=== PATIENT | male | born 1980 | race Caucasian/White ===

== ENCOUNTER 2017-11-11 21:53 | Emergency (ER) | payer MEDICAID, SELFPAY ==
[2017-11-11 21:53] VITALS: BP 126/83; PULSE 77; RESP 16; TEMP 36.7; O2SAT 97; BMI 31.4
--- NOTE | 2017-11-11 22:45 | ED.VISSUMM ---
- ER Visit Summary Date of Service: 11/11/17 Chief Complaint: [] Earache History of Present Illness: The patient is a 37 M [] Complaining of bilateral earache for the last 10 days. Reports he was seen in this emergency department and provided with a nasal decongestant after evaluation of his ears revealed fluid behind the bilateral tympanic membranes. Patient reports the physician did not feel the patient required antibiotics. However he reports worsening discomfort and slight decrease in hearing. Denies fevers. Denies any other complaints at this time. Physical Examination: [] Afebrile, vital signs stable. Bilateral TMs show fluid behind the membrane as well as early signs of erythema consistent with early bilateral otitis media. Remainder of physical exam is unremarkable. Test Results: [] None. Emergency Department Course and Treatment: [] Patient provided azithromycin 500 mg orally in the emergency department with a prescription for azithromycin 250 mg #4. I encouraged PCP follow-up. Treatment Plan: [] Discharge on outpatient antibiotics. Disposition: [] Discharge, stable. Impression: [] Bilateral otitis media This note was generated with [employer] dictation software. It may contain incorrect words, spelling, and punctuation that were not noted in review of the chart prior to signing ED Disposition - Plan for ED Patient: Chief Complaint: Ear Problem Referrals: Care Physician,No Primary [Primary Care Provider] -
--- NOTE | 2017-11-11 22:47 | ED.DEP ---
ED Disposition - Plan for ED Patient: Disposition: Home or Assisted Living Chief Complaint: Ear Problem Instructions: ED Otitis Media Serous Adult Prescriptions: Azithromycin 250 mg PO DAILY #4 tab Referrals: Care Physician,No Primary [Primary Care Provider] -
[2017-11-11] MEDS: Azithromycin 250 MG Tablet 500 MG PO (22:49)
[2017-11-11 23:02] VITALS: RESP 18
== END 2017-11-11 23:02 | disposition home or self-care (01) ==
PROVIDERS: Emergency Provider Emergency Medicine
DX: H66.93 Otitis media, unspecified, bilateral (principal); E66.9 Obesity, unspecified; M31.1 Thrombotic microangiopathy; Z72.0 Tobacco use
CPT/HCPCS: 99283

== ENCOUNTER 2017-11-18 21:56 | Emergency (ER) | payer MEDICAID, SELFPAY ==
[2017-11-18 21:57] VITALS: BP 106/68; PULSE 96; RESP 15; TEMP 36.6; BMI 31.4
--- NOTE | 2017-11-18 23:00 | ED.VISSUMM ---
- ER Visit Summary Date of Service: 11/18/17 Chief Complaint: [] Left ear pain History of Present Illness: The patient is a 37 M [] complaining of left ear pain. Patient reports he was seen a few weeks ago and treated with antibiotics which started to clear up the discomfort. He was placed on a 5 day Z-Damon. He reports that discomfort started to slowly recur and he has slight difficulty with hearing. 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 He reports he cannot take steroids. Denies fevers. Physical Examination: [] HEENT: Moist mucous membranes. Examination of the bilateral tympanic membranes reveals erythema on the left side consistent with otitis media. Right TM is unremarkable. Test Results: [] None. Emergency Department Course and Treatment: [] Patient provided with a prescription for azithromycin and a single oral dose of azithromycin in the emergency department. He was provided 10 days worth of antibiotics. Treatment Plan: [] Follow-up with PCP. Disposition: [] Discharge, stable. Impression: [] Left otitis media History of TTP This note was generated with [employer] dictation software. It may contain incorrect words, spelling, and punctuation that were not noted in review of the chart prior to signing ED Disposition - Plan for ED Patient: Chief Complaint: Ear Problem Referrals: Care Physician,No Primary [Primary Care Provider] -
--- NOTE | 2017-11-18 23:02 | ED.DEP ---
ED Disposition - Plan for ED Patient: Disposition: Home or Assisted Living Chief Complaint: Ear Problem Instructions: ED Otitis Media Acute Adult Prescriptions: Azithromycin 250 mg PO DAILY 10 Days #10 tab Referrals: Care Physician,No Primary [Primary Care Provider] -
[2017-11-18] MEDS: Azithromycin 250 MG Tablet 500 MG PO (23:10)
[2017-11-18 23:11] VITALS: RESP 18
== END 2017-11-18 23:11 | disposition home or self-care (01) ==
PROVIDERS: Emergency Provider Emergency Medicine
DX: H66.92 Otitis media, unspecified, left ear (principal); M31.1 Thrombotic microangiopathy
CPT/HCPCS: 99283

== ENCOUNTER 2018-02-14 12:06 | Emergency (ER) | payer MEDICAID, SELFPAY ==
[2018-02-14 12:06] VITALS: BP 129/88; PULSE 80; RESP 16; TEMP 36.8; O2SAT 97; BMI 35.9
--- NOTE | 2018-02-14 12:20 | RAD_ITS ---
STUDY: X-RAY - RIGHT WRIST REASON FOR EXAM: Male, 38 years old. Wrist pain TECHNIQUE: 3 view(s) of the wrist were obtained. COMPARISON: None. FINDINGS: Normal visualized distal radius and ulna. Normal radiocarpal articulation. Normal distal radioulnar articulation. Normal carpal bones. Normal carpal articulations. Normal carpometacarpal articulation of the thumb. Normal second through fifth carpometacarpal articulations. Normal visualized metacarpal bones. The soft tissue structures are unremarkable. RAD/Wrist min 3 Views IMPRESSION: Normal x-ray examination of the wrist. Electronically Signed: Ayden Garcia MD at 12:42 EDT Tel , Service support ,
--- NOTE | 2018-02-14 13:19 | ED.VISSUMM ---
- ER Visit Summary Date of Service: 02/14/18 Chief Complaint: Pain right wrist] History of Present Illness: The patient is a 38 M [presents the emergency department with pain in his right wrist ?2 weeks. Patient denies any direct trauma. 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 Patient is right-hand dominant. Patient states that in the morning typically has a hard time making a fist. Patient describes numbness to his entire hand. Physical Examination: [HEENT-PERRLA, EOMI. Cranial nerves II through XII grossly intact. TMs clear. Mucous membranes moist. No adenopathy. Cardiovascular-regular rate and rhythm without murmur or ectopy Lungs-clear to auscultation, chest wall stable without crepitus or subcu emphysema Abdomen-normoactive bowel sounds, soft, nontender, no rebound or rigidity, no peritoneal signs. Extremities-intact ?4, normal range of motion, normal pulses, atraumatic]. Right wrist-no swelling or ecchymosis noted. No deformity. Neurovascular intact distally. I cannot reproduce his pain with palpation. Negative Tinel's. No thenar eminence wasting noted. Test Results: [X-rays of the right wrist obtained by nursing staff from triage was normal] Emergency Department Course and Treatment: [Patient will be given a wrist splint] Treatment Plan: [Patient will be advised to follow-up with orthopedics on-call within next 5-7 days] Disposition: [Discharged home in stable condition] Impression: [Right wrist pain-etiology uncertain] This note was generated with [employer] dictation software. It may contain incorrect words, spelling, and punctuation that were not noted in review of the chart prior to signing ED Disposition - Plan for ED Patient: Chief Complaint: Upper Extremity Injury Referrals: Care Physician,No Primary [Primary Care Provider] -
--- NOTE | 2018-02-14 13:22 | ED.DCSUM_ITS ---
- ER Visit Summary Date of Service: 02/14/18 Chief Complaint: Pain right wrist] History of Present Illness: The patient is a 38 M [presents the emergency department with pain in his right wrist ?2 weeks. Patient denies any direct trauma. 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 Patient is right-hand dominant. Patient states that in the morning typically has a hard time making a fist. Patient describes numbness to his entire hand. Physical Examination: [HEENT-PERRLA, EOMI. Cranial nerves II through XII grossly intact. TMs clear. Mucous membranes moist. No adenopathy. Cardiovascular-regular rate and rhythm without murmur or ectopy Lungs-clear to auscultation, chest wall stable without crepitus or subcu emphysema Abdomen-normoactive bowel sounds, soft, nontender, no rebound or rigidity, no peritoneal signs. Extremities-intact ?4, normal range of motion, normal pulses, atraumatic]. Right wrist-no swelling or ecchymosis noted. No deformity. Neurovascular intact distally. I cannot reproduce his pain with palpation. Negative Tinel' s. No thenar eminence wasting noted. Test Results: [X-rays of the right wrist obtained by nursing staff from triage was normal] Emergency Department Course and Treatment: [Patient will be given a wrist splint ] Treatment Plan: [Patient will be advised to follow-up with orthopedics on-call within next 5-7 days] Disposition: [Discharged home in stable condition] Impression: [Right wrist pain-etiology uncertain] This note was generated with [employer] dictation software. It may contain incorrect words, spelling, and punctuation that were not noted in review of the chart prior to signing ED Disposition - Plan for ED Patient: Chief Complaint: Upper Extremity Injury Referrals: Care Physician,No Primary [Primary Care Provider] -
--- NOTE | 2018-02-14 13:22 | ED.DEP ---
ED Disposition - Plan for ED Patient: Chief Complaint: Upper Extremity Injury Instructions: ED Sprain Wrist Prescriptions: Hydrocodone/Acetaminophen [[place] 5-325 Tablet] 1 - 2 ea PO 4X/DAY PRN PRN 3 Days #12 tab PRN Reason: Pain Referrals: Care Physician,No Primary [Primary Care Provider] - Eric Parkinson MD [STAFF PHYSICIAN] - 5-7 Days
[2018-02-14 13:43] VITALS: PULSE 71; RESP 22; O2SAT 97
--- NOTE | 2018-02-14 13:44 | ED.RN ---
THIS NURSE REVIEWED D/C INSTRUCTIONS WITH PT. PT VERBALIZED UNDERSTANDING OF INSTRUCTIONS. PT DENIES FURTHER NEEDS OR QUESTIONS AT THIS TIME. PT AMBULATES FROM ROOM ON OWN WITHOUT ASSISTANCE FROM[facility]
== END 2018-02-14 13:44 | disposition home or self-care (01) ==
LOC: ED 13:28
PROVIDERS: Emergency Provider Emergency Medicine
DX: M25.531 Pain in right wrist (principal); Z72.0 Tobacco use
CPT/HCPCS: 73110; 99283

== ENCOUNTER 2018-06-06 20:09 | Emergency (ER) | payer MEDICAID, SELFPAY ==
[2018-06-06 20:10] VITALS: BP 130/78; PULSE 83; RESP 16; TEMP 36.5; O2SAT 97; BMI 36.3
--- NOTE | 2018-06-06 20:41 | ED.VISSUMM ---
- ER Visit Summary Date of Service: 06/06/18 Chief Complaint: Left ankle pain History of Present Illness: The patient is a 38 M who presents with left ankle pain that began tonight. Patient states he was stepping off of his porch when he felt pain in his ankle. Patient thinks he hyper dorsiflexed his ankle. Patient states the pain is over the posterior aspect of his left ankle. Patient states the pain is worse with weightbearing. Patient also admits to some numbness in his left heel with weightbearing. Patient denies any weakness. Patient denies any other paresthesias. Patient denies any calf pain. Physical Examination: Vital signs are stable. Patient is afebrile. Patient is in no acute distress. Musculoskeletal exam reveals tenderness over the posterior aspect of the left ankle. Achilles tendon is intact. Perry test is negative. Pedal pulses are equal bilaterally. Sensation was intact to light touch in all digits. Capillary refill is less than 2 seconds in all digits. Range of motion of the ankle was limited secondary to pain. There is no laxity appreciated. The remaining physical exam is within normal limits. Test Results: X-rays of the left ankle were obtained. There is no acute fracture. Emergency Department Course and Treatment: Patient was given an Aircast and crutches. Patient was instructed to ice and elevate the left ankle. Patient was given a prescription for Naprosyn. Patient was instructed to follow-up with his primary care physician in 7-10 days. Disposition: Discharge home Impression: Left ankle pain This note was generated with [employer] dictation software. It may contain incorrect words, spelling, and punctuation that were not noted in review of the chart prior to signing ED Disposition - Plan for ED Patient: Disposition: Home or Assisted Living Chief Complaint: Lower Extremity Injury Diagnosis: Left ankle sprain Instructions: ED Sprain Ankle W X Ray Prescriptions: Naproxen [Naprosyn] 500 mg PO BID PRN #20 tab Referrals: Care Physician,No Primary [NON-STAFF] -
== END 2018-06-06 22:11 | disposition home or self-care (01) ==
PROVIDERS: Emergency Provider Emergency Medicine
DX: M25.572 Pain in left ankle and joints of left foot (principal); S93.402A Sprain of unspecified ligament of left ankle, initial encounter; M31.1 Thrombotic microangiopathy; Z72.0 Tobacco use; X58.XXXA Exposure to other specified factors, initial encounter; Y93.01 Activity, walking, marching and hiking; Y92.008 Other place in unspecified non-institutional (private) residence as the place of occurrence of the external cause; Y99.8 Other external cause status
CPT/HCPCS: 73610; 99284

== ENCOUNTER 2018-08-08 12:54 | Emergency (ER) | payer MEDICAID, SELFPAY ==
[2018-08-08 12:55] VITALS: BP 141/89; PULSE 87; RESP 17; TEMP 36.6; O2SAT 97; BMI 35.2
--- NOTE | 2018-08-08 13:07 | RAD_ITS ---
STUDY: X-RAY - LEFT SHOULDER REASON FOR EXAM: Left shoulder pain, no specific injury. TECHNIQUE: 3 view(s) of the shoulder. COMPARISON: None. FINDINGS: Normal glenohumeral articulation. Normal acromioclavicular joint. Normal acromion. There is chronic healed fracture deformity of the clavicle. Normal humeral head and visualized proximal humerus. The soft tissue structures are unremarkable. Normal visualized pulmonary apex. RAD/Shoulder min 2 Views IMPRESSION: Chronic healed fracture deformity of the clavicle. Otherwise, unremarkable x-ray examination of the left shoulder. Electronically Signed: Abhinav Recinos MD at 13:55 EDT Tel , Service support ,
[2018-08-08] MEDS: Naproxen 500 MG Tablet PO (13:20)
--- NOTE | 2018-08-08 14:06 | ED.VISSUMM ---
- ER Visit Summary Date of Service: 08/08/18 Chief Complaint: Left shoulder pain History of Present Illness: The patient is a 38 M who has no primary care physician. He is right-hand dominant. Reports that 2 days ago he woke up with left shoulder pain. He denies any trauma. No fall, MVA, or change in activity. Reports that the stabbing pain is 10 at 10 worsening a 10 currently. Is worsened by movement. Son relieved by Tylenol. He denies any numbness distally. Physical Examination: Vitals: Stable. Afebrile. General: Well-nourished and well-developed. Head: Normocephalic atraumatic. Neck: Supple, no lymphadenopathy. No JVD. Nontender. Cardiovascular: Regular rate and rhythm. No murmurs. Respiratory: No respiratory distress. Clear to auscultation bilaterally. Abdominal: Soft, nontender, nondistended, normal bowel sounds. No guarding, rebound, or peritoneal signs. Back: Nontender. Extremities: Mild diffuse tenderness palpation over his entire left shoulder. There is moderate pain in the bicipital groove. He has full range of motion without any difficulty. No erythema or warmth to suggest a septic joint. He is neurovascular intact distally. Skin: Normal color, no rash. Neurologic: Alert and oriented ?3. Cranial nerves II through XII are intact. Normal strength and sensation. Psych: Normal affect. Test Results: X-ray shows a healed clavicle fracture and no acute disease. Emergency Department Course and Treatment: Patient was treated with naproxen. He is resting comfortably. Treatment Plan: Patient will be discharged instructions to follow-up the [facility] in 1 week if not improving. He will be placed on naproxen at home. Return to the emergency department for any worsening symptoms. Disposition: To home in improved and stable condition. Impression: 1. Left shoulder pain, acute. This note was generated with [employer] dictation software. It may contain incorrect words, spelling, and punctuation that were not noted in review of the chart prior to signing ED Disposition - Plan for ED Patient: Disposition: Home or Assisted Living Chief Complaint: Upper Extremity Injury Instructions: ED Shoulder Pain [facility] Prescriptions: Naproxen [Naprosyn] 500 mg PO BID #14 tablet Referrals: Krista Brumfield [NON-STAFF] - 1 Week if not improving
[2018-08-08 14:41] VITALS: PULSE 87; RESP 14; O2SAT 98
== END 2018-08-08 14:41 | disposition home or self-care (01) ==
LOC: ED 13:47
PROVIDERS: Emergency Provider Emergency Medicine
DX: M25.512 Pain in left shoulder (principal); M31.1 Thrombotic microangiopathy; Z72.0 Tobacco use; Z79.899 Other long term (current) drug therapy
CPT/HCPCS: 73030; 99282

== ENCOUNTER 2018-10-04 14:34 | Emergency (ER) | payer MEDICAID, SELFPAY ==
[2018-10-04 14:34] VITALS: BMI 31.4
[2018-10-04 14:36] VITALS: BP 126/74; PULSE 87; RESP 17; TEMP 36.1; O2SAT 97; BMI 37.7
--- NOTE | 2018-10-04 15:20 | ED.VISSUMM ---
- ER Visit Summary Date of Service: 10/04/18 Chief Complaint: Abrupt periumbilical pain that started at approximately noon associated with 2 loose watery stools. History of Present Illness: The patient is a 38 M who presents with acute periumbilical pain that started approximately at noon. He reports 2 loose watery brown stool since onset of pain. He denies vomiting. He denied him emesis, hematochezia or melena. He denies mucus or blood in his stool. He has had no ill contacts. He has not been on antibiotics in the past month. He has not consumed any undercooked food or anything that tasted unusual to him. He does complain of thirst, dry mouth and lightheadedness. He denies fever, chills or night sweats. He denies ocular, visual or auditory symptoms. He denies cardiac or respiratory symptoms. He denies decreased urine output or change in color his urine. He denies any inguinal or testicular pain. He denies skin lesions, joint pain or joint swelling Physical Examination: Vital signs noted and remarkable for blood pressure of 126/74 and temperature 96.9. Head is atraumatic normocephalic. Pupils are equal round reactive. Extraocular muscles are intact. TMs are pearly white with landmarks noted. Nares patent with no drainage. Posterior pharynx without erythema or exudate. Uvula is midline. Tongue and buccal mucosa are dry. There is no dysphonia or dysphasia. Trachea is midline. There is no stridor with auscultation of the neck. Heart is regular without murmur, gallop or rub. S1 and S2 are normal. Lungs are clear to auscultation with good movement of air bilaterally. Abdomen is soft nontender with no palpable pulsatile mass or abdominal bruit. There is no evidence of umbilical or inguinal hernia. There is no ventral hernia. There are no skin lesions. He has no inguinal lymphadenopathy. There is no CVA tenderness noted. Test Results: None Emergency Department Course and Treatment: IV was established she received 1 L of normal saline. He was treated with Imodium for his diarrhea. Since the last Bentyl as an allergy he was not given anything for his cramping pain. Plan is to reassess after IV fluids have infused. At 1605 patient reported he feels better would like to go home. He has not had any vomiting or diarrhea during his stay. He tolerated p.o. challenge. Treatment Plan: Appropriate home-going instructions for viral gastroenteritis Disposition: Discharged home in stable improved condition Impression: 1. Abdominal pain with diarrhea 2. Mild dehydration 3. Tobacco use This note was generated with [employer] dictation software. It may contain incorrect words, spelling, and punctuation that were not noted in review of the chart prior to signing ED Disposition - Plan for ED Patient: Disposition: Home or Assisted Living Chief Complaint: Abd Pain Instructions: ED Diarrhea Viral Referrals: Care Physician,No Primary [Primary Care Provider] - Additional Instructions: If you have recurrence or any concerns contact your primary care physician that you were assigned to by your insurance carrier [facility]. The name of your doctor is listed on your insurance card
[2018-10-04] MEDS: Loperamide 2 MG Capsule 4 MG PO (15:21)
[2018-10-04] MEDS: 0.9% Normal Saline 1,000 ML 1000 ML IV (15:21)
--- NOTE | 2018-10-04 15:23 | ED.DCSUM_ITS ---
- ER Visit Summary Date of Service: 10/04/18 Chief Complaint: Abrupt periumbilical pain that started at approximately noon associated with 2 loose watery stools. History of Present Illness: The patient is a 38 M who presents with acute periumbilical pain that started approximately at noon. He reports 2 loose watery brown stool since onset of pain. He denies vomiting. He denied him emesis, hematochezia or melena. He denies mucus or blood in his stool. He has had no ill contacts. He has not been on antibiotics in the past month. He has not consumed any undercooked food or anything that tasted unusual to him. He does complain of thirst, dry mouth and lightheadedness. He denies fever, chills or night sweats. He denies ocular, visual or auditory symptoms. He denies cardiac or respiratory symptoms. He denies decreased urine output or change in color his urine. He denies any inguinal or testicular pain. He denies skin lesions, joint pain or joint swelling Physical Examination: Vital signs noted and remarkable for blood pressure of 126/74 and temperature 96.9. Head is atraumatic normocephalic. Pupils are equal round reactive. Extraocular muscles are intact. TMs are pearly white with landmarks noted. Nares patent with no drainage. Posterior pharynx without erythema or exudate. Uvula is midline. Tongue and buccal mucosa are dry. There is no dysphonia or dysphasia. Trachea is midline. There is no stridor with auscultation of the neck. Heart is regular without murmur, gallop or rub. S1 and S2 are normal. Lungs are clear to auscultation with good movement of air bilaterally. Abdomen is soft nontender with no palpable pulsatile mass or abdom inal bruit. There is no evidence of umbilical or inguinal hernia. There is no ventral hernia. There are no skin lesions. He has no inguinal lymphadenopathy. There is no CVA tenderness noted. Test Results: None Emergency Department Course and Treatment: IV was established she received 1 L of normal saline. He was treated with Imodium for his diarrhea. Since the last Bentyl as an allergy he was not given anything for his cramping pain. Plan is to reassess after IV fluids have infused. At 1605 patient reported he feels better would like to go home. He has not had any vomiting or diarrhea during his stay. He tolerated p.o. challenge. Treatment Plan: Appropriate home-going instructions for viral gastroenteritis Disposition: Discharged home in stable improved condition Impression: 1. Abdominal pain with diarrhea 2. Mild dehydration 3. Tobacco use This note was generated with [employer] dictation software. It may contain incorrect words, spelling, and punctuation that were not noted in review of the chart prior to signing ED Disposition - Plan for ED Patient: Disposition: Home or Assisted Living Chief Complaint: Abd Pain Instructions: ED Diarrhea Viral Referrals: Care Physician,No Primary [Primary Care Provider] - Additional Instructions: If you have recurrence or any concerns contact your primary care physician that you were assigned to by your insurance carrier [facility]. The name of your doctor is listed on your insurance card
[2018-10-04 15:24] VITALS: BP 114/80; PULSE 70; RESP 16; TEMP 36.3; O2SAT 97
[2018-10-04 16:15] VITALS: BP 112/82; PULSE 80; RESP 14; RESP 17; TEMP 36.3; O2SAT 99
== END 2018-10-04 16:17 | disposition home or self-care (01) ==
PROVIDERS: Emergency Provider Emergency Medicine
DX: R10.33 Periumbilical pain (principal); R19.7 Diarrhea, unspecified; E86.0 Dehydration; Z72.0 Tobacco use
CPT/HCPCS: 99283; J7030; A4216

== ENCOUNTER 2018-12-13 00:02 | Emergency (ER) | payer MEDICAID, SELFPAY ==
[2018-12-13 00:03] VITALS: BP 175/98; PULSE 103; RESP 20; TEMP 36.6; O2SAT 100; BMI 37.8
--- NOTE | 2018-12-13 00:17 | RAD_ITS ---
STUDY: X-RAY - LEFT FOOT CLINICAL: Male, 38 years old. Right great toe pain status post crush injury. TECHNIQUE: 3 view(s) of the foot. COMPARISON: None. FINDINGS: Normal talus, calcaneus, and tarsal bones. Normal visualized subtalar, talonavicular, calcaneocuboid, tarsal and tarsometatarsal articulations. Normal metatarsi. Normal metatarsophalangeal joint of the great toe. Normal tibial and fibular sesamoid bones. Normal interphalangeal joint of the great toe. Normal phalanges of the great toe. Normal second through fifth metatarsophalangeal joints. Normal interphalangeal joints and phalanges of the lesser toes. The soft tissue structures are unremarkable. RAD/Foot min 3 Views IMPRESSION: Normal x-ray examination of the foot. Electronically Signed: Ba Obrien MD at 1:02 EST Tel , Service support ,
--- NOTE | 2018-12-13 01:08 | ED.VIS.GEN ---
History of Present Illness Chief Complaint: Lower Extremity Injury Informant: Patient Onset: Today, Hours - 1 Context: Sudden Onset - accidentally dropped foot of a couch on his left foot Timing: Continuous Quality: pain Location: left foot Current Severity: Moderate Maximum Severity: Severe Worsened by: palpation, movement, walking Relieved by: remaining still/rest Associated Symptoms: none. no numbness. no laceration/bleeding. - Past Medical History (1) TTP (thrombotic thrombocytopenic purpura) Status: Chronic Past Medical History - Allergies and Home Meds Allergies/Adverse Reactions: Allergies adhesive Allergy (Verified 10/04/18 14:35) Rash dicyclomine HCl [From Bentyl] Allergy (Verified 10/04/18 14:35) Hives fentanyl Allergy (Verified 10/04/18 14:35) Hives Latex, Natural Rubber Allergy (Verified 10/04/18 14:35) Rash methadone Allergy (Verified 10/04/18 14:35) Other hard to swallow morphine Allergy (Verified 10/04/18 14:35) Swelling prednisone Allergy (Verified 10/04/18 14:35) Rash tramadol HCl [From Ultram] Allergy (Verified 10/04/18 14:35) Hives aspirin Adverse Reaction (Verified 10/04/18 14:35) Other hx of TTP-drops platelets ketorolac tromethamine [From Toradol] Adverse Reaction (Verified 10/04/18 14:35) Upset Stomach Primary Care Physician: Care Physician,No Primary [Primary Care Provider] - Surgical History: - - Ports put in for therapy of TTP, removed Lives: Spouse/ Significant Other Smoking Status: Current every day smoker - Family History Maternal Family History: Reports: - - Lung cancer, Paternal Family History: Reports: - - , unknown cause Offspring Family History: Reports: - - Brother, mental illness, type unknown Review of Systems Musculoskeletal: Reports: Extremity Pain. Denies: Neck pain Skin: Reports: Abrasions - no lacerations Neurological: Denies: Weakness, Numbness Physical Exam Vital Signs/Narrative: Vital Signs Temp Pulse Resp BP Pulse Ox 12/13/18 00:03 97.9 F 103 H 20 H 175/98 H 100 Inital Vital Signs reviewed: Yes General: Well nourished, Well developed, No Acute Distress Head: Normocephalic, Atraumatic Extremities: No edema, Tenderness - very tender dorsum of left foot, over MT 1-3. less tender over navicular. nontender toes and ankle and lateral/peroneal aspect of foot. FROM at ankle w/o diff. Skin: Normal color, Trauma - mild contusion dorsum of left foot, over MT 1-2 area. skin intact. Neurological: Alert, Oriented x3, Cranial nerves II-XII grossly intact, Normal Strength, Normal Sensation Psychological: Normal affect, Normal Mood Diagnostic/Tx/Re-eval Clinical Impression(s) from Imaging Studies Foot X-Ray 12/13/18 00:17 IMPRESSION: Normal x-ray examination of the foot. Electronically Signed: Ba Obrien MD at 1:02 EST Tel , Service support , - Medical Decision Making X-ray shows no acute fractures or Lisfranc injury. Patient was given a postop shoe for comfort as well as a dose of ibuprofen and advised to use ibuprofen and ice at home as needed. He was advised to follow-up to have his blood pressure rechecked. ED Disposition - Plan for ED Patient: Disposition: Home or Assisted Living Diagnosis: Contusion of left foot, initial encounter Instructions: ED Contusion Foot Referrals: Krista Brumfield [NON-STAFF] - As Needed Additional Instructions: Apply ice to affected area and take tylenol and/or ibuprofen as needed for pain. Use Post-op shoe as needed, for as long as you feel you need to.
--- NOTE | 2018-12-13 01:12 | ED.DCSUM_ITS ---
History of Present Illness Chief Complaint: Lower Extremity Injury Informant: Patient Onset: Today, Hours - 1 Context: Sudden Onset - accidentally dropped foot of a couch on his left foot Timing: Continuous Quality: pain Location: left foot Current Severity: Moderate Maximum Severity: Severe Worsened by: palpation, movement, walking Relieved by: remaining still/rest Associated Symptoms: none. no numbness. no laceration/bleeding. - Past Medical History (1) TTP (thrombotic thrombocytopenic purpura) Status: Chronic Past Medical History - Allergies and Home Meds Allergies/Adverse Reactions: Allergies adhesive Allergy (Verified 10/04/18 14:35) Rash dicyclomine HCl [From Bentyl] Allergy (Verified 10/04/18 14:35) Hives fentanyl Allergy (Verified 10/04/18 14:35) Hives Latex, Natural Rubber Allergy (Verified 10/04/18 14:35) Rash methadone Allergy (Verified 10/04/18 14:35) Other hard to swallow morphine Allergy (Verified 10/04/18 14:35) Swelling prednisone Allergy (Verified 10/04/18 14:35) Rash tramadol HCl [From Ultram] Allergy (Verified 10/04/18 14:35) Hives aspirin Adverse Reaction (Verified 10/04/18 14:35) Other hx of TTP-drops platelets ketorolac tromethamine [From Toradol] Adverse Reaction (Verified 10/04/18 14:35) Upset Stomach Primary Care Physician: Care Physician,No Primary [Primary Care Provider] - Surgical History: - - Ports put in for therapy of TTP, removed Lives: Spouse/ Significant Other Smoking Status: Current every day smoker - Family History Maternal Family History: Reports: - - Lung cancer, Paternal Family History: Reports: - - , unknown cause Offspring Family History: Reports: - - Brother, mental illness, type unknown Review of Systems Musculoskeletal: Reports: Extremity Pain. Denies: Neck pain Skin: Reports: Abrasions - no lacerations Neurological: Denies: Weakness, Numbness Physical Exam Vital Signs/Narrative: Vital Signs Temp Pulse Resp BP Pulse Ox 12/13/18 00:03 97.9 F 103 H 20 H 175/98 H 100 Inital Vital Signs reviewed: Yes General: Well nourished, Well developed, No Acute Distress Head: Normocephalic, Atraumatic Extremities: No edema, Tenderness - very tender dorsum of left foot, over MT 1- 3. less tender over navicular. nontender toes and ankle and lateral/peroneal aspect of foot. FROM at ankle w/o diff. Skin: Normal color, Trauma - mild contusion dorsum of left foot, over MT 1-2 area. skin intact. Neurological: Alert, Oriented x3, Cranial nerves II-XII grossly intact, Normal Strength, Normal Sensation Psychological: Normal affect, Normal Mood Diagnostic/Tx/Re-eval Clinical Impression(s) from Imaging Studies Foot X-Ray 12/13/18 00:17 IMPRESSION: Normal x-ray examination of the foot. Electronically Signed: Ba Obrien MD at 1:02 EST Tel , Service support , - Medical Decision Making X-ray shows no acute fractures or Lisfranc injury. Patient was given a postop shoe for comfort as well as a dose of ibuprofen and advised to use ibuprofen and ice at home as needed. He was advised to follow-up to have his blood pressure rechecked. ED Disposition - Plan for ED Patient: Disposition: Home or Assisted Living Diagnosis: Contusion of left foot, initial encounter Instructions: ED Contusion Foot Referrals: Krista Brumfield [NON-STAFF] - As Needed Additional Instructions: Apply ice to affected area and take tylenol and/or ibuprofen as needed for pain. Use Post-op shoe as needed, for as long as you feel you need to.
[2018-12-13] MEDS: Ibuprofen 600 MG Tablet PO (01:13)
[2018-12-13 01:15] VITALS: RESP 18
== END 2018-12-13 01:16 | disposition home or self-care (01) ==
PROVIDERS: Emergency Provider Emergency Medicine
DX: S90.32XA Contusion of left foot, initial encounter (principal); M31.1 Thrombotic microangiopathy; F17.200 Nicotine dependence, unspecified, uncomplicated; W20.8XXA Other cause of strike by thrown, projected or falling object, initial encounter; Y93.89 Activity, other specified; Y92.009 Unspecified place in unspecified non-institutional (private) residence as the place of occurrence of the external cause; Y99.8 Other external cause status
CPT/HCPCS: 73630; 99283

== ENCOUNTER 2019-01-25 20:17 | Emergency (ER) | payer MEDICAID, SELFPAY ==
[2019-01-25 20:19] VITALS: BP 131/95; PULSE 96; RESP 16; TEMP 36.8; O2SAT 96; BMI 34.4
--- NOTE | 2019-01-25 21:20 | RAD_ITS ---
STUDY: X-RAY - RIGHT SHOULDER REASON FOR EXAM: Male, 38 years old. Shoulder pain. TECHNIQUE: 4 view(s) of the shoulder. COMPARISON: Left shoulder dated August 08, 2018 FINDINGS: Normal glenohumeral articulation. Normal acromioclavicular joint. Normal acromion. Normal humeral head and visualized proximal humerus. The soft tissue structures are unremarkable. Normal visualized pulmonary apex. RAD/Shoulder min 2 Views IMPRESSION: Within normal limits x-ray examination of the shoulder. Electronically Signed: Diane Lopez MD at 22:06 EDT Tel , Service support ,
[2019-01-25] MEDS: Orphenadrine 60 MG/2 ML Ampul IM (21:50)
--- NOTE | 2019-01-25 23:02 | ED.DEP ---
ED Disposition - Plan for ED Patient: Instructions: ED Sprain Shoulder Prescriptions: Cyclobenzaprine [Flexeril] 10 mg PO TID PRN #20 tablet PRN Reason: Muscle Spasm Referrals: Care Physician,No Primary [Primary Care Provider] -
--- NOTE | 2019-01-25 23:06 | ED.VISSUMM ---
- ER Visit Summary Date of Service: 01/25/19 Chief Complaint: Right shoulder pain History of Present Illness: The patient is a 38 M presenting with right shoulder pain. He states he woke up with the symptoms and felt that he may have slept on his shoulder wrong. 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 He states it worsened while at work. He had no direct trauma. Pain is worsened with movement. Denies other complaints. Physical Examination: Vitals are stable. Patient is afebrile. Alert no acute distress. HEENT exam is unremarkable. Neck is supple. Lungs are clear and equal bilaterally. Heart is regular rate and rhythm. Extremities right anterior shoulder tenderness with painful range of motion. Neurovascularly intact distally Skin is warm and dry. No focal neurologic deficit. Normal strength and sensation Remainder of exam is unremarkable. Emergency Department Course and Treatment: Patient was given Norflex IM. On reevaluation he is resting comfortably. He is given a prescription for Flexeril. Advised to follow-up with his primary care physician. Advised return to ED if worsening complaints. Disposition: Discharge home Impression: Right shoulder sprain This note was generated with [employer] dictation software. It may contain incorrect words, spelling, and punctuation that were not noted in review of the chart prior to signing ED Disposition - Plan for ED Patient: Instructions: ED Sprain Shoulder Prescriptions: Cyclobenzaprine [Flexeril] 10 mg PO TID PRN #20 tablet PRN Reason: Muscle Spasm Referrals: Care Physician,No Primary [Primary Care Provider] -
[2019-01-25 23:29] VITALS: BP 124/88; PULSE 93; RESP 18; O2SAT 96
--- NOTE | 2019-01-25 23:30 | ED.RN ---
WORK NOTE GIVEN BY DR. DACOSTA.
== END 2019-01-25 23:31 | disposition home or self-care (01) ==
PROVIDERS: Emergency Provider Emergency Medicine
DX: S43.401A Unspecified sprain of right shoulder joint, initial encounter (principal); Z72.0 Tobacco use; X58.XXXA Exposure to other specified factors, initial encounter; Y93.84 Activity, sleeping; Y92.003 Bedroom of unspecified non-institutional (private) residence as the place of occurrence of the external cause; Y99.8 Other external cause status
CPT/HCPCS: 73030; 96372; 99282

== ENCOUNTER 2019-03-13 17:57 | Emergency (ER) | payer MEDICAID, SELFPAY ==
[2019-03-13 17:57] VITALS: BP 120/77; PULSE 106; RESP 18; TEMP 36.8; O2SAT 97; BMI 34.4
--- NOTE | 2019-03-13 18:29 | ED.DCSUM_ITS ---
History of Present Illness Chief Complaint: Cold Sx Informant: Patient Onset: Weeks - 1.5 to 2 weeks ago Context: Sudden Onset Timing: Continuous Quality: URI symptoms Location: Respiratory Current Severity: Mild Maximum Severity: Moderate Worsened by: Smoking and coughing Relieved by: Nothing Associated Symptoms: no fever or chills. Positive nasal symptoms Narrative: Patient is a 39-year-old male who is a smoker 1 pack/day presents with 1.5 to 2 weeks of respiratory symptoms. He reports productive cough of yellow to green- colored sputum. He denies fever or chills. He denies ocular, visual or auditory symptoms. He does report mild nasal congestion initially. He denies history of PE or DVT. He has no risk factors. He denies cardiac or GI symptoms. He denies leg pain, swelling discoloration. Prior similar symptoms: No Recent Illness/Hospitalization: No - Past Medical History (1) Obesity (BMI 30.0-34.9) Status: Chronic (2) TTP (thrombotic thrombocytopenic purpura) Status: Chronic (3) Hemorrhoids Status: Suspected Past Medical History - Allergies and Home Meds Allergies/Adverse Reactions: Allergies adhesive Allergy (Verified 03/13/19 17:59) Rash dicyclomine HCl [From Bentyl] Allergy (Verified 03/13/19 17:59) Hives fentanyl Allergy (Verified 03/13/19 17:59) Hives Latex, Natural Rubber Allergy (Verified 03/13/19 17:59) Rash methadone Allergy (Verified 03/13/19 17:59) Other hard to swallow morphine Allergy (Verified 03/13/19 17:59) Swelling prednisone Allergy (Verified 03/13/19 17:59) Rash tramadol HCl [From Ultram] Allergy (Verified 03/13/19 17:59) Hives aspirin Adverse Reaction (Verified 03/13/19 17:59) Other hx of TTP-drops platelets ketorolac tromethamine [From Toradol] Adverse Reaction (Verified 03/13/19 17:59) Upset Stomach Primary Care Physician: Care Physician,No Primary [Primary Care Provider] - Prior records reviewed: Yes Surgical History: no surgical history, - - Ports put in for therapy of TTP, removed Lives: Alone Smoking Status: Current every day smoker Alcohol: Rare - Family History Maternal Family History: Reports: - - Lung cancer, Paternal Family History: Reports: - - , unknown cause Offspring Family History: Reports: - - Brother, mental illness, type unknown Review of Systems General: Denies: Chills, Fever, Malaise, Subjective, Sweats, Weight loss, - Eyes: Denies: Visual changes - bilaterally, Blurred Vision - bilaterally ENT: Denies: Bilateral ear pain, Rhinorrhea, Sore throat Cardiovascular: Denies: Chest pain, Palpitations Respiratory: Reports: Cough, Sputum. Denies: Dyspnea, Dyspnea on exertion, Orthopnea, Paroxysmal nocturnal dyspnea Gastrointestinal: Denies: Abdominal pain, Nausea, Vomiting, Diarrhea, Melena, Hematochezia Musculoskeletal: Denies: Myalgias, Arthralgias, Neck pain, Back pain, Swelling, Extremity Pain Skin: Denies: Rash, Wounds Neurological: Denies: Headache, Weakness, Numbness Hematologic: Denies: Easy bruising Allergy: Denies: Uticaria Physical Exam Vital Signs/Narrative: Vital Signs Temp Pulse Resp BP Pulse Ox 03/13/19 17:57 98.2 F 106 H 18 120/77 97 Inital Vital Signs reviewed: Yes General: Well nourished, Well developed, Obese, No Acute Distress Head: Normocephalic, Atraumatic Eyes: Perrl, EOMI. Negative for: Pale conjunctiva, Scleral icterus, - ENT: Moist mucous membranes, No rhinorrhea, TM's clear Neck: Supple, Nontender, No lymphadenopathy, No JVD Cardiovascular: Regular rhythm, No murmurs, Tachycardia Respiratory: No distress, CTA bilaterally, Chest nontender Abdomen: Soft, Nontender, Nondistended, Normal bowel sounds Extremities: Nontender, No edema Skin: Normal color, No rash Neurological: Alert, Oriented x3, Cranial nerves II-XII grossly intact, Normal Strength, Normal Sensation Psychological: Normal affect, Normal Mood Diagnostic/Tx/Re-eval Chest X-Ray - ED: 2 View, Read by ED Physician, Normal, Heart, Mediastinum, Bony Structures, - - The lateral view the retrocardiac space has interstitial markings suggestive of infiltrate. However respiratory volume is limited. - Medical Decision Making With symptoms for 2 weeks and productive cough will obtain chest x-ray to evaluate for pneumonia versus purulent bronchitis. Since patient has productive cough green-colored sputum for 1.5 to 2 weeks and is a smoker will place on doxycycline. X-ray may reveal a retrocardiac infiltrate. ED Disposition - Plan for ED Patient: Disposition: Home or Assisted Living Diagnosis: Community acquired pneumonia Instructions: ED Pneumonia Adult Prescriptions: Doxycycline 100 mg PO BID #14 cap Referrals: Care Physician,No Primary [Primary Care Provider] - Additional Instructions: If no improvement in 3 to 5 days follow-up with your [facility] care provider named on your insurance card. It is in your best interest to stop smoking. Your chest x-ray reveals abnormality and may represent an early pneumonia.
--- NOTE | 2019-03-13 18:35 | RAD_ITS ---
STUDY: X-RAY CHEST REASON FOR EXAM: Male, 39 years old. Cough TECHNIQUE: PA and lateral views of the chest COMPARISON: X-Ray Chest March 27 2018 FINDINGS: The lungs are clear. There are no pleural effusions. There is no pneumothorax. The heart is normal in size. The visualized osseous structures are within normal limits. RAD/Chest PA and Lateral IMPRESSION: No acute thoracic pathology. Electronically Signed: Chaim Almanza, at 18:49 EDT Tel , Service support ,
[2019-03-13] MEDS: Doxycycline 100 MG CAPSULE PO (19:02)
[2019-03-13 19:03] VITALS: BP 114/70; PULSE 75; RESP 19; O2SAT 96
== END 2019-03-13 19:05 | disposition home or self-care (01) ==
PROVIDERS: Emergency Provider Emergency Medicine
DX: J18.9 Pneumonia, unspecified organism (principal); F17.210 Nicotine dependence, cigarettes, uncomplicated; E66.9 Obesity, unspecified; M31.1 Thrombotic microangiopathy
CPT/HCPCS: 71046; 99283

== ENCOUNTER 2021-02-01 06:15 | Emergency (ER) | payer MEDICAID, SELFPAY ==
[2021-02-01 06:17] VITALS: BP 150/97; PULSE 107; RESP 18; TEMP 37.5; O2SAT 100; BMI 44.9
--- NOTE | 2021-02-01 06:46 | RAD_ITS ---
STUDY: X-RAY - RIGHT ANKLE REASON FOR EXAM: Right ankle injury 2 days ago, unable to bear weight, right foot pain. TECHNIQUE: 3 view(s) of the ankle. COMPARISON: Radiographs 04/28/2016. FINDINGS: Normal visualized distal tibia and fibula. Normal medial and lateral malleoli. Normal tibiotalar articulation and ankle mortise. There is a posterior calcaneal enthesophyte. The visualized subtalar, talonavicular, calcaneocuboid and tarsal articulations are normal. There is a chronic fracture of the fifth metatarsal base without osseous union as on the prior study. The soft tissue structures are unremarkable. RAD/Ankle min 3 Views IMPRESSION: Chronic fracture of the fifth metatarsal base without osseous union. Posterior calcaneal enthesophyte. No demonstrated recent fracture. Electronically Signed: Abhinav Recinos MD at 7:23 EDT Tel , Service support ,
--- NOTE | 2021-02-01 06:46 | RAD_ITS ---
STUDY: X-RAY - RIGHT FOOT CLINICAL: Right foot pain, right ankle injury 2 days ago, unable to bear weight. TECHNIQUE: 3 view(s) of the foot. COMPARISON: Radiographs 03/16/2011. FINDINGS: There is a posterior calcaneal enthesophyte. Otherwise, unremarkable talus, calcaneus, and tarsal bones. Normal visualized subtalar, talonavicular, calcaneocuboid, tarsal and tarsometatarsal articulations. There is chronic fracture of the fifth metatarsal base without osseous union as on the prior study. Normal metatarsophalangeal joint of the great toe. Normal tibial and fibular sesamoid bones. Normal interphalangeal joint of the great toe. Normal phalanges of the great toe. Normal second through fifth metatarsophalangeal joints. Normal interphalangeal joints and phalanges of the lesser toes. The soft tissue structures are unremarkable. RAD/Foot min 3 Views IMPRESSION: Chronic fracture of the fifth metatarsal base without osseous union. Posterior calcaneal enthesophyte. No demonstrated recent fracture. Electronically Signed: Abhinav Recinos MD at 7:21 EDT Tel , Service support ,
--- NOTE | 2021-02-01 06:46 | ED.DCSUM_ITS ---
- ER Visit Summary Date of Service: 02/01/21 Chief Complaint: Right ankle injury History of Present Illness: The patient is a 40 M who presents with a right ankle injury that occurred 2 days ago. Patient states he tripped and fell. Patient states he twisted his right ankle at that time. Patient states the pain is aching and throbbing. Patient states nothing makes it worse and nothing makes it better. Patient denies any paresthesias or weakness. Patient states he has been taking [id number] ibuprofen and Tylenol with minimal relief. Patient states that he has noticed some increased swelling today. Patient also states he has a court ordered counseling appointment today and is unsure if he will be able to make it if he has to use his crutches or cannot ambulate. Physical Examination: Vital signs are stable. Patient is afebrile. Patient is in no acute distress. Musculoskeletal exam reveals tenderness over the right ankle. There is some edema and ecchymosis noted. There is no obvious deformity. There is no bony crepitance or step-off. There is no tenderness over the proximal fibula. There is some mild tenderness over the fifth metatarsal. Pedal pulses are equal bilaterally. Sensation was intact to light touch in all digits. Capillary refill is less than 2 seconds in all digits. Test Results: X-rays of the right [ankle] were obtained. There are [3] views. On my interpretation, there is no acute fracture. There is no dislocation. There is no soft tissue swelling. Radiologist also interpreted the x-rays and agrees. X-rays of the right foot were obtained. There are [3] views. On my interpretation, there is no acute fracture. 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 There is no dislocation. There is no soft tissue swelling. Radiologist also interpreted the x-rays and agrees. Emergency Department Course and Treatment: Patient was given an Aircast. Patient was instructed to ice and elevate the right ankle and foot. Patient was instructed to take Tylenol as needed for pain. Patient was instructed to follow-up with his primary care physician in 5 to 7 days. Patient understood and was agreeable with the plan. All questions were answered. Disposition: Discharge home Impression: Acute sprain right ankle This note was generated with [employer] dictation software. It may contain incorrect words, spelling, and punctuation that were not noted in review of the chart prior to signing ED Disposition - Plan for ED Patient: Disposition: Home or Assisted Living Diagnosis: Right ankle sprain Instructions: ED Sprain Ankle W X Ray Referrals: [facility],Out of [NON-STAFF] - 5-7 Days
[2021-02-01] MEDS: HYDROcodone Bitartrate/Apap 5/325 Tablet PO (06:54)
--- NOTE | 2021-02-01 07:41 | ED.RN ---
walking boot ordered. pt aware none available. given aircast per dr pabon
== END 2021-02-01 07:55 | disposition home or self-care (01) ==
PROVIDERS: Emergency Provider Emergency Medicine
DX: S93.401A Sprain of unspecified ligament of right ankle, initial encounter (principal); W01.0XXA Fall on same level from slipping, tripping and stumbling without subsequent striking against object, initial encounter; Z87.891 Personal history of nicotine dependence
CPT/HCPCS: 73610; 73630; 99285

== ENCOUNTER 2021-05-18 18:13 | Emergency (ER) | payer MEDICAID, SELFPAY ==
[2021-05-18 18:14] VITALS: BP 140/86; PULSE 104; RESP 18; TEMP 36.4; O2SAT 97; BMI 37.6
--- NOTE | 2021-05-18 18:22 | RAD_ITS ---
HISTORY: pain EXAMINATION/TECHNIQUE: XR Forearm 2 Views: COMPARISON: None FINDINGS: BONES/JOINTS: No acute fracture or dislocation. Preservation of the joint spaces. No sclerotic or destructive changes observed. SOFT TISSUES: No soft tissue swelling or gas. No radiopaque foreign body. RAD/Forearm 2 Views IMPRESSION: Unremarkable study. at 1928 Reported and signed by: Georges Frey MD Electronically Signed: Georges Frey MD at 19:27 EDT Tel , Service support ,
--- NOTE | 2021-05-18 18:23 | EX.ED.UPPERE ---
HPI History of Present Illness Chief Complaint: Upper Extremity Injury Narrative Narrative: 41-year-old male presenting with right elbow and right forearm pain for the last 2 to 3 weeks. Patient states that he was lifting a heavy open cabinet when he noticed the pain. The pain is been progressive throughout the last couple of weeks. 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 He was seen by his physician in [place] who told him to just monitor this because he had no obvious traumatic injury. He felt no cracks or pops during the injury. The pain has been progressive. Patient been taking Tylenol ibuprofen for pain without relief. Patient denies numbness or tingling. He admits to pain with pronation and supination of the forearm as well as flexion extension of the elbow. [facility] Medical History (Updated 05/18/21 @ 18:37 by Jannie Landry) TTP (thrombotic thrombocytopenic purpura) Home Medications hydroxyzine pamoate 100 mg PO DAILY 02/01/21 [History Last Taken Unknown] lamotrigine 200 mg PO QHS 02/01/21 [History Last Taken Unknown] quetiapine 400 mg PO QHS 02/01/21 [History Last Taken Unknown] naproxen 500 mg PO BID PRN #20 tab 05/18/21 [Rx Last Taken Unknown] Allergy/AdvReac Type Severity Reaction Status Date / Time adhesive Allergy Rash Verified 05/18/21 18:16 dicyclomine HCl [From Bentyl] Allergy Hives Verified 05/18/21 18:16 fentanyl Allergy Hives Verified 05/18/21 18:16 Latex, Natural Rubber Allergy Rash Verified 05/18/21 18:16 methadone Allergy Other Verified 05/18/21 18:16 morphine Allergy Swelling Verified 05/18/21 18:16 prednisone Allergy Rash Verified 05/18/21 18:16 tramadol HCl [From Ultram] Allergy Hives Verified 05/18/21 18:16 aspirin AdvReac Other Verified 05/18/21 18:16 ketorolac tromethamine AdvReac Upset Verified 05/18/21 18:16 [From Toradol] Stomach Social History Smoking Status: Current every day smoker tobacco type: cigarettes ROS ROS ED Constitutional Constitutional ED: Denies chills, fever(s) or sweats Eyes Eyes: Denies blurry vision or change in vision ENT ENT ED: Denies ear pain, rhinorrhea or sore throat Cardiovascular Cardiovascular: Denies chest pain, palpitations or racing heartbeat Respiratory/Chest Respiratory/Chest: Denies cough, dyspnea or sputum Gastrointestinal Gastrointestinal: Denies abdominal pain, constipation, diarrhea or vomiting Genitourinary Genitourinary ED: Denies dysuria, hematuria or urinary frequency Musculoskeletal Musculoskeletal: Reports other Details: Right elbow and forearm pain ; Denies arthralgias Integumentary Denies abscess, Abrasions or rash Neurologic Neurologic: Denies headache(s), paresthesias or weakness Psychiatric Psychiatric: Denies anxiety, depression, suicidal ideation or suicidal thoughts Endocrine Endocrinology: Denies polydipsia or polyuria EXAM Physical Exam Const Vital Signs: 05/18/21 18:14 Temperature 97.6 F L Temperature Source Temporal Pulse Rate 104 H Respiratory Rate 18 Blood Pressure 140/86 H Blood Pressure Mean 104 Pulse Ox 97 Positive well nourished General Appearance ED: NAD HEENT normocephalic and atraumatic Eyes PERRL and EOMs intact bilaterally Extremity Extremity Narrative: Tenderness to palpation over the right elbow and right forearm. No crepitance. No deformity. Patient has full range of motion with pain elicited with motion. Right radial pulses 2+. Right hand neurovascular intact brisk cap refill to all 5 fingers. 5/5 motor strength in the right upper extremity, forearm, hand. No sensory deficits. Compartments are soft. Neuro oriented x3 Sensorium / Orientation: alert Psych mental status grossly normal Skin Lesions: no lesions Rashes: no rashes MDM MDM MDM Narrative Medical decision making narrative: Patient presenting with a couple of weeks of right elbow and forearm pain. Patient states this happened after lifting a heavy object. Patient's right elbow and right forearm x-rays on my interpretation shows no acute fracture or subluxation. His physical exam is only significant for some mild tenderness. His compartments are soft. He is neurovascular intact throughout the right upper extremity, forearm, hand. Patient given Naprosyn in the ED. He is counseled that if he continues has problems he should follow-up with orthopedics he was given a follow-up referral. Patient stable for discharge at this time. Impression: 1. Left elbow sprain Discharge Plan Triage Chief Complaint: Upper Extremity Injury ED Provider: Markell Mcconnell Dx/Rx/DC Orders Instructions: ED Sprain, Elbow Prescriptions: New naproxen 500 mg tablet 500 mg PO BID PRN (Reason: pain) Qty: 20 RF: 0 No Action hydroxyzine pamoate 100 MG capsule 100 mg PO DAILY RF: 0 lamotrigine 200 MG tablet 200 mg PO QHS RF: 0 quetiapine 400 MG tablet extended release 24 hr 400 mg PO QHS RF: 0 Referrals: JASS RUTHERFORD [Other] Jean Marie Kumar DO [STAFF PHYSICIAN] - As Needed Disposition Disposition: Home, Self Care
--- NOTE | 2021-05-18 18:35 | RAD_ITS ---
HISTORY: elbow pain COMPARISON: None FINDINGS: # of images incl. paperwork: 3 XR Elbow Min 3 Views: 3 views SOFT TISSUES: There is no displacement of the anterior or posterior fat pads. No radiopaque foreign body. BONES: No acute fracture or subluxation. JOINTS: Preservation of the joint spaces. RAD/Elbow min 3 Views IMPRESSION: No acute bony injury. at 1924 Reported and signed by: Georges Frey MD Electronically Signed: Georges Frey MD at 19:23 EDT Tel , Service support ,
[2021-05-18] MEDS: Naproxen 500 MG Tablet PO (18:49)
[2021-05-18 20:04] VITALS: RESP 18
== END 2021-05-18 20:04 | disposition home or self-care (01) ==
PROVIDERS: Emergency Provider Student in an Organized Health Care Education/Training Program
DX: S53.402A Unspecified sprain of left elbow, initial encounter (principal); F17.210 Nicotine dependence, cigarettes, uncomplicated; X58.XXXA Exposure to other specified factors, initial encounter
CPT/HCPCS: 73080; 73090; 99283

== ENCOUNTER 2021-06-16 17:19 | Inpatient (IN) | payer MEDICAID, SELFPAY ==
[2021-06-16] VITALS (9 sets, daily range): BP systolic 125–148; BP diastolic 66–103; PULSE 78–98; RESP 14–20; TEMP 36.3–36.9; O2SAT 96–98; BMI 41.3; BMI 42.5
--- NOTE | 2021-06-16 18:14 | EDS_ITS ---
HPI History of Present Illness Chief Complaint: Cough Detail of Chief Complaint: Blurred vision for 3 days. Increased urination. Onset/Context/Timing Onset: Days Context: Gradual Onset Timing: Continuous Current Severity: Mild Maximum Severity: Mild Narrative Narrative: 41-year-old male history of TTP for which he is treated [facility]. States the last 3 days has had blurred vision. Says both eyes. He denies any headache or trauma. Also states he has had increased urination. Denies any history of diabetes but his mom is diabetic. Denies any dysuria hematuria. Recently was seen and treated at a [facility] emergency department which she had a negative ultrasound for DVT tells me. He denies any nausea, vomiting, diarrhea. Prior similar symptoms: No Recent Illness/Hospitalization: No PFSH PFSH Medical History TTP (thrombotic thrombocytopenic purpura) Home Medications lamotrigine 200 mg PO QHS 02/01/21 [History Last Taken Unknown] quetiapine 400 mg PO QHS 02/01/21 [History Last Taken Unknown] Allergy/AdvReac Type Severity Reaction Status Date / Time adhesive Allergy Rash Verified 06/16/21 17:20 dicyclomine HCl [From Bentyl] Allergy Hives Verified 06/16/21 17:20 fentanyl Allergy Hives Verified 06/16/21 17:20 Latex, Natural Rubber Allergy Rash Verified 06/16/21 17:20 methadone Allergy Other Verified 06/16/21 17:20 morphine Allergy Swelling Verified 06/16/21 17:20 prednisone Allergy Rash Verified 06/16/21 17:20 tramadol HCl [From Ultram] Allergy Hives Verified 06/16/21 17:20 aspirin AdvReac Other Verified 06/16/21 17:20 ketorolac tromethamine AdvReac Upset Verified 06/16/21 17:20 [From Toradol] Stomach Social History Smoking Status: Current every day smoker tobacco type: cigarettes ROS ROS ED ROS Narrative Blurred vision. Increased urination. Review of Systems ROS Unobtainable: Denies due to encephalopathy Constitutional Constitutional ED: Denies chills or fever(s) Eyes Eyes: Reports blurry vision and change in vision ENT ENT ED: Reports sore throat; Denies ear pain Cardiovascular Cardiovascular: Denies chest pain or palpitations Respiratory/Chest Respiratory/Chest: Reports cough; Denies dyspnea Gastrointestinal Gastrointestinal: Denies abdominal pain, diarrhea, nausea or vomiting Genitourinary Genitourinary ED: Denies dysuria or hematuria Musculoskeletal Musculoskeletal: Denies myalgias Integumentary Denies rash Neurologic Neurologic: Denies headache(s) Psychiatric Psychiatric: Denies depression Endocrine Endocrinology: Denies polyuria Allergic/Immunologic Allergic/Immunologic ED: Denies urticaria EXAM Physical Exam Narrative Exam Narrative: Middle-age male no acute distress vital signs stable afebrile. Initial blood pressure 125/103. He does not look septic toxic no distress. He is lying in bed calmly. HEENT exam dry reactive light his motions are intact. No facial droop. Moist remembers. Neck nontender no lymphadenopathy. Lungs clear to auscultation bilaterally. Heart regular rate and rhythm no murmur rate about 95. Abdomen soft nontender normal bowel sounds no peritoneal signs. Patient moving all 4 extremities. Neurovascular intact. Normal strength. No edema. Neurologically is awake alert with no focal motor deficits. No slurred speech. No facial droop. Const Vital Signs: 06/16/21 17:21 06/16/21 18:03 06/16/21 19:41 Temperature 97.3 F L Temperature Source Temporal Pulse Rate 98 Respiratory Rate 17 14 Respiratory Effort Short of Breath Labored Respiratory Pattern Normal Blood Pressure 125/103 H Blood Pressure Mean 110 Pulse Ox 96 Oxygen Delivery Method Room Air Room Air Positive well nourished and well developed; Negative for cachectic, contractures or unkempt General Appearance ED: well developed and NAD; Negative for unkempt, cachectic or contractures Nutritional Appearance: Negative for cachectic HEENT Reports moist mucous membranes Negative for trauma or tenderness Eyes PERRL and EOMs intact bilaterally General Eye ED: Negative for pale conjunctiva or scleral icterus Neck no lymphadenopathy, supple and no JVD General: Negative for tenderness Chest Wall inspection of chest normal and palpation of chest normal Resp normal respiratory effort and clear to auscultation bilaterally Effort and Inspection: Negative for pain with movement Auscultation: Negative for rales, rhonchi or wheezes Cardio regular rate, regular rhythm, S1 normal heart sound, S2 normal heart sound and no murmurs GI normal to inspection, nondistended, normoactive bowel sounds, non-tender, non- distended and no masses Auscultation: normoactive bowel sounds Palpation: soft; Negative for tender, guarding or rebound tenderness present Back/Spine no CVA tenderness Extremity normal to inspection General Extremety ED: Negative for edema or tenderness General Extremity: Negative for edema Neuro oriented x3 and CN's II-XII intact bilaterally Sensorium / Orientation: alert; Negative for orientation impaired, lethargic or stuporous Motor Exam: strength 5/5 throughout Psych mental status grossly normal Appearance: Negative for unkempt Mood & Affect: Negative for depressed or tearful Skin no rashes or lesions noted and no wounds MDM MDM MDM Narrative Medical decision making narrative: 41-year-old male with blurry vision and increased urination. Exam unremarkable. Clinically think is his new onset diabetes. They got a BG T which is reading greater than 500. Screening labs will be obtained. He will be treated with IV fluids. Repeat exam at 815 unchanged. I went over test results the patient will be admitted to bring his blood sugar down. Also for diabetic counseling. And to rule out DKA. Patient be given a second liter normal saline. Will be started on insulin drip to bring down his blood sugar. He still could be early DKA without the anion gap. Lab Data Attestation: I reviewed the patient's lab results. Lab results narrative: CBC shows a white count 1.5. Hemoglobin 16. BGT is greater than 500. Chemistry shows sodium of 128 gap of 14 creatinine of 1.1. Glucose is 787. Small amount of ketones. Labs: Laboratory Results - last 24 hr 06/16/21 06/16/21 06/16/21 18:16 18:30 18:30 WBC 11.5 H RBC 5.33 Hgb 16.3 Hct 45.8 MCV 85.9 MCH 30.6 MCHC 35.6 RDW Std Deviation 38.2 RDW Coeff of Serafin 12.3 Plt Count 308 MPV 10.6 Immature Gran % (Auto) 0.400 Neut % (Auto) 71.4 H Lymph % (Auto) 17.2 L [place] % (Auto) 7.0 Eos % (Auto) 3.0 Baso % (Auto) 1.0 Absolute Neuts (auto) 8.2 H Absolute Lymphs (auto) 1.98 Nucleated RBC % 0 Sodium 120 L Potassium 4.4 Chloride 84 L Carbon Dioxide 22.0 Anion Gap 14 BUN 25 H Creatinine 1.14 Estim Creat Clear Calc 86.14 Est GFR (MDRD) Af Amer 91 Est GFR (MDRD) Non-Af 76 BUN/Creatinine Ratio 21.9 H Glucose 787 H* Calcium 9.1 Acetone Level POC Glucose > 500 H* 06/16/21 18:30 WBC RBC Hgb Hct MCV MCH MCHC RDW Std Deviation RDW Coeff of Serafin Plt Count MPV Immature Gran % (Auto) Neut % (Auto) Lymph % (Auto) [place] % (Auto) Eos % (Auto) Baso % (Auto) Absolute Neuts (auto) Absolute Lymphs (auto) Nucleated RBC % Sodium Potassium Chloride Carbon Dioxide Anion Gap BUN Creatinine Estim Creat Clear Calc Est GFR (MDRD) Af Amer Est GFR (MDRD) Non-Af BUN/Creatinine Ratio Glucose Calcium Acetone Level SMALL H POC Glucose Critical Care Time Critical Care Time: Yes Critical care time (excluding procedures): 30-74 minutes, Discussing w/Patient &/or Family/Mortgage Loan Officer, Discussing w/Consultants, Arranging Admission or Transfer, Performing Direct Patient Care at Bedside and - (32 min) Discharge Plan Dx/Rx/DC Orders Clinical Impression: Diabetes mellitus, new onset, Acute hyperglycemia Disposition Disposition: Acute Care Hospital [facility]
[2021-06-16 18:21] LABS: Bedside Glucose > 500 mg/dL (70-110)
[2021-06-16] MEDS: 0.9% Normal Saline 1,000 ML 1000 ML IV (18:30)
[2021-06-16 18:46] LABS: Absolute Lymphocyte Count 1.98 X10^3/uL (0.83-4.51); Absolute Neutrophil Count 8.2 X10^3/uL (2.0-7.7); Basophil# 0.11 X10^3/uL; Eosinophil# 0.35 X10^3/uL; Hematocrit 45.8 % (40-54); Hemoglobin 16.3 g/dL (13.0-16.5); Lymphocyte # 1.98 X10^3/ul (0.83-4.51); Lymphocyte % 17.2 % (19-41); Mean Corp Hgb Conc 35.6 g/dL (32-36); Mean Corpuscular Hgb 30.6 pg (27.0-32.0); Mean Corpuscular Volume 85.9 fL (80-94); Mean Platelet Vol. 10.6 fl (6.2-12.0); NRBC Flagged by Analyzer 0 % (0-5); Neutrophil # 8.19 X10^3/uL (2.7-7.7); Neutrophil % 71.4 % (47-70); Platelet Count 308 K/mm3 (150-450); RBC Distribution Width CV 12.3 % (11.6-14.6); RBC Distribution Width SD 38.2 fl (35.1-43.9); Red Blood Count 5.33 M/mm3 (4.6-6.2); White Blood Count 11.5 K/mm3 (4.4-11.0)
[2021-06-16 19:41] LABS: Anion Gap 14 (5-15); BUN 25 mg/dL (7-18); BUN/Creat Ratio 21.9 RATIO (10-20); Calcium,Total 9.1 mg/dL (8.5-10.1); Chloride 84 mmol/L (98-107); Creatinine, Serum 1.14 mg/dL (0.70-1.30); EST Glomerular Filtration Rate 76 mL/min (>60); Est Glom Filt Rate - Afr Amer 91 mL/min (>60); Estimated Creatinine Clearance 86.14 ml/min; Glucose 787 mg/dL (74-106); Potassium 4.4 mmol/L (3.5-5.1); Sodium Level 120 mmol/L (136-145)
[2021-06-16 20:31] LABS: Bedside Glucose > 500 mg/dL (70-110)
--- NOTE | 2021-06-16 20:41 | HP.PCM.HOS_ITS ---
HPI - General General Date of Admission: 06/16/21 HPI Narrative JAIRO ADKINS, is a 41 M with a significant history of bipolar disorder and TTP with who presents with blurry vision. He reported his blurry vision has been persistent. Associated with symptoms is increased urinary frequency; polyuria and polydipsia. [facility] Medical History TTP (thrombotic thrombocytopenic purpura) Home Medications lamotrigine 200 mg PO QHS 02/01/21 [History Last Taken Unknown] quetiapine 400 mg PO QHS 02/01/21 [History Last Taken Unknown] Allergy/AdvReac Type Severity Reaction Status Date / Time adhesive Allergy Rash Verified 06/16/21 17:20 dicyclomine HCl [From Bentyl] Allergy Hives Verified 06/16/21 17:20 fentanyl Allergy Hives Verified 06/16/21 17:20 Latex, Natural Rubber Allergy Rash Verified 06/16/21 17:20 methadone Allergy Other Verified 06/16/21 17:20 morphine Allergy Swelling Verified 06/16/21 17:20 prednisone Allergy Rash Verified 06/16/21 17:20 tramadol HCl [From Ultram] Allergy Hives Verified 06/16/21 17:20 aspirin AdvReac Other Verified 06/16/21 17:20 ketorolac tromethamine AdvReac Upset Verified 06/16/21 17:20 [From Toradol] Stomach Family History Other Diabetes Surgical History H/O eye surgery Social History Smoking Status: Current every day smoker tobacco type: cigarettes ROS ROS Narrative Constitutional: Denies anorexia and change in weight Eyes: Reports blurry vision. Denies change in eye color, discharge from eye(s), erythema, eye pain, or other HEENT: Denies abnormal hearing, dysphagia, ear pain, epistaxis, headache(s), hearing loss, nasal congestion, nasal discharge, post nasal drip, sinus pressur e, sore throat or other Cardiovascular: Denies chest pain. Denies dyspnea on exertion, orthopnea and paroxysmal nocturnal dyspnea Respiratory/Chest: Denies cough, excessive phlegm production, shortness of breath with exertion and wheezing Gastrointestinal: Denies abdominal pain, coffee ground emesis, constipation, diarrhea, dyspepsia, hematemesis, hematochezia, loose stools, melena, nausea, vomiting or other Genitourinary: Reports increasing urinary frequency. Denies burning urination, difficulty urinating, dysuria, hematuria, urinary hesitancy, urinary incontinence, urinary urgency or other Musculoskeletal: Denies arthralgias, back pain, joint pain, joint stiffness, joint swelling, myalgias, neck pain or other Neurologic: Denies abnormal gait, abnormal speech, confusion, disequilibrium, dizziness, focal weakness, headache(s), numbness, paresthesias, seizure-like activity, seizures, syncope, tingling, tremor(s) or other Psychiatric: Denies anxiety, depression, homicidal ideation, suicidal ideation or other Endocrinology: Reports polyuria and polydipsia. Denies change in body appearance, cold intolerance, excessive sweating, heat intolerance, or other Hematologic/Lymphatic: Denies anemia, easy bleeding, easy bruising, lymphadenopathy or other Integumentary: Denies rashes Allergic/Immunologic: Denies rhinitis, hives, eczema, asthma or other Vital Signs Vital Signs Vital Signs: 06/16/21 17:21 06/16/21 18:03 06/16/21 19:41 Temperature 97.3 F L Temperature Source Temporal Pulse Rate 98 Respiratory Rate 17 14 Respiratory Effort Short of Breath Labored Respiratory Pattern Normal Blood Pressure 125/103 H Blood Pressure Mean 110 Pulse Ox 96 Oxygen Delivery Method Room Air Room Air Weight Weight: 127.006 kg Body Mass Index (BMI) 41.3 Physical Exam Narrative Physical exam: General: Well-nourished, well-developed. Head: Normocephalic, atraumatic, no tenderness Eyes: PERRLA, EOMI ENT, no trauma, moist mucous membranes, no rhinorrhea Neck: Nontender, full range of motion, no spinal tenderness, deformities, step- off CVS: Regular rate and rhythm. S1-S2 present. No murmur, gallop or rub. Respiratory : Diminished lung sounds; chest wall nontender, no wheezing Abdomen: Soft, nontender, nondistended, normal bowel sounds, no masses : Deferred Back: Nontender, no CVA tenderness, no midline spinal tenderness, deformities, step-offs Extremities: Nontender full range of motion, no trauma Skin: Normal color, no trauma, abrasions Neuro: Alert, oriented, cranial nerves II through XII grossly intact. Psychiatry: Normal mood. Normal affect. Not depressed. Not anxious. Results Lab / Micro Data Result Diagrams: 06/16/21 18:30 06/16/21 18:30 Labs: Laboratory Results - last 24 hr 06/16/21 18:16: POC Glucose > 500 H* 06/16/21 18:30: WBC 11.5 H, RBC 5.33, Hgb 16.3, Hct 45.8, MCV 85.9, MCH 30.6, MCHC 35.6, RDW Std Deviation 38.2, RDW Coeff of Serafin 12.3, Plt Count 308, MPV 10 .6, Immature Gran % (Auto) 0.400, Neut % (Auto) 71.4 H, Lymph % (Auto) 17.2 L, [place] % (Auto) 7.0, Eos % (Auto) 3.0, Baso % (Auto) 1.0, Absolute Neuts (auto) 8.2 H, Absolute Lymphs (auto) 1.98, Nucleated RBC % 0 06/16/21 18:30: Sodium 120 L, Potassium 4.4, Chloride 84 L, Carbon Dioxide 22.0, Anion Gap 14, BUN 25 H, Creatinine 1.14, Estim Creat Clear Calc 86.14, Est GFR (MDRD) Af Amer 91, Est GFR (MDRD) Non-Af 76, BUN/Creatinine Ratio 21.9 H, Glucose 787 H*, Calcium 9.1 06/16/21 18:30: Acetone Level SMALL H 06/16/21 20:22: POC Glucose > 500 H* Micro: Microbiology 06/16/21 18:55 Nasal Secretion SARS-CoV-2 Antigen (Rapid) - Final Assessment & Plan Assessment/Plan (1) Diabetes mellitus, new onset: (2) Acute hyperglycemia: PLAN: New onset diabetes mellitus with acute hyperglycemia. Patient with polyuria and polydipsia. Suspect polyphagia as a patient had a sandwich at the emergency department and also had a chocolate drink. Initial fingerstick blood sugar was more than 500. Blood glucose on BMP 787. acetone level small Anion gap of 14. Bicarbonate of 22. Sodium 120, . Corrected sodium 131 Likely early DKA. Insulin drip started from emergency department; continue Normal saline bolus was given the emergency department. Normal saline IV hydration continued. IV potassium ordered. BMP every 4 hours to calculate anion gap. N.p.o. for now except meds with sips Admitted to ICU A1c and pH ordered. Dietitian consult. Leukocytosis Review of ED labs showed mild leukocytosis of 11.5 likely reactive from acute hyperglycemia. Trend CBC Bipolar disorder Lamictal, quetiapine and buspirone continued Tobacco abuse Counseled Reports allergy to adhesive and cannot take nicotine patch. DVT prophylaxis: With history of TTP no chemical prophylaxis ordered. SCD ordered. Charges/Coding Visit Charges Inpatient E&M: 28565 Init Hosp L3
[2021-06-16] MEDS: 0.9% Normal Saline 1,000 ML 999 ML IV (20:44)
[2021-06-16 21:16] LABS: Allen Test Positive; Base Excess -4 mmol/L (-2 to +2); Bicarbonate 21.5 mmol/L (22-26); Blood Gas Specimen Type ART; O2 Delivery Device Room Air; PO2 70 mmHG (75-100); SITE R Radial; SO2 94 % (95-99); Total Carbon Dioxide 23 mmol/L; pCO2 35.5 mmHg (35-45); pH 7.39 (7.35-7.45)
--- NOTE | 2021-06-16 21:17 | NURSING ---
Called and got quote from Don to [facility] and it is a $9-10 taxi ride for his to get home from work. He states they do not have that right now and she cannot get a ride. SW is talking to him now.
[2021-06-16 21:20] LABS: Osmolality, Serum 319 mOsm/KG (275-295)
--- NOTE | 2021-06-16 21:30 | CM.ED ---
SOCIAL WORK Reason for Consult: Resources Referral Source: Nursing Met with patient in room. Patient to be admitted and reports he is the only person with a license in the family. Patient states and son are at work and need to be picked up at 11p. Nurse called and obtained cost for taxi- $9-10. Patient states they do not have the money for that as it is the 1st of the month and all bills have been paid. Discussed options of co-workers or family/friends. Patient to discuss with . Plan: Admit Elida Tay, CENTRAL SUPPLY AIDE, OFFICE MACHINE INSPECTOR
[2021-06-16 21:41] LABS: Bedside Glucose > 500 mg/dL (70-110)
[2021-06-16 22:36] LABS: Bedside Glucose 381 mg/dL (70-110)
--- NOTE | 2021-06-16 22:53 | ED.RN ---
Report called to Danny Dow in ICU
[2021-06-16] MEDS: 0.9% Normal Saline 1,000 ML 500 ML IV (23:25)
[2021-06-17] VITALS (20 sets, daily range): BP systolic 135–168; BP diastolic 90–112; PULSE 66–95; RESP 13–23; TEMP 36.6–37.1; O2SAT 94–99
[2021-06-17 00:03] LABS: Anion Gap 7 (5-15); BUN 18 mg/dL (7-18); BUN/Creat Ratio 19.8 RATIO (10-20); Calcium,Total 8.9 mg/dL (8.5-10.1); Chloride 99 mmol/L (98-107); Creatinine, Serum 0.91 mg/dL (0.70-1.30); EST Glomerular Filtration Rate 98 mL/min (>60); Est Glom Filt Rate - Afr Amer 119 mL/min (>60); Estimated Creatinine Clearance 107.91 ml/min; Glucose 331 mg/dL (74-106); Potassium 3.7 mmol/L (3.5-5.1); Sodium Level 131 mmol/L (136-145)
[2021-06-17] MEDS: Potassium Chloride 10mEq/100mL 10 MEQ/100 ML IV.SOLN. 100 MEQ IV BOLUS ×4 (00:14→03:39)
[2021-06-17] MEDS: lamoTRIgine 100 MG Tablet 200 MG PO ×2 (00:15→22:57)
[2021-06-17 00:17] LABS: Hemoglobin A1c 9.7 % (3.8-5.6)
[2021-06-17] MEDS: 0.9% Normal Saline 1,000 ML 250 ML IV (01:29)
[2021-06-17 01:36] LABS: Bedside Glucose 315 mg/dL (70-110)
[2021-06-17 01:36] LABS: Bedside Glucose 318 mg/dL (70-110)
[2021-06-17 02:41] LABS: Bedside Glucose 277 mg/dL (70-110)
[2021-06-17 03:38] LABS: Anion Gap 7 (5-15); BUN 15 mg/dL (7-18); BUN/Creat Ratio 20.1 RATIO (10-20); Calcium,Total 8.1 mg/dL (8.5-10.1); Chloride 102 mmol/L (98-107); Creatinine, Serum 0.75 mg/dL (0.70-1.30); EST Glomerular Filtration Rate 123 mL/min (>60); Est Glom Filt Rate - Afr Amer 149 mL/min (>60); Estimated Creatinine Clearance 130.93 ml/min; Glucose 261 mg/dL (74-106); Potassium 3.7 mmol/L (3.5-5.1); Sodium Level 135 mmol/L (136-145)
[2021-06-17 04:41] LABS: Bedside Glucose 266 mg/dL (70-110)
[2021-06-17 04:59] LABS: Absolute Lymphocyte Count 2.15 X10^3/uL (0.83-4.51); Absolute Neutrophil Count 6.1 X10^3/uL (2.0-7.7); Basophil# 0.07 X10^3/uL; Basophil% 0.7 % (0-1); Eosinophil# 0.76 X10^3/uL; Eosinophils% 7.5 % (0-5); Hematocrit 41.2 % (40-54); Hemoglobin 14.6 g/dL (13.0-16.5); Lymphocyte # 2.15 X10^3/ul (0.83-4.51); Lymphocyte % 21.3 % (19-41); Mean Corp Hgb Conc 35.4 g/dL (32-36); Mean Corpuscular Hgb 30.1 pg (27.0-32.0); Mean Corpuscular Volume 84.9 fL (80-94); Mean Platelet Vol. 9.9 fl (6.2-12.0); Monocyte# 0.99 X10^3/uL; Monocyte% 9.8 % (0-10); NRBC Flagged by Analyzer 0 % (0-5); Neutrophil # 6.11 X10^3/uL (2.7-7.7); Neutrophil % 60.4 % (47-70); Platelet Count 264 K/mm3 (150-450); RBC Distribution Width CV 12.2 % (11.6-14.6); RBC Distribution Width SD 37.5 fl (35.1-43.9); Red Blood Count 4.85 M/mm3 (4.6-6.2); White Blood Count 10.1 K/mm3 (4.4-11.0)
[2021-06-17] MEDS: Dext 5%-0.45% NS 1,000 ML 150 ML IV (05:43)
[2021-06-17 08:10] LABS: Bedside Glucose 220 mg/dL (70-110)
[2021-06-17 08:10] LABS: Bedside Glucose 217 mg/dL (70-110)
[2021-06-17] MEDS: Insulin Lispro 100 UNIT/ML INSULN.PEN 6 UNIT SC ×3 (08:17→16:32)
[2021-06-17] MEDS: Insulin Lispro 100 UNIT/ML INSULN.PEN SC ×4 (08:18→22:54)
[2021-06-17] MEDS: busPIRone 5 MG Tablet PO (08:21)
[2021-06-17 08:30] LABS: Bedside Glucose 341 mg/dL (70-110)
--- NOTE | 2021-06-17 10:15 | CASEMGMT ---
Addendum entered by Rupal Spaulding 06/17/21 14:31: Pt has an appt scheduled w/Dr Whitfield 07/01/21 @ 0745. Addendum entered by Rupal Spaulding 06/17/21 11:33: Script for glucometer obtained from Dr Fang and given to pt at this time. Pt advised to talk to pharmacist where he gets the glucometer for teaching re: how to use machine. Original Note: RN CM [employer] HR DEVELOPER CM to room to meet with patient for initial transition planning/care coordination assessment. RN CM introduced self and role at [facility]. Pt voices understanding and consents to assessment at this time. Pt resting in bed in no distress at this time. Pt is A/O at this time and answers all questions appropriately. Care providers, pharmacy, and demographics verified/updated at this time. PCP: None. Pt states does not want a list of local PCP's, as he only wants to see his final assembly worker for all medical needs. Pt made aware, with new diagnoses of diabetes, that his final assembly worker will most likely want him to f/u w/a PCP, but pt again states he does not want RN CM to even leave a list for him. Specialists: Dr Abdirahman Whitfield @ [facility]--hematology Preferred [facility]acy: [facility] Insurance: [employer] Prescription Benefit: Yes Living Will/HPOA: Pt does not currently have LW/HCPOA and declines info at this time. Pt made aware that he can contact SW as an out-pt and make appt in the future if he decides he would like to talk with someone about this or would like to utilize [facility] social work for advanced directive completion. Given [employer] card with information and contact number. Pt expresses understanding. LNOK: Pt states he has no family. Lives w/significant other, Alycia Johnson. He states she does not have a phone. Living Arrangements: Lives w/Alycia in ground-level apartment w/no steps to enter. Independent. Transportation: Pt states drives self and states no transportation concerns at this time. Alycia does not drive. DME: Denies using any DME. Pt does not have a glucometer. Pt made aware he will need to get a glucometer and that a script will be provided. Pt made aware, if his pharmacy/drug store does not have a glucometer available that is covered under his insurance and/or if it may take a few days for them to order one in, that [facility] does carry a [employer] brand glucometer that is inexpensive, around $20 for glucometer and testing supplies. Pt voices understanding. HHC/SNF: No history of either. No needs identified. Pt wishes to return home and states has no concerns with going home at time of discharge. CM to follow for any discharge planning/needs. Pt voices no concerns/needs at this time. Advised pt to ask for CM if any questions/concerns/needs arise. Voices understanding. PLAN: Home w/discharge plans in place. Pt will need script for glucometer. Nursing to do diabetic and insulin administration teaching. Cindy YANG RN CM
--- NOTE | 2021-06-17 11:12 | PN.HOSP_ITS ---
Subjective Subjective Feels better than when he came in. No issues overnight. Continue with insulin Objective Data Objective Data Vital Signs: Vital Signs Temp Pulse Resp BP Pulse Ox 97.8 F 77 23 H 142/100 H 96 06/17/21 08:00 06/17/21 09:00 06/17/21 09:00 06/17/21 09:00 06/17/21 09:00 Oxygen Delivery Method Room Air Weight: 289 lb 10.998 oz Body Mass Index (BMI) 42.5 Intake & Output: Intake and Output for Last 24 Hours 06/16/21 06/17/21 06/18/21 03:59 03:59 03:59 Intake Total 3342.90 / 3342.90 2070.24 / 2070.24 Output Total 700 / 700 Balance 3342.90 / 3342.90 1370.24 / 1370.24 Lab / Micro Data Result Diagrams: 06/17/21 04:50 06/17/21 02:45 Labs: Laboratory Results - last 24 hr 06/16/21 18:16: POC Glucose > 500 H* 06/16/21 18:30: WBC 11.5 H, RBC 5.33, Hgb 16.3, Hct 45.8, MCV 85.9, MCH 30.6, MCHC 35.6, RDW Std Deviation 38.2, RDW Coeff of Serafin 12.3, Plt Count 308, MPV 10.6, Immature Gran % (Auto) 0.400, Neut % (Auto) 71.4 H, Lymph % (Auto) 17.2 L, [place] % (Auto) 7.0, Eos % (Auto) 3.0, Baso % (Auto) 1.0, Absolute Neuts (auto) 8.2 H, Absolute Lymphs (auto) 1.98, Nucleated RBC % 0 06/16/21 18:30: Sodium 120 L, Potassium 4.4, Chloride 84 L, Carbon Dioxide 22.0, Anion Gap 14, BUN 25 H, Creatinine 1.14, Estim Creat Clear Calc 86.14, Est GFR (MDRD) Af Amer 91, Est GFR (MDRD) Non-Af 76, BUN/Creatinine Ratio 21.9 H, Glucose 787 H*, Calcium 9.1 06/16/21 18:30: Acetone Level SMALL H 06/16/21 18:30: Serum Osmolality 319 H 06/16/21 18:30: Hemoglobin A1c 9.7 H 06/16/21 20:22: POC Glucose > 500 H* 06/16/21 21:35: POC Glucose > 500 H* 06/16/21 22:27: POC Glucose 381 H 06/16/21 23:25: Sodium 131 L, Potassium 3.7, Chloride 99, Carbon Dioxide 25.0, Anion Gap 7, BUN 18, Creatinine 0.91, Estim Creat Clear Calc 107.91, Est GFR (MDRD) Af Amer 119, Est GFR (MDRD) Non-Af 98, BUN/Creatinine Ratio 19.8, Glucose 331 H, Calcium 8.9 06/16/21 23:32: POC Glucose 315 H 06/17/21 00:36: POC Glucose 318 H 06/17/21 01:34: POC Glucose 277 H 06/17/21 02:39: POC Glucose 266 H 06/17/21 02:45: Sodium 135 L, Potassium 3.7, Chloride 102, Carbon Dioxide 26.0, Anion Gap 7, BUN 15, Creatinine 0.75, Estim Creat Clear Calc 130.93, Est GFR (MDRD) Af Amer 149, Est GFR (MDRD) Non-Af 123, BUN/Creatinine Ratio 20.1 H, Glucose 261 H, Calcium 8.1 L 06/17/21 04:46: POC Glucose 217 H 06/17/21 04:50: WBC 10.1, RBC 4.85, Hgb 14.6, Hct 41.2, MCV 84.9, MCH 30.1, MCHC 35.4, RDW Std Deviation 37.5, RDW Coeff of Serafin 12.2, Plt Count 264, MPV 9.9, Immature Gran % (Auto) 0.300, Neut % (Auto) 60.4, Lymph % (Auto) 21.3, [place] % (Auto) 9.8, Eos % (Auto) 7.5 H, Baso % (Auto) 0.7, Absolute Neuts (auto) 6.1, Absolute Lymphs (auto) 2.15, Nucleated RBC % 0 06/17/21 05:40: POC Glucose 220 H 06/17/21 08:10: POC Glucose 341 H Micro: Microbiology 06/16/21 18:55 Nasal Secretion SARS-CoV-2 Antigen (Rapid) - Final ABG Data ABG results: ABG 06/16/21 21:11 Specimen Type ART Sample Site R Radial pH 7.39 Bicarbonate Actual 21.5 L Total CO2 23 Base Excess -4 L O2 Saturation 94 L ABG pCO2 35.5 ABG pO2 70 L [place] Test Positive O2 Delivery Device Room Air Physical Exam Const alert, oriented x3 and no apparent distress General Appearance: cooperative HEENT normocephalic and moist oral mucous membranes Eyes PERRL, EOMs intact bilaterally and conjunctivae normal Neck supple and no JVD Resp normal respiratory effort, no retractions, no use of accessory muscles and clear to auscultation bilaterally Auscultation: Negative for crackles, rales, rhonchi or wheezes Cardio regular rate, regular rhythm, S1 normal heart sound, S2 normal heart sound and no murmurs GI soft to palpation, non-tender and non-distended; Negative for hepatosplenomegaly Extremity no clubbing, cyanosis or edema Skin no rashes or lesions noted Neuro no focal motor deficits and no sensory deficits noted Psych affect normal Appearance: appropriate Assessment & Plan Assessment/Plan (1) Diabetes mellitus, new onset: (2) Acute hyperglycemia: PLAN: 1. New onset type 2 diabetes with acute hyperglycemia -Is off the insulin drip, continue with long-acting insulin and mealtime insulin as well as sliding scale -We will make adjustments as necessary -We will add Metformin -Continue with IV fluids and slowly reintroduce his diet -Blood sugars today are down into the 200s -Offered dietary consult to instruct him on his dietary requirements given his diabetes -He states he has a follow-up appoint with his PCP on 07/01/2021 2. Bipolar disorder -Stable -Continue with Lamictal and Seroquel 3. Hypertension -I advised him that this needs to be addressed as an outpatient once he is stabl e with his diabetes. Concern is that starting him on insulin as well as Metformin and then his blood pressure will lead to noncompliance -Would recommend that in a few weeks be started on lisinopril DVT: SCDs Charges/Coding Visit Charges Inpatient E&M: 49405 Subs Hosp L2
[2021-06-17 11:15] LABS: Bedside Glucose 401 mg/dL (70-110)
--- NOTE | 2021-06-17 12:14 | CASEMGMT ---
SW met w/pt briefly, offered to assist pt in completing LW/POA. Pt does not feel up for it today. SW gave pt this SW's number to call should he want to complete them tomorrow or at a later date. Pt had indicated he would want his significant other to be his POA. SW explained that without the document, if we have no family to call, a guardian would be needed at that point. Pt states understanding. SW gave pt the blank forms w/this SW's number. SW remains available should pt want to complete the forms. FEDE Larson
[2021-06-17] MEDS: metFORMIN (XR) 500 MG Tablet PO (16:32)
[2021-06-17 16:41] LABS: Bedside Glucose 364 mg/dL (70-110)
[2021-06-17] MEDS: MELATONIN 3 MG TABLET PO (23:01)
[2021-06-17 23:05] LABS: Bedside Glucose 435 mg/dL (70-110)
--- NOTE | 2021-06-17 23:23 | PCS.PANDOC ---
PANDEMIC DOCUMENTATION INITIATED: Date: 05/31/2021 Time: 190
[2021-06-18] MEDS: guaiFENesin 10 ML UDC (200MG/10ML) PO ×3 (02:03→21:44)
[2021-06-18 02:07] VITALS: BP 146/98; PULSE 88; RESP 17; TEMP 36.8; O2SAT 98
[2021-06-18 05:46] LABS: Absolute Lymphocyte Count 1.95 X10^3/uL (0.83-4.51); Absolute Neutrophil Count 5.5 X10^3/uL (2.0-7.7); Basophil# 0.11 X10^3/uL; Basophil% 1.2 % (0-1); Eosinophil# 0.62 X10^3/uL; Hemoglobin 16.1 g/dL (13.0-16.5); Lymphocyte # 1.95 X10^3/ul (0.83-4.51); Lymphocyte % 21.9 % (19-41); Mean Corp Hgb Conc 35.8 g/dL (32-36); Mean Corpuscular Hgb 30.7 pg (27.0-32.0); Mean Corpuscular Volume 85.9 fL (80-94); Monocyte% 7.8 % (0-10); NRBC Flagged by Analyzer 0 % (0-5); Neutrophil # 5.49 X10^3/uL (2.7-7.7); Neutrophil % 61.5 % (47-70); Platelet Count 272 K/mm3 (150-450); RBC Distribution Width CV 12.6 % (11.6-14.6); RBC Distribution Width SD 39.5 fl (35.1-43.9); Red Blood Count 5.24 M/mm3 (4.6-6.2); White Blood Count 8.9 K/mm3 (4.4-11.0)
[2021-06-18 06:25] LABS: Anion Gap 11 (5-15); BUN 13 mg/dL (7-18); BUN/Creat Ratio 17.5 RATIO (10-20); Calcium,Total 8.6 mg/dL (8.5-10.1); Chloride 99 mmol/L (98-107); Creatinine, Serum 0.74 mg/dL (0.70-1.30); EST Glomerular Filtration Rate 124 mL/min (>60); Est Glom Filt Rate - Afr Amer 150 mL/min (>60); Glucose 333 mg/dL (74-106); Sodium Level 131 mmol/L (136-145)
[2021-06-18 07:31] LABS: Bedside Glucose 340 mg/dL (70-110)
[2021-06-18 08:20] VITALS: BP 130/85; PULSE 95; RESP 16; TEMP 36.9; O2SAT 99
[2021-06-18] MEDS: Insulin Lispro 100 UNIT/ML INSULN.PEN 6 UNIT SC ×2 (08:22→11:58)
[2021-06-18] MEDS: Insulin Lispro 100 UNIT/ML INSULN.PEN SC ×4 (08:23→21:43)
[2021-06-18] MEDS: busPIRone 5 MG Tablet PO (09:55)
[2021-06-18 11:45] LABS: Bedside Glucose 466 mg/dL (70-110)
--- NOTE | 2021-06-18 13:01 | PN.HOSP_ITS ---
Subjective Subjective Feels better today, no issues overnight. He seems to understand the issues with his blood sugar but his blood sugar still elevated today therefore we will hold off on discharge Objective Data Objective Data Vital Signs: Vital Signs Temp Pulse Resp BP Pulse Ox 98.4 F 95 16 130/85 H 99 06/18/21 08:20 06/18/21 08:20 06/18/21 08:20 06/18/21 08:20 06/18/21 08:20 Oxygen Delivery Method Room Air Weight: 284 lb 8 oz Body Mass Index (BMI) 42.5 Intake & Output: Intake and Output for Last 24 Hours 06/17/21 06/18/21 06/19/21 03:59 03:59 03:59 Intake Total 3342.90 / 3342.90 3861.90 / 3861.90 800 / 800 Output Total 3025 / 3025 Balance 3342.90 / 3342.90 836.90 / 836.90 800 / 800 Lab / Micro Data Result Diagrams: 06/18/21 05:33 06/18/21 05:33 Labs: Laboratory Results - last 24 hr 06/17/21 16:32: POC Glucose 364 H 06/17/21 22:53: POC Glucose 435 H 06/18/21 05:33: WBC 8.9, RBC 5.24, Hgb 16.1, Hct 45.0, MCV 85.9, MCH 30.7, MCHC 35.8, RDW Std Deviation 39.5, RDW Coeff of Serafin 12.6, Plt Count 272, MPV 10.0, Immature Gran % (Auto) 0.600, Neut % (Auto) 61.5, Lymph % (Auto) 21.9, [place] % (Auto) 7.8, Eos % (Auto) 7.0 H, Baso % (Auto) 1.2 H, Absolute Neuts (auto) 5.5, Absolute Lymphs (auto) 1.95, Nucleated RBC % 0 06/18/21 05:33: Sodium 131 L, Potassium 4.0, Chloride 99, Carbon Dioxide 21.0, Anion Gap 11, BUN 13, Creatinine 0.74, Estim Creat Clear Calc 132.70, Est GFR (MDRD) Af Amer 150, Est GFR (MDRD) Non-Af 124, BUN/Creatinine Ratio 17.5, Glucose 333 H, Calcium 8.6 06/18/21 07:25: POC Glucose 340 H 06/18/21 11:41: POC Glucose 466 H* Micro: Microbiology 06/16/21 18:55 Nasal Secretion SARS-CoV-2 Antigen (Rapid) - Final Physical Exam Const alert, oriented x3 and no apparent distress General Appearance: cooperative HEENT normocephalic and moist oral mucous membranes Eyes PERRL, EOMs intact bilaterally and conjunctivae normal Neck supple and no JVD Resp normal respiratory effort, no retractions, no use of accessory muscles and clear to auscultation bilaterally Auscultation: Negative for crackles, rales, rhonchi or wheezes Cardio regular rate, regular rhythm, S1 normal heart sound, S2 normal heart sound and no murmurs GI soft to palpation, non-tender and non-distended; Negative for hepatosplenomegaly Extremity no clubbing, cyanosis or edema Skin no rashes or lesions noted Neuro no focal motor deficits and no sensory deficits noted Psych affect normal Appearance: appropriate Assessment & Plan Assessment/Plan (1) Diabetes mellitus, new onset: (2) Acute hyperglycemia: PLAN: 1. New onset type 2 diabetes with acute hyperglycemia -Is off the insulin drip, continue with long-acting insulin and mealtime insulin as well as sliding scale -We will make adjustments as necessary -We will add Metformin -Continue with IV fluids and slowly reintroduce his diet -Offered dietary consult to instruct him on his dietary requirements given his diabetes -Has only been seeing cook pressure, I did discuss with him the need for PCP and he has agreed to see 1 here locally 2. Bipolar disorder -Stable -Continue with Lamictal and Seroquel 3. Hypertension -I advised him that this needs to be addressed as an outpatient once he is sta ble with his diabetes. Concern is that starting him on insulin as well as Metformin and then his blood pressure will lead to noncompliance -Would recommend that in a few weeks be started on lisinopril DVT: SCDs Charges/Coding Visit Charges Inpatient E&M: 38274 Subs Hosp L2
[2021-06-18] MEDS: Insulin Lispro 100 UNIT/ML INSULN.PEN 10 UNIT SC (17:04)
[2021-06-18] MEDS: metFORMIN (XR) 500 MG Tablet PO (17:05)
[2021-06-18 17:11] LABS: Bedside Glucose 353 mg/dL (70-110)
[2021-06-18 19:30] VITALS: BP 155/93; PULSE 86; RESP 16; TEMP 36.6; O2SAT 93
[2021-06-18] MEDS: MELATONIN 3 MG TABLET PO (21:44)
[2021-06-18] MEDS: lamoTRIgine 100 MG Tablet 200 MG PO (21:44)
[2021-06-18 21:52] LABS: Bedside Glucose 394 mg/dL (70-110)
[2021-06-19 03:11] VITALS: BP 129/82; PULSE 97; RESP 16; TEMP 36.8; O2SAT 93
[2021-06-19] MEDS: Insulin Lispro 100 UNIT/ML INSULN.PEN SC ×2 (07:52→11:55)
[2021-06-19] MEDS: Insulin Lispro 100 UNIT/ML INSULN.PEN 10 UNIT SC ×2 (07:52→11:56)
[2021-06-19 08:21] LABS: Bedside Glucose 357 mg/dL (70-110)
[2021-06-19 09:00] VITALS: BP 129/90; PULSE 78; RESP 16; TEMP 37.1; O2SAT 94
[2021-06-19] MEDS: busPIRone 5 MG Tablet PO (09:00)
[2021-06-19 12:01] LABS: Bedside Glucose 396 mg/dL (70-110)
== END 2021-06-19 13:30 | disposition left against medical advice (07) | DRG 420 ==
LOC: ED 20:19 → ICU 20:44 → MS3 06-17 19:11
PROVIDERS: Admitting Provider Hospitalist; Emergency Provider Emergency Medicine; Visit Provider Family Medicine
DX: E11.65 Type 2 diabetes mellitus with hyperglycemia (principal); Z83.3 Family history of diabetes mellitus; F17.210 Nicotine dependence, cigarettes, uncomplicated; F31.9 Bipolar disorder, unspecified; I10 Essential (primary) hypertension; Z86.2 Personal history of diseases of the blood and blood-forming organs and certain disorders involving the immune mechanism; Z79.899 Other long term (current) drug therapy
CPT/HCPCS: 36415; 36600; 80048; 82009; 82803; 82962; 83036; 83930; 85025; 87426; 97802; 99284; 99406; J7030; A4216; J7799

== ENCOUNTER 2021-09-21 15:12 | Emergency (ER) | payer MEDICAID, SELFPAY ==
[2021-09-21 15:12] VITALS: BP 143/104; PULSE 93; RESP 18; TEMP 35.7; O2SAT 97; BMI 39.6
--- NOTE | 2021-09-21 15:31 | RAD_ITS ---
History: trauma: Right tibia fibula 2 views: Findings: No fracture or subluxation. No joint or soft tissue abnormality. IMPRESSION: Intact right tibia and fibula. at 1602 Reported and signed by: Teto Kang MD Electronically Signed: Teto Kang MD at 16:00 EST Tel , Service support , RAD/Tibia & Fibula 2 Views
--- NOTE | 2021-09-21 15:31 | RAD_ITS ---
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 Bony structures of the ankle are otherwise unremarkable. No joint space narrowing. Soft tissues are normal. IMPRESSION: No acute abnormality. 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 at 1601 Reported and signed by: Teto Kang MD Electronically Signed: Teto Kang MD at 16:00 EST Tel , Service support , RAD/Ankle min 3 Views
--- NOTE | 2021-09-21 19:42 | EDS_ITS ---
HPI History of Present Illness HPI Narrative: Patient presents with right ankle pain that began today. Patient states he fell through his floor of his apartment. Patient states his pain is worse over the posterior aspect of his right heel. Patient describes his pain as sharp. Patient states his pain is worse with ambulation. Patient admits to some mild tingling. Patient denies any weakness. Patient denies any other injuries. Chief Complaint: Lower Extremity Injury Informant: patient Occured/Mechanism Mechanism/Context: Yes fall Onset/Context/Timing Onset: Today Context: Sudden Onset Timing: Continuous Quality of Pain: Sharp Location: Right ankle Worsened by: Ambulation Relieved by: Rest Associated Symptoms Associated Symptoms: Positive for Parasthesia; Negative for Weakness and Loss of Funtion PFSH [facility] Medical History Diabetes TTP (thrombotic thrombocytopenic purpura) Home Medications lamotrigine 200 mg PO QHS 02/01/21 [History Last Taken Unknown] quetiapine 400 mg PO QHS 02/01/21 [History Last Taken Unknown] insulin glargine [Lantus Solostar U-100 Insulin] 30 unit SUBCUT BID #15 ml 06/19/21 [Rx Last Taken Unknown] insulin lispro [Humalog KwikPen Insulin] 10 unit SUBCUT TIDCM #15 ml 06/19/21 [Rx Last Taken Unknown] metformin 500 mg PO BID #60 tab 06/19/21 [Rx Last Taken Unknown] Allergy/AdvReac Type Severity Reaction Status Date / Time adhesive Allergy Rash Verified 09/21/21 15:14 dicyclomine HCl [From Bentyl] Allergy Hives Verified 09/21/21 15:14 fentanyl Allergy Hives Verified 09/21/21 15:14 Latex, Natural Rubber Allergy Rash Verified 09/21/21 15:14 methadone Allergy Other Verified 09/21/21 15:14 morphine Allergy Swelling Verified 09/21/21 15:14 prednisone Allergy Rash Verified 09/21/21 15:14 tramadol HCl [From Ultram] Allergy Hives Verified 09/21/21 15:14 aspirin AdvReac Other Verified 09/21/21 15:14 ketorolac tromethamine AdvReac Upset Verified 09/21/21 15:14 [From Toradol] Stomach Family History Other Diabetes Surgical History H/O eye surgery Social History Smoking Status: Current every day smoker tobacco type: cigarettes ROS ROS ED Constitutional Constitutional ED: Denies chills or fever(s) Eyes Eyes: Denies blurry vision or change in vision ENT ENT ED: Denies rhinorrhea or sore throat Cardiovascular Cardiovascular: Denies chest pain or palpitations Respiratory/Chest Respiratory/Chest: Denies cough or dyspnea Gastrointestinal Gastrointestinal: Denies nausea or vomiting Genitourinary Genitourinary ED: Denies dysuria or hematuria Musculoskeletal Musculoskeletal: Denies back pain or neck pain Integumentary Denies abscess or rash Neurologic Neurologic: Denies headache(s) or weakness Allergic/Immunologic Allergic/Immunologic ED: Denies mouth swelling or urticaria EXAM Physical Exam Const Vital Signs: 09/21/21 15:12 Temperature 96.3 F L Temperature Source Temporal Pulse Rate 93 Respiratory Rate 18 Blood Pressure 143/104 H Blood Pressure Mean 117 Pulse Ox 97 Oxygen Delivery Method Room Air Positive well nourished and well developed General Appearance ED: well developed HEENT Reports moist mucous membranes Neck full ROM Extremity Extremity Narrative: There is tenderness over the posterior aspect of the right ankle. There is good range of motion. There is some mild edema over the posterior and lateral aspect of the right ankle. There is no bony crepitance or step-off. There is no obvious deformity. Perry test was negative. Strength is 5/5 bilaterally. Pedal pulses are equal bilaterally. Sensation was intact to light touch in all digits. There is no tenderness over the proximal fibula or fifth metatarsal. Neuro oriented x3, CN's II-XII intact bilaterally, moves all extremities and no sensory deficits noted Sensorium / Orientation: alert Motor Exam: strength 5/5 throughout Psych mental status grossly normal MDM MDM MDM Narrative Medical decision making narrative: X-rays of the right tibia and fibula were obtained. There are 3 views noted. On my interpretation, there is no acute fracture or dislocation. There is no soft tissue swelling. Radiologist also interpreted the x-rays and agrees. X-rays of the right ankle were obtained. There are 3 views. On my interpretation, there is no acute fracture. There is no dislocation. There is no soft tissue swelling. Radiologist also interpreted the x-rays and agrees. Patient was advised of his findings. Patient was instructed to ice and elevate the right ankle. Patient was given an Aircast. Patient was instructed to follow-up with his primary care physician in 5 to 7 days. Patient was instructed to take Tylenol or ibuprofen as needed for pain. Patient understands and is agreeable with the plan. All questions were answered. Radiography Diagnostic Testing: Clinical Impression(s) from Imaging Studies Ankle X-Ray 09/21/21 15:31 Tibia/Fibula X-Ray 09/21/21 15:31 Discharge Plan Triage Chief Complaint: Lower Extremity Injury ED Provider: Eliecer Cortez Dx/Rx/DC Orders Clinical Impression: Sprain of ankle, right Instructions: ED Ankle Sprain (Adult) Prescriptions: No Action lamotrigine 200 MG tablet 200 mg PO QHS RF: 0 quetiapine 400 MG tablet extended release 24 hr 400 mg PO QHS RF: 0 metformin 500 mg Tablet Extended Release 24 Hr 500 mg PO BID Qty: 60 RF: 0 insulin lispro [Humalog KwikPen Insulin] 100 unit/mL Insulin Pen 10 unit subcut TIDCM Qty: 15 RF: 0 Lantus Solostar U-100 Insulin 100 unit/mL (3 mL) Insulin Pen 30 unit subcut BID Qty: 15 RF: 0 Primary Care Provider: Care Physician,No Primary Referrals: Care Physician,No Primary [Primary Care Provider] - 3-5 Days Disposition Disposition: Home, Self Care
--- NOTE | 2021-09-21 19:50 | ED.RN ---
PT has been very rude to staff members, demanding discharge paperwork that has not been completed by MD. Several staff members have updated PT on POC and educated PT on process.
--- NOTE | 2021-09-21 19:59 | ED.RN ---
PT requesting a note that states he was injured because he fell through the floor so he can give it to his landlord. RN approached MD for note, unable to find MD as he was with other patients, and when this RN returned, PT was not in his room. PT refused to sign paperwork for billing of ankle splint. PT refused discharge vital signs.
== END 2021-09-21 20:01 | disposition home or self-care (01) ==
PROVIDERS: Emergency Provider Emergency Medicine
DX: S93.401A Sprain of unspecified ligament of right ankle, initial encounter (principal); F17.210 Nicotine dependence, cigarettes, uncomplicated; E11.9 Type 2 diabetes mellitus without complications; Z79.84 Long term (current) use of oral hypoglycemic drugs; Z79.4 Long term (current) use of insulin; Z79.899 Other long term (current) drug therapy; W17.89XA Other fall from one level to another, initial encounter
CPT/HCPCS: 73590; 73610; 99283

== ENCOUNTER → 2021-09-29 15:33 | Outpatient (CLI) | payer MEDICAID, SELFPAY ==
--- NOTE | 2021-09-29 16:00 | RAD_ITS ---
STUDY: X-RAY - RIGHT FOOT CLINICAL: Male, 41 years old. R FOOT PAIN TECHNIQUE: 3 view(s) of the foot. COMPARISON: None. FINDINGS: Normal talus, calcaneus, and tarsal bones. Normal visualized subtalar, talonavicular, calcaneocuboid, tarsal and tarsometatarsal articulations. Normal metatarsi. Normal metatarsophalangeal joint of the great toe. Normal tibial and fibular sesamoid bones. Normal interphalangeal joint of the great toe. Normal phalanges of the great toe. Normal second through fifth metatarsophalangeal joints. Normal interphalangeal joints and phalanges of the lesser toes. The soft tissue structures are unremarkable. RAD/Foot 2 Views IMPRESSION: Normal x-ray examination of the foot. Electronically Signed: Hunter Mitchell MD at 16:44 EST , Service support ,
== END ==
DX: M79.671 Pain in right foot (principal)
CPT/HCPCS: 73620

== ENCOUNTER 2021-09-30 15:25 | Emergency (ER) | payer MEDICAID, SELFPAY ==
[2021-09-30 15:26] VITALS: BP 123/73; PULSE 97; RESP 18; TEMP 36.4; O2SAT 95; BMI 42.8
--- NOTE | 2021-09-30 16:20 | CT_ITS ---
EXAM: CT SPINE - CERVICAL WITHOUT IV REASON FOR EXAM: Male, 41 years old. NECK PAIN neck pain Individualized dose optimization techniques were used for this CT. TECHNIQUE: Multiplanar images were obtained of the cervical spine. IV contrast was not utilized. COMPARISON: None. FINDINGS: The vertebral bodies do maintain their height. The odontoid process is intact. There is no anterolisthesis or fracture. No pre-vertebral soft tissue swelling is seen. The intravertebral disc height is lost at C5-6. There is endplate spondylosis of the vertebral body at C5-6. There is mild straightening of the normal cervical lordosis. This can suggest neck strain. CT/Spine Cervical without Contras IMPRESSION: Degenerative changes of the cervical spine at C5-6. There is mild straightening of the normal cervical lordosis. This can suggest neck strain. Electronically Signed: Jose Rafael Leyva MD at 16:44 EST , Service support ,
--- NOTE | 2021-09-30 16:20 | CT_ITS ---
STUDY: CT BRAIN WITHOUT CONTRAST REASON FOR EXAM: Male, 41 years old. Neck pain syncope TECHNIQUE: Transaxial CT imaging of the brain was performed without administration of intravenous contrast material. Individualized dose optimization techniques were used for this CT. COMPARISON: None FINDINGS: Normal calvarium. Normal soft tissues. Normal size ventricles and extra-axial spaces for the patient''s age. Normal white matter tracts of the cerebral hemispheres. Normal basal ganglia and thalami. Normal brainstem. Normal cerebellum. There is no intracranial hemorrhage. There are no findings of an acute ischemic infarction. Normal visualized paranasal sinuses. ASPECTS 10 CT/Brain/Head without Contrast IMPRESSION: There are no acute intracranial findings. Electronically Signed: Jose Rafael Leyva MD at 16:43 EST , Service support ,
--- NOTE | 2021-09-30 16:40 | EX.ED.GENINJ ---
HPI History of Present Illness Chief Complaint: Other, Pain/Inj Narrative Narrative: Patient presenting with left-sided neck pain. He states this started about a week ago when he fell through his floorboards at home. He states he only went up to his knees and states he felt like he blacked out for a couple of seconds after this. He is unsure if he hit his head but he showed me a picture of this area and he thinks he could have hit his head on the locker that was right next to the hole. He denies lower extremity injuries. He denies headache. He states his primary care doctor in [place] told her to come to the ER for evaluation. [facility] Medical History Diabetes TTP (thrombotic thrombocytopenic purpura) Home Medications lamotrigine 200 mg PO QHS 02/01/21 [History Last Taken Unknown] quetiapine 400 mg PO QHS 02/01/21 [History Last Taken Unknown] insulin lispro [Humalog KwikPen Insulin] 10 unit SUBCUT TIDCM #15 ml 06/19/21 [Rx Last Taken Unknown] buspirone 10 mg PO TID 09/30/21 [History Last Taken Unknown] cyclobenzaprine 10 mg PO TID PRN #20 tablet 09/30/21 [Rx Last Taken Unknown] insulin glargine [Lantus Solostar U-100 Insulin] 35 unit SUBCUT BID 09/30/21 [History Last Taken Unknown] Allergy/AdvReac Type Severity Reaction Status Date / Time adhesive Allergy Rash Verified 09/30/21 15:28 dicyclomine HCl [From Bentyl] Allergy Hives Verified 09/30/21 15:28 fentanyl Allergy Hives Verified 09/30/21 15:28 Latex, Natural Rubber Allergy Rash Verified 09/30/21 15:28 methadone Allergy Other Verified 09/30/21 15:28 morphine Allergy Swelling Verified 09/30/21 15:28 prednisone Allergy Rash Verified 09/30/21 15:28 tramadol HCl [From Ultram] Allergy Hives Verified 09/30/21 15:28 aspirin AdvReac Other Verified 09/30/21 15:28 ketorolac tromethamine AdvReac Upset Verified 09/30/21 15:28 [From Toradol] Stomach Family History Other Diabetes Surgical History H/O eye surgery Social History Smoking Status: Current every day smoker tobacco type: cigarettes ROS ROS ED Constitutional Constitutional ED: Denies chills or fever(s) Eyes Eyes: Denies blurry vision or change in vision ENT ENT ED: Denies rhinorrhea or sore throat Cardiovascular Cardiovascular: Denies chest pain or palpitations Respiratory/Chest Respiratory/Chest: Denies cough or dyspnea Gastrointestinal Gastrointestinal: Denies abdominal pain, nausea or vomiting Genitourinary Genitourinary ED: Denies dysuria or hematuria Musculoskeletal Musculoskeletal: Reports neck pain; Denies myalgias Integumentary Denies Abrasions or rash Neurologic Neurologic: Denies headache(s) Psychiatric Psychiatric: Denies anxiety or depression EXAM Physical Exam Const Vital Signs: 09/30/21 15:26 Temperature 97.6 F L Temperature Source Temporal Pulse Rate 97 Respiratory Rate 18 Blood Pressure 123/73 H Blood Pressure Mean 89 Pulse Ox 95 Oxygen Delivery Method Room Air Positive well nourished General Appearance ED: NAD HEENT atraumatic Eyes PERRL and EOMs intact bilaterally Neck full ROM Neck Narrative: Tenderness to palpation in left cervical spinal musculature paraspinally. There is no midline spinal deformity or step-off Resp normal respiratory effort and clear to auscultation bilaterally Cardio regular rhythm Rate: regular rate Extremity normal to inspection; Negative for full ROM General Extremety ED: Negative for tenderness Neuro oriented x3 and CN's II-XII intact bilaterally Sensorium / Orientation: alert Psych mental status grossly normal and thought process normal Skin no rashes or lesions noted MDM MDM MDM Narrative Medical decision making narrative: Patient presenting with neck pain and states he lost consciousness when he fell to his floor about a week ago. He does not have any bony tenderness on examination of the cervical spine. I did obtain a CT brain and a CT cervical spine and these are both negative for acute findings. Patient requested something for pain and was given oxycodone in the ER. Patient requested prescription for muscle relaxers for home and this is provided. Patient will follow up with his PCP in [facility]. Impression: 1. Closed head injury 2. Cervical strain Radiography Diagnostic Testing: Clinical Impression(s) from Imaging Studies Brain CT 09/30/21 16:20 IMPRESSION: There are no acute intracranial findings. Electronically Signed: Jose Rafael Leyva MD at 16:43 EST , Service support , Cervical Spine CT 09/30/21 16:20 IMPRESSION: Degenerative changes of the cervical spine at C5-6. There is mild straightening of the normal cervical lordosis. This can suggest neck strain. Electronically Signed: Jose Rafael Leyva MD at 16:44 EST , Service support , Discharge Plan Triage Chief Complaint: Other, Pain/Inj ED Provider: Markell Mcconnell Dx/Rx/DC Orders Instructions: ED Neck Sprain or Strain Prescriptions: New cyclobenzaprine 10 mg tablet 10 mg PO TID PRN (Reason: Muscle Spasm) Qty: 20 RF: 0 No Action lamotrigine 200 MG tablet 200 mg PO QHS RF: 0 quetiapine 400 MG tablet extended release 24 hr 400 mg PO QHS RF: 0 insulin lispro [Humalog KwikPen Insulin] 100 unit/mL Insulin Pen 10 unit subcut TIDCM Qty: 15 RF: 0 buspirone 10 mg tablet 10 mg PO TID RF: 0 Lantus Solostar U-100 Insulin 100 unit/mL (3 mL) insulin pen 35 unit subcut BID RF: 0 Primary Care Provider: Care Physician,No Primary Referrals: Care Physician,No Primary [Primary Care Provider] - Disposition Disposition: Home, Self Care Discharge Date/Time: 09/30/21 17:29
[2021-09-30] MEDS: oxyCODONE 5 MG Tablet PO (17:27)
== END 2021-09-30 17:29 | disposition home or self-care (01) ==
PROVIDERS: Emergency Provider Student in an Organized Health Care Education/Training Program
DX: S09.90XA Unspecified injury of head, initial encounter (principal); S16.1XXA Strain of muscle, fascia and tendon at neck level, initial encounter; F17.210 Nicotine dependence, cigarettes, uncomplicated; E11.9 Type 2 diabetes mellitus without complications; Z79.4 Long term (current) use of insulin; Z79.899 Other long term (current) drug therapy; W17.89XA Other fall from one level to another, initial encounter
CPT/HCPCS: 70450; 72125; 99283

== ENCOUNTER 2021-10-08 19:02 | Emergency (ER) | payer MEDICAID, SELFPAY ==
[2021-10-08 19:02] VITALS: BP 116/77; PULSE 94; RESP 18; TEMP 36.6; O2SAT 95; BMI 42.8
--- NOTE | 2021-10-08 19:27 | EDS_ITS ---
HPI History of Present Illness Chief Complaint: Other, Pain/Inj Informant: patient Onset/Context/Timing Onset: Weeks (2-3) Context: Gradual Onset (Day after injury) Timing: Continuous Quality: Aching Location: Left posterior base neck Current Severity: Moderate Maximum Severity: Moderate Worsened by: Turning head the left Relieved by: Remaining still Associated Symptoms Associated Symptoms: None Narrative Narrative: Patient states he had a fall several weeks ago, pain in his neck did not start that day, but started the next 1. He was seen here and had a CT scan showing no acute fracture or dislocation. He was prescribed muscle relaxers which he has been taking along with [id number] anti-inflammatories as well as Tylenol, states it was gradually improving but after sleeping last night and waking up this morning it hurt a lot worse with no new symptoms. No numbness or tingling or weakness in his extremities, no bowel or bladder dysfunction, no loss of consciousness, or any other injury. [facility] Medical History Diabetes TTP (thrombotic thrombocytopenic purpura) Home Medications lamotrigine 200 mg PO QHS 02/01/21 [History Last Taken Unknown] quetiapine 400 mg PO QHS 02/01/21 [History Last Taken Unknown] insulin lispro [Humalog KwikPen Insulin] 10 unit SUBCUT TIDCM #15 ml 06/19/21 [Rx Last Taken Unknown] buspirone 10 mg PO TID 09/30/21 [History Last Taken Unknown] cyclobenzaprine 10 mg PO TID PRN #20 tablet 09/30/21 [Rx Last Taken Unknown] insulin glargine [Lantus Solostar U-100 Insulin] 35 unit SUBCUT BID 09/30/21 [History Last Taken Unknown] Allergy/AdvReac Type Severity Reaction Status Date / Time adhesive Allergy Rash Verified 10/08/21 19:04 dicyclomine HCl [From Bentyl] Allergy Hives Verified 10/08/21 19:04 fentanyl Allergy Hives Verified 10/08/21 19:04 Latex, Natural Rubber Allergy Rash Verified 10/08/21 19:04 methadone Allergy Other Verified 10/08/21 19:04 morphine Allergy Swelling Verified 10/08/21 19:04 prednisone Allergy Rash Verified 10/08/21 19:04 tramadol HCl [From Ultram] Allergy Hives Verified 10/08/21 19:04 aspirin AdvReac Other Verified 10/08/21 19:04 ketorolac tromethamine AdvReac Upset Verified 10/08/21 19:04 [From Toradol] Stomach Family History Other Diabetes Surgical History H/O eye surgery Social History Smoking Status: Current every day smoker tobacco type: cigarettes ROS ROS ED Constitutional Constitutional ED: Denies chills or fever(s) Musculoskeletal Musculoskeletal: Reports extremity pain and neck pain; Denies back pain Integumentary Denies Abrasions, rash or wounds Neurologic Neurologic: Denies paresthesias or weakness EXAM Physical Exam Const Vital Signs: 10/08/21 19:02 Temperature 98 F Temperature Source Temporal Pulse Rate 94 Respiratory Rate 18 Blood Pressure 116/77 Blood Pressure Mean 90 Pulse Ox 95 Positive well nourished and well developed General Appearance ED: well developed and NAD Neck supple Neck Narrative: Tender left trapezius muscle and into the paraspinal musculature at the base of the posterior aspect of the neck. Able to range but more painful to do so ipsilaterally to the left. Back/Spine normal ROM and normal to inspection Neuro oriented x3, no focal motor deficits, no sensory deficits noted and gait normal Sensorium / Orientation: alert Psych mental status grossly normal and thought process normal Skin no wounds Rashes: no rashes MDM MDM MDM Narrative Medical decision making narrative: Patient has medication intolerances, he states he is on probation and cannot have any narcotics which obviously is fine. He was given injection of Toradol here, which he can tolerate along with Zofran, and a dose of Norflex. I reassured him, and advised him that neck strains can take weeks to heal due to continuous use of those muscles. I see no reason to perform repeat imaging at this time he is comfortable with that plan. Discharge Plan Triage Chief Complaint: Other, Pain/Inj ED Provider: Ashok Norton Dx/Rx/DC Orders Clinical Impression: Acute cervical myofascial strain Instructions: ED Neck Sprain or Strain Prescriptions: No Action lamotrigine 200 MG tablet 200 mg PO QHS RF: 0 quetiapine 400 MG tablet extended release 24 hr 400 mg PO QHS RF: 0 insulin lispro [Humalog KwikPen Insulin] 100 unit/mL Insulin Pen 10 unit subcut TIDCM Qty: 15 RF: 0 buspirone 10 mg tablet 10 mg PO TID RF: 0 Lantus Solostar U-100 Insulin 100 unit/mL (3 mL) insulin pen 35 unit subcut BID RF: 0 cyclobenzaprine 10 mg tablet 10 mg PO TID PRN (Reason: Muscle Spasm) Qty: 20 RF: 0 Primary Care Provider: Care Physician,No Primary Referrals: Krista Brumfield [NON-STAFF] - 1 Week if not improving Care Physician,No Primary [Primary Care Provider] - Disposition Disposition: Home, Self Care
[2021-10-08] MEDS: Ketorolac 60 MG/2 ML Vial IM (19:36)
[2021-10-08] MEDS: Ondansetron ODT 4 MG Tablet 8 MG PO (19:37)
[2021-10-08] MEDS: Orphenadrine 60 MG/2 ML Ampul IM (19:37)
[2021-10-08 20:15] VITALS: BP 138/76; PULSE 88; RESP 18; TEMP 36.9; O2SAT 96
== END 2021-10-08 20:16 | disposition home or self-care (01) ==
PROVIDERS: Emergency Provider Emergency Medicine
DX: S16.1XXA Strain of muscle, fascia and tendon at neck level, initial encounter (principal); F17.210 Nicotine dependence, cigarettes, uncomplicated; E11.9 Type 2 diabetes mellitus without complications; Z79.4 Long term (current) use of insulin; Z79.899 Other long term (current) drug therapy; X58.XXXA Exposure to other specified factors, initial encounter
CPT/HCPCS: 96372; 99282

== ENCOUNTER 2021-11-20 20:34 | Emergency (ER) | payer MEDICAID, SELFPAY ==
[2021-11-20 20:35] VITALS: BP 132/94; PULSE 99; RESP 18; TEMP 36.1; O2SAT 97; BMI 43.1
--- NOTE | 2021-11-20 20:49 | EDS_ITS ---
HPI History of Present Illness Chief Complaint: Back Informant: patient Onset/Context/Timing Onset: Weeks (1) Context: Gradual Onset Timing: Continuous Quality: Sharp Location: Lumbar Worsened by: improves with Nothing Relieved by: Nothing Associated Symptoms Associated Symptoms: Tingling and Radiation to Left Leg; Negative for Numbness, Radiation to Right Leg, Fever, Abdominal Pain, Dysuria, Unable to Ambulate, Unable to Transfer, Urinary Retention, Urinary Incontinence, Constipation and Fecal Incontinence Narrative Narrative: Patient presents with low back pain that has been constant for the past week. Patient states a month ago he fell through his floor and injured his ankle, knee, and back. Patient states his pain does radiate down his left leg. Patient admits to some tingling. Patient states he felt like his left leg was going to give out on him today while he was walking. Patient denies any numbness. Patient denies any paresthesias. Patient denies any incontinence of urine or stool. Patient denies any saddle anesthesia. [facility] Medical History Diabetes TTP (thrombotic thrombocytopenic purpura) Home Medications lamotrigine 200 mg PO QHS 02/01/21 [History Last Taken Unknown] quetiapine 400 mg PO QHS 02/01/21 [History Last Taken Unknown] insulin lispro [Humalog KwikPen Insulin] 10 unit SUBCUT TIDCM #15 ml 06/19/21 [Rx Last Taken Unknown] buspirone 10 mg PO TID 09/30/21 [History Last Taken Unknown] cyclobenzaprine 10 mg PO TID PRN #20 tablet 09/30/21 [Rx Last Taken Unknown] insulin glargine [Lantus Solostar U-100 Insulin] 35 unit SUBCUT BID 09/30/21 [Hi story Last Taken Unknown] hydrocodone-acetaminophen 1 tab PO Q6H PRN PRN 3 Days #10 tablet 11/20/21 [Rx Last Taken Unknown] Allergy/AdvReac Type Severity Reaction Status Date / Time adhesive Allergy Rash Verified 11/20/21 20:35 dicyclomine HCl [From Bentyl] Allergy Hives Verified 11/20/21 20:35 fentanyl Allergy Hives Verified 11/20/21 20:35 Latex, Natural Rubber Allergy Rash Verified 11/20/21 20:35 methadone Allergy Other Verified 11/20/21 20:35 morphine Allergy Swelling Verified 11/20/21 20:35 prednisone Allergy Rash Verified 11/20/21 20:35 tramadol HCl [From Ultram] Allergy Hives Verified 11/20/21 20:35 aspirin AdvReac Other Verified 11/20/21 20:35 ketorolac tromethamine AdvReac Upset Verified 11/20/21 20:35 [From Toradol] Stomach Family History Other Diabetes Surgical History H/O eye surgery Social History Smoking Status: Current every day smoker tobacco type: cigarettes ROS ROS ED Constitutional Constitutional ED: Denies chills or fever(s) Eyes Eyes: Denies blurry vision or change in vision ENT ENT ED: Denies rhinorrhea or sore throat Cardiovascular Cardiovascular: Denies chest pain or palpitations Respiratory/Chest Respiratory/Chest: Denies cough or dyspnea Gastrointestinal Gastrointestinal: Denies nausea or vomiting Genitourinary Genitourinary ED: Denies dysuria or hematuria Musculoskeletal Musculoskeletal: Reports back pain; Denies neck pain Integumentary Denies abscess or rash Neurologic Neurologic: Reports headache(s); Denies weakness Allergic/Immunologic Allergic/Immunologic ED: Denies mouth swelling or urticaria EXAM Physical Exam Const Vital Signs: 11/20/21 20:35 Temperature 97.0 F L Temperature Source Temporal Pulse Rate 99 Respiratory Rate 18 Blood Pressure 132/94 H Blood Pressure Mean 106 Pulse Ox 97 Oxygen Delivery Method Room Air Positive well nourished, well developed and obese General Appearance ED: well developed Nutritional Appearance: obese HEENT Reports moist mucous membranes Neck supple and no JVD Back/Spine Back/Spine Narrative: There is tenderness over the lumbar paraspinal muscles bilaterally. There is no bony crepitance or step-off. Range of motion was li mited in all motions of the lumbar spine secondary to pain. Strength is 5/5 bilaterally in the lower extremities. There are no sensory deficits noted. Deep tendon reflexes were 2/4 bilaterally in the lower extremities. Lumbar Spine / Lower Back: ROM limited and straight leg raise negative bilaterally Extremity normal to inspection General Extremety ED: Negative for edema or tenderness General Extremity: Negative for edema Neuro oriented x3 and no sensory deficits noted Sensorium / Orientation: alert Motor Exam: strength 5/5 throughout Deep Tendon Reflexes: Rt Patellar (L4): 2+, Lt Patellar (L4): 2+, Rt Ankle (S1): 2+ and Lt Ankle (S1): 2+ Deep Tendon Reflexes Back: Rt Patellar (L4): 2+, Lt Patellar (L4): 2+, Rt Ankle (S1): 2+ and Lt Ankle (S1): 2+ Psych mental status grossly normal MDM MDM MDM Narrative Medical decision making narrative: Patient was given a dose of [place] here. Patient was given a prescription for a short course of [place]. Patient requested an MRI be done tonight. Patient was advised she does not meet criteria for emergent MRI. Patient was instructed to follow-up with his primary care physician in 5 to 7 days. If he meets criteria for an MRI at that time, his primary care physician can order it. Patient understood and was agreeable with the plan. All questions were answered. Discharge Plan Triage Chief Complaint: Back ED Provider: Eliecer Cortez Dx/Rx/DC Orders Clinical Impression: Acute low back pain Instructions: ED Back Sprain/Strain, ED Sciatica Prescriptions: New hydrocodone-acetaminophen [hydrocodone-acetaminophen] 1 TABLET tablet 1 tab PO Q6H PRN PRN (Reason: Pain) 3 Days Qty: 10 RF: 0 No Action lamotrigine 200 MG tablet 200 mg PO QHS RF: 0 quetiapine 400 MG tablet extended release 24 hr 400 mg PO QHS RF: 0 insulin lispro [Humalog KwikPen Insulin] 100 unit/mL Insulin Pen 10 unit subcut TIDCM Qty: 15 RF: 0 buspirone 10 mg tablet 10 mg PO TID RF: 0 Lantus Solostar U-100 Insulin 100 unit/mL (3 mL) insulin pen 35 unit subcut BID RF: 0 cyclobenzaprine 10 mg tablet 10 mg PO TID PRN (Reason: Muscle Spasm) Qty: 20 RF: 0 Primary Care Provider: [facility] Doctor,Out of Referrals: [facility] Doctor,Out of [Primary Care Provider] - 3-5 Days Disposition Disposition: Home, Self Care
[2021-11-20] MEDS: HYDROcodone Bitartrate/Apap 5/325 Tablet PO (21:02)
== END 2021-11-20 21:12 | disposition home or self-care (01) ==
LOC: ED 21:12
PROVIDERS: Emergency Provider Emergency Medicine; Visit Provider Emergency Medicine
DX: M54.50 Low back pain, unspecified (principal); F17.210 Nicotine dependence, cigarettes, uncomplicated; E66.9 Obesity, unspecified
CPT/HCPCS: 99283

== ENCOUNTER 2021-11-23 20:53 | Emergency (ER) | payer MEDICAID, SELFPAY ==
[2021-11-23 20:54] VITALS: BP 141/95; PULSE 97; RESP 16; TEMP 36.3; O2SAT 98; BMI 43.1
--- NOTE | 2021-11-23 21:41 | RAD_ITS ---
EXAM: XR LUMBOSACRAL SPINE, 2 OR 3 VIEWS : 1980 CLINICAL INDICATION: pain/injury TECHNIQUE: Frontal and lateral views of the lumbar spine and sacrum. This report was created using [employer] report [employer] technology. COMPARISON: None. FINDINGS: VERTEBRAE: Unremarkable. Preserved vertebral body height. No fracture. No spondylolisthesis. Preservation of the normal lumbar lordosis. No significant facet arthropathy. DISC SPACES: No acute findings. Disc spaces are maintained. GASTROINTESTINAL TRACT: Unremarkable as visualized. Included bowel gas pattern is non-obstructive. RAD/Lumbar Spine 2 or 3 Views IMPRESSION: No evidence of lumbar spinal fracture or spondylolisthesis. at 2202 Reported and signed by: Theo Duque MD Electronically Signed: Theo Duque MD at 22:01 EST ,
--- NOTE | 2021-11-23 21:56 | EDS_ITS ---
HPI History of Present Illness Chief Complaint: Back Informant: patient Onset/Context/Timing Onset: Month(s) (2) Context: Sudden Onset Injury: fall Timing: Continuous Quality: Aching Location: Lumbar and Left Leg (Thigh, does not go below knee) Current Severity: Moderate Maximum Severity: Severe Worsened by: improves with Movement, Bending and - (Sitting) Relieved by: - (Reclined position) Associated Symptoms Associated Symptoms: Radiation to Left Leg; Negative for Numbness, Tingling, Abdominal Pain, Unable to Ambulate, Urinary Retention, Urinary Incontinence, Constipation and Fecal Incontinence Narrative Narrative: Patient was seen here 3 days ago for the same thing, he states since then he has been having a lot of muscle spasms along with the pain in his back. He states this started a couple months ago with a fall through a floor. He has had no x-rays since that occurred including several days ago. He states that he does not have any other new symptoms except for the muscle spasms. Denies any bowel or bladder dysfunction. He denies any numbness, the pain radiates into his left thigh but not below the knee. He states he tried the [place] he was prescribed but it really did not help so he still has 8 of them left, he was prescribed 10 of them, he states he is not looking for narcotics since they did not help he was looking for something else like a muscle relaxer. He had good luck with Flexeril in the past. [facility] Medical History Diabetes TTP (thrombotic thrombocytopenic purpura) Home Medications lamotrigine 200 mg PO QHS 02/01/21 [History Last Taken Unknown] quetiapine 400 mg PO QHS 02/01/21 [History Last Taken Unknown] insulin lispro [Humalog KwikPen Insulin] 10 unit SUBCUT TIDCM #15 ml 06/19/21 [Rx Last Taken Unknown] Lantus Solostar U-100 Insulin 35 unit SUBCUT BID 09/30/21 [History Last Taken Unknown] buspirone 10 mg PO TID 09/30/21 [History Last Taken Unknown] hydrocodone-acetaminophen 1 tab PO Q6H PRN PRN 3 Days #10 tablet 11/20/21 [Rx Last Taken Unknown] cyclobenzaprine 10 mg PO TID PRN #20 tablet 11/23/21 [Rx Last Taken Unknown] Allergy/AdvReac Type Severity Reaction Status Date / Time adhesive Allergy Rash Verified 11/20/21 20:35 dicyclomine HCl [From Bentyl] Allergy Hives Verified 11/20/21 20:35 fentanyl Allergy Hives Verified 11/20/21 20:35 Latex, Natural Rubber Allergy Rash Verified 11/20/21 20:35 methadone Allergy Other Verified 11/20/21 20:35 morphine Allergy Swelling Verified 11/20/21 20:35 prednisone Allergy Rash Verified 11/20/21 20:35 tramadol HCl [From Ultram] Allergy Hives Verified 11/20/21 20:35 aspirin AdvReac Other Verified 11/20/21 20:35 ketorolac tromethamine AdvReac Upset Verified 11/20/21 20:35 [From Toradol] Stomach Family History Other Diabetes Surgical History H/O eye surgery Social History Smoking Status: Current every day smoker tobacco type: cigarettes ROS ROS ED Constitutional Constitutional ED: Denies chills or fever(s) Gastrointestinal Gastrointestinal: Denies abdominal pain, constipation, fecal incontinence, nausea or vomiting Genitourinary Genitourinary ED: Reports other Details: no urinary retention ; Denies abdominal discomfort or urinary incontinence Musculoskeletal Musculoskeletal: Reports as per HPI, back pain and muscle spasms; Denies neck pain Integumentary Denies rash or wounds Neurologic Neurologic: Denies headache(s), paresthesias or weakness EXAM Physical Exam Const Vital Signs: 11/23/21 20:54 Temperature 97.4 F L Temperature Source Temporal Pulse Rate 97 Respiratory Rate 16 Blood Pressure 141/95 H Blood Pressure Mean 110 Pulse Ox 98 Oxygen Delivery Method Room Air Positive well nourished, well developed and obese General Appearance ED: well developed and NAD Nutritional Appearance: obese HEENT Negative for trauma or tenderness Eyes PERRL and EOMs intact bilaterally Neck full ROM and supple GI normal to inspection, nondistended, normoactive bowel sounds, soft to palpation and non-tender Back/Spine normal to inspection Lumbar Spine / Lower Back: normal to inspection, ROM limited, lumbar spinal tenderness L5 (And associated paraspinal areas) and straight leg raise negative bilaterally Extremity normal to inspection, full ROM and no pedal edema Neuro oriented x3 and no sensory deficits noted Sensorium / Orientation: alert Motor Exam: strength 5/5 throughout and clonus absent Deep Tendon Reflexes: Rt Patellar (L4): 2+, Lt Patellar (L4): 2+, Rt Ankle (S1): 2+ and Lt Ankle (S1): 2+ Deep Tendon Reflexes Back: Rt Patellar (L4): 2+, Lt Patellar (L4): 2+, Rt Ankle (S1): 2+ and Lt Ankle (S1): 2+ Plantar Reflex: Downgoing: bilateral Psych mental status grossly normal and thought process normal Skin no rashes or lesions noted and no wounds MDM MDM MDM Narrative Medical decision making narrative: The patient has lumbar x-rays from 2013. We obtained x-rays tonight. On my interpretation, 3 views show no acute fractures or major differences compared with the old ones. Radiology is in agreement. I think it is reasonable to prescribe a muscle relaxer but I am not giving him a dose here because he is driving to cloth pick[place] his . He is comfortable with the overall plan will follow up with his doctor, already has an appointment. Radiography Diagnostic Testing: Clinical Impression(s) from Imaging Studies Lumbar Spine X-Ray 11/23/21 21:41 IMPRESSION: No evidence of lumbar spinal fracture or spondylolisthesis. at 2202 Reported and signed by: Theo Duque MD Electronically Signed: Theo Duque MD at 22:01 EST , Discharge Plan Triage Chief Complaint: Back ED Provider: Ashok Norton Dx/Rx/DC Orders Clinical Impression: Acute low back pain, Back muscle spasm Instructions: Relieving Back Pain, ED Muscle Spasm Prescriptions: Continued lamotrigine 200 MG tablet 200 mg PO QHS RF: 0 quetiapine 400 MG tablet extended release 24 hr 400 mg PO QHS RF: 0 insulin lispro [Humalog KwikPen Insulin] 100 unit/mL Insulin Pen 10 unit subcut TIDCM Qty: 15 RF: 0 buspirone 10 mg tablet 10 mg PO TID RF: 0 Lantus Solostar U-100 Insulin 100 unit/mL (3 mL) insulin pen 35 unit subcut BID RF: 0 hydrocodone-acetaminophen 1 TABLET tablet 1 tab PO Q6H PRN PRN (Reason: Pain) 3 Days Qty: 10 RF: 0 cyclobenzaprine 10 mg tablet 10 mg PO TID PRN (Reason: Muscle Spasm) Qty: 20 RF: 0 Primary Care Provider: [facility] Doctor,Out of Referrals: [facility] Doctor,Out of [Primary Care Provider] - Keep [facility] appointment Disposition Disposition: Home, Self Care
== END 2021-11-23 22:21 | disposition home or self-care (01) ==
PROVIDERS: Emergency Provider Emergency Medicine; Visit Provider Emergency Medicine
DX: M54.50 Low back pain, unspecified (principal); M62.830 Muscle spasm of back; F17.210 Nicotine dependence, cigarettes, uncomplicated; E66.9 Obesity, unspecified
CPT/HCPCS: 72100; 99282

== ENCOUNTER 2021-12-14 19:35 | Emergency (ER) | payer MEDICAID, SELFPAY ==
[2021-12-14 19:35] VITALS: BP 142/107; PULSE 101; RESP 16; TEMP 36.1; O2SAT 98; BMI 42.0
--- NOTE | 2021-12-14 19:47 | EDS_ITS ---
HPI History of Present Illness Chief Complaint: Upper Extremity Injury Detail of Chief Complaint: Atraumatic right hand pain Informant: patient Onset/Context/Timing Onset: Days (Several days) Context: Sudden Onset Timing: Continuous and Waxes and wanes Quality of Pain: Dull Location: MCP joints of his index, long, ring and little finger and PIP joint of mult Current Severity: Mild Maximum Severity: Moderate Worsened by: Flexion of the fingers Relieved by: Extension and rest Associated Symptoms Associated Symptoms: Negative for Parasthesia, Weakness and Loss of Funtion Narrative Narrative: Patient is a 41-year-old male who is presently unemployed who has not been using his right or left hand repetitively. He presents with atraumatic right hand pain that involves multiple joints of his right fingers PIP and MCP. He denies history of autoimmune disorder. He denies joint swelling or redness. He has no prior history of injury to the hand. He denies paresthesia, anesthesia medics. He does admit to smoking. Denies drug use. Tetanus Immunization: 5-10 years Prior similar symptoms: No Recent Illness/Hospitalization: No [facility] Medical History Anxiety Depression Diabetes Migraines Smoker Substance abuse TTP (thrombotic thrombocytopenic purpura) Home Medications lamotrigine 200 mg PO QHS 02/01/21 [History Last Taken Unknown] quetiapine 400 mg PO QHS 02/01/21 [History Last Taken Unknown] insulin lispro [Humalog KwikPen Insulin] 10 unit SUBCUT TIDCM #15 ml 06/19/21 [Rx Last Taken Unknown] Lantus Solostar U-100 Insulin 35 unit SUBCUT BID 09/30/21 [History Last Taken Unknown] buspirone 10 mg PO TID 09/30/21 [History Last Taken Unknown] hydrocodone-acetaminophen 1 tab PO Q6H PRN PRN 3 Days #10 tablet 11/20/21 [Rx Last Taken Unknown] cyclobenzaprine 10 mg PO TID PRN #20 tablet 11/23/21 [Rx Last Taken Unknown] Allergy/AdvReac Type Severity Reaction Status Date / Time adhesive Allergy Rash Verified 12/14/21 19:37 dicyclomine HCl [From Bentyl] Allergy Hives Verified 12/14/21 19:37 fentanyl Allergy Hives Verified 12/14/21 19:37 Latex, Natural Rubber Allergy Rash Verified 12/14/21 19:37 methadone Allergy Other Verified 12/14/21 19:37 morphine Allergy Swelling Verified 12/14/21 19:37 prednisone Allergy Rash Verified 12/14/21 19:37 tramadol HCl [From Ultram] Allergy Hives Verified 12/14/21 19:37 aspirin AdvReac Other Verified 12/14/21 19:37 ketorolac tromethamine AdvReac Upset Verified 12/14/21 19:37 [From Toradol] Stomach Family History Other Diabetes Surgical History H/O eye surgery Social History (Updated 12/14/21 @ 19:[address] Antonio Montgomery MD) household members: spouse Smoking Status: Current every day smoker tobacco type: cigarettes substance use type: former substance user ROS ROS ED Constitutional Constitutional ED: Denies chills, fever(s), subjective, sweats or weight loss Gastrointestinal Gastrointestinal: Denies diarrhea, nausea or vomiting Musculoskeletal Musculoskeletal: Reports other Details: Joint pain in the MCP and proximal phalanx of his right fingers. Also complains of pain in the palm. ; Denies back pain, myalgias or neck pain Integumentary Denies Abrasions or rash Neurologic Neurologic: Denies paresthesias or weakness Hematologic/Lymphatic Hematologic/Lymphatic: Denies easy bleeding or easy bruising Allergic/Immunologic Allergic/Immunologic ED: Denies mouth swelling or urticaria EXAM Physical Exam Const Vital Signs: 12/14/21 19:35 Temperature 97 F L Temperature Source Temporal Pulse Rate 101 H Respiratory Rate 16 Blood Pressure 142/107 H Blood Pressure Mean 118 Pulse Ox 98 Oxygen Delivery Method Room Air Positive well nourished, well developed and obese General Appearance ED: well developed and NAD Nutritional Appearance: obese HEENT normocephalic and atraumatic Eyes PERRL and EOMs intact bilaterally Resp normal respiratory effort Cardio regular rate and regular rhythm Extremity normal to inspection and full ROM Extremity Narrative: Complains of pain MCP joint of the right index and long finger. There is no bogginess. There is no erythema or warmth. Also complains of tenderness PIP joint of the long and ring finger of his right hand. Capillary refill is normal. The extensor in the side, and extensor commonest and extensor minimized tendon are functionally intact. The flexor digitorum superficialis and flexor digitorum profundus are intact. There is no evidence to suggest Dupuytren contractures. Capillary refill is normal. Median, radial and ulnar function are intact. General Extremety ED: Negative for edema General Extremity: Negative for edema Neuro oriented x3 and CN's II-XII intact bilaterally Sensorium / Orientation: alert Psych mental status grossly normal Skin Lesions: no lesions Rashes: no rashes Trauma: no lacerations or abrasions MDM MDM MDM Narrative Medical decision making narrative: X-ray was obtained to see if there is any evidence of osteoarthritis or any other abnormality to explain his symptoms. With history of diabetes, peptic ulcer disease with melena and history of drug addiction recommended Tylenol for pain control. Radiography Diagnostic Testing: Three-view x-ray of the right hand reveals no abnormality of the osseous structures. There is no abnormality of the DIP, PIP or MCP joint of his fingers. The IP joint and MCP joint of his thumb appear normal. The carpal bones appear normal. Discharge Plan Triage Chief Complaint: Upper Extremity Injury ED Provider: Antonio Montgomery Dx/Rx/DC Orders Clinical Impression: Polyarthralgia Instructions: ED Arthralgia Prescriptions: No Action lamotrigine 200 MG tablet 200 mg PO QHS RF: 0 quetiapine 400 MG tablet extended release 24 hr 400 mg PO QHS RF: 0 insulin lispro [Humalog KwikPen Insulin] 100 unit/mL Insulin Pen 10 unit subcut TIDCM Qty: 15 RF: 0 buspirone 10 mg tablet 10 mg PO TID RF: 0 Lantus Solostar U-100 Insulin 100 unit/mL (3 mL) insulin pen 35 unit subcut BID RF: 0 hydrocodone-acetaminophen 1 TABLET tablet 1 tab PO Q6H PRN PRN (Reason: Pain) 3 Days Qty: 10 RF: 0 cyclobenzaprine 10 mg tablet 10 mg PO TID PRN (Reason: Muscle Spasm) Qty: 20 RF: 0 Primary Care Provider: Care Physician,No Primary Referrals: Care Physician,No Primary [Primary Care Provider] - Doctor,Your [STAFF PHYSICIAN] - 1-2 Weeks Activity Restrictions/Additional Instructions: The name of your physician is located on your insurance card issued to you by [facility]. If this persist you will need further testing to evaluate for possible autoimmune disorder. Disposition Disposition: Home, Self Care
--- NOTE | 2021-12-14 19:52 | RAD_ITS ---
STUDY: X-RAY - RIGHT HAND REASON FOR EXAM: Male, 41 years old. Injury/Pain TECHNIQUE: view(s) of the hand. COMPARISON: None. FINDINGS: Normal radiocarpal articulation. Normal distal radioulnar joint. Normal visualized carpal bones. Normal carpal articulations Normal carpometacarpal articulation of the thumb. Normal second through fifth carpometacarpal joints. Normal metacarpi. Normal metacarpophalangeal joint of the thumb. Normal interphalangeal joint of the thumb. Normal proximal and distal phalanges of the thumb. Normal metacarpophalangeal joints of the second through fifth fingers. Normal proximal and distal interphalangeal joints of the second through fifth fingers. Normal phalanges of the second through fifth fingers. The soft tissue structures are unremarkable. RAD/Hand Min 3 Views IMPRESSION: Normal x-ray examination of the hand. Electronically Signed: Diane Lopez MD at 20:10 EST ,
[2021-12-14 20:06] VITALS: RESP 16
== END 2021-12-14 20:07 | disposition home or self-care (01) ==
PROVIDERS: Emergency Provider Emergency Medicine; Visit Provider Emergency Medicine
DX: M25.50 Pain in unspecified joint (principal); F17.210 Nicotine dependence, cigarettes, uncomplicated; E66.9 Obesity, unspecified
CPT/HCPCS: 73130; 99282

== ENCOUNTER 2022-01-06 19:21 | Emergency (ER) | payer MEDICAID, SELFPAY ==
[2022-01-06 19:22] VITALS: BP 160/105; PULSE 109; RESP 16; TEMP 36.3; O2SAT 99; BMI 45.3
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
[2022-01-06 20:04] VITALS: BP 158/90; PULSE 97; RESP 18
== END 2022-01-06 20:04 | disposition home or self-care (01) ==
PROVIDERS: Emergency Provider Emergency Medicine; Visit Provider Emergency Medicine
DX: S16.1XXA Strain of muscle, fascia and tendon at neck level, initial encounter (principal); E11.9 Type 2 diabetes mellitus without complications; Z79.4 Long term (current) use of insulin; F17.210 Nicotine dependence, cigarettes, uncomplicated; E66.9 Obesity, unspecified; F41.9 Anxiety disorder, unspecified; F32.A Depression, unspecified; V49.40XA Driver injured in collision with unspecified motor vehicles in traffic accident, initial encounter; Z79.899 Other long term (current) drug therapy
CPT/HCPCS: 99282

== ENCOUNTER 2022-01-13 14:55 | Emergency (ER) | payer MEDICAID, SELFPAY ==
[2022-01-13 14:56] VITALS: BP 135/97; PULSE 88; RESP 16; TEMP 36.1; O2SAT 99; BMI 43.2
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
[2022-01-13] MEDS: Lidocaine 5% Patch 1 PATCH TOPICAL (16:34)
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
== END 2022-01-13 18:02 | disposition home or self-care (01) ==
PROVIDERS: Emergency Provider Emergency Medicine; Visit Provider Emergency Medicine
DX: M62.830 Muscle spasm of back (principal); E11.9 Type 2 diabetes mellitus without complications; Z79.4 Long term (current) use of insulin; F17.210 Nicotine dependence, cigarettes, uncomplicated; F41.9 Anxiety disorder, unspecified; F32.A Depression, unspecified; Z79.899 Other long term (current) drug therapy
CPT/HCPCS: 72040; 99282

== ENCOUNTER 2022-02-21 18:08 | Emergency (ER) | payer MEDICAID, SELFPAY ==
[2022-02-21 18:09] VITALS: BP 147/82; PULSE 86; RESP 15; TEMP 36.3; O2SAT 98; BMI 41.5
--- NOTE | 2022-02-21 20:20 | EX.ED.UPPERE ---
HPI History of Present Illness Chief Complaint: Upper Extremity Injury Informant: patient Onset/Context/Timing Onset: Days Context: Gradual Onset Timing: Waxes and wanes Current Severity: Mild Maximum Severity: Moderate Narrative Narrative: Patient presents secondary to right wrist and arm pain. He is concerned he may have carpal tunnel. He is right-hand dominant. He describes pain at the volar aspect of the right wrist with tingling in his hand. Symptoms seem to be worse at night. PFSH PFS Medical History Anxiety Depression Diabetes Migraines Smoker Substance abuse TTP (thrombotic thrombocytopenic purpura) Home Medications lamotrigine 200 mg PO QHS 02/01/21 [History Last Taken Unknown] quetiapine 400 mg PO QHS 02/01/21 [History Last Taken Unknown] insulin lispro [Humalog KwikPen Insulin] 10 unit SUBCUT TIDCM #15 ml 06/19/21 [Rx Last Taken Unknown] Lantus Solostar U-100 Insulin 30 unit SUBCUT BID 09/30/21 [History Last Taken Unknown] buspirone 10 mg PO TID 09/30/21 [History Last Taken Unknown] dulaglutide [Trulicity] 0.75 mg SUBCUT QWEEK 01/06/22 [History Last Taken Unknown] cyclobenzaprine 10 mg PO BID PRN #10 tab 01/13/22 [Rx Last Taken Unknown] Allergy/AdvReac Type Severity Reaction Status Date / Time adhesive Allergy Rash Verified 01/13/22 14:59 dicyclomine HCl [From Bentyl] Allergy Hives Verified 01/13/22 14:59 fentanyl Allergy Hives Verified 01/13/22 14:59 Latex, Natural Rubber Allergy Rash Verified 01/13/22 14:59 methadone Allergy Other Verified 01/13/22 14:59 morphine Allergy Swelling Verified 01/13/22 14:59 prednisone Allergy Rash Verified 01/13/22 14:59 tramadol HCl [From Ultram] Allergy Hives Verified 01/13/22 14:59 aspirin AdvReac Other Verified 01/13/22 14:59 ketorolac tromethamine AdvReac Upset Verified 01/13/22 14:59 [From Toradol] Stomach Family History Other Diabetes Surgical History H/O eye surgery Social History (Reviewed 02/22/22 @ :[address] Bharti Dick MD) household members: spouse Smoking Status: Current every day smoker tobacco type: cigarettes substance use type: former substance user ROS ROS ED Constitutional Constitutional ED: Denies chills or fever(s) Eyes Eyes: Denies change in vision ENT ENT ED: Denies sore throat Cardiovascular Cardiovascular: Denies chest pain Respiratory/Chest Respiratory/Chest: Denies cough or dyspnea Gastrointestinal Gastrointestinal: Denies abdominal pain, diarrhea, nausea or vomiting Genitourinary Genitourinary ED: Denies dysuria Musculoskeletal Musculoskeletal: Reports myalgias and neck pain; Denies back pain Integumentary Denies rash Neurologic Neurologic: Reports paresthesias; Denies headache(s) or weakness Allergic/Immunologic Allergic/Immunologic ED: Denies urticaria EXAM Physical Exam Const Vital Signs: 02/21/22 18:09 Temperature 97.4 F L Temperature Source Temporal Pulse Rate 86 Respiratory Rate 15 Blood Pressure 147/82 H Blood Pressure Mean 103 Pulse Ox 98 Oxygen Delivery Method Room Air Positive well nourished and well developed General Appearance ED: well developed HEENT normocephalic Eyes PERRL and EOMs intact bilaterally Neck supple Chest Wall inspection of chest normal and palpation of chest normal Resp normal respiratory effort and clear to auscultation bilaterally Cardio regular rate and regular rhythm GI non-tender Palpation: soft Extremity Extremity Narrative: No reproducible muscular tenderness in the right upper extremity. Strong distal pulses with good cap refill. Tinel's and Phalen sign are positive on the right. Neuro oriented x3 Sensorium / Orientation: alert Skin Lesions: no lesions Rashes: no rashes MDM MDM Treatment and Re-Evaluation Narrative: Patient has allergies to multiple pain medications. He will continue Tylenol at home. We will give him a Velcro cock-up splint and he is referred to orthopedics for follow-up. Discharge Plan Triage Chief Complaint: Upper Extremity Injury ED Provider: Bharti Dick Dx/Rx/DC Orders Clinical Impression: Carpal tunnel syndrome on right Instructions: ED Carpal Tunnel Syndrome Prescriptions: No Action lamotrigine 200 MG tablet 200 mg PO QHS RF: 0 quetiapine 400 MG tablet extended release 24 hr 400 mg PO QHS RF: 0 insulin lispro [Humalog KwikPen Insulin] 100 unit/mL Insulin Pen 10 unit subcut TIDCM Qty: 15 RF: 0 buspirone 10 mg tablet 10 mg PO TID RF: 0 Lantus Solostar U-100 Insulin 100 unit/mL (3 mL) insulin pen 30 unit subcut BID RF: 0 Trulicity 0.75 mg/0.5 mL pen injector 0.75 mg SUBCUT QWEEK RF: 0 cyclobenzaprine 10 mg tablet 10 mg PO BID PRN (Reason: muscle spasm) Qty: 10 RF: 0 Referrals: LONNIE MILLER [Other] Akbar Stevens DO [STAFF PHYSICIAN] - 1-2 Weeks Disposition Disposition: Home, Self Care Discharge Date/Time: 02/21/22 20:38
== END 2022-02-21 20:38 | disposition home or self-care (01) ==
LOC: ED 20:24
PROVIDERS: Emergency Provider Emergency Medicine; Visit Provider Emergency Medicine
DX: G56.01 Carpal tunnel syndrome, right upper limb (principal); F17.210 Nicotine dependence, cigarettes, uncomplicated
CPT/HCPCS: 99283

== ENCOUNTER 2022-10-09 04:28 | Emergency (ER) | payer MEDICAID, SELFPAY ==
[2022-10-09 04:31] VITALS: BP 141/95; PULSE 99; RESP 20; TEMP 37.1; O2SAT 98; BMI 43.1
[2022-10-09 04:40] VITALS: BP 140/68; PULSE 87; RESP 16; O2SAT 97
--- NOTE | 2022-10-09 04:40 | EX.ED.UPPERE ---
HPI History of Present Illness Chief Complaint: Upper Extremity Injury Informant: patient Narrative Narrative: MyPatient states he has been having carpal tunnel problems with his right wrist for couple months. He related to a new baby that he has and has been holding. But he is afraid he might drop her. He has pain in the right wrist going out to his thumb index and middle finger on the volar side. It bothers him a lot and has been waking him up 3 or 4 times a night for the past few nights. No trauma. He is not working now so he is not doing anything specifically to hurt the wrist. He has history of carpal tunnel in the left but got significant improvement with a brace. He never required surgery. [facility] Medical History Anxiety Bipolar disorder Depression Diabetes Migraines Smoker Substance abuse TTP (thrombotic thrombocytopenic purpura) Home Medications lamotrigine 200 mg tablet 200 mg PO QHS 02/01/21 [History Last Taken Unknown] quetiapine 400 mg tablet,extended release 24 hr 400 mg PO QHS 02/01/21 [History Last Taken Unknown] insulin lispro 100 unit/mL subcutaneous pen (Humalog KwikPen (U-100) Insulin) 10 unit (0.1 mL) subcut TIDCM #15 mL 06/19/21 [Rx Last Taken Unknown] buspirone 10 mg tablet 10 mg PO TID 09/30/21 [History Last Taken Unknown] insulin glargine 100 unit/mL (3 mL) subcutaneous pen (Lantus Solostar U-100 Insulin) 30 unit subcut BID 09/30/21 [History Last Taken Unknown] dulaglutide 0.75 mg/0.5 mL subcutaneous pen injector (Trulicity) 0.75 mg subcut QWEEK 01/06/22 [History Last Taken Unknown] cyclobenzaprine 10 mg tablet 10 mg PO BID PRN muscle spasm #10 tabs 01/13/22 [Rx Last Taken Unknown] Allergy/AdvReac Type Severity Reaction Status Date / Time adhesive Allergy Rash Verified 01/13/22 14:59 dicyclomine HCl [From Bentyl] Allergy Hives Verified 01/13/22 14:59 fentanyl Allergy Hives Verified 01/13/22 14:59 Latex, Natural Rubber Allergy Rash Verified 01/13/22 14:59 methadone Allergy Other Verified 01/13/22 14:59 morphine Allergy Swelling Verified 01/13/22 14:59 prednisone Allergy Rash Verified 01/13/22 14:59 tramadol HCl [From Ultram] Allergy Hives Verified 01/13/22 14:59 aspirin AdvReac Other Verified 01/13/22 14:59 ketorolac tromethamine AdvReac Upset Verified 01/13/22 14:59 [From Toradol] Stomach Family History Other Diabetes Surgical History H/O eye surgery Social History household members: spouse Smoking Status: Current every day smoker tobacco type: cigarettes substance use type: former substance user ROS ROS ED Constitutional Constitutional ED: Denies fever(s) Musculoskeletal Musculoskeletal: Reports other Details: See history of present illness. ; Denies neck pain Integumentary Denies rash Neurologic Neurologic: Reports paresthesias; Denies weakness Endocrine Endocrinology: Denies polydipsia or polyuria Hematologic/Lymphatic Hematologic/Lymphatic: Denies easy bleeding, easy bruising or lymphadenopathy Allergic/Immunologic Allergic/Immunologic ED: Denies urticaria EXAM Physical Exam Const Vital Signs: 10/09/22 04:31 Temperature 98.8 F Temperature Source Temporal Pulse Rate 99 Respiratory Rate 20 H Blood Pressure 141/95 H Blood Pressure Mean 110 Pulse Ox 98 Oxygen Delivery Method Room Air Positive well nourished and well developed General Appearance ED: well developed and NAD HEENT atraumatic Resp normal respiratory effort Back/Spine Back/Spine Narrative: No pain with range of motion. Extremity normal to inspection Extremity Narrative: No visual abnormality. However he has a positive both Phalen's and Tinel's test on his right wrist. He describes paresthesias and pains in typical pattern of the median nerve. There is no weakness on exam. He has excellent radial and ulnar pulses with normal Donavon's and reverse Donavon's. No sign of vascular abnormality. Neuro Neuro Narrative: See above. Psych mental status grossly normal Skin Lesions: no lesions Rashes: no rashes MDM MDM MDM Narrative Medical decision making narrative: Patient has history of, exam consistent with carpal tunnel. He got good benefit from splint. I will see if we have a cock up splint available here. If not we will make a custom splint. Tylenol and rest should be appropriate. He has allergies to most pain medicines but I think Tylenol splint and ice should be appropriate. Discharge Plan Triage Chief Complaint: Upper Extremity Injury ED Provider: Darrell Gusman Dx/Rx/DC Orders Clinical Impression: Acute carpal tunnel syndrome of right wrist Instructions: ED Carpal Tunnel Syndrome Prescriptions: No Action lamotrigine 200 MG tablet 200 mg PO QHS quetiapine 400 MG tablet extended release 24 hr 400 mg PO QHS insulin lispro [Humalog KwikPen Insulin] 100 unit/mL Insulin Pen 10 unit subcut TIDCM Qty: 15 0RF Rx Instructions: 10 units with small meal, 20 units with large meal buspirone 10 mg tablet 10 mg PO TID Label Comments: TAKE 1 TABLET BY MOUTH THREE TIMES DAILY NEEDED Lantus Solostar U-100 Insulin 100 unit/mL (3 mL) insulin pen 30 unit subcut BID Trulicity 0.75 mg/0.5 mL pen injector 0.75 mg SUBCUT QWEEK cyclobenzaprine 10 mg tablet 10 mg PO BID PRN (Reason: muscle spasm) Qty: 10 0RF Primary Care Provider: LONNIE MILLER Referrals: LONNIE MILLER [Other] - As soon as possible Disposition Disposition: Home, Self Care
== END 2022-10-09 04:51 | disposition home or self-care (01) ==
LOC: ED 04:49
PROVIDERS: Emergency Provider Emergency Medicine; Visit Provider Emergency Medicine
DX: G56.01 Carpal tunnel syndrome, right upper limb (principal); F17.210 Nicotine dependence, cigarettes, uncomplicated
CPT/HCPCS: 99282

== ENCOUNTER 2022-10-18 04:20 | Emergency (ER) | payer OTHER, MEDICAID, SELFPAY ==
[2022-10-18 04:21] VITALS: BP 144/93; PULSE 101; RESP 15; TEMP 36.4; O2SAT 95; BMI 42.3
--- NOTE | 2022-10-18 04:37 | EDS_ITS ---
HPI History of Present Illness Chief Complaint: Itching Detail of Chief Complaint: Abscess on neck. Informant: patient Onset/Context/Timing Onset: Yesterday Context: Gradual Onset Timing: Continuous Current Severity: Mild Maximum Severity: Mild Narrative Narrative: 42-year-old male who is diabetic. States his blood sugars been running well yesterday his blood sugar is around 130. States that he has noticed 2 bumps on his right posterior neck that are tender to palpation. He is concerned that they might need drained. No fever or chills. No other complaints. Prior similar symptoms: Yes Recent Illness/Hospitalization: No PFSH PFS Medical History Anxiety Bipolar disorder Depression Diabetes Migraines Smoker Substance abuse TTP (thrombotic thrombocytopenic purpura) Home Medications lamotrigine 200 mg tablet 200 mg PO QHS 02/01/21 [History Last Taken Unknown] quetiapine 400 mg tablet,extended release 24 hr 400 mg PO QHS 02/01/21 [History Last Taken Unknown] insulin lispro 100 unit/mL subcutaneous pen (Humalog KwikPen (U-100) Insulin) 10 unit (0.1 mL) subcut TIDCM #15 mL 06/19/21 [Rx Last Taken Unknown] buspirone 10 mg tablet 10 mg PO TID 09/30/21 [History Last Taken Unknown] insulin glargine 100 unit/mL (3 mL) subcutaneous pen (Lantus Solostar U-100 Insulin) 30 unit subcut BID 09/30/21 [History Last Taken Unknown] dulaglutide 0.75 mg/0.5 mL subcutaneous pen injector (Trulicity) 0.75 mg subcut QWEEK 01/06/22 [History Last Taken Unknown] cyclobenzaprine 10 mg tablet 10 mg PO BID PRN muscle spasm #10 tabs 01/13/22 [Rx Last Taken Unknown] cephalexin 500 mg capsule 500 mg PO Q6 #30 caps 10/18/22 [Rx Last Taken Unknown] Allergy/AdvReac Type Severity Reaction Status Date / Time adhesive Allergy Rash Verified 10/18/22 04:23 dicyclomine HCl [From Bentyl] Allergy Hives Verified 10/18/22 04:23 fentanyl Allergy Hives Verified 10/18/22 04:23 Latex, Natural Rubber Allergy Rash Verified 10/18/22 04:23 methadone Allergy Other Verified 10/18/22 04:23 morphine Allergy Swelling Verified 10/18/22 04:23 prednisone Allergy Rash Verified 10/18/22 04:23 tramadol HCl [From Ultram] Allergy Hives Verified 10/18/22 04:23 aspirin AdvReac Other Verified 10/18/22 04:23 ketorolac tromethamine AdvReac Upset Verified 10/18/22 04:23 [From Toradol] Stomach Family History Other Diabetes Surgical History H/O eye surgery Social History household members: spouse Smoking Status: Current every day smoker tobacco type: cigarettes substance use type: former substance user ROS ROS ED ROS Narrative Denies recent illness. Review of Systems ROS Unobtainable: Denies due to encephalopathy Constitutional Constitutional ED: Denies chills or fever(s) ENT ENT ED: Denies ear pain Cardiovascular Cardiovascular: Denies chest pain Respiratory/Chest Respiratory/Chest: Denies cough or dyspnea Gastrointestinal Gastrointestinal: Denies abdominal pain Genitourinary Genitourinary ED: Denies dysuria or hematuria Musculoskeletal Musculoskeletal: Denies arthralgias Integumentary Reports abscess; Denies Abrasions Neurologic Neurologic: Denies headache(s) Psychiatric Psychiatric: Denies anxiety Endocrine Endocrinology: Denies cold intolerance Hematologic/Lymphatic Hematologic/Lymphatic: Reports none Allergic/Immunologic Allergic/Immunologic ED: Denies mouth swelling or tongue swelling EXAM Physical Exam Narrative Exam Narrative: 42-year-old male no acute distress. Vital signs are stable afebrile. H EENT exam unremarkable. Neck posterior aspect right side and midline posteriorly there are 2 very small abscesses. They are not fluctuant. Most likely ingrown hairs. Nothing to drain at this time. No surrounding cellulitis. Mildly tender. No lymphadenopathy. Nothing to drain at this time. Lungs clear. Heart regular rhythm. Abdomen soft. Otherwise exam unremarkable. Const Vital Signs: 10/18/22 04:21 Temperature 97.5 F L Temperature Source Temporal Pulse Rate 101 H Respiratory Rate 15 Blood Pressure 144/93 H Blood Pressure Mean 110 Pulse Ox 95 Oxygen Delivery Method Room Air Positive well nourished, well developed and obese; Negative for cachectic, contractures or unkempt General Appearance ED: well developed and NAD; Negative for unkempt, cachectic, contractures, cyanotic, diaphoretic or pallor Nutritional Appearance: obese; Negative for cachectic HEENT Reports moist mucous membranes; Denies dry mucous membranes Negative for trauma or tenderness Mouth ED: No dry mucous membranes Mouth: No dry mucous membranes Eyes PERRL and EOMs intact bilaterally General Eye ED: Negative for pale conjunctiva or scleral icterus Neck no lymphadenopathy, supple and no JVD Neck Narrative: 2 small abscesses posterior neck. No lymphadenopathy. No cellulitis. No fluctuance. Not large enough to drain at this time. General: tenderness Chest Wall inspection of chest normal and palpation of chest normal Chest: Negative for other Resp normal respiratory effort and clear to auscultation bilaterally Effort and Inspection: Negative for retractions Auscultation: Negative for rales, rhonchi or wheezes Cardio regular rate, regular rhythm, S1 normal heart sound, S2 normal heart sound and no murmurs Rate: Negative for bradycardia or tachycardic Rhythm: Negative for abnormal rhythm GI normal to inspection, nondistended, normoactive bowel sounds, non-tender, non- distended and no masses Inspection: Negative for abdominal distention Auscultation: normoactive bowel sounds Palpation: soft; Negative for tender or guarding Back/Spine no CVA tenderness Extremity normal to inspection General Extremety ED: Negative for edema or tenderness General Extremity: Negative for edema Neuro oriented x3 Sensorium / Orientation: Negative for orientation impaired, lethargic or stuporous Motor Exam: strength 5/5 throughout Psych mental status grossly normal Appearance: Negative for unkempt Attitude: No agitated Mood & Affect: Negative for depressed, anxious or tearful Skin no rashes or lesions noted, no wounds and skin turgor normal Skin Narrative: 2 small abscesses posterior neck. General Skin Exam: elasticity normal; Negative for jaundice or pallor Lesions: No lesion noted Rashes: No rashes noted Trauma: Negative for abrasion Wounds: Negative for wounds noted MDM MDM MDM Narrative Medical decision making narrative: 42-year old diabetic male with small abscesses on his neck. Will be started on Keflex 500 4 times daily for 7 days. Warm compresses. Return if they get larger to be drained. At this time there would be no benefit in draining them. Discharge Plan Triage Chief Complaint: Itching ED Provider: Surjit Zee Dx/Rx/DC Orders Clinical Impression: Abscess, History of diabetes mellitus Instructions: ED Abscess Antibiotic Treatment Only Prescriptions: New cephalexin 500 mg capsule 500 mg PO Q6 Qty: 30 0RF No Action lamotrigine 200 MG tablet 200 mg PO QHS quetiapine 400 MG tablet extended release 24 hr 400 mg PO QHS insulin lispro [Humalog KwikPen Insulin] 100 unit/mL Insulin Pen 10 unit subcut TIDCM Qty: 15 0RF Rx Instructions: 10 units with small meal, 20 units with large meal buspirone 10 mg tablet 10 mg PO TID Label Comments: TAKE 1 TABLET BY MOUTH THREE TIMES DAILY NEEDED Lantus Solostar U-100 Insulin 100 unit/mL (3 mL) insulin pen 30 unit subcut BID Trulicity 0.75 mg/0.5 mL pen injector 0.75 mg SUBCUT QWEEK cyclobenzaprine 10 mg tablet 10 mg PO BID PRN (Reason: muscle spasm) Qty: 10 0RF Primary Care Provider: LONNIE MILLER Referrals: LONNIE MILLER [Other] (1 week if not improving.) Activity Restrictions/Additional Instructions: You have 2 small abscesses on the back your neck. They are too small to drain at this time. If they get significantly larger about the size of a quarter return and we can drain them. Warm compresses to the area. Motrin and Tylenol for pain. The antibiotic Keflex 1 pill 4 times a day till gone. Disposition Disposition: Home, Self Care
[2022-10-18] MEDS: Cephalexin 250 MG Capsule 500 MG PO (04:40)
== END 2022-10-18 04:45 | disposition home or self-care (01) ==
PROVIDERS: Emergency Provider Emergency Medicine; Visit Provider Emergency Medicine
DX: L02.11 Cutaneous abscess of neck (principal); E11.9 Type 2 diabetes mellitus without complications; F17.210 Nicotine dependence, cigarettes, uncomplicated; E66.9 Obesity, unspecified
CPT/HCPCS: 99283

== ENCOUNTER 2023-01-23 23:18 | Emergency (ER) | payer OTHER, MEDICAID, SELFPAY ==
[2023-01-23 23:23] VITALS: TEMP -17.7; TEMP 0; BMI 43.1
--- NOTE | 2023-01-23 23:28 | ED.RN ---
PT REFUSING TO GIVE MEDICAL INFORMATION OR SHARE WHY HE IS HERE. PT STATES I AM HERE AGAINST MY WILL. PD AT TRIAGE NURSES STATION.
--- NOTE | 2023-01-23 23:34 | ED.RN ---
PATIENT PINK SLIPPED BY PD
[2023-01-24 01:30] LABS: Absolute Neutrophil Count 5.6 X10^3/uL (2.0-7.7); Basophil# 0.08 X10^3/uL; Basophil% 0.9 % (0-1); Eosinophil# 0.36 X10^3/uL; Eosinophils% 4.1 % (0-5); Hematocrit 48.7 % (40-54); Hemoglobin 16.1 g/dL (13.0-16.5); Lymphocyte % 23.7 % (19-41); Mean Corp Hgb Conc 33.1 g/dL (32-36); Mean Corpuscular Hgb 29.5 pg (27.0-32.0); Mean Corpuscular Volume 89.2 fL (80-94); Mean Platelet Vol. 9.3 fl (6.2-12.0); Monocyte% 7.9 % (0-10); NRBC Flagged by Analyzer 0 % (0-5); Neutrophil # 5.57 X10^3/uL (2.7-7.7); Neutrophil % 62.9 % (47-70); Platelet Count 278 K/mm3 (150-450); RBC Distribution Width CV 13.5 % (11.6-14.6); RBC Distribution Width SD 43.9 fl (35.1-43.9); Red Blood Count 5.46 M/mm3 (4.6-6.2); White Blood Count 8.9 K/mm3 (4.4-11.0)
[2023-01-24 01:49] LABS: Alcohol, Blood (Medical)-Serum < 3.0 mg/dL
[2023-01-24 01:50] LABS: Anion Gap 5 (5-15); BUN 10 mg/dL (7-18); BUN/Creat Ratio 11.6 RATIO (10-20); Calcium,Total 8.8 mg/dL (8.5-10.1); Chloride 106 mmol/L (98-107); Creatinine, Serum 0.86 mg/dL (0.70-1.30); EST Glomerular Filtration Rate 103 mL/min (>60); Est Glom Filt Rate - Afr Amer 125 mL/min (>60); Estimated Creatinine Clearance 113.04 ml/min; Glucose 139 mg/dL (74-106); Potassium 3.3 mmol/L (3.5-5.1); Sodium Level 136 mmol/L (136-145)
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
[2023-01-24 04:27] LABS: Amphetamine Urine VISTA POSITIVE (<1000 ng/mL); Barbiturate Urine VISTA NEGATIVE (< 200 ng/mL); Benzodiazepine Urine VISTA NEGATIVE (< 200 ng/mL); Cocaine Urine VISTA NEGATIVE (< 300 ng/mL); Ecstacy Urine VISTA NEGATIVE (< 500 ng/mL); Methadone Urine VISTA NEGATIVE (< 300 ng/mL); PCP Urine VISTA NEGATIVE (< 25 ng/mL); THC Urine VISTA POSITIVE (< 50 ng/mL); Vista UDS pH Range 6
[2023-01-24 05:22] VITALS: RESP 16
== END 2023-01-24 07:43 | disposition home or self-care (01) ==
PROVIDERS: Emergency Provider Emergency Medicine; Visit Provider Emergency Medicine
DX: F41.9 Anxiety disorder, unspecified (principal); F17.210 Nicotine dependence, cigarettes, uncomplicated
CPT/HCPCS: 80048; 80307; 82077; 85025; 99284

== ENCOUNTER 2023-05-23 10:48 | Emergency (ER) | payer OTHER, MEDICAID, SELFPAY ==
[2023-05-23 10:49] VITALS: BP 136/105; PULSE 85; RESP 18; TEMP 35.9; O2SAT 97; BMI 41.5
--- NOTE | 2023-05-23 11:00 | CT_ITS ---
STUDY: CT ABDOMEN AND PELVIS WITHOUT CONTRAST REASON FOR EXAM: Male, 43 years old. Left flank pain RADIATION DOSAGE (If Supplied By Facility): CTDIvol = ( 22.62 ) mGy, DLP = ( 1202.10 ) mGycm TECHNIQUE: Transaxial images were obtained from the dome of the diaphragm to the symphysis pubis without oral contrast, and without intravenous contrast. Sagittal and coronal images were reconstructed. Individualized dose optimization techniques were used for this CT. COMPARISON: None. FINDINGS: The visualized lung bases are unremarkable. The visualized portions of the heart are within normal limits. Normal liver. Normal gallbladder and extrahepatic biliary system. Normal spleen. Normal pancreas. Normal bilateral adrenal glands. Normal right kidney. Normal left kidney. Normal visualized stomach. Normal small intestine. Normal colon. The appendix is visualized and appears normal. There is scattered atherosclerotic calcification of the abdominal aorta, without a demonstrated aneurysm. Normal inferior vena cava. There is borderline retroperitoneal lymphadenopathy with enlarged nodes no greater than 10mm in the short axis diameter. Normal urinary bladder. There is a small umbilical hernia containing fat. Normal osseous structures. CT/Abdomen/Pelvis without Cont IMPRESSION: Normal unenhanced CT of the abdomen and pelvis. Electronically Signed: Madi Harley MD at 12:12 EDT ,
--- NOTE | 2023-05-23 11:03 | EDS_ITS ---
HPI History of Present Illness Chief Complaint: Flank Pain Detail of Chief Complaint: Left-sided back pain Informant: patient Narrative Narrative: Patient presents with left-sided back pain that has had for 3 days. Patient denies any injury or lifting. He denies pain radiating down his leg. No abdominal pain. He had no nausea or vomiting. He denies urinary symptoms. No history of kidney stones. He rates his pain an 8 out of 10. Pain is positional at times with just cannot get comfortable. Patient has history of TTP. [facility] Medical History Anxiety Bipolar disorder Depression Diabetes Migraines Smoker Substance abuse TTP (thrombotic thrombocytopenic purpura) Home Medications lamotrigine 200 mg tablet 200 mg PO QHS 02/01/21 [History Last Taken Unknown] quetiapine 400 mg tablet,extended release 24 hr 400 mg PO QHS 02/01/21 [History Last Taken Unknown] insulin lispro 100 unit/mL subcutaneous pen (Humalog KwikPen (U-100) Insulin) 10 unit (0.1 mL) subcut TIDCM #15 mL 06/19/21 [Rx Last Taken Unknown] buspirone 10 mg tablet 10 mg PO TID 09/30/21 [History Last Taken Unknown] insulin glargine 100 unit/mL (3 mL) subcutaneous pen (Lantus Solostar U-100 Insulin) 30 unit subcut BID 09/30/21 [History Last Taken Unknown] dulaglutide 0.75 mg/0.5 mL subcutaneous pen injector (Trulicity) 0.75 mg subcut QWEEK 01/06/22 [History Last Taken Unknown] cyclobenzaprine 10 mg tablet 10 mg PO BID PRN muscle spasm #10 tabs 01/13/22 [Rx Last Taken Unknown] cephalexin 500 mg capsule 500 mg PO Q6 #30 caps 10/18/22 [Rx Last Taken Unknown] cyclobenzaprine 10 mg tablet 10 mg PO TID PRN Muscle Spasm #20 TABLETS 05/23/23 [Rx Last Taken Unknown] hydrocodone-acetaminophen 5-325mg 5mg-325mg 1 tab PO Q4H PRN PRN Pain 2 days #10 TABLETS 05/23/23 [Rx Last Taken Unknown] Allergy/AdvReac Type Severity Reaction Status Date / Time adhesive Allergy Rash Verified 05/23/23 10:49 dicyclomine HCl [From Bentyl] Allergy Hives Verified 05/23/23 10:49 fentanyl Allergy Hives Verified 05/23/23 10:49 Latex, Natural Rubber Allergy Rash Verified 05/23/23 10:49 methadone Allergy Other Verified 05/23/23 10:49 morphine Allergy Swelling Verified 05/23/23 10:49 prednisone Allergy Rash Verified 05/23/23 10:49 tramadol HCl [From Ultram] Allergy Hives Verified 05/23/23 10:49 aspirin AdvReac Other Verified 05/23/23 10:49 ketorolac tromethamine AdvReac Upset Verified 05/23/23 10:49 [From Toradol] Stomach Family History Other Diabetes Surgical History H/O eye surgery Social History household members: spouse Smoking Status: Current every day smoker tobacco type: cigarettes substance use type: former substance user ROS ROS ED Review of Systems ROS Unobtainable: other Constitutional Constitutional ED: Reports lethargy; Denies chills, fever(s), sweats or weight loss Eyes Eyes: Denies blurry vision, change in vision or diplopia ENT ENT ED: Denies rhinorrhea or sore throat Cardiovascular Cardiovascular: Denies chest pain, orthopnea or racing heartbeat Respiratory/Chest Respiratory/Chest: Denies cough, dyspnea, dyspnea on exertion, orthopnea or sputum Gastrointestinal Gastrointestinal: Denies abdominal pain, diarrhea, nausea or vomiting Genitourinary Genitourinary ED: Denies dysuria, hematuria or urinary frequency Musculoskeletal Musculoskeletal: Reports back pain; Denies arthralgias, myalgias or neck pain Integumentary Denies abscess, Abrasions or rash Neurologic Neurologic: Denies headache(s) or weakness Psychiatric Psychiatric: Denies anxiety, depression or suicidal thoughts Endocrine Endocrinology: Denies polydipsia, polyphagia or polyuria Hematologic/Lymphatic Hematologic/Lymphatic: Denies easy bleeding, easy bruising or lymphadenopathy Allergic/Immunologic Allergic/Immunologic ED: Denies mouth swelling, tongue swelling or urticaria EXAM Physical Exam Const Vital Signs: 05/23/23 10:49 05/23/23 12:49 Temperature 96.7 F L Temperature Source Temporal Pulse Rate 85 68 Respiratory Rate 18 14 Blood Pressure 136/105 H 134/91 H Blood Pressure Mean 115 Pulse Ox 97 98 Oxygen Delivery Method Room Air Positive well nourished and well developed General Appearance ED: well developed and NAD HEENT Reports TM's clear and moist mucous membranes normocephalic and atraumatic; Negative for trauma or tenderness Tympanic Membrane ED: Yes TM's clear Eyes PERRL and EOMs intact bilaterally General Eye ED: Negative for pale conjunctiva or scleral icterus Neck no lymphadenopathy, supple and no JVD General: Negative for tenderness Chest Wall inspection of chest normal and palpation of chest normal Chest: Negative for tenderness Resp normal respiratory effort and clear to auscultation bilaterally Effort and Inspection: Negative for respiratory distress or pain with movement Auscultation: Negative for rhonchi, wheezes or diminished lung sounds Cardio regular rate, regular rhythm, S1 normal heart sound, S2 normal heart sound and no murmurs Peripheral Pulses: pulses 2+ throughout GI normal to inspection, nondistended, normoactive bowel sounds, soft to palpation, non-tender, non-distended and no masses Back/Spine no thoracic nor lumbar tenderness Back/Spine Narrative: Patient with tenderness over the lumbar paraspinal musculature on the left. No significant bony tenderness over the thoracic or lumbar spine. Negative straight leg raises. Deep tendon reflexes plus 2 out of 4 bilaterally at the patella and Achilles. Patient has normal L5 extension bilaterally. Extremity normal to inspection General Extremety ED: Negative for edema General Extremity: Negative for edema Neuro oriented x3, CN's II-XII intact bilaterally, no sensory deficits noted and gait normal Sensorium / Orientation: awake, alert, oriented to person, oriented to place and oriented to time Motor Exam: strength 5/5 throughout and strength abnormal Psych mental status grossly normal Skin no rashes or lesions noted and no wounds MDM MDM MDM Narrative Medical decision making narrative: Patient with left-sided back/flank pain. Patient will be medicated with Dilaudid and Zofran. Will obtain a urinalysis as well as basic labs and a CT flank to rule out kidney stone. It is possible this pain is muscular. Patient had a CBC with differential that was normal. Chemistries unremarkable. CT flank showed nothing acute. Patient could not give a urine sample but clinically I do not feel his exam consistent with UTI. Will cancel urinalysis. Patient given a prescription for Flexeril and a few [place] for pain. He is advised to follow-up with his primary care physician within next 5 to 7 days. Patient to return if worsening pain, weakness in extremities, change in bowel or bladder function, or condition should worsen anyway. Lab Data Attestation: I reviewed the patient's lab results. Labs: Laboratory Results - last 24 hr 05/23/23 11:10 WBC 7.7 RBC 5.89 Hgb 17.4 H Hct 53.5 MCV 90.8 MCH 29.5 MCHC 32.5 RDW Std Deviation 47.0 H RDW Coeff of Serafin 14.1 Plt Count 282 MPV 9.2 Immature Gran % (Auto) 0.500 Neut % (Auto) 55.7 Lymph % (Auto) 28.4 [place] % (Auto) 7.5 Eos % (Auto) 6.9 H Baso % (Auto) 1.0 Absolute Neuts (auto) 4.3 Absolute Lymphs (auto) 2.19 Nucleated RBC % 0 Sodium 137 Potassium 3.9 Chloride 106 Carbon Dioxide 25.0 Anion Gap 6 BUN 8 Creatinine 0.93 Estim Creat Clear Calc 103.47 Est GFR (MDRD) Af Amer 115 Est GFR (MDRD) Non-Af 95 BUN/Creatinine Ratio 8.6 L Glucose 158 H Calcium 9.1 Radiography Diagnostic Testing: Clinical Impression(s) from Imaging Studies Abdomen/Pelvis CT 05/23/23 11:00 IMPRESSION: Normal unenhanced CT of the abdomen and pelvis. Electronically Signed: Madi Harley MD at 12:12 EDT , Discharge Plan Triage Chief Complaint: Flank Pain Other Complaint: Back ED Provider: Jo Dumont Dx/Rx/DC Orders Clinical Impression: Back pain Instructions: ED Back Spasm, No Trauma Prescriptions: New cyclobenzaprine [cyclobenzaprine] 10 mg tablet 10 mg PO TID PRN (Reason: Muscle Spasm) Qty: 20 0RF hydrocodone-acetaminophen [hydrocodone-acetaminophen] 5-325 mg tablet 1 tab PO Q4H PRN PRN (Reason: Pain) 2 Days Qty: 10 0RF No Action lamotrigine 200 MG tablet 200 mg PO QHS quetiapine 400 MG tablet extended release 24 hr 400 mg PO QHS insulin lispro [Humalog KwikPen Insulin] 100 unit/mL Insulin Pen 10 unit subcut TIDCM Qty: 15 0RF Rx Instructions: 10 units with small meal, 20 units with large meal buspirone 10 mg tablet 10 mg PO TID Patient Comments: TAKE 1 TABLET BY MOUTH THREE TIMES DAILY NEEDED Lantus Solostar U-100 Insulin 100 unit/mL (3 mL) insulin pen 30 unit subcut BID Trulicity 0.75 mg/0.5 mL pen injector 0.75 mg SUBCUT QWEEK cyclobenzaprine 10 mg tablet 10 mg PO BID PRN (Reason: muscle spasm) Qty: 10 0RF cephalexin 500 mg capsule 500 mg PO Q6 Qty: 30 0RF Primary Care Provider: Care Physician,No Primary Referrals: NOT,DEFINED [Non-Staff] - Disposition Disposition: Home, Self Care Discharge Date/Time: 05/23/23 12:53
[2023-05-23] MEDS: Ondansetron 4 MG/2 ML Vial IV (11:09)
[2023-05-23] MEDS: HYDROmorphone 1 MG/ML Syringe IV (11:09)
[2023-05-23 11:18] LABS: Absolute Lymphocyte Count 2.19 X10^3/uL (0.83-4.51); Absolute Neutrophil Count 4.3 X10^3/uL (2.0-7.7); Basophil# 0.08 X10^3/uL; Eosinophil# 0.53 X10^3/uL; Eosinophils% 6.9 % (0-5); Hematocrit 53.5 % (40-54); Hemoglobin 17.4 g/dL (13.0-16.5); Lymphocyte # 2.19 X10^3/ul (0.83-4.51); Lymphocyte % 28.4 % (19-41); Mean Corp Hgb Conc 32.5 g/dL (32-36); Mean Corpuscular Hgb 29.5 pg (27.0-32.0); Mean Corpuscular Volume 90.8 fL (80-94); Mean Platelet Vol. 9.2 fl (6.2-12.0); Monocyte# 0.58 X10^3/uL; Monocyte% 7.5 % (0-10); NRBC Flagged by Analyzer 0 % (0-5); Neutrophil # 4.29 X10^3/uL (2.7-7.7); Neutrophil % 55.7 % (47-70); Platelet Count 282 K/mm3 (150-450); RBC Distribution Width CV 14.1 % (11.6-14.6); Red Blood Count 5.89 M/mm3 (4.6-6.2); White Blood Count 7.7 K/mm3 (4.4-11.0)
[2023-05-23 11:31] LABS: Anion Gap 6 (5-15); BUN 8 mg/dL (7-18); BUN/Creat Ratio 8.6 RATIO (10-20); Calcium,Total 9.1 mg/dL (8.5-10.1); Chloride 106 mmol/L (98-107); Creatinine, Serum 0.93 mg/dL (0.70-1.30); EST Glomerular Filtration Rate 95 mL/min (>60); Est Glom Filt Rate - Afr Amer 115 mL/min (>60); Estimated Creatinine Clearance 103.47 ml/min; Glucose 158 mg/dL (74-106); Potassium 3.9 mmol/L (3.5-5.1); Sodium Level 137 mmol/L (136-145)
[2023-05-23 12:49] VITALS: BP 134/91; PULSE 68; RESP 14; O2SAT 98
== END 2023-05-23 12:53 | disposition home or self-care (01) ==
PROVIDERS: Emergency Provider Emergency Medicine; Visit Provider Emergency Medicine
DX: M54.9 Dorsalgia, unspecified (principal); F17.210 Nicotine dependence, cigarettes, uncomplicated
CPT/HCPCS: 74176; 80048; 85025; 96374; 96375; 99283; J7030; A4216; J2405

== ENCOUNTER 2023-10-29 13:09 | Emergency (ER) | payer OTHER, MEDICAID, SELFPAY ==
[2023-10-29 13:09] VITALS: BP 128/72; PULSE 92; RESP 18; TEMP 35.9; O2SAT 99; BMI 41.6
--- NOTE | 2023-10-29 13:25 | EDS_ITS ---
HPI <ALBIN Antoine - Last Filed: 10/29/23 13:47> History of Present Illness Chief Complaint: Upper Extremity Injury Narrative Narrative: 43-year-old male is having a flare up of his right carpal tunnel syndrome over the last couple days. Pain is focused at the wrist and radiates into the mid palm and slightly up the forearm. It is worse with movement. He states he has been playing and picking up his young daughter which might have aggravated it. He has no weakness or paresthesias. No trauma. He had this issue in the past and used a brace but states he lost it. He is right hand dominant. [facility] <ALBIN Antoine - Last Filed: 10/29/23 13:47> [facility] Medical History Anxiety Bipolar disorder Depression Diabetes Migraines Smoker Substance abuse TTP (thrombotic thrombocytopenic purpura) Home Medications lamotrigine 200 mg tablet 200 mg PO QHS 02/01/21 [History Last Taken Unknown] quetiapine 400 mg tablet,extended release 24 hr 400 mg PO QHS 02/01/21 [History Last Taken Unknown] insulin lispro 100 unit/mL subcutaneous pen (Humalog KwikPen (U-100) Insulin) 10 unit (0.1 mL) subcut TIDCM #15 mL 06/19/21 [Rx Last Taken Unknown] buspirone 10 mg tablet 10 mg PO TID 09/30/21 [History Last Taken Unknown] insulin glargine 100 unit/mL (3 mL) subcutaneous pen (Lantus Solostar U-100 Insulin) 30 unit subcut BID 09/30/21 [History Last Taken Unknown] dulaglutide 0.75 mg/0.5 mL subcutaneous pen injector (Trulicity) 0.75 mg subcut QWEEK 01/06/22 [History Last Taken Unknown] cyclobenzaprine 10 mg tablet 10 mg PO BID PRN muscle spasm #10 tabs 01/13/22 [Rx Last Taken Unknown] cephalexin 500 mg capsule 500 mg PO Q6 #30 caps 10/18/22 [Rx Last Taken Unknown] cyclobenzaprine 10 mg tablet 10 mg PO TID PRN Muscle Spasm #20 TABLETS 05/23/23 [Rx Last Taken Unknown] hydrocodone-acetaminophen 5-325mg 5mg-325mg 1 tab PO Q4H PRN PRN Pain 2 days #10 TABLETS 05/23/23 [Rx Last Taken Unknown] hydrocodone-acetaminophen 5-325mg 5mg-325mg 1 tab PO Q6H PRN PRN Pain 1 day #4 TABLETS 10/29/23 [Rx Last Taken Unknown] Allergy/AdvReac Type Severity Reaction Status Date / Time adhesive Allergy Rash Verified 10/29/23 13:09 dicyclomine HCl [From Bentyl] Allergy Hives Verified 10/29/23 13:09 fentanyl Allergy Hives Verified 10/29/23 13:09 Latex, Natural Rubber Allergy Rash Verified 10/29/23 13:09 methadone Allergy Other Verified 10/29/23 13:09 morphine Allergy Swelling Verified 10/29/23 13:09 prednisone Allergy Rash Verified 10/29/23 13:09 tramadol HCl [From Ultram] Allergy Hives Verified 10/29/23 13:09 aspirin AdvReac Other Verified 10/29/23 13:09 ketorolac tromethamine AdvReac Upset Verified 10/29/23 13:09 [From Toradol] Stomach Family History Other Diabetes Surgical History H/O eye surgery Social History household members: spouse Smoking Status: Current every day smoker tobacco type: cigarettes substance use type: former substance user ROS <ALBIN Antoine - Last Filed: 10/29/23 13:47> ROS ED ROS Narrative Neuro: Negative for motor/sensory dysfunction. Skin: Negative for rash, abscess, or wound. Musc: Positive for right wrist pain. No trauma. EXAM <ALBIN Antoine - Last Filed: 10/29/23 13:47> Physical Exam Narrative Exam Narrative: CONST: Patient sitting in no acute distress. EYES: Normal inspection. NECK: Normal inspection. SKIN: Color normal, no rash, warm, dry, intact. EXTREMITIES: Normal appearance of bilateral upper extremities. Tender palpation with tapping of over right volar wrist reproduces pain. No bony tenderness or deformity, full range of motion of all joints, normal motor and sensory function median radial ulnar distributions, 2+ radial pulse and brisk cap refill. Soft compartments. NEURO: Oriented x4. PSYCH: Normal affect. Const Vital Signs: 10/29/23 13:09 Temperature 96.7 F L Temperature Source Temporal Pulse Rate 92 Respiratory Rate 18 Blood Pressure 128/72 H Blood Pressure Mean 90 Pulse Ox 99 Oxygen Delivery Method Room Air [facility] <ALBIN Antoine - Last Filed: 10/29/23 13:47> [facility] Narrative Medical decision making narrative: Patient has history and clinical exam consistent with right carpal tunnel. Neurovascularly intact. He was given a wrist splint, advised to rest and ice, and take Tylenol. He was given 4 Calvin tablets for breakthrough pain. He has allergies to most other pain medicines and prednisone. He was given orthopedic follow-up and discharged in stable condition. <Dr. Ivon Garcia DO - Last Filed: 10/29/23 13:54> [facility] Narrative Medical decision making narrative: Patient has history and clinical exam consistent with right carpal tunnel. Neurovascularly intact. He was given a wrist splint, advised to rest and ice, and take Tylenol. He was given 4 Calvin tablets for breakthrough pain. He has allergies to most other pain medicines and prednisone. He was given orthopedic follow-up and discharged in stable condition. I have personally performed a face to face assessment of the patient and have reviewed the MITRA Note. I performed a substantive portion of the visit including all aspects of the following. My berrios findings include: History is patient is a 43-year-old male with history of TTP (follows with hematology oncology), diabetes mellitus and carpal tunnel syndrome presenting with worsening right wrist and forearm pain. He is currently in the process of moving and misplaced his splint. He can only take minimal doses of Tylenol and Motrin per his oncologist because of his TTP. He cannot take steroids. He is not sure to also do for pain but states it is quite painful. He does have some numbness of his third and fourth fingers. No acute trauma or injury. No fever or chills reported. Because of patient's limitations on pain control he is given a very short course of Calvin which he is tolerated in the past for pain control. Is given a splint. Counseled importance of elevation and ice as well. Is given orthopedic referral for surgical management. He verbalized agreement understand this plan. Discharged home in stable condition. Do not think he requires imaging at this time as clinically this is carpal tunnel syndrome. Other additions or changes: [None] Discharge Plan Triage Chief Complaint: Upper Extremity Injury ED Midlevel Provider: Batsheva Ca ED Provider: Ivon Garcia Dx/Rx/DC Orders Clinical Impression: Carpal tunnel syndrome, right Instructions: Carpal Tunnel Syndrome, Carpal Tunnel Prevention Tips Prescriptions: New hydrocodone-acetaminophen 5-325 mg tablet 1 tab PO Q6H PRN PRN (Reason: Pain) 1 Days Qty: 4 0RF No Action lamotrigine 200 MG tablet 200 mg PO QHS quetiapine 400 MG tablet extended release 24 hr 400 mg PO QHS insulin lispro [Humalog KwikPen Insulin] 100 unit/mL Insulin Pen 10 unit subcut TIDCM Qty: 15 0RF Rx Instructions: 10 units with small meal, 20 units with large meal buspirone 10 mg tablet 10 mg PO TID Patient Comments: TAKE 1 TABLET BY MOUTH THREE TIMES DAILY NEEDED Lantus Solostar U-100 Insulin 100 unit/mL (3 mL) insulin pen 30 unit subcut BID Trulicity 0.75 mg/0.5 mL pen injector 0.75 mg SUBCUT QWEEK cyclobenzaprine 10 mg tablet 10 mg PO BID PRN (Reason: muscle spasm) Qty: 10 0RF cephalexin 500 mg capsule 500 mg PO Q6 Qty: 30 0RF cyclobenzaprine [cyclobenzaprine] 10 mg tablet 10 mg PO TID PRN (Reason: Muscle Spasm) Qty: 20 0RF hydrocodone-acetaminophen [hydrocodone-acetaminophen] 5-325 mg tablet 1 tab PO Q4H PRN PRN (Reason: Pain) 2 Days Qty: 10 0RF Primary Care Provider: Care Physician,No Primary Referrals: Justino Quintana MD [Med Staff - Active Staff] - Care Physician,No Primary [Primary Care Provider] - Activity Restrictions/Additional Instructions: Ice, wear the brace, and take Tylenol 1000 mg every 6 hours as needed. Follow- up with orthopedics. Use the norco for breakthrough pain. Disposition Disposition: Home, Self Care Discharge Date/Time: 10/29/23 13:52
--- OUTSIDE RECORDS SUMMARY | 2023-10-29 13:36 | XMS RPT_ITS | CCD ---
Author Name Unknown Address [address] [place] [address] Organization [facility] Care Team Providers Care Mechatronics Technician Name Role Phone MIGUEL LOMELI Unavailable Unavailable REFERRING, PHY WO ID~[id number] Unavailable Unava ilable ZAKIA CORRAL Unavailable Unavailable REFERRING, PHY WO ID~[id number] Unavailable Unava ilable EVA KAY Unavailable Unavailable PHYSICIAN, NONE Unavailable Unavailable ZAKIA CORRAL Unavailable Unavailable PHYSICIAN, NONE Unavailable Unavailable PHYSICIAN, NONE Unavailable Unavailable JIMBO YATES Unavailable Unavailable ELEUTERIO HOUSTON Unavailable Unavailable PHYSICIAN, NONE Unavailable Unavailable PEPE CHAVEZ Unavailable Unavailable PHYSICIAN, NONE Unavailable Unavailable BARBIE MELENDEZ Unavailable Unavailable PHYSICIAN, NONE Unavailable Unavailable Bogantz NEUROSURGERY PHYSICIAN-FARM PLANNER, Lonnie Primary Care Provider Bogantz NEUROSURGERY PHYSICIAN-FARM PLANNER, Lonnie Primary Care Provider BOGANTZ, LONNIE Primary Care Unavailable BOGANTZ, LONNIE Referring Unavailable ABDIRAHMAN WHITFIELD Attending Unavailable SONIDO DYER Attending Unavailable BOGANTZ, LONNIE Primary Care Unavailable BOGANTZ, LONNIE Referring Unavailable KATRINASHIRA Referring Unavailable KATRINASHIRA Attending Unavailable BOGANTZ, LONNIE Primary Care Unavailable BOGANTZ, LONNIE Primary Care Unavailable BOGANTZ, LONNIE Referring Unavailable ABDIRAHMAN WHITFIELD Attending Unavailable SONIDO DYER Attending Unavailable BOGANTZ, LONNIE Referring Unavailable BOGANTZ, LONNIE Primary Care Unavailable SELF, SELF Referring Unavailable BOGANTZ, LONNIE Attending Unavailable BOGANTZ, LONNIE Primary Care Unavailable SONIDO DYER Attending Unavailable BOGANTZ, LONNIE Primary Care Unavailable BOGANTZ, LONNIE Referring Unavailable BOGANTZ, LONNIE Primary Care Unavailable BOGANTZ, LONNIE Referring Unavailable CATALANDABDIRAHMAN R Attending Unavailable CATALANDABDIRAHMAN R Attending Unavailable BOGANTZ, LONNIE Primary Care Unavailable BOGANTZ, LONNIE Referring Unavailable SELF, SELF Referring Unavailable BOGANTZ, LONNIE Primary Care Unavailable SELF, SELF Referring Unavailable SHIRA COTA Attending Unavailable BOGANTZ, LONNIE Primary Care Unavailable BOGANTZ, LONNIE Primary Care Unavailable QURESHI, YUCHI Attending Unavailable QURESHI, YUCHI Referring Unavailable BOGANTZ, LONNIE Primary Care Unavailable SONIDO DYER Attending Unavailable BOGANTZ, LONNIE Primary Care Unavailable BOGANTZ, LONNIE Referring Unavailable FARWIGSONIDO Attending Unavailable BOGANTZ, LONNIE Primary Care Unavailable BOGANTZ, LONNIE Referring Unavailable SELF, SELF Referring Unavailable BOGANTZ, LONNIE Attending Unavailable BOGANTZ, LONNIE Primary Care Unavailable QURESHI, YUCHI Attending Unavailable BOGANTZ, LONNIE Primary Care Unavailable QURESHI, YUCHI Referring Unavailable BOGANTZ, LONNIE Primary Care Unavailable QURESHI, YUCHI Attending Unavailable QURESHI, YUCHI Referring Unavailable SONIDO DYER Attending Unavailable BOGANTZ, LONNIE Primary Care Unavailable BOGANTZ, LONNIE Referring Unavailable FARWIGSONIDO Attending Unavailable BOGANTZ, LONNIE Referring Unavailable BOGANTZ, LONNIE Primary Care Unavailable FRAN JARRETT Attending Unavailable BOGANTZ, LONNIE Primary Care Unavailable BOGANTZ, LONNIE Referring Unavailable QURESHI, YUCHI Attending Unavailable BOGANTZ, LONNIE Primary Care Unavailable QURESHI, YUCHI Referring Unavailable Izabela Turner Primary Care Provider [phone] IZABELA TURNER Primary Care Unavailable OK RAI Attending Unavailable GENERIC PROVIDER, NO ASSIGNED PCP Primary Care Unavailable Allergies Allergy Classification Reported Allergen(s) Allergy Type Date of Onset Reaction(s) Facility (17 sources) Aluminum aspirin Drug Allergy 9 [facility] (17 sources) Dicyclomine Drug Allergy 0 Rash [facility] (20 sources) fentaNYL Drug Allergy 3 Nausea Only, Hives [facility] (13 sources) Latex Propensity to adverse reactions to drug 1 [facility] (19 sources) Methadone Drug Allergy 2 Nausea and Vomiting, Hives, Other [facility] Work Phone: (17 sources) Morphine Drug Allergy 0 Rash [facility] (17 sources) predniSONE Drug Allergy 0 Nausea and Vomiting [facility] (17 sources) Propoxyphene Drug Allergy 1 [facility] (19 sources) traMADol Drug Allergy 5 Dyspnea, Hives, Shortness of breath [facility] (17 sources) Aspirin Buffered Propensity to adverse reactions to drug 1 Swelling [facility] (13 sources) *Adhesive Tape Propensity to adverse reactions 9 Rash [facility] (2 sources) Adhesive Tape Drug Allergy 2 Rash [facility] (2 sources) Ketorolac Allergy to substance 2 [facility] (2 sources) Prednisone Allergy to substance 6 Nausea And Vomiting, Rash [facility] (2 sources) Fentanyl And Related Drug Intolerance 6 Hives, Nausea Only [facility] (1 source) ALLERGIES NOT ON FILE; Translations: [ALLERGIES NOT ON FILE] Propensity to adverse reactions (disorder) RUST 2 Repository Medications Current Medications Medication Drug Class(es) Dates Sig (Normalized) Sig (Original) acetaminophen 325 mg / HYDROcodone bitartrate 5 mg oral tablet (2 sources) Opioid Agonist Start: 09-16-2023 End: 09-19-2023 take 1 tablet by mouth every six hours as needed for pain HYDROcodone-acetam inophen ([place]) 5-325 MG tablet Indications: Gluteal abscess Take 1 tablet by mouth every 6 hours as needed for severe pain (7-10) for up to 3 days. 10 tablet 0 09/16/2023 09/19/2023 Active atorvastatin 10 mg oral tablet (12 sources) HMG-CoA Reductase Inhibitor Start: 09-29-2022 take 1 tablet by mouth once daily Atorvastatin 10 MG tablet Indications: Type 2 diabetes mellitus without complication, with long-term current use of insulin Take 1 tablet by mouth daily. 90 tablet 1 09/29/2022 Active Completed/Discontinued Medications Medication Drug Class(es) Dates Sig (Normalized) Sig (Original) acetaminophen 325 mg / oxyCODONE hydrochloride 5 mg oral tablet (2 sources) Opioid Agonist Start: 09-16-2023 End: 09-16-2023 oxyCODONE-acetaminop hen (Percocet) 5-325 MG per tablet 1 tablet cyclobenzaprine hydrochloride 5 mg oral tablet (9 sources) Muscle Relaxant Start: 05-13-2022 End: 07-21-2022 take 1 tablet by mouth three times daily as needed for muscle spasms cyclobenzaprine 5 MG tablet Take 1 tablet by mouth 3 times daily as needed for Muscle spasms for up to 15 days. 45 tablet 0 05/13/2022 07/21/2022 Discontinued (Therapy completed) Problems Active Problems Problem Classification Problem Date Documented Date Episodic/Chronic Acquired foot deformities (1 source) Hammer toe; Translations: [Other hammer toe(s) (acquired), right foot] Chronic Administrative/social admission (2 sources) Unspecified housing or economic circumstance; Translations: [Housing instability] Episodic Anxiety disorders (2 sources) Mixed anxiety and depressive disorder; Translations: [Anxiety disorder, unspecified] Chronic Diabetes mellitus with complications (17 sources) Hyperglycemia due to diabetes mellitus; Translations: [Type 2 diabetes mellitus with hyperglycemia] Onset: 06-20-2021 06-20-2021 Chronic Diabetes mellitus without complication (20 sources) Newly diagnosed diabetes; Translations: [Type 2 diabetes mellitus without complications] Onset: 06-22-2021 06-22-2021 Chronic Other aftercare (1 source) Patient encounter status; Translations: [Encounter for follow-up examination after completed treatment for conditions other than malignant neoplasm] Episodic Other aftercare (2 sources) rn long term care (current) use of insulin; Translations: [correction (current) use of insulin] Onset: 02-13-2023 Episodic Other bone disease and musculoskeletal deformities (2 sources) Exostosis; Translations: [Other specified disorders of bone, ankle and foot] Episodic Other circulatory disease (20 sources) Thrombotic thrombocytopenic purpura; Translations: [TTP (thrombotic thrombocytopenic purpura)] Onset: 09-14-2009 06-20-2021 Chronic Other connective tissue disease (3 sources) Muscle pain; Translations: [Myalgia, unspecified site] Episodic Other connective tissue disease (2 sources) Pain in both feet; Translations: [Pain in right foot] Episodic Other connective tissue disease (2 sources) Chronic pain of right foot; Translations: [Pain in right foot] Episodic Other connective tissue disease (2 sources) Heel pain; Translations: [Pain in left foot] Episodic Other nervous system disorders (19 sources) Chronic pain; Translations: [Other chronic pain] Onset: 11-07-2014 09-22-2021 Chronic Other nervous system disorders (5 sources) Carpal tunnel syndrome; Translations: [Carpal tunnel syndrome, unspecified upper limb] Onset: 09-29-2022 09-29-2022 Chronic Other nervous system disorders (1 source) Carpal tunnel syndrome of right wrist; Translations: [Carpal tunnel syndrome, right upper limb] Chronic Other nervous system disorders (2 sources) Carpal tunnel syndrome, right upper limb; Translations: [Carpal tunnel syndrome, right upper limb] Onset: 09-29-2022 Chronic Other nervous system disorders (2 sources) Other chronic pain; Translations: [Other chronic pain] Onset: 09-16-2022 Chronic Other nutritional; endocrine; and metabolic disorders (3 sources) Severe obesity; Translations: [Morbid (severe) obesity due to excess calories] Chronic Other nutritional; endocrine; and metabolic disorders (7 sources) Body mass index 40+ - severely obese; Translations: [Morbid (severe) obesity due to excess calories] Onset: 09-16-2022 09-16-2022 Chronic Skin and subcutaneous tissue infections (6 sources) Abscess of buttock; Translations: [Cutaneous abscess of buttock] Onset: 09-15-2023 09-16-2023 Episodic Spondylosis; intervertebral disc disorders; other back problems (17 sources) Degeneration of lumbar intervertebral disc; Translations: [Other intervertebral disc degeneration, lumbar region] Onset: 11-07-2014 09-22-2021 Chronic Spondylosis; intervertebral disc disorders; other back problems (7 sources) Chronic low back pain; Translations: [Lumbago with sciatica, left side] Episodic Sprains and strains (2 sources) Low back strain; Translations: [Strain of muscle, fascia and tendon of lower back, initial encounter] Episodic Unclassified (1 source) Housing instability, housed unspecified; Translations: [Housing instability, housed unspecified] Onset: 10-27-2022 Unclassified (1 source) Food insecurity; Translations: [Food insecurity] Onset: 10-27-2022 Unclassified (1 source) Other thrombotic microangiopathy; 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] Onset: 06-20-2021 Past or Other Problems Problem Classification Problem Date Documented Date Episodic/Chronic Fluid and electrolyte disorders (20 sources) Disorder of electrolytes; Translations: [Other disorders of electrolyte and fluid balance, not elsewhere classified] Onset: 06-20-2021 Resolved: 09-29-2022 06-20-2021 Episodic Immunizations and screening for infectious disease (3 sources) Requires diphtheria, tetanus and pertussis vaccination; Translations: [Encounter for immunization] Onset: 10-27-2022 Episodic Mood disorders (17 sources) Mood disorders Onset: 09-22-2021 Resolved: 10-27-2022 09-22-2021 Other aftercare (2 sources) Encounter for follow-up examination after completed treatment for conditions other than malignant neoplasm; Translations: [Encounter for follow-up examination after completed treatment for conditions other than malignant neoplasm] Onset: 07-21-2022 Episodic Other circulatory disease (17 sources) Thrombotic microangiopathy; 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 09-14-2009 Chronic Other connective tissue disease (12 sources) Insertional Achilles tendinopathy; Translations: [Achilles tendinitis, unspecified leg] Onset: 09-29-2022 Episodic Other connective tissue disease (8 sources) Retrocalcaneal bursitis of right foot; Translations: [Other enthesopathy of right foot and ankle] Onset: 09-29-2022 Episodic Other connective tissue disease (2 sources) Achilles tendinitis, unspecified leg; Translations: [Achilles tendinitis, unspecified leg] Onset: 09-29-2022 Episodic Other connective tissue disease (2 sources) Pain in right foot; Translations: [Pain in right foot] Onset: 09-16-2022 Episodic Other connective tissue disease (2 sources) Pain in left foot; Translations: [Pain in left foot] Onset: 09-16-2022 Episodic Other non-traumatic joint disorders (17 sources) Pain in unspecified knee; Translations: [Pain in joint, lower leg] Onset: 02-28-2014 02-28-2014 Episodic Unclassified (1 source) Housing instability, housed unspecified; Translations: [Housing instability, housed unspecified] Onset: 10-27-2022 Unclassified (1 source) Food insecurity; Translations: [Food insecurity] Onset: 10-27-2022 Unclassified (1 source) Other thrombotic microangiopathy; 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] Onset: 10-27-2022 Results Test Name Value Interpretation Reference Range Facil ity Vital Signs Date Time Vital Sign Value Performing Clinician Faci lity 09-16-2023 14:18-0500 Body height 175.3 cm Ok Rai DO Work Phone: [facility] [employer] 09-16-2023 14:18-0500 Body mass index (BMI) [Ratio] 42.83 kg/m2 Ok Rai DO Work Phone: [facility] [employer] 09-16-2023 14:18-0500 Body temperature 98.1 [degF] Ok Barbozala DO Work Phone: [facility] [employer] 09-16-2023 14:18-0500 Body weight 131.54 kg Ok Rai DO Work Phone: [employer] 09-16-2023 14:18-0500 Diastolic blood pressure 108 mm[Hg] Ok Barbozala DO Work Phone: [facility] [employer] 09-16-2023 14:18-0500 Heart rate 99 /min Ok Rai DO Work Phone: [facility] [employer] 09-16-2023 14:18-0500 Respiratory rate 17 /min Ok Barbozala DO Work Phone: [employer] 09-16-2023 14:18-0500 SaO2% (BldA) [Mass fraction] 97 % Ok Barbozala DO Work Phone: [employer] 09-16-2023 14:18-0500 Systolic blood pressure 163 mm[Hg] Ok Barbozala DO Work Phone: [facility] [employer] 02-13-2023 09:57-0400 Body mass index (BMI) [Ratio] 40.87 kg/m2 [facility] Work Phone: [facility] 02-13-2023 09:57-0400 Body weight 134.63 kg Sonido Dyer [facility] Work Phone: [facility] 02-13-2023 09:57-0400 Diastolic blood pressure 88 mm[Hg] [facility] Work Phone: [facility] 02-13-2023 09:57-0400 Heart rate 88 /min [facility]ido [facility] Work Phone: [facility] 02-13-2023 09:57-0400 Systolic blood pressure 134 mm[Hg] [facility] Work Phone: [facility] 10-27-2022 13:07-0500 Body height 181.5 cm 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 Phone: [facility] 10-27-2022 13:07-0500 Body mass index (BMI) [Ratio] 39.66 kg/m2 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 Phone: [facility] 10-27-2022 13:07-0500 Body temperature 98.4 [degF] 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 Phone: [facility] 10-27-2022 13:07-0500 Body weight 130.64 kg 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 Phone: [facility] 10-27-2022 13:07-0500 Diastolic blood pressure 74 mm[Hg] 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 Phone: [facility] 10-27-2022 13:07-0500 Heart rate 106 /min 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 Phone: [facility] 10-27-2022 13:07-0500 Respiratory rate 18 /min [facility]ICIAN-FARM PLANNER Work Phone: [facility] 10-27-2022 13:07-0500 SaO2% (BldA) [Mass fraction] 95 % [facility] PHYSICIAN-FARM PLANNER Work Phone: [facility] 10-27-2022 13:07-0500 Systolic blood pressure 122 mm[Hg] [facility] PHYSICIAN-FARM PLANNER Work Phone: [facility] 10-27-2022 09:01-0500 Body height 175.3 cm Abdirahman Whitfield MD Work Phone: [facility] 10-27-2022 09:01-0500 Body mass index (BMI) [Ratio] 42.65 kg/m2 Abdirahman Whitfield MD Work Phone: [facility] 10-27-2022 09:01-0500 Body temperature 98.49 [degF] Abdirahman Whitfield MD Work Phone: [facility] 10-27-2022 09:01-0500 Body weight 131 kg Abdirahman Whitfield MD Work Phone: [facility] 10-27-2022 09:01-0500 Diastolic blood pressure 79 mm[Hg] Abdirahman Whitfield MD Work Phone: [facility] 10-27-2022 09:01-0500 Heart rate 115 /min Abdirahman Whitfield MD Work Phone: [facility] 10-27-2022 09:01-0500 Respiratory rate 16 /min Abdirahman Whitfield MD Work Phone: [facility] 10-27-2022 09:01-0500 SaO2% (BldA) [Mass fraction] 96 % Abdirahman Whitfield MD Work Phone: [facility] 10-27-2022 09:01-0500 Systolic blood pressure 124 mm[Hg] Abdirahman Whitfield MD Work Phone: [facility] 07-21-2022 10:47-0400 Diastolic blood pressure 86 mm[Hg] Abdirahman Whitfield MD Work Phone: [facility] 07-21-2022 10:47-0400 Heart rate 89 /min Abdirahman Whitfield MD Work Phone: [facility] 07-21-2022 10:47-0400 Systolic blood pressure 126 mm[Hg] Abdirahman Whitfield MD Work Phone: [facility] 07-21-2022 09:48-0400 Body height 175.3 cm bAdirahman Whitfield MD Work Phone: [facility] 07-21-2022 09:48-0400 Body mass index (BMI) [Ratio] 43.56 kg/m2 Abdirahman Whitfield MD Work Phone: [facility] 07-21-2022 09:48-0400 Body temperature 97.81 [degF] Abdirahman Whitfield MD Work Phone: [facility] 07-21-2022 09:48-0400 Body weight 133.81 kg Abdirahman Whitfield MD Work Phone: [facility] 07-21-2022 09:48-0400 Respiratory rate 18 /min Abdirahman Whitfield MD Work Phone: [facility] 07-21-2022 09:48-0400 SaO2% (BldA) [Mass fraction] 96 % Abdirahman Whitfield MD Work Phone: [facility] 05-13-2022 08:59-0400 Body height 175.3 cm Fran Jarrett MD Work Phone: [facility] 05-13-2022 08:59-0400 Body mass index (BMI) [Ratio] 42.83 kg/m2 Fran Jarrett MD Work Phone: [facility] 05-13-2022 08:59-0400 Body temperature 96.91 [degF] Fran Jrarett MD Work Phone: [facility] 05-13-2022 08:59-0400 Body weight 131.54 kg Fran Jarrett MD Work Phone: [facility] 05-13-2022 08:59-0400 Heart rate 80 /min Fran Jarrett MD Work Phone: [facility] 05-13-2022 08:59-0400 SaO2% (BldA) [Mass fraction] 97 % Fran Jarrett MD Work Phone: [facility] 04-14-2022 08:36-0400 Body height 175.3 cm Abdirahman Whitfield MD Work Phone: [facility] 04-14-2022 08:36-0400 Body temperature 97.81 [degF] Abdirahman Whitfield MD Work Phone: [facility] 04-14-2022 08:36-0400 Diastolic blood pressure 83 mm[Hg] Abdirahman Whitfield MD Work Phone: [facility] 04-14-2022 08:36-0400 Heart rate 87 /min Abdirahman Whitfield MD Work Phone: [facility] 04-14-2022 08:36-0400 Respiratory rate 18 /min Abdirahman Whitfield MD Work Phone: [facility] 04-14-2022 08:36-0400 SaO2% (BldA) [Mass fraction] 96 % Abdirahman Whitfield MD Work Phone: [facility] 04-14-2022 08:36-0400 Systolic blood pressure 111 mm[Hg] Abdirahman Whitfield MD Work Phone: [facility] 03-30-2022 13:16-0400 Body height 175.3 cm Lonnie Giovannyz NEUROSURGERY PHYSICIAN-FARM PLANNER Work Phone: [facility] 03-30-2022 13:16-0400 Body mass index (BMI) [Ratio] 42.77 kg/m2 Lonnie Bogantz NEUROSURGERY PHYSICIAN-FARM PLANNER Work Phone: [phone] [address] 03-30-2022 13:16-0400 Body temperature 97.5 [degF] Lonnie Bogantz NEUROSURGERY PHYSICIAN-FARM PLANNER Work Phone: [facility] 03-30-2022 13:16-0400 Body weight 131.36 kg Lonnie Bogantz NEUROSURGERY PHYSICIAN-FARM PLANNER Work Phone: [phone])[phone] [address] 03-30-2022 13:16-0400 Diastolic blood pressure 80 mm[Hg] Lonnie Bogantz NEUROSURGERY PHYSICIAN-FARM PLANNER Work Phone: [phone] [address] 03-30-2022 13:16-0400 Heart rate 110 /min Lonnie Bogantz NEUROSURGERY PHYSICIAN-FARM PLANNER Work Phone: [facility] 03-30-2022 13:16-0400 Respiratory rate 18 /min Lonnie Bogantz NEUROSURGERY PHYSICIAN-FARM PLANNER Work Phone: [phone] [place] [address] 03-30-2022 13:16-0400 SaO2% (BldA) [Mass fraction] 98 % Lonnie Bogantz NEUROSURGERY PHYSICIAN-FARM PLANNER Work Phone: [phone] [place] [address] 03-30-2022 13:16-0400 Systolic blood pressure 120 mm[Hg] Lonnie Bogantz NEUROSURGERY PHYSICIAN-FARM PLANNER Work Phone: [facility] 01-31-2022 15:07-0400 Body height 175.3 cm Lonnie Bogantz NEUROSURGERY PHYSICIAN-FARM PLANNER Work Phone: [facility] 01-31-2022 15:07-0400 Body mass index (BMI) [Ratio] 44.75 kg/m2 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 Phone: [facility] 01-31-2022 15:07-0400 Body temperature 98.29 [degF] 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 Phone: [facility] 01-31-2022 15:07-0400 Body weight 137.44 kg 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 Phone: [facility] 01-31-2022 15:07-0400 Diastolic blood pressure 74 mm[Hg] 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 Phone: [facility] 01-31-2022 15:07-0400 Heart rate 72 /min 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 Phone: [facility] 01-31-2022 15:07-0400 SaO2% (BldA) [Mass fraction] 99 % 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 Phone: [facility] 01-31-2022 15:07-0400 Systolic blood pressure 106 mm[Hg] 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 Phone: [facility] 01-27-2022 08:11-0400 Body height 175.3 cm Fran Jarrett MD Work Phone: [facility] 01-27-2022 08:11-0400 Body mass index (BMI) [Ratio] 44.01 kg/m2 Fran Jarrett MD Work Phone: [facility] 01-27-2022 08:11-0400 Body temperature 97 [degF] Fran Jarrett MD Work Phone: [facility] 01-27-2022 08:11-0400 Body weight 135.17 kg Fran Jarrett MD Work Phone: [facility] Encounters Encounter Date Encounter Type Care Provider Facility Start: 09-16-2023 End: 09-16-2023 Emergency department patient visit IZABELA TURNER [facility] Start: 09-16-2023 End: 09-16-2023 Emergency department patient visit Ok Rai DO Work Phone: [facility] ED Procedures Date Procedure Procedure Detail Performing Clinician Start: 09-16-2023 Incision & drainage abscess simple/single Ok Rai DO Work Phone: Start: 02-13-2023 Hemoglobin glycosylated a1c 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 Phone: Start: 10-27-2022 CBC AND ELECTRONIC DIFF Abdirahman Whitfield MD Work Phone: Start: 10-27-2022 Complete blood count with white cell differential, automated Abdirahman Whitfield MD Work Phone: Start: 10-27-2022 Lactate dehydrogenase ldh Abdirahman Whitfield MD Work Phone: Start: 10-06-2022 Mri any jt lower ext rem w/o contrast matrl Markyeni Hutchinsb DPM Work Phone: Start: 07-21-2022 CBC AND ELECTRONIC DIFF Abdirahman Whitfield MD Work Phone: Start: 07-21-2022 Complete blood count with white cell differential, automated Abdirahman Whitfield MD Work Phone: Start: 07-21-2022 Hemoglobin glycosylated a1c 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 Phone: Start: 07-21-2022 Lipid panel Lonnie tinoco NEUROSURGERY PHYSICIAN-FARM PLANNER Work Phone: Start: 04-14-2022 CBC AND ELECTRONIC DIFF Abdirahman Whitfield MD Work Phone: Start: 04-14-2022 Complete blood count with white cell differential, automated Abdirahman Whitfield MD Work Phone: Start: 04-14-2022 Lactate dehydrogenase ldh Abdirahman Whitfield MD Work Phone: Start: 03-30-2022 Hemoglobin glycosylated a1c 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 Phone: Start: 02-08-2022 Radex foot complete minimum 3 views Serge Murdock DPM Work Phone: Start: 01-27-2022 Radex spine lumbosac ral minimum 4 views Fran Jarrett MD Work Phone: Plan of Treatment Date Care Activity Detail Author Start: 2041 RSV Immunization aged 60 or older (1 - 1-dose 60+ series) RSV Immunization aged 60 or older (1 - 1-dose 60+ series) [facility] Start: 10-27-2032 [facility] Start: 2031 Zoster Vaccines (1 of 2) Zoster Vaccines (1 of 2) [facility] Start: 10-27-2023 PREVENTATIVE HEALTH VISIT PREVENTATIVE HEALTH VISIT [facility] Start: 09-29-2023 Urine screening for protein URINE MICROALBUMIN TEST [facility] Start: 08-16-2023 Hemoglobin A1c measurement HBA1C TEST [facility] Start: 07-21-2023 Lipid panel LIPIDS [facility] enter Start: 07-21-2023 LIPIDS LIPIDS [facility] enter Start: 07-17-2023 End: 07-17-2023 Patient encounter procedure 07/17/2023 Office Visit Family Medicine Sonido Dyer, [facility] [address] [place] [address] [facility] [place] Start: 06-16-2023 COVID-19 Vaccine ( season) COVID-19 Vaccine ( season) [facility] Start: 06-16-2023 Influenza vaccination Influenza Vaccine (#1) [facility] Start: 04-13-2023 End: 04-13-2023 Patient encounter procedure 04/13/2023 Office Visit Hematology Abdirahman Whitfield MD [address] [place] [phone] Division of Hematology & Oncology Start: 03-02-2023 End: 03-02-2023 Patient encounter procedure 03/02/2023 Office Visit Sports Medicine Johana Blackwood [facility] [address] [facility] [address] [place] [phone] [facility] [place] Start: 02-15-2023 End: 02-15-2023 Patient encounter procedure 02/15/2023 Office Visit Orthopaedics Johana Blackwood MD [address] [place] [phone] [facility] [place] Start: 02-02-2023 End: 02-02-2023 Patient encounter procedure 02/02/2023 Office Visit Family Medicine Sonido Dyer, [facility] [address] [place] [address] [facility] [place] Start: 01-19-2023 Hemoglobin A1c measurement HBA1C TEST [facility] Start: 01-19-2023 End: 01-19-2023 Patient encounter procedure 01/19/2023 Office Visit Hematology Abdirahman Whitfield MD [address] [place] [address] [place] [phone] Division of Hematology & Oncology Start: 12-14-2022 End: 12-14-2022 Patient encounter procedure 12/14/2022 Office Visit Sports Medicine Efrain Berry MD [address] [place] [phone] [facility] Start: 11-03-2022 End: 11-03-2022 Telemedicine consultation with patient 11/03/2022 Telemedicine Family Medicine Sonido Dyer, [facility] [address] [place] [address] [facility] [place] Start: 10-27-2022 End: 10-26-2023 [id number] ACTIVITY AND IGG AB W/REFLEX TO INHIBITOR [facility] Immunizations Immunization Date Immunization Notes Care Provider Fa cility 10-27-2022 diphtheria, tetanus toxoids and acellular pertussis vaccine, unspecified formulation 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 Phone: [facility] 10-27-2022 tetanus toxoid, redu sunny diphtheria toxoid, and acellular pertussis vaccine, adsorbed; Translations: [TDAP VACCINE >10YO 0.5ML IM] Abdirahman Whitfield MD Work Phone: [facility] 09-28-2021 influenza virus vaccine, unspecified formulation Abdirahman Whitfield MD Work Phone: [facility] 04-29-2021 COVID-19 vaccine, AD 26, Karla 0.5 ML Fran Jarrett MD Work Phone: [facility] Payers Date Payer Category Payer Medicaid [employer] ODM [id number] 2022-Present [phone] [address] [place] [address] Medicaid HMO [id number] 2022 Unknown [id number] 2022 Unknown [id number] 2015 Medicaid [id number] 2015 Unknown [id number] 1.13.172.2.7.3. [id number] 1981 Unknown [id number] 2.16.840.1.563269.3.579.2.627 1981 Unknown [id number] 2.16840.1.930709.3.579.2.627 1981 Unknown [id number] 2.840.1.379709.3.579.2.627 1981 Unknown [id number] 2.840.1.783626.3.579.2.627 1981 Unknown [id number] 2.840.1.435300.3.579.2.627 1981 Unknown [id number] 2.840.1.001897.3.579.2. 1981 Unknown [id number] 2.840.1.645304.3.579.2 1981 Unknown [id number] 2840.1.407403.3.579.2 1981 Unknown [id number] 2.840.1.989379.3.579.2.594 1981 Unknown [id number] 840.1.880050.3.579.2.594 1981 Unknown [id number] 2.840.1.277044.3.579.2.594 1981 Unknown [id number] 840.1.164678.3.579.2.594 1981 Unknown [id number] 840.1.616941.3.579.2.594 1981 Unknown [id number] 840.1.392943.3.579.2.594 1981 Unknown [id number] .840.1.640084.3.579.2.594 1981 Unknown [id number] 840.1.509340.3.579.2.594 1981 Unknown [id number] 840.1.726654.3.579.2.594 1981 Unknown [id number] 2.840.1.574036.3.579.2.594 1981 Unknown [id number] 2.840.1.676840.3.579.2.594 1981 Unknown [id number] 2.840.1.179617.3.579.2.594 1981 Unknown [id number] 2.840.1.824957.3.579.2.594 1981 Unknown [id number] 2.840.1.800546.3.579.2.594 1981 Unknown [id number] 2.840.1.666512.3.579.2.594 1981 Unknown [id number] 2.840.1.321727.3.579.2.594 1981 Unknown [id number] 2.840.1.880148.3.579.2.594 1981 Unknown [id number] 2.840.1.432330.3.579.2.594 1981 Unknown [id number] 2.840.1.594069.3.579.2.594 1981 Unknown [id number] 12.01.830.1.430404.3.579.2.594 1981 Unknown [id number] 840.1.894935.3.579.2.594 1981 Unknown [id number] 840.1.890879.3.579.2.594 1981 Unknown [id number] 840.1.525359.3.579.2.1243 Social History Date Type Detail Facility Start: 02-12-1994 End: 10-27-2022 Tobacco smoking status WYIS Smokes tobacco daily [facility] Start: 02-12-1994 History of tobacco use Cigarette Smo ker [facility] Start: 09-22-2021 End: 09-16-2023 Cigarettes smoked current (pack per day) - Reported 1 [facility] Start: 09-22-2021 End: 10-27-2022 Tobacco use and exposure Former smokeless tobacco user [facility] Start: 01-27-2022 End: 09-16-2023 Alcohol intake Current non-drinker of alcohol (finding) [facility] Start: 09-22-2021 End: 09-16-2022 Tobacco Comment Keep's me calm in a stressful situation [facility] Start: 1980 Sex Assigned At Not on file O [facility] Start: 01-15-2022 End: 10-27-2022 Exposure to SARS-CoV-2 (event) Unable to assess [facility] Start: 09-26-2022 End: 10-06-2022 Exposure to SARS-CoV-2 (event) Not sure [facility] Start: 09-16-2023 Alcohol Use Disorder Identification Test - Consumption [AUDIT-C] [facility] How often to you hav e a drink containing alcohol? Never [facility] How many standard dr inks containing alcohol do you have on a typical day? Patient does not drink [facility] Equipment Procedure Code Equipment Code Equipment Origin al Text Equipment Identifier Dates Cath Dial Hemosp lit 19cm [id number] Start: 10-26-2012 Cath Dial Hemosp lit 19cm [id number] Start: 11-02-2012 Use new needle w ith each insulin injection. [id number] Start: 10-20-2021 Use new needle w ith each insulin injection. [id number] Start: 05-26-2022 Goals Date Patient Goal Desired Activity /State Clinical Notes 01-27-2022 to 09-16-2023 Nallely Roland RN - 09/16/2023 3:55 PM Connie Roland RN - 09/16/2023 3:55 PM Elian Rai DO - 09/16/2023 2:02 PM Connie Roland RN - 09/16/2023 2:02 PM [place] Instructions Note Date & Type Note Facility 09-16-2023 Emergency department Note Discharge instructions, follow up care, and pain management discussed with patient. All questions answered, there are no further questions at this time. Patient ambulated off the unit independently at discharge. Nallely Roland RN 09/16/23 1556 [facility] 09-16-2023 Emergency department Note Discharge instructions, follow up care, and pain management discussed with patient. All questions answered, there are no further questions at this time. Patient ambulated off the unit independently at discharge. Nallely Roland RN 09/16/23 1556 Associated Order(s): Incision and Drainage EMERGENCY DEPARTMENT ENCOUNTER Pt Name: Jairo Adkins Birthdate 1980 Date of evaluation: 09/16/2023 ED Provider: Ok Rai DO CHIEF COMPLAINT Chief Complaint Patient presents with Abscess Left butt cheek boil that started on Monday, and has gotten progressively worse per patient; he attempted to sarmad it himself on Monday and used warm compresses on Monday as well; denies fevers or chills HISTORY OF PRESENT ILLNESS (Location/Symptom, Timing/Onset, Context/Setting, Quality, Duration, Modifying Factors, Severity) Note limiting factors. I wore appropriate PPE for the entirety of this encounter. HPI Jairo Adkins is a 43 y.o. who presents to the emergency department with chief complaint of a boil to his left gluteal area. States he has been spending a lot of time in his car because he currently lives out of his car. Thinks he might of caused an abrasion to the area from sitting and friction. The boil started out just as a small bump 5 days ago but is now gotten progressively worse with a central black area, significant redness, swelling, and pressure sensation. Has been using warm compresses without improvement. No fevers or chills. Denies any testicular pain or rectal pain. No purulent drainage. Was seen at outside facility yesterday and was told it was not ready for I&D. Started on doxycycline which she has been taking. Nursing Notes were reviewed. Limitations to history: None Outside historians: None REVIEW OF SYSTEMS Review of Systems Pertinent positives and negatives as per HPI PAST MEDICAL HISTORY Past Medical History: Diagnosis Date T.T.P. syndrome (HCC) SURGICAL HISTORY Past Surgical History: Procedure Laterality Date OTHER SURGICAL HISTORY Fresh frozen plasma due to blood disorder CURRENT MEDICATIONS Discharge Medication List as of 09/16/2023 3:52 PM ALLERGIES Tramadol, Fentanyl and related, Ketorolac, Methadone, Prednisone, and Tape FAMILY HISTORY No family history on file. SOCIAL HISTORY Social History Socioeconomic History Marital status: Tobacco Use Smoking status: Every Day Packs/day: 1 Types: Cigarettes Substance and Sexual Activity Alcohol use: No Drug use: Yes Types: Marijuana Comment: Daily use SCREENINGS PHYSICAL EXAM ED Triage Vitals [09/16/23 1418] Temp Heart Rate Resp BP 36.7 C (98.1 F) 99 17 (!) 163/108 SpO2 Temp Source Heart Rate Source Patient Position 97 % Oral Monitor -- BP Location FiO2 (%) -- -- Physical Exam Vitals and nursing note reviewed. Constitutional: General: He is not in acute distress. HENT: Head: Normocephalic and atraumatic. Nose: Nose normal. Mouth/Throat: Mouth: Mucous membranes are moist. Eyes: Conjunctiva/sclera: Conjunctivae normal. Pulmonary: Effort: No respiratory distress. Genitourinary: Comments: The left mid gluteal area has a 3 cm circular area of erythema, induration, warmth, with central umbilication and scabbing. There is fluctuance as well. No spontaneous purulent drainage. The erythema does not extend into the anorectal area or the testicular area. No crepitus. No regional lymphadenopathy. Musculoskeletal: Cervical back: Neck supple. Neurological: Mental Status: He is alert and oriented to person, place, and time. Psychiatric: Mood and Affect: Mood normal. DIAGNOSTIC RESULTS RADIOLOGY (Per Emergency Physician): Interpretation per the Radiologist below, if available at the time of this note: No orders to display LABS: Labs Reviewed - No data to display All other labs were within normal range or not returned as of this dictation. EMERGENCY DEPARTMENT COURSE and DIFFERENTIAL DIAGNOSIS/MDM: Vitals: Vitals: 09/16/23 1418 BP: (!) 163/108 Pulse: 99 Resp: 17 Temp: 36.7 C (98.1 F) TempSrc: Oral SpO2: 97% Weight: 132 kg (290 lb) Height: 1.753 m (5' 9 ) Medications lidocaine-EPINEPHrine (Xylocaine W/EPI) 1 %-1:341738 injection 10 mL (has no administration in time range) oxyCODONE-acetaminophen (Percocet) 5-325 MG per tablet 1 tablet (1 tablet Oral Given 09/16/23 6692) Patient presents with gluteal abscess to the left side. Does not seem to involve the anogenital region. Clinically, do not suspect Greta's gangrene or other deep space infection or abscess that needs urgent imaging and surgical consultation. Incised and drained at bedside as detailed below. Patient tolerated well. He is already on doxycycline which he just darted yesterday. Instructed to continue his antibiotics. Reviewed wound care with the patient. Also reviewed signs and symptoms that would warrant immediate return to ED. PROCEDURES Incision and Drainage Performed by: Ok Rai DO Authorized by: Ok Rai DO Consent: Consent obtained: Verbal Consent given by: Patient Risks discussed: Bleeding, incomplete drainage, pain and infection Alternatives discussed: Delayed treatment and referral [place] protocol: Patient identity confirmed: Verbally with patient Location: Type: Abscess Location: Lower extremity Lower extremity location: Buttock Buttock location: L buttock Pre-procedure details: Skin preparation: Chlorhexidine Sedation: Sedation type: None Anesthesia: Anesthesia method: Local infiltration Local anesthetic: Lidocaine 1% WITH epi Procedure type: Complexity: Simple Procedure details: Ultrasound guidance: no Needle aspiration: no Incision types: Single straight Incision depth: Dermal Wound management: Probed and deloculated and irrigated with saline Drainage: Serosanguinous Drainage amount: Moderate Wound treatment: Wound left open Packing materials: 1/2 in gauze Amount 1/2 : 6in Post-procedure details: Procedure completion: Tolerated well, no immediate complications FINAL IMPRESSION 1. Gluteal abscess DISPOSITION Discharge 09/16/2023 03:48:50 PM PATIENT REFERRED TO: Izabela Turner [address] [place] [id number] Go in 3 days For wound re-check DISCHARGE MEDICATIONS: Discharge Medication List as of 09/16/2023 3:52 PM START taking these medications Details HYDROcodone-acetaminophen (Spurgeon) 5-325 MG tablet Take 1 tablet by mouth every 6 hours as needed for severe pain (7-10) for up to 3 days., Starting 09/16/2023, Until Mon09/19/2023 at 2359, Normal (Comment: Please note this report has been produced using speech recognition software and may contain errors related to that system including errors in grammar, punctuation, and spelling, as well as words and phrases that may be inappropriate. If there are any questions or concerns please feel free to contact the dictating provider for clarification.) Ok Rai DO (electronically signed) Emergency Medicine Provider Ok Rai DO 09/16/23 171 Patient ambulatory to room 15 presenting with c/o of left buttock abscess. He says he noticed it on Monday, and then on Monday attempted compresses and attempted to self-sarmad with a razor blade. He reports since then it has grown in size and it more painful. Vital signs are stable. He denies fevers or chills. Patient was provided with gown to change into. Call light in reach. documented in this encounter [facility] 09-16-2023 Hospital Discharg e instructions Ok Rai DO - 09/16/2023 3:49 PM EST Keep taking the antibiotics you are prescribed at the other ER. Doxycycline is appropriate coverage for this type of infection. Please keep the wound clean and dry. The following attachments cannot be sent through Care Everywhere.Abscess Drainage, Percutaneous Discharge Instructions ([place])documented in this encounter [facility] 09-16-2023 Emergency department Triage note Patient ambulatory to room 15 presenting with c/o of left buttock abscess. He says he noticed it on Monday, and then on Monday attempted compresses and attempted to self-sarmad with a razor blade. He reports since then it has grown in size and it more painful. Vital signs are stable. He denies fevers or chills. Patient was provided with gown to change into. Call light in reach. [facility] 09-16-2023 Physician Emergency department Note Associated Order(s): Incision and Drainage EMERGENCY DEPARTMENT ENCOUNTER Pt Name: Jairo Adkins Birthdate 1980 Date of evaluation: 09/16/2023 ED Provider: Ok Rai DO CHIEF COMPLAINT Chief Complaint Patient presents with Abscess Left butt cheek boil that started on Monday, and has gotten progressively worse per patient; he attempted to sarmad it himself on Monday and used warm compresses on Monday as well; denies fevers or chills HISTORY OF PRESENT ILLNESS (Location/Symptom, Timing/Onset, Context/Setting, Quality, Duration, Modifying Factors, Severity) Note limiting factors. I wore appropriate PPE for the entirety of this encounter. HPI Jairo Adkins is a 43 y.o. who presents to the emergency department with chief complaint of a boil to his left gluteal area. States he has been spending a lot of time in his car because he currently lives out of his car. Thinks he might of caused an abrasion to the area from sitting and friction. The boil started out just as a small bump 5 days ago but is now gotten progressively worse with a central black area, significant redness, swelling, and pressure sensation. Has been using warm compresses without improvement. No fevers or chills. Denies any testicular pain or rectal pain. No purulent drainage. Was seen at outside facility yesterday and was told it was not ready for I&D. Started on doxycycline which she has been taking. Nursing Notes were reviewed. Limitations to history: None Outside historians: None REVIEW OF SYSTEMS Review of Systems Pertinent positives and negatives as per HPI PAST MEDICAL HISTORY Past Medical History: Diagnosis Date T.T.P. syndrome (HCC) SURGICAL HISTORY Past Surgical History: Procedure Laterality Date OTHER SURGICAL HISTORY Fresh frozen plasma due to blood disorder CURRENT MEDICATIONS Discharge Medication List as of 09/16/2023 3:52 PM ALLERGIES Tramadol, Fentanyl and related, Ketorolac, Methadone, Prednisone, and Tape FAMILY HISTORY No family history on file. SOCIAL HISTORY Social History Socioeconomic History Marital status: Tobacco Use Smoking status: Every Day Packs/day: 1 Types: Cigarettes Substance and Sexual Activity Alcohol use: No Drug use: Yes Types: Marijuana Comment: Daily use SCREENINGS PHYSICAL EXAM ED Triage Vitals [09/16/23 1418] Temp Heart Rate Resp BP 36.7 C (98.1 F) 99 17 (!) 163/108 SpO2 Temp Source Heart Rate Source Patient Position 97 % Oral Monitor -- BP Location FiO2 (%) -- -- Physical Exam Vitals and nursing note reviewed. Constitutional: General: He is not in acute distress. HENT: Head: Normocephalic and atraumatic. Nose: Nose normal. Mouth/Throat: Mouth: Mucous membranes are moist. Eyes: Conjunctiva/sclera: Conjunctivae normal. Pulmonary: Effort: No respiratory distress. Genitourinary: Comments: The left mid gluteal area has a 3 cm circular area of erythema, induration, warmth, with central umbilication and scabbing. There is fluctuance as well. No spontaneous purulent drainage. The erythema does not extend into the anorectal area or the testicular area. No crepitus. No regional lymphadenopathy. Musculoskeletal: Cervical back: Neck supple. Neurological: Mental Status: He is alert and oriented to person, place, and time. Psychiatric: Mood and Affect: Mood normal. DIAGNOSTIC RESULTS RADIOLOGY (Per Emergency Physician): Interpretation per the Radiologist below, if available at the time of this note: No orders to display LABS: Labs Reviewed - No data to display All other labs were within normal range or not returned as of this dictation. EMERGENCY DEPARTMENT COURSE and DIFFERENTIAL DIAGNOSIS/MDM: Vitals: Vitals: 09/16/23 1418 BP: (!) 163/108 Pulse: 99 Resp: 17 Temp: 36.7 C (98.1 F) TempSrc: Oral SpO2: 97% Weight: 132 kg (290 lb) Height: 1.753 m (5' 9 ) Medications lidocaine-EPINEPHrine (Xylocaine W/EPI) 1 %-1:418858 injection 10 mL (has no administration in time range) oxyCODONE-acetaminophen (Percocet) 5-325 MG per tablet 1 tablet (1 tablet Oral Given 09/16/23 0824) Patient presents with gluteal abscess to the left side. Does not seem to involve the anogenital region. Clinically, do not suspect Greta's gangrene or other deep space infection or abscess that needs urgent imaging and surgical consultation. Incised and drained at bedside as detailed below. Patient tolerated well. He is already on doxycycline which he just darted yesterday. Instructed to continue his antibiotics. Reviewed wound care with the patient. Also reviewed signs and symptoms that would warrant immediate return to ED. PROCEDURES Incision and Drainage Performed by: Ok Rai DO Authorized by: Ok Rai DO Consent: Consent obtained: Verbal Consent given by: Patient Risks discussed: Bleeding, incomplete drainage, pain and infection Alternatives discussed: Delayed treatment and referral [place] protocol: Patient identity confirmed: Verbally with patient Location: Type: Abscess Location: Lower extremity Lower extremity location: Buttock Buttock location: L buttock Pre-procedure details: Skin preparation: Chlorhexidine Sedation: Sedation type: None Anesthesia: Anesthesia method: Local infiltration Local anesthetic: Lidocaine 1% WITH epi Procedure type: Complexity: Simple Procedure details: Ultrasound guidance: no Needle aspiration: no Incision types: Single straight Incision depth: Dermal Wound management: Probed and deloculated and irrigated with saline Drainage: Serosanguinous Drainage amount: Moderate Wound treatment: Wound left open Packing materials: 1/2 in gauze Amount 1/2 : 6in Post-procedure details: Procedure completion: Tolerated well, no immediate complications FINAL IMPRESSION 1. Gluteal abscess DISPOSITION Discharge 09/16/2023 03:48:50 PM PATIENT REFERRED TO: Izabela Turner [address] [place] [address] Go in 3 days For wound re-check DISCHARGE MEDICATIONS: Discharge Medication List as of 09/16/2023 3:52 PM START taking these medications Details HYDROcodone-acetaminophen ([place]) 5-325 MG tablet Take 1 tablet by mouth every 6 hours as needed for severe pain (7-10) for up to 3 days., Starting 09/16/2023, Until 09/19/2023 at 2359, Normal (Comment: Please note this report has been produced using speech recognition software and may contain errors related to that system including errors in grammar, punctuation, and spelling, as well as words and phrases that may be inappropriate. If there are any questions or concerns please feel free to contact the dictating provider for clarification.) Ok Rai DO (electronically signed) Emergency Medicine Provider Ok Rai DO 09/16/23 1712 [facility] 02-13-2023 History of Presen t illness Narrative Images from the original note were not included. Pharmacy Consult: Diabetes Subjective: Jairo Adkins Jr. is a 43 y.o. male who presents for management and education of Diabetes Mellitus type 2, diagnosed in 06/2021. Known diabetic complications include: none. Patient's main concern related to diabetes management: nothing specific noted by patient at the start of today's visit Current Diabetes Regimen: Oral medications: o None Injectable medications: o Trulicity 1.5 mg weekly (Mondays; started 12/31/21; inc: 01/28/22) Side Effects/Adherence: Any injection site issues? No Tolerating medications: Yes Medication adherence: denies missed doses. Barriers to adherence: none identified DM Medication Hx Medication/Class Reported Intolerance/ Contraindication Metformin ER GI concerns Lantus Stopped d/t good control on Trulicity monotherapy Home Blood Glucose Readings: Currently monitors blood sugars using Freestyle Roxi w/ Roxi [place] Date Fasting After breakfast Before lunch After lunch Before dinner After dinner Before bed Source: (Meter, log book, recall) 10/12/21 Ave: [address] Range: 175-513 Ave: 383 Range: 252-559 Ave: 272 Range: 83-452 Ave: 307 Range: 128-575 Log Date Average glucose Time active (%) GMI Time in range (%) High/Very high (%) Low/very low (%) Source: (Meter, log book, recall) 11/16/21 157 74 - 68 31 1 [place] 12/07/21 138 81 6.6 82 16 - 1 1 - 0 [facility] 12/28/21 140 70 6.7 80 16 - 2 2 - 0 [facility] 01/25/22 111 81 6.0 93 2 - 0 5 - 0 [facility] 02/08/22 98 74 5.7 89 1 - 0 8 - 2 [facility] 02/22/22 99 69 5.7 93 0 - 0 6 - 1 [facility] 03/08/22 93 73 5.5 82 0 - 0 15 - 3 [facility] 03/22/22 107 65 5.9 93 1 - 0 6 - 0 [facility] 04/26/22 109 63 5.9 96 2 - 0 2 - 0 [facility] 06/02/22 99 29 - 86 1 - 0 10 - 3 [facility] 06/30/22 98 47 - 93 1 - 0 3 - 3 [facility] 07/14/22 117 45 6.1 90 7 - 0 3 - 0 [facility] 08/08/22 119 43 - 94 5 - 0 1 - 0 [facility] 11/03/22 147 59 6.8 78 18 - 4 0 - 0 [facility] 02/13/23 136 58 - 84 14 - 1 1 - 0 [facility] Hypoglycemia: Yes Frequency and timing of hypoglycemia: once a week Symptoms include: headache Treatment: starburst Hyperglycemia: No Current nutrition habits: 02/13/23 Breakfast: oatmeal w/ brown sugar OR eggs Lunch: skipping Supper: cheese bread OR sandwich Snacks: PB crackers Drinks: milk, juice, water, soda 10/12/21 (initial assessment) Seen by dietitian/drawbench operator helper: No Breakfast: cereal (rice krispies or honey bunches of oats) Lunch: skips Dinner: burger on bun OR sweet and sour chicken with rice and veggies OR pot roast with veggie (carrots and potatoes and peppers) Snacks: crackers or cookies Beverages: sprite zero and milk Alcohol use: No Challenges to improving diet: none identified 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 He started smoking about 29 years ago. He has a 30.00 pack-year smoking history. He has quit using smokeless tobacco. Current tobacco use: Yes Interested in quitting: No Objective: Wt Readings from Last 3 Encounters: 02/13/23 134.6 kg (296 lb 12.8 oz) 10/27/22 130.6 kg (288 lb) 10/27/22 131 kg (288 lb 12.8 oz) Estimated body mass index is 40.87 kg/m as calculated from the following: Height as of 10/27/22: 1.815 m (5' 11.46 ). Weight as of this encounter: 134.6 kg (296 lb 12.8 oz). BP Readings from Last 3 Encounters: 02/13/23 134/88 10/27/22 122/74 10/27/22 124/79 Pulse Readings from Last 3 Encounters: 02/13/23 88 10/27/22 106 10/27/22 115 Diabetes Specific Labs Lab Results Component Value Date HGBA1C 6.5 (A) 02/13/2023 HGBA1C 6.1 (H) 07/21/2022 HGBA1C 6.3 (H) 03/30/2022 [id number] 0.00 06/22/2021 ANTPANCISLAB NEGATIVE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
== END 2023-10-29 13:52 | disposition home or self-care (01) ==
PROVIDERS: Emergency Provider Emergency Medicine; Visit Provider Emergency Medicine
DX: G56.01 Carpal tunnel syndrome, right upper limb (principal); F17.210 Nicotine dependence, cigarettes, uncomplicated
CPT/HCPCS: 99283

== ENCOUNTER 2023-11-10 04:09 | Emergency (ER) | payer MEDICAID, SELFPAY ==
[2023-11-10 04:12] VITALS: BP 156/90; PULSE 90; RESP 18; TEMP 36.8; O2SAT 98; BMI 42.5
[2023-11-10 04:14] VITALS: BP 156/90; PULSE 90; RESP 18; TEMP 36.8; O2SAT 98
--- NOTE | 2023-11-10 04:19 | EX.ED.UPPERE ---
HPI History of Present Illness Chief Complaint: Upper Extremity Injury Detail of Chief Complaint: R shoulder pain Informant: patient Narrative Narrative: Patient presents around 4 AM for 2.5 weeks of pain in his right shoulder. He states it is mostly anterior. He denies any known injury. He is right-hand dominant. When asked about repetitive motion he states he has been lifting his child up in helping to care for him a lot but denies anything else he can think of. He has a known history of carpal tunnel syndrome and states he has numbness and tingling in index and middle fingers of the right hand that precedes this shoulder pain. [facility] Medical History Anxiety Bipolar disorder Depression Diabetes Migraines Smoker Substance abuse TTP (thrombotic thrombocytopenic purpura) Home Medications lamotrigine 200 mg tablet 200 mg PO QHS 02/01/21 [History Last Taken Unknown] quetiapine 400 mg tablet,extended release 24 hr 400 mg PO QHS 02/01/21 [History Last Taken Unknown] insulin lispro 100 unit/mL subcutaneous pen (Humalog KwikPen (U-100) Insulin) 10 unit (0.1 mL) subcut TIDCM #15 mL 06/19/21 [Rx Last Taken Unknown] buspirone 10 mg tablet 10 mg PO TID 09/30/21 [History Last Taken Unknown] insulin glargine 100 unit/mL (3 mL) subcutaneous pen (Lantus Solostar U-100 Insulin) 30 unit subcut BID 09/30/21 [History Last Taken Unknown] dulaglutide 0.75 mg/0.5 mL subcutaneous pen injector (Trulicity) 0.75 mg subcut QWEEK 01/06/22 [History Last Taken Unknown] cyclobenzaprine 10 mg tablet 10 mg PO BID PRN muscle spasm #10 tabs 01/13/22 [Rx Last Taken Unknown] cephalexin 500 mg capsule 500 mg PO Q6 #30 caps 10/18/22 [Rx Last Taken Unknown] cyclobenzaprine 10 mg tablet 10 mg PO TID PRN Muscle Spasm #20 TABLETS 05/23/23 [Rx Last Taken Unknown] hydrocodone-acetaminophen 5-325mg 5mg-325mg 1 tab PO Q4H PRN PRN Pain 2 days #10 TABLETS 05/23/23 [Rx Last Taken Unknown] hydrocodone-acetaminophen 5-325mg 5mg-325mg 1 tab PO Q6H PRN PRN Pain 1 day #4 TABLETS 10/29/23 [Rx Last Taken Unknown] diclofenac sodium 1 % topical gel 2.25 inch topical .qd-tid PRN joint pain 10 days #100 grams 11/10/23 [Rx Last Taken Unknown] Allergy/AdvReac Type Severity Reaction Status Date / Time adhesive Allergy Rash Verified 11/10/23 04:11 dicyclomine HCl [From Bentyl] Allergy Hives Verified 11/10/23 04:11 fentanyl Allergy Hives Verified 11/10/23 04:11 Latex, Natural Rubber Allergy Rash Verified 11/10/23 04:11 methadone Allergy Other Verified 11/10/23 04:11 prednisone Allergy Rash Verified 11/10/23 04:11 tramadol HCl [From Ultram] Allergy Hives Verified 11/10/23 04:11 aspirin AdvReac Other Verified 11/10/23 04:11 ketorolac tromethamine AdvReac Upset Verified 11/10/23 04:11 [From Toradol] Stomach Family History Other Diabetes Surgical History H/O eye surgery Social History household members: spouse Smoking Status: Current every day smoker tobacco type: cigarettes substance use type: former substance user ROS ROS ED Constitutional Constitutional ED: Denies chills or fever(s) Musculoskeletal Musculoskeletal: Reports extremity pain; Denies neck pain Integumentary Denies Abrasions, rash or wounds Neurologic Neurologic: Reports paresthesias RUE; Denies weakness EXAM Physical Exam Const Vital Signs: 11/10/23 04:12 11/10/23 04:14 Temperature 98.3 F 98.3 F Temperature Source Temporal Temporal Pulse Rate 90 90 Respiratory Rate 18 18 Blood Pressure 156/90 H 156/90 H Blood Pressure Mean 112 112 Pulse Ox 98 98 Oxygen Delivery Method Room Air Room Air Positive well nourished and well developed General Appearance ED: well developed and NAD Neck full ROM and supple Back/Spine normal ROM and normal to inspection Extremity normal to inspection and full ROM Extremity Narrative: Full range of motion of the right shoulder. He has a positive Yergason and positive speeds tests. [facility] [employer] tests also elicit pain but in the subacromial fossa. Neuro oriented x3, no focal motor deficits and no sensory deficits noted Sensorium / Orientation: alert Psych mental status grossly normal and thought process normal Skin no wounds Rashes: no rashes MDM MDM MDM Narrative Medical decision making narrative: Three-view x-ray series of the right shoulder were obtained mainly in order to evaluate for calcific tendinitis. It is negative for this on my interpretation and also negative for any fracture or dislocation. Given his symptoms and exam findings, there are multiple potential shoulder pathologies in the differential diagnosis as I discussed with the patient. These include and are not exclusive to the following: Biceps tendinopathy/tendinitis, labral tear, bursitis, rotator cuff tendinopathy, impingement syndrome. Anti-inflammatories indicated however he has a history of TTP, so I think that the best option right now would be a topical NSAID and close outpatient follow-up (given extensive list of allergies to analgesics, diabetes, and history of TTP with much less risk of adverse effects). I will refer him to orthopedics, he follows with hematology for his TTP and so will probably need to be cleared before he gets any steroid injections, but I recommend following up with either PCP or orthopedics as for now physical therapy evaluation would probably be the most appropriate first line treatment. Discharge Plan Triage Chief Complaint: Upper Extremity Injury ED Provider: Ashok Norton Dx/Rx/DC Orders Clinical Impression: Acute pain of right shoulder Instructions: Biceps Tendonitis, ED Shoulder Impingement Syndrome Prescriptions: New diclofenac sodium 1 % gel 2.25 inch topical .qd-tid PRN (Reason: joint pain) 10 Days Qty: 100 0RF No Action lamotrigine 200 MG tablet 200 mg PO QHS quetiapine 400 MG tablet extended release 24 hr 400 mg PO QHS insulin lispro [Humalog KwikPen Insulin] 100 unit/mL Insulin Pen 10 unit subcut TIDCM Qty: 15 0RF Rx Instructions: 10 units with small meal, 20 units with large meal buspirone 10 mg tablet 10 mg PO TID Patient Comments: TAKE 1 TABLET BY MOUTH THREE TIMES DAILY NEEDED Lantus Solostar U-100 Insulin 100 unit/mL (3 mL) insulin pen 30 unit subcut BID Trulicity 0.75 mg/0.5 mL pen injector 0.75 mg SUBCUT QWEEK cyclobenzaprine 10 mg tablet 10 mg PO BID PRN (Reason: muscle spasm) Qty: 10 0RF cephalexin 500 mg capsule 500 mg PO Q6 Qty: 30 0RF cyclobenzaprine [cyclobenzaprine] 10 mg tablet 10 mg PO TID PRN (Reason: Muscle Spasm) Qty: 20 0RF hydrocodone-acetaminophen [hydrocodone-acetaminophen] 5-325 mg tablet 1 tab PO Q4H PRN PRN (Reason: Pain) 2 Days Qty: 10 0RF hydrocodone-acetaminophen 5-325 mg tablet 1 tab PO Q6H PRN PRN (Reason: Pain) 1 Days Qty: 4 0RF Primary Care Provider: Care Physician,No Primary Referrals: Justino Quintana MD [Med Staff - Active Staff] - (call for appt, or may start by following up with your primary care doctor for physical therapy referral as well) Care Physician,No Primary [Primary Care Provider] - Disposition Disposition: Home, Self Care
--- OUTSIDE RECORDS SUMMARY | 2023-11-10 04:35 | XMS RPT_ITS | CCD ---
Author Name Unknown Address [address] [place] [address] Organization [facility] Care Team Providers Care Sports Nutritionist Name Role Phone María Elena BOWEN, Lonnie Primary Care Provider BOGANTZ, LONNIE Primary Care Unavailable BOGANTZ, LONNIE Referring Unavailable ABDIRAHMAN WHITFIELD Attending Unavailable SONIDO DYER Attending Unavailable BOGANTZ, LONNIE Primary Care Unavailable BOGANTZ, LONNIE Referring Unavailable KATRINA SHIRA K Referring Unavailable KATRINASHIRA K Attending Unavailable BOGANTZ, LONNIE Primary Care Unavailable [...] Care Unavailable BOGANTZ, LONNIE Referring Unavailable CATALANDABDIRAHMAN Attending Unavailable AURORAANDABDIRAHMAN R Attending Unavailable BOGANTZ, LONNIE Primary Care Unavailable BOGANTZ, LONNIE Referring Unavailable SELF, SELF Referring Unavailable BOGANTZ, LONNIE Primary Care Unavailable SELF, SELF Referring Unavailable KATRINA SHIRA K Attending Unavailable BOGANTZ, LONNIE Primary Care Unavailable BOGANTZ, LONNIE Primary Care Unavailable YOSEPH QURESHI Attending Unavailable YOSEPH QURESHI Referring Unavailable BOGANTZ, LONNIE Primary Care Unavailable FARWIG, SONIDO Attending Unavailable BOGANTZ, LONNIE Primary Care Unavailable BOGANTZ, LONNIE Referring Unavailable FARWIG, SONIDO Attending Unavailable BOGANTZ, LONNIE Primary Care Unavailable BOGANTZ, LONNIE Referring Unavailable SELF, SELF Referring Unavailable BOGANTZ, LONNIE Attending Unavailable BOGANTZ, LONNIE Primary Care Unavailable QURESHI, YUCHI Attending Unavailable BOGANTZ, LONNIE Primary Care Unavailable QURESHI, YUCHI Referring Unavailable BOGANTZ, LONNIE Primary Care Unavailable QURESHI, YUCHI Attending Unavailable QURESHI, YUCHI Referring Unavailable FARWIG, SONIDO Attending Unavailable BOGANTZ, LONNIE Primary Care Unavailable BOGANTZ, LONNIE Referring Unavailable FARWIG, SONIDO Attending Unavailable BOGANTZ, LONNIE Referring Unavailable BOGANTZ, LONNIE Primary Care Unavailable FRAN JARRETT Attending Unavailable BOGANTZ, LONNIE Primary Care Unavailable BOGANTZ, LONNIE Referring Unavailable QURESHI, YUCHI Attending Unavailable BOGANTZ, LONNIE Primary Care Unavailable QURESHI, YUCHI Referring Unavailable Izabela Turner Primary Care Provider IZABELA TURNER Primary Care Unavailable OK RAI Attending Unavailable GENERIC PROVIDER, NO ASSIGNED PCP Primary Care Unavailable PHYSICIAN, NONE Primary Care Physician Unavailab CHINYERE Damico DO Attending Unavailable PHYSICIAN, NONE Primary Care Unavailable Allergies Allergy Classification Reported Allergen(s) Allergy Type Date of Onset Reaction(s) Facility (17 sources) Aluminum aspirin Drug Allergy 9 [facility] (17 sources) Dicyclomine Drug Allergy 0 [facility] (20 sources) fentaNYL; Translations: [fentanyl] Drug Allergy 3 Nausea Only, Hives [facility] (14 sources) Latex Propensity to adverse reactions to drug 1 rash [facility] (20 sources) Methadone; Translations: [methadone] Drug Allergy 2 Nausea and Vomiting, Hives, Other [facility] Work Phone: (18 sources) Morphine; Translations: [morphine] Drug Allergy 0 [facility] (18 sources) predniSONE; Translations: [prednisone] Drug Allergy 0 Nausea and Vomiting [facility] (17 sources) Propoxyphene Drug Allergy 1 [facility] (20 sources) traMADol; Translations: [tramadol] Drug Allergy 5 Dyspnea, Hives, Shortness of breath, Dyspnea (finding) [facility] (17 sources) Aspirin Buffered Propensity to adverse reactions to drug 1 Swelling [facility] (13 sources) *Adhesive Tape Propensity to adverse reactions 9 Rash [facility] (3 sources) Adhesive Tape Drug Allergy 2 Rash [facility] (2 sources) Ketorolac Allergy to substance 2 [facility] (2 sources) Prednisone Allergy to substance 6 Nausea And Vomiting, Rash [facility] (2 sources) Fentanyl And Related Drug Intolerance 6 Hives, Nausea Only [facility] (1 source) ALLERGIES NOT ON FILE; Translations: [ALLERGIES NOT ON FILE] Propensity to adverse reactions (disorder) [facility] 2 Repository (1 source) Aspirin; Translations: [aspirin] Drug Allergy thins blood [facility] (1 source) cyclobenzaprine; Translations: [cyclobenzaprine ] Drug Allergy [facility] (1 source) Dicyclomine; Translations: [dicyclomine] Drug Allergy rash [facility] (1 source) GRAPEFRUIT EXTRACT Drug Allergy [facility] (1 source) Ketorolac; Translations: [ketorolac] Drug Allergy Dyspnea (finding) [facility] (1 source) Naproxen; Translations: [naproxen] Drug Allergy [facility] Medications Current Medications Medication Drug Class(es) Dates Sig (Normalized) Sig (Original) acetaminophen 250 mg / aspirin 250 mg / caffeine 65 mg oral tablet (1 source) Platelet Aggregation Inhibitor, Nonsteroidal Anti-inflammatory Drug, Central Nervous System Stimulant, Methylxanthine Start: 07-10-2018 take 1 tablet by mouth every six hours as needed for headache Excedrin Extra Strength oral tab (250/250/65) Dose = 3 tab(s), Oral, q6h, PRN for headache Start Date: 07/10/18 Status: Ordered acetaminophen 325 mg / HYDROcodone bitartrate 5 mg oral tablet (2 sources) Opioid Agonist Start: 09-16-2023 End: 09-19-2023 take 1 tablet by mouth every six hours as needed for pain HYDROcodone-aceta minophen ([place]) 5-325 MG tablet Indications: Gluteal abscess Take [...] mellitus without complications] Onset: 06-22-2021 06-22-2021 Chronic Esophageal disorders (1 source) Gastroesophageal reflux disease 11-15-2014 Chronic Essential hypertension (1 source) Hypertensive disorder 11-15-2014 Chronic Other aftercare (1 source) Patient encounter status; Translations: [Encounter for follow-up examination after completed treatment for conditions other than malignant neoplasm] Episodic Other aftercare (2 sources) 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; Translations: [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] Onset: 02-13-2023 Episodic [...] 09-29-2022 09-29-2022 Chronic Other nervous system disorders (2 sources) Carpal tunnel syndrome of right wrist; Translations: [Carpal tunnel syndrome, right upper limb] Onset: 11-03-2023 Chronic Other nervous system disorders (2 sources) Carpal tunnel syndrome, right upper limb; Translations: [Carpal tunnel syndrome, right upper limb] Onset: 09-29-2022 Chronic Other nervous system disorders (2 sources) Other chronic pain; Translations: [Other chronic pain] Onset: 09-16-2022 Chronic Other nervous system disorders (1 source) Chronic back pain greater than three months duration 03-30-2015 Chronic Other non-traumatic joint disorders (1 source) Pain of right wrist; Translations: [Pain in right wrist] Onset: 11-03-2023 Episodic Other nutritional; endocrine; and metabolic disorders (3 [...] microangiopathy; 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] Onset: 06-20-2021 Unclassified (1 source) ttp/thrpmbocytopenia Onset: 02-19-2007 02-19-2007 Past or Other Problems Problem Classification Problem [...] Date Time Vital Sign Value Performing Clinician Summer winter 11-03-2023 09:44-0500 Body height 175.3 cm CHINYERE KASPER DO [facility] 11-03-2023 09:44-0500 Body temperature 97.52 [degF] CHINYERE KASPER DO [facility] 11-03-2023 09:44-0500 Body weight 127.3 kg NIDAL CHOUJAA DO [facility] 11-03-2023 09:44-0500 Diastolic Blood Pressure Non-Invasive 91 mm[Hg] NIDAL CHOUJAA DO [facility] 11-03-2023 09:44-0500 Heart rate 83 /min NIDAL CHOUJAA DO [facility] 11-03-2023 09:44-0500 Respiratory rate 18 /min NIDAL CHOUJAA DO [facility] 11-03-2023 09:44-0500 Systolic Blood Pressure Non-Invasive 143 mm[Hg] NIDAL CHOUJAA DO [facility] 09-16-2023 14:18-0500 Body height 175.3 cm Ok Mudrakola DO Work Phone: [facility] [employer] 09-16-2023 14:18-0500 Body mass index (BMI) [Ratio] 42.83 kg/m2 Ok Mudrakola DO Work Phone: [facility] [employer] 09-16-2023 14:18-0500 Body temperature 98.1 [degF] Ok Mudrakola DO Work Phone: [facility] [employer] 09-16-2023 14:18-0500 Body weight 131.54 kg Ok Mudrakola DO Work Phone: [facility] [employer] 09-16-2023 14:18-0500 Diastolic blood pressure 108 mm[Hg] Ok Mudrakola DO Work Phone: [facility] [employer] 09-16-2023 14:18-0500 Heart rate 99 /min Ok Mudrakola DO Work Phone: [facility] [employer] 09-16-2023 14:18-0500 Respiratory rate 17 /min Ok Mudrakola DO Work Phone: [facility] 09-16-2023 14:18-0500 SaO2% (BldA) [Mass fraction] 97 % Ok Rai DO Work Phone: [facility] 09-16-2023 14:18-0500 Systolic blood pressure 163 mm[Hg] Ok Rai DO Work Phone: [facility] 02-13-2023 09:57-0400 Body mass index (BMI) [Ratio] 40.87 kg/m2 [facility] Work Phone: [facility] 02-13-2023 09:57-0400 Body weight 134.63 kg [facility] Work Phone: [facility] 02-13-2023 09:57-0400 Diastolic blood pressure 88 mm[Hg] [facility] Work Phone: [facility] 02-13-2023 09:57-0400 Heart rate 88 /min Sonido [facility] Work Phone: [facility] 02-13-2023 09:57-0400 Systolic blood pressure 134 mm[Hg] [facility] Work Phone: [facility] 10-27-2022 13:07-0500 Body height 181.5 cm Lonnie Ring [employer] Work Phone: [facility] 10-27-2022 13:07-0500 Body mass index (BMI) [Ratio] 39.66 kg/m2 Lonnie Ring [employer] Work Phone: [facility] 10-27-2022 13:07-0500 Body temperature 98.4 [degF] Lonnie Ring [employer] Work Phone: [facility] 10-27-2022 13:07-0500 Body weight 130.64 kg Lonnie Ring [employer] Work Phone: [facility] 10-27-2022 13:07-0500 Diastolic blood pressure 74 mm[Hg] Lonnie Ring [employer] Work Phone: [facility] 10-27-2022 13:07-0500 Heart rate 106 /min Lonniefarshad Ring [employer] Work Phone: [facility] 10-27-2022 13:07-0500 Respiratory rate 18 /min Lonniefarshad Ring [employer] Work Phone: [facility] 10-27-2022 13:07-0500 SaO2% (BldA) [Mass fraction] 95 % Lonniefarshad Ring [employer] Work Phone: [facility] 10-27-2022 13:07-0500 Systolic blood pressure 122 mm[Hg] Lonnie Ring [employer] Work Phone: [facility] 10-27-2022 09:01-0500 Body height 175.3 cm Abdirahman Whitfield MD Work Phone: [facility] 10-27-2022 09:01-0500 Body mass index (BMI) [Ratio] 42.65 kg/m2 Abdirahman Whitfield MD Work Phone: [facility] 10-27-2022 09:01-0500 Body temperature 98.49 [degF] Abdirahman Whitfield MD Work Phone: [facility] 10-27-2022 09:01-0500 Body weight 131 kg Abdirahman Whitfield MD Work Phone: [facility] 10-27-2022 09:01-0500 Diastolic blood pressure 79 mm[Hg] Abdirahman Whitfield MD Work Phone: [facility] 10-27-2022 09:01-0500 Heart rate 115 /min Abdirahman Whitfield MD Work Phone: [facility] 10-27-2022 09:01-0500 Respiratory rate 16 /min Abdirahman Whitfield MD Work Phone: [facility] 10-27-2022 09:01-0500 SaO2% (BldA) [Mass fraction] 96 % Abdirahman Whitfield MD Work Phone: [facility] 10-27-2022 09:01-0500 Systolic blood pressure 124 mm[Hg] Abdirahamn Whitfield MD Work Phone: [facility] 07-21-2022 10:47-0400 Diastolic blood pressure 86 mm[Hg] Abdirahman Whitfield MD Work Phone: [facility] 07-21-2022 10:47-0400 Heart rate 89 /min Abdirahman Whitfield MD Work Phone: [facility] 07-21-2022 10:47-0400 Systolic blood pressure 126 mm[Hg] Abdirahman Whitfield MD Work Phone: [facility] 07-21-2022 09:48-0400 Body height 175.3 cm Abdirahman Whitfield MD Work Phone: [facility] 07-21-2022 09:48-0400 Body mass index (BMI) [Ratio] 43.56 kg/m2 Abdirahman Whitfield MD Work Phone: [facility] 07-21-2022 09:48-0400 Body temperature 97.81 [degF] Abdirahman Whitfield MD Work Phone: [facility] 07-21-2022 09:48-0400 Body weight 133.81 kg Abdirahman Whitfield MD Work Phone: [facility] 07-21-2022 09:48-0400 Respiratory rate 18 /min Abdirahman Whitfield MD Work Phone: [facility] 07-21-2022 09:48-0400 SaO2% (BldA) [Mass fraction] 96 % Abdirahman Whitfield MD Work Phone: [facility] 05-13-2022 08:59-0400 Body height 175.3 cm Fran Jarrett MD Work Phone: [facility] 05-13-2022 08:59-0400 Body mass index (BMI) [Ratio] 42.83 kg/m2 Fran Jarrett MD Work Phone: [facility] 05-13-2022 08:59-0400 Body temperature 96.91 [degF] Fran Jarrett MD Work Phone: [facility] 05-13-2022 08:59-0400 Body weight 131.54 kg Fran Jarrett MD Work Phone: [facility] 05-13-2022 08:59-0400 Heart rate 80 /min Fran Jarrett MD Work Phone: [facility] 05-13-2022 08:59-0400 SaO2% (BldA) [Mass fraction] 97 % Fran Jarrett MD Work Phone: [facility] 04-14-2022 08:36-0400 Body height 175.3 cm Abdirahman Whitfield MD Work Phone: [facility] 04-14-2022 08:36-0400 Body temperature 97.81 [degF] Abdirahman Whitfield MD Work Phone: [facility] 04-14-2022 08:36-0400 Diastolic blood pressure 83 mm[Hg] Abdirahman Whitfield MD Work Phone: [facility] 04-14-2022 08:36-0400 Heart rate 87 /min Abdirahman Whitfield MD Work Phone: [facility] 04-14-2022 08:36-0400 Respiratory rate 18 /min Abdirahman Whitfield MD Work Phone: [facility] 04-14-2022 08:36-0400 SaO2% (BldA) [Mass fraction] 96 % Abdirahman Whitfield MD Work Phone: [facility] 04-14-2022 08:36-0400 Systolic blood pressure 111 mm[Hg] Abdirahman Whitfield MD Work Phone: [facility] 03-30-2022 13:16-0400 Body height 175.3 cm Lonnie Giovannyz [employer] Work Phone: [facility] 03-30-2022 13:16-0400 Body mass index (BMI) [Ratio] 42.77 kg/m2 Lonnie Bogantz [employer] Work Phone: [phone](268)[phone] [place] [address] 03-30-2022 13:16-0400 Body temperature 97.5 [degF] Lonnie Bogantz [employer] Work Phone: 1(593)[phone] [address] 03-30-2022 13:16-0400 Body weight 131.36 kg Lonnie Lindaantz [employer] Work Phone: [facility] 03-30-2022 13:16-0400 Diastolic blood pressure 80 mm[Hg] Lonnie Lindaantz [employer] Work Phone: [facility] 03-30-2022 13:16-0400 Heart rate 110 /min Lonnie Bogantz [employer] Work Phone: [facility] 03-30-2022 13:16-0400 Respiratory rate 18 /min Lonnie Lindaantz [employer] Work Phone: [facility] 03-30-2022 13:16-0400 SaO2% (BldA) [Mass fraction] 98 % Lonnie Ring [employer] Work Phone: [phone](448)[phone] [address] 03-30-2022 13:16-0400 Systolic blood pressure 120 mm[Hg] Lonnie Ring [employer] Work Phone: 5(674)[phone] [address] 01-31-2022 15:07-0400 Body height 175.3 cm Lonnie Ring [employer] Work Phone: 1(517)[phone] [address] 01-31-2022 15:07-0400 Body mass index (BMI) [Ratio] 44.75 kg/m2 Lonnie Ring [employer] Work Phone: 1(813)[phone] [place] [address] 01-31-2022 15:07-0400 Body temperature 98.29 [degF] Lonnie Ring [employer] Work Phone: 7(931)[phone] [address] 01-31-2022 15:07-0400 Body weight 137.44 kg Lonnie Ring [employer] Work Phone: 0(306)[phone] [address] 01-31-2022 15:07-0400 Diastolic blood pressure 74 mm[Hg] Lonnie Ring [employer] Work Phone: 1(641)629-105398 [address] 01-31-2022 15:07-0400 Heart rate 72 /min Lonnie Ring [employer] Work Phone: 4(070)[phone] [address] 01-31-2022 15:07-0400 SaO2% (BldA) [Mass fraction] 99 % Lonnie Ring [employer] Work Phone: [phone](063)[phone] [address] 01-31-2022 15:07-0400 Systolic blood pressure 106 mm[Hg] Lonnie Ring [employer] Work Phone: [phone](446)[phone] [address] 01-27-2022 08:11-0400 Body height 175.3 cm Fran Jarrett MD Work Phone: [facility] 01-27-2022 08:0 Body mass index (BMI) [Ratio] 44.01 kg/m2 Fran Jarrett MD Work Phone: [facility] 01-27-2022 08:040 Body temperature 97 [degF] Fran Jarrett MD Work Phone: [facility] 01-27-2022 08:0400 Body weight 135.17 kg Fran Jarrett MD Work Phone: [facility] Encounters Encounter Date Encounter Type Care Provider Facility Start: 11-03-2023 End: 11-03-2023 Emergency department patient visit CHINYERE KASPER DO Facility:B Start: 11-03-2023 End: 11-03-2023 Emergency department patient visit CHINYERE KASPER DO [facility] Start: 09-16-2023 End: 09-16-2023 Emergency department patient visit [facility] Start: 09-16-2023 End: 09-16-2023 Emergency department patient visit Ok Rai DO Work Phone: [facility] ED Procedures Date Procedure Procedure Detail Performing Clinician Start: 09-16-2023 Incision & drainage abscess simple/single Ok Rai DO Work Phone: Start: 02-13-2023 Hemoglobin glycosylated a1c Lonniedamon Mckeonheike [employer] Work Phone: Start: 10-27-2022 CBC AND ELECTRONIC DIFF Abdirahman Whitfield MD Work Phone: Start: 10-27-2022 Complete blood count with white cell differential, automated Abdirahman Whitfield MD Work Phone: Start: 10-27-2022 Lactate dehydrogenase ldh Abdirahman Whitfield MD Work Phone: Start: 10-06-2022 Mri any jt lower ext rem w/o contrast matrl Mark Smith DPM Work Phone: Start: 07-21-2022 CBC AND ELECTRONIC DIFF Abdirahman Whitfield MD Work Phone: Start: 07-21-2022 Complete blood count with white cell differential, automated Abdirahman Whitfield MD Work Phone: Start: 07-21-2022 Hemoglobin glycosylated a1c Lonnie Mckeonheike [employer] Work Phone: Start: 07-21-2022 Lipid panel Lonnie Adriel tinoco [employer] Work Phone: Start: 04-14-2022 CBC AND ELECTRONIC DIFF Abdirahman Whitfield MD Work Phone: Start: 04-14-2022 Complete blood count with white cell differential, automated Abdirahman Whitfield MD Work Phone: Start: 04-14-2022 Lactate dehydrogenase ldh Abdirahman Whitfield MD Work Phone: Start: 03-30-2022 Hemoglobin glycosylated a1c Lonnie Mckeoncataescobar [employer] Work Phone: Start: 02-08-2022 Radex foot complete minimum 3 views Serge Murdock DPM Work Phone: Start: 01-27-2022 Radex spine lumbosac ral minimum 4 views Fran Jarrett MD Work Phone: Cardiac tamponade (disorder) NIDAL CHOUJAA DO Ophthalmic surgery (qualifier value) NIDAL CHOUJAA DO Plan of Treatment Date Care Activity Detail Author Start: 2041 RSV Immunization aged 60 or older (1 - 1-dose 60+ series) RSV Immunization aged 60 or older (1 - 1-dose 60+ series) [facility] [employer] Start: 10-27-2032 Tetanus vaccination TETANUS [facility] enter Start: 2031 Zoster Vaccines (1 of 2) Zoster Vaccines (1 of 2) [facility] Start: 10-27-2023 PREVENTATIVE HEALTH VISIT PREVENTATIVE HEALTH VISIT [facility] Start: 09-29-2023 Urine screening for protein URINE MICROALBUMIN TEST [facility] Start: 08-16-2023 Hemoglobin A1c measurement HBA1C TEST [facility] Start: 07-21-2023 Lipid panel LIPIDS [facility] enter Start: 07-21-2023 LIPIDS LIPIDS [facility] enter Start: 07-17-2023 End: 07-17-2023 Patient encounter procedure 07/17/2023 Office Visit Family Medicine Sonido Dyer, [facility] [address] [place] [address] [facility] [place] Start: 06-16-2023 COVID-19 Vaccine ( season) COVID-19 Vaccine ( season) [facility] Start: 06-16-2023 Influenza vaccination Influenza Vaccine (#1) [facility] Start: 04-13-2023 End: 04-13-2023 Patient encounter procedure 04/13/2023 Office Visit Hematology Abdirahman Whitfield MD [address] [facility] [address] [place] [address] Division of Hematology & Oncology Start: 03-02-2023 End: 03-02-2023 Patient encounter procedure 03/02/2023 Office Visit Sports Medicine Johana Blackwood MD [address] [facility] [address] [place] [id number] [facility] [place] Start: 02-15-2023 End: 02-15-2023 Patient encounter procedure 02/15/2023 Office Visit Orthopaedics Johana Blackwood MD [address] [place] [id number] Hand and [facility] [place] Start: 02-02-2023 End: 02-02-2023 Patient encounter procedure 02/02/2023 Office Visit [facility] Sonido Dyer, [facility] [address] [place] [address] [facility] [place] Start: 01-19-2023 Hemoglobin A1c measurement HBA1C TEST [facility] Start: 01-19-2023 End: 01-19-2023 Patient encounter procedure 01/19/2023 Office Visit Hematology Abdirahman Whitfield MD [address] [facility] [address] [place] [address] Division of Hematology & Oncology Start: 12-14-2022 End: 12-14-2022 Patient encounter procedure 12/14/2022 Office Visit Sports Medicine Efrain Berry MD [address] [place] [address] [facility] [place] Start: 11-03-2022 End: 11-03-2022 Telemedicine consultation with patient 11/03/2022 Telemedicine [facility] Sonido Dyer, [facility] [address] [place] [address] [facility] [place] Start: 10-27-2022 End: 10-26-2023 [id number] ACTIVITY AND IGG AB W/REFLEX TO INHIBITOR [facility] Immunizations Immunization Date Immunization Notes Care Provider Fa cility 10-27-2022 diphtheria, tetanus toxoids and acellular pertussis vaccine, unspecified formulation Lonnie BOEWN Work Phone: [facility] 10-27-2022 tetanus toxoid, redu sunny diphtheria toxoid, and acellular pertussis vaccine, adsorbed; Translations: [TDAP VACCINE >10YO 0.5ML IM] Abdirahman Whitfield MD Work Phone: [facility] 09-28-2021 influenza virus vaccine, unspecified formulation Abdirahman Whitfield MD Work Phone: [facility] 04-29-2021 COVID-19 vaccine, AD 26, Karla 0.5 ML Fran Jarrett MD Work Phone: [facility] 01-08-2016 tetanus toxoid, redu sunny diphtheria toxoid, and acellular pertussis vaccine, adsorbed NIDAL CHOUJAA DO [facility] Payers Date Payer Category Payer Medicaid [facility] MEDICAID ODM [id number] 2022-Present [phone] [address] [place] [address] Medicaid HMO [id number]. [id number] 2022 Unknown [id number] 2022 Unknown [id number] 2015 Unknown [id number]. 1.13.172.2.7.3. [id number] 2015 Unknown [id number] 1981 Unknown [id number] 2.840.1.473332.3.579.2.594 1981 Unknown [id number] 2.840.1.558690.3.579.2.594 1981 Unknown [id number] 2.840.1.278382.3.579.2.594 1981 Unknown [id number] 2.0.1.442028.3.579.2.594 1981 Unknown [id number] 2.840.1.155337.3.579.2.594 1981 Unknown [id number] 2.840.1.931243.3.579.2.594 1981 Unknown [id number] 2.840.1.054019.3.579.2.594 1981 Unknown [id number] 2.840.1.547508.3.579.2.594 1981 Unknown [id number] 2.840.1.966964.3.579.2.594 1981 Unknown [id number] 2.840.1.403992.3.579.2.594 1981 Unknown [id number] 2.840.1.161893.3.579.2.594 1981 Unknown [id number] 2.840.1.592384.3.579.2.594 1981 Unknown [id number] 2.840.1.940256.3.579.2.594 1981 Unknown [id number] 2840.1.593074.3.579.2.594 1981 Unknown [id number] 2.840.1.229719.3.579.2.594 1981 Unknown [id number] .840.1.495891.3.579.2.594 1981 Unknown [id number] 2.840.1.494649.3.579.2.594 1981 Unknown [id number] 840.1.297824.3.579.2.594 1981 Unknown [id number] 840.1.590231.3.579.2.594 1981 Unknown [id number] 840.1.702092.3.579.2.594 1981 Unknown [id number] 840.1.892188.3.579.2.594 1981 Unknown [id number] 2.840.1.627241.3.579.2.594 1981 Unknown [id number] 2.840.1.385430.3.579.2.1243 1981 Unknown [id number] 2.16.840.1.745152.3.579.2.627 Social History Date Type Detail Facility Start: 02-12-1994 End: 10-27-2022 Tobacco smoking status NHIS Smokes tobacco daily [facility] Start: 02-12-1994 History of tobacco use Cigarette Smo ker [facility] Start: 09-22-2021 End: 09-16-2023 Cigarettes smoked current (pack per day) - Reported 1 [facility] Start: 09-22-2021 End: 10-27-2022 Tobacco use and exposure Former smokeless tobacco user [facility] Start: 01-27-2022 End: 09-16-2023 Alcohol intake Current non-drinker of alcohol (finding) [facility] Start: 09-22-2021 End: 09-16-2022 Tobacco Comment Keep's me calm in a stressful situation [facility] Start: 1980 Sex Assigned At Not on file [facility] Start: 01-15-2022 End: 10-27-2022 Exposure to SARS-CoV-2 (event) Unable to assess [facility] Start: 09-26-2022 End: 10-06-2022 Exposure to SARS-CoV-2 (event) Not sure [facility] Start: 09-16-2023 Alcohol Use Disorder Identification Test - Consumption [AUDIT-C] [facility] How often to you hav e a drink containing alcohol? Never [facility] How many standard dr inks containing alcohol do you have on a typical day? Patient does not drink [facility] Procedure Code Equipment Code Equipment Origin al Text Equipment Identifier Dates Cath Dial Hemosp lit 19cm [id number] Start: 10-26-2012 Cath Dial Hemosp lit 19cm [id number] Start: 11-02-2012 Use new needle w ith each insulin injection. [id number] Start: 10-20-2021 Use new needle w ith each insulin injection. [id number] Start: 05-26-2022 Goals Date Patient Goal Desired Activity /State Functional Status Date Assessment Result Facility 11-03-2023 Functional Status ID band on, Call device within reach, Bed in low position, Wheels locked, Upper/Half-Length side-rails up [facility] Mental Status Date Assessment Result Facility 11-03-2023 Mental Status Oriented x 4 [facility] Clinical Notes 01-27-2022 to 11-03-2023 Nallely Roland RN - 09/16/2023 3:55 PM Connie Roland RN - 09/16/2023 3:55 PM Elian Rai DO - 09/16/2023 2:02 PM Connie Roland RN - 09/16/2023 2:02 PM Kenneyd Instructions Note Date & Type Note Facility 11-03-2023 Hospital Discharg e instructions Patient Education 11/03/2023 10:14:50 Carpal Tunnel Syndrome Carpal Tunnel Syndrome Carpal tunnel syndrome is a painful condition of the wrist and arm. It is caused by pressure on the median nerve. The median nerve is one of the nerves that give feeling and movement to the hand. It passes through a tunnel in the wrist called the carpal tunnel. This tunnel is made up of bones and ligaments. Narrowing of this tunnel or swelling of the tissues inside the tunnel puts pressure on the median nerve. This causes numbness, pins and needles, or electric shooting pains in your hand and forearm. Often the pain is worse at night and may wake you when you are asleep. Carpal tunnel syndrome may occur during and with use of control pills. It is more common in workers who must often bend their wrists. It is also common in people who work with power tools that cause strong vibrations. Home care Rest the painful wrist. Avoid repeated bending of the wrist back and forth. This puts pressure on the median nerve. Avoid using power tools with strong vibrations. If you were given a splint, wear it at night while you sleep. You may also wear it during the day for comfort. Move your fingers and wrists often to prevent stiffness. Elevate your arms on pillows when you lie down. Try using the unaffected hand more. Try not to hold your wrists in a bent, downward position. Sometimes changes in the work place may ease symptoms. If you type most of the day, it may help to change the position of your keyboard or add a wrist support. Your wrist should be in a neutral position and not bent back when typing. You may use ohpi-xgp-dbontvj pain medicine to treat pain and inflammation, unless another medicine was prescribed. Anti-inflammatory pain medicines, such as ibuprofen or naproxen may be more effective than acetaminophen, which treats pain, but not inflammation. If you have chronic liver or kidney disease or ever had a stomach ulcer or gastrointestinal bleeding, talk with your healthcare provider before using these medicines. Opioid pain medicine will only give temporary relief and does not treat the problem. If pain continues, you may need a shot of a steroid drug into your wrist. If the above methods fail, you may need surgery. This will open the carpal tunnel and release the pressure on the trapped nerve. Follow-up care Follow up with your healthcare provider, or as advised. If X-rays were taken, you will be notified of any new findings that may affect your care. When to seek medical advice Call your healthcare provider right away if any of these occur: Pain not improving with the above treatment Fingers or hand become cold, blue, numb, or tingly Your whole arm becomes swollen or weak [id number] [employer]. [address] [place] [address]. All rights reserved. This information is not intended as a substitute for professional medical care. Always follow your healthcare professional's instructions. Follow Up Care 11/03/2023 09:38:20 With:HENRY BAARJAS MD Address: [address] [place] [address] [place] [address] [phone] When:2-4 days With:Follow up with primary care provider Address:Unknown When:2-4 days With:Call Physician Referral Address:Unknown When:2-4 days [facility] 11-03-2023 Note Discharge Instructions Thank you for allowing [facility] to assist you with your healthcare needs. The following is important discharge information regarding your hospital visit. Diagnosis from Today's Visit Carpal tunnel syndrome, right Right wrist pain Wrist pain-swelling What to Do Next Instructions from Your Care Team Discharge Home Equipment - Ordered -- Splint, wrist & thumb Right, 99 month(s), 11/03/23 9:59:00 EST Discharge Return to Work, School, or Sports (Return to Work, School, or Sports) - Ordered -- 11/04/23, May return to: work, 11/03/23 10:15:00 EST Post Acute Orders No qualifying data available. You Need to Schedule the Following Appointments Follow Up with HENRY BARAJAS MD When Within 2-4 days Where: [address] [place] [address]- [phone] Follow Up with Follow up with primary care provider When Within 2-4 days Follow Up with Call Physician Referral When Within 2-4 days Allergies Bentyl (rash) Deltasone (prednisone) (swelling) Flexeril Grapefruit Latex (rash) NSAIDS Tape Toradol (SOB - Shortness of breath) Ultram (SOB - Shortness of breath) aspirin (thins blood) fentaNYL (nausea) methadone (diff swallowing) morphine (rash) Medications Please ask your primary doctor or pharmacist before taking any other medication not listed, including over the counter drugs, herbal medications, vitamins and or supplements as they may interact with your home medications. What How Much When Instructions Last Dose Unchanged APAP/ ASA/ caffeine (Excedrin Extra Strength oral tab (250/ 250/ 65)) 3 tab(s) by mouth Every 6 hours as needed for for headache Please take this list to your next doctor s visit. Bring all medications you take, including over the counter medications, herbals and other supplements with you to your doctor s visit. Patients and families are reminded to discard old lists and to update any records with all medication providers or retail pharmacies. Education Materials Carpal Tunnel Syndrome Carpal tunnel syndrome is a painful condition of the wrist and arm. It is caused by pressure on the median nerve. The median nerve is one of the nerves that give feeling and movement to the hand. It passes through a tunnel in the wrist called the carpal tunnel. This tunnel is made up of bones and ligaments. Narrowing of this tunnel or swelling of the tissues inside the tunnel puts pressure on the median nerve. This causes numbness, pins and needles, or electric shooting pains in your hand and forearm. Often the pain is worse at night and may wake you when you are asleep. Carpal tunnel syndrome may occur during and with use of control pills. It is more common in workers who must often bend their wrists. It is also common in people who work with power tools that cause strong vibrations. Home care Rest the painful wrist. Avoid repeated bending of the wrist back and forth. This puts pressure on the median nerve. Avoid using power tools with strong vibrations. If you were given a splint, wear it at night while you sleep. You may also wear it during the day for comfort. Move your fingers and wrists often to prevent stiffness. Elevate your arms on pillows when you lie down. Try using the unaffected hand more. Try not to hold your wrists in a bent, downward position. Sometimes changes in the work place may ease symptoms. If you type most of the day, it may help to change the position of your keyboard or add a wrist support. Your wrist should be in a neutral position and not bent back when typing. You may use pird-gti-vfpngpl pain medicine to treat pain and inflammation, unless another medicine was prescribed. Anti-inflammatory pain medicines, such as ibuprofen or naproxen may be more effective than acetaminophen, which treats pain, but not inflammation. If you have chronic liver or kidney disease or ever had a stomach ulcer or gastrointestinal bleeding, talk with your healthcare provider before using these medicines. Opioid pain medicine will only give temporary relief and does not treat the problem. If pain continues, you may need a shot of a steroid drug into your wrist. If the above methods fail, you may need surgery. This will open the carpal tunnel and release the pressure on the trapped nerve. Follow-up care Follow up with your healthcare provider, or as advised. If X-rays were taken, you will be notified of any new findings that may affect your care. When to seek medical advice Call your healthcare provider right away if any of these occur: Pain not improving with the above treatment Fingers or hand become cold, blue, numb, or tingly Your whole arm becomes swollen or weak [phone] [employer]. [address] [place] [address], [place] [address]. All rights reserved. This information is not intended as a substitute for professional medical care. Always follow your healthcare professional's instructions. Additional Information VACCINATE! IT SAVES LIVES! Members of the community who have not yet received the COVID-19 vaccine and would like to receive it can visit one of [facility] vaccine clinics. There are many vaccine clinic locations within the [facility]. For locations and available times, please visit [email or web address].[place]. gov/. It is important to note that some COVID mobile vaccine clinics are held outdoors and may be canceled in rainy or stormy conditions. To learn more about pediatric vaccinations (ages 5-11), we invite you to visit the [facility] webpage. https://www.[email or web address].org/p ages/0743-Dyqme-Igjgojclrkl-Freq xyfdio-Djran-Gmghawcnv.html To learn more about the COVID-19 vaccine, we invite you to visit the CDC website for a list of frequently asked questions. https://www.cdc.gov/coronavirus/ 2019-ncov/vaccines/faq.html [facility] Patient Portal Access Instructions: Stay connected with your healthcare team and access your personal medical information anytime with the [facility] Patient Portal. If you would like a full copy of your medical records please contact the [facility] Medical Records Department Monday through Monday between 8a.m. and 4:30p.m. Please follow the directions below to access the portal: 1.Access the email account you provided upon registration to the hospital.2.Look for an invitation email from [facility].3.Open the email and access the invitation link: Accept Invitation to [facility].Fill in the required ayon to create your account. Sign into www.[employer] with your username and password that you created in the above steps to stay up to date. You can then view a summary of results, a summary of your visits, and the ability to download your summaries to your computer or send the information securely to a physician. Remember that your healthcare information is confidential, so carefully consider who you will allow to register on the [facility] Patient Portal for access to your information. You can also access the [facility] Patient Portal on the [employer]. Simply click on Health Records under Health Data and then click on the [employer] logo. HOW TO SAFELY DISPOSE OF PRESCRIPTION MEDICATIONS Please use one of the following methods to safely dispose of your unused medications. 1.Use a drug disposal kit: the drug disposal pouch allows you to safely discard your old and unused drugs. Ask your nurse to give you one when you are discharged.2.Visit a local take-back location: Many local pharmacies and police departments have programs that collect old and unwanted prescription drugs. Call your local pharmacy or go to http://[employer].Blendspace/3N3Ck7h to find one close to you.3.Make use of household items: Use cat litter or old coffee grounds to dispose medications if other options are not available. Mix your drugs with these household products, seal them in an airtight container and throw it into the garbage. Call [facility]: [phone] to be sure your drugs can be disposed of in this way. Some medicines may require a different approach.4.Never flush your medications down the toilet. IF YOU HAVE BEEN PRESCRIBED AN OPIOIDS FOR PAIN If you have been prescribed an opioid (such as hydrocodone, oxycodone or morphine), it is critical to understand the possible side effects and risks of opioid pain medications. Even when taken as directed, opioids can have several side effects including: Tolerance, meaning you might need to take more of a medication for the same pain relief. Nausea, vomiting and/or constipation. Sleepiness, dizziness, dry mouth, confusion, depression or itching. Physical dependence, meaning you have withdrawal symptoms when a medication is stopped ? this can develop within a few days. KNOW YOUR RESPONSIBILITIES It is important to know exactly how much and how often to take the opioid pain medications you are prescribed. Never take opioids in higher amounts or more often than prescribed. Do not combine opioids with alcohol or other drugs that cause drowsiness, such as benzodiazepines, also known as benzos, including diazepam and alprazolam, muscle relaxants or sleep aids. Never sell or share prescription opioids. This is illegal. Store opioids in a secure place and out of reach of others (including children, family, friends and visitors). The last page(s) of this document has been signed and retained as a CHART COPY Signatures Patient Education Materials Carpal Tunnel Syndrome Medication Leaflets My discharge plan and instructions have been reviewed and explained to me and I,JAIRO ADKINS JR understand my current condition and have read and understand these discharge instructions. I have received a written copy of the plan/instructions. If I have questions, I am aware that I should contact my doctor. Patient/Customer Service Technician Signature: Date/Time: Relationship to Patient: Witness Name/Signature: Date/Time: [facility] 09-16-2023 Emergency department Note Discharge instructions, follow up care, and pain management discussed with patient. All questions answered, there are no further questions at this time. Patient ambulated off the unit independently at discharge. Nallely Roland RN 09/16/23 1556 [facility] 09-16-2023 Emergency department Note Discharge instructions, [...] 9 ) Medications lidocaine-EPINEPHrine (Xylocaine W/EPI) 1 %-1:245196 injection 10 mL (has no administration in time range) oxyCODONE-acetaminophen (Percocet) 5-325 MG per tablet 1 tablet (1 tablet Oral Given 09/16/23 1452) Patient presents with gluteal abscess to the [...] infection Alternatives discussed: Delayed treatment and referral [place] protocol: Patient identity confirmed: Verbally with patient [...] 03:48:50 PM PATIENT REFERRED TO: Izabela Turner [address] [place] [id number] Go in 3 days For wound re-check DISCHARGE MEDICATIONS: Discharge Medication List as of 09/16/2023 3:52 PM START taking these medications Details HYDROcodone-acetaminophen ([place]ton) 5-325 MG tablet Take 1 tablet by [...] Medicine Provider Ok Rai DO 09/16/23 1712 Patient ambulatory to room 15 presenting with [...] light in reach. documented in this encounter [facility] 09-16-2023 Hospital Discharg e instructions Ok Rai DO - 09/16/2023 3:49 PM EST Keep taking the antibiotics you are prescribed at the other ER. Doxycycline is appropriate coverage for this type of infection. Please keep the wound clean and dry. The following attachments cannot be sent through Care Everywhere.Abscess Drainage, Percutaneous Discharge Instructions (Persian)documented in this encounter [facility] 09-16-2023 Emergency department Triage note Patient [...] to change into. Call light in reach. [facility] 09-16-2023 Physician Emergency department Note Associated Order(s): [...] 9 ) Medications lidocaine-EPINEPHrine (Xylocaine W/EPI) 1 %-1:620906 injection 10 mL (has no administration in time range) oxyCODONE-acetaminophen (Percocet) 5-325 MG per tablet 1 tablet (1 tablet Oral Given 09/16/23 1452) Patient presents with gluteal abscess to the [...] infection Alternatives discussed: Delayed treatment and referral [place] protocol: Patient identity confirmed: Verbally with patient [...] 03:48:50 PM PATIENT REFERRED TO: Izabela Turner [address] [facility] [address] Go in 3 days For wound re-check DISCHARGE MEDICATIONS: Discharge Medication List as of 09/16/2023 3:52 PM START taking these medications Details HYDROcodone-acetaminophen (Dalton) 5-325 MG tablet Take 1 tablet by [...] Medicine Provider Ok Rai DO 09/16/23 1712 [facility] 02-13-2023 History of Presen t illness Narrative Images from the original note were not included. Pharmacy Consult: Diabetes Subjective: Jairo Lillie Adkinsefren Sanchez is a 43 y.o. male who presents [...] blood sugars using Freestyle [facility] w/ [facility] [place] Date Fasting After breakfast Before lunch After [...] 157 74 - 68 31 1 [facility] [place] 12/07/21 138 81 6.6 82 16 - [...] water, soda 10/12/21 (initial assessment) Seen by dietitian/manager technical sales: No Breakfast: cereal (rice krispies or honey [...] 6.1 (H) 07/21/2022 HGBA1C 6.3 (H) 03/30/2022 XFY93EV 0.00 06/22/2021 ANTPANCISLAB NEGATIVE 06/20/2021 IA2AB <5.4 [...] direct patient care, and documentation. Zack Dyer, DorianD, BCACP, TTS Specialty Practice Pharmacist [facility] Department of Family Medicine [facility] [...] for remote monitoring. documented in this encounter [facility] 02-13-2023 Instructions Sonido Dyer RPH - 02/13/2023 [...] blood pressure reevaluation documented in this encounter [facility] 10-27-2022 History of Presen t illness Narrative [...] Chief Complaint Patient presents with Physical Mr. Adkins is a 42 y.o. male who presents [...] a week. He is staying at the [place] [facility] [employer] and thus he is eating lunch there. He recently got kicked out of the detention so he is eating breakfast at [employer] and is doing fast food for dinner. He is working with a patient case coordinator to find housing. He is currently sleeping [...] that he has been living in a detention since August after he was evicted from his home. He reports being kicked out of the detention for not doing his chore duties and is not able to return for 30 days. He is currently living in his care. He is eating breakfast at a local [employer] and is eating lunch at the detention. For dinner he will typically eat fast food or a cold cut sandwich he buys at the store. He does have foods stamps. He does have a patient case coordinator through the detention. He is trying to find housing around the [facility]. Right CTS: The patient reports being diagnosed [...] patient is currently following with psychiatry at [facility]. His current regimen is Seroquel 200 mg, [...] 3. PSA: Not indicated. 4. Last colonoscopy: [facility]. No personal or family history of colorectal [...] insecurity. -Patient is planning on returning the detention his and daughter are staying at in the next couple of weeks. -He is currently working with a patient case coordinator through the detention to find housing, however will see if [...] is currently following with a psychiatrist in [place]. -He is no longer taking the Lamotrigine [...] reviewing studies, etc. documented in this encounter [facility] 10-27-2022 History of Presen t illness Narrative [...] situations as his family is in the detention and he has been asked to leave the detention for 30 days, but is still engaged with his family, able to see them, doing his best to get reinstated in the detention. He also has his social security appeal in process to help regain these benefits that he desperately needs. From TTP standpoint, he is doing well. His CBC is normal and we are awaiting his UFLHHL88 activity. His long-term complication is stable and [...] monitor him every 3 months and his RWUFVD86 activity for the need for recurrent rituximab [...] with him regarding the results of his XAJWAA56 activity when they are available. After visit summary was printed and given to patient. Discharge instructions and follow up appointments reviewed with patient. IHIS Fall prevention education handout included in AVS at time of discharge. All questions answered. Patient verbalized understanding. Patient and family encouraged to call with any additional questions documented in this encounter [facility] 10-27-2022 Instructions Lucy Green RN - 10/27/2022 8:45 AM EST Please feel free to contact the triage line at [phone] with any concerns. Hematology Primary Care Team Dr. Abdirahman Robles, FERMIN Li, KARYN Neves, Research Coordinator Please plan ahead and [...] applied to wood stairs to prevent sliding. [place] a bright colored line on the edge [...] Auto 2.24 0.83 - 3.57 K/uL Abs [place] Auto 0.77 0.24 - 0.93 K/uL Abs Eos Auto 0.52 (H) 0.00 - 0.48 K/uL Abs Baso Auto 0.08 0.00 - 0.09 K/uL documented in this encounter [facility] 09-16-2022 History of Presen t illness Narrative Chief Complaint: Chief Complaint Patient presents with Left Foot - Follow-up Pt presents to FU b/l foot px, pt states the L foot is really bothering him. Pt would like to discuss DM shoes. Right Foot - Follow-up HPI: Jairo Adkins is a 42 y.o. male who presents [...] daily., Disp: , Rfl: Continuous Blood Gluc Inspector Exhaust Emissions (FreeStyle Roxi 14 Day [place]) Device, Use to check blood sugar using the Freestyle Roxi sensors, Disp: 1 Each, Rfl: 0 Continuous Blood Gluc Sensor (FreeStyle Roxi 14 Day Sensor) Misc, Use to check blood sugars using the Freestyle Roxi [place]. Change sensor every 14 days., Disp: 2 Each, Rfl: 11 Dulaglutide (Trulicity) 1.5 MG/0.5ML Solution Pen-injector injection, Inject 0.5 mL under the skin once a week., Disp: 2 mL, Rfl: 11 Glucagon, rDNA, (Glucagon Emergency) 1 MG Kit, Use as needed for severe low blood sugar (Hypoglycemia), Disp: 3 kit, Rfl: 1 Insulin Pen Needle (PEN NEEDLES 31GX5/16 ) 31G X 8 MM [facility], Use new needle with each insulin injection., [...] and tingling Physical Exam General: Jairo Adkins JrLuis Armando is seated comfortably in the examination room. [...] sensation is intact when tested with 5.07 [place] Nina monofilament bilaterally. Musculoskeletal: 5/5 muscle strength [...] satisfaction. I did explain to Jairo Adkins JrLuis Armando the importance of tight blood sugar control [...] to this visit. documented in this encounter [facility] 09-16-2022 History of Presen t illness Narrative [...] daily., Disp: , Rfl: Continuous Blood Gluc Inspector Exhaust Emissions (FreeStyle Roxi 14 Day [place]) Device, Use to check blood sugar using the Freestyle Roxi sensors, Disp: 1 Each, Rfl: 0 Continuous Blood Gluc Sensor (FreeStyle Roxi 14 Day Sensor) [facility], Use to check blood sugars using the Freestyle Roxi [place]. Change sensor every 14 days., Disp: 2 [...] sensation is intact when tested with 5.07 [place] Nina monofilament bilaterally. Musculoskeletal: 5/5 muscle strength [...] to this visit. documented in this encounter [facility] 09-16-2022 Miscellaneous Notes Addended by: SHIRA COTA on: 09/22/2022 08:47 AM Modules accepted: Orders Addended by: SHIRA COTA on: 09/23/2022 07:55 AM Modules accepted: Orders documented in this encounter [facility] 09-16-2022 Note Addended by: SHIRA COTA on: 09/22/2022 08:47 AM Modules accepted: Orders [facility] 09-16-2022 Note Addended by: SHIRA COTA on: 09/23/2022 07:55 AM Modules accepted: Orders [facility] 07-21-2022 History of Presen t illness Narrative [...] after he presented to local ED in [place] with diffuse ecchymoses and low platelet count. [...] of Rituxan and PLEX. His TTP and [id number] activity had been stable, then in December 2020 his BFBKNT81 activity decreased to less than 30% and [...] PT and obtain TENS unit through the [facility]. He has also been working [...] mouth 3 times daily. Continuous Blood Gluc Inspector Exhaust Emissions (FreeStyle Roxi 14 Day [place]) Device Use to check blood sugar using the Freestyle Roxi sensors Continuous Blood Gluc Sensor (FreeStyle Roxi 14 Day Sensor) Misc Use to check blood sugars using the Freestyle Roxi [place]. Change sensor every 14 days. Dulaglutide (Trulicity) [...] and is negative except as noted in RESIGHINI. PHYSICAL EXAM BP 126/86 (BP Position: Sitting) [...] Auto 2.39 0.83 - 3.57 K/uL Abs [place] Auto 0.63 0.24 - 0.93 K/uL Abs [...] to the of his daughter. Plan -awaiting QDCPUX10 activity -RTC 3 months It was a pleasure meeting Jairo Adkins Jr. today. Plan was discussed and mutually agreed upon with patient. All questions answered. Encouraged the patient to reach out to clinic if anything arises in interim. This case was discussed with Dr. Abdirahman Whitfield MD. Chana Bob APRN-FAN RUNNER #[id number] I interviewed and examined Mr Adkins and [...] questions. Jose Whitfield documented in this encounter [facility] 07-21-2022 Instructions Lucy Green RN - 07/21/2022 8:30 AM EDT Please feel free to contact the triage line at [phone] with any concerns. Hematology Primary Care Team Dr. Abdirahman Robles, JARRETT Green, FERMIN Lovett, [facility] Candice Gallardo, Research Coordinator Please plan ahead and request all prescription refills at your office visit with your doctor. Allow one week for prescription refills to be processed over the telephone. Please allow 2 weeks for all paperwork to be filled [facility] information you will have access [...] applied to wood stairs to prevent sliding. [place] a bright colored line on the edge [...] Auto 2.39 0.83 - 3.57 K/uL Abs [place] Auto 0.63 0.24 - 0.93 K/uL Abs Eos Auto 0.53 (H) 0.00 - 0.48 K/uL Abs Baso Auto 0.10 (H) 0.00 - 0.09 K/uL documented in this encounter [facility] 05-13-2022 History of Presen t illness Narrative This is a follow-up visit: Subjective: HPI: Jairo Adkins Jr. is a 42 y.o. male presenting with [...] daily., Disp: , Rfl: Continuous Blood Gluc Inspector Exhaust Emissions ([place] Stem Cell Roxi 14 Day [place]) Device, Use to check blood sugar using the Freestyle Roxi sensors, Disp: 1 Each, Rfl: 0 Continuous Blood Gluc Sensor (FreeStyle Roxi 14 Day Sensor) [facility], Use to check blood sugars using the Freestyle Roxi [place]. Change sensor every 14 days., Disp: 2 [...] NEEDLES 31GX5/16 ) 31G X 8 MM [facility], Use new needle with each insulin injection., [...] voiced understanding. He will get tens from [employer]. Fran Jarrett MD Char Filter Tank Tender - Clinical Department of Anesthesiology and Pain Medicine documented in this encounter [facility] 05-12-2022 History of Presen t illness Narrative Chief Complaint: Chief Complaint Patient presents with Left Foot - Follow-up Pt presents for fu on trent heel spurs, feeling ok, about the same as before, no new concerns, heel pads are not helpful and seemed to stoip being helpful about 20 min after getting them, Right Foot - Follow-up HPI: Jairo Adkins is a 42 y.o. male who presents [...] Past Medical History: Diagnosis Date Bleeding disorder 2004 Blood transfusion Diabetes mellitus 06/2021 Hit by [...] daily., Disp: , Rfl: Continuous Blood Gluc Inspector Exhaust Emissions (FreeStyle Roxi 14 Day [place]) Device, Use to check blood sugar using the Freestyle Roxi sensors, Disp: 1 Each, Rfl: 0 Continuous Blood Gluc Sensor (FreeStyle Roxi 14 Day Sensor) [facility], Use to check blood sugars using the Freestyle Roxi [place]. Change sensor every 14 days., Disp: 2 [...] NEEDLES 31GX5/16 ) 31G X 8 MM [facility], Use new needle with each insulin injection., [...] sensation is intact when tested with 5.07 [place] Nina monofilament bilaterally. Musculoskeletal: 5/5 muscle strength [...] problems or concerns documented in this encounter [facility] 04-14-2022 History of Presen t illness Narrative [...] and we will continue to monitor. His PURUDW46 activity to help predict the risk of relapse to determine when he may require additional prophylactic rituximab with his primary care physician here at [facility] managing his diabetes and other medical issues [...] any additional questions documented in this encounter [facility] 04-14-2022 Instructions Lucy Green RN - 04/14/2022 8:20 AM EDT Please feel free to contact the triage line at [phone] with any concerns. Hematology Primary Care Team Dr. Abdirahman Ospina, Hematology Fellow FERMIN Avelar [facility] Candice Gallardo, Research Coordinator Please plan ahead [...] applied to wood stairs to prevent sliding. [place] a bright colored line on the edge [...] Auto 2.26 0.83 - 3.57 K/uL Abs [place] Auto 0.77 0.24 - 0.93 K/uL Abs Eos Auto 0.64 (H) 0.00 - 0.48 K/uL Abs Baso Auto 0.09 0.00 - 0.09 K/uL documented in this encounter [facility] 03-30-2022 History of Presen t illness Narrative [...] different statin. The 10-year ASCVD risk score ([place] ARY Jr., et al., 2013) is: 16.9% Values [...] He has not followed up with the [facility]. The patient also reports ongoing left ankle [...] -Advised patient to follow up with the [facility] to discuss ongoing pain. 3. Insertional Achilles [...] lav tubes drawn documented in this encounter [facility] 02-08-2022 History of Presen t illness Narrative [...] Foot - Pain, MRI Results HPI: Jairo Adkins Jr. is a 42 [...] Past Medical History: Diagnosis Date Bleeding disorder 2004 Blood transfusion Diabetes mellitus 06/2021 Hit by [...] daily., Disp: , Rfl: Continuous Blood Gluc Inspector Exhaust Emissions (FreeStyle Roxi 14 Day [place]) Device, Use to check blood sugar using the Freestyle Roxi sensors, Disp: 1 Each, Rfl: 0 Continuous Blood Gluc Sensor (FreeStyle Roxi 14 Day Sensor) [facility], Use to check blood sugars using the Freestyle Roxi [place]. Change sensor every 14 days., Disp: 2 [...] NEEDLES 31GX5/16 ) 31G X 8 MM [facility], Use new needle with each insulin injection., [...] sensation is intact when tested with 5.07 [place] Nina monofilament bilaterally. Musculoskeletal: 5/5 muscle strength [...] problems or concerns documented in this encounter [facility] 01-31-2022 History of Presen t illness Narrative Chief Complaint Patient presents with Back Pain Pt states back pain has stayed the same since last visit. Pt states the brand marketing specialist did prescribe him a tens unit but he cannot find a place that will fill the prescription. History of Present Illness: Mr. Adkins is a 41 y.o. male with a PMH significant for TTP, T2DM, essential HTN, obesity, chronic knee pain, and DDD who presents today for evaluation of low back pain. Low back pain: The patient has been following with the [facility] for low back pain. His last appointment [...] lumbar spine. At his last visit with [facility] patient was advised to continue PT and [...] sx above. documented in this encounter [facility] 01-27-2022 History of Presen t illness Narrative [facility] Referred by: ANDRÉS Carrion [address] [place] [address] PCP: ANDRÉS Carrion (General) Reason for consult: Low back pain with left-sided sciatica. History of Present Illness: Jairo Adkins Jr. is a 41 y.o. [...] busPIRone 10 MG tablet, Continuous Blood Gluc Inspector Exhaust Emissions (FreeStyle Roxi 14 Day [place]) Device, Continuous Blood Gluc Sensor (FreeStyle Roxi [...] documentation of this patient. Fran Jarrett MD Char Filter Tank Tender Anesthesiology / Pain Management [facility] documented in this encounter [facility] Evaluation + Plan note No data available for this section [facility] Diagnosis Chronic bilateral low back pain with left-sided sciatica Myalgia Mylagia and myositis, unspecified Strain of lumbar region, initial encounter Class 3 severe obesity due to excess calories with body mass index (BMI) of 40.0 to 44.9 in adult, unspecified whether serious comorbidity present [facility] Diagnosis Chronic bilateral low back pain with left-sided sciatica- Primary [facility] Diagnosis 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 Bilateral foot pain Pain in limb Postcalcaneal bursitis of right foot [facility] Diagnosis Type 2 diabetes mellitus without complication, with long-term current use of insulin- Primary 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 Postcalcaneal bursitis of right foot [facility] Diagnosis 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 [facility] Diagnosis Insertional Achilles tendinopathy- Primary Retrocalcaneal exostosis Exostosis of unspecified site Postcalcaneal bursitis of right foot Bilateral foot pain Pain in limb [facility] Diagnosis Myalgia- Primary Mylagia and myositis, unspecified Class 3 severe obesity due to excess calories with body mass index (BMI) of 40.0 to 44.9 in adult, unspecified whether serious comorbidity present Chronic bilateral low back pain without sciatica Cervicalgia Muscle spasm of back Other symptoms referable to back [facility] Diagnosis 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 Type 2 diabetes mellitus without complication, with long-term current use of insulin Encounter for follow-up [facility] Diagnosis Insertional Achilles tendinopathy- Primary Other chronic pain Chronic heel pain, right Chronic heel pain, left [facility] Diagnosis Insertional Achilles tendinopathy- Primary Other chronic pain Chronic heel pain, right Chronic heel pain, left Encounter for diabetic foot exam Hammertoe, bilateral [facility] Diagnosis Insertional Achilles tendinopathy [facility] Diagnosis 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 [facility] Diagnosis Well adult exam- Primary Routine [...] vaccination Need for prophylactic vaccination with combined wliozdntbf-mkcynfr-hobphkzrl (DTP) vaccine [facility] Diagnosis Type 2 diabetes mellitus without complication, with long-term current use of insulin- Primary [facility] Diagnosis Gluteal abscess- Primary Cellulitis and abscess of buttock documented in this encounter [facility] for referral (narrative)* Consultation (Routine) - New Request Specialty Diagnoses / Procedures Referred By Camila ward Referred To Contact Multispecialty Diagnoses Insertional Achilles tendinopathy Shira Cota, DPM [address] [facility] [address] [place] [address] Referral ID Status Reason Start Date Expiration Date V isits Requested Visits Authorized [id number] New Request 09/16/2022 10/11/2023 1 1 * MRI/CAT Scan (Routine) - New Request Specialty Diagnoses / Procedures Referred By Camila ward Referred To Contact Diagnoses Insertional Achilles tendinopathy Procedures MRI ANKLE LEFT WITHOUT CONTRAST PA MRI LOWER EXTREM JT, W/O CONTRAST Shira Cota DPM [address] [facility] [address] [place] [address] Referral ID Status Reason Start Date Expiration Date V isits Requested Visits Authorized [id number] New Request 09/16/2022 10/11/2023 1 1 [facility] Consultation (Routine) - New Request Specialty Diagnoses / Procedures Referred By Camila ward Referred To Contact Hand Diagnoses Carpal tunnel syndrome of right wrist Lonnie Ring APRN-CNP [address] [facility] [address] [place] [address] Referral ID Status Reason Start Date Expiration Date V isits Requested Visits Authorized [id number] New Request 10/27/2022 11/21/2023 1 1 * Adjunctive Therapy (Routine) - Closed Specialty Diagnoses / Procedures Referred By Camila t Referred To Contact Social Work Diagnoses Housing instability Food insecurity Lonnie Ring APRN-CNP [address] [facility] [address] [place] [address] Referral ID Status Reason Start Date Expiration Date Visits Re quested Visits Authorized [id number] Closed 10/27/202211/21/2023 1 1 [facility] Advance Directives No Advanced Directives Records FoundLatest [...] Referral Specialty Diagnoses / Procedures Referred By Camila ward Referred To Contact Diagnoses Insertional Achilles tendinopathy Procedures XR FOOT RIGHT 3 VIEWS Serge Murdock, DPM [address] [place] [address] Referral ID Status Reason Start Date Expiration Date V isits Requested Visits Authorized [id number] New Request 02/08/2022 03/05/2023 1 1 Specialty Diagnoses / Procedures Referred By Camila ward Referred To Contact Diagnoses Insertional Achilles tendinopathy Procedures MRI ANKLE LEFT WITHOUT CONTRAST PA MRI LOWER EXTREM JT, W/O CONTRAST Shira Cota, CHRISTIANM [address] [address] Referral ID Status Reason Start Date Expiration Date Visits Re quested Visits Authorized [id number] Closed 09/16/2022 10/11/2023 1 1 Summary Purpose Family History No Family History Records FoundNo Family History Records FoundNo Family History Records Found No data available for this section No Family History Records Found Additional Source Comments Reason for Visit (unrecogniz ed section and content) Specialty Diagnoses / Procedures Referred By Camila ward Referred To Contact Spine Diagnoses Chronic bilateral low back pain with left-sided sciatica Lonnie Ring, DATA LEAD-FAN RUNNER [address] [place] [address] Referral ID Status Reason Start Date Expiration Date V isits Requested Visits Authorized [id number] New Request 01/06/2022 01/31/2023 1 1 Reason Comments Back Pain Pt states back pain has stayed the same since last visit. Pt states the brand marketing specialist did prescribe him a tens unit [...] To Contact Podiatry Diagnoses Left Achilles tendinitis Stephanie Ringhany, DATA LEAD-FAN RUNNER [address] [facility] [address] [place] [address] Referral ID Status Reason Start Date Expiration Date V isits Requested Visits Authorized [id number] New Request 12/08/2021 01/02/2023 1 1 Specialty Diagnoses / Procedures Referred By Camila ward Referred To Contact Diagnoses Insertional Achilles tendinopathy Procedures XR FOOT RIGHT 3 VIEWS Serge Murdock L, DPM [address] [place] [address] Referral ID Status Reason Start Date Expiration Date V isits Requested Visits Authorized [id number] New Request 02/08/2022 03/05/2023 1 1 Reason [...] tendinopathy Procedures MRI ANKLE LEFT WITHOUT CONTRAST PA MRI LOWER EXTREM JT, W/O CONTRAST Shira Cota, DPM [address] [address] Referral ID Status Reason Start Date Expiration Date Visits Re quested Visits Authorized [id number] Closed 09/16/2022 10/11/2023 1 1 Reason Comments Physical Specialty Diagnoses / Procedures Referred By Camila ward Referred To Contact Diagnoses Research exam Procedures MRI CARDIAC STRESS WITH CONTRAST PA CARDIAC MRI W/W/O CONTRAST W STRESS Yoseph Qureshi MD [address] [place] [address] Referral ID Status Reason Start Date Expiration Date V isits Requested Visits Authorized [id number] Auth Not Needed 01/18/2023 02/12/2024 1 1 Reason Comments Diabetes Reason Comments Abscess Left butt cheek boil that started on Monday, and has gotten progressively worse per patient; he attempted to sarmad it himself on Monday and used warm compresses on Monday as well; denies fevers or chills Care Teams (unrecognized sec tion and content) Sports Nutritionist Relationship Specialty Start Date End Date Lonnie Ring [facility] [address] [place] [id number] PCP - General Certified Nurse Practitioner 09/22/21 Sports Nutritionist Relationship Specialty Start Date End Date Lonnie Ring [facility] [address] [place] [id number] PCP - General Certified Nurse Practitioner 09/22/21 Sports Nutritionist Relationship Specialty Start Date End Date Lonnie Ring [facility] [address] [place] [id number] PCP - General Certified Nurse Practitioner 09/22/21 Sports Nutritionist Relationship Specialty Start Date End Date Lonnie Ring [facility] [address] [place] [address] PCP - General Certified Nurse Practitioner 09/22/21 Sports Nutritionist Relationship Specialty Start Date End Date Lonnie Ring [facility] [address] [place] [address] PCP - General Certified Nurse Practitioner 09/22/21 Sports Nutritionist Relationship Specialty Start Date End Date Lonnie Ring [facility] [address] [place] [id number] PCP - General Certified Nurse Practitioner 09/22/21 Sports Nutritionist Relationship Specialty Start Date End Date Lonnie Ring DATA LEAD-FAN RUNNER [address] [place] [address] PCP - General Certified Nurse Practitioner 09/22/21 Sports Nutritionist Relationship Specialty Start Date End Date Stephanie Ringhany DATA LEAD-FAN RUNNER [address] [place] [address] PCP - General Certified Nurse Practitioner 09/22/21 Sports Nutritionist Relationship Specialty Start Date End Date Lonnie RingANA LUISANFAN RUNNER [address] [place] [address] PCP - General Certified Nurse Practitioner 09/22/21 Sports Nutritionist Relationship Specialty Start Date End Date Lonnie RingANA LUISANFAN RUNNER [address] [place] [address] PCP - General Certified Nurse Practitioner 09/22/21 Sports Nutritionist Relationship Specialty Start Date End Date Lonnie RingANA LUISANFAN RUNNER [address] [place] [address] PCP - General Certified Nurse Practitioner 09/22/21 Sports Nutritionist Relationship Specialty Start Date End Date María Elena LonnieANA LUISAN-FAN RUNNER [address] [place] [address] PCP - General Certified Nurse Practitioner 09/22/21 Sports Nutritionist Relationship Specialty Start Date End Date Lonnie RingANA LUISANFAN RUNNER [address] [place] [address] PCP - General Certified Nurse Practitioner 09/22/21 Sports Nutritionist Relationship Specialty Start Date End Date Lonnie Ring DATA LEADFAN RUNNER [address] [place] [address] PCP - General Certified Nurse Practitioner 09/22/21 Sports Nutritionist Relationship Specialty Start Date End Date Izabela Turner RUBI: [id number] [address] [place] [id number] PCP - General 09/16/23 (unrecognized sect ion and content) No Status Records FoundNo Status Records FoundNo Status Records FoundNo Status Records Found INFORMATION SOURCE (unrecogn ized section and content) DATE CREATED AUTHOR AUTHOR'S ORGANIZ ATION 09/18/2023 [facility] DATE CREATED AUTHOR AUTHOR'S ORGANIZ ATION 09/23/2023 [facility] DATE CREATED AUTHOR AUTHOR'S ORGANIZ ATION 11/09/2023 [facility] ([place]) Scheduled Active and Recently Administ ered Medications [...] BE BASED ON THE PRIMARY CLINICAL RECORDS. [employer] provides no warranty or guarantee of the accuracy or completeness of information in this document.
--- NOTE | 2023-11-10 04:40 | RAD_ITS ---
EXAM: XR RIGHT SHOULDER COMPLETE, 2 OR MORE VIEWS CLINICAL INDICATION: pain TECHNIQUE: Two or more views of the right shoulder. COMPARISON: No relevant prior studies available. FINDINGS: BONES/JOINTS: Unremarkable. No acute fracture. No subluxation. Normal alignment. Preservation of the joint space. No sclerotic or destructive changes observed. SOFT TISSUES: Unremarkable. No soft tissue swelling or gas. No radiopaque foreign body. RAD/Shoulder min 2 Views IMPRESSION: Negative right shoulder x-rays. Electronically Signed: Demetrius Guerra MD at 4:52 EST ,
== END 2023-11-10 05:39 | disposition home or self-care (01) ==
LOC: ED 04:31
PROVIDERS: Emergency Provider Emergency Medicine; Visit Provider Emergency Medicine
DX: M25.511 Pain in right shoulder (principal); E11.9 Type 2 diabetes mellitus without complications; F17.210 Nicotine dependence, cigarettes, uncomplicated
CPT/HCPCS: 73030; 99282

== ENCOUNTER 2023-11-30 03:35 | Emergency (ER) | payer MEDICAID, SELFPAY ==
[2023-11-30 03:35] VITALS: BP 140/90; PULSE 102; RESP 16; TEMP 36.8; O2SAT 98; BMI 42.6
--- OUTSIDE RECORDS SUMMARY | 2023-11-30 04:06 | XMS RPT_ITS | CCD ---
Author Name Unknown Address [id number] [place] [address] Organization [facility] Care Team Providers Care Learning Engineer Name Role Phone María Elena POLK-JARRETT, Lonnie Primary Care Provider BOGANTZ, LONNIE Primary Care Unavailable BOGANTZ, LONNIE Referring Unavailable AURORAANDABDIRAHMAN Attending Unavailable SONIDO DYER Attending Unavailable BOGANTZ, LONNIE Primary Care Unavailable BOGANTZ, LONNIE Referring Unavailable SHIRA COTA Referring Unavailable SHIRA COTA Attending Unavailable BOGANTZ, [...] Primary Care Unavailable BOGANTZ, LONNIE Referring Unavailable CATALAND, SPEANAID R Attending Unavailable CATALAND SPERO R Attending Unavailable BOGANTZ, LONNIE Primary Care Unavailable BOGANTZ, LONNIE Referring Unavailable SELF, SELF Referring Unavailable BOGANTZ, LONNIE Primary Care Unavailable SELF, SELF Referring Unavailable SHIRA COTA Attending Unavailable BOGANTZ, LONNIE Primary Care Unavailable BOGANTZ, LONNIE Primary Care Unavailable YOSEPH QURESHI Attending Unavailable QURESHI YUCHI Referring Unavailable BOGANTZ, LONNIE Primary Care Unavailable SONIDO DYER Attending Unavailable BOGANTZ, LONNIE Primary Care Unavailable BOGANTZ, LONNIE Referring Unavailable FARWIG SONIDO Attending Unavailable BOGANTZ, LONNIE Primary Care [...] Referring Unavailable BOGANTZ, LONNIE Primary Care Unavailable JARRETTFRAN MI Attending Unavailable BOGANTZ, LONNIE Primary Care Unavailable BOGANTZ, LONNIE Referring Unavailable QURESHI, YUCHI Attending Unavailable BOGANTZ, LONNIE Primary Care Unavailable QURESHI, YUCHI Referring Unavailable Izabela Turner Primary Care Provider IZABELA TURNER Primary Care Unavailable OK RAI Attending Unavailable GENERIC PROVIDER, NO ASSIGNED PCP Primary Care Unavailable PHYSICIAN, NONE Primary Care Physician Unavailab CHINYERE Damico DO Attending Unavailable PHYSICIAN, NONE Primary Care Unavailable Polo Castillo Unavailable Polo Castillo Primary Care Provider Allergies Allergy Classification Reported Allergen(s) Allergy Type Date of Onset Reaction(s) Facility (18 sources) Aluminum aspirin Drug Allergy 9 [facility] (18 sources) Dicyclomine Drug Allergy 0 [facility] (20 sources) fentaNYL; Translations: [fentanyl] Drug Allergy 3 Nausea Only, Hives [facility] (15 sources) Latex Propensity to adverse reactions to drug 1 [facility] (20 sources) Methadone; Translations: [methadone] Drug Allergy 2 Nausea and Vomiting, Hives, Other [facility] Work Phone: (20 sources) Morphine; Translations: [morphine] Drug Allergy 0 [facility] (19 sources) predniSONE; Translations: [prednisone] Drug Allergy 0 Nausea and Vomiting [facility] (18 sources) Propoxyphene Drug Allergy 1 [facility] (20 sources) traMADol; Translations: [tramadol] Drug Allergy 5 Dyspnea, Hives, Shortness of breath, Dyspnea (finding) [facility] (18 sources) Aspirin Buffered Propensity to adverse reactions to drug 1 Swelling [facility] (13 sources) *Adhesive Tape Propensity to adverse reactions 9 Rash [facility] (4 sources) Adhesive Tape Drug Allergy 2 Rash [facility] (2 sources) Ketorolac Allergy to substance 2 [facility] (3 sources) Prednisone Allergy to substance 0 Nausea And Vomiting, Rash [facility] (2 sources) Fentanyl And Related Drug Intolerance 6 Hives, Nausea Only [facility] (1 source) ALLERGIES NOT ON FILE; Translations: [ALLERGIES NOT ON FILE] Propensity to adverse reactions (disorder) [facility] 2 Repository (2 sources) Aspirin; Translations: [aspirin] Drug Allergy thins blood [facility] (2 sources) cyclobenzaprine; Translations: [cyclobenzaprine ] Drug Allergy [facility] (2 sources) Dicyclomine; Translations: [dicyclomine] Drug Allergy rash [facility] (2 sources) GRAPEFRUIT EXTRACT Drug Allergy [facility] (2 sources) Ketorolac; Translations: [ketorolac] Drug Allergy Dyspnea (finding) [facility] (2 sources) Naproxen; Translations: [naproxen] Drug Allergy [facility] (1 source) gadobutrol Drug Allergy 3 Itching, Nausea and Vomiting [facility] Medications Current Medications Medication Drug Class(es) Dates Sig (Normalized) Sig (Original) acetaminophen 250 mg / aspirin 250 mg / caffeine 65 mg oral tablet (2 sources) Platelet Aggregation Inhibitor, Nonsteroidal Anti-inflammatory Drug, Central [...] hours as needed for pain HYDROcodone-aceta minophen (Wolsey) 5-325 MG tablet Indications: Gluteal abscess Take 1 tablet by mouth every 6 hours as needed for severe pain (7-10) for up to 3 days. 10 tablet 0 09/16/2023 09/19/2023 Active atorvastatin 10 mg oral tablet (13 sources) HMG-CoA Reductase Inhibitor Start: 09-29-2022 take [...] disorder, unspecified] Chronic Diabetes mellitus with complications (18 sources) Hyperglycemia due to diabetes mellitus; Translations: [Type 2 diabetes mellitus with hyperglycemia] Onset: 06-20-2021 06-20-2021 Chronic Diabetes mellitus without complication (20 sources) Newly diagnosed diabetes; Translations: [Type 2 diabetes mellitus without complications] Onset: 06-22-2021 06-22-2021 Chronic Esophageal disorders (2 sources) Gastroesophageal reflux disease 11-15-2014 Chronic Essential hypertension (2 sources) Hypertensive disorder 11-15-2014 Chronic Other aftercare (1 source) Patient encounter status; Translations: [Encounter for follow-up examination after completed treatment for conditions other than malignant neoplasm] Episodic Other aftercare (2 sources) half-way (current) use of insulin; Translations: [half-way (current) use of insulin] Onset: 02-13-2023 Episodic [...] left foot] Episodic Other nervous system disorders (20 sources) Chronic pain; Translations: [Other chronic pain] Onset: 11-07-2014 09-22-2021 Chronic Other nervous system disorders (6 sources) Carpal tunnel syndrome; Translations: [Carpal tunnel syndrome, unspecified upper limb] Onset: 09-29-2022 09-29-2022 Chronic Other nervous system disorders (3 sources) Carpal tunnel syndrome of right wrist; Translations: [Carpal tunnel syndrome, right upper limb] Onset: 11-03-2023 Chronic Other nervous system disorders (2 sources) Carpal tunnel syndrome, right upper limb; Translations: [Carpal tunnel syndrome, right upper limb] Onset: 09-29-2022 Chronic Other nervous system disorders (2 sources) Other chronic pain; Translations: [Other chronic pain] Onset: 09-16-2022 Chronic Other nervous system disorders (2 sources) Chronic back pain greater than three months duration 03-30-2015 Chronic Other non-traumatic joint disorders (1 source) Pain of right wrist; Translations: [Pain in right wrist] Onset: 11-03-2023 Episodic Other nutritional; endocrine; and metabolic disorders (3 sources) Severe obesity; Translations: [Morbid (severe) obesity due to excess calories] Chronic Other nutritional; endocrine; and metabolic disorders (8 sources) Body mass index 40+ - severely obese; Translations: [Morbid (severe) obesity due to excess calories] Onset: 09-16-2022 09-16-2022 Chronic Skin and subcutaneous tissue infections (6 sources) Abscess of buttock; Translations: [Cutaneous abscess of buttock] Onset: 09-15-2023 09-16-2023 Episodic Spondylosis; intervertebral disc disorders; other back problems (18 sources) Degeneration of lumbar intervertebral disc; Translations: [...] 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] Onset: 06-20-2021 Unclassified (2 sources) ttp/thrpmbocytopenia Onset: 02-19-2007 02-19-2007 Past or Other [...] for immunization] Onset: 10-27-2022 Episodic Mood disorders (18 sources) Mood disorders Onset: 09-22-2021 Resolved: 06-29-2023 09-22-2021 Other aftercare (2 sources) Encounter for follow-up examination after completed treatment for conditions other than malignant neoplasm; Translations: [Encounter for follow-up examination after completed treatment for conditions other than malignant neoplasm] Onset: 07-21-2022 Episodic Other circulatory disease (18 sources) Thrombotic microangiopathy; 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 09-14-2009 Chronic Other connective tissue disease (13 sources) Insertional Achilles tendinopathy; Translations: [Achilles tendinitis, unspecified leg] Onset: 09-29-2022 Episodic Other connective tissue disease (9 sources) Retrocalcaneal bursitis of right foot; Translations: [...] Onset: 09-16-2022 Episodic Other non-traumatic joint disorders (18 sources) Pain in unspecified knee; Translations: [Pain [...] Vital Sign Value Performing Clinician Summer winter 11-27-2023 04:30-0500 Body temperature 97.7 [degF] TOD ARROYO MD [facility] 11-27-2023 04:30-0500 Diastolic Blood Pressure Non-Invasive 80 mm[Hg] TOD ARROYO MD [facility] 11-27-2023 04:30-0500 Heart rate 99 /min TOD ARROYO MD [facility] 11-27-2023 04:30-0500 Respiratory rate 16 /min TOD ARROYO MD [facility] 11-27-2023 04:30-0500 Systolic Blood Pressure Non-Invasive 135 mm[Hg] TOD ARROYO MD [facility] 11-03-2023 09:44-0500 Body height 175.3 cm NIDAL CHOUJAA DO [facility] 11-03-2023 09:44-0500 Body temperature 97.52 [degF] NIDAL CHOUJAA DO [facility] 11-03-2023 09:44-0500 Body weight 127.3 kg NIDAL CHOUJAA DO [facility] 11-03-2023 09:44-0500 Diastolic Blood Pressure Non-Invasive 91 mm[Hg] NIDAL CHOUJAA DO [facility] 11-03-2023 09:44-0500 Heart rate 83 /min NIDAL CHOUJAA DO [facility] 11-03-2023 09:44-0500 Respiratory rate 18 /min NIDAL CHOUJAA DO [facility] 11-03-2023 09:44-0500 Systolic Blood Pressure Non-Invasive 143 mm[Hg] NIDAL CHOUJAA DO [facility] 09-16-2023 14:18-0500 Body height 175.3 cm Ok Rai DO Work Phone: [facility] [employer] 09-16-2023 14:18-0500 Body mass index (BMI) [Ratio] 42.83 kg/m2 Ok Barbozala DO Work Phone: [facility] [employer] 09-16-2023 14:18-0500 Body temperature 98.1 [degF] Ok Barbozala DO Work Phone: [facility] [employer] 09-16-2023 14:18-0500 Body weight 131.54 kg Ok Rai DO Work Phone: [facility] [employer] 09-16-2023 14:18-0500 Diastolic blood pressure 108 mm[Hg] Ok Barbozala DO Work Phone: [facility] 09-16-2023 14:18-0500 Heart rate 99 /min Ok Barbozala DO Work Phone: [facility] 09-16-2023 14:18-0500 Respiratory rate 17 /min Ok Rai DO Work Phone: [facility] 09-16-2023 14:18-0500 SaO2% (BldA) [Mass fraction] 97 % Ok Barbozala DO Work Phone: [facility] [employer] 09-16-2023 14:18-0500 Systolic blood pressure 163 mm[Hg] Ok Barbozala DO Work Phone: [facility] 02-13-2023 09:57-0400 Body mass index (BMI) [Ratio] 40.87 kg/m2 Sonido [facility] Work Phone: [facility] 02-13-2023 09:57-0400 Body weight 134.63 kg Sonido [facility] Work Phone: [facility] 02-13-2023 09:57-0400 Diastolic blood pressure 88 mm[Hg] Sonido [facility]ccartyFormerly [facility] Work Phone: [facility] 02-13-2023 09:57-0400 Heart rate 88 /min Sonido Dyer [facility] Work Phone: [facility] 02-13-2023 09:57-0400 Systolic blood pressure 134 mm[Hg] Sonido MccartyFormerly [facility] Work Phone: [facility] 10-27-2022 13:07-0500 Body height 181.5 cm Lonniedamon Baltazarz [employer] Work Phone: [facility] 10-27-2022 13:07-0500 Body mass index (BMI) [Ratio] 39.66 kg/m2 Lonnie Lindaantz [employer] Work Phone: [facility] 10-27-2022 13:07-0500 Body temperature 98.4 [degF] Lonnie Lindaantz [employer] Work Phone: [facility] 10-27-2022 13:07-0500 Body weight 130.64 kg Lonnie Lindaantz [employer] Work Phone: [facility] 10-27-2022 13:07-0500 Diastolic blood pressure 74 mm[Hg] Lonnie Lindaantz [employer] Work Phone: [facility] 10-27-2022 13:07-0500 Heart rate 106 /min Lonnie Lindaantz [employer] Work Phone: [facility] 10-27-2022 13:07-0500 Respiratory rate 18 /min Lonnie Lindaantz [employer] Work Phone: [facility] 10-27-2022 13:07-0500 SaO2% (BldA) [Mass fraction] 95 % Lonnie Lindaantz [employer] Work Phone: [facility] 10-27-2022 13:07-0500 Systolic blood pressure 122 mm[Hg] Lonnie Ring [employer] Work Phone: [facility] 10-27-2022 09:01-0500 Body height 175.3 cm Abdirahman Whitfield MD Work Phone: [facility] 10-27-2022 09:01-0500 Body mass index (BMI) [Ratio] 42.65 kg/m2 Abdirahman Whitfield MD Work Phone: [facility] 10-27-2022 09:01-0500 Body temperature 98.49 [degF] Abdirahman Whitfield MD Work Phone: [facility] 10-27-2022 09:01-0500 Body weight 131 kg Abdirahman Whitfield MD Work Phone: [facility] 10-27-2022 09:01-0500 Diastolic blood pressure 79 mm[Hg] Abdirahman Whitfield MD Work Phone: [facility] 10-27-2022 09:01-0500 Heart rate 115 /min Abdirahman Whitfield MD Work Phone: [facility] 10-27-2022 09:01-0500 Respiratory rate 16 /min Abdirahman Whitfield MD Work Phone: [facility] 10-27-2022 09:01-0500 SaO2% (BldA) [Mass fraction] 96 % Abdirahman Whitfield MD Work Phone: [facility] 10-27-2022 09:01-0500 Systolic blood pressure 124 mm[Hg] Abdirahman Whitfield MD Work Phone: [facility] 07-21-2022 10:47-0400 Diastolic blood pressure 86 mm[Hg] Abdirahman Whitfield MD Work Phone: [facility] 07-21-2022 10:47-0400 Heart rate 89 /min Abdirahman Whitfield MD Work Phone: [facility] 07-21-2022 10:47-0400 Systolic blood pressure 126 mm[Hg] Abdirahman Whitfield MD Work Phone: [facility] 07-21-2022 09:48-0400 Body height 175.3 cm Abdirahman Whitfield MD Work Phone: [facility] 07-21-2022 09:48-0400 Body mass index (BMI) [Ratio] 43.56 kg/m2 Abdirahman Whitfield MD Work Phone: [facility] 07-21-2022 09:48-0400 Body temperature 97.81 [degF] Abdirahman Whitfield MD Work Phone: [facility] 07-21-2022 09:48-0400 Body weight 133.81 kg Abdirahman Whitfield MD Work Phone: [facility] 07-21-2022 09:48-0400 Respiratory rate 18 /min Abdirahman Whitfield MD Work Phone: [facility] 07-21-2022 09:48-0400 SaO2% (BldA) [Mass fraction] 96 % Abdirahman Whitfield MD Work Phone: [facility] 05-13-2022 08:59-0400 Body height 175.3 cm Fran Jarrett MD Work Phone: [facility] 05-13-2022 08:59-0400 Body mass index (BMI) [Ratio] 42.83 kg/m2 Fran Jarrett MD Work Phone: [facility] 05-13-2022 08:59-0400 Body temperature 96.91 [degF] Fran Jarrett MD Work Phone: [facility] 05-13-2022 08:59-0400 Body weight 131.54 kg Fran Jarrett MD Work Phone: [facility] 05-13-2022 08:59-0400 Heart rate 80 /min Fran Jarrett MD Work Phone: [facility] 05-13-2022 08:59-0400 SaO2% (BldA) [Mass fraction] 97 % Fran Jarrett MD Work Phone: [facility] 04-14-2022 08:36-0400 Body height 175.3 cm Abdirahman Whitfield MD Work Phone: [facility] 04-14-2022 08:36-0400 Body temperature 97.81 [degF] Abdirahman Whitfield MD Work Phone: [facility] 04-14-2022 08:36-0400 Diastolic blood pressure 83 mm[Hg] Abdirahman Whitfield MD Work Phone: [facility] 04-14-2022 08:36-0400 Heart rate 87 /min Abdirahman Whitfield MD Work Phone: [facility] 04-14-2022 08:36-0400 Respiratory rate 18 /min Abdirahman Whitfield MD Work Phone: [facility] 04-14-2022 08:36-0400 SaO2% (BldA) [Mass fraction] 96 % Abdirahman Whitfield MD Work Phone: [facility] 04-14-2022 08:36-0400 Systolic blood pressure 111 mm[Hg] Abdirahman Whitfield MD Work Phone: [facility] 03-30-2022 13:16-0400 Body height 175.3 cm Lonnie BOWEN Work Phone: [facility] 03-30-2022 13:16-0400 Body mass index (BMI) [Ratio] 42.77 kg/m2 Lonnie Ring [employer] Work Phone: 3(869)[phone] [place] [address] 03-30-2022 13:16-0400 Body temperature 97.5 [degF] Lonnie Ring [employer] Work Phone: 6(309)839-378527 [place] [address] 03-30-2022 13:16-0400 Body weight 131.36 kg Lonnie Ring [employer] Work Phone: 0(296)296-231627 [place] [address] 03-30-2022 13:16-0400 Diastolic blood pressure 80 mm[Hg] Lonnie Ring [employer] Work Phone: 7(400)516-256227 [place] [address] 03-30-2022 13:16-0400 Heart rate 110 /min Lonnie Ring [employer] Work Phone: 4(976)216-407927 [place] [address] 03-30-2022 13:16-0400 Respiratory rate 18 /min Lonnie Ring [employer] Work Phone: 9(887)565-788527 [place] [address] 03-30-2022 13:16-0400 SaO2% (BldA) [Mass fraction] 98 % Lonnie Ring [employer] Work Phone: 6(664)935-082727 [place] [address] 03-30-2022 13:16-0400 Systolic blood pressure 120 mm[Hg] Lonnie Ring [employer] Work Phone: 3(194)632-488527 [place] [address] 01-31-2022 15:07-0400 Body height 175.3 cm Lonnie Ring [employer] Work Phone: 6(033)[phone] [place] [address] 01-31-2022 15:07-0400 Body mass index (BMI) [Ratio] 44.75 kg/m2 Lonnie Ring [employer] Work Phone: 5(596)158-282427 [place] [address] 01-31-2022 15:07-0400 Body temperature 98.29 [degF] Lonnie Ring [employer] Work Phone: [facility] 01-31-2022 15:07-0400 Body weight 137.44 kg Lonnie Ring [employer] Work Phone: [facility] 01-31-2022 15:07-0400 Diastolic blood pressure 74 mm[Hg] Lonnie Ring [employer] Work Phone: [facility] 01-31-2022 15:07-0400 Heart rate 72 /min Lonnie Ring [employer] Work Phone: [facility] 01-31-2022 15:07-0400 SaO2% (BldA) [Mass fraction] 99 % Lonniefarshad Ring [employer] Work Phone: [facility] 01-31-2022 15:07-0400 Systolic blood pressure 106 mm[Hg] Lonnie Ring [employer] Work Phone: [facility] 01-27-2022 08:11-0400 Body height 175.3 cm Fran Jarrett MD Work Phone: [facility] 01-27-2022 08:11-0400 Body mass index (BMI) [Ratio] 44.01 kg/m2 Fran Jarrett MD Work Phone: [facility] 01-27-2022 08:11-0400 Body temperature 97 [degF] Fran Jarrett MD Work Phone: [facility] 01-27-2022 08:11-0400 Body weight 135.17 kg Fran Jarrett MD Work Phone: [facility] Encounters Encounter Date Encounter Type Care Provider Facility Start: 11-27-2023 End: 11-27-2023 Emergency department patient visit TOD ARROYO MD [facility] Start: 11-16-2023 End: 11-16-2023 Office outpatient visit 15 minutes Abdirahman Whitfield MD Work Phone: [facility] Procedures Date Procedure Procedure Detail Performing Clinician Start: 11-16-2023 [id number] ACTIVITY AN D IGG AB W/REFLEX TO INHIBITOR Abdirahman Whitfield MD Work Phone: Start: 11-16-2023 CBC AND ELECTRONIC DIFF Abdirahman Whitfield MD Work Phone: Start: 11-16-2023 Complete blood count with white cell differential, automated Abdirahman Whitfield MD Work Phone: Start: 11-16-2023 Lactate dehydrogenase ldh Abdirahman Whitfield MD Work Phone: Start: 09-16-2023 Incision & drainage abscess simple/single Ok Mudrakola DO Work Phone: Start: 02-13-2023 Hemoglobin glycosylated a1c Lonnie Ring [employer] Work Phone: Start: 10-27-2022 CBC AND ELECTRONIC DIFF Abdirahman Whitfield MD Work Phone: Start: 10-27-2022 Complete blood count with white cell differential, automated Abdirahman Whitfield MD Work Phone: Start: 10-27-2022 Lactate dehydrogenase ldh Abdirahman Whitfield MD Work Phone: Start: 10-06-2022 Mri any jt lower ext rem w/o contrast matrl Mark Korb DPM Work Phone: Start: 07-21-2022 CBC AND ELECTRONIC DIFF Abdirahman Whitfield MD Work Phone: Start: 07-21-2022 Complete blood count with white cell differential, automated Adbirahman Whitfield MD Work Phone: Start: 07-21-2022 Hemoglobin glycosylated a1c Lonnie Ring [employer] Work Phone: Start: 07-21-2022 Lipid panel Lonnie tinoco [employer] Work Phone: Start: 04-14-2022 CBC AND ELECTRONIC DIFF Abdirahman Whitfield MD Work Phone: Start: 04-14-2022 Complete blood count with white cell differential, automated Abdirahman Whitfield MD Work Phone: Start: 04-14-2022 Lactate dehydrogenase ldh Abdirahman Whitfield MD Work Phone: Start: 03-30-2022 Hemoglobin glycosylated a1c Lonnie Ring [employer] Work Phone: Start: 02-08-2022 Radex foot complete minimum 3 views Serge Murdock DPM Work Phone: Start: 01-27-2022 Radex spine lumbosac ral minimum 4 views Fran Jarrett MD Work Phone: Cardiac tamponade (disorder) NIDAL [employer] DO Ophthalmic surgery (qualifier value) NIDAL CHOUKnovelA DO Plan of Treatment Date Care Activity Detail Author Start: 2041 RSV Immunization aged 60 or older (1 - 1-dose 60+ series) RSV Immunization aged 60 or older (1 - 1-dose 60+ series) Pharmacopeia Start: 10-27-2032 Tetanus vaccination TETANUS U [facility] Start: 2031 Zoster Vaccines (1 of 2) Zoster Vaccines (1 of 2) [employer] Start: 02-15-2024 End: 02-15-2024 Patient encounter procedure 02/15/2024 8:40 AM EDT Office Visit [facility] [address] [place] [address] Edilia Robles, [employer] [address] [place] [address] [facility] Start: 11-16-2023 End: 11-15-2024 BLOOD, RESEARCH BLOOD, RESEARCH Lab Routine TTP (thrombotic thrombocytopenic purpura) Expected: 11/16/2023, Expires: 11/15/2024 [facility] Immunizations Immunization Date Immunization Notes Care Provider Fa milo 10-27-2022 diphtheria, tetanus toxoids and acellular pertussis vaccine, unspecified formulation Lonnie Ring [employer] Work Phone: [facility] 10-27-2022 tetanus toxoid, redu sunny diphtheria toxoid, and acellular pertussis vaccine, adsorbed; Translations: [TDAP VACCINE >10YO 0.5ML IM] Abdirahman Whitfield MD Work Phone: [facility] 09-29-2022 influenza virus vaccine, unspecified formulation Abdirahman Whitfield MD Work Phone: [facility] 09-28-2021 influenza virus vaccine, unspecified formulation Abdirahman Whitfield MD Work Phone: [facility] 04-29-2021 COVID-19 vaccine, AD 26, Akrla 0.5 ML Fran Jarrett MD Work Phone: [facility] 01-08-2016 tetanus toxoid, redu sunny diphtheria toxoid, and acellular pertussis vaccine, adsorbed CHINYERE KASPER DO [facility] Payers Date Payer Category Payer Medicaid [employer] [facility] MEDICA[facility] ODM [id number] 2022-Present [phone] [address] [place] [address] Medicaid HMO [id number] 2022 Unknown [id number] 2022 Unknown [id number] 2015 Unknown [id number]. 1.13.172.2.7.3. [id number] 2015 Unknown [id number] 1981 Unknown [id number] 840.1.465162.3.579.2.594 1981 Unknown [id number] 12.01.830.1.668381.3.579.2.594 1981 Unknown [id number] 2840.1.865086.3.579.2.594 1981 Unknown [id number] 12.01.830.1.983716.3.579.2.594 1981 Unknown [id number] 840.1.843710.3.579.2.594 1981 Unknown [id number] .1.632683.3.579.2.594 1981 Unknown [id number] 12.01.830.1.294465.3.579.2.594 1981 Unknown [id number] 12.01.830.1.665955.3.579.2.594 1981 Unknown [id number] 12.01.830.1.416114.3.579.2.594 1981 Unknown [id number] .1.682269.3.579.2.594 1981 Unknown [id number] 12.01.830.1.450633.3.579.2.594 1981 Unknown [id number] 12.01.830.1.041258.3.579.2.594 1981 Unknown [id number] 840.1.385692.3.579.2.594 1981 Unknown [id number] .1.889595.3.579.2.594 1981 Unknown [id number] 840.1.133936.3.579.2.594 1981 Unknown [id number] 840.1.455014.3.579.2.594 1981 Unknown [id number] 2.16.840.1.650217.3.579.2.594 1981 Unknown [id number] 2.16.840.1.107915.3.579.2.594 1981 Unknown [id number] 2.16.840.1.294467.3.579.2.594 1981 Unknown [id number] 2.16.840.1.921011.3.579.2.594 1981 Unknown [id number] 2.16.840.1.983135.3.579.2.594 1981 Unknown [id number] 2.16.840.1.320053.3.579.2.594 1981 Unknown [id number] 2.16.840.1.745400.3.579.2.1243 1981 Unknown [id number] 2.16.840.1.348625.3.579.2.627 Social History Date Type Detail Facility Start: 02-12-1994 End: 10-27-2022 Tobacco smoking status NHIS Smokes tobacco daily [facility] Start: 02-12-1994 History of tobacco use Cigarette Smoker [facility] Start: 09-22-2021 End: 06-29-2023 Cigarettes smoked current (pack per day) - Reported 1 [facility] Start: 09-22-2021 End: 10-27-2022 Tobacco use and exposure Former smokeless tobacco user [facility] Start: 01-27-2022 End: 03-23-2023 Alcohol intake Current non-drinker of alcohol (finding) [facility] Start: 09-22-2021 End: 09-16-2022 Tobacco Comment Keep's me calm in a stressful situation [facility] Start: 1980 Sex Assigned At Not on file [facility] Start: 01-15-2022 End: 10-27-2022 Exposure to SARS-CoV-2 (event) Unable to assess [facility] Start: 09-26-2022 End: 10-06-2022 Exposure to SARS-CoV-2 (event) Not sure [facility] Start: 06-29-2023 End: 09-16-2023 Alcohol Use Disorder Identification Test - Consumption [AUDIT-C] [facility] How often to you hav e a drink containing alcohol? Never [facility] How many standard dr inks containing alcohol do you have on a typical day? Patient does not drink [facility] Sex Assigned At Sex [facility] Start: 08-24-2017 Gender identity Identifies as male gender (finding) [facility] Start: 01-22-2019 Sexual orientation Heterosexual (finding) [facility] Medical Equipment Procedure Code Equipment Code Equipment Origin al Text Equipment Identifier Dates Cath Dial Hemosp lit 19cm [id number] Start: 10-26-2012 Cath Dial Hemosp lit 19cm [id number] Start: 11-02-2012 Use new needle w ith each insulin injection. [id number] Start: 10-20-2021 Use new needle w ith each insulin injection. [id number] Start: 05-26-2022 Goals Date Patient Goal Desired Activity /State Functional Status Date Assessment Result Facility 11-27-2023 Functional Status ID band on, Allergy Band on, Call device within reach, Bed in low position, Wheels locked, Upper/Half-Length side-rails up, personal items within reach, Bedside Cart Locked [facility] 11-03-2023 Functional Status ID band on, Call device within reach, Bed in low position, Wheels locked, Upper/Half-Length side-rails up [facility] Mental Status Date Assessment Result Facility 11-27-2023 Mental Status Oriented x 4 [facility] 11-03-2023 Mental Status Oriented x 4 [facility] Clinical Notes 01-27-2022 to 11-27-2023 Danya Glass DO - 11/16/2023 8:00 AM Rocio Chou RN - 11/16/2023 8:00 AM Connie Roland RN - 09/16/2023 3:55 PM Connie Roland RN - 09/16/2023 3:55 PM ESTDischarge Instructions Note Date & Type Note Facility 11-27-2023 Hospital Discharg e instructions Patient Education 11/27/2023 04:35:03 Carpal Tunnel Syndrome Carpal Tunnel Syndrome Carpal [...] bent back when typing. You may use fbrt-zqm-tjasogg pain medicine to treat pain and inflammation, [...] Your whole arm becomes swollen or weak [phone] [employer]. [address] [place] [address]. All rights reserved. This information is not intended as a substitute for professional medical care. Always follow your healthcare professional's instructions. Follow Up Care 11/27/2023 04:25:18 With:DO MONIQUE OLVERA DO Address: [address] [place] [phone] When:2-4 days [facility] 11-27-2023 Note Discharge Instructions Thank you for allowing [facility] to assist you with your healthcare needs. The following is important discharge information regarding your hospital visit. Diagnosis from Today's Visit Carpal tunnel syndrome of right wrist What to Do Next Instructions from Your Care Team No qualifying data available. Post Acute Orders No qualifying data available. You Need to Schedule the Following Appointments Follow Up with DO MONIQUE OLVERA DO When Within 2-4 days Where: [address] [place] [phone] Allergies Bentyl (rash) Deltasone (prednisone) (swelling) Flexeril [...] they may interact with your home medications. Please take this list to your next [...] bent back when typing. You may use yjym-ehp-izqgwwk pain medicine to treat pain and inflammation, [...] Your whole arm becomes swollen or weak [phone] [employer]. [address] [place] [address]. All rights reserved. This information is not intended as a substitute for professional medical care. Always follow your healthcare professional's instructions. Additional Information VACCINATE! IT SAVES LIVES! Members of the community who have not yet received the COVID-19 vaccine and would like to receive it can visit one of [facility] vaccine clinics. There are many vaccine clinic locations within the [facility]. For locations and available times, please visit [email or web address] [email or web address] It is important to note that some COVID mobile vaccine clinics are held outdoors and may be canceled in rainy or stormy conditions. To learn more about pediatric vaccinations (ages 5-11), we invite you to visit the [facility] webpage. https://www.[facility].org/p ages/6677-Zxdgz-Ddymoxkwuob-Freq ypvlsg-Whigf-Viyjciqpz.html To learn more about the COVID-19 vaccine, we invite you to visit the CDC website for a list of frequently asked questions. https://www.cdc.gov/coronavirus/ 2019-ncov/vaccines/faq.html [facility] Patient Portal Access Instructions: Stay connected with your healthcare team and access your personal medical information anytime with the [facility] Patient Portal. If you would like a full copy of your medical records please contact the [facility] Medical Records Department Monday through Monday between 8a.m. and 4:30p.m. Please follow the directions below to access the portal: 1.Access the email account you provided upon registration to the hospital.2.Look for an invitation email from [facility].3.Open the email and access the invitation link: Accept Invitation to [facility]4.Fill in the required ayon to create your account. Sign into www.[employer] with your username and password that you [...] you will allow to register on the [facility] Patient Portal for access to your information. You can also access the [facility] Patient Portal on the [employer] berna. Simply click on Health Records under Health Data and then click on the [employer] logo. HOW TO SAFELY DISPOSE OF PRESCRIPTION [...] Call your local pharmacy or go to http://[email or web address]/2M8Hi9b to find one close to you.3.Make use of household items: Use cat litter or old coffee grounds to dispose medications if other options are not available. Mix your drugs with these household products, seal them in an airtight container and throw it into the garbage. Call [facility]: [phone] to be sure your drugs can be [...] been reviewed and explained to me and I,JED GAMINOJAIRO understand my current condition and have read and understand these discharge instructions. I have received a written copy of the plan/instructions. If I have questions, I am aware that I should contact my doctor. 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 is a 43 y.o. 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 Hematology History Mr. Adkins is a 43-year-old male with a history of chronic relapsing TTP Interval History Overall reports feeling well and not concerned about TTP relapse at this time. He did have a headache yesterday, took Excedrin for pain. Reports that he does not have headaches frequently. Denies any issues with his memory. He has noticed some hearing loss bilaterally. Reports that when the wind blows his right ear can hurt. He was seen in the ED in September for cellulitis. He completed a course of antibiotics, no other infections. He has been trying to follow up with PCP regarding his diabetes, however has been unable to reschedule with them. He has some numbness tingling down his right arm that goes to his fingers. MEDICATIONS Current Outpatient Medications Medication Sig Ondansetron 8 MG Tab Dispersible tablet Take 1 tablet by mouth every 4 hours as needed. Alcohol Swabs Pads Use to give insulin up to 5 times daily Atorvastatin 10 MG tablet Take 1 tablet by mouth daily. (Patient not taking: Reported on 06/29/2023) Continuous Blood Gluc Predator Control Trapper (FreeStyle Roxi 14 Day [place]) Device Use to check blood sugar using the Freestyle Roxi sensors Continuous Blood Gluc Sensor (FreeStyle Roxi 14 Day Sensor) Misc Use to check blood sugars using the Freestyle Roxi [place]. Change sensor every 14 days. CUSTOM MEDICATION Diabetic shoes with 3 pairs of inserts As part of a comprehensive diabetic footcare program, the patient needs diabetic shoes and or foot orthoses to protect skin integrity. The patient has a diagnosis of diabetes and as such requires specialized accommodative footwear for effective diabetic foot management. The patient will follow-up with their certifying diabetes physician for routine diabetes management. DISABILITY PLACARD Disability placard end date 10/26/28 Glucagon, rDNA, (Glucagon Emergency) 1 MG Kit Use as needed for severe low blood sugar (Hypoglycemia) Lactulose 10 GM/15ML Solution oral solution Take 15 mL by mouth 4 times daily as needed for Constipation. Decrease after improved constipation (Patient not taking: Reported on 06/29/2023) Trulicity 1.5 MG/0.5ML Solution Pen-injector injection INJECT THE CONTENTS OF 1 PEN SUBCUTANEOUSLY ONCE A WEEK ALLERGIES is allergic to asa buff (mag [aspirin buffered], tramadol, aspirin, dicyclomine hcl, fentanyl [fentanyl], methadone, morphine, prednisone, propoxyphene, and gadavist [gadobutrol]. REVIEW OF SYSTEMS A fourteen point review of systems was completed and is negative except as noted in [place]. PHYSICAL EXAM There were no vitals filed for this visit. Smoking Status Every Day GENERAL: He is an alert and oriented male, well appearing, no acute distress. HEENT: His eye exam showed no scleral icterus. Ears: ear canals clear bilaterally. TMs appear red, could not appreciate any effusions CARDIAC: Exam showed normal S1 and S2 with a regular rate and rhythm. LUNGS: Clear bilaterally. SKIN: no obvious lesions or rash LABORATORY Results for orders placed or performed in visit on 06/29/23 CMPN WITHOUT GLUCOSE Result Value Ref Range Sodium 135 135 - 145 mmol/L Potassium 3.8 3.5 - 5.0 mmol/L Chloride 104 98 - 108 mmol/L BUN 10 7 - 25 mg/dL Creatinine 0.79 0.70 - 1.30 mg/dL Calcium 9.1 8.6 - 10.5 mg/dL ALP 120 32 - 126 U/L AST 36 10 - 39 U/L Total Protein 7.3 6.4 - 8.3 g/dL Albumin 4.2 3.5 - 5.0 g/dL Bilirubin Total 0.3 <1.5 mg/dL CO2 26 21 - 31 mmol/L ALT 66 (H) 10 - 52 U/L Bun/Crea Ratio 13 Anion Gap 9 7 - 17 mmol/L eGFR, CKD-EPI, Male >90 >=60 mL/min/1.73m2 LACTATE DEHYDROGENASE Result Value Ref Range LD Total 147 100 - 190 U/L FXYSXS27 IGG AB Result Value Ref Range KXNJJN28 IgG Antibody 18.1 (H) <=12.0 U/mL [id number] ACTIVITY Result Value Ref Range HKFIAH59 Activity 94 >=40 % CUJKCH30 Inhibitor Not Indicated CBC AND ELECTRONIC DIFF Result Value Ref Range WBC Count 10.20 (H) 3.73 - 10.10 K/uL RBC Count 5.04 4.38 - 5.83 M/uL Hemoglobin 15.4 13.4 - 16.8 g/dL Hematocrit 45.5 39.6 - 48.8 % Mean Cell Volume 90.3 79.0 - 94.5 fL Mean Cell Hgb 30.6 26.1 - 33.3 pg Mean Cell Hgb Conc 33.8 31.9 - 36.5 g/dL RBC Distribution 13.9 10.9 - 14.3 % Platelet Count 273 146 - 337 K/uL Mean Platelet Volume 9.6 8.7 - 12.3 fL DIFF STATUS Electronic Differential Segs + Bands Auto 61.1 % Immature Grans % 0.3 % Lymphocyte % Auto 23.7 % Monocyte % Auto 8.0 % Eosinophil % Auto 6.1 % Basophil % Auto 0.8 % Nucleated RBC 0.0 <=0.2 /100 WBC Segs + Bands,Absolute Auto 6.23 (H) 1.57 - 6.19 K/uL Immature Grans Absolute <0.04 <=0.07 K/uL Abs Lymph Auto 2.42 0.83 - 3.57 K/uL Abs Woods Auto 0.82 0.24 - 0.93 K/uL Abs Eos Auto 0.62 (H) 0.00 - 0.48 K/uL Abs Baso Auto 0.08 0.00 - 0.09 K/uL ASSESSMENT & PLAN Jairo Adkins Jr. is a 43 y.o. 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 1.Immune-mediated TTP Plan: Overall, Mr. Adkins continues to do well. He shows no signs of relapse today, platelet count WNL. We are still awaiting his XBDRAR01 activity to help predict the risk of relapse over the next 3 months. We will continue to monitor him for long-term complication that include short-term memory issues as well as cardiovascular complications and headaches. Part of that is his enrollment in our TTP cardiac MR study. He will come back to see us in 3 months, but we will be in contact with him with the results of his DJMIOH72 activity. Regarding ear pain, most likely viral otitis media. Expect pain to improve over the next several days. If pain worsens, patient should follow up with PCP or urgent care. Patient seen with Dr. Whitfield. Danya Glass, Heme/Onc Fellow, PGY-6 I interviewed and examined Mr Adkins and I agree with the findings and plan as dictated by Dr. Glass. 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 [id number] activity was normal suggesting a low risk for relapse. He will RTC in 3 months. Jose Whitfield Pt here for follow-up visit.Says he feels tired. Pt says: -Last 3-4 days its been hard to hear. Right ear sharp pain with hit the air outside. Any petechiae/bleeding/unusual bruising? YES/NO: no Any pain?YES-DESCRIBE/NO: Yes, describe: Right hand numbness and tingling for 3 weeks related to carpal tunnel . Drops stuff more. - if yes: - alleviating factors? None - last dose of OTC or prescription pain med? None - How often does pt need analgesic? None Fatigue? YES-DESCRIBE/NO: Yes, describe: Feel tired most of the time Headache? YES-DESCRIBE/NO: Yes, describe: had a headache yesterday Weakness? YES-DESCRIBE/NO: No Chest pain? YES-DESCRIBE/NO: No Mood issues? YES-DESCRIBE/NO: Yes, describe: Anger and frustration easily Memory, focus, or word finding issues? YES-DESCRIBE/NO: No Blood in urine or stool? No Clinical Research Lab Specimen Collection (refer to Research Active Tab/Research order to verify specimens needed and type of tubes) Clinical Trial Number: [facility] Time specimen obtained:[id number] Color or Research Tube Number of tubes drawn Lavender 3 ml EDTA Lavender 4ml EDTA 4 Lavender 6 ml EDTA Yellow: 8.5 ml ACD glass Green: 6.0 ml Sodium Heparin Red: 6.0 ml Serum Blue: 2.7 ml Na Citrate 4 Gold: 5.0 ml SST PAX-R: Paxgene Red PAX-B: Paxgene Blue Other (please specify): documented in this encounter [facility] 11-03-2023 Hospital Discharg e instructions Patient Education [...] bent back when typing. You may use qydq-iys-epabcoj pain medicine to treat pain and inflammation, [...] Your whole arm becomes swollen or weak [phone] [employer]. [address] [place] [address]. All rights reserved. This information is not intended as a substitute for professional medical care. Always follow your healthcare professional's instructions. Follow Up Care 11/03/2023 09:38:20 With:HENRY BARAJAS MD Address: [address] [place] [address] & [place] [address] [phone] When:2-4 days With:Follow up with primary care provider Address:Unknown When:2-4 days With:Call Physician Referral Address:Unknown When:2-4 days [facility] 11-03-2023 Note Discharge Instructions Thank you for allowing [facility] to assist you with your healthcare needs. [...] MD When Within 2-4 days Where: [address] [place] [address]- [phone] Follow Up with Follow up with primary [...] bent back when typing. You may use brkm-rem-lkjcagm pain medicine to treat pain and inflammation, [...] Your whole arm becomes swollen or weak [phone] [employer]. [address] [place] [address], [place] [address]. All rights reserved. This information is not intended as a substitute for professional medical care. Always follow your healthcare professional's instructions. Additional Information VACCINATE! IT SAVES LIVES! Members of the community who have not yet received the COVID-19 vaccine and would like to receive it can visit one of [facility] vaccine clinics. There are many vaccine clinic locations within the [facility]. For locations and available times, please visit [email or web address] [email or web address] It is important to note that some COVID mobile vaccine clinics are held outdoors and may be canceled in rainy or stormy conditions. To learn more about pediatric vaccinations (ages 5-11), we invite you to visit the [facility] webpage. https://www.[email or web address].org/p ages/6003-Nhtoa-Sdkedebywlj-Freq hjlioy-Ndgiw-Rasisqrwn.html To learn more about the COVID-19 vaccine, we invite you to visit the CDC website for a list of frequently asked questions. https://www.cdc.gov/coronavirus/ 2019-ncov/vaccines/faq.html [facility] Patient Portal Access Instructions: Stay connected with your healthcare team and access your personal medical information anytime with the [facility] Patient Portal. If you would like a full copy of your medical records please contact the [facility] Medical Records Department Monday through Monday between 8a.m. and 4:30p.m. Please follow the directions below to access the portal: 1.Access the email account you provided upon registration to the hospital.2.Look for an invitation email from [facility].3.Open the email and access the invitation link: Accept Invitation to [facility]4.Fill in the required ayon to create your account. Sign into www.[employer] with your username and password that you [...] you will allow to register on the [facility] Patient Portal for access to your information. You can also access the [employer] [facility] Patient Portal on the [employer]. Simply click on Health Records under Health Data and then click on the [employer] logo. HOW TO SAFELY DISPOSE OF PRESCRIPTION [...] Call your local pharmacy or go to http://[employer]/5J1Do6b to find one close to you.3.Make use of household items: Use cat litter or old coffee grounds to dispose medications if other options are not available. Mix your drugs with these household products, seal them in an airtight container and throw it into the garbage. Call [facility]: [phone] to be sure your drugs can be [...] aware that I should contact my doctor. 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 All questions answered, there are no further questions at this time. Patient ambulated off the unit independently at discharge. Nallely Roland RN 09/16/23 155 [facility] 09-16-2023 Emergency department Note Discharge instructions, follow up care, and pain management discussed with patient. All questions answered, there are no further questions at this time. Patient ambulated off the unit independently at discharge. Nallely Roland RN 09/16/23 155 Associated Order(s): Incision and Drainage EMERGENCY DEPARTMENT [...] 9 ) Medications lidocaine-EPINEPHrine (Xylocaine W/EPI) 1 %-1:707621 injection 10 mL (has no administration in [...] infection Alternatives discussed: Delayed treatment and referral Sayre protocol: Patient identity confirmed: Verbally with patient [...] 03:48:50 PM PATIENT REFERRED TO: Izabela Turner [address] [place] [address] Go in 3 days For wound re-check DISCHARGE MEDICATIONS: Discharge Medication List as of 09/16/2023 3:52 PM START taking these medications Details HYDROcodone-acetaminophen (Wolsey) 5-325 MG tablet Take 1 tablet by [...] light in reach. documented in this encounter [facility] 09-16-2023 Hospital Discharg e instructions Ok Rai DO - 09/16/2023 3:49 PM EST Keep taking the antibiotics you are prescribed at the other ER. Doxycycline is appropriate coverage for this type of infection. Please keep the wound clean and dry. The following attachments cannot be sent through Care Everywhere.Abscess Drainage, Percutaneous Discharge Instructions (Austrian)documented in this encounter [facility] 09-16-2023 Emergency department Triage note Patient ambulatory [...] to change into. Call light in reach. [facility] 09-16-2023 Physician Emergency department Note [...] 9 ) Medications lidocaine-EPINEPHrine (Xylocaine W/EPI) 1 %-1:699525 injection 10 mL (has no administration in [...] infection Alternatives discussed: Delayed treatment and referral Sayre protocol: Patient identity confirmed: Verbally with patient [...] PM PATIENT REFERRED TO: Izabela Turner [address] [phone] Go in 3 days For wound re-check DISCHARGE MEDICATIONS: Discharge Medication List as of 09/16/2023 3:52 PM START taking these medications Details HYDROcodone-acetaminophen (Wolsey) 5-325 MG tablet Take 1 tablet by mouth every 6 hours as needed for severe pain (7-10) for up to 3 days., Starting 09/16/2023, Until Tu09/19/2023 at 2359, Normal (Comment: Please note this [...] Medicine Provider Ok Rai DO 09/16/23 1712 [facility] 02-13-2023 History of Presen t illness [...] o Trulicity 1.5 mg weekly (Mondays; started 3/18/22; inc: 01/28/22) Side Effects/Adherence: Any injection site issues? No Tolerating medications: Yes Medication adherence: denies missed doses. Barriers to adherence: none identified DM Medication Hx Medication/Class Reported Intolerance/ Contraindication Metformin ER GI concerns [place] Stopped d/t good control on Trulicity monotherapy Home Blood Glucose Readings: Currently monitors blood sugars using Freestyle Roxi w/ Roxi [place] [place] Date Fasting After breakfast Before lunch After [...] 157 74 - 68 31 1 [place]i [place] 12[birth year] 138 81 6.6 82 16 - [...] 84 14 - 1 1 - 0 Isadora Hypoglycemia: Yes Frequency and timing of hypoglycemia: once a week Symptoms include: headache Treatment: starburst Hyperglycemia: No Current nutrition habits: 02/13/23 Breakfast: oatmeal w/ brown sugar OR eggs Lunch: skipping Supper: cheese bread OR sandwich Snacks: PB crackers Drinks: milk, juice, water, soda 10/12/21 (initial assessment) Seen by dietitian/ripsaw matcher: No Breakfast: cereal (rice krispies or honey [...] 6.1 (H) 07/21/2022 HGBA1C 6.3 (H) 03/30/2022 [id number] 0.00 06/22/2021 ANTPANCISLAB NEGATIVE 06/20/2021 IA2AB <5.4 [...] Dyer, DorianD, BCACP, TTS Specialty Practice Pharmacist [facility] Department of Family Medicine The Family [...] for remote monitoring. documented in this encounter [facility] 02-13-2023 Instructions Sonido Dyer RPH - [...] blood pressure reevaluation documented in this encounter [facility] 10-27-2022 History of Presen t [...] a week. He is staying at the [facility] and thus he is eating lunch there. He recently got kicked out of the half-way so he is eating breakfast at buddhism and is doing fast food for dinner. He is working with a home health care case manager to find housing. He is currently sleeping [...] that he has been living in a half-way since August after he was evicted from his home. He reports being kicked out of the half-way for not doing his chore duties and is not able to return for 30 days. He is currently living in his care. He is eating breakfast at a local [facility] and is eating lunch at the half-way. For dinner he will typically eat fast food or a cold cut sandwich he buys at the store. He does have foods stamps. He does have a home health care case manager through the half-way. He is trying to find housing around the [facility]. Right CTS: The patient reports being diagnosed [...] The patient continues to follow with Dr. Wihtfield in heme/onc for TTP. He last saw [...] insecurity. -Patient is planning on returning the half-way his and daughter are staying at in the next couple of weeks. -He is currently working with a home health care case manager through the half-way to find housing, however will see if [...] is currently following with a psychiatrist in [place]. -He is no longer taking the Lamotrigine [...] reviewing studies, etc. documented in this encounter [facility] 10-27-2022 History of Presen t illness [...] situations as his family is in the half-way and he has been asked to leave the half-way for 30 days, but is still engaged with his family, able to see them, doing his best to get reinstated in the half-way. He also has his social security appeal in process to help regain these benefits that he desperately needs. From TTP standpoint, he is doing well. His CBC is normal and we are awaiting his VUKJUH54 activity. His long-term complication is stable and [...] extremity edema. Chronic relapsing TTP. Overall, Mr. Adknis continues to do well. We will monitor him every 3 months and his BTWSNK44 activity for the need for recurrent rituximab [...] with him regarding the results of his AVZRTH67 activity when they are available. After visit summary was printed and given to patient. Discharge instructions and follow up appointments reviewed with patient. IHIS Fall prevention education handout included in AVS at time of discharge. All questions answered. Patient verbalized understanding. Patient and family encouraged to call with any additional questions documented in this encounter [facility] 10-27-2022 Instructions Lucy Green RN - 10/27/2022 8:45 AM EST Please feel free to contact the triage line at [phone] with any concerns. Hematology Primary Care Team Dr. Abdirahman Robles, JARRETT Green, FERMIN Lovett, [facility] Candice Gallardo, Research Coordinator Please plan ahead and request all prescription refills at your office visit with your doctor. Allow one week for prescription refills to be processed over the telephone. Please allow 2 weeks for all paperwork to be filled out. [email or web address] The medical information you will have access [...] applied to wood stairs to prevent sliding. [place] a bright colored line on the edge [...] Auto 2.24 0.83 - 3.57 K/uL Abs Woods Auto 0.77 0.24 - 0.93 K/uL Abs Eos Auto 0.52 (H) 0.00 - 0.48 K/uL Abs Baso Auto 0.08 0.00 - 0.09 K/uL documented in this encounter [facility] 09-16-2022 History of Presen t illness [...] daily., Disp: , Rfl: Continuous Blood Gluc Predator Control Trapper (FreeStyle [place]oxi 14 Day [place]) Device, Use to check blood sugar using the Freestyle Roxi sensors, Disp: 1 Each, Rfl: 0 Continuous Blood Gluc Sensor (FreeStyle [place]i 14 Day Sensor) Misc, Use to check blood sugars using the Freestyle Roxi [place]. Change sensor every 14 days., Disp: 2 [...] sensation is intact when tested with 5.07 [place] Nina monofilament bilaterally. Musculoskeletal: 5/5 muscle strength [...] to this visit. documented in this encounter [facility] 09-16-2022 History of Presen t illness [...] daily., Disp: , Rfl: Continuous Blood Gluc Predator Control Trapper (FreeStyle Roxi 14 Day [place]) Device, Use to check blood sugar using the Freestyle Roxi sensors, Disp: 1 Each, Rfl: 0 Continuous Blood Gluc Sensor (FreeStyle Roxi 14 Day Sensor) Misc, Use to check blood sugars using the Freestyle Roxi [place]. Change sensor every 14 days., Disp: 2 [...] sensation is intact when tested with 5.07 [place] Nina monofilament bilaterally. Musculoskeletal: 5/5 muscle strength [...] to this visit. documented in this encounter [facility] 09-16-2022 Miscellaneous Notes Addended by: SHIRA COTA on: 09/22/2022 08:47 AM Modules accepted: Orders Addended by: SHIRA COTA on: 09/23/2022 07:55 AM Modules accepted: Orders documented in this encounter [facility] 09-16-2022 Note Addended by: SHIRA COTA on: 09/22/2022 08:47 AM Modules accepted: Orders [facility] 09-16-2022 Note Addended by: SHIRA COTA on: 09/23/2022 07:55 AM Modules accepted: Orders [facility] 07-21-2022 History of Presen t illness [...] after he presented to local ED in [place] with diffuse ecchymoses and low platelet count. [...] of Rituxan and PLEX. His TTP and JMMKQX98 activity had been stable, then in December 2020 his BVGWCO81 activity decreased to less than 30% and [...] mouth 3 times daily. Continuous Blood Gluc Predator Control Trapper (FreeStyle Roxi 14 Day [place]) Device Use to check blood sugar using the Freestyle Roxi sensors Continuous Blood Gluc Sensor (FreeStyle Roxi 14 Day Sensor) Misc Use to check blood sugars using the Freestyle Roxi [place]. Change sensor every 14 days. Dulaglutide (Trulicity) [...] and is negative except as noted in [place]. PHYSICAL EXAM BP 126/86 (BP Position: Sitting) [...] Auto 2.39 0.83 - 3.57 K/uL Abs Woods Auto 0.63 0.24 - 0.93 K/uL Abs [...] to the of his daughter. Plan -awaiting TKHRAH83 activity -RTC 3 months It was a pleasure meeting Jairo Adkins JrLuis Armando today. Plan was discussed and mutually agreed upon with patient. All questions answered. Encouraged the patient to reach out to clinic if anything arises in interim. This case was discussed with Dr. Abdirahman Whitfield MD. Signed, Chana Robles, CENTRAL SUPPLY NURSE-[facility][id number] I interviewed and examined Mr Adkins and [...] Jose Whitfield documented in this encounter [facility] 07-21-2022 Instructions Lucy Green RN - 07/21/2022 8:30 AM EDT Please feel free to contact the triage line at [phone] with any concerns. Hematology Primary Care Team JARRETT Ferrari RN Gifty Menka, [facility] Candicerylie Gallardo, Research Coordinator Please plan ahead and request all prescription refills at your office visit with your doctor. Allow one week for prescription refills to be processed over the telephone. Please allow 2 weeks for all paperwork to be filled out. [facility] The medical information you will have [...] applied to wood stairs to prevent sliding. [place] a bright colored line on the edge [...] Auto 2.39 0.83 - 3.57 K/uL Abs Woods Auto 0.63 0.24 - 0.93 K/uL Abs Eos Auto 0.53 (H) 0.00 - 0.48 K/uL Abs Baso Auto 0.10 (H) 0.00 - 0.09 K/uL documented in this encounter [facility] 05-13-2022 History of Presen t illness [...] daily., Disp: , Rfl: Continuous Blood Gluc Predator Control Trapper (FreeStyle Roxi 14 Day [place]) Device, Use to check blood sugar using the Freestyle Roxi sensors, Disp: 1 Each, Rfl: 0 Continuous Blood Gluc Sensor (FreeStyle Roxi 14 Day Sensor) Misc, Use to check blood sugars using the Freestyle Roxi [place]. Change sensor every 14 days., Disp: 2 [...] 31GX5/16 ) 31G X 8 MM [facility] [place] Use new needle with each insulin injection., [...] voiced understanding. He will get tens from [employer]. Fran Jarrett MD Flour Worker - Clinical Department of Anesthesiology and Pain Medicine documented in this encounter [facility] 05-12-2022 History of Presen t illness [...] daily., Disp: , Rfl: Continuous Blood Gluc Predator Control Trapper (FreeStyle Roxi 14 Day [place]) Device, Use to check blood sugar using the Freestyle Roxi sensors, Disp: 1 Each, Rfl: 0 Continuous Blood Gluc Sensor (FreeStyle Roxi 14 Day Sensor) Misc, Use to check blood sugars using the Freestyle Roxi [place]. Change sensor every 14 days., Disp: 2 [...] 31GX5/16 ) 31G X 8 MM [facility] [place] Use new needle with each insulin injection., [...] sensation is intact when tested with 5.07 [place] Nina monofilament bilaterally. Musculoskeletal: 5/5 muscle strength [...] problems or concerns documented in this encounter [facility] 04-14-2022 History of Presen t illness [...] and we will continue to monitor. His DGHBED10 activity to help predict the risk of relapse to determine when he may require additional prophylactic rituximab with his primary care physician here at [facility] managing his diabetes and other medical issues [...] any additional questions documented in this encounter [facility] 04-14-2022 Instructions Lucy Green RN - 04/14/2022 8:20 AM EDT Please feel free to contact the triage line at [phone] with any concerns. Hematology Primary Care Team Dr. Abdirahman Ospina, Hematology Fellow Lucy Green, RN Hilary Lovett, [facility] Candice Gallardo, Research Coordinator Please plan ahead and request all prescription refills at your office visit with your doctor. Allow one week for prescription refills to be processed over the telephone. Please allow 2 weeks for all paperwork to be filled out. [facility] The medical information you will have access [...] applied to wood stairs to prevent sliding. [place] a bright colored line on the edge [...] Auto 2.26 0.83 - 3.57 K/uL Abs Woods Auto 0.77 0.24 - 0.93 K/uL Abs Eos Auto 0.64 (H) 0.00 - 0.48 K/uL Abs Baso Auto 0.09 0.00 - 0.09 K/uL documented in this encounter [facility] 03-30-2022 History of Presen t illness [...] different statin. The 10-year ASCVD risk score (Ez DC Jr., et al., 2013) is: 16.9% Values [...] He has not followed up with the [facility]. The patient also reports ongoing left ankle [...] -Advised patient to follow up with the [facility] to discuss ongoing pain. 3. Insertional Achilles [...] lav tubes drawn documented in this encounter [facility] 02-08-2022 History of Presen t illness [...] daily., Disp: , Rfl: Continuous Blood Gluc Predator Control Trapper (FreeStyle Roxi 14 Day [place]) Device, Use to check blood sugar using the Freestyle Roxi sensors, Disp: 1 Each, Rfl: 0 Continuous Blood Gluc Sensor (FreeStyle Roxi 14 Day Sensor) Misc, Use to check blood sugars using the Freestyle Roxi [place]. Change sensor every 14 days., Disp: 2 [...] 31GX5/16 ) 31G X 8 MM [facility] [place] Use new needle with each insulin injection., [...] sensation is intact when tested with 5.07 [place] Nina monofilament bilaterally. Musculoskeletal: 5/5 muscle strength [...] problems or concerns documented in this encounter [facility] 01-31-2022 History of Presen t illness Narrative Chief Complaint Patient presents with Back Pain Pt states back pain has stayed the same since last visit. Pt states the route specialist did prescribe him a tens unit but he cannot find a place that will fill the prescription. History of Present Illness: Mr. Adkins is a 41 y.o. male with a PMH significant for TTP, T2DM, essential HTN, obesity, chronic knee pain, and DDD who presents today for evaluation of low back pain. Low back pain: The patient has been following with the [facility] for low back pain. His last appointment [...] lumbar spine. At his last visit with [facility] patient was advised to continue PT and [...] sx above. documented in this encounter [facility] 01-27-2022 History of Presen t illness Narrative [facility] Referred by: ANDRÉS Carrion [address] [place] [address] PCP: ANDRÉS Carrion (General) Reason for consult: [...] busPIRone 10 MG tablet, Continuous Blood Gluc Predator Control Trapper (FreeStyle Roxi 14 Day [place]) Device, Continuous Blood Gluc Sensor (FreeStyle Roxi [...] documentation of this patient. Fran Jarrett MD Flour Worker Anesthesiology / Pain Management [facility] documented in this encounter [facility] Evaluation + Plan note No data available for this section [facility] Chronic bilateral low back pain with left-sided sciatica Myalgia Mylagia and myositis, unspecified Strain of lumbar region, initial encounter Class 3 severe obesity due to excess calories with body mass index (BMI) of 40.0 to 44.9 in adult, unspecified whether serious comorbidity present [facility] Diagnosis Chronic bilateral low back pain with left-sided sciatica- Primary [facility] Diagnosis 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 Bilateral foot pain Pain in limb Postcalcaneal bursitis of right foot [facility] Diagnosis Type 2 diabetes mellitus without complication, with long-term current use of insulin- Primary 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 Postcalcaneal bursitis of right foot [facility] Diagnosis 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 [facility] Diagnosis Insertional Achilles tendinopathy- Primary Retrocalcaneal exostosis Exostosis of unspecified site Postcalcaneal bursitis of right foot Bilateral foot pain Pain in limb [facility] Diagnosis Myalgia- Primary Mylagia and myositis, unspecified Class 3 severe obesity due to excess calories with body mass index (BMI) of 40.0 to 44.9 in adult, unspecified whether serious comorbidity present Chronic bilateral low back pain without sciatica Cervicalgia Muscle spasm of back Other symptoms referable to back [facility] Diagnosis 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 Type 2 diabetes mellitus without complication, with long-term current use of insulin Encounter for follow-up [facility] Diagnosis Insertional Achilles tendinopathy- Primary Other chronic pain Chronic heel pain, right Chronic heel pain, left [facility] Insertional Achilles tendinopathy- Primary Other chronic pain Chronic heel pain, right Chronic heel pain, left Encounter for diabetic foot exam Hammertoe, bilateral [facility] Diagnosis Insertional Achilles tendinopathy [facility] Diagnosis 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 [facility] Diagnosis Well adult exam- Primary Routine [...] vaccination Need for prophylactic vaccination with combined zazjmkozfi-wxvuajg-voviizwun (DTP) vaccine [facility] Diagnosis Type 2 diabetes mellitus without complication, with long-term current use of insulin- Primary [facility] Diagnosis Gluteal abscess- Primary Cellulitis and abscess of buttock [facility] Diagnosis 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 documented in this encounter [facility] for referral (narrative)* Consultation (Routine) - New Request Specialty Diagnoses / Procedures Referred By Contac t Referred To Contact Multispecialty Diagnoses Insertional Achilles tendinopathy Shira Cota DPM [address] [facility] [address] [place] [address] Referral ID Status Reason Start Date Expiration Date V isits Requested Visits Authorized [id number] New Request 09/16/2022 10/11/2023 1 1 * MRI/CAT Scan (Routine) - New Request Specialty Diagnoses / Procedures Referred By Contac t Referred To Contact Diagnoses Insertional Achilles tendinopathy Procedures MRI ANKLE LEFT WITHOUT CONTRAST HI MRI LOWER EXTREM JT, W/O CONTRAST Shira Cota DPM [address] [facility] [address] [place] [address] Referral ID Status Reason Start Date Expiration Date V isits Requested Visits Authorized [id number] New Request 09/16/2022 10/11/2023 1 1 [facility] for referral (narrative)* Consultation (Routine) - New Request Specialty Diagnoses / Procedures Referred By Contac t Referred To Contact Hand Diagnoses Carpal tunnel syndrome of right wrist Lonnie Ring APRN-CNP [address] [facility] [address] [place] [address] Referral ID Status Reason Start Date Expiration Date V isits Requested Visits Authorized [id number] New Request 10/27/2022 11/21/2023 1 1 * Adjunctive Therapy (Routine) - Closed Specialty Diagnoses / Procedures Referred By Camila t Referred To Contact Social Work Diagnoses Housing instability Food insecurity Lonnie Ring APRN-CNP [address] [address] Referral ID Status Reason Start Date Expiration Date Visits Re quested Visits Authorized [id number] Closed 10/27/2022 11/21/2023 1 1 [facility] Advance Directives Latest Code Status on File Code Status [...] Murdock L, DPM [address] [place] [id number] Referral ID Status Reason Start Date Expiration Date V isits Requested Visits Authorized [id number] New Request 02/08/2022 03/05/2023 1 1 Specialty Diagnoses / Procedures Referred By Contac t Referred To Contact Diagnoses Insertional Achilles tendinopathy Procedures MRI ANKLE LEFT WITHOUT CONTRAST HI MRI LOWER EXTREM JT, W/O CONTRAST Shira Cota, DPM [address] [address] Referral ID Status Reason Start Date Expiration Date Visits Re quested Visits Authorized [id number] Closed 09/16/2022 10/11/2023 1 1 Summary Purpose Family History No Family History Records FoundNo Family History Records FoundNo Family History Records Found No data available for this section No Family History Records Found No data available for this section Additional Source Comments Reason for Visit (unrecogniz ed section and content) Specialty Diagnoses / Procedures Referred By Contac t Referred To Contact Spine Diagnoses Chronic bilateral low back pain with left-sided sciatica Lonnie Ring, CENTRAL SUPPLY NURSE-[employer] [address] [facility] [place] [address] Referral ID Status Reason Start Date Expiration Date V isits Requested Visits Authorized [id number] New Request 01/06/2022 01/31/2023 1 1 Reason Comments Back Pain Pt states back pain has stayed the same since last visit. Pt states the route specialist did prescribe him a tens unit [...] Contact Podiatry Diagnoses Left Achilles tendinitis Lonnie Ring, CENTRAL SUPPLY NURSE-[employer] [address] [place] [address] Referral ID Status Reason Start Date Expiration Date V isits Requested Visits Authorized [id number] New Request 12/08/2021 01/02/2023 1 1 Specialty Diagnoses / Procedures Referred By Camila ward Referred To Contact Diagnoses Insertional Achilles tendinopathy Procedures XR FOOT RIGHT 3 VIEWS Serge Murdock, DPM [address] [place] [address] Referral ID Status Reason Start Date Expiration Date V isits Requested Visits Authorized [id number] New Request 02/08/2022 03/05/2023 1 1 Reason [...] tendinopathy Procedures MRI ANKLE LEFT WITHOUT CONTRAST HI MRI LOWER EXTREM JT, W/O CONTRAST Shira Cota, BENNETT [address] [facility] [address] [place] [address] Referral ID Status Reason Start Date Expiration Date Visits Re quested Visits Authorized [id number] Closed 09/16/2022 10/11/2023 1 1 Reason Comments Physical Specialty Diagnoses / Procedures Referred By Camila t Referred To Contact Diagnoses Research exam Procedures MRI CARDIAC STRESS WITH CONTRAST HI CARDIAC MRI W/W/O CONTRAST W STRESS Yoseph Qureshi MD [address] [place] [address] Referral ID Status Reason Start Date Expiration Date V isits Requested Visits Authorized [id number] Auth Not Needed 01/18/2023 02/12/2024 1 1 Reason Comments Diabetes Reason Comments Abscess Left butt cheek boil that started on Monday, and has gotten progressively worse per patient; he attempted to sarmad it himself on Monday and used warm compresses on Monday as well; denies fevers or chills Care Teams (unrecognized sec tion and content) Care Team Personnel Name: PHYSICIAN, NONE Position: Physician Member Role: Primary Care Physician Care Team Related Persons Name: EL ADKINS Address: [place] [address] Name: AURELIO OROZCO Learning Engineer Relationship Specialty Start Date End Date Lonnie Ring APRN-[employer] [address] [place] [address] PCP - General Certified Nurse Practitioner 09/22/21 Learning Engineer Relationship Specialty Start Date End Date Lonnie Ring APRN-[employer] [address] [place] [address] PCP - General Certified Nurse Practitioner 09/22/21 Learning Engineer Relationship Specialty Start Date End Date Lonnie Ring APRN-[employer] [address] [place] [address] PCP - General Certified Nurse Practitioner 09/22/21 Learning Engineer Relationship Specialty Start Date End Date Lonnie Ring APRN-[employer] [address] [place] [address] PCP - General Certified Nurse Practitioner 09/22/21 Learning Engineer Relationship Specialty Start Date End Date Lonnie Ring [facility] [address] [place] [address] PCP - General Certified Nurse Practitioner 09/22/21 Learning Engineer Relationship Specialty Start Date End Date Lonnie Ring [facility] [address] [place] [address] PCP - General Certified Nurse Practitioner 09/22/21 Learning Engineer Relationship Specialty Start Date End Date Lonnie Ring [facility] [address] [address] [place] [address] PCP - General Certified Nurse Practitioner 09/22/21 Learning Engineer Relationship Specialty Start Date End Date Lonnie Ring [facility] [address] [place] [address] PCP - General Certified Nurse Practitioner 09/22/21 Learning Engineer Relationship Specialty Start Date End Date Lonnie Ring [facility] [address] [place] [id number] PCP - General Certified Nurse Practitioner 09/22/21 Learning Engineer Relationship Specialty Start Date End Date Lonnie Ring [facility] [address] [place] [id number] PCP - General Certified Nurse Practitioner 09/22/21 Learning Engineer Relationship Specialty Start Date End Date Lonnie Ring [facility] [address] [place] [address] PCP - General Certified Nurse Practitioner 09/22/21 Learning Engineer Relationship Specialty Start Date End Date [facility]nie [facility] [address] [place] [address] PCP - General Certified Nurse Practitioner 09/22/21 Learning Engineer Relationship Specialty Start Date End Date Lonnie Ring [facility] [address] [place] [address] PCP - General Certified Nurse Practitioner 09/22/21 Learning Engineer Relationship Specialty Start Date End Date Lonnie Ring [facility] [address] [place] [address] PCP - General Certified Nurse Practitioner 09/22/21 Learning Engineer Relationship Specialty Start Date End Date Izabela Turner [address] [place] [id number] PCP - General 09/16/23 Learning Engineer Relationship Specialty Start Date End Date Polo Meredith APRN-CNP [address] [facility] [address] [place] [address] PCP - Family Medicine Certified Nurse Practitioner 08/04/23 Polo Meredith [facility] [facility] [address] [facility] [address] [place] [address] PCP - General Certified Nurse Practitioner 08/04/23 (unrecognized sect ion and content) No Status Records FoundNo Status Records FoundNo Status Records FoundNo Status Records Found INFORMATION SOURCE (unrecogn ized section and content) DATE CREATED AUTHOR AUTHOR'S ORGANIZ ATION 09/18/2023 [facility] DATE CREATED AUTHOR AUTHOR'S ORGANIZ ATION 09/23/[address] [facility] DATE CREATED AUTHOR AUTHOR'S ORGANKORI ATION 11/09/2023 [facility] Scheduled Active and Recently Administ ered Medications [...] BE BASED ON THE PRIMARY CLINICAL RECORDS. [employer] provides no warranty or guarantee of the accuracy or completeness of information in this document.
--- NOTE | 2023-11-30 04:50 | EDS_ITS ---
HPI History of Present Illness Chief Complaint: Upper Extremity Injury Informant: patient Narrative Narrative: Patient is a 43-year-old male with past medical history of TTP who is right-hand dominant. He states roughly 1 month ago he was lifting up his daughter who weighs approximately 25 pounds and after that noticed pain in his right shoulder. He states that he has increased pain with certain motions and he has difficulty sleeping secondary to the pain. He states he was seen in the ER and had an x-ray which showed no signs of bony injury. He denies any repeat injury but secondary to persistent pain comes in for evaluation [facility] Medical History Anxiety Bipolar disorder Depression Diabetes Migraines Smoker Substance abuse TTP (thrombotic thrombocytopenic purpura) Home Medications dulaglutide 0.75 mg/0.5 mL subcutaneous pen injector (Trulicity) 0.75 mg subcut QWEEK 01/06/22 [History Last Taken Unknown] hydrocodone-acetaminophen 5-325mg 5mg-325mg 1 tab PO Q4H PRN PRN Pain 2 days #10 TABLETS 05/23/23 [Rx Last Taken Unknown] hydrocodone-acetaminophen 5-325mg 5mg-325mg 1 tab PO Q6H PRN PRN Pain 1 day #4 TABLETS 10/29/23 [Rx Last Taken Unknown] diclofenac sodium 1 % topical gel 2.25 inch topical .qd-tid PRN joint pain 10 days #100 grams 11/10/23 [Rx Last Taken Unknown] hydrocodone-acetaminophen 5-325mg 5mg-325mg 1 tab PO Q6H PRN pain 3 days #12 tabs 11/30/23 [Rx Last Taken Unknown] Allergy/AdvReac Type Severity Reaction Status Date / Time adhesive Allergy Rash Verified 11/30/23 03:39 dicyclomine HCl [From Bentyl] Allergy Hives Verified 11/30/23 03:39 fentanyl Allergy Hives Verified 11/30/23 03:39 Latex, Natural Rubber Allergy Rash Verified 11/30/23 03:39 methadone Allergy Other Verified 11/30/23 03:39 prednisone Allergy Rash Verified 11/30/23 03:39 tramadol HCl [From Ultram] Allergy Hives Verified 11/30/23 03:39 aspirin AdvReac Other Verified 11/30/23 03:39 ketorolac tromethamine AdvReac Upset Verified 11/30/23 03:39 [From Toradol] Stomach Family History Other Diabetes Surgical History H/O eye surgery Social History household members: spouse Smoking Status: Current every day smoker tobacco type: cigarettes substance use type: former substance user ROS ROS ED Constitutional Constitutional ED: Denies chills or fever(s) ENT ENT ED: Denies sore throat Cardiovascular Cardiovascular: Denies chest pain Respiratory/Chest Respiratory/Chest: Denies cough or dyspnea Gastrointestinal Gastrointestinal: Denies abdominal pain, diarrhea, nausea or vomiting Genitourinary Genitourinary ED: Denies dysuria Musculoskeletal Musculoskeletal: Reports other Details: Positive right shoulder pain ; Denies back pain or neck pain Integumentary Denies Abrasions or rash Neurologic Neurologic: Denies headache(s) or weakness Hematologic/Lymphatic Hematologic/Lymphatic: Reports easy bleeding and easy bruising EXAM Physical Exam Const Vital Signs: 11/30/23 03:35 Temperature 98.3 F Temperature Source Temporal Pulse Rate 102 H Respiratory Rate 16 Blood Pressure 140/90 H Blood Pressure Mean 106 Pulse Ox 98 Oxygen Delivery Method Room Air Positive well nourished and well developed General Appearance ED: well developed HEENT HEENT Narrative: Normocephalic atraumatic Eyes PERRL and EOMs intact bilaterally Neck full ROM and supple Neck Narrative: No bony deformity or step-off of the cervical spine no midline pain with palpation Negative Spurling sign bilaterally Resp normal respiratory effort and clear to auscultation bilaterally Cardio regular rate and regular rhythm Back/Spine Back/Spine Narrative: No bony deformity or step-off of the thoracic or lumbar spine no midline pain on palpation Extremity Extremity Narrative: Right upper extremity is neurovascularly intact; AIN/PIN are intact and normal. Active range of motion is decreased secondary to pain. No bony deformity or joint effusion noted negative sulcus sign. No pain on palpation over top the acromioclavicular joint. Patient does have mild pain to palpation in the anterior aspect of the right shoulder extending from approximately the deltoid towards the clavicle concerning for supraspinatus injury. There is increased pain with internal rotation front shoulder raising and abduction. Remainder of the exam is normal Neuro oriented x3, CN's II-XII intact bilaterally, moves all extremities and no focal motor deficits Sensorium / Orientation: alert Psych mental status grossly normal Skin no rashes or lesions noted Skin Narrative: No overlying soft tissue changes to suggest trauma or infection MDM MDM MDM Narrative Medical decision making narrative: Patient presented to the ER hypertensive otherwise with stable vitals. He reported pain in his right shoulder after lifting his daughter roughly 1 month ago and already had negative x-rays. Demential diagnosis is for rotator cuff tendinitis versus tear versus cervical radiculopathy versus labrum injury. At this time based on the location of the patient's pain along with the fact he has increased pain with External rotation front shoulder raising and abduction I have concern for supraspinatus injury. However as he is neurovascularly intact without signs of cellulitis or abscess or gout there is no need for emergent orthopedic consultation or MRI and he can be evaluated and have this done on an outpatient basis History & Record Review Discussion w/independent historian: Patient Discharge Plan Triage Chief Complaint: Upper Extremity Injury ED Provider: Desmond Mendoza Dx/Rx/DC Orders Clinical Impression: Rotator cuff dysfunction, TTP (thrombotic thrombocytopenic purpura), Diabetes mellitus Instructions: Rotator Cuff Injury, The Shoulder Joint Prescriptions: New hydrocodone-acetaminophen 5-325 mg tablet 1 tab PO Q6H PRN (Reason: pain) 3 Days Qty: 12 0RF No Action Trulicity 0.75 mg/0.5 mL pen injector 0.75 mg SUBCUT QWEEK hydrocodone-acetaminophen [hydrocodone-acetaminophen] 5-325 mg tablet 1 tab PO Q4H PRN PRN (Reason: Pain) 2 Days Qty: 10 0RF diclofenac sodium 1 % gel 2.25 inch topical .qd-tid PRN (Reason: joint pain) 10 Days Qty: 100 0RF hydrocodone-acetaminophen 5-325 mg tablet 1 tab PO Q6H PRN PRN (Reason: Pain) 1 Days Qty: 4 0RF Primary Care Provider: Care Physician,No Primary Referrals: Polo Ramirez MD [Med Staff - Active Staff] - Care Physician,No Primary [Primary Care Provider] - Activity Restrictions/Additional Instructions: Please follow-up with Dr. Ramirez or your family doctor to discuss outpatient MRI and/or orthopedic referral to further assess the cause of your shoulder pain which I feel is related to rotator cuff dysfunction. Sleep in a recliner to help reduce pain and wear your sling for stabilization. Remember to take your arm out of the sling and perform range of motion exercises at least 3 times a day to prevent frozen shoulder. Disposition Disposition: Home, Self Care Discharge Date/Time: 11/30/23 04:57
[2023-11-30 04:55] VITALS: BP 140/90; PULSE 90; RESP 18; TEMP 36.8; O2SAT 98
== END 2023-11-30 04:57 | disposition home or self-care (01) ==
PROVIDERS: Emergency Provider Emergency Medicine; Visit Provider Emergency Medicine
DX: M25.511 Pain in right shoulder (principal); M31.10 Thrombotic microangiopathy, unspecified; E11.9 Type 2 diabetes mellitus without complications; F17.210 Nicotine dependence, cigarettes, uncomplicated
CPT/HCPCS: 99283

== ENCOUNTER 2023-12-12 03:57 | Emergency (ER) | payer MEDICAID, SELFPAY ==
[2023-12-12 04:01] VITALS: PULSE 95; RESP 16; TEMP 36.5; O2SAT 89; BMI 42.5
--- NOTE | 2023-12-12 04:27 | ED.VIS.BACK ---
HPI History of Present Illness Chief Complaint: Back Informant: patient Narrative Narrative: Patient is a 43-year-old male with history of degenerative disc disease, diabetes mellitus, nicotine abuse and TTP presenting for left lower back pain. Patient has associated trauma. States it has been progressing over the past few days but became worse tonight. Woke him up from sleep. He states it is mostly in his left lower back and radiates to the midline. Denies any pain radiation down his leg. Denies any leg weakness. Has tried [id number] Excedrin, Tylenol and ibuprofen with no relief of his symptoms. He could not sleep and noted him to do so came to the ER for further evaluation. Denies any bowel or bladder incontinence. Denies any saddle anesthesia. PFSH [facility] Medical History Anxiety Bipolar disorder Depression Diabetes Migraines Smoker Substance abuse TTP (thrombotic thrombocytopenic purpura) Home Medications dulaglutide 0.75 mg/0.5 mL subcutaneous pen injector (Trulicity) 0.75 mg subcut QWEEK 01/06/22 [History Last Taken Unknown] hydrocodone-acetaminophen 5-325mg 5mg-325mg 1 tab PO Q6H PRN pain 3 days #12 tabs 11/30/23 [Rx Last Taken Unknown] cyclobenzaprine 10 mg tablet 10 mg PO TID PRN Muscle Spasm #20 TABLETS 12/12/23 [Rx Last Taken Unknown] lidocaine 5 % topical patch (Lidoderm) 1 patch topical DAILY #15 ea 12/12/23 [Rx Last Taken Unknown] Allergy/AdvReac Type Severity Reaction Status Date / Time adhesive Allergy Rash Verified 12/01/23 10:36 dicyclomine HCl [From Bentyl] Allergy Hives Verified 12/01/23 10:36 fentanyl Allergy Hives Verified 12/01/23 10:36 Latex, Natural Rubber Allergy Rash Verified 12/01/23 10:36 methadone Allergy Other Verified 12/01/23 10:36 prednisone Allergy Rash Verified 12/01/23 10:36 tramadol HCl [From Ultram] Allergy Hives Verified 12/01/23 10:36 aspirin AdvReac Other Verified 12/01/23 10:36 ketorolac tromethamine AdvReac Upset Verified 12/01/23 10:36 [From Toradol] Stomach Family History Other Diabetes Surgical History H/O eye surgery Social History household members: spouse Smoking Status: Current every day smoker tobacco type: cigarettes substance use type: former substance user ROS ROS ED Constitutional Constitutional ED: Denies chills or fever(s) Respiratory/Chest Respiratory/Chest: Denies dyspnea Gastrointestinal Gastrointestinal: Denies abdominal pain, nausea or vomiting Musculoskeletal Musculoskeletal: Reports back pain; Denies myalgias Integumentary Denies rash Neurologic Neurologic: Denies headache(s), paresthesias or weakness Psychiatric Psychiatric: Denies anxiety Hematologic/Lymphatic Hematologic/Lymphatic: Reports easy bruising EXAM Physical Exam Const Vital Signs: 12/12/23 04:01 12/12/23 04:39 Temperature 97.7 F L 98.1 F Temperature Source Oral Pulse Rate 95 85 Respiratory Rate 16 16 Blood Pressure 111/78 Blood Pressure Mean 89 Pulse Ox 89 94 Oxygen Delivery Method Room Air Positive well nourished and well developed General Appearance ED: well developed HEENT Reports moist mucous membranes Resp normal respiratory effort and clear to auscultation bilaterally Cardio regular rate, regular rhythm and no murmurs Cardio Narrative: 2+ bilateral DP pulses GI normal to inspection, nondistended, normoactive bowel sounds Back/Spine normal to inspection Back/Spine Narrative: No midline thoracic or spinal tenderness. Patient does have some paraspinal tenderness on the left lumbar region approximately L3 and L4. Cervical Spine: Negative for cervical spine tenderness Lumbar Spine / Lower Back: straight leg raise negative bilaterally Extremity normal to inspection General Extremety ED: Negative for edema or tenderness General Extremity: Negative for edema Neuro oriented x3 and no sensory deficits noted Sensorium / Orientation: alert Motor Exam: strength 5/5 throughout Psych mental status grossly normal Skin no rashes or lesions noted MDM MDM MDM Narrative Medical decision making narrative: Patient is evaluated for worsening low back pain. Suspect is muscle skeletal. Does not have any overlying bony tenderness. Patient had a spinal x-ray performed 2 years ago that did not show any acute process. Patient does not report any fever red flag symptoms and I do not think requires further imaging. He does not have any focal neurologic deficits. He drove himself here. Will be given a Lidoderm patch in the ER and a prescription for muscle relaxer. At this time I do not think opioids are an appropriate prescription. Patient has had frequent visits to the ER for muscle skeletal related complaints. Will be given return precautions. Discharged home in stable condition. Physical exam and HPI are not consistent with renal colic, pyelonephritis or lumbar radiculopathy. Discharge Plan Triage Chief Complaint: Back ED Provider: Ivon Garcia Dx/Rx/DC Orders Clinical Impression: Acute lumbar myofascial strain Instructions: ED Back Sprain/Strain Prescriptions: New cyclobenzaprine 10 mg tablet 10 mg PO TID PRN (Reason: Muscle Spasm) Qty: 20 0RF lidocaine [Lidoderm] 5 % adhesive patch,medicated 1 patch topical DAILY Qty: 15 0RF Rx Instructions: leave on most painful area for up to 12 hrs No Action Trulicity 0.75 mg/0.5 mL pen injector 0.75 mg SUBCUT QWEEK hydrocodone-acetaminophen 5-325 mg tablet 1 tab PO Q6H PRN (Reason: pain) 3 Days Qty: 12 0RF Primary Care Provider: Care Physician,No Primary Referrals: Krista Brumfield [Non-Staff] - As soon as possible Care Physician,No Primary [Primary Care Provider] - Disposition Disposition: Home, Self Care Discharge Date/Time: 12/12/23 04:59
[2023-12-12] MEDS: Lidocaine 5% Patch 1 PATCH TOPICAL (04:36)
[2023-12-12 04:39] VITALS: BP 111/78; PULSE 85; RESP 16; TEMP 36.7; O2SAT 94
== END 2023-12-12 04:59 | disposition home or self-care (01) ==
PROVIDERS: Emergency Provider Emergency Medicine; Visit Provider Emergency Medicine
DX: S39.012A Strain of muscle, fascia and tendon of lower back, initial encounter (principal); E11.9 Type 2 diabetes mellitus without complications; F17.210 Nicotine dependence, cigarettes, uncomplicated; X58.XXXA Exposure to other specified factors, initial encounter
CPT/HCPCS: 99283

== ENCOUNTER 2023-12-23 05:19 | Emergency (ER) | payer MEDICAID, SELFPAY ==
[2023-12-23 05:21] VITALS: BP 132/99; TEMP 36.6; BMI 42.4
--- NOTE | 2023-12-23 05:32 | EX.ED.UPPERE ---
HPI History of Present Illness Chief Complaint: Upper Extremity Injury Detail of Chief Complaint: Right shoulder pain and burning sensation right hand Informant: patient Occured/Mechanism Comment: There is no history of trauma Onset/Context/Timing Onset: Days and Weeks Context: Sudden Onset Timing: Continuous and Waxes and wanes Quality of Pain: Dull (Right shoulder), Aching (Right shoulder) and Burning (Right hand) Current Severity: Mild Maximum Severity: Moderate Worsened by: Use of right upper extremity Relieved by: Nothing Associated Symptoms Associated Symptoms: Positive for Loss of Funtion; Negative for Parasthesia or Weakness Narrative Narrative: Patient is a 33-year-old [id number] male presents with atraumatic right shoulder pain that described as dull aching discomfort and burning sensation of his left hand. He does have history of carpal tunnel. All of his fingers however have a burning sensation. He is diabetic. He is on Trulicity. He denies fever, chills night sweats. He denies history of gout or pseudogout. He has normal renal function. There is a remote history of peptic disease. He denies black or maroon-colored stool. Patient is not well-groomed and close are not clean. Patient denies fever, chills night sweats. Movement of his right hand and right shoulder causes increased pain. Patient denies prior history of injury to the right shoulder or right hand. Prior similar symptoms: Yes Recent Illness/Hospitalization: No [facility] Medical History Anxiety Bipolar disorder Depression Diabetes Migraines Smoker Substance abuse TTP (thrombotic thrombocytopenic purpura) Home Medications dulaglutide 0.75 mg/0.5 mL subcutaneous pen injector (Trulicity) 0.75 mg subcut QWEEK 01/06/22 [History Last Taken Unknown] hydrocodone-acetaminophen 5-325mg 5mg-325mg 1 tab PO Q6H PRN pain 3 days #12 tabs 11/30/23 [Rx Last Taken Unknown] cyclobenzaprine 10 mg tablet 10 mg PO TID PRN Muscle Spasm #20 TABLETS 12/12/23 [Rx Last Taken Unknown] lidocaine 5 % topical patch (Lidoderm) 1 patch topical DAILY #15 ea 12/12/23 [Rx Last Taken Unknown] gabapentin 300 mg capsule 300 mg PO BID #90 caps 12/23/23 [Rx Last Taken Unknown] naproxen 500 mg tablet 500 mg PO BID #14 tabs 12/23/23 [Rx Last Taken Unknown] Allergy/AdvReac Type Severity Reaction Status Date / Time adhesive Allergy Rash Verified 12/01/23 10:36 dicyclomine HCl [From Bentyl] Allergy Hives Verified 12/01/23 10:36 fentanyl Allergy Hives Verified 12/01/23 10:36 Latex, Natural Rubber Allergy Rash Verified 12/01/23 10:36 methadone Allergy Other Verified 12/01/23 10:36 prednisone Allergy Rash Verified 12/01/23 10:36 tramadol HCl [From Ultram] Allergy Hives Verified 12/01/23 10:36 aspirin AdvReac Other Verified 12/01/23 10:36 ketorolac tromethamine AdvReac Upset Verified 12/01/23 10:36 [From Toradol] Stomach Family History Other Diabetes Surgical History H/O eye surgery Social History household members: spouse Smoking Status: Current every day smoker tobacco type: cigarettes substance use type: former substance user ROS ROS ED Constitutional Constitutional ED: Denies chills, fever(s), subjective, sweats or weight loss Eyes Eyes: Denies blurry vision, change in vision or diplopia ENT ENT ED: Denies ear pain or rhinorrhea Cardiovascular Cardiovascular: Denies chest pain, palpitations or racing heartbeat Respiratory/Chest Respiratory/Chest: Denies cough, dyspnea or dyspnea on exertion Gastrointestinal Gastrointestinal: Denies nausea or vomiting Musculoskeletal Musculoskeletal: Reports other Details: Per HPI negative ; Denies back pain, myalgias or neck pain Integumentary Denies rash Neurologic Neurologic: Reports paresthesias RUE (Right hand including thumb and fingers) Psychiatric Psychiatric: Reports anxiety and depression Endocrine Endocrinology: Denies cold intolerance or heat intolerance Hematologic/Lymphatic Hematologic/Lymphatic: Denies easy bleeding or easy bruising EXAM Physical Exam Const Vital Signs: 12/23/23 05:21 Temperature 97.9 F Temperature Source Oral Blood Pressure 132/99 H Blood Pressure Mean 110 Positive well nourished, well developed, obese and unkempt General Appearance ED: unkempt, well developed and NAD; Negative for cyanotic or diaphoretic Nutritional Appearance: obese HEENT Reports moist mucous membranes normocephalic and atraumatic Eyes PERRL and EOMs intact bilaterally Neck full ROM and supple Chest Wall inspection of chest normal and palpation of chest normal Resp normal respiratory effort and clear to auscultation bilaterally Cardio regular rate, regular rhythm, S1 normal heart sound, S2 normal heart sound and no murmurs Back/Spine Cervical Spine: Negative for cervical spine tenderness Thoracic Spine / Upper Back: Negative for thoracic spinal tenderness Extremity normal to inspection and full ROM Extremity Narrative: There is pain ovation over the proximal humerus and glenohumeral joint. There is no fluctuance. There is no erythema or warmth. There is no pain ovation over the AC joint. Axillary, median, radial and ulnar function intact. Patient reports decreased sensation in his fingers and thumb on the right side compared to left. Radial pulses palpable. There is pain to touch. General Extremety ED: Negative for edema or other findings General Extremity: Negative for edema or other findings Neuro oriented x3, CN's II-XII intact bilaterally, no focal motor deficits and No no sensory deficits noted Sensorium / Orientation: alert Psych mental status grossly normal Appearance: unkempt Skin General Skin Exam: Negative for petechiae Lesions: no lesions Rashes: no rashes MDM MDM MDM Narrative Medical decision making narrative: Patient's right hand pain is consistent with neuropathy most likely due to his diabetes. X-ray of the shoulder was obtained to determine if he has evidence of calcific supraspinatus tendinitis versus impingement syndrome versus osteoarthritis. Patient did not inform her that he has been here for the same complaint. Has been here several times after reviewing records. Imaging was performed this year. There is no acute process noted. In light of this we will cancel the x-ray of the right shoulder. Since patient is diabetic and describing the pain as a burning numb sensation in his right hand and digits will treat with gabapentin. History & Record Review Additional record(s) reviewed:: Prior ED visit (Patient had x-rays of the cervical spine which revealed degenerative disc disease. X-ray of the shoulder in October which revealed no acute findings.) Treatment and Re-Evaluation Narrative: Patient was informed at 0558 that the x-ray was canceled since he recently had an x-ray and the was no significant abnormality. Furthermore there is no history of trauma. Patient was discharged with prescription for gabapentin. She did not follow-up with his doctor. Discharge Plan Triage Chief Complaint: Upper Extremity Injury ED Provider: Antonio Montgomery Dx/Rx/DC Orders Clinical Impression: Acute pain of right shoulder, Neuropathy, BMI 40.0-44.9, adult, Diabetes mellitus, new onset Instructions: ED Neuropathy, Peripheral Prescriptions: New naproxen 500 mg tablet 500 mg PO BID Qty: 14 0RF gabapentin 300 mg capsule 300 mg PO BID Qty: 90 0RF Rx Instructions: 1 twice a day for 3 days then 1 3 times a day No Action Trulicity 0.75 mg/0.5 mL pen injector 0.75 mg SUBCUT QWEEK hydrocodone-acetaminophen 5-325 mg tablet 1 tab PO Q6H PRN (Reason: pain) 3 Days Qty: 12 0RF cyclobenzaprine 10 mg tablet 10 mg PO TID PRN (Reason: Muscle Spasm) Qty: 20 0RF lidocaine [Lidoderm] 5 % adhesive patch,medicated 1 patch topical DAILY Qty: 15 0RF Rx Instructions: leave on most painful area for up to 12 hrs Primary Care Provider: Care Physician,No Primary Referrals: Care Physician,No Primary [Primary Care Provider] - Doctor,Your [Non-Staff] - 5-7 Days Activity Restrictions/Additional Instructions: You to follow-up with your doctor. The name of your doctor is located on your insurance card issued to you by care source. Disposition Disposition: Home, Self Care
[2023-12-23] MEDS: Naproxen 250 MG Tablet 500 MG PO (05:36)
--- OUTSIDE RECORDS SUMMARY | 2023-12-23 05:37 | XMS RPT_ITS | CCD ---
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 Name Role Phone María Elena BOWEN Lonnie Primary Care Provider BOGANTZ, LONNIE Primary Care Unavailable BOGANTZ, LONNIE Referring Unavailable ABDIRAHMAN WHITFIELD Attending Unavailable SONIDO DYER Attending Unavailable BOGANTZ, LONNIE Primary Care Unavailable BOGANTZ, LONNIE Referring Unavailable KATRINA, SHIRA K Referring Unavailable KATRINA, SHIRA K Attending Unavailable BOGANTZ, LONNIE Primary [...] Primary Care Unavailable BOGANTZ, LONNIE Referring Unavailable CATALABDIRAHMAN BRUNO Attending Unavailable ABDIRAHMAN WHITFIELD R Attending Unavailable BOGANTZ, LONNIE Primary Care Unavailable BOGANTZ, LONNIE Referring Unavailable SELF, SELF Referring Unavailable BOGANTZ, LONNIE Primary Care Unavailable SELF, SELF Referring Unavailable KATRINA, SHIRA K Attending Unavailable BOGANTZ, LONNIE Primary [...] Unavailable PHYSICIAN, NONE Primary Care Physician Unavailab Polo Qureshi Unavailable Polo Castillo Primary Care Provider TOD ARROYO MD Attending Unavail able PHYSICIAN, NONE Primary Care Unavailable CHINYERE KASPER DO Attending Unavailable PHYSICIAN, NONE Primary Care Unavailable Allergies Allergy Classification Reported Allergen(s) Allergy Type Date of Onset Reaction(s) Facility (18 sources) Aluminum aspirin Drug Allergy 9 [facility] (18 sources) Dicyclomine Drug Allergy 0 Rash [facility] (20 sources) fentaNYL; Translations: [fentanyl] Drug Allergy 3 [facility] Latex Propensity to adverse reactions to drug 1 rash [facility] (20 sources) Methadone; Translations: [methadone] Drug Allergy 2 Nausea and Vomiting, Hives, Other [facility] Work Phone: (20 sources) Morphine; Translations: [morphine] Drug Allergy 0 Rash [facility] (19 sources) predniSONE; Translations: [prednisone] Drug Allergy 0 Nausea and Vomiting [facility] (18 sources) Propoxyphene Drug Allergy 1 [facility] (20 sources) traMADol; Translations: [tramadol] Drug Allergy 5 Dyspnea, Hives, Shortness of breath, Dyspnea (finding) [facility] (18 sources) Aspirin Buffered Propensity to adverse reactions to drug 1 Swelling [facility] (13 sources) *Adhesive Tape Propensity to adverse reactions 9 Rash [facility] (4 sources) Adhesive Tape Drug Allergy 2 Rash [facility] (2 sources) Ketorolac Allergy to substance 2 [facility] (3 sources) Prednisone Allergy to substance 0 Nausea And Vomiting, Rash [facility] (2 sources) Fentanyl And Related Drug Intolerance 6 Hives, Nausea Only [facility] (1 source) ALLERGIES NOT ON FILE; Translations: [ALLERGIES NOT ON FILE] Propensity to adverse reactions (disorder) [facility] 2 Repository (2 sources) Aspirin; Translations: [aspirin] Drug Allergy thins blood [facility] (2 sources) cyclobenzaprine; Translations: [cyclobenzaprine ] Drug Allergy [facility] (2 sources) Dicyclomine; Translations: [dicyclomine] Drug Allergy rash [facility] (2 sources) GRAPEFRUIT EXTRACT Drug Allergy [facility] (2 sources) Ketorolac; Translations: [ketorolac] Drug Allergy Dyspnea (finding) [facility] (2 sources) Naproxen; Translations: [naproxen] Drug Allergy [facility] (1 source) gadobutrol Drug Allergy 3 Itching, Nausea and Vomiting [facility] Medications Current Medications Medication Drug Class(es) [...] hours as needed for pain HYDROcodone-aceta minophen (Vallecitos) 5-325 MG tablet Indications: Gluteal abscess Take [...] malignant neoplasm] Episodic Other aftercare (2 sources) [facility] (current) use of insulin; Translations: [[facility] (current) use of insulin] Onset: 02-13-2023 Episodic [...] Vital Sign Value Performing Clinician Faci lity 11-27-2023 04:30-0500 Body temperature 97.7 [degF] TOD ARROYO MD [facility] 11-27-2023 04:30-0500 Diastolic Blood Pressure Non-Invasive 80 mm[Hg] TOD ARROYO MD [facility] 11-27-2023 04:30-0500 Heart rate 99 /min TOD ARROYO MD [facility] 11-27-2023 04:30-0500 Respiratory rate 16 /min TOD ARROYO MD [facility] 11-27-2023 04:30-0500 Systolic Blood Pressure Non-Invasive 135 mm[Hg] TOD ARROYO MD [facility] 11-03-2023 09:44-0500 Body height 175.3 cm NIDAL CHOUJAA DO [facility] 11-03-2023 09:44-0500 Body temperature 97.52 [degF] NIDAL CHOUJAA DO [facility] 11-03-2023 09:44-0500 Body weight 127.3 kg NIDAL CHOUJAA DO [facility] 11-03-2023 09:44-0500 Diastolic Blood Pressure Non-Invasive 91 mm[Hg] NIDAL CHOUJAA DO [facility] 11-03-2023 09:44-0500 Heart rate 83 /min NIDAL CHOUJAA DO [facility] 11-03-2023 09:44-0500 Respiratory rate 18 /min NIDAL CHOUJAA DO [facility] 11-03-2023 09:44-0500 Systolic Blood Pressure Non-Invasive 143 mm[Hg] NIDAL DUKEA DO [facility] 09-16-2023 14:18-0500 Body height 175.3 cm Ok Barbozala DO Work Phone: [facility] [employer] 09-16-2023 14:18-0500 Body mass index (BMI) [Ratio] 42.83 kg/m2 kO Ayalakola DO Work Phone: [facility] [employer] 09-16-2023 14:18-0500 Body temperature 98.1 [degF] Ok Ayalakola DO Work Phone: [facility] [employer] 09-16-2023 14:18-0500 Body weight 131.54 kg Ok Ayalakola DO Work Phone: [facility] [employer] 09-16-2023 14:18-0500 Diastolic blood pressure 108 mm[Hg] Ok Ayalakola DO Work Phone: [facility] [employer] 09-16-2023 14:18-0500 Heart rate 99 /min Ok Lucykola DO Work Phone: [facility] [employer] 09-16-2023 14:18-0500 Respiratory rate 17 /min Ok Barbozala DO Work Phone: [facility] [employer] 09-16-2023 14:18-0500 SaO2% (BldA) [Mass fraction] 97 % Ok Ayalakola DO Work Phone: [facility] [employer] 09-16-2023 14:18-0500 Systolic blood pressure 163 mm[Hg] Ok Sunshinerakola DO Work Phone: [facility] [employer] 02-13-2023 09:57-0400 Body mass index (BMI) [Ratio] 40.87 kg/m2 Sonido Dyer [facility] Work Phone: [facility] 02-13-2023 09:57-0400 Body weight 134.63 kg Sonido Dyer [facility] Work Phone: [facility] 02-13-2023 09:57-0400 Diastolic blood pressure 88 mm[Hg] Sonido Dyer [facility] Work Phone: [facility] 02-13-2023 09:57-0400 Heart rate 88 /min Sonido Dyer [facility] Work Phone: [facility] 02-13-2023 09:57-0400 Systolic blood pressure 134 mm[Hg] Sonido Dyer [facility] Work Phone: [facility] 10-27-2022 13:07-0500 Body height 181.5 cm Lonniedamon Ring SPOT BILLING CLERK-GYROSCOPIC INSTRUMENT MECHANIC Work Phone: [facility] 10-27-2022 13:07-0500 Body mass index (BMI) [Ratio] 39.66 kg/m2 Lonnie Bogantz SPOT BILLING CLERK-GYROSCOPIC INSTRUMENT MECHANIC Work Phone: [facility] 10-27-2022 13:07-0500 Body temperature 98.4 [degF] Lonnie Bogantz SPOT BILLING CLERK-GYROSCOPIC INSTRUMENT MECHANIC Work Phone: [facility] 10-27-2022 13:07-0500 Body weight 130.64 kg Lonnie Bogantz SPOT BILLING CLERK-GYROSCOPIC INSTRUMENT MECHANIC Work Phone: [facility] 10-27-2022 13:07-0500 Diastolic blood pressure 74 mm[Hg] Lonnie Giovannyz SPOT BILLING CLERK-GYROSCOPIC INSTRUMENT MECHANIC Work Phone: [facility] 10-27-2022 13:07-0500 Heart rate 106 /min Lonnie Bogantz SPOT BILLING CLERK-GYROSCOPIC INSTRUMENT MECHANIC Work Phone: [facility] 10-27-2022 13:07-0500 Respiratory rate 18 /min Lonnie Bogantz SPOT BILLING CLERK-GYROSCOPIC INSTRUMENT MECHANIC Work Phone: [facility] 10-27-2022 13:07-0500 SaO2% (BldA) [Mass fraction] 95 % Lonnie Ring APRN-GYROSCOPIC INSTRUMENT MECHANIC Work Phone: [facility] 10-27-2022 13:07-0500 Systolic blood pressure 122 mm[Hg] Lonnie Ring APRN-GYROSCOPIC INSTRUMENT MECHANIC Work Phone: [facility] 10-27-2022 09:01-0500 Body height 175.3 cm Abdirahman Whitfield MD Work Phone: [facility] 10-27-2022 09:01-0500 Body mass index (BMI) [Ratio] 42.65 kg/m2 Abdirahman Whitfield MD Work Phone: [facility] 10-27-2022 09:01-0500 Body temperature 98.49 [degF] Abdirahman Whitfield MD Work Phone: [facility] 10-27-2022 09:01-0500 Body weight 131 kg Abdirahman Whitfield MD Work Phone: [facility] 10-27-2022 09:01-0500 Diastolic blood pressure 79 mm[Hg] Abdirahman Whitfield MD Work Phone: [facility] 10-27-2022 09:01-0500 Heart rate 115 /min Abdirahman Whitfield MD Work Phone: [facility] 10-27-2022 09:01-0500 Respiratory rate 16 /min Abdirahman Whitfield MD Work Phone: [facility] 10-27-2022 09:01-0500 SaO2% (BldA) [Mass fraction] 96 % Abdirahman Whitfield MD Work Phone: [facility] 10-27-2022 09:01-0500 Systolic blood pressure 124 mm[Hg] Abdirahman Whitfield MD Work Phone: [facility] 07-21-2022 10:47-0400 Diastolic blood pressure 86 mm[Hg] Abdirahman Whitfield MD Work Phone: [facility] 07-21-2022 10:47-0400 Heart rate 89 /min Abdirahman Whitfield MD Work Phone: [facility] 07-21-2022 10:47-0400 Systolic blood pressure 126 mm[Hg] Abdirahman Whitfield MD Work Phone: [facility] 07-21-2022 09:48-0400 Body height 175.3 cm Abdirahman Whitfield MD Work Phone: [facility] 07-21-2022 09:48-0400 Body mass index (BMI) [Ratio] 43.56 kg/m2 Abdirahman Whitfield MD Work Phone: [facility] 07-21-2022 09:48-0400 Body temperature 97.81 [degF] Abdirahman Whitfield MD Work Phone: [facility] 07-21-2022 09:48-0400 Body weight 133.81 kg Abdirahman Whitfield MD Work Phone: [facility] 07-21-2022 09:48-0400 Respiratory rate 18 /min Abdirahman Whitfield MD Work Phone: [facility] 07-21-2022 09:48-0400 SaO2% (BldA) [Mass fraction] 96 % Abdirahman Whitfield MD Work Phone: [facility] 05-13-2022 08:59-0400 Body height 175.3 cm Fran Jarrett MD Work Phone: [facility] 05-13-2022 08:59-0400 Body mass index (BMI) [Ratio] 42.83 kg/m2 Fran Jarrett MD Work Phone: [facility] 05-13-2022 08:59-0400 Body temperature 96.91 [degF] Fran Jarrett MD Work Phone: [facility] 05-13-2022 08:59-0400 Body weight 131.54 kg Fran Jarrett MD Work Phone: [facility] 05-13-2022 08:59-0400 Heart rate 80 /min Fran Jarrett MD Work Phone: [facility] 05-13-2022 08:59-0400 SaO2% (BldA) [Mass fraction] 97 % Fran Jarrett MD Work Phone: [facility] 04-14-2022 08:36-0400 Body height 175.3 cm Abdirahman Whitfield MD Work Phone: [facility] 04-14-2022 08:36-0400 Body temperature 97.81 [degF] Abdirahman Whitfield MD Work Phone: [facility] 04-14-2022 08:36-0400 Diastolic blood pressure 83 mm[Hg] Abdirahman Whitfield MD Work Phone: [facility] 04-14-2022 08:36-0400 Heart rate 87 /min Abdirahman Whitfield MD Work Phone: [facility] 04-14-2022 08:36-0400 Respiratory rate 18 /min Abdirahman Whitfield MD Work Phone: [facility] 04-14-2022 08:36-0400 SaO2% (BldA) [Mass fraction] 96 % Abdirahman Whitfield MD Work Phone: [facility] 04-14-2022 08:36-0400 Systolic blood pressure 111 mm[Hg] Abdirahman Whitfield MD Work Phone: [facility] 03-30-2022 13:16-0400 Body height 175.3 cm Lonnie Ring SPOT BILLING CLERK-GYROSCOPIC INSTRUMENT MECHANIC Work Phone: 2(815)967-[address]449 [address] 03-30-2022 13:16-0400 Body mass index (BMI) [Ratio] 42.77 kg/m2 Lonnie Lindaantz SPOT BILLING CLERK-GYROSCOPIC INSTRUMENT MECHANIC Work Phone: 5(341)[phone] [place] [address] 03-30-2022 13:16-0400 Body temperature 97.5 [degF] Lonnie Ring SPOT BILLING CLERK-GYROSCOPIC INSTRUMENT MECHANIC Work Phone: 0(950)[phone] [place] [address] 03-30-2022 13:16-0400 Body weight 131.36 kg Lonnie Ring SPOT BILLING CLERK-GYROSCOPIC INSTRUMENT MECHANIC Work Phone: 3(461)[phone] [place] [address] 03-30-2022 13:16-0400 Diastolic blood pressure 80 mm[Hg] Lonnie Giovannyz SPOT BILLING CLERK-GYROSCOPIC INSTRUMENT MECHANIC Work Phone: 7(260)[phone] [place] [address] 03-30-2022 13:16-0400 Heart rate 110 /min Lonnie Ring SPOT BILLING CLERK-GYROSCOPIC INSTRUMENT MECHANIC Work Phone: 5(138)[phone] [place] [address] 03-30-2022 13:16-0400 Respiratory rate 18 /min Lonnie Ring SPOT BILLING CLERK-GYROSCOPIC INSTRUMENT MECHANIC Work Phone: 8(516)[phone] [place] [address] 03-30-2022 13:16-0400 SaO2% (BldA) [Mass fraction] 98 % Lonnie Ring SPOT BILLING CLERK-GYROSCOPIC INSTRUMENT MECHANIC Work Phone: 3(519)[phone] [place] [address] 03-30-2022 13:16-0400 Systolic blood pressure 120 mm[Hg] Lonnie Giovannyz SPOT BILLING CLERK-GYROSCOPIC INSTRUMENT MECHANIC Work Phone: 1(241)544-964149 [address] 01-31-2022 15:07-0400 Body height 175.3 cm Lonnie Baltazarz SPOT BILLING CLERK-GYROSCOPIC INSTRUMENT MECHANIC Work Phone: 6(308)[phone] [place] [address] 01-31-2022 15:07-0400 Body mass index (BMI) [Ratio] 44.75 kg/m2 Lonnie Ring SPOT BILLING CLERK-GYROSCOPIC INSTRUMENT MECHANIC Work Phone: [facility] 01-31-2022 15:07-0400 Body temperature 98.29 [degF] Lonnie Ring SPOT BILLING CLERK-GYROSCOPIC INSTRUMENT MECHANIC Work Phone: [facility] 01-31-2022 15:07-0400 Body weight 137.44 kg Lonnie Ring SPOT BILLING CLERK-GYROSCOPIC INSTRUMENT MECHANIC Work Phone: [facility] 01-31-2022 15:07-0400 Diastolic blood pressure 74 mm[Hg] Lonnie Ring SPOT BILLING CLERK-GYROSCOPIC INSTRUMENT MECHANIC Work Phone: [facility] 01-31-2022 15:07-0400 Heart rate 72 /min Lonnie Ring SPOT BILLING CLERK-GYROSCOPIC INSTRUMENT MECHANIC Work Phone: [facility] 01-31-2022 15:07-0400 SaO2% (BldA) [Mass fraction] 99 % Lonnie Ring SPOT BILLING CLERK-GYROSCOPIC INSTRUMENT MECHANIC Work Phone: [facility] 01-31-2022 15:07-0400 Systolic blood pressure 106 mm[Hg] Lonnie Ring SPOT BILLING CLERK-GYROSCOPIC INSTRUMENT MECHANIC Work Phone: [facility] 01-27-2022 08:11-0400 Body height 175.3 cm Fran Jarrett MD Work Phone: [facility] 01-27-2022 08:11-0400 Body mass index (BMI) [Ratio] 44.01 kg/m2 Fran Jarrett MD Work Phone: [facility] 01-27-2022 08:11-0400 Body temperature 97 [degF] Fran Jarrett MD Work Phone: [facility] 01-27-2022 08:11-0400 Body weight 135.17 kg Fran Jarrett MD Work Phone: [facility] Encounters Encounter Date Encounter Type Care Provider Facility Start: 11-27-2023 End: 11-27-2023 Emergency department patient visit TOD ARROYO MD Facility:B Start: 11-27-2023 End: 11-27-2023 Emergency department patient visit TOD ARROYO MD [facility] Start: 11-16-2023 End: 11-16-2023 Office outpatient visit 15 minutes Abdirahman Whitfield MD Work Phone: [facility] Procedures Date Procedure Procedure Detail Performing Clinician Start: 11-16-2023 [id number] ACTIVITY AN D IGG AB W/REFLEX TO [...] Phone: Start: 02-13-2023 Hemoglobin glycosylated a1c Lonnie María Elena OROSCON-GYROSCOPIC INSTRUMENT MECHANIC Work Phone: Start: 10-27-2022 CBC AND ELECTRONIC [...] Start: 07-21-2022 Hemoglobin glycosylated a1c Lonnie Ring SPOT BILLING CLERK-GYROSCOPIC INSTRUMENT MECHANIC Work Phone: Start: 07-21-2022 Lipid panel Lonnie Adriel earnest SPOT BILLING CLERK-GYROSCOPIC INSTRUMENT MECHANIC Work Phone: Start: 04-14-2022 CBC AND ELECTRONIC DIFF Abdirahman Whitfield MD Work Phone: Start: 04-14-2022 Complete blood count with white cell differential, automated Abdirahman Whitfield MD Work Phone: Start: 04-14-2022 Lactate dehydrogenase ldh Abdirahman Whitfield MD Work Phone: Start: 03-30-2022 Hemoglobin glycosylated a1c Lonnie Mckeoncataescobar SPOT BILLING CLERK-GYROSCOPIC INSTRUMENT MECHANIC Work Phone: Start: 02-08-2022 Radex foot complete minimum 3 views Serge Murdock DPM Work Phone: Start: 01-27-2022 Radex spine lumbosac ral minimum 4 views Fran Jarrett MD Work Phone: Cardiac tamponade (disorder) [employer] DO Ophthalmic surgery (qualifier value) NIDAL CHOUJAA DO Plan of Treatment Date Care Activity Detail Author Start: 2041 RSV Immunization aged 60 or older (1 - 1-dose 60+ series) RSV Immunization aged 60 or older (1 - 1-dose 60+ series) [employer] Start: 10-27-2032 Tetanus vaccination TETANUS [facility] Start: 2031 Zoster Vaccines (1 of 2) Zoster Vaccines (1 of 2) [employer] Start: 02-15-2024 End: 02-15-2024 Patient encounter procedure 02/15/2024 8:40 AM EDT Office Visit [facility] [address] [place] [id number] Edilia Robles, SPOT BILLING CLERK-GYROSCOPIC INSTRUMENT MECHANIC [address] [place] [address] [facility] Start: 11-16-2023 End: 11-15-2024 BLOOD, RESEARCH BLOOD, RESEARCH Lab Routine TTP (thrombotic thrombocytopenic purpura) Expected: 11/16/2023, Expires: 11/15/2024 [facility] Immunizations Immunization Date Immunization Notes Care Provider Fa cility 10-27-2022 diphtheria, tetanus toxoids and acellular pertussis vaccine, unspecified formulation Lonnie Ring SPOT BILLING CLERK-GYROSCOPIC INSTRUMENT MECHANIC Work Phone: [facility] 10-27-2022 tetanus toxoid, redu sunny diphtheria toxoid, and acellular pertussis vaccine, adsorbed; Translations: [TDAP VACCINE >10YO 0.5ML IM] Abdirahman Whitfield MD Work Phone: [facility] 09-29-2022 influenza virus vaccine, unspecified formulation Abdirahman Whitfield MD Work Phone: [facility] 09-28-2021 influenza virus vaccine, unspecified formulation Abdirahman Whitfield MD Work Phone: [facility] 04-29-2021 COVID-19 vaccine, AD 26, Karla 0.5 ML Fran Jarrett MD Work Phone: [facility] 01-08-2016 tetanus toxoid, redu sunny diphtheria toxoid, and acellular pertussis vaccine, adsorbed CHINYERE KASPER DO [facility] Payers Date Payer Category Payer Medicaid [employer] ODM [id number] 2022-Present [phone] [address] [place] [address] Medicaid HMO [id number] 2022 Unknown [id number] 2022 Unknown [id number] 2015 Unknown [id number]. [id number] 2015 Unknown [id number] 1981 Unknown [id number] 2.840.1.110558.3.579.2.594 1981 Unknown [id number] 2.840.1.199138.3.579.2.594 1981 Unknown [id number] 2.840.1.598709.3.579.2.594 1981 Unknown [id number] 2.840.1.506198.3.579.2.594 1981 Unknown [id number] 2.840.1.619474.3.579.2.594 1981 Unknown [id number] 2.840.1.387666.3.579.2.594 1981 Unknown [id number] 2.840.1.026282.3.579.2.594 1981 Unknown [id number] 2.840.1.606846.3.579.2.594 1981 Unknown [id number] 2.840.1.316969.3.579.2.594 1981 Unknown [id number] 2.840.1.656896.3.579.2.594 1981 Unknown [id number] 2.840.1.726558.3.579.2.594 1981 Unknown [id number] 2.16840.1.544036.3.579.2.594 1981 Unknown [id number] 2.840.1.718808.3.579.2.594 1981 Unknown [id number] 2.840.1.040562.3.579.2.594 1981 Unknown [id number] 2.16.840.1.378209.3.579.2.594 1981 Unknown [id number] 2.16.840.1.908803.3.579.2.594 1981 Unknown [id number] 2.16.840.1.030154.3.579.2.594 1981 Unknown [id number] 2.16.840.1.543072.3.579.2.594 1981 Unknown [id number] 2.16.840.1.731144.3.579.2.594 1981 Unknown [id number] 2.16.840.1.296802.3.579.2.594 1981 Unknown [id number] 2.16840.1.111125.3.579.2.594 1981 Unknown [id number] 2.16840.1.860298.3.579.2.594 1981 Unknown [id number] 2.16840.1.791094.3.579.2.1243 1981 Unknown [id number] 2.16840.1.903661.3.579.2.627 1981 Unknown [id number] 2.16840.1.373813.3.579.2.627 Social History Date Type Detail Facility Start: 02-12-1994 End: 10-27-2022 Tobacco smoking status INIS Smokes tobacco daily [facility] Start: 02-12-1994 History of tobacco use Cigarette Smoker [facility] Start: 09-22-2021 End: 06-29-2023 Cigarettes smoked current (pack per day) - Reported 1 [facility] Start: 09-22-2021 End: 10-27-2022 Tobacco use and exposure Former smokeless tobacco user [facility] Start: 01-27-2022 End: 06-08-2023 Alcohol intake Current non-drinker of alcohol (finding) [facility] Start: 09-22-2021 End: 09-16-2022 Tobacco Comment Keep's me calm in a stressful situation [facility] Start: 1980 Sex Assigned At Not on file [facility] Start: 01-15-2022 End: 10-27-2022 Exposure to SARS-CoV-2 (event) Unable to assess [facility] Start: 09-26-2022 End: 10-06-2022 Exposure to SARS-CoV-2 (event) Not sure [facility] Start: 06-29-2023 End: 09-16-2023 Alcohol Use Disorder Identification Test - Consumption [AUDIT-C] [facility] How often to you hav e a drink containing alcohol? Never [facility] How many standard dr inks containing alcohol do you have on a typical day? Patient does not drink [facility] Sex Assigned At Sex [facility] Start: 08-24-2017 Gender identity Identifies as male gender (finding) [facility] Start: 01-22-2019 Sexual orientation Heterosexual (finding) [facility] Medical Equipment Procedure Code Equipment Code Equipment Origin al Text Equipment Identifier Dates Cath Dial Hemosp lit 19cm [id number] Start: 10-26-2012 Cath Dial Hemosp lit 19cm [id number] Start: 11-02-2012 Use new needle w ith each insulin injection. [id number] Start: 10-20-2021 Use new needle w ith each insulin injection. [id number] Start: 05-26-2022 Goals Date Patient Goal Desired Activity /State Functional Status Date Assessment Result Facility 11-27-2023 Functional Status ID band on, Allergy Band on, Call device within reach, Bed in low position, Wheels locked, Upper/Half-Length side-rails up, personal items within reach, Bedside Cart Locked [facility] 11-03-2023 Functional Status ID band on, Call device within reach, Bed in low position, Wheels locked, Upper/Half-Length side-rails up [facility] Mental Status Date Assessment Result Facility 11-27-2023 Mental Status Oriented x 4 [facility] 11-03-2023 Mental Status Oriented x 4 [facility] Clinical Notes 01-27-2022 to 11-27-2023 Danya Glass DO - 11/16/2023 8:00 AM Rocio Chou RN - 11/16/2023 8:00 AM Connie Roland RN - 09/16/2023 3:55 PM Connie Roland RN - 09/16/2023 3:55 PM [facility] Instructions Note Date & Type Note Facility [...] bent back when typing. You may use [id number] pain medicine to treat pain and inflammation, [...] Your whole arm becomes swollen or weak [id number] [employer] [address] [place] [address]. All rights reserved. This information is not intended as a substitute for professional medical care. Always follow your healthcare professional's instructions. Follow Up Care 11/27/2023 04:25:18 With:DO MONIQUE OLVERA DO Address: [address] [place] [phone] When:2-4 days [facility] 11-27-2023 Note Discharge Instructions Thank you for allowing [facility] to assist you with your healthcare needs. [...] OLVERA DO When Within 2-4 days Where: [address] [place] [phone] Allergies Bentyl (rash) Deltasone (prednisone) (swelling) [...] bent back when typing. You may use jone-glm-rqscxom pain medicine to treat pain and inflammation, [...] Your whole arm becomes swollen or weak [id number] [employer] [address] [place] [address]. All rights reserved. This information is not intended as a substitute for professional medical care. Always follow your healthcare professional's instructions. Additional Information VACCINATE! IT SAVES LIVES! Members of the community who have not yet received the COVID-19 vaccine and would like to receive it can visit one of [facility] vaccine clinics. There are many vaccine clinic locations within the [facility]. For locations and available times, please visit [email or web address] It is important to note that some COVID mobile vaccine clinics are held outdoors and may be canceled in rainy or stormy conditions. To learn more about pediatric vaccinations (ages 5-11), we invite you to visit the [facility] webpage. https://www.[email or web address].org/p ages/3990-Yisyi-Dnfqbvbmopn-Freq lybqpz-Qrbzu-Jomedsilb.html To learn more about the COVID-19 vaccine, we invite you to visit the CDC website for a list of frequently asked questions. https://www.cdc.gov/coronavirus/ 2019-ncov/vaccines/faq.html [facility] Patient Portal Access Instructions: Stay connected with your healthcare team and access your personal medical information anytime with the [facility] Patient Portal. If you would like a full copy of your medical records please contact the [facility] Medical Records Department Monday through Monday between 8a.m. and 4:30p.m. Please follow the directions below to access the portal: 1.Access the email account you provided upon registration to the [facility].2.Look for an invitation email from [facility].3.Open the email and access the invitation link: Accept Invitation to [employer]4.Fill in the required ayon to create your account. Sign into [email or web address] with your username and password that you [...] you will allow to register on the [employer] Patient Portal for access to your information. You can also access the [employer] Patient Portal on the T[employer]ing[employer]. Simply click on Health Records under Health Data and then click on the Foodlve logo. HOW TO SAFELY DISPOSE OF PRESCRIPTION [...] Call your local pharmacy or go to [email or web address] to find one close to you.3.Make use of household items: Use cat litter or old coffee grounds to dispose medications if other options are not available. Mix your drugs with these household products, seal them in an airtight container and throw it into the garbage. Call [facility]: [phone] to be sure your drugs can be [...] aware that I should contact my doctor. Patient/Body Fitter Signature: Date/Time: Relationship to Patient: Witness Name/Signature: Date/Time: [facility] 11-16-2023 History of Presen t illness Narrative CHIEF COMPLAINT Chief Complaint Patient presents with Follow-up HISTORY OF PRESENT ILLNESS Jairo Moreira Ron Sanchez is a 43 y.o. male with a [...] taking: Reported on 06/29/2023) Continuous Blood Gluc Steward/Stewardess [employer] Dining Car (FreeStyle Roxi 14 Day [place]) Device Use to check blood sugar using the Freestyle Roxi sensors Continuous Blood Gluc Sensor (FreeStyle Roxi 14 Day Sensor) Misc Use to check blood sugars using the Freestyle Roxi [place]. Change sensor every 14 days. CUSTOM MEDICATION [...] and is negative except as noted in [place]. PHYSICAL EXAM There were no vitals filed [...] LD Total 147 100 - 190 U/L [id number] IGG AB Result Value Ref Range LYBWAP59 IgG Antibody 18.1 (H) <=12.0 U/mL BHNHVS79 ACTIVITY Result Value Ref Range ECHOIC79 Activity 94 >=40 % RNQUTQ38 Inhibitor Not Indicated CBC AND ELECTRONIC DIFF [...] Auto 2.42 0.83 - 3.57 K/uL Abs [place] Auto 0.82 0.24 - 0.93 K/uL Abs [...] count WNL. We are still awaiting his DHTIPS91 activity to help predict the risk of [...] with him with the results of his FZTAEN84 activity. Regarding ear pain, most likely viral otitis media. Expect pain to improve over the next several days. If pain worsens, patient should follow up with PCP or urgent care. Patient seen with Dr. Whitfield. Danya Glass DO Heme/Onc Fellow, PGY-6 I interviewed and examined Mr Adkins and I agree with the findings and plan as dictated by Dr. Glass. 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 WUNIGK86 activity was normal suggesting a low risk [...] and type of tubes) Clinical Trial Number: [facility] Time specimen obtained:[id number] Color or Research Tube Number of tubes drawn Lavender 3 ml EDTA Lavender 4ml EDTA 4 Lavender 6 ml EDTA Yellow: 8.5 ml ACD glass Green: 6.0 ml Sodium Heparin Red: 6.0 ml Serum Blue: 2.7 ml Na Citrate 4 Gold: 5.0 ml SST PAX-R: Paxgene Red PAX-B: Paxgene Blue Other (please specify): documented in this encounter [facility] 11-03-2023 Hospital Discharg e instructions Patient [...] bent back when typing. You may use uxma-wdc-bheafoh pain medicine to treat pain and inflammation, [...] Your whole arm becomes swollen or weak [phone] [employer] [address] [place] [address], [place] [address]. All rights reserved. This information is not intended as a substitute for professional medical care. Always follow your healthcare professional's instructions. Follow Up Care 11/03/2023 09:38:20 With:HENRY BARAJAS MD Address: [address] [place] [address] [address] [place] [phone] When:2-4 days With:Follow up with primary care provider Address:Unknown When:2-4 days With:Call Physician Referral Address:Unknown When:2-4 days [facility] 11-03-2023 Note Discharge Instructions Thank you for allowing [facility] to assist you with your healthcare needs. [...] MD When Within 2-4 days Where: [address] [place] [phone] Follow Up with Follow up with primary [...] bent back when typing. You may use yyzl-qbz-vhavjes pain medicine to treat pain and inflammation, [...] Your whole arm becomes swollen or weak [phone] [employer] [address] [place] [address]. All rights reserved. This information is not intended as a substitute for professional medical care. Always follow your healthcare professional's instructions. Additional Information VACCINATE! IT SAVES LIVES! Members of the community who have not yet received the COVID-19 vaccine and would like to receive it can visit one of [facility] vaccine clinics. There are many vaccine clinic locations within the [facility]. For locations and available times, please visit [email or web address] [email or web address] It is important to note that some COVID mobile vaccine clinics are held outdoors and may be canceled in rainy or stormy conditions. To learn more about pediatric vaccinations (ages 5-11), we invite you to visit the [facility] webpage. https://www.[email or web address].org/p ages/6920-Hipip-Qyzpvhnhttt-Freq xdrpei-Txzxq-Qoaczkody.html To learn more about the COVID-19 vaccine, we invite you to visit the CDC website for a list of frequently asked questions. https://www.cdc.gov/coronavirus/ 2019-ncov/vaccines/faq.html [facility] Patient Portal Access Instructions: Stay connected with your healthcare team and access your personal medical information anytime with the [facility] Patient Portal. If you would like a full copy of your medical records please contact the [facility] Medical Records Department Monday through Monday between 8a.m. and 4:30p.m. Please follow the directions below to access the portal: 1.Access the email account you provided upon registration to the [facility].2.Look for an invitation email from [facility].3.Open the email and access the invitation link: Accept Invitation to [employer]4.Fill in the required ayon to create your account. Sign into [email or web address] with your username and password that you [...] you will allow to register on the [employer] Patient Portal for access to your information. You can also access the [employer] Patient Portal on the TrendingGames. Simply click on Health Records under Health Data and then click on the Foodlve logo. HOW TO SAFELY DISPOSE OF PRESCRIPTION [...] Call your local pharmacy or go to [email or web address] to find one close to you.3.Make use of household items: Use cat litter or old coffee grounds to dispose medications if other options are not available. Mix your drugs with these household products, seal them in an airtight container and throw it into the garbage. Call [facility]: [phone] to be sure your drugs can be [...] aware that I should contact my doctor. Patient/Body Fitter Signature: Date/Time: Relationship to Patient: Witness Name/Signature: Date/Time: [facility] 09-16-2023 Emergency department Note Discharge instructions, follow up care, and pain management discussed with patient. All questions answered, there are no further questions at this time. Patient ambulated off the unit independently at discharge. Nallely Roland RN 09/16/23 1556 [facility] 09-16-2023 Emergency department Note Discharge instructions, follow up care, and pain management discussed with patient. All questions answered, there are no further questions at this time. Patient ambulated off the unit independently at discharge. Nallely Roland RN 09/16/23 1551 Associated Order(s): Incision and Drainage EMERGENCY DEPARTMENT [...] 9 ) Medications lidocaine-EPINEPHrine (Xylocaine W/EPI) 1 %-1:975474 injection 10 mL (has no administration in [...] infection Alternatives discussed: Delayed treatment and referral [place] protocol: Patient identity confirmed: Verbally with patient [...] 03:48:50 PM PATIENT REFERRED TO: Izabela Turner [address] [place] [address] Go in 3 days For wound re-check DISCHARGE MEDICATIONS: Discharge Medication List as of 09/16/2023 3:52 PM START taking these medications Details HYDROcodone-acetaminophen (Vallecitos) 5-325 MG tablet Take 1 tablet by [...] signed) Emergency Medicine Provider Ok Rai DO 09/16/232 Patient ambulatory to room 15 presenting with [...] light in reach. documented in this encounter [facility] 09-16-2023 Hospital Discharg e instructions Ok Rai DO - 09/16/2023 3:49 PM EST Keep taking the antibiotics you are prescribed at the other ER. Doxycycline is appropriate coverage for this type of infection. Please keep the wound clean and dry. The following attachments cannot be sent through Care Everywhere.Abscess Drainage, Percutaneous Discharge Instructions (Romanian)documented in this encounter [facility] 09-16-2023 Emergency department Triage note [...] to change into. Call light in reach. [facility] 09-16-2023 Physician Emergency department Note Associated [...] 9 ) Medications lidocaine-EPINEPHrine (Xylocaine W/EPI) 1 %-1:797379 injection 10 mL (has no administration in [...] infection Alternatives discussed: Delayed treatment and referral [place] protocol: Patient identity confirmed: Verbally with patient [...] 03:48:50 PM PATIENT REFERRED TO: Izabela Turner [address] [place] [address] Go in 3 days For wound re-check DISCHARGE MEDICATIONS: Discharge Medication List as of 09/16/2023 3:52 PM START taking these medications Details HYDROcodone-acetaminophen (Vallecitos) 5-325 MG tablet Take 1 tablet by [...] Medicine Provider Ok Rai DO 09/16/23 1712 [facility] 05-01-2023 History of Presen t illness Narrative Images [...] Glucose Readings: Currently monitors blood sugars using [employer]arstyle Roxi w/ Roxi [place] Date Fasting After breakfast Before lunch [...] 157 74 - 68 31 1 Roxi [place] 12/07/21 138 81 6.6 82 16 [...] water, soda 10/12/21 (initial assessment) Seen by dietitian/furniture mechanic: No Breakfast: cereal (rice krispies or honey [...] 6.1 (H) 07/21/2022 HGBA1C 6.3 (H) 03/30/2022 KNM48SL 0.00 06/22/2021 ANTPANCISLAB NEGATIVE 06/20/2021 IA2AB <5.4 [...] renal function: Yes (Most recent eGFR: >90 (1/12/23)). Home glucose readings shows good control over [...] Dyer, PharmD, BCACP, TTS Specialty Practice Pharmacist [facility] Department of Family Medicine The Family [...] for remote monitoring. documented in this encounter [facility] 02-13-2023 Instructions Sonido Dyer RPH - [...] blood pressure reevaluation documented in this encounter [facility] 10-27-2022 History of Presen t illness [...] a week. He is staying at the [facility] and thus he is eating lunch there. He recently got kicked out of the nursing home so he is eating breakfast at religion and is doing fast food for dinner. He is working with a case managers to find housing. He is currently sleeping [...] that he has been living in a nursing home since August after he was evicted from his home. He reports being kicked out of the nursing home for not doing his chore duties and is not able to return for 30 days. He is currently living in his care. He is eating breakfast at a local religion and is eating lunch at the nursing home. For dinner he will typically eat fast food or a cold cut sandwich he buys at the store. He does have foods stamps. He does have a case managers through the nursing home. He is trying to find housing around the [facility]. Right CTS: The patient reports being [...] patient is currently following with psychiatry at [facility]. His current regimen is Seroquel 200 mg, [...] insecurity. -Patient is planning on returning the nursing home his and daughter are staying at in the next couple of weeks. -He is currently working with a case managers through the nursing home to find housing, however will see if [...] is currently following with a psychiatrist in [place]. -He is no longer taking the Lamotrigine [...] reviewing studies, etc. documented in this encounter [facility] 10-27-2022 History of Presen t illness [...] situations as his family is in the nursing home and he has been asked to leave the nursing home for 30 days, but is still engaged with his family, able to see them, doing his best to get reinstated in the nursing home. He also has his social security appeal in process to help regain these benefits that he desperately needs. From TTP standpoint, he is doing well. His CBC is normal and we are awaiting his RBGWMO40 activity. His long-term complication is stable and [...] monitor him every 3 months and his VBPGRD48 activity for the need for recurrent rituximab [...] with him regarding the results of his SMKYBS67 activity when they are available. After visit summary was printed and given to patient. Discharge instructions and follow up appointments reviewed with patient. IHIS Fall prevention education handout included in AVS at time of discharge. All questions answered. Patient verbalized understanding. Patient and family encouraged to call with any additional questions [facility] Instructions Lucy Green RN - 10/27/2022 8:45 AM EST Please feel free to contact the triage line at [phone] with any concerns. Hematology Primary Care Team Dr. Abdirahman Robles, FERMIN Li, [facility] Candice Neves, Research Coordinator Please plan ahead and request all prescription refills at your office visit with your doctor. Allow one week for prescription refills to be processed over the telephone. Please allow 2 weeks for all paperwork to be filled out. [facility] The medical information you will have [...] applied to wood stairs to prevent sliding. [place] a bright colored line on the edge [...] Auto 2.24 0.83 - 3.57 K/uL Abs [place] Auto 0.77 0.24 - 0.93 K/uL Abs Eos Auto 0.52 (H) 0.00 - 0.48 K/uL Abs Baso Auto 0.08 0.00 - 0.09 K/uL documented in this encounter [facility] 09-16-2022 History of Presen t illness [...] daily., Disp: , Rfl: Continuous Blood Gluc Steward/Stewardess [employer] Dining Car (Tackkyle Roxi 14 Day [place]) Device, Use to check blood sugar using the Freestyle Roxi sensors, Disp: 1 Each, Rfl: 0 Continuous Blood Gluc Sensor (FreeStyle Roxi 14 Day Sensor) [facility], Use to check blood sugars using the Freestyle Roxi [place]. Change sensor every 14 days., Disp: [...] NEEDLES 31GX5/16 ) 31G X 8 MM [facility], Use new needle with each insulin injection., [...] sensation is intact when tested with 5.07 [place] Nina monofilament bilaterally. Musculoskeletal: 5/5 muscle strength [...] to this visit. documented in this encounter [facility] 09-16-2022 History of Presen t illness [...] daily., Disp: , Rfl: Continuous Blood Gluc Steward/Stewardess [employer] Dining Car (FreeStyle Roxi 14 Day [place]) Device, Use to check blood sugar using the Freestyle Roxi sensors, Disp: 1 Each, Rfl: 0 Continuous Blood Gluc Sensor (FreeStyle Roxi 14 Day Sensor) Misc, Use to check blood sugars using the Freestyle Roxi [place]. Change sensor every 14 days., Disp: [...] NEEDLES 31GX5/16 ) 31G X 8 MM [facility], Use new needle with each insulin injection., [...] sensation is intact when tested with 5.07 [place] Nina monofilament bilaterally. Musculoskeletal: 5/5 muscle strength [...] to this visit. documented in this encounter [facility] 09-16-2022 Miscellaneous Notes Addended by: SHIRA COTA on: 09/22/2022 08:47 AM Modules accepted: Orders Addended by: SHIRA COTA on: 09/23/2022 07:55 AM Modules accepted: Orders documented in this encounter [facility] 09-16-2022 Note Addended by: SHIRA COTA on: 09/22/2022 08:47 AM Modules accepted: Orders [facility] 09-16-2022 Note Addended by: SHIRA COTA on: 09/23/2022 07:55 AM Modules accepted: Orders [facility] 07-21-2022 History of Presen t illness [...] after he presented to local ED in [place] with diffuse ecchymoses and low platelet count. [...] of Rituxan and PLEX. His TTP and GQVKNP55 activity had been stable, then in December 2020 his NBZXXM42 activity decreased to less than 30% and [...] mouth 3 times daily. Continuous Blood Gluc Steward/Stewardess [employer] Dining Car (FreeStyle Roxi 14 Day [place]) Device Use to check blood sugar using the Freestyle Roxi sensors Continuous Blood Gluc Sensor (FreeStyle Roxi 14 Day Sensor) Misc Use to check blood sugars using the Freestyle Roxi [place]. Change sensor every 14 days. Dulaglutide [...] and is negative except as noted in [place]. PHYSICAL EXAM BP 126/86 (BP Position: Sitting) [...] Auto 2.39 0.83 - 3.57 K/uL Abs [place] Auto 0.63 0.24 - 0.93 K/uL Abs [...] to the of his daughter. Plan -awaiting WMNKQN68 activity -RTC 3 months It was a pleasure meeting Jairo Adkins today. Plan was discussed and mutually agreed upon with patient. All questions answered. Encouraged the patient to reach out to clinic if anything arises in interim. This case was discussed with Dr. Abdirahman Whitfield MD. Signed, Chana Robles, SPOT BILLING CLERK-GYROSCOPIC INSTRUMENT MECHANIC #[id number] I interviewed and examined Mr Adkins and [...] questions. Jose Whitfield [facility] Instructions Lucy Green RN - 07/21/2022 8:30 AM EDT Please feel free to contact the triage line at [phone] with any concerns. Hematology Primary Care Team Dr. Abdirahman Robles, JARRETT Green, FERMIN [facility], Research Coordinator Please plan ahead and request all prescription refills at your office visit with your doctor. Allow one week for prescription refills to be processed over the telephone. Please allow 2 weeks for all paperwork to be filled out. [facility] The medical information you will have [...] applied to wood stairs to prevent sliding. [place] a bright colored line on the edge [...] Auto 2.39 0.83 - 3.57 K/uL Abs [place] Auto 0.63 0.24 - 0.93 K/uL Abs Eos Auto 0.53 (H) 0.00 - 0.48 K/uL Abs Baso Auto 0.10 (H) 0.00 - 0.09 K/uL documented in this encounter [facility] 05-13-2022 History of Presen t illness [...] daily., Disp: , Rfl: Continuous Blood Gluc Steward/Stewardess [employer] Dining Car (FreeStyle Roxi 14 Day [place]) Device, Use to check blood sugar using the Freestyle Roix sensors, Disp: 1 Each, Rfl: 0 Continuous Blood Gluc Sensor (FreeStyle Roxi 14 Day Sensor) Misc, Use to check blood sugars using the Freestyle Roxi [place]. Change sensor every 14 days., Disp: [...] NEEDLES 31GX5/16 ) 31G X 8 MM [facility], Use new needle with each insulin injection., [...] voiced understanding. He will get tens from Zazzy. Fran Jarrett MD Content Management Consultant - Clinical Department of Anesthesiology and Pain Medicine documented in this encounter [facility] 05-12-2022 History of Presen t illness [...] daily., Disp: , Rfl: Continuous Blood Gluc Steward/Stewardess [employer] Dining Car (FreeStyle Roxi 14 Day [place]) Device, Use to check blood sugar using the Freestyle Roxi sensors, Disp: 1 Each, Rfl: 0 Continuous Blood Gluc Sensor (FreeStyle Roxi 14 Day Sensor) Misc, Use to check blood sugars using the Freestyle Roxi [place]. Change sensor every 14 days., Disp: [...] NEEDLES 31GX5/16 ) 31G X 8 MM [facility], Use new needle with each insulin injection., [...] sensation is intact when tested with 5.07 [place] Nina monofilament bilaterally. Musculoskeletal: 5/5 muscle strength [...] problems or concerns documented in this encounter [facility] 04-14-2022 History of Presen t illness [...] and we will continue to monitor. His NDDVFF11 activity to help predict the risk of relapse to determine when he may require additional prophylactic rituximab with his primary care physician here at [facility] managing his diabetes and other medical [...] any additional questions [facility] Instructions Lucy Green RN - 04/14/2022 8:20 AM EDT Please feel free to contact the triage line at [phone] with any concerns. Hematology Primary Care Team Dr. Abdirahman Ospina, Hematology Fellow FERMIN Avelar, [facility] Candice Neves, Research Coordinator Please plan ahead and request all prescription refills at your office visit with your doctor. Allow one week for prescription refills to be processed over the telephone. Please allow 2 weeks for all paperwork to be filled out. [facility] The medical information you will have [...] applied to wood stairs to prevent sliding. [place] a bright colored line on the edge [...] Auto 2.26 0.83 - 3.57 K/uL Abs [place] Auto 0.77 0.24 - 0.93 K/uL Abs Eos Auto 0.64 (H) 0.00 - 0.48 K/uL Abs Baso Auto 0.09 0.00 - 0.09 K/uL documented in this encounter [facility] 03-30-2022 History of Presen t illness [...] different statin. The 10-year ASCVD risk score ([place] ARY Jr., et al., 2013) is: 16.9% [...] He has not followed up with the [facility]. The patient also reports ongoing left ankle [...] -Advised patient to follow up with the [facility] to discuss ongoing pain. 3. Insertional Achilles [...] lav tubes drawn documented in this encounter [facility] 02-08-2022 History of Presen t illness Narrative [...] daily., Disp: , Rfl: Continuous Blood Gluc Steward/Stewardess Railroad Dining Car (FreeStyle Roxi 14 Day [place]) Device, Use to check blood sugar using the Freestyle Roxi sensors, Disp: 1 Each, Rfl: 0 Continuous Blood Gluc Sensor (FreeStyle Roxi 14 Day Sensor) Misc, Use to check blood sugars using the Freestyle Roxi [place]. Change sensor every 14 days., Disp: [...] NEEDLES 31GX5/16 ) 31G X 8 MM [facility], Use new needle with each insulin injection., [...] sensation is intact when tested with 5.07 [place] Nina monofilament bilaterally. Musculoskeletal: 5/5 muscle strength [...] problems or concerns documented in this encounter [facility] 01-31-2022 History of Presen t illness Narrative Chief Complaint Patient presents with Back Pain Pt states back pain has stayed the same since last visit. Pt states the art specialist did prescribe him a tens unit but he cannot find a place that will fill the prescription. History of Present Illness: Mr. Adkins is a 41 y.o. male with a PMH significant for TTP, T2DM, essential HTN, obesity, chronic knee pain, and DDD who presents today for evaluation of low back pain. Low back pain: The patient has been following with the [facility] for low back pain. His last appointment [...] lumbar spine. At his last visit with [facility] patient was advised to continue PT and [...] sciatica: -Patient will continue following with the [facility] and doing PT. -If pain persists [facility] will likely suggest TPI. -Advised patient to [...] documented in this encounter [facility] 01-27-2022 History of Presen t illness Narrative [facility] Referred by: ANDRÉS Carrion [address] [place] [address] PCP: ANDRÉS Carrion (General) Reason for consult: [...] busPIRone 10 MG tablet, Continuous Blood Gluc Steward/Stewardess [employer] Dining Car (FreeStyle Roxi 14 Day [place]) Device, Continuous Blood Gluc Sensor (FreeStyle [...] documentation of this patient. Fran Jarrett MD Content Management Consultant Anesthesiology / Pain Management [facility] documented in this encounter [facility] Evaluation + Plan note No data available for this section [facility] Chronic bilateral low back pain with left-sided sciatica Myalgia Mylagia and myositis, unspecified Strain of lumbar region, initial encounter Class 3 severe obesity due to excess calories with body mass index (BMI) of 40.0 to 44.9 in adult, unspecified whether serious comorbidity present [facility] Chronic bilateral low back pain with left-sided sciatica- Primary [facility] Diagnosis 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 Bilateral foot pain Pain in limb Postcalcaneal bursitis of right foot [facility] Diagnosis Type 2 diabetes mellitus without complication, with long-term current use of insulin- Primary 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 Postcalcaneal bursitis of right foot [facility] Diagnosis 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 [facility] Diagnosis Insertional Achilles tendinopathy- Primary Retrocalcaneal exostosis Exostosis of unspecified site Postcalcaneal bursitis of right foot Bilateral foot pain Pain in limb [facility] Diagnosis Myalgia- Primary Mylagia and myositis, unspecified Class 3 severe obesity due to excess calories with body mass index (BMI) of 40.0 to 44.9 in adult, unspecified whether serious comorbidity present Chronic bilateral low back pain without sciatica Cervicalgia Muscle spasm of back Other symptoms referable to back [facility] Diagnosis 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 Type 2 diabetes mellitus without complication, with long-term current use of insulin Encounter for follow-up [facility] Insertional Achilles tendinopathy- Primary Other chronic pain Chronic heel pain, right Chronic heel pain, left [facility] Diagnosis Insertional Achilles tendinopathy- Primary Other chronic pain Chronic heel pain, right Chronic heel pain, left Encounter for diabetic foot exam Hammertoe, bilateral [facility] Insertional Achilles tendinopathy [facility] Diagnosis 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 [facility] Diagnosis Well adult exam- Primary Routine [...] vaccination Need for prophylactic vaccination with combined fcbztkkvti-zlnvhnf-ceyfqvycj (DTP) vaccine [facility] Diagnosis Type 2 diabetes mellitus without complication, with long-term current use of insulin- Primary [facility] Diagnosis Gluteal abscess- Primary Cellulitis and abscess of buttock [facility] Diagnosis 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 documented in this encounter [facility] for referral (narrative)* Consultation (Routine) - New Request Specialty Diagnoses / Procedures Referred By Camila ward Referred To Contact Multispecialty Diagnoses Insertional Achilles tendinopathy Shira Cota DPM [address] [facility] [address] [place] [address] Referral ID Status Reason Start Date Expiration Date V isits Requested Visits Authorized [id number] New Request 09/16/2022 10/11/2023 1 1 * MRI/CAT Scan (Routine) - New Request Specialty Diagnoses / Procedures Referred By Camila ward Referred To Contact Diagnoses Insertional Achilles tendinopathy Procedures MRI ANKLE LEFT WITHOUT CONTRAST NE MRI LOWER EXTREM JT, W/O CONTRAST Shira Cota DPM [address] [facility] [address] [place] [address] Referral ID Status Reason Start Date Expiration Date V isits Requested Visits Authorized [id number] New Request 09/16/2022 10/11/2023 1 1 [facility] Consultation (Routine) - New Request Specialty Diagnoses / Procedures Referred By Contac t Referred To Contact Hand Diagnoses Carpal tunnel syndrome of right wrist Lonnie Ring APRN-CNP [address] [place] [address] Referral ID Status Reason Start Date Expiration Date V isits Requested Visits Authorized [id number] New Request 10/27/2022 11/21/2023 1 1 * Adjunctive Therapy (Routine) - Closed Specialty Diagnoses / Procedures Referred By Camila ward Referred To Contact Social Work Diagnoses Housing instability Food insecurity Lonnie Ring APRN-CNP [address] [facility] [address] [place] [address] Referral ID Status Reason Start Date Expiration Date Visits Re quested Visits Authorized [id number] Closed 10/27/2022 11/21/2023 1 1 [facility] Advance Directives No Advanced Directives Records FoundLatest [...] Serge Murdock, DPM [address] [place] [address] Referral ID Status Reason Start Date Expiration Date V isits Requested Visits Authorized [id number] New Request 02/08/2022 03/05/2023 1 1 Specialty Diagnoses / Procedures Referred By Contac t Referred To Contact Diagnoses Insertional Achilles tendinopathy Procedures MRI ANKLE LEFT WITHOUT CONTRAST NE MRI LOWER EXTREM JT, W/O CONTRAST Shira Cota, DPVaishnavi [address] [facility] [address] [place] [address] Referral ID Status Reason Start Date Expiration Date Visits Re quested Visits Authorized [id number] Closed 09/16/2022 10/11/2023 1 1 Summary Purpose Family History No Family History Records FoundNo Family History Records FoundNo Family History Records Found No data available for this section No data available for this section No Family History Records Found Additional Source Comments Reason for Visit (unrecogniz ed section and content) Specialty Diagnoses / Procedures Referred By Camila ward Referred To Contact Spine Diagnoses Chronic bilateral low back pain with left-sided sciatica Lindacataescobar JAM Sagastume-GYROSCOPIC INSTRUMENT MECHANIC [address] [id number] Referral ID Status Reason Start Date Expiration Date V isits Requested Visits Authorized [id number] New Request 01/06/2022 01/31/2023 1 1 Reason Comments Back Pain Pt states back pain has stayed the same since last visit. Pt states the art specialist did prescribe him a tens unit [...] Podiatry Diagnoses Left Achilles tendinitis Lonnie Ring APRNGYROSCOPIC INSTRUMENT MECHANIC [address] [place] [address] Referral ID Status Reason Start Date Expiration Date V isits Requested Visits Authorized [id number] New Request 12/08/2021 01/02/2023 1 1 Specialty Diagnoses / Procedures Referred By Camila ward Referred To Contact Diagnoses Insertional Achilles tendinopathy Procedures XR FOOT RIGHT 3 VIEWS Serge Murdock L, DPM [address] [place] [address] Referral ID Status Reason Start Date Expiration Date V isits Requested Visits Authorized [id number] New Request 02/08/2022 03/05/2023 1 1 Reason [...] tendinopathy Procedures MRI ANKLE LEFT WITHOUT CONTRAST NE MRI LOWER EXTREM JT, W/O CONTRAST Shira Cota, DPM [address] [place] [address] Referral ID Status Reason Start Date Expiration Date Visits Re quested Visits Authorized [id number] Closed 09/16/2022 10/11/2023 1 1 Reason Comments Physical Specialty Diagnoses / Procedures Referred By Camila ward Referred To Contact Diagnoses Research exam Procedures MRI CARDIAC STRESS WITH CONTRAST NE CARDIAC MRI W/W/O CONTRAST W STRESS Yoseph Qureshi MD [address] [place] [address] Referral ID Status Reason Start Date Expiration Date V isits Requested Visits Authorized [id number] Auth Not Needed 01/18/2023 02/12/2024 1 1 Reason Comments Diabetes Reason Comments Abscess Left butt cheek boil that started on Monday, and has gotten progressively worse per patient; he attempted to sarmad it himself on Monday and used warm compresses on Monday as well; denies fevers or chills Care Teams (unrecognized sec tion and content) Butadiene Converter Utility Operator Relationship Specialty Start Date End Date Lonnie Ring APRN-GYROSCOPIC INSTRUMENT MECHANIC [address] [place] [address] PCP - General Certified Nurse Practitioner 09/22/21 Butadiene Converter Utility Operator Relationship Specialty Start Date End Date Lonnie Ring APRN-GYROSCOPIC INSTRUMENT MECHANIC [address] [place] [address] PCP - General Certified Nurse Practitioner 09/22/21 Butadiene Converter Utility Operator Relationship Specialty Start Date End Date Lonnie Ring APRN-GYROSCOPIC INSTRUMENT MECHANIC [address] [place] [address] PCP - General Certified Nurse Practitioner 09/22/21 Butadiene Converter Utility Operator Relationship Specialty Start Date End Date Lonnie Ring [facility] [address] [place] [address] PCP - General Certified Nurse Practitioner 09/22/21 Butadiene Converter Utility Operator Relationship Specialty Start Date End Date Lonnie Ring [facility] [address] [place] [address] PCP - General Certified Nurse Practitioner 09/22/21 Butadiene Converter Utility Operator Relationship Specialty Start Date End Date Lonnie Ring [facility] [address] [place] [address] PCP - General Certified Nurse Practitioner 09/22/21 Butadiene Converter Utility Operator Relationship Specialty Start Date End Date Lonnie Ring [facility] [address] [place] [address] PCP - General Certified Nurse Practitioner 09/22/21 Butadiene Converter Utility Operator Relationship Specialty Start Date End Date Lonnie Ring [facility] [address] [place] [address] PCP - General Certified Nurse Practitioner 09/22/21 Butadiene Converter Utility Operator Relationship Specialty Start Date End Date Lonnie Ring [facility] [address] [place] [address] PCP - General Certified Nurse Practitioner 09/22/21 Butadiene Converter Utility Operator Relationship Specialty Start Date End Date Lonnie Ring [facility] [address] [place] [address] PCP - General Certified Nurse Practitioner 09/22/21 Butadiene Converter Utility Operator Relationship Specialty Start Date End Date Lonnie RingLAURIGYROSCOPIC INSTRUMENT MECHANIC [address] [place] [address] PCP - General Certified Nurse Practitioner 09/22/21 Butadiene Converter Utility Operator Relationship Specialty Start Date End Date Lonnie Ring JAM-GYROSCOPIC INSTRUMENT MECHANIC [address] [place] [address] PCP - General Certified Nurse Practitioner 09/22/21 Butadiene Converter Utility Operator Relationship Specialty Start Date End Date Lonnie Ring JAMGYROSCOPIC INSTRUMENT MECHANIC [address] [place] [address] PCP - General Certified Nurse Practitioner 09/22/21 Butadiene Converter Utility Operator Relationship Specialty Start Date End Date Lonnie RingJAM-GYROSCOPIC INSTRUMENT MECHANIC [address] [place] [address] PCP - General Certified Nurse Practitioner 09/22/21 Butadiene Converter Utility Operator Relationship Specialty Start Date End Date Izabela Turner [address] [place] [address] PCP - General 09/16/23 Butadiene Converter Utility Operator Relationship Specialty Start Date End Date Polo Meredith, SPOT BILLING CLERK-GYROSCOPIC INSTRUMENT MECHANIC [address] [place] [address] PCP - Family Medicine Certified Nurse Practitioner 08/04/23 Polo Meredith, SPOT BILLING CLERK-GYROSCOPIC INSTRUMENT MECHANIC [address] [place] [address] PCP - General Certified Nurse Practitioner 08/04/23 (unrecognized sect ion and content) No Status Records FoundNo Status Records FoundNo Status Records FoundNo Status Records Found INFORMATION SOURCE (unrecogn ized section and content) DATE CREATED AUTHOR AUTHOR'S ORGANIZ ATION 09/18/2023 [facility] DATE CREATED AUTHOR AUTHOR'S ORGANIZ ATION 09/23/2023 [facility] DATE CREATED AUTHOR AUTHOR'S ORGANIZ ATION 12/13/2023 [facility] ([place]) Scheduled Active and Recently Administ [...] BE BASED ON THE PRIMARY CLINICAL RECORDS. [employer] provides no warranty or guarantee of the accuracy or completeness of information in this document.
== END 2023-12-23 06:15 | disposition home or self-care (01) ==
PROVIDERS: Emergency Provider Emergency Medicine; Visit Provider Emergency Medicine
DX: M25.511 Pain in right shoulder (principal); E11.40 Type 2 diabetes mellitus with diabetic neuropathy, unspecified; F17.210 Nicotine dependence, cigarettes, uncomplicated
CPT/HCPCS: 99282

== ENCOUNTER 2024-02-22 22:18 | Emergency (ER) | payer MEDICAID, SELFPAY ==
[2024-02-22 22:19] VITALS: BP 151/96; PULSE 108; RESP 18; TEMP 36.7; O2SAT 100; BMI 41.3
[2024-02-22 22:43] LABS: Bedside Glucose > 500 mg/dL (74-106)
[2024-02-22 22:58] LABS: Absolute Lymphocyte Count 2.57 X10^3/uL (0.83-4.51); Absolute Neutrophil Count 4.9 X10^3/uL (2.0-7.7); Basophil# 0.08 X10^3/uL; Basophil% 0.9 % (0-1); Eosinophil# 0.39 X10^3/uL; Eosinophils% 4.4 % (0-5); Hematocrit 48.5 % (40-54); Hemoglobin 16.1 g/dL (13.0-16.5); Lymphocyte # 2.57 X10^3/ul (0.83-4.51); Lymphocyte % 29.2 % (19-41); Mean Corp Hgb Conc 33.2 g/dL (32-36); Mean Corpuscular Hgb 30.1 pg (27.0-32.0); Mean Corpuscular Volume 90.7 fL (80-94); Mean Platelet Vol. 10.7 fl (6.2-12.0); Monocyte# 0.84 X10^3/uL; Monocyte% 9.6 % (0-10); NRBC Flagged by Analyzer 0 % (0-5); Neutrophil # 4.88 X10^3/uL (2.7-7.7); Neutrophil % 55.6 % (47-70); Platelet Count 230 K/mm3 (150-450); RBC Distribution Width CV 13.2 % (11.6-14.6); RBC Distribution Width SD 44.2 fl (35.1-43.9); Red Blood Count 5.35 M/mm3 (4.6-6.2); White Blood Count 8.8 K/mm3 (4.4-11.0)
[2024-02-22] MEDS: 0.9% Normal Saline (1000mL) 1,000 ML 999 ML IV (23:05)
[2024-02-22 23:21] LABS: Blood Gas Specimen Type VEN; O2 Delivery Device Room Air; SITE Not entered; VBG BASE EXCESS 2 mmol/L (-1.0-3.5); VBG Bicarbonate 28 mmol/L (22-26); VBG PO2 22 mmHg (25-40); VBG SO2 33 % (50-70); VBG TCO2 29 mmol/L (23-33); VBG pCO2 48.8 mmHg (41-51); VBG pH 7.36 (7.32-7.42)
[2024-02-22 23:25] LABS: Lactic Acid 1.9 mmol/L (0.4-1.9)
[2024-02-22 23:32] LABS: Anion Gap 9 (5-15); BUN 18 mg/dL (7-18); BUN/Creat Ratio 14.3 RATIO (10-20); Calcium,Total 9.3 mg/dL (8.5-10.1); Chloride 92 mmol/L (98-107); Creatinine, Serum 1.26 mg/dL (0.70-1.30); EST Glomerular Filtration Rate 66 mL/min (>60); Est Glom Filt Rate - Afr Amer 80 mL/min (>60); Estimated Creatinine Clearance 99.68 ml/min; Glucose 890 mg/dL (74-106); Potassium 4.3 mmol/L (3.5-5.1); Sodium Level 127 mmol/L (136-145)
[2024-02-23 00:22] LABS: Osmolality, Serum 317 mOsm/KG (275-295)
--- NOTE | 2024-02-23 00:41 | HP.PCM.HOS_ITS ---
HPI - General General Date of Admission: 02/23/24 Date of Service: 02/23/24 Chief Complaint: Highly Elevated Glucose. HPI Narrative JAIRO ADKINS, is a 44 M with a past medical history of tobacco abuse, history of substance abuse, morbid obesity; BMI 41.3 this admission, history of TTP, bipolar disorder, migraine headaches, and diabetes mellitus type 2; uncontrolled with hyperglycemia who presents to [facility] ER complaining of highly elevated blood glucose. Mr. Adkins reports his symptoms began approximately 3 days prior to admission after he ran out of Ziippi and was not able to obtain a refill. He then noticed persistent elevation of his blood glucose accompanied by polyuria, polydipsia and polyphagia. When he checked his blood sugar earlier today was 890 mg/dL so he decided to come in for further evaluation and treatment. He denies any history of DKA or HONK. He also denies associated fever, chills or vomiting but he does admit to nausea. In the ER he was noted to have evidence of HONK with blood glucose of 890 mg/dL along with negative serum acetone and an unremarkable VBG and he was then admitted to the ICU for ongoing care for stay that was expected to be greater than 2 midnights - but then this patient left AMA from the ER shortly after admission. This is a same-day admission and discharge. [facility] Medical History Anxiety Bipolar disorder Depression Diabetes Migraines Smoker Substance abuse TTP (thrombotic thrombocytopenic purpura) Home Medications dulaglutide 0.75 mg/0.5 mL subcutaneous pen injector (Ziippi) 0.75 mg subcut QWEEK 01/06/22 [History Last Taken Unknown] hydrocodone-acetaminophen 5-325mg 5mg-325mg 1 tab PO Q6H PRN pain 3 days #12 tabs 11/30/23 [Rx Last Taken Unknown] Allergy/AdvReac Type Severity Reaction Status Date / Time adhesive Allergy Rash Verified 02/23/24 04:43 dicyclomine HCl [From Bentyl] Allergy Hives Verified 02/23/24 04:43 fentanyl Allergy Hives Verified 02/23/24 04:43 Latex, Natural Rubber Allergy Rash Verified 02/23/24 04:43 methadone Allergy Other Verified 02/23/24 04:43 prednisone Allergy Rash Verified 02/23/24 04:43 tramadol HCl [From Ultram] Allergy Hives Verified 02/23/24 04:43 aspirin AdvReac Other Verified 02/23/24 04:43 ketorolac tromethamine AdvReac Upset Verified 02/23/24 04:43 [From Toradol] Stomach Family History Other Diabetes Surgical History H/O eye surgery Social History household members: spouse Smoking Status: Current every day smoker tobacco type: cigarettes substance use type: former substance user ROS ROS Narrative Review of systems: General: Patient denies fever or chills HENT: Denies headache, denies stuffy nose, denies sore throat EYES: Denies changes in vision or discharge from eyes. Resp: Denies cough, denies shortness of breath Cardiac: Denies chest pain, palpitations or heart racing. GI: Denies abdominal pain, denies changes in bowel, had some nausea : Patient admits to excessive urination as per HPI. Extremity: Denies swelling Musculoskeletal: Feels somewhat generally weak and unwell but denies arthralgias or myalgias. Neuro: Patient denies headache, paresthesias or focal neurologic weakness. Heme: Denies any bleeding or bruising Skin: Denies rashes Psychiatric: No complaints voiced related to uncontrolled depression or anxiety. Endocrine: Patient admits to polyuria, polydipsia and polyphagia as per HPI. The rest of the 14 point ROS was negative except for positives in HPI. Vital Signs Vital Signs Vital Signs: 02/22/24 22:19 02/22/24 22:18 Temperature 98.0 F Temperature Source Temporal Pulse Rate 108 H Respiratory Rate 18 Respiratory Effort Normal Non-Labored Respiratory Pattern Normal Blood Pressure 151/96 H Blood Pressure Mean 114 Pulse Ox 100 Oxygen Delivery Method Room Air Weight Weight: 280 lb Body Mass Index (BMI) 41.3 Physical Exam Const alert, oriented x3, no apparent distress and healthy appearing Constitutional Narrative: Patient is morbidly obese. General Appearance: cooperative HEENT normocephalic, head/scalp atraumatic and hearing grossly normal bilaterally HEENT Narrative: Mucous membranes dry. Eyes PERRL and EOMs intact bilaterally Neck no lymphadenopathy and supple Resp normal respiratory effort, no retractions, no use of accessory muscles and clear to auscultation bilaterally Cardio regular rate and regular rhythm GI normal to inspection, nondistended, normoactive bowel sounds, soft to palpation, non-tender and non-distended GI Narrative: Morbidly obese. Extremity normal to inspection, full ROM and no clubbing, cyanosis or edema Skin Skin Narrative: Patient has no evidence of abscess, jaundice or rash. Neuro oriented x3, CN's II-XII intact bilaterally, moves all extremities and no focal motor deficits Sensorium / Orientation: awake, alert, oriented to person, oriented to place and oriented to time Speech: speech normal Psych affect normal Results Medical Records Data Attestation: I reviewed the patient's medical records Lab / Micro Data Attestation: I reviewed the patient's lab results. 02/22/24 22:50 02/22/24 22:50 Labs: Laboratory Results - last 24 hr 02/22/24 22:24: POC Glucose > 500 H* 02/22/24 22:50: WBC 8.8, RBC 5.35, Hgb 16.1, Hct 48.5, MCV 90.7, MCH 30.1, MCHC 33.2, RDW Std Deviation 44.2 H, RDW Coeff of Serafin 13.2, Plt Count 230, MPV 10.7, Immature Gran % (Auto) 0.300, Neut % (Auto) 55.6, Lymph % (Auto) 29.2, [place] % (Auto) 9.6, Eos % (Auto) 4.4, Baso % (Auto) 0.9, Absolute Neuts (auto) 4.9, Absolute Lymphs (auto) 2.57, Nucleated RBC % 0, Sodium 127 L, Potassium 4.3, Chloride 92 L, Carbon Dioxide 26.0, Anion Gap 9, BUN 18, Creatinine 1.26, Estim Creat Clear Calc 99.68, Est GFR (MDRD) Af Amer 80, Est GFR (MDRD) Non-Af 66, BUN/Creatinine Ratio 14.3, Glucose 890 H*, Serum Osmolality 317 H, Lactic Acid 1.9, Calcium 9.3, Magnesium 2.0, Acetone Level NEGATIVE ABG Data ABG results: ABG 02/22/24 23:18 Specimen Type ROBERTA Sample Site Not entered VBG pH 7.36 VBG pO2 22 L VBG HCO3 28 H VBG Total CO2 29 VBG O2 Sat (Calc) 33 L VBG Base Excess 2 POC Mix VBG pCO2 Pt Tmp 48.8 O2 Delivery Device Room Air Assessment & Plan Assessment/Plan (1) Hyperosmolar hyperglycemic state (HHS): (2) Type 2 diabetes mellitus: QUALIFIERS: Diabetes mellitus complication status: without complication Diabetes mellitus medical terminologist insulin use: without mcfp use Qualified Code(s): E11.9 - Type 2 diabetes mellitus without complications (3) Morbid obesity with BMI of 40.0-44.9, adult: (4) Nicotine addiction: QUALIFIERS: Nicotine product type: unspecified Substance use status: unspecified nicotine-induced disorder Qualified Code(s): F17.209 - Nicotine dependence, unspecified, with unspecified nicotine-induced disorders PLAN: Plan 1. HONK with blood glucose of 890 mg/dL along with negative serum acetone and an unremarkable VBG - Admit to ICU. Continue IV insulin drip begun in the ER and titrate to decrease sugars slowly back to normal range. We will clinical dietitian to help this patient with diabetic teaching. 2. Diabetes mellitus type 2; uncontrolled with hyperglycemia after inadvertently running out of Trulicity precipitating #1 - Resume IV insulin at this time and then when sugars are controlled consider converting him back to his previous Trulicity dose. Check hemoglobin A1c to objectively assess quality of diabetic control. Check lipid profile to evaluate for evidence of metabolic syndrome. 3. Morbid obesity; BMI 41.3 this admission - Noted. Weight loss will be recommended. 4. Tobacco abuse - Tobacco cessation will be strongly encouraged with nicotine patch offered to control cravings. 5. History of substance abuse - Check [place] UDS to screen for any illicit agents that may be contributing to his condition. 6. History of TTP - Noted. 7. Bipolar disorder - Restart home regimen as previous. 8. migraine headaches - Stable with no complaints of headache at this time. 9. DVT prophylaxis - Lovenox 40 mg sq daily plus SCD's. Total time: Approximately 85 minutes. Update: Patient left the ER AMA shortly after admission. This is a same-day admission and discharge. Charges/Coding Visit Charges OBSV E&M: [id number] Observ/hosp same date L3
[2024-02-23 00:51] VITALS: BP 133/87; PULSE 88; RESP 14; O2SAT 93
[2024-02-23] MEDS: 0.9% Normal Saline (1000mL) 1,000 ML 999 ML IV (00:52)
[2024-02-23 01:02] LABS: Bacteria 0 SEEN /hpf (None Seen); Mucous, Urine 0 SEEN /hpf (<or=2+); Red Blood Cells-Urine 0 SEEN /hpf (0-5); Squamous Epithelial Cells - UA 0 SEEN /hpf (0-5); White Blood Cells 0 SEEN /hpf (0-5)
[2024-02-23 01:12] LABS: Color, Urine Straw (Yellow); Glucose, Dipstick 1000 mg/dl (Normal); Ketone-Dipstick Negative (Negative); Leukocyte Esterase-Dipstick Negative /ul (Negative); Nitrite-Dipstick Negative (Negative); Occult Blood-Urine Negative /ul (Negative); Protein-Dipstick Negative (Negative); Urine Bilirubin Dipstick Negative (Negative); Urine Clarity Clear (Clear); Urine Urobilinogen Normal (Normal)
[2024-02-23 02:05] LABS: Phosphorus 3.9 mg/dL (2.5-4.9)
--- NOTE | 2024-02-23 02:07 | EDS_ITS ---
HPI History of Present Illness Chief Complaint: Hyperglycemia Informant: patient Narrative Narrative: Patient is a 44-year-old male with past medical history of type 2 diabetes. He states he has been on Trulicity for this. He states that he ran out of his medication 1 to 2 weeks ago and despite trying to get a hold of his doctor for refill has been unsuccessful. He states in the last few days he has had increased urination and increased thirst and has concerned that his blood sugar is running high and secondary to his comes in for evaluation [facility] Medical History Anxiety Bipolar disorder Depression Diabetes Migraines Smoker Substance abuse TTP (thrombotic thrombocytopenic purpura) Home Medications dulaglutide 0.75 mg/0.5 mL subcutaneous pen injector (Trulicity) 0.75 mg subcut QWEEK 01/06/22 [History Last Taken Unknown] hydrocodone-acetaminophen 5-325mg 5mg-325mg 1 tab PO Q6H PRN pain 3 days #12 tabs 11/30/23 [Rx Last Taken Unknown] Allergy/AdvReac Type Severity Reaction Status Date / Time adhesive Allergy Rash Verified 02/22/24 22:20 dicyclomine HCl [From Bentyl] Allergy Hives Verified 02/22/24 22:20 fentanyl Allergy Hives Verified 02/22/24 22:20 Latex, Natural Rubber Allergy Rash Verified 02/22/24 22:20 methadone Allergy Other Verified 02/22/24 22:20 prednisone Allergy Rash Verified 02/22/24 22:20 tramadol HCl [From Ultram] Allergy Hives Verified 02/22/24 22:20 aspirin AdvReac Other Verified 02/22/24 22:20 ketorolac tromethamine AdvReac Upset Verified 02/22/24 22:20 [From Toradol] Stomach Family History Other Diabetes Surgical History H/O eye surgery Social History household members: spouse Smoking Status: Current every day smoker tobacco type: cigarettes substance use type: former substance user ROS ROS ED Constitutional Constitutional ED: Denies chills or fever(s) ENT ENT ED: Denies sore throat Cardiovascular Cardiovascular: Denies chest pain Respiratory/Chest Respiratory/Chest: Denies cough or dyspnea Gastrointestinal Gastrointestinal: Denies abdominal pain, diarrhea, nausea or vomiting Genitourinary Genitourinary ED: Reports urinary frequency; Denies dysuria or hematuria Musculoskeletal Musculoskeletal: Denies myalgias Integumentary Denies rash Neurologic Neurologic: Denies headache(s) Hematologic/Lymphatic Hematologic/Lymphatic: Denies easy bleeding or easy bruising EXAM Physical Exam Const Vital Signs: 02/22/24 22:19 02/22/24 22:18 02/23/24 00:51 Temperature 98.0 F Temperature Source Temporal Pulse Rate 108 H 88 Respiratory Rate 18 14 Respiratory Effort Normal Non-Labored Respiratory Pattern Normal Blood Pressure 151/96 H 133/87 H Blood Pressure Mean 114 102 Pulse Ox 100 93 Oxygen Delivery Method Room Air Positive well nourished, well developed and obese General Appearance ED: well developed; Negative for pallor Nutritional Appearance: obese HEENT Reports dry mucous membranes HEENT Narrative: Mucous membranes are dry and tacky No tongue or lip swelling no oral lesions no airway edema or compromise No signs of infection noted in the posterior pharynx Mouth ED: Yes dry mucous membranes Mouth: dry mucous membranes Eyes PERRL and EOMs intact bilaterally General Eye ED: Negative for scleral icterus Neck supple Neck Narrative: No nuchal rigidity or meningeal signs Resp normal respiratory effort and clear to auscultation bilaterally Cardio regular rhythm Rate: tachycardic and other Other Details: Tachycardic rate with regular rhythm GI normal to inspection, nondistended, normoactive bowel sounds, non-tender, non- distended and no masses GI Narrative: No voluntary guarding or rigidity No pulsatile mass or fluid wave Auscultation: normoactive bowel sounds Palpation: soft Extremity normal to inspection Neuro oriented x3 and CN's II-XII intact bilaterally Sensorium / Orientation: alert Motor Exam: strength 5/5 throughout Psych mental status grossly normal Skin no rashes or lesions noted, no wounds and No skin turgor normal Skin Narrative: Skin turgor is increased General Skin Exam: Negative for jaundice or pallor MDM MDM MDM Narrative Medical decision making narrative: Patient arrived to the ER hypertensive and slightly tachycardic. He reported being out of his Trulicity for 1 to 2 weeks and now has polydipsia and polyuria. Differential diagnosis is for hyperglycemia secondary to lack of medication versus DKA versus HHS versus acute kidney injury or severe electrolyte abnormality. Patient blood work was obtained and does not show DKA as his anion gap and bicarb are normal and he has no acetone present. However his blood sugar was 890 and a calculated serum osmolality level of 335 correlates with HHS. His sodium is low 127 but this is pseudohyponatremia and once corrected is normal at 139. The case was discussed with medicine on-call based on the medication noncompliance hyperglycemia and now HHS. They do recommend he be placed in the hospital for insulin drip and continued fluid hydration based on the high glucose value. The patient was informed of this. He states that he needs to go home first and get items. I informed him that we cannot place his admission on hold while he leaves and comes back at what ever time. I informed him that if he does not stay in the hospital at this time there is concern he could progress to DKA or develop acute kidney injury or severe electro abnormality leading to seizure activity and potentially even . He states he understands this but cannot be in the hospital without his things and therefore he will leave the hospital AGAINST MEDICAL ADVICE. History & Record Review Discussion w/independent historian: Patient Lab Data Attestation: I reviewed the patient's lab results. Labs: Laboratory Results - last 24 hr 02/22/24 02/22/24 02/23/24 22:24 22:50 00:51 WBC 8.8 RBC 5.35 Hgb 16.1 Hct 48.5 MCV 90.7 MCH 30.1 MCHC 33.2 RDW Std Deviation 44.2 H RDW Coeff of Serafin 13.2 Plt Count 230 MPV 10.7 Immature Gran % (Auto) 0.300 Neut % (Auto) 55.6 Lymph % (Auto) 29.2 [place] % (Auto) 9.6 Eos % (Auto) 4.4 Baso % (Auto) 0.9 Absolute Neuts (auto) 4.9 Absolute Lymphs (auto) 2.57 Nucleated RBC % 0 Sodium 127 L Potassium 4.3 Chloride 92 L Carbon Dioxide 26.0 Anion Gap 9 BUN 18 Creatinine 1.26 Estim Creat Clear Calc 99.68 Est GFR (MDRD) Af Amer 80 Est GFR (MDRD) Non-Af 66 BUN/Creatinine Ratio 14.3 Glucose 890 H* Serum Osmolality 317 H Lactic Acid 1.9 Calcium 9.3 Phosphorus 3.9 Magnesium 2.0 Urine Color Straw Urine Clarity Clear Urine pH 7.0 Ur Specific [place] 1.010 Urine Protein Negative Urine Glucose (UA) 1000 H Urine Ketones Negative Urine Occult Blood Negative Urine Nitrite Negative Urine Bilirubin Negative Urine Urobilinogen Normal Ur Leukocyte Esterase Negative Urine RBC 0 SEEN Urine WBC 0 SEEN Ur Squamous Epith Cells 0 SEEN Urine Bacteria 0 SEEN Urine Mucus 0 SEEN Acetone Level NEGATIVE POC Glucose > 500 H* ABG Data ABG results: ABG 02/22/24 23:18 Specimen Type ROBERTA Sample Site Not entered VBG pH 7.36 VBG pO2 22 L VBG HCO3 28 H VBG Total CO2 29 VBG O2 Sat (Calc) 33 L VBG Base Excess 2 POC Mix VBG pCO2 Pt Tmp 48.8 O2 Delivery Device Room Air Management Discussion w/another healthcare provider: Hospitalist Discharge Plan Triage Chief Complaint: Hyperglycemia ED Provider: Desmond Mendoza Dx/Rx/DC Orders Clinical Impression: Hyperosmolar hyperglycemic state (HHS), Obesity (BMI 30.0-34.9), Type 2 diabetes mellitus Primary Care Provider: Care Physician,No Primary Disposition Disposition: Against Medical Advice Discharge Date/Time: 02/23/24 02:31
--- NOTE | 2024-02-23 02:23 | ED.RN ---
PT SPOKE TO DR GRIMES AND INFORMED HIM THAT HE HAD THINGS TO DO At HOME AND THAT HE COULD NOT BE ADMITTED. THIS NURSE WENT IN AND PT ASKED THAT HIS BLOOD SUGAR BE TESTED--BLOOD SUGAR NOW 560( MAde aware).PT SIGNED AMA papers saying he would come back later.i have stuff I need to do at home. Pt refused the K+ rider and insulin. My doesnt drive and I have things to do I removed and made aware he is free to leave.
[2024-02-23 02:28] VITALS: BP 147/78; PULSE 82; RESP 18; TEMP 36.7; O2SAT 97
[2024-02-23 02:38] LABS: Bedside Glucose > 500 mg/dL (74-106)
[2024-02-23 03:07] LABS: Hemoglobin A1c 8.1 % (3.8-5.6)
== END 2024-02-23 02:31 | disposition left against medical advice (07) ==
LOC: ED 02-23 02:07 → ICU 02-23 02:37
PROVIDERS: Internal Medicine; Emergency Provider Emergency Medicine; Visit Provider Emergency Medicine
DX: E11.00 Type 2 diabetes mellitus with hyperosmolarity without nonketotic hyperglycemic-hyperosmolar coma (NKHHC) (principal); Z79.85 Long-term (current) use of injectable non-insulin antidiabetic drugs; F17.210 Nicotine dependence, cigarettes, uncomplicated; E66.9 Obesity, unspecified; Z68.34 Body mass index [BMI] 34.0-34.9, adult
CPT/HCPCS: 80048; 81001; 82009; 82803; 82962 ×2; 83036; 83605; 83735; 83930; 84100; 85025; 99283; A4216; J7030

== ENCOUNTER 2024-02-23 04:39 | Observation (INO) | payer MEDICAID, SELFPAY ==
[2024-02-23] VITALS (12 sets, daily range): BP systolic 123–154; BP diastolic 76–114; PULSE 74–108; RESP 16–25; TEMP 36.3–36.9; O2SAT 92–98; BMI 41.2
[2024-02-23 05:17] LABS: Absolute Lymphocyte Count 2.61 X10^3/uL (0.83-4.51); Absolute Neutrophil Count 4.9 X10^3/uL (2.0-7.7); Basophil# 0.06 X10^3/uL; Basophil% 0.7 % (0-1); Eosinophil# 0.57 X10^3/uL; Eosinophils% 6.3 % (0-5); Hemoglobin 16.1 g/dL (13.0-16.5); Lymphocyte # 2.61 X10^3/ul (0.83-4.51); Lymphocyte % 28.9 % (19-41); Mean Corp Hgb Conc 34.3 g/dL (32-36); Mean Corpuscular Hgb 30.3 pg (27.0-32.0); Mean Corpuscular Volume 88.5 fL (80-94); Mean Platelet Vol. 10.9 fl (6.2-12.0); Monocyte# 0.85 X10^3/uL; Monocyte% 9.4 % (0-10); NRBC Flagged by Analyzer 0 % (0-5); Neutrophil # 4.92 X10^3/uL (2.7-7.7); Neutrophil % 54.4 % (47-70); Platelet Count 219 K/mm3 (150-450); RBC Distribution Width SD 42.5 fl (35.1-43.9); Red Blood Count 5.31 M/mm3 (4.6-6.2)
[2024-02-23] MEDS: Potassium Chloride 10mEq/100mL 10 MEQ/100 ML IV.SOLN. 100 MEQ IV BOLUS ×2 (05:23→06:42)
[2024-02-23] MEDS: Insulin Lispro 100 UNIT in 0.9% Normal Saline (100mL Bag) 99 ML 12.7 UNIT CONT INF (05:34)
--- NOTE | 2024-02-23 05:41 | PCM.HP.STD ---
HPI - General General Date of Admission: 02/23/24 Date of Service: 02/23/24 Chief Complaint: Severe Hyperglycemia. HPI Narrative JAIRO ADKINS, is a 44 M with a past medical history of tobacco abuse, history of substance abuse, morbid obesity; BMI 41.3 this admission, history of TTP, bipolar disorder, migraine headaches, and diabetes mellitus type 2; uncontrolled with hyperglycemia who presents to [facility] ER complaining of highly elevated blood glucose. Mr. Adkins reports his symptoms began approximately 2 months prior to admission after he ran out of [employer] SARL and was not able to obtain a refill. He then noticed persistent elevation of his blood glucose accompanied by polyuria, polydipsia and polyphagia. When he checked his blood sugar earlier today was 890 mg/dL so he decided to come in for further evaluation and treatment. He denies any history of DKA or HONK. He also denies associated fever, chills or vomiting but he does admit to nausea and malaise. It is also important to note that this patient has relatively poor insight into his complex medical condition. In the ER he was noted to have evidence of HHS with blood glucose of 890 mg/dL along with negative serum acetone and an unremarkable VBG and then he left AMA and came back to the ER again this morning and he was then admitted to the ICU for ongoing care for stay that is expected to be greater than 2 midnights. [facility] Medical History Anxiety Bipolar disorder Depression Diabetes Migraines Smoker Substance abuse TTP (thrombotic thrombocytopenic purpura) Home Medications dulaglutide 0.75 mg/0.5 mL subcutaneous pen injector ([employer] SARL) 0.75 mg subcut QWEEK 01/06/22 [History Last Taken Unknown] hydrocodone-acetaminophen 5-325mg 5mg-325mg 1 tab PO Q6H PRN pain 3 days #12 tabs 11/30/23 [Rx Last Taken Unknown] Allergy/AdvReac Type Severity Reaction Status Date / Time adhesive Allergy Rash Verified 02/23/24 04:43 dicyclomine HCl [From Bentyl] Allergy Hives Verified 02/23/24 04:43 fentanyl Allergy Hives Verified 02/23/24 04:43 Latex, Natural Rubber Allergy Rash Verified 02/23/24 04:43 methadone Allergy Other Verified 02/23/24 04:43 prednisone Allergy Rash Verified 02/23/24 04:43 tramadol HCl [From Ultram] Allergy Hives Verified 02/23/24 04:43 aspirin AdvReac Other Verified 02/23/24 04:43 ketorolac tromethamine AdvReac Upset Verified 02/23/24 04:43 [From Toradol] Stomach Family History Other Diabetes Surgical History H/O eye surgery Social History household members: spouse Smoking Status: Current every day smoker tobacco type: cigarettes substance use type: former substance user ROS ROS Narrative Review of systems: General: Patient denies fever or chills HENT: Denies headache, denies stuffy nose, denies sore throat EYES: Denies changes in vision or discharge from eyes. Resp: Denies cough, denies shortness of breath Cardiac: Denies chest pain, palpitations or heart racing. GI: Denies abdominal pain, denies changes in bowel, had some nausea : Patient admits to excessive urination as per HPI. Extremity: Denies swelling Musculoskeletal: Feels somewhat generally weak and unwell but denies arthralgias or myalgias. Neuro: Patient denies headache, paresthesias or focal neurologic weakness. Heme: Denies any bleeding or bruising Skin: Denies rashes Psychiatric: No complaints voiced related to uncontrolled depression or anxiety. Endocrine: Patient admits to polyuria, polydipsia and polyphagia as per HPI. The rest of the 14 point ROS was negative except for positives in HPI. Vital Signs Vital Signs Vital Signs: 02/23/24 04:39 Temperature 98.4 F Temperature Source Oral Pulse Rate 94 Respiratory Rate 18 Blood Pressure 154/88 H Blood Pressure Mean 110 Pulse Ox 95 Oxygen Delivery Method Room Air Weight Weight: 279 lb 1.683 oz Body Mass Index (BMI) 41.2 Physical Exam Const alert, oriented x3 and no apparent distress Constitutional Narrative: Patient is morbidly obese. General Appearance: cooperative HEENT normocephalic, head/scalp atraumatic and hearing grossly normal bilaterally HEENT Narrative: Mucous membranes dry. Eyes PERRL and EOMs intact bilaterally Neck no lymphadenopathy and supple Resp normal respiratory effort, no retractions, no use of accessory muscles and clear to auscultation bilaterally Cardio regular rate and regular rhythm GI normal to inspection, nondistended, normoactive bowel sounds, soft to palpation, non-tender and non-distended Extremity normal to inspection, full ROM and no clubbing, cyanosis or edema Skin Skin Narrative: Patient has no evidence of abscess, jaundice or rash. Neuro oriented x3, CN's II-XII intact bilaterally, moves all extremities and no focal motor deficits Sensorium / Orientation: awake, alert, oriented to person, oriented to place and oriented to time Speech: speech normal Psych Psych Narrative: Patient has a flat, depressed affect with seemingly poor insight into his complex medical condition. Mood & Affect: depressed Results Medical Records Data Attestation: I reviewed the patient's medical records Lab / Micro Data Attestation: I reviewed the patient's lab results. 02/23/24 04:50 02/23/24 04:50 Labs: Laboratory Results - last 24 hr 02/23/24 04:50: WBC 9.0, RBC 5.31, Hgb 16.1, Hct 47.0, MCV 88.5, MCH 30.3, MCHC 34.3, RDW Std Deviation 42.5, RDW Coeff of Serafin 13.0, Plt Count 219, MPV 10.9, Immature Gran % (Auto) 0.300, Neut % (Auto) 54.4, Lymph % (Auto) 28.9, [place] % (Auto) 9.4, Eos % (Auto) 6.3 H, Baso % (Auto) 0.7, Absolute Neuts (auto) 4.9, Absolute Lymphs (auto) 2.61, Nucleated RBC % 0 Assessment & Plan Assessment/Plan (1) Hyperosmolar hyperglycemic state (HHS): (2) Type 2 diabetes mellitus: QUALIFIERS: Diabetes mellitus complication status: without complication 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 HHS with blood glucose of 890 mg/dL along with negative serum acetone and an unremarkable VBG - Admit to ICU. Continue IV insulin drip begun in the ER and titrate to decrease sugars slowly back to normal range. We will clinical dietitian to help this patient with diabetic teaching. 2. Diabetes mellitus type 2; uncontrolled with hyperglycemia after running out of [employer] since December 2023 precipitating #1 - Resume IV insulin at this time and then when sugars are controlled consider converting him back to his previous Trulicity dose. Check hemoglobin A1c to objectively assess quality of diabetic control. Check lipid profile to evaluate for evidence of metabolic syndrome. 3. Morbid obesity; BMI 41.3 this admission - Noted. Weight loss will be recommended. Check TSH in light of #1. 4. Tobacco abuse - Tobacco cessation will be strongly encouraged with nicotine patch offered to control cravings. 5. History of substance abuse - Check [place] UDS to screen for any illicit agents that may be contributing to his condition. 6. History of TTP - Noted. 7. Bipolar disorder - Restart home regimen as previous. 8. Migraine headaches - Stable with no complaints of headache at this time. 9. DVT prophylaxis -SCDs only. Avoid Lovenox and heparin with history of TTP. Total time: Approximately 85 minutes. Charges/Coding Visit Charges Inpatient E&M: 47824 Init Hosp L3
--- NOTE | 2024-02-23 05:42 | EX.ED.DYSGE1 ---
HPI History of Present Illness Chief Complaint: Hyperglycemia Informant: patient Narrative Narrative: Patient is a 44-year-old male with history of type 2 diabetes on Trulicity. He was seen earlier this evening secondary to polydipsia and polyuria with concern for elevated blood sugar values as he has not been on his medication. At that time he was found to have a blood sugar of 890 and was in HHS. He was admitted to the hospital but stated that he could not stay as he needed personal items and therefore left AGAINST MEDICAL ADVICE. He states that he went home and collected his personal items that he would need for admission and therefore returns at this time for placement. [facility] Medical History Anxiety Bipolar disorder Depression Diabetes Migraines Smoker Substance abuse TTP (thrombotic thrombocytopenic purpura) Home Medications dulaglutide 0.75 mg/0.5 mL subcutaneous pen injector (Trulicity) 0.75 mg subcut QWEEK 01/06/22 [History Last Taken Unknown] hydrocodone-acetaminophen 5-325mg 5mg-325mg 1 tab PO Q6H PRN pain 3 days #12 tabs 11/30/23 [Rx Last Taken Unknown] Allergy/AdvReac Type Severity Reaction Status Date / Time adhesive Allergy Rash Verified 02/23/24 04:43 dicyclomine HCl [From Bentyl] Allergy Hives Verified 02/23/24 04:43 fentanyl Allergy Hives Verified 02/23/24 04:43 Latex, Natural Rubber Allergy Rash Verified 02/23/24 04:43 methadone Allergy Other Verified 02/23/24 04:43 prednisone Allergy Rash Verified 02/23/24 04:43 tramadol HCl [From Ultram] Allergy Hives Verified 02/23/24 04:43 aspirin AdvReac Other Verified 02/23/24 04:43 ketorolac tromethamine AdvReac Upset Verified 02/23/24 04:43 [From Toradol] Stomach Family History Other Diabetes Surgical History H/O eye surgery Social History household members: spouse Smoking Status: Current every day smoker tobacco type: cigarettes substance use type: former substance user ROS ROS ED Constitutional Constitutional ED: Denies chills or fever(s) ENT ENT ED: Denies sore throat Cardiovascular Cardiovascular: Denies chest pain Respiratory/Chest Respiratory/Chest: Denies cough or dyspnea Gastrointestinal Gastrointestinal: Denies abdominal pain, diarrhea, nausea or vomiting Genitourinary Genitourinary ED: Reports urinary frequency; Denies dysuria or hematuria Musculoskeletal Musculoskeletal: Denies myalgias Integumentary Denies rash Neurologic Neurologic: Denies headache(s) or weakness Hematologic/Lymphatic Hematologic/Lymphatic: Denies easy bleeding or easy bruising EXAM Physical Exam Const Vital Signs: 02/23/24 04:39 02/23/24 05:41 Temperature 98.4 F 98.0 F Temperature Source Oral Pulse Rate 94 89 Respiratory Rate 18 16 Blood Pressure 154/88 H 148/100 H Blood Pressure Mean 110 116 Pulse Ox 95 96 Oxygen Delivery Method Room Air Positive well nourished, well developed and obese General Appearance ED: well developed; Negative for pallor Nutritional Appearance: obese HEENT Reports dry mucous membranes HEENT Narrative: Mucous membranes are dry and tacky without secondary changes to suggest infection Mouth ED: Yes dry mucous membranes Mouth: dry mucous membranes Eyes PERRL and EOMs intact bilaterally General Eye ED: Negative for scleral icterus Neck supple Neck Narrative: No nuchal rigidity or meningeal signs Resp normal respiratory effort and clear to auscultation bilaterally Cardio regular rate and regular rhythm Rate: other Other Details: Radial and carotid pulses are equal and symmetric GI normal to inspection, nondistended, normoactive bowel sounds, non-tender, non-distended and no masses GI Narrative: No voluntary guarding or rigidity or pulsatile mass Auscultation: normoactive bowel sounds Palpation: soft Extremity normal to inspection Neuro oriented x3, CN's II-XII intact bilaterally and no sensory deficits noted Sensorium / Orientation: alert Motor Exam: strength 5/5 throughout Psych mental status grossly normal Skin no rashes or lesions noted and No skin turgor normal Skin Narrative: Skin turgor is increased General Skin Exam: Negative for jaundice or pallor MDM MDM MDM Narrative Medical decision making narrative: Patient presented to the ER after leaving AGAINST MEDICAL ADVICE with persistent polydipsia polyuria and elevated blood sugar. As his recent workup less than 4 hours ago indicated HHS I do not feel need for significant repeat study. Repeat CBC and basic metabolic profile were obtained and confirmed hyperglycemia at 676 yet his anion gap and bicarb are normal going against DKA. Repeat calculated serum osmolality level is still elevated at 323 consistent with HHS. Secondary to this he was placed on an insulin drip and as there is concern his potassium which is normal at this time will significantly drop with correction of blood sugar K riders were started as well. Medicine was once again contacted and informed to return to the hospital and they agree that based on his persistent hyperglycemia and elevated serum osmolality value that he requires insulin drip and admission to the ICU History & Record Review Discussion w/independent historian: Patient Lab Data Attestation: I reviewed the patient's lab results. Labs: Laboratory Results - last 24 hr 02/23/24 02/23/24 04:50 05:30 WBC 9.0 RBC 5.31 Hgb 16.1 Hct 47.0 MCV 88.5 MCH 30.3 MCHC 34.3 RDW Std Deviation 42.5 RDW Coeff of Serafin 13.0 Plt Count 219 MPV 10.9 Immature Gran % (Auto) 0.300 Neut % (Auto) 54.4 Lymph % (Auto) 28.9 [place] % (Auto) 9.4 Eos % (Auto) 6.3 H Baso % (Auto) 0.7 Absolute Neuts (auto) 4.9 Absolute Lymphs (auto) 2.61 Nucleated RBC % 0 Sodium 131 L Potassium 4.2 Chloride 98 Carbon Dioxide 26.0 Anion Gap 7 BUN 15 Creatinine 1.08 Estim Creat Clear Calc 116.09 Est GFR (MDRD) Af Amer 96 Est GFR (MDRD) Non-Af 79 BUN/Creatinine Ratio 13.9 Glucose 676 H* Calcium 9.1 Triglycerides 425 H Cholesterol 194 LDL Cholesterol TNP VLDL Cholesterol TNP HDL Cholesterol 28 L TSH 0.88 POC Glucose > 500 H* Management Discussion w/another healthcare provider: Hospitalist Discharge Plan Dx/Rx/DC Orders Clinical Impression: Hyperosmolar hyperglycemic state (HHS), Type 2 diabetes mellitus, Morbid obesity with BMI of 40.0-44.9, adult Disposition Disposition: [facility] Discharge Date/Time: 02/23/24 06:33
[2024-02-23 05:49] LABS: Anion Gap 7 (5-15); BUN 15 mg/dL (7-18); BUN/Creat Ratio 13.9 RATIO (10-20); Calcium,Total 9.1 mg/dL (8.5-10.1); Chloride 98 mmol/L (98-107); Creatinine, Serum 1.08 mg/dL (0.70-1.30); EST Glomerular Filtration Rate 79 mL/min (>60); Est Glom Filt Rate - Afr Amer 96 mL/min (>60); Estimated Creatinine Clearance 116.09 ml/min; Glucose 676 mg/dL (74-106); Potassium 4.2 mmol/L (3.5-5.1); Sodium Level 131 mmol/L (136-145)
[2024-02-23 05:54] LABS: Bedside Glucose > 500 mg/dL (74-106)
--- NOTE | 2024-02-23 06:19 | ED.RN ---
report called to Sylvie still.
[2024-02-23 06:44] LABS: Amphetamine Urine VISTA NEGATIVE (<1000 ng/mL); Barbiturate Urine VISTA NEGATIVE (< 200 ng/mL); Benzodiazepine Urine VISTA NEGATIVE (< 200 ng/mL); Cocaine Urine VISTA NEGATIVE (< 300 ng/mL); Ecstacy Urine VISTA NEGATIVE (< 500 ng/mL); Methadone Urine VISTA NEGATIVE (< 300 ng/mL); PCP Urine VISTA NEGATIVE (< 25 ng/mL); THC Urine VISTA POSITIVE (< 50 ng/mL); Vista UDS pH Range 6
[2024-02-23 06:46] LABS: Thyroid Stim Hormone (TSH) 0.88 uIU/mL (0.358-3.74)
[2024-02-23] MEDS: KCL 20MEQ in 0.9% NS 20 MEQ/1,000 ML IV.SOLN. 150 MEQ IV (06:49)
[2024-02-23] MEDS: Morphine 2 MG/ML Syringe IV (06:51)
[2024-02-23] MEDS: 0.9% Saline Lock 10 ML Syringe IV (06:51)
[2024-02-23 07:06] LABS: Cholesterol 194 mg/dL (200); High Density Lipoprotein 28 mg/dL; Triglycerides 425 mg/dL
--- NOTE | 2024-02-23 07:08 | PN.HOSP_ITS ---
Hospitalist Note Mr. Velasquez is a 44-year-old white male who presented to the emergency department twice in the last 48 hours for hyperglycemia. He reported about 2 months ago he ran out of his Trulicity and was not able to obtain a refill then noticed persistent elevation in his blood glucose levels accompanied by polyuria, polydipsia, and polyphagia. When checked his blood sugar earlier in the day of presentation he was 890 so he came in for further evaluation. He initially signed out AGAINST MEDICAL ADVICE and then reported back to the emergency depart ment early on the a.m. of 02/23/2024 for further treatment. Vital signs on admission show temperature of 98.4, heart rate 94, respiratory 18, blood pressure is 154/88, pulse ox was 95% on room air. His CBC was completely unremarkable. His differential did show some eosinophilia which appears to have been fluctuating in the past as well. His VBG showed a normal pH. His chemistry panel showed pseudohyponatremia with sodium of 131 and a serum glucose of 676. His renal function was normal 1.08 and his hemoglobin A1c was 8.1. Serum osmolality was obtained and was elevated at 317 he had no ketones in his urine but did have glucosuria. Toxicology screen was positive for cannabis. Acetone level was unremarkable. Lipids were obtained and he has marked hypertriglyceridemia with a triglyceride level of 425. This is to be expected with his marked hyperglycemia. His total cholesterol was 194 with his LDL not able to be calculated. He was initially placed on a insulin drip for HHS howeve r he does not completely meet criteria with negative ketones in his urine and normal baseline mental status. Will give him 3 L of IV fluid and start subcu insulin with basal insulin at 30 units now and then 10 units 3 times daily with meals as well as a sliding scale. I do anticipate the need to uptitrate medications. I also started him on some low-dose lisinopril 10 mg daily as his blood pressure has been persistently elevated and this will assist with renal protection in conjunction with his diabetes. Will order cardiac/carb controlled diet. 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 Depending on progression over the next 24 hours patient may be ready for discharge tomorrow but will need to continue to monitor blood sugars. I would like him to follow-up with endocrinology after discharge and will make a referral.
[2024-02-23] MEDS: Lactated Ringers 1,000 ML 250 ML IV ×2 (07:45→11:21)
[2024-02-23] MEDS: Insulin Glargine-YFGN 100 UNIT/ML Pen 30 UNIT SC (07:59)
[2024-02-23] MEDS: Insulin Lispro 100 UNIT/ML INSULN.PEN 10 UNIT SC ×2 (07:59→11:23)
[2024-02-23] MEDS: Insulin Lispro 100 UNIT/ML INSULN.PEN SC ×2 (08:01→11:22)
[2024-02-23 08:26] LABS: Bedside Glucose > 500 mg/dL (74-106)
[2024-02-23 08:26] LABS: Bedside Glucose 351 mg/dL (74-106)
--- NOTE | 2024-02-23 09:32 | CASEMGMT ---
FERMIN RUTH Assessment Face to Face with patient for initial transition planning/care coordination assessment. FERMIN RUTH introduced self and role at [facility], pt voices understanding. Pt is A&Ox4 and is resting comfortably in bed and is calm. Care providers, pharmacy, and demographics verified. Admitting dx: HONK d/t Medical Noncompliance LACE Strata: 3 PCP: No PCP. Provider list given Specialists: Denies. Pt plans to f/u with Dr. Garza after DC. Information given and Dr. Reyes states that she will make referral Preferred [facility]acy: [facility] Insurance: [employer] Prescription Benefit: Yes LNOK: Alycia Adrian (W) Living Arrangements: Pt lives with his and 1 y/o daughter in a single story home with a flat entrance ADLs/IADLs: Ind Transportation: Self DME: Pt states that he lost his previous BGM while moving locations. Pt states that he is aware of the BGM kits at and states that he gotten them from there before. Pt plans to buy this at after DC and says that he can afford this. Pt denies further issues regarding this. Denies all other DME uses or needs HHC/SNF: Denies history or needs Pt?s goal: home with BGM and f/u with Endocrinology to better manage DM Plan: Pt denies home going needs at this time. Pt states that he plans to buy a new BGM with supplies from once he DC from [facility]. Pt states that he plans to follow with Dr. Garza after DC. Pt denies further questions or concerns at this time. CM to follow for safe DC from [facility]. Rafael Parkinson RN, CM
[2024-02-23 10:10] LABS: Hemoglobin A1c 8.2 % (3.8-5.6)
[2024-02-23 10:40] LABS: Bedside Glucose 271 mg/dL (74-106)
[2024-02-23] MEDS: Enoxaparin 40 MG/0.4 ML Syringe SC (11:29)
[2024-02-23 11:35] LABS: Bedside Glucose 258 mg/dL (74-106)
--- NOTE | 2024-02-23 15:52 | PCM.HOSP.N ---
Hospitalist Note Patient has elected to sign out AMA. He states that he has to get his her antiseizure medications. I will go ahead and send 1 month supply of Lantus and have encouraged him to follow-up with Dr. Garza as an outpatient but I will not discharge him as he is still having fluctuating blood sugars blood sugars and I suspect we will need to titrate medications more. I feel that if we do not send him with any Lantus he will be back in with a readmission. He was given Dr. Garza contact information and actually instructed to call today but it appears he has not yet done that. Lantus prescription for 1 month supply was sent to the local pharmacy and the patient signed AMA paperwork.
== END 2024-02-23 16:45 | disposition left against medical advice (07) ==
LOC: ED 05:42 → ICU 06:51
PROVIDERS: Admitting Provider Internal Medicine; Emergency Provider Emergency Medicine; Visit Provider Internal Medicine
DX: E11.00 Type 2 diabetes mellitus with hyperosmolarity without nonketotic hyperglycemic-hyperosmolar coma (NKHHC) (principal); M31.19 Other thrombotic microangiopathy; F31.9 Bipolar disorder, unspecified; E66.01 Morbid (severe) obesity due to excess calories; Z68.41 Body mass index [BMI] 40.0-44.9, adult; Z79.85 Long-term (current) use of injectable non-insulin antidiabetic drugs; F17.210 Nicotine dependence, cigarettes, uncomplicated
CPT/HCPCS: 80048; 80061; 80307; 81001; 82009; 82803; 82962; 83036; 83605; 83735; 83930; 84100; 84443; 85025; 96360; 96361; 96365; 96366; 96368; 96372; 96375; 97802; 99221; 99283; 99284; J7030; J7120; A4216; G0378

== ENCOUNTER 2024-03-02 22:27 | Emergency (ER) | payer MEDICAID, SELFPAY ==
[2024-03-02 22:28] VITALS: BP 135/79; PULSE 93; RESP 20; TEMP 35.8; O2SAT 98; BMI 41.1
[2024-03-02 22:58] LABS: Absolute Lymphocyte Count 3.22 X10^3/uL (0.83-4.51); Absolute Neutrophil Count 5.4 X10^3/uL (2.0-7.7); Basophil# 0.09 X10^3/uL; Basophil% 0.9 % (0-1); Eosinophil# 0.54 X10^3/uL; Eosinophils% 5.4 % (0-5); Hematocrit 45.7 % (40-54); Hemoglobin 15.7 g/dL (13.0-16.5); Lymphocyte # 3.22 X10^3/ul (0.83-4.51); Mean Corp Hgb Conc 34.4 g/dL (32-36); Mean Corpuscular Hgb 30.4 pg (27.0-32.0); Mean Corpuscular Volume 88.4 fL (80-94); Mean Platelet Vol. 10.6 fl (6.2-12.0); Monocyte# 0.81 X10^3/uL; NRBC Flagged by Analyzer 0 % (0-5); Neutrophil # 5.39 X10^3/uL (2.7-7.7); Neutrophil % 53.5 % (47-70); Platelet Count 223 K/mm3 (150-450); RBC Distribution Width SD 42.2 fl (35.1-43.9); Red Blood Count 5.17 M/mm3 (4.6-6.2); White Blood Count 10.1 K/mm3 (4.4-11.0)
[2024-03-02] MEDS: 0.9% Normal Saline (1000mL) 1,000 ML 999 ML IV (22:58)
--- NOTE | 2024-03-02 23:00 | RAD_ITS ---
INDICATION: cough EXAMINATION/TECHNIQUE: X-RAY - XR Chest 2 Views COMPARISON: None. FINDINGS: LINES/DEVICES: None. LUNGS: No consolidation, edema or effusion. Mild bilateral peribronchial thickening, best seen on lateral view. No pneumothorax. MEDIASTINUM AND CARDIOVASCULAR STRUCTURES: Cardiac silhouette not enlarged. BONES AND SOFT TISSUES: Unremarkable. RAD/Chest PA and Lateral IMPRESSION: Bilateral peribronchial thickening as can be seen with bronchitis/bronchiolitis. No radiographic evidence of consolidative pneumonia. Electronically Signed: James Dewitt MD at 23:18 EDT ,
[2024-03-02 23:13] LABS: Blood Gas Specimen Type VEN; O2 Delivery Device Not entered; SITE Not entered; VBG BASE EXCESS -1 mmol/L (-1.0-3.5); VBG Bicarbonate 24 mmol/L (22-26); VBG PO2 47 mmHg (25-40); VBG SO2 82 % (50-70); VBG TCO2 25 mmol/L (23-33); VBG pCO2 40.4 mmHg (41-51); VBG pH 7.38 (7.32-7.42)
[2024-03-02 23:35] LABS: Bedside Glucose > 500 mg/dL (74-106)
--- NOTE | 2024-03-02 23:56 | EX.ED.DYSGE1 ---
HPI History of Present Illness Chief Complaint: Hyperglycemia Informant: patient Narrative Narrative: Patient is a 44-year-old male with past medical history of insulin-dependent diabetes. He was recently seen in the hospital secondary to hyperglycemia and found to be in HHS and was admitted. He states since returning home he has been monitoring his blood sugars more closely and taking his medication as directed. He states in the last 1 to 2 days however he has had return of increased urination and increased thirst and his blood sugars and out is reading high and secondary to this he comes in for repeat evaluation [facility] Medical History (Updated 03/04/24 @ 02:[address] Desmond Mendoza, DO) Vision problems History of ulcer disease Hearing problem History of blood transfusion Back problem Acute arthritis Seasonal allergies Bipolar disorder Substance abuse Anxiety Depression Smoker Migraines Diabetes TTP (thrombotic thrombocytopenic purpura) Home Medications ?Medication ?Instructions ?Recorded ?Last Taken ?Type insulin glargine-yfgn 100 unit/mL 30 unit (0.3 mL) subcut DAILY #15 02/23/24 Unknown Rx (3 mL) subcutaneous pen mL pen needle, diabetic 29 gauge x #100 ea 02/23/24 Unknown Rx 1/2 dulaglutide 0.75 mg/0.5 mL 0.75 mg (0.5 mL) subcut QWEEK #2 mL 02/28/24 Unknown Rx subcutaneous pen injector flash glucose scanning reader #1 ea 02/28/24 Unknown Rx (FreeStyle Roxi 2 [place]) flash glucose sensor (FreeStyle #3 ea 02/28/24 Unknown Rx Roxi 2 Sensor kit) lisinopril 10 mg tablet 10 mg PO DAILY #30 tabs 02/28/24 Unknown Rx Allergy/AdvReac Type Severity Reaction Status Date / Time adhesive Allergy Rash Verified 02/28/24 10:33 dicyclomine HCl (From Bentyl) Allergy Hives Verified 02/28/24 10:33 fentanyl Allergy Hives Verified 02/28/24 10:33 Latex, Natural Rubber Allergy Rash Verified 02/28/24 10:33 methadone Allergy Other Verified 02/28/24 10:33 prednisone Allergy Rash Verified 02/28/24 10:33 tramadol HCl (From Ultram) Allergy Hives Verified 02/28/24 10:33 aspirin AdvReac Other Verified 02/28/24 10:33 ketorolac tromethamine (From AdvReac Upset Verified 02/28/24 10:33 Toradol) Stomach Family History (Updated 02/28/24 @ 10:48 by Vaishnavi Paz MA) Mother Diabetes Heart disease Cancer Asthma Anxiety Arthritis Surgical History H/O eye surgery Social History (Updated 02/28/24 @ 10:39 by Vaishnavi Paz MA) household members: significant other, children and other details: [place] housing: house current occupational status: unemployed Smoking Status: Heavy Smoker (>10/day) Tobacco: How many years used: 30 alcohol intake: never substance use type: former substance user and marijuana what type of physical activity do you participate in: walking seatbelt use: always do you feel safe at home: Yes ROS ROS ED Constitutional Constitutional ED: Denies chills or fever(s) ENT ENT ED: Denies sore throat Cardiovascular Cardiovascular: Denies chest pain Respiratory/Chest Respiratory/Chest: Denies cough or dyspnea Gastrointestinal Gastrointestinal: Denies abdominal pain, diarrhea, nausea or vomiting Genitourinary Genitourinary ED: Reports urinary frequency; Denies dysuria or hematuria Musculoskeletal Musculoskeletal: Denies myalgias Integumentary Denies rash Neurologic Neurologic: Denies headache(s), paresthesias or weakness Hematologic/Lymphatic Hematologic/Lymphatic: Denies easy bleeding or easy bruising EXAM Physical Exam Const Vital Signs: 03/03/24 02:58 Temperature 97.2 F L Pulse Rate 90 Respiratory Rate 16 Blood Pressure 138/91 H Blood Pressure Mean 106 Pulse Ox 95 Positive well nourished, well developed and obese General Appearance ED: well developed; Negative for pallor Nutritional Appearance: obese HEENT Reports dry mucous membranes HEENT Narrative: Mucous membranes are dry and tacky No tongue or lip swelling no oral lesions no airway edema or compromise No secondary changes to suggest infection Mouth ED: Yes dry mucous membranes Mouth: dry mucous membranes Eyes PERRL and EOMs intact bilaterally General Eye ED: Negative for scleral icterus Neck supple Neck Narrative: No nuchal rigidity or meningeal signs Chest Wall palpation of chest normal Resp normal respiratory effort and clear to auscultation bilaterally Cardio regular rate and regular rhythm GI normal to inspection, nondistended, normoactive bowel sounds, non-tender, non-distended and no masses Auscultation: normoactive bowel sounds Palpation: soft Extremity normal to inspection Neuro oriented x3, CN's II-XII intact bilaterally and no sensory deficits noted Sensorium / Orientation: alert Motor Exam: strength 5/5 throughout Psych mental status grossly normal Skin no rashes or lesions noted and no wounds Skin Narrative: Skin turgor is increased General Skin Exam: Negative for jaundice or pallor MDM MDM MDM Narrative Medical decision making narrative: Patient presented to the ER with overall stable vitals and in no acute distress. He reported polydipsia and polyuria and his blood sugar was just reading high. Differential diagnosis is for DKA versus HHS versus hyperglycemia. There is also concern that patient may be in acute kidney injury have electrolyte abnormalities or even potential pneumonia as a cause of his symptoms. A basic workup was obtained which showed blood sugar to be elevated that he did not have any acetone present his serum bicarb and anion gap are normal going against DKA and his venous blood gas pH is normal at 7.38. His calculated serum osmolality is also below 320 going against HHS and he does not have signs of infection in his urine or on his chest x-ray and there are no derangement such as acute kidney injury. After receiving IV fluids his glucose reduced to 453. At this time he does not have DKA or HHS but he is simply hyperglycemic and a diabetic and therefore he will be given insulin but as there are no signs of kidney damage or infectious process or DKA or HHS he does not need admitted and he can be discharged home Lab Data Attestation: I reviewed the patient's lab results. Labs: Laboratory Results - last 24 hr 03/03/24 02:36 POC Glucose 453 H* ABG Data ABG results: ABG 03/02/24 23:08 Specimen Type ROBERTA Sample Site Not entered VBG pH 7.38 VBG pO2 47 H VBG HCO3 24 VBG Total CO2 25 VBG O2 Sat (Calc) 82 H VBG Base Excess -1 POC Mix VBG pCO2 Pt Tmp 40.4 L O2 Delivery Device Not entered Radiography Diagnostic Testing: Clinical Impression(s) from Imaging Studies Chest X-Ray 03/02/24 23:00 IMPRESSION: Bilateral peribronchial thickening as can be seen with bronchitis/bronchiolitis. No radiographic evidence of consolidative pneumonia. Electronically Signed: James Dewitt MD at 23:18 EDT , Chest x-ray as interpreted by the emergency medicine physician reveals bilateral inflammatory changes consistent with bronchitis without acute infiltrate pneumothorax or pleural effusion Discharge Plan Triage Chief Complaint: Hyperglycemia ED Provider: Desmond Mendoza Dx/Rx/DC Orders Clinical Impression: Type 2 diabetes mellitus, Acute hyperglycemia, Morbid obesity with BMI of 40.0-44.9, adult Instructions: Diabetes: Caring for Your Body, ED Diabetic Hyperglycemia Prescriptions: No Action (DME) FreeStyle Roxi 2 Sensor Kit See Rx Instructions .Route Qty: 3 2RF Rx Instructions: As directed (DME) FreeStyle Roxi 2 [place] Misc See Rx Instructions .Route Qty: 1 0RF Rx Instructions: As directed lisinopril 10 mg tablet 10 mg PO DAILY Qty: 30 2RF dulaglutide 0.75 mg/0.5 mL pen injector 0.75 mg subcut QWEEK Qty: 2 0RF insulin glargine-yfgn 100 unit/mL (3 mL) Insulin Pen 30 unit subcut DAILY Qty: 15 0RF (DME) pen needle, diabetic 29 gauge x 1/2 needle See Rx Instructions .Route Qty: 100 0RF Rx Instructions: As directed Primary Care Provider: Care Physician,No Primary Referrals: Polo Ramirez MD [Med Staff - Active Staff] - Care Physician,No Primary [Primary Care Provider] - Print Language: Bulgarian Disposition Disposition: Home, Self Care Discharge Date/Time: 03/03/24 03:04
[2024-03-03 00:14] LABS: Anion Gap 7 (5-15); BUN 18 mg/dL (7-18); BUN/Creat Ratio 15.1 RATIO (10-20); Calcium,Total 8.4 mg/dL (8.5-10.1); Chloride 94 mmol/L (98-107); Creatinine, Serum 1.19 mg/dL (0.70-1.30); EST Glomerular Filtration Rate 71 mL/min (>60); Est Glom Filt Rate - Afr Amer 86 mL/min (>60); Estimated Creatinine Clearance 105.31 ml/min; Glucose 705 mg/dL (74-106); Magnesium 1.8 mg/dL (1.6-2.6); Potassium 4.8 mmol/L (3.5-5.1); Sodium Level 126 mmol/L (136-145)
[2024-03-03 00:17] VITALS: BP 137/82; PULSE 95; RESP 18; O2SAT 93
[2024-03-03] MEDS: 0.9% Normal Saline (1000mL) 1,000 ML 999 ML IV (00:17)
[2024-03-03 00:45] LABS: Osmolality, Serum 309 mOsm/KG (275-295)
[2024-03-03 00:53] LABS: Bacteria 0 SEEN /hpf (None Seen); Mucous, Urine 0 SEEN /hpf (<or=2+); Red Blood Cells-Urine 0 SEEN /hpf (0-5); Squamous Epithelial Cells - UA 0 SEEN /hpf (0-5); White Blood Cells 0 SEEN /hpf (0-5)
[2024-03-03 01:02] LABS: Color, Urine Yellow (Yellow); Glucose, Dipstick 1000 mg/dl (Normal); Ketone-Dipstick Negative (Negative); Leukocyte Esterase-Dipstick Negative /ul (Negative); Nitrite-Dipstick Negative (Negative); Occult Blood-Urine Negative /ul (Negative); Protein-Dipstick Negative (Negative); Specific Gravity, Urine 1.005 (1.002-1.030); Urine Bilirubin Dipstick Negative (Negative); Urine Clarity Clear (Clear); Urine Urobilinogen Normal (Normal)
[2024-03-03 02:00] VITALS: BP 132/93; PULSE 61; RESP 15; RESP 16; O2SAT 93; O2SAT 99
[2024-03-03 02:57] LABS: Bedside Glucose 453 mg/dL (74-106)
[2024-03-03 02:58] VITALS: BP 138/91; PULSE 90; RESP 16; TEMP 36.2; O2SAT 95
[2024-03-03] MEDS: Insulin Lispro 100 UNIT/ML INSULN.PEN 12 UNIT SC (02:58)
== END 2024-03-03 03:04 | disposition home or self-care (01) ==
PROVIDERS: Emergency Provider Emergency Medicine; Visit Provider Emergency Medicine
DX: E11.65 Type 2 diabetes mellitus with hyperglycemia (principal); E66.01 Morbid (severe) obesity due to excess calories; Z68.41 Body mass index [BMI] 40.0-44.9, adult; F17.200 Nicotine dependence, unspecified, uncomplicated
CPT/HCPCS: 71046; 80048; 81001; 82009; 82803; 82962; 83735; 83930; 85025; 96360; 96361; 99282; J7030; A4216

== ENCOUNTER 2024-03-08 23:16 | Emergency (ER) | payer MEDICAID, SELFPAY ==
[2024-03-08 23:17] VITALS: BP 122/69; PULSE 96; RESP 18; TEMP 36.1; O2SAT 95; BMI 39.6
[2024-03-09] LABS: Bedside Glucose > 500 mg/dL (74-106)
[2024-03-09 00:33] LABS: Anion Gap 11 (5-15); BUN 25 mg/dL (7-18); BUN/Creat Ratio 19.1 RATIO (10-20); Calcium,Total 9.4 mg/dL (8.5-10.1); Chloride 92 mmol/L (98-107); Creatinine, Serum 1.31 mg/dL (0.70-1.30); EST Glomerular Filtration Rate 63 mL/min (>60); Est Glom Filt Rate - Afr Amer 77 mL/min (>60); Estimated Creatinine Clearance 93.81 ml/min; Glucose 793 mg/dL (74-106); Potassium 4.6 mmol/L (3.5-5.1); Sodium Level 124 mmol/L (136-145)
[2024-03-09 00:43] LABS: Absolute Neutrophil Count 4.5 X10^3/uL (2.0-7.7); Basophil# 0.11 X10^3/uL; Basophil% 1.2 % (0-1); Eosinophil# 0.38 X10^3/uL; Eosinophils% 4.2 % (0-5); Hemoglobin 15.6 g/dL (13.0-16.5); Mean Corp Hgb Conc 34.7 g/dL (32-36); Mean Corpuscular Hgb 29.9 pg (27.0-32.0); Mean Corpuscular Volume 86.4 fL (80-94); Mean Platelet Vol. 11.9 fl (6.2-12.0); Monocyte# 1.04 X10^3/uL; Monocyte% 11.4 % (0-10); NRBC Flagged by Analyzer 0 % (0-5); Neutrophil # 4.54 X10^3/uL (2.7-7.7); Neutrophil % 49.9 % (47-70); Platelet Count 228 K/mm3 (150-450); RBC Distribution Width CV 12.8 % (11.6-14.6); RBC Distribution Width SD 40.4 fl (35.1-43.9); Red Blood Count 5.21 M/mm3 (4.6-6.2); White Blood Count 9.1 K/mm3 (4.4-11.0)
[2024-03-09] MEDS: 0.9% Normal Saline (1000mL) 1,000 ML 999 ML IV ×2 (00:52→02:01)
[2024-03-09 00:56] LABS: AST(SGOT) 29 U/L (15-37); Alanine Aminotransfer ALT/SGPT 99 U/L (16-61); Albumin, Serum 3.9 g/dL (3.2-5.0); Alkaline Phosphatase 176 U/L (45-117); Bilirubin, Direct 0.24 mg/dL (0.00-0.30); Globulin 4.1 g/dL (2.2-4.2); Lipase 47 U/L (13-75)
[2024-03-09 01:06] LABS: Blood Gas Specimen Type VEN; O2 Delivery Device Not entered; SITE Not entered; VBG BASE EXCESS -1 mmol/L (-1.0-3.5); VBG Bicarbonate 24 mmol/L (22-26); VBG PO2 79 mmHg (25-40); VBG SO2 96 % (50-70); VBG TCO2 25 mmol/L (23-33); VBG pCO2 37.9 mmHg (41-51)
[2024-03-09 01:15] VITALS: BP 135/72; PULSE 78; RESP 20; O2SAT 92
[2024-03-09 01:38] LABS: Osmolality, Serum 312 mOsm/KG (275-295)
[2024-03-09 02:54] LABS: Bedside Glucose 498 mg/dL (74-106)
--- NOTE | 2024-03-09 02:54 | EX.ED.DYSGE1 ---
HPI History of Present Illness Chief Complaint: Hyperglycemia Informant: patient Narrative Narrative: Patient is a 44-year-old male with a past medical history of insulin-dependent type 2 diabetes. He states he has been taking his medication as directed but despite this his sugars have been running high he has been having increased thirst and increased urination. He was seen in the ER earlier this month for similar event and had to be admitted as he was in [facility]. The patient states he is concerned he is progressing to this once again and as he is concerned he may need admitted secondary to his persistent symptoms comes in for evaluation. He denies any recent steroid use. He states that there has been no sick symptoms such as abdominal pain cough vomiting diarrhea or dysuria [facility] Medical History (Updated 03/09/24 @ 04:[address] Desmond Mendoza, ) Vision problems History of ulcer disease Hearing problem History of blood transfusion Back problem Acute arthritis Seasonal allergies Bipolar disorder Substance abuse Anxiety Depression Smoker Migraines Diabetes TTP (thrombotic thrombocytopenic purpura) Home Medications ?Medication ?Instructions ?Recorded ?Last Taken ?Type insulin glargine-yfgn 100 unit/mL 30 unit (0.3 mL) subcut DAILY #15 02/23/24 Unknown Rx (3 mL) subcutaneous pen mL pen needle, diabetic 29 gauge x #100 ea 02/23/24 Unknown Rx 1/2 dulaglutide 0.75 mg/0.5 mL 0.75 mg (0.5 mL) subcut QWEEK #2 mL 02/28/24 Unknown Rx subcutaneous pen injector flash glucose scanning reader #1 ea 02/28/24 Unknown Rx (FreeStyle Roxi 2 [place]) flash glucose sensor (FreeStyle #3 ea 02/28/24 Unknown Rx Roxi 2 Sensor kit) lisinopril 10 mg tablet 10 mg PO DAILY #30 tabs 02/28/24 Unknown Rx Allergy/AdvReac Type Severity Reaction Status Date / Time adhesive Allergy Rash Verified 03/08/24 23:18 dicyclomine HCl (From Bentyl) Allergy Hives Verified 03/08/24 23:18 fentanyl Allergy Hives Verified 03/08/24 23:18 Latex, Natural Rubber Allergy Rash Verified 03/08/24 23:18 methadone Allergy Other Verified 03/08/24 23:18 prednisone Allergy Rash Verified 03/08/24 23:18 tramadol HCl (From Ultram) Allergy Hives Verified 03/08/24 23:18 aspirin AdvReac Other Verified 03/08/24 23:18 ketorolac tromethamine (From AdvReac Upset Verified 03/08/24 23:18 Toradol) Stomach Family History (Updated 02/28/24 @ 10:48 by Vaishnavi Paz MA) Mother Diabetes Heart disease Cancer Asthma Anxiety Arthritis Surgical History H/O eye surgery Social History (Updated 02/28/24 @ 10:39 by Vaishnavi Paz MA) household members: significant other, children and other details: [place] housing: house current occupational status: unemployed Smoking Status: Heavy Smoker (>10/day) Tobacco: How many years used: 30 alcohol intake: never substance use type: former substance user and marijuana what type of physical activity do you participate in: walking seatbelt use: always do you feel safe at home: Yes ROS ROS ED Constitutional Constitutional ED: Denies chills or fever(s) Eyes Eyes: Denies change in vision ENT ENT ED: Denies rhinorrhea or sore throat Cardiovascular Cardiovascular: Denies chest pain Respiratory/Chest Respiratory/Chest: Denies cough or dyspnea Gastrointestinal Gastrointestinal: Denies abdominal pain, diarrhea, nausea or vomiting Genitourinary Genitourinary ED: Reports urinary frequency; Denies dysuria Musculoskeletal Musculoskeletal: Denies myalgias Integumentary Denies rash Neurologic Neurologic: Denies headache(s) or weakness Hematologic/Lymphatic Hematologic/Lymphatic: Denies easy bleeding or easy bruising EXAM Physical Exam Const Vital Signs: 03/08/24 23:17 03/09/24 00:04 03/09/24 01:15 Temperature 97 F L Temperature Source Temporal Pulse Rate 96 78 Respiratory Rate 18 20 H Respiratory Effort Normal Non-Labored Respiratory Pattern Normal Blood Pressure 122/69 H 135/72 H Blood Pressure Mean 86 93 Pulse Ox 95 92 Oxygen Delivery Method Room Air Room Air 03/09/24 03:00 03/09/24 03:10 Temperature 97.1 F L Temperature Source Pulse Rate 79 79 Respiratory Rate 16 18 Respiratory Effort Respiratory Pattern Blood Pressure 128/68 H 124/74 H Blood Pressure Mean 88 90 Pulse Ox 99 99 Oxygen Delivery Method Positive well nourished, well developed and obese General Appearance ED: well developed; Negative for pallor Nutritional Appearance: obese HEENT Reports dry mucous membranes HEENT Narrative: Mucous membranes are dry and tacky but show no secondary changes to suggest infection No airway edema or compromise noted Mouth ED: Yes dry mucous membranes Mouth: dry mucous membranes Eyes PERRL and EOMs intact bilaterally General Eye ED: Negative for scleral icterus Neck supple Neck Narrative: No nuchal rigidity or meningeal signs Chest Wall palpation of chest normal Resp normal respiratory effort and clear to auscultation bilaterally Resp Narrative: No nasal flaring retractions tachypnea or accessory muscle use Cardio regular rate and regular rhythm GI normal to inspection, nondistended, normoactive bowel sounds, non-tender, non-distended and no masses GI Narrative: No voluntary guarding or rigidity or pulsatile mass Auscultation: normoactive bowel sounds Palpation: soft Extremity normal to inspection Neuro oriented x3, CN's II-XII intact bilaterally and no sensory deficits noted Sensorium / Orientation: alert Motor Exam: strength 5/5 throughout Psych mental status grossly normal Skin no rashes or lesions noted and no wounds Skin Narrative: Skin turgor is increased General Skin Exam: Negative for jaundice or pallor MDM MDM MDM Narrative Medical decision making narrative: Patient arrived to the ER with stable vitals and overall nonfocal exam. He reported his blood sugars have been running high and had polydipsia and polyuria. Differential diagnosis is for acute hyperglycemia and diabetes versus HHS versus DKA versus electrolyte abnormality versus acute kidney injury. Secondary to this a basic workup was obtained. The patient's pH is normal at 7.4 his anion gap is normal he does not have a decrease to his bicarbonate going against DKA. His serum osmolality level is under 320 going against HHS. Further laboratory studies did not show any signs of DKA or severe electrolyte abnormality. The patient's blood sugar is elevated at 793 consistent with his history of hyperglycemia but there are no further findings to suggest that is causing any type of true metabolic derangement or secondary to a systemic infection. Therefore at this time will be given 2 L of IV fluid and a dose of long-acting Lantus as well as rapid acting lispro. This will produce his blood sugar value but as he does not have signs for HHS or DKA or systemic infection or acute kidney injury or severe electrolyte abnormality there is no need for admission and he is otherwise safe for discharge History & Record Review Discussion w/independent historian: Patient Lab Data Attestation: I reviewed the patient's lab results. Labs: Laboratory Results - last 24 hr 03/08/24 03/08/24 03/09/24 23:41 23:45 00:55 WBC 9.1 RBC 5.21 Hgb 15.6 Hct 45.0 MCV 86.4 MCH 29.9 MCHC 34.7 RDW Std Deviation 40.4 RDW Coeff of Serafin 12.8 Plt Count 228 MPV 11.9 Immature Gran % (Auto) 0.300 Neut % (Auto) 49.9 Lymph % (Auto) 33.0 [place] % (Auto) 11.4 H Eos % (Auto) 4.2 Baso % (Auto) 1.2 H Absolute Neuts (auto) 4.5 Absolute Lymphs (auto) 3.00 Nucleated RBC % 0 Sodium 124 L Potassium 4.6 Chloride 92 L Carbon Dioxide 21.0 Anion Gap 11 BUN 25 H Creatinine 1.31 H Estim Creat Clear Calc 93.81 Est GFR (MDRD) Af Amer 77 Est GFR (MDRD) Non-Af 63 BUN/Creatinine Ratio 19.1 Glucose 793 H* Serum Osmolality 312 H Calcium 9.4 Total Bilirubin 0.80 Direct Bilirubin 0.24 AST 29 ALT 99 H Alkaline Phosphatase 176 H Total Protein 8.0 Albumin 3.9 Globulin 4.1 Lipase 47 Acetone Level NEGATIVE POC Glucose > 500 H* 03/09/24 02:36 WBC RBC Hgb Hct MCV MCH MCHC RDW Std Deviation RDW Coeff of Serafin Plt Count MPV Immature Gran % (Auto) Neut % (Auto) Lymph % (Auto) [place] % (Auto) Eos % (Auto) Baso % (Auto) Absolute Neuts (auto) Absolute Lymphs (auto) Nucleated RBC % Sodium Potassium Chloride Carbon Dioxide Anion Gap BUN Creatinine Estim Creat Clear Calc Est GFR (MDRD) Af Amer Est GFR (MDRD) Non-Af BUN/Creatinine Ratio Glucose Serum Osmolality Calcium Total Bilirubin Direct Bilirubin AST ALT Alkaline Phosphatase Total Protein Albumin Globulin Lipase Acetone Level POC Glucose 498 H* ABG Data ABG results: ABG 03/09/24 01:02 Specimen Type ROBERTA Sample Site Not entered VBG pH 7.40 VBG pO2 79 H VBG HCO3 24 VBG Total CO2 25 VBG O2 Sat (Calc) 96 H VBG Base Excess -1 POC Mix VBG pCO2 Pt Tmp 37.9 L O2 Delivery Device Not entered Discharge Plan Triage Chief Complaint: Hyperglycemia ED Provider: Desmond Mendoza Dx/Rx/DC Orders Clinical Impression: Type 2 diabetes mellitus, Acute hyperglycemia, Obesity (BMI 30.0-34.9), Nicotine addiction Instructions: ED Diabetic Hyperglycemia, ED Diet: Diabetes Prescriptions: No Action (DME) FreeStyle Roxi 2 Sensor Kit See Rx Instructions .Route Qty: 3 2RF Rx Instructions: As directed (DME) FreeStyle Roxi 2 [place] Misc See Rx Instructions .Route Qty: 1 0RF Rx Instructions: As directed lisinopril 10 mg tablet 10 mg PO DAILY Qty: 30 2RF dulaglutide 0.75 mg/0.5 mL pen injector 0.75 mg subcut QWEEK Qty: 2 0RF insulin glargine-yfgn 100 unit/mL (3 mL) Insulin Pen 30 unit subcut DAILY Qty: 15 0RF (DME) pen needle, diabetic 29 gauge x 1/2 needle See Rx Instructions .Route Qty: 100 0RF Rx Instructions: As directed Primary Care Provider: Care Physician,No Primary Referrals: Polo Ramirez MD [Med Staff - Active Staff] - Care Physician,No Primary [Primary Care Provider] - Print Language: Faroese Disposition Disposition: Home, Self Care Discharge Date/Time: 03/09/24 03:11
[2024-03-09 03:00] VITALS: BP 128/68; PULSE 79; RESP 16; O2SAT 99
[2024-03-09] MEDS: Insulin Lispro 100 UNIT/ML INSULN.PEN 10 UNIT SC (03:05)
[2024-03-09] MEDS: Insulin Glargine-YFGN 100 UNIT/ML Pen 25 UNIT SC (03:06)
[2024-03-09 03:10] VITALS: BP 124/74; PULSE 79; RESP 18; TEMP 36.2; O2SAT 99
== END 2024-03-09 03:11 | disposition home or self-care (01) ==
PROVIDERS: Emergency Provider Emergency Medicine; Visit Provider Emergency Medicine
DX: E11.65 Type 2 diabetes mellitus with hyperglycemia (principal); F17.200 Nicotine dependence, unspecified, uncomplicated; E66.9 Obesity, unspecified
CPT/HCPCS: 80048; 80076; 82009; 82803; 82962; 83690; 83930; 85025; 96360; 96361; 99282; J7030; A4216

== ENCOUNTER 2024-03-10 14:43 | Emergency (ER) | payer MEDICAID, SELFPAY ==
[2024-03-10 14:43] VITALS: BP 134/85; PULSE 105; RESP 16; TEMP 36.6; O2SAT 98; BMI 40.1
--- NOTE | 2024-03-10 14:57 | EX.ED.DYSGE1 ---
HPI <ALBIN Antoine - Last Filed: 03/10/24 17:58> History of Present Illness Chief Complaint: Hyperglycemia Narrative Narrative: 44-year-old male with type 2 diabetes was here last night in the emergency room for hyperglycemia. He was treated with IV fluids and insulin and states his sugars were about 300 when he left at 3:30 AM. Since then he states he has had water, Gatorade 0 and diet pop but his sugars are reading high again. He feels lightheaded and has polyuria and polydipsia. He takes Lantus 30 units twice a day. He has been out of [facility] since December 2023 due to prior authorization issues. 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 [facility] <ALBIN Antoine - Last Filed: 03/10/24 17:58> [facility] Medical History (Updated 03/10/24 @ 16:42 by ALBIN Antoine) Vision problems History of ulcer disease Hearing problem History of blood transfusion Back problem Acute arthritis Seasonal allergies Bipolar disorder Substance abuse Anxiety Depression Smoker Migraines Diabetes TTP (thrombotic thrombocytopenic purpura) Home Medications ?Medication ?Instructions ?Recorded ?Last Taken ?Type pen needle, diabetic 29 gauge x #100 ea 02/23/24 Unknown Rx 1/2 flash glucose scanning reader #1 ea 02/28/24 Unknown Rx (FreeStyle Roxi 2 [place]) flash glucose sensor (FreeStyle #3 ea 02/28/24 Unknown Rx Roxi 2 Sensor kit) lisinopril 10 mg tablet 10 mg PO DAILY #30 tabs 02/28/24 Unknown Rx dulaglutide 1.5 mg/0.5 mL 1.5 mg subcut QWEEK 03/10/24 Unknown History subcutaneous pen injector ([facility]) insulin glargine 100 unit/mL (3 30 unit subcut BID 03/10/24 Unknown History mL) subcutaneous pen (Lantus Solostar U-100 Insulin) Allergy/AdvReac Type Severity Reaction Status Date / Time adhesive Allergy Rash Verified 03/08/24 23:18 dicyclomine HCl (From Bentyl) Allergy Hives Verified 03/08/24 23:18 fentanyl Allergy Hives Verified 03/08/24 23:18 Latex, Natural Rubber Allergy Rash Verified 03/08/24 23:18 methadone Allergy Other Verified 03/08/24 23:18 prednisone Allergy Rash Verified 03/08/24 23:18 tramadol HCl (From Ultram) Allergy Hives Verified 03/08/24 23:18 aspirin AdvReac Other Verified 03/08/24 23:18 ketorolac tromethamine (From AdvReac Upset Verified 03/08/24 23:18 Toradol) Stomach Family History (Updated 02/28/24 @ 10:48 by Vaishnavi Paz MA) Mother Diabetes Heart disease Cancer Asthma Anxiety Arthritis Surgical History H/O eye surgery Social History (Updated 02/28/24 @ 10:39 by Vaishnavi Paz MA) household members: significant other, children and other details: [place] housing: house current occupational status: unemployed Smoking Status: Heavy Smoker (>10/day) Tobacco: How many years used: 30 alcohol intake: never substance use type: former substance user and marijuana what type of physical activity do you participate in: walking seatbelt use: always do you feel safe at home: Yes ROS <ALBIN Antoine - Last Filed: 03/10/24 17:58> ROS ED ROS Narrative Constitutional: Negative for fever, chills, malaise. CVS: Negative for chest pain. Respiratory: Negative for shortness of breath. GI: Negative for abdominal pain, nausea, vomiting. EXAM <ALBIN Antoine - Last Filed: 03/10/24 17:58> Physical Exam Narrative Exam Narrative: CONST: Patient sitting in no acute distress. EYES: Normal inspection. NECK: Normal inspection. RESP: No respiratory distress, CTAB. CVS: Regular rate and rhythm, no murmur, no gallop. SKIN: Color normal, no rash, warm, dry, intact. EXTREMITIES: Normal appearance, no pedal edema. NEURO: Alert and answering questions appropriately. PSYCH: Normal affect. Const Vital Signs: 03/10/24 14:43 03/10/24 15:02 Temperature 98 F Temperature Source Temporal Pulse Rate 105 H Respiratory Rate 16 Respiratory Effort Normal Respiratory Pattern Normal Blood Pressure 134/85 H Blood Pressure Mean 101 Pulse Ox 98 Oxygen Delivery Method Room Air <Dr. Markell Mcconnell DO - Last Filed: 03/10/24 18:52> Physical Exam Const Vital Signs: 03/10/24 14:43 03/10/24 15:02 Temperature 98 F Temperature Source Temporal Pulse Rate 105 H Respiratory Rate 16 Respiratory Effort Normal Respiratory Pattern Normal Blood Pressure 134/85 H Blood Pressure Mean 101 Pulse Ox 98 Oxygen Delivery Method Room Air [facility] <ALBIN Antoine - Last Filed: 03/10/24 17:58> [facility] Narrative Medical decision making narrative: History gathered from: Patient and family Differential: HHS versus DKA versus medication noncompliance Patient presents with persistent hyperglycemia after treatment in the emergency room overnight. He appears well and nontoxic. Vital signs stable. Workup shows glucose of 1000, CO2 22, anion gap 12. He has pseudohyponatremia at 122 (corrected 136). Case was discussed with the hospitalist who states he will manage the fast and long-acting insulin orders. Patient was admitted to the PCU. Patient was admitted and seen by the hospitalist but while still in the ED states he wanted to leave AMA. I spoke with Dr. Velasco over the phone and he recommended giving fast-acting insulin 25 units subcutaneously in the ED and prescribing Humalog pens 25 units prior to each meal and increasing the Lantus to 40 mg twice a day (previously 30 mg twice a day). Patient did not want to stay for second dose fluid was given in the subcu lispro prior to discharge and new prescriptions were called into his pharmacy. Lab Data Attestation: I reviewed the patient's lab results. Labs: Laboratory Results - last 24 hr 03/10/24 03/10/24 03/10/24 15:04 15:16 15:37 WBC 9.8 RBC 5.30 Hgb 16.0 Hct 46.6 MCV 87.9 MCH 30.2 MCHC 34.3 RDW Std Deviation 40.7 RDW Coeff of Serafin 12.6 Plt Count 251 MPV 11.7 Immature Gran % (Auto) 0.300 Neut % (Auto) 54.5 Lymph % (Auto) 32.5 Murray % (Auto) 8.1 Eos % (Auto) 3.6 Baso % (Auto) 1.0 Absolute Neuts (auto) 5.4 Absolute Lymphs (auto) 3.19 Nucleated RBC % 0 Sodium 122 L Potassium 4.7 Chloride 88 L Carbon Dioxide 22.0 Anion Gap 12 BUN 24 H Creatinine 1.23 Estim Creat Clear Calc 100.52 Est GFR (MDRD) Af Amer 83 Est GFR (MDRD) Non-Af 68 BUN/Creatinine Ratio 19.5 Glucose 1000 H* Calcium 10.1 Urine Color Yellow Urine Clarity Clear Urine pH 6.0 Ur Specific [place] 1.010 Urine Protein Negative Urine Glucose (UA) 1000 H Urine Ketones 15 H Urine Occult Blood Negative Urine Nitrite Negative Urine Bilirubin Negative Urine Urobilinogen Normal Ur Leukocyte Esterase Negative Urine RBC 0 SEEN Urine WBC 0 SEEN Ur Squamous Epith Cells 0 SEEN Urine Bacteria 0 SEEN Urine Mucus 0 SEEN Acetone Level NEGATIVE <Dr. Markell Mcconnell, DO - Last Filed: 03/10/24 18:52> MDM MDM Narrative Medical decision making narrative: History gathered from: Patient and family Differential: HHS versus DKA versus medication noncompliance Patient presents with persistent hyperglycemia after treatment in the emergency room overnight. He appears well and nontoxic. Vital signs stable. Workup shows glucose of 1000, CO2 22, anion gap 12. He has pseudohyponatremia at 122 (corrected 136). Case was discussed with the hospitalist who states he will manage the fast and long-acting insulin orders. Patient was admitted to the PCU. Patient was admitted and seen by the hospitalist but while still in the ED states he wanted to leave AMA. I spoke with Dr. Velasco over the phone and he recommended giving fast-acting insulin 25 units subcutaneously in the ED and prescribing Humalog pens 25 units prior to each meal and increasing the Lantus to 40 mg twice a day (previously 30 mg twice a day). Patient did not want to stay for second dose fluid was given in the subcu lispro prior to discharge and new prescriptions were called into his pharmacy. This patient was seen with a PA/GLOBAL CONSUMER SECTOR VICE PRESIDENT Individually assessed they patient including history and physical. I have reviewed everything on the chart that is available and agree with the documentation provided by the PA/GLOBAL CONSUMER SECTOR VICE PRESIDENT including discussion about the assessment, treatment plan, discussion, and return precautions. Patient presenting with hyperglycemia and pseudohyponatremia and apparently after further evaluation he is taking 30 units of Lantus nightly. He is not taking anything in between. He states is not eating much but he is drinking plenty of water. Patient lab work shows his glucose is 1000. We recommended admission to control his blood sugars but after the admission the patient wanted to sign out AMA. The hospitalist requested we provide a prescription but was for Humalog 25 units before each meal and increase the Lantus to 40 twice daily. Patient signed out AGAINST MEDICAL ADVICE and acknowledges severe disability, injury or given that his poorly controlled blood sugar. He acknowledges understanding. Return precautions were discussed. Lab Data Labs: Laboratory Results - last 24 hr 03/10/24 03/10/24 03/10/24 15:04 15:16 15:37 WBC 9.8 RBC 5.30 Hgb 16.0 Hct 46.6 MCV 87.9 MCH 30.2 MCHC 34.3 RDW Std Deviation 40.7 RDW Coeff of Serafin 12.6 Plt Count 251 MPV 11.7 Immature Gran % (Auto) 0.300 Neut % (Auto) 54.5 Lymph % (Auto) 32.5 Murray % (Auto) 8.1 Eos % (Auto) 3.6 Baso % (Auto) 1.0 Absolute Neuts (auto) 5.4 Absolute Lymphs (auto) 3.19 Nucleated RBC % 0 Sodium 122 L Potassium 4.7 Chloride 88 L Carbon Dioxide 22.0 Anion Gap 12 BUN 24 H Creatinine 1.23 Estim Creat Clear Calc 100.52 Est GFR (MDRD) Af Amer 83 Est GFR (MDRD) Non-Af 68 BUN/Creatinine Ratio 19.5 Glucose 1000 H* Calcium 10.1 Urine Color Yellow Urine Clarity Clear Urine pH 6.0 Ur Specific [place] 1.010 Urine Protein Negative Urine Glucose (UA) 1000 H Urine Ketones 15 H Urine Occult Blood Negative Urine Nitrite Negative Urine Bilirubin Negative Urine Urobilinogen Normal Ur Leukocyte Esterase Negative Urine RBC 0 SEEN Urine WBC 0 SEEN Ur Squamous Epith Cells 0 SEEN Urine Bacteria 0 SEEN Urine Mucus 0 SEEN Acetone Level NEGATIVE Discharge Plan Triage Chief Complaint: Hyperglycemia ED Midlevel Provider: Batsheva Ca ED Provider: Markell Mcconnell Dx/Rx/DC Orders Clinical Impression: Hyperglycemia due to type 2 diabetes mellitus Prescriptions: No Action (DME) FreeStyle Roxi 2 Sensor Kit See Rx Instructions .Route Qty: 3 2RF Rx Instructions: As directed (DME) FreeStyle Roxi 2 [place] Misc See Rx Instructions .Route Qty: 1 0RF Rx Instructions: As directed lisinopril 10 mg tablet 10 mg PO DAILY Qty: 30 2RF (DME) pen needle, diabetic 29 gauge x 1/2 needle See Rx Instructions .Route Qty: 100 0RF Rx Instructions: As directed insulin glargine [Lantus Solostar U-100 Insulin] 100 unit/mL (3 mL) insulin pen 30 unit subcut BID Trulicity 1.5 mg/0.5 mL pen injector 1.5 mg subcut QWEEK Rx Instructions: 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
[2024-03-10] MEDS: 0.9% Normal Saline (1000mL) 1,000 ML 999 ML IV (15:01)
[2024-03-10 15:29] LABS: Absolute Lymphocyte Count 3.19 X10^3/uL (0.83-4.51); Absolute Neutrophil Count 5.4 X10^3/uL (2.0-7.7); Eosinophil# 0.35 X10^3/uL; Eosinophils% 3.6 % (0-5); Hematocrit 46.6 % (40-54); Lymphocyte # 3.19 X10^3/ul (0.83-4.51); Lymphocyte % 32.5 % (19-41); Mean Corp Hgb Conc 34.3 g/dL (32-36); Mean Corpuscular Hgb 30.2 pg (27.0-32.0); Mean Corpuscular Volume 87.9 fL (80-94); Mean Platelet Vol. 11.7 fl (6.2-12.0); Monocyte% 8.1 % (0-10); NRBC Flagged by Analyzer 0 % (0-5); Neutrophil # 5.36 X10^3/uL (2.7-7.7); Neutrophil % 54.5 % (47-70); Platelet Count 251 K/mm3 (150-450); RBC Distribution Width CV 12.6 % (11.6-14.6); RBC Distribution Width SD 40.7 fl (35.1-43.9); White Blood Count 9.8 K/mm3 (4.4-11.0)
[2024-03-10 15:46] LABS: Anion Gap 12 (5-15); BUN 24 mg/dL (7-18); BUN/Creat Ratio 19.5 RATIO (10-20); Calcium,Total 10.1 mg/dL (8.5-10.1); Chloride 88 mmol/L (98-107); Creatinine, Serum 1.23 mg/dL (0.70-1.30); EST Glomerular Filtration Rate 68 mL/min (>60); Est Glom Filt Rate - Afr Amer 83 mL/min (>60); Estimated Creatinine Clearance 100.52 ml/min; Glucose 1000 mg/dL (74-106); Potassium 4.7 mmol/L (3.5-5.1); Sodium Level 122 mmol/L (136-145)
[2024-03-10 15:53] LABS: Bacteria 0 SEEN /hpf (None Seen); Mucous, Urine 0 SEEN /hpf (<or=2+); Red Blood Cells-Urine 0 SEEN /hpf (0-5); Squamous Epithelial Cells - UA 0 SEEN /hpf (0-5); White Blood Cells 0 SEEN /hpf (0-5)
[2024-03-10 15:54] LABS: Color, Urine Yellow (Yellow); Glucose, Dipstick 1000 mg/dl (Normal); Ketone-Dipstick 15 mg/dl (Negative); Leukocyte Esterase-Dipstick Negative /ul (Negative); Nitrite-Dipstick Negative (Negative); Occult Blood-Urine Negative /ul (Negative); Protein-Dipstick Negative (Negative); Urine Bilirubin Dipstick Negative (Negative); Urine Clarity Clear (Clear); Urine Urobilinogen Normal (Normal)
--- NOTE | 2024-03-10 17:06 | ED.RN ---
THIS RN WAS TAKING ANOTHER PATIENT TO THE FLOOR UPON RETURN, RN NOTICED PATIENT WAS NOT IN THE ROOM AND NOT IN EITHER BATHROOMS. RN ASKED CHARGE NURSE HERVE WHERE HER PATIENT WENT. HERVE STATES PATIENT IS OUTSIDE WITH [facility] FOR A MOMENT. HERVE STATES PATIENT IS UPSET WITH DR. ABURTO AND NEEDS A MOMENT TO CALM DOWN AT THIS TIME. PATIENT HAS BEEN GIVEN PATIENT ADVOCATE INFORMATION
[2024-03-10] MEDS: Insulin Lispro 100 UNIT/ML INSULN.PEN 25 UNIT SC (17:43)
--- NOTE | 2024-03-10 17:47 | ED.RN ---
Patient is leaving [facility]. He states that he doesn't like how he was treated by the hospitalist. Dr. Mcconnell and Dr. Velasco notified. Orders entered for insulin by Batsheva TALAMANTES and dose of insulin given before leaving. [facility] paperwork signed.
--- NOTE | 2024-03-10 17:48 | PN.HOSP_ITS ---
Hospitalist Note I was asked to admit this patient due to elevated blood sugars and uncontrolled diabetes. While examining the patient, patient was verbally abusive and appeared angry and frustrated, I was able to examine the patient however and entered a full order set to admit the patient to [facility]. After all the orders were placed, patient decided to check out AMA, I asked the emergency room physician technical support assistant who saw the patient to provide him with a prescription for Humalog insulin and also to raise his Lantus dose. I think patient is at high risk for returning to the emergency room for admission, I verified that the patient did have an office visit with the PA several days after he was discharged from the hospital earlier in February-patient told me today that he did not recall that office visit.
== END 2024-03-10 17:51 | disposition home or self-care (01) ==
LOC: ED 14:52 → PCU 17:06
PROVIDERS: Physician Assistant; Emergency Provider Internal Medicine; Visit Provider Internal Medicine
DX: E11.65 Type 2 diabetes mellitus with hyperglycemia (principal); F17.200 Nicotine dependence, unspecified, uncomplicated
CPT/HCPCS: 80048; 81001; 82009; 85025; 96360; 99283; J7030

== ENCOUNTER → 2024-03-13 | Outpatient (CLI) | payer MEDICAID, SELFPAY ==
[2024-03-13 12:36] LABS: Microalbumin,Random Urine 14.5 mg/L (NO RANGE EST.); Microalbumin:Creatinine Ratio 15.7 mg/g CRE (<30 mg/g CRE)
[2024-03-13 12:48] LABS: ALB/GLOB Ratio 0.8 RATIO (0.9-2.4); AST(SGOT) 92 U/L (15-37); Alanine Aminotransfer ALT/SGPT 171 U/L (16-61); Albumin, Serum 3.7 g/dL (3.2-5.0); Alkaline Phosphatase 166 U/L (45-117); Anion Gap 8 (5-15); BUN 16 mg/dL (7-18); BUN/Creat Ratio 16.9 RATIO (10-20); Calcium,Total 9.8 mg/dL (8.5-10.1); Chloride 99 mmol/L (98-107); Creatinine, Serum 0.95 mg/dL (0.70-1.30); EST Glomerular Filtration Rate 92 mL/min (>60); Est Glom Filt Rate - Afr Amer 112 mL/min (>60); Globulin 4.5 g/dL (2.2-4.2); Glucose 344 mg/dL (74-106); Potassium 4.2 mmol/L (3.5-5.1); Protein, Total 8.2 g/dL (6.4-8.2); Sodium Level 132 mmol/L (136-145)
== END | disposition home or self-care (01) ==
LOC: BIMLAB 11:16
PROVIDERS: PCP Internal Medicine; Referring Provider Internal Medicine; Visit Provider Internal Medicine
DX: E11.65 Type 2 diabetes mellitus with hyperglycemia (principal)
CPT/HCPCS: 36415; 80053; 82043; 82570

== ENCOUNTER 2024-03-19 00:16 | Emergency (ER) | payer MEDICAID, SELFPAY ==
[2024-03-19 00:19] VITALS: BP 141/87; PULSE 75; RESP 18; TEMP 36.8; O2SAT 97; BMI 41.0
--- NOTE | 2024-03-19 00:26 | EDS_ITS ---
HPI History of Present Illness Chief Complaint: Abscess Informant: patient Narrative Narrative: Spontaneous onset tender swollen area on his left buttock that occurred over the past couple days and feels similar to an abscess that he had on the contralateral buttock months ago. He denies any systemic symptoms. No obvious etiology such as a needle in the area of interest. [facility] Medical History Vision problems History of ulcer disease Hearing problem History of blood transfusion Back problem Acute arthritis Seasonal allergies Substance abuse Anxiety Depression Smoker Migraines Diabetes TTP (thrombotic thrombocytopenic purpura) Home Medications ?Medication ?Instructions ?Recorded ?Last Taken ?Type pen needle, diabetic 29 gauge x #100 ea 02/23/24 Unknown Rx 1/2 flash glucose scanning reader #1 ea 02/28/24 Unknown Rx (FreeStyle Roxi 2 [place]) flash glucose sensor (FreeStyle #3 ea 02/28/24 Unknown Rx Roxi 2 Sensor kit) lisinopril 10 mg tablet 10 mg PO DAILY #30 tabs 02/28/24 Unknown Rx dulaglutide 1.5 mg/0.5 mL 1.5 mg subcut QWEEK 03/10/24 Unknown History subcutaneous pen injector (Trulicity) insulin glargine 100 unit/mL (3 40 unit (0.4 mL) subcut BID #24 mL 03/13/24 Unknown Rx mL) subcutaneous pen (Lantus Solostar U-100 Insulin) dulaglutide 0.75 mg/0.5 mL 0.75 mg subcut QWEEK 03/19/24 Unknown History subcutaneous pen injector (Trulicity) insulin lispro 100 unit/mL 20 unit subcut TID 03/19/24 Unknown History subcutaneous pen sulfamethoxazole 800 1 tab PO BID #20 tabs 03/19/24 Unknown Rx mg-trimethoprim 160 mg tablet Allergy/AdvReac Type Severity Reaction Status Date / Time adhesive Allergy Rash Verified 03/19/24 00:18 dicyclomine HCl (From Bentyl) Allergy Hives Verified 03/19/24 00:18 fentanyl Allergy Hives Verified 03/19/24 00:18 Latex, Natural Rubber Allergy Rash Verified 03/19/24 00:18 methadone Allergy Other Verified 03/19/24 00:18 prednisone Allergy Rash Verified 03/19/24 00:18 tramadol HCl (From Ultram) Allergy Hives Verified 03/19/24 00:18 aspirin AdvReac Other Verified 03/19/24 00:18 ketorolac tromethamine (From AdvReac Upset Verified 03/19/24 00:18 Toradol) Stomach Family History (Updated 03/13/24 @ 10:[address] Katia Belle MD) Mother Diabetes Heart disease Cancer unknown Asthma Anxiety Arthritis Surgical History H/O eye surgery Social History household members: significant other, children and other details: [employer] housing: house current occupational status: unemployed Smoking Status: Heavy Smoker (>10/day) Tobacco: How many years used: 30 Electronic Cigarette Use: not used quit status: considering quitting alcohol intake: never substance use type: marijuana what type of physical activity do you participate in: walking seatbelt use: always do you feel safe at home: Yes ROS ROS ED Constitutional Constitutional ED: Denies chills or fever(s) Respiratory/Chest Respiratory/Chest: Denies dyspnea Gastrointestinal Gastrointestinal: Denies nausea or vomiting Integumentary Reports as per HPI and abscess; Denies rash Neurologic Neurologic: Denies headache(s), paresthesias or weakness EXAM Physical Exam Const Vital Signs: 03/19/24 00:19 Temperature 98.3 F Temperature Source Oral Pulse Rate 75 Respiratory Rate 18 Blood Pressure 141/87 H Blood Pressure Mean 105 Pulse Ox 97 Oxygen Delivery Method Room Air Positive well nourished and well developed General Appearance ED: well developed and NAD HEENT Reports moist mucous membranes normocephalic and atraumatic Eyes EOMs intact bilaterally Neck full ROM and supple Resp normal respiratory effort Back/Spine General Back: other FROM Extremity normal to inspection General Extremety ED: Negative for edema General Extremity: Negative for edema Neuro oriented x3, CN's II-XII intact bilaterally and no sensory deficits noted Sensorium / Orientation: awake and alert Motor Exam: strength 5/5 throughout Skin Skin Narrative: 4-5 cm indurated abscess without spontaneous discharge left buttock MDM MDM MDM Narrative Medical decision making narrative: Abscess incised and drained and packed, see the procedure note. Patient tolerated well asking for a pill for pain for tonight which he was given since he has a ride home. Prescribed Bactrim and started on it now given appropriate discharge instructions and reasons to return. Procedures Other Procedures Procedure(s): Complex abscess incision and drainage, left buttock: Sterile prep and drape with chlorhexidine and isopropanol. Locally anesthetized with a total of 8 cc of plain 1% lidocaine, incised ventrally with a #10 razor, relatively small amount of purulent material was expressed. I deloculated the cavity and attempt to get more, only a little was then expressed more. I irrigated the cavity with sterile saline and packed it with a small amount of quarter inch gauze, dressed with bacitracin, tolerated well no complications. Discharge Plan Triage Chief Complaint: Abscess ED Provider: Ashok Norton Dx/Rx/DC Orders Clinical Impression: Abscess of buttock, left Instructions: ED Abscess Incision And Drainage Prescriptions: Continued insulin glargine [Lantus Solostar U-100 Insulin] 100 unit/mL (3 mL) insulin pen 40 unit subcut BID Qty: 24 1RF (DME) FreeStyle Roxi 2 Sensor Kit See Rx Instructions .Route Qty: 3 2RF Rx Instructions: As directed (DME) FreeStyle Roxi 2 [place] Misc See Rx Instructions .Route Qty: 1 0RF Rx Instructions: As directed lisinopril 10 mg tablet 10 mg PO DAILY Qty: 30 2RF Trulicity 0.75 mg/0.5 mL pen injector 0.75 mg subcut QWEEK insulin lispro 100 unit/mL insulin pen 20 unit subcut TID sulfamethoxazole-trimethoprim 800-160 mg tablet 1 tab PO BID Qty: 20 0RF (DME) pen needle, diabetic 29 gauge x 1/2 needle See Rx Instructions .Route Qty: 100 0RF Rx Instructions: As directed Trulicity 1.5 mg/0.5 mL pen injector 1.5 mg subcut QWEEK Rx Instructions: 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 If it falls out earlier than that, do not worry about it, just continue dressing changes. If there is any water that gets into the area after a shower or what not, you may gently apply pressure to the surrounding area to express it prior to a new dressing change. Antibiotic ointment on the area with these dressing changes okay as well. If you are concerned about it recurring or getting worse, return to the ER for reevaluation. Print Language: Peruvian Disposition Disposition: Home, Self Care
[2024-03-19] MEDS: Smz/Tmp Ds Tablet 1 TABLET PO (00:33)
[2024-03-19] MEDS: Lidocaine 1% (20 ml mdv) 20 ML Vial INFILT (00:33)
[2024-03-19] MEDS: HYDROcodone Bitartrate/Apap 5/325 Tablet PO (01:19)
[2024-03-19 01:23] VITALS: BP 136/88; PULSE 80; RESP 17; TEMP 37; O2SAT 98
== END 2024-03-19 01:24 | disposition home or self-care (01) ==
LOC: ED 00:59
PROVIDERS: Emergency Provider Emergency Medicine; Visit Provider Emergency Medicine
DX: L02.31 Cutaneous abscess of buttock (principal); Z79.4 Long term (current) use of insulin; F17.200 Nicotine dependence, unspecified, uncomplicated; F12.90 Cannabis use, unspecified, uncomplicated; Z79.899 Other long term (current) drug therapy
CPT/HCPCS: 99283

== ENCOUNTER 2024-04-10 19:26 | Emergency (ER) | payer MEDICAID, SELFPAY ==
[2024-04-10 19:28] VITALS: BP 123/85; PULSE 101; RESP 18; TEMP 36.1; O2SAT 100; BMI 40.3
[2024-04-10 20:09] VITALS: BP 117/77; PULSE 89; RESP 16; TEMP 36.6; O2SAT 99
--- NOTE | 2024-04-10 20:21 | EX.ED.DYSGE1 ---
HPI History of Present Illness Chief Complaint: Abscess Informant: patient Narrative Narrative: 44-year-old male presenting to the emergency room out of concern for possible abscess of the left buttock. Patient states it has been there for a few days. He states that he had a incision and drainage of a buttock abscess near this area 1 month ago that is still healing. He states he has had several of these in the past. Patient notes it is very painful particularly to sit on. He denies any fevers. He has never had to see a surgeon for this. He believes he had 3 this area total in his lifetime. [facility] Medical History Vision problems History of ulcer disease Hearing problem History of blood transfusion Back problem Acute arthritis Seasonal allergies Substance abuse Anxiety Depression Smoker Migraines Diabetes TTP (thrombotic thrombocytopenic purpura) Home Medications ?Medication ?Instructions ?Recorded ?Last Taken ?Type flash glucose scanning reader #1 ea 02/28/24 Unknown Rx (FreeStyle Roxi 2 [place]) flash glucose sensor (FreeStyle #3 ea 02/28/24 Unknown Rx Roxi 2 Sensor kit) lisinopril 10 mg tablet 10 mg PO DAILY #30 tabs 02/28/24 Unknown Rx insulin glargine 100 unit/mL (3 40 unit (0.4 mL) subcut BID #24 mL 03/13/24 Unknown Rx mL) subcutaneous pen (Lantus Solostar U-100 Insulin) insulin lispro 100 unit/mL 20 unit subcut TID 03/19/24 Unknown History subcutaneous pen sulfamethoxazole 800 1 tab PO BID #20 tabs 03/19/24 Unknown Rx mg-trimethoprim 160 mg tablet pen needle, diabetic 29 gauge x #100 ea 03/26/24 Unknown Rx 1/2 dulaglutide 0.75 mg/0.5 mL 0.75 mg (0.5 mL) subcut QWEEK #2 mL 04/08/24 Unknown Rx subcutaneous pen injector (Trulicity) cephalexin 500 mg capsule 500 mg PO Q6 #40 CAPSULES 04/10/24 Unknown Rx hydrocodone-acetaminophen 5-325mg 1 tab PO Q6H PRN PRN Pain 3 days 04/10/24 Unknown Rx 5mg-325mg #10 TABLETS sulfamethoxazole 800 1 tab PO BID #20 TABLETS 04/10/24 Unknown Rx mg-trimethoprim 160 mg tablet Allergy/AdvReac Type Severity Reaction Status Date / Time adhesive Allergy Rash Verified 04/10/24 19:27 dicyclomine HCl (From Bentyl) Allergy Hives Verified 04/10/24 19:27 fentanyl Allergy Hives Verified 04/10/24 19:27 Latex, Natural Rubber Allergy Rash Verified 04/10/24 19:27 methadone Allergy Other Verified 04/10/24 19:27 prednisone Allergy Rash Verified 04/10/24 19:27 tramadol HCl (From Ultram) Allergy Hives Verified 04/10/24 19:27 aspirin AdvReac Other Verified 04/10/24 19:27 ketorolac tromethamine (From AdvReac Upset Verified 04/10/24 19:27 Toradol) Stomach Family History Mother Diabetes Heart disease Cancer unknown Asthma Anxiety Arthritis Surgical History H/O eye surgery Social History household members: significant other, children and other details: [facility] housing: house current occupational status: unemployed Smoking Status: Heavy Smoker (>10/day) Tobacco: How many years used: 30 Electronic Cigarette Use: not used quit status: considering quitting alcohol intake: never substance use type: marijuana what type of physical activity do you participate in: walking seatbelt use: always do you feel safe at home: Yes ROS ROS ED Constitutional Constitutional ED: Denies chills, fever(s) or weight loss Eyes Eyes: Denies change in vision or diplopia ENT ENT ED: Denies ear pain, rhinorrhea or sore throat Cardiovascular Cardiovascular: Denies chest pain, orthopnea, palpitations or racing heartbeat Respiratory/Chest Respiratory/Chest: Denies cough, dyspnea or orthopnea Gastrointestinal Gastrointestinal: Denies abdominal pain, diarrhea, nausea or vomiting Genitourinary Genitourinary ED: Denies dysuria, hematuria or urinary frequency Musculoskeletal Musculoskeletal: Denies arthralgias or myalgias Integumentary Reports abscess; Denies rash Neurologic Neurologic: Denies headache(s) or weakness Psychiatric Psychiatric: Denies anxiety, depression, suicidal ideation or suicidal thoughts Endocrine Endocrinology: Denies polydipsia, polyphagia or polyuria Allergic/Immunologic Allergic/Immunologic ED: Denies mouth swelling, tongue swelling or urticaria EXAM Physical Exam Const Vital Signs: 04/10/24 19:28 04/10/24 20:09 Temperature 97 F L 98 F Temperature Source Temporal Pulse Rate 101 H 89 Respiratory Rate 18 16 Blood Pressure 123/85 H 117/77 Blood Pressure Mean 97 90 Pulse Ox 100 99 Oxygen Delivery Method Room Air Positive well nourished and well developed General Appearance ED: well developed HEENT Reports normocephalic, head/scalp atraumatic and moist mucous membranes Eyes PERRL and EOMs intact bilaterally Neck no lymphadenopathy, supple and no JVD Resp normal respiratory effort and clear to auscultation bilaterally Cardio regular rate, regular rhythm and no murmurs GI normal to inspection, nondistended, normoactive bowel sounds and non-tender Palpation: soft Back/Spine no CVA tenderness and normal ROM Extremity normal to inspection General Extremety ED: Negative for edema General Extremity: Negative for edema Neuro oriented x3 and CN's II-XII intact bilaterally Sensorium / Orientation: alert Motor Exam: strength 5/5 throughout Psych mental status grossly normal Mood & Affect: Negative for depressed or tearful Skin no rashes or lesions noted Skin Narrative: There are multiple small pustules on the buttock. There is an area of about 4 cm round erythema with induration without fluctuance. There is a central point to the area that is not pus filled. MDM MDM MDM Narrative Medical decision making narrative: Differential diagnosis includes abscess furuncle carbuncle pustule cellulitis Using bedside ultrasound I do not identify a significant area that is amendable to drainage at this time. I spoke with the patient regarding this would recommend heat antibiotics. He was advised that this may form a drainable abscess but at this time I am not seeing where it would be of benefit. He understands this will return if worsening or concerns follow-up improving History & Record Review Discussion w/independent historian: Patient Discharge Plan Triage Chief Complaint: Abscess ED Provider: Blane Carlos Dx/Rx/DC Orders Clinical Impression: Cutaneous abscess of axilla, Acute buttock pain Instructions: ED Abscess Antibiotic Treatment Only Prescriptions: New hydrocodone-acetaminophen 5-325 mg tablet 1 tab PO Q6H PRN PRN (Reason: Pain) 3 Days Qty: 10 0RF cephalexin 500 mg capsule 500 mg PO Q6 Qty: 40 0RF sulfamethoxazole-trimethoprim 800-160 mg tablet 1 tab PO BID Qty: 20 0RF No Action insulin glargine [Lantus Solostar U-100 Insulin] 100 unit/mL (3 mL) insulin pen 40 unit subcut BID Qty: 24 1RF (DME) FreeStyle Rxoi 2 Sensor Kit See Rx Instructions .Route Qty: 3 2RF Rx Instructions: As directed (DME) FreeStyle Roxi 2 [place] Misc See Rx Instructions .Route Qty: 1 0RF Rx Instructions: As directed lisinopril 10 mg tablet 10 mg PO DAILY Qty: 30 2RF insulin lispro 100 unit/mL insulin pen 20 unit subcut TID sulfamethoxazole-trimethoprim 800-160 mg tablet 1 tab PO BID Qty: 20 0RF (DME) pen needle, diabetic 29 gauge x 1/2 needle See Rx Instructions .Route Qty: 100 3RF Rx Instructions: As directed five times daily; DMII (E11.9) Trulicity 0.75 mg/0.5 mL pen injector 0.75 mg subcut QWEEK Qty: 2 1RF Primary Care Provider: Katia Belle Referrals: Katia Belle MD [Primary Care Provider] - 1 Week if not improving Print Language: Bolivian Disposition Disposition: Home, Self Care Discharge Date/Time: 04/10/24 20:09
== END 2024-04-10 20:09 | disposition home or self-care (01) ==
PROVIDERS: Emergency Provider Emergency Medicine; PCP Internal Medicine; Visit Provider Emergency Medicine
DX: L02.31 Cutaneous abscess of buttock (principal); E11.9 Type 2 diabetes mellitus without complications; F17.200 Nicotine dependence, unspecified, uncomplicated; F12.90 Cannabis use, unspecified, uncomplicated
CPT/HCPCS: 99282

== ENCOUNTER 2024-05-21 17:59 | Emergency (ER) | payer MEDICAID, SELFPAY ==
[2024-05-21 18:01] VITALS: BP 130/93; PULSE 84; RESP 20; TEMP 36.1; O2SAT 98; BMI 40.9
--- NOTE | 2024-05-21 18:14 | EX.ED.UPPERE ---
HPI History of Present Illness HPI Narrative: Patient is a 44-year-old male past medical history of TTP, diabetes, depression, anxiety, substance abuse who presented to the emerged part with a chief complaint of right shoulder pain. He states that the end of the previous month he went down to [place] had a procedure done on his right shoulder where they broke up calcium deposits. He states that starting today he had significant amount of pain in his right shoulder he states that he has tried multiple doses of Tylenol and ibuprofen without any symptomatic relief prompting him to come here for evaluation management. He states that he feels that calcium deposits may have reaccumulated causing him problems. He denies any new falls or trauma to the shoulder. Chief Complaint: Upper Extremity Injury [facility] Medical History Vision problems History of ulcer disease Hearing problem History of blood transfusion Back problem Acute arthritis Seasonal allergies Substance abuse Anxiety Depression Smoker Migraines Diabetes TTP (thrombotic thrombocytopenic purpura) Home Medications ?Medication ?Instructions ?Recorded ?Last Taken ?Type flash glucose scanning reader #1 ea 02/28/24 Unknown Rx (FreeStyle Roxi 2 [place]) flash glucose sensor (FreeStyle #3 ea 02/28/24 Unknown Rx Roxi 2 Sensor kit) lisinopril 10 mg tablet 10 mg PO DAILY #30 tabs 02/28/24 Unknown Rx insulin lispro 100 unit/mL 20 unit subcut TID 03/19/24 Unknown History subcutaneous pen sulfamethoxazole 800 1 tab PO BID #20 tabs 03/19/24 Unknown Rx mg-trimethoprim 160 mg tablet pen needle, diabetic 29 gauge x #100 ea 03/26/24 Unknown Rx 1/2 dulaglutide 0.75 mg/0.5 mL 0.75 mg (0.5 mL) subcut QWEEK #2 mL 04/08/24 Unknown Rx subcutaneous pen injector (Trulicity) hydrocodone-acetaminophen 5-325mg 1 tab PO Q6H PRN PRN Pain 3 days 04/10/24 Unknown Rx 5mg-325mg #10 TABLETS sulfamethoxazole 800 1 tab PO BID #20 TABLETS 04/10/24 Unknown Rx mg-trimethoprim 160 mg tablet insulin glargine 100 unit/mL (3 40 unit (0.4 mL) subcut BID #24 mL 05/07/24 Unknown Rx mL) subcutaneous pen (Lantus Solostar U-100 Insulin) Allergy/AdvReac Type Severity Reaction Status Date / Time adhesive Allergy Rash Verified 05/21/24 18:01 dicyclomine HCl (From Bentyl) Allergy Hives Verified 05/21/24 18:01 fentanyl Allergy Hives Verified 05/21/24 18:01 Latex, Natural Rubber Allergy Rash Verified 05/21/24 18:01 methadone Allergy Other Verified 05/21/24 18:01 prednisone Allergy Rash Verified 05/21/24 18:01 tramadol HCl (From Ultram) Allergy Hives Verified 05/21/24 18:01 aspirin AdvReac Other Verified 05/21/24 18:01 ketorolac tromethamine (From AdvReac Upset Verified 05/21/24 18:01 Toradol) Stomach Family History Mother Diabetes Heart disease Cancer unknown Asthma Anxiety Arthritis Surgical History H/O eye surgery Social History household members: significant other, children and other details: [facility] housing: house current occupational status: unemployed Smoking Status: Heavy Smoker (>10/day) Tobacco: How many years used: 30 Electronic Cigarette Use: not used quit status: considering quitting alcohol intake: never substance use type: marijuana what type of physical activity do you participate in: walking seatbelt use: always do you feel safe at home: Yes ROS ROS ED ROS Narrative Constitutional: Denies any fevers, chills, headaches, lightheadedness, dizziness Eyes: Denies any change in vision double vision blurry vision Cardiovascular: Denies chest pain or palpitations Respiratory: Denies coughing wheezing shortness of breath Abdomen: Denies abdominal pain nausea vomiting diarrhea : Denies any urinary symptoms Neurological: Denies numbness, weakness, tingling Musculoskeletal: Complains of right shoulder pain as noted above Skin: Denies rashes or lesions EXAM Physical Exam Narrative Exam Narrative: General: Patient lying in bed rest comfortably did not appear to be in acute distress Head: Atraumatic, normocephalic Eyes: PERRL bilaterally, EOMI bilaterally, no conjunctival injection noted Neck: Soft, supple, trachea midline Cardiovascular: Regular rate and rhythm no murmurs gallops rubs noted Respiratory: Clear to auscultation bilaterally no rales rhonchi wheeze noted Abdomen: Soft, nondistended, nontender to palpation Extremities: +5/5 strength noted in the bilateral upper and lower extremities, radial pulses +2/4 in the bilateral upper extremities, patient is able to lift his right shoulder above his head and across his body he states that he does have some discomfort when he attempts to move his right arm across his body and bring it down to his side from that position Neurological: Patient following commands knew he is at [facility] the year is 2023. Sensation grossly intact in the bilateral upper extremities when compared Skin: Warm, dry, intact, no rashes or lesions noted no petechia no purpura no surrounding erythema Const Vital Signs: 05/21/24 18:01 Temperature 97 F L Temperature Source Temporal Pulse Rate 84 Respiratory Rate 20 H Blood Pressure 130/93 H Blood Pressure Mean 105 Pulse Ox 98 Oxygen Delivery Method Room Air MDM MDM MDM Narrative Medical decision making narrative: Patient is a 44-year-old male who presented to the emergency department chief complaint of right shoulder pain. Patient will have x-rays obtained here and then be reevaluated. On the differential diagnose includes but limited to osteoarthritis, tendinopathy, musculoskeletal strain, pneumothorax. Once workup is obtained and reviewed he will be reevaluated. Patient states that he taken multiple doses of ibuprofen and Tylenol today without any symptomatic relief he will be given a pain pill here. Patient's x-ray of his shoulder and chest reviewed showed no acute fracture or dislocation and no acute cardiopulmonary processes were reviewed by myself and radiologist agrees. They discussed results with the patient he would like to go home this morning time. He is encouraged to continue to ice, use ibuprofen Tylenol [id number] for pain control. Patient was encouraged to return with fevers, worsening pain, overlying redness or any other concerns. He is encouraged to follow-up with his primary care physician as well as the physician that did the procedure in [place]. All question concerns answered he is discharged home in stable condition. Discharge Plan Triage Chief Complaint: Upper Extremity Injury ED Provider: El Churchill Dx/Rx/DC Orders Clinical Impression: Acute pain of right shoulder Instructions: ED RICE Prescriptions: No Action (DME) [employer] Roxi 2 Sensor Kit See Rx Instructions .Route Qty: 3 2RF Rx Instructions: As directed (DME) FreeStyle Roxi 2 [place] Misc See Rx Instructions .Route Qty: 1 0RF Rx Instructions: As directed lisinopril 10 mg tablet 10 mg PO DAILY Qty: 30 2RF insulin lispro 100 unit/mL insulin pen 20 unit subcut TID sulfamethoxazole-trimethoprim 800-160 mg tablet 1 tab PO BID Qty: 20 0RF hydrocodone-acetaminophen 5-325 mg tablet 1 tab PO Q6H PRN PRN (Reason: Pain) 3 Days Qty: 10 0RF sulfamethoxazole-trimethoprim 800-160 mg tablet 1 tab PO BID Qty: 20 0RF (DME) pen needle, diabetic 29 gauge x 1/2 needle See Rx Instructions .Route Qty: 100 3RF Rx Instructions: As directed five times daily; DMII (E11.9) Trulicity 0.75 mg/0.5 mL pen injector 0.75 mg subcut QWEEK Qty: 2 1RF insulin glargine [Lantus Solostar U-100 Insulin] 100 unit/mL (3 mL) insulin pen 40 unit subcut BID Qty: 24 0RF Primary Care Provider: Care Physician,No Primary Referrals: Care Physician,No Primary [Primary Care Provider] - Activity Restrictions/Additional Instructions: Continues ibuprofen/Tylenol [id number] for pain control. Ice, return for fevers, overlying redness in the skin of the shoulder joint or any other concerns. Follow with your physician in the outpatient setting. Print Language: Welsh Disposition Disposition: Home, Self Care
--- NOTE | 2024-05-21 18:15 | RAD_ITS ---
STUDY: X-RAY CHEST REASON FOR EXAM: Male, 44 years old. right shoulder pain TECHNIQUE: Single frontal view of the chest. COMPARISON: March 02, 2024 FINDINGS: The lungs are clear and expanded. There is no demonstrated pleural abnormality. Normal size heart. Normal mediastinum and yousif. Normal visualized pulmonary arteries. Normal visualized aortic arch and descending thoracic aorta. Normal visualized thoracic spine. Normal visualized ribs, clavicles, and shoulders. There is no demonstrated abnormality of the visualized soft tissue structures of the upper abdomen. RAD/Chest 1 View (Portable) IMPRESSION: Normal x-ray examination of the chest. Electronically Signed: Gage Velez MD at 18:44 EDT ,
[2024-05-21] MEDS: HYDROcodone Bitartrate/Apap 5/325 Tablet PO (18:16)
[2024-05-21] MEDS: Ondansetron ODT 4 MG Tablet PO (18:16)
--- NOTE | 2024-05-21 18:30 | RAD_ITS ---
STUDY: X-RAY - RIGHT SHOULDER REASON FOR EXAM: Male, 44 years old. right shoulder pain TECHNIQUE: 2 view(s) of the shoulder. COMPARISON: Right shoulder November 10, 2023 FINDINGS: Normal glenohumeral articulation. Normal acromioclavicular joint. Normal acromion. Normal humeral head and visualized proximal humerus. The soft tissue structures are unremarkable. Normal visualized pulmonary apex. RAD/Shoulder min 2 Views IMPRESSION: Normal x-ray examination of the shoulder. Electronically Signed: Gage Velez MD at 18:44 EDT ,
== END 2024-05-21 20:47 | disposition home or self-care (01) ==
PROVIDERS: Emergency Provider Emergency Medicine; Visit Provider Emergency Medicine
DX: M25.511 Pain in right shoulder (principal); E11.9 Type 2 diabetes mellitus without complications; Z79.4 Long term (current) use of insulin; Z79.85 Long-term (current) use of injectable non-insulin antidiabetic drugs; F17.200 Nicotine dependence, unspecified, uncomplicated
CPT/HCPCS: 71045; 73030; 99283

== ENCOUNTER → 2024-07-30 | Outpatient (CLI) | payer MEDICAID, SELFPAY ==
[2024-07-30 13:00] LABS: ALB/GLOB Ratio 0.8 RATIO (0.9-2.4); AST(SGOT) 23 U/L (15-37); Alanine Aminotransfer ALT/SGPT 60 U/L (16-61); Albumin, Serum 3.8 g/dL (3.2-5.0); Alkaline Phosphatase 200 U/L (45-117); Anion Gap 8 (5-15); BUN 15 mg/dL (7-18); BUN/Creat Ratio 15.8 RATIO (10-20); Calcium,Total 9.6 mg/dL (8.5-10.1); Chloride 97 mmol/L (98-107); Creatinine, Serum 0.95 mg/dL (0.70-1.30); EST Glomerular Filtration Rate 92 mL/min (>60); Est Glom Filt Rate - Afr Amer 111 mL/min (>60); Globulin 4.5 g/dL (2.2-4.2); Glucose 579 mg/dL (74-106); Potassium 4.6 mmol/L (3.5-5.1); Protein, Total 8.3 g/dL (6.4-8.2); Sodium Level 130 mmol/L (136-145)
== END | disposition home or self-care (01) ==
LOC: BIMLAB 08:30
PROVIDERS: PCP Internal Medicine; Visit Provider Internal Medicine
DX: R74.8 Abnormal levels of other serum enzymes (principal)
CPT/HCPCS: 36415; 80053

== ENCOUNTER 2024-08-02 20:43 | Emergency (ER) | payer MEDICAID, SELFPAY ==
[2024-08-02 20:44] VITALS: BP 132/84; PULSE 96; RESP 16; TEMP 35.7; O2SAT 96; BMI 41.8
== END 2024-08-02 22:00 | disposition left against medical advice (07) ==
LOC: ED 22:18
PROVIDERS: PCP Internal Medicine
DX: Z53.21 Procedure and treatment not carried out due to patient leaving prior to being seen by health care provider (principal)

== ENCOUNTER 2024-09-04 17:41 | Emergency (ER) | payer MEDICAID, SELFPAY ==
[2024-09-04 17:42] VITALS: BP 134/88; PULSE 87; RESP 16; TEMP 35.7; O2SAT 100; BMI 42.7
--- NOTE | 2024-09-04 18:14 | EDS_ITS ---
HPI HPI - URI History of Present Illness Chief Complaint: Ear Problem Informant: patient Onset/Context/Timing Onset: Weeks (1.5) Context: Gradual Onset Timing: Continuous Quality: Aching Location: Left ear Worsened by: - (Chewing, eating) Relieved by: - (Nothing) Associated Symptoms Associated Symptoms: Positive for Headache; Negative for Nasal Congestion, Sinus Pressure, Myalgias, Nausea, Vomiting, Diarrhea, Shortness of Breath, Chest Pain, Nonproductive cough, Hemoptysis or Productive Cough Narrative Narrative: Patient presents with pain in his left ear that has been getting worse over the past 1-1/2 weeks. Patient states it is gradually getting worse. Patient states it is worse with any chewing or eating. Patient describes his pain as aching. Patient states it is localized to the left ear. Patient denies any discharge or drainage. Patient admits to a headache. Patient denies any nausea or vomiting. Patient denies any fevers or chills. Patient denies any chest pain or chris rtness of breath. Patient denies any cough. ROS ROS ED Constitutional Constitutional ED: Denies chills or fever(s) Eyes Eyes: Denies blurry vision or change in vision ENT ENT ED: Reports ear pain left; Denies rhinorrhea or sore throat Cardiovascular Cardiovascular: Denies chest pain or palpitations Respiratory/Chest Respiratory/Chest: Denies cough or dyspnea Gastrointestinal Gastrointestinal: Denies nausea or vomiting Genitourinary Genitourinary ED: Denies dysuria or hematuria Musculoskeletal Musculoskeletal: Reports neck pain; Denies back pain Integumentary Denies abscess or rash Neurologic Neurologic: Reports headache(s); Denies weakness Allergic/Immunologic Allergic/Immunologic ED: Denies mouth swelling or urticaria [facility] Medical History Vision problems History of ulcer disease Hearing problem History of blood transfusion Back problem Acute arthritis Seasonal allergies Substance abuse Anxiety Depression Smoker Migraines Diabetes TTP (thrombotic thrombocytopenic purpura) Home Medications ?Medication ?Instructions ?Recorded ?Last Taken ?Type flash glucose scanning reader #1 ea 02/28/24 Unknown Rx (FreeStyle Roxi 2 [place]) hydrocodone-acetaminophen 5-325mg 1 tab PO Q6H PRN PRN Pain 3 days 04/10/24 Unknown Rx 5mg-325mg #10 TABLETS flash glucose sensor (FreeStyle #3 ea 07/30/24 Unknown Rx Roxi 2 Sensor kit) insulin glargine 100 unit/mL (3 40 unit (0.4 mL) subcut BID #24 mL 07/30/24 Unknown Rx mL) subcutaneous pen (Lantus Solostar U-100 Insulin) insulin lispro 100 unit/mL 20 unit (0.2 mL) subcut TID #18 mL 07/30/24 Unknown Rx subcutaneous pen lisinopril 10 mg tablet 10 mg PO DAILY #90 tabs 07/30/24 Unknown Rx dulaglutide 0.75 mg/0.5 mL 1.5 mg subcut QWEEK #6 mL 08/13/24 Unknown Rx subcutaneous pen injector (Trulicity) pen needle, diabetic 31 gauge x #100 ea 08/23/24 Unknown Rx 5/16 (Pen Needle) cephalexin 500 mg capsule 500 mg PO Q6 #40 CAPSULES 09/04/24 Unknown Rx Allergy/AdvReac Type Severity Reaction Status Date / Time adhesive Allergy Rash Verified 09/04/24 17:42 dicyclomine HCl (From Bentyl) Allergy Hives Verified 09/04/24 17:42 fentanyl Allergy Hives Verified 09/04/24 17:42 Latex, Natural Rubber Allergy Rash Verified 09/04/24 17:42 methadone Allergy Other Verified 09/04/24 17:42 prednisone Allergy Rash Verified 09/04/24 17:42 tramadol HCl (From Ultram) Allergy Hives Verified 09/04/24 17:42 aspirin AdvReac Other Verified 09/04/24 17:42 ketorolac tromethamine (From AdvReac Upset Verified 09/04/24 17:42 Toradol) Stomach Family History Mother Diabetes Heart disease Cancer unknown Asthma Anxiety Arthritis Surgical History H/O eye surgery Social History household members: significant other, children and other details: [place] housing: house current occupational status: unemployed Smoking Status: Heavy Smoker (>10/day) Tobacco: How many years used: 30 Electronic Cigarette Use: not used quit status: considering quitting alcohol intake: never substance use type: marijuana what type of physical activity do you participate in: walking seatbelt use: always do you feel safe at home: Yes EXAM Physical Exam Const Vital Signs: 09/04/24 17:42 Temperature 96.3 F L Temperature Source Temporal Pulse Rate 87 Respiratory Rate 16 Blood Pressure 134/88 H Blood Pressure Mean 103 Pulse Ox 100 Oxygen Delivery Method Room Air Positive well nourished and well developed General Appearance ED: well developed and NAD HEENT Reports moist mucous membranes HEENT Narrative: Tympanic membranes are clear bilaterally. There is some mild edema and tenderness of the left tragus. There is no fluctuance. There is no discharge or drainage noted. Neck is supple. Trachea is midline. No JVD or lymphadenopathy noted. There is no neck swelling. normocephalic and atraumatic Throat: posterior oropharynx normal Neck supple, No no meningeal signs and No no JVD General: Negative for anterior neck swelling or lymphadenopathy Resp normal respiratory effort and clear to auscultation bilaterally Cardio Rate: regular rate Rhythm: regular rhythm GI non-tender and non-distended Palpation: soft Neuro oriented x3, CN's II-XII intact bilaterally and no sensory deficits noted Sensorium / Orientation: alert Motor Exam: strength 5/5 throughout MDM MDM MDM Narrative Medical decision making narrative: Smoking cessation was discussed. Patient was advised that there is an infection of the tragus. Patient was instructed to use warm compresses to the area. Patient was given a prescription for Keflex. Patient was instructed to follow- up with his primary care physician in 5 to 7 days. Patient instructed take Tylenol or ibuprofen as needed for pain. Patient understood and was agreeable with the plan. All questions were answered. Discharge Plan Triage Chief Complaint: Ear Problem ED Provider: Eliecer Cortez Dx/Rx/DC Orders Clinical Impression: Cellulitis of tragus of left ear, Type 2 diabetes mellitus, Nicotine addiction Instructions: ED External Ear Infection (Adult) Prescriptions: New cephalexin 500 mg capsule 500 mg PO Q6 Qty: 40 0RF No Action (DME) FreeStyle Roxi 2 [place] Misc See Rx Instructions .Route Qty: 1 0RF Rx Instructions: As directed lisinopril 10 mg tablet 10 mg PO DAILY Qty: 90 0RF (DME) FreeStyle Roxi 2 Sensor Kit See Rx Instructions .Route Qty: 3 2RF Rx Instructions: As directed insulin glargine [Lantus Solostar U-100 Insulin] 100 unit/mL (3 mL) insulin pen 40 unit subcut BID Qty: 24 2RF insulin lispro 100 unit/mL insulin pen 20 unit subcut TID Qty: 18 2RF hydrocodone-acetaminophen 5-325 mg tablet 1 tab PO Q6H PRN PRN (Reason: Pain) 3 Days Qty: 10 0RF Trulicity 0.75 mg/0.5 mL pen injector 1.5 mg subcut QWEEK Qty: 6 0RF (DME) pen needle, diabetic [Pen Needle] 31 gauge x 5/16 needle See Rx Instructions .Route Qty: 100 3RF Rx Instructions: As directed five times daily; DMII (E11.9) Primary Care Provider: Katia Belle Referrals: Katia Belle MD [Primary Care Provider] - 5-7 Days Print Language: Bulgarian Disposition Disposition: Home, Self Care
[2024-09-04] MEDS: Cephalexin 500 MG Capsule PO (18:30)
== END 2024-09-04 18:33 | disposition home or self-care (01) ==
PROVIDERS: Emergency Provider Emergency Medicine; PCP Internal Medicine; Visit Provider Emergency Medicine
DX: H60.12 Cellulitis of left external ear (principal); E11.9 Type 2 diabetes mellitus without complications; Z79.4 Long term (current) use of insulin; Z79.85 Long-term (current) use of injectable non-insulin antidiabetic drugs; F17.200 Nicotine dependence, unspecified, uncomplicated
CPT/HCPCS: 99282

== ENCOUNTER 2024-11-16 18:25 | Emergency (ER) | payer MEDICAID, SELFPAY ==
[2024-11-16 18:26] VITALS: BP 151/94; PULSE 97; RESP 18; TEMP 36.6; O2SAT 96; BMI 44.5
[2024-11-16] MEDS: Lidocaine 1% /Epi 1:100 (20ml) 20 ML Vial 5 ML INFILT (18:49)
--- NOTE | 2024-11-16 19:09 | EX.ED.DYSGE1 ---
HPI <ROEL Quintero - Last Filed: 11/16/24 19:14> History of Present Illness Chief Complaint: Abscess Narrative Narrative: Patient is a 44-year-old male with history obesity, TTP, diabetes, who presents to the emergency department with complaints of abscess to the right posterior thigh. Patient dates has been there about a week and a half, he has been squeezing and getting some red to brown drainage out. He denies any fever or chills. He has had these in the past. PFS <ROEL Quintero - Last Filed: 11/16/24 19:14> [facility] Medical History Vision problems History of ulcer disease Hearing problem History of blood transfusion Back problem Acute arthritis Seasonal allergies Substance abuse Anxiety Depression Smoker Migraines Diabetes TTP (thrombotic thrombocytopenic purpura) Home Medications ?Medication ?Instructions ?Recorded ?Last Taken ?Type flash glucose scanning reader #1 ea 02/28/24 Unknown Rx (FreeStyle Roxi 2 [place]) flash glucose sensor (FreeStyle #3 ea 07/30/24 Unknown Rx Roxi 2 Sensor kit) blood-glucose meter,continuous #1 ea 09/11/24 Unknown Rx (FreeStyle Roxi 3 [place]) blood-glucose sensor (FreeStyle #1 ea 09/19/24 Unknown Rx Roxi 3 Sensor device) blood pressure monitor #1 ea 10/29/24 Unknown Rx dulaglutide 3 mg/0.5 mL 3 mg (0.5 mL) subcut QWEEK #6 mL 10/29/24 Unknown Rx subcutaneous pen injector insulin glargine 100 unit/mL (3 42 unit (0.42 mL) subcut BID #76 mL 10/29/24 Unknown Rx mL) subcutaneous pen (Lantus Solostar U-100 Insulin) insulin lispro 100 unit/mL 22 unit (0.22 mL) subcut TID #60 mL 10/29/24 Unknown Rx subcutaneous pen lisinopril 10 mg tablet 10 mg PO DAILY #90 tabs 10/29/24 Unknown Rx pen needle, diabetic 31 gauge x #100 ea 11/14/24 Unknown Rx 5/16 (Pen Needle) cephalexin 500 mg capsule 500 mg PO Q6 #40 CAPSULES 11/16/24 Unknown Rx sulfamethoxazole 800 1 tab PO BID 10 days #20 tabs 11/16/24 Unknown Rx mg-trimethoprim 160 mg tablet (Bactrim DS) Allergy/AdvReac Type Severity Reaction Status Date / Time adhesive Allergy Rash Verified 11/16/24 18:26 dicyclomine HCl (From Bentyl) Allergy Hives Verified 11/16/24 18:26 fentanyl Allergy Hives Verified 11/16/24 18:26 Latex, Natural Rubber Allergy Rash Verified 11/16/24 18:26 methadone Allergy Other Verified 11/16/24 18:26 prednisone Allergy Rash Verified 11/16/24 18:26 tramadol HCl (From Ultram) Allergy Hives Verified 11/16/24 18:26 aspirin AdvReac Other Verified 11/16/24 18:26 ketorolac tromethamine (From AdvReac Upset Verified 11/16/24 18:26 Toradol) Stomach Family History Mother Diabetes Heart disease Cancer unknown Asthma Anxiety Arthritis Surgical History H/O eye surgery Social History household members: significant other, children and other details: [facility] housing: house current occupational status: unemployed Smoking Status: Heavy Smoker (>10/day) Tobacco: How many years used: 30 Electronic Cigarette Use: not used quit status: considering quitting alcohol intake: never substance use type: marijuana what type of physical activity do you participate in: walking seatbelt use: always do you feel safe at home: Yes ROS <ROEL Quintero - Last Filed: 11/16/24 19:14> ROS ED ROS Narrative Constitutional: Negative for fever, chills, weight loss, weakness Eyes: Negative for vision loss, vision change, double vision ENT: Negative for any sore throat, ear pain, congestion Cardiovascular: Negative for any chest pain, tightness, palpitations Respiratory: Negative for any cough, sputum production, hemoptysis, dyspnea, dyspnea on exertion, orthopnea Gastrointestinal: Negative for any abdominal pain, nausea, vomiting, diarrhea, constipation, blood in stool, blood in vomit : Negative for any urinary frequency, dysuria, retention, blood in urine Muscle skeletal: Negative for any neck pain, back pain Neurological: Negative for any headache, syncope, dizziness Skin: Negative for any rashes, itching, abrasions, lacerations. Positive for abscess of the right thigh Psychiatric: Negative for any depression, anxiety, stress, suicidal ideation, homicidal ideation Hematologic: Negative for any excessive bruising, easy bleeding EXAM <ROEL Quintreo - Last Filed: 11/16/24 19:14> Physical Exam Narrative Exam Narrative: Vital signs reviewed. Extremities: No peripheral edema, no signs of gross trauma or deformity. Active full range of motion of all extremities. Neuro: Cranial nerves II through XII intact, no focal neurological deficits. Skin: Clean dry and intact with no rash, purpura, petechiae, vesicles or pustules. On the posterior upper thigh just under the buttock midline does show an abscess. There is no head, drainage on my examination. There is some induration, slight cellulitis around the area. Backs/flank: No CVA tenderness, no midline spinal tenderness, no deformity. Psych: Normal mood and affect. No SI, HI or acute psychosis. Const Vital Signs: 11/16/24 18:26 Temperature 97.8 F Temperature Source Temporal Pulse Rate 97 Respiratory Rate 18 Blood Pressure 151/94 H Blood Pressure Mean 113 Pulse Ox 96 Oxygen Delivery Method Room Air <Dr. Ivon Garcia DO - Last Filed: 11/28/24 14:41> Physical Exam Const Vital Signs: 11/16/24 18:26 Temperature 97.8 F Temperature Source Temporal Pulse Rate 97 Respiratory Rate 18 Blood Pressure 151/94 H Blood Pressure Mean 113 Pulse Ox 96 Oxygen Delivery Method Room Air MDM <ROEL Quintero - Last Filed: 11/16/24 19:14> [facility] Treatment and Re-Evaluation :: Differential diagnosis includes however is not limited to: Abscess formation, Greta's gangrene, cellulitis, adenitis suppurativa Patient appears generally well, vital signs are stable, patient is nontoxic-appearing. Presenting to the emergency department with complaints of abscess to the right posterior thigh. I was able to use the ultrasound, there was a small fluid collection. I was able to anesthetize the area with lidocaine with epinephrine. I was able to cleanse the area with alcohol. I did make a small incision 0.5 cm, only slight amount of discharge expelled. I was then able grossly underneath it and make a 1 cm incision significant more drainage was expelled. I was able to use a forceps to break up loculations. Patient tolerated well. At this time, patient restarted on Keflex, Bactrim. He will follow-up outpatient. He was given strict return precaution. All questions answered, stable for discharge. <Dr. Ivon Garcia, DO - Last Filed: 11/28/24 14:41> [facility] Treatment and Re-Evaluation :: Differential diagnosis includes however is not limited to: Abscess formation, Greta's gangrene, cellulitis, adenitis suppurativa Patient appears generally well, vital signs are stable, patient is nontoxic-appearing. Presenting to the emergency department with complaints of abscess to the right posterior thigh. I was able to use the ultrasound, there was a small fluid collection. I was able to anesthetize the area with lidocaine with epinephrine. I was able to cleanse the area with alcohol. I did make a small incision 0.5 cm, only slight amount of discharge expelled. I was then able grossly underneath it and make a 1 cm incision significant more drainage was expelled. I was able to use a forceps to break up loculations. Patient tolerated well. At this time, patient restarted on Keflex, Bactrim. He will follow-up outpatient. He was given strict return precaution. All questions answered, stable for discharge. I have personally performed a face to face assessment of the patient and have reviewed the MITRA Note. I performed a substantive portion of the visit including all aspects of the following. My berrios findings include: History is patient is a 44-year-old male with history of diabetes mellitus as well as prior abscesses and presumed MRSA presenting with intermittent drainage and increased pain of his right posterior thigh/lower buttocks. No fever or chills reported. On exam patient is well-appearing. Heart regular rate and rhythm, easy respirations. Abdomen soft and nontender. Patient has area of skin induration and fluctuance with some mild overlying erythema at the [place] cellulitis of the right proximal posterior/medial thigh just below the buttocks. It does not track towards the perineum. No associated crepitus. Bedside ultrasound performed by myself does show fluid collection that tracks cranial. I&D performed by nurse practitioner and he was able to break up multiple loculations. Patient will be placed on antibiotics especially as he is a diabetic (Bactrim and Keflex). Culture is sent. Patient is given return precautions. Discharged home in stable condition. Counseled on wound care and continue warm soaks. Other additions or changes: [None] Discharge Plan Triage Chief Complaint: Abscess ED Midlevel Provider: Polo Solano ED Provider: Ivon Garcia Dx/Rx/DC Orders Clinical Impression: Abscess of right thigh, Cellulitis, History of diabetes mellitus, type II Instructions: ED Abscess Incision And Drainage, ED Cellulitis Prescriptions: New cephalexin 500 mg capsule 500 mg PO Q6 Qty: 40 0RF sulfamethoxazole-trimethoprim [Bactrim DS] 800-160 mg tablet 1 tab PO BID 10 Days Qty: 20 0RF No Action (DME) FreeStyle Roxi 2 [place] Misc See Rx Instructions .Route Qty: 1 0RF Rx Instructions: As directed (DME) FreeStyle Roxi 2 Sensor Kit See Rx Instructions .Route Qty: 3 2RF Rx Instructions: As directed lisinopril 10 mg tablet 10 mg PO DAILY Qty: 90 0RF dulaglutide 3 mg/0.5 mL pen injector 3 mg subcut QWEEK Qty: 6 0RF insulin lispro 100 unit/mL insulin pen 22 unit subcut TID Qty: 60 0RF Rx Instructions: Take 22 units with each meal If sugars are between 150-199: take an extra 2 units If between 200-249: take an extra 4 units If between 250-299: take an extra 6 units If between 300-349: take an extra 8 units If between 350-399: take an extra 10 units If over 400: take 10 units and call PCP insulin glargine [Lantus Solostar U-100 Insulin] 100 unit/mL (3 mL) insulin pen 42 unit subcut BID Qty: 76 0RF (DME) blood pressure monitor Kit See Rx Instructions .Route Qty: 1 0RF Rx Instructions: As directed (DME) FreeStyle Roxi 3 [place] Misc See Rx Instructions .Route Qty: 1 0RF Rx Instructions: As directed (DME) FreeStyle Roxi 3 Sensor Device See Rx Instructions .Route Qty: 1 5RF Rx Instructions: As directed (DME) pen needle, diabetic [Pen Needle] 31 gauge x 5/16 needle See Rx Instructions .Route Qty: 100 3RF Rx Instructions: As directed five times daily; DMII (E11.9) Primary Care Provider: Katia Belle Referrals: Katia Belle MD [Primary Care Provider] - Activity Restrictions/Additional Instructions: Please keep the area clean and dry. When you are sleeping you may put a 2 x 2 or 4 x 4 there. You have them to go home with. Use warm moist heat 3-4 times a day, if the area is getting worse, you become more fevers or chills or worsening pain please return Print Language: Chinese Disposition Disposition: Home, Self Care Discharge Date/Time: 11/16/24 19:20
[2024-11-16] MEDS: Smz/Tmp Ds Tablet 1 TABLET PO (19:15)
[2024-11-16] MEDS: Cephalexin 250 MG Capsule 500 MG PO (19:15)
[2024-11-16 19:17] VITALS: BP 143/86; PULSE 96; RESP 18; TEMP 36.7; O2SAT 97
== END 2024-11-16 19:20 | disposition home or self-care (01) ==
PROVIDERS: Emergency Provider Emergency Medicine; PCP Internal Medicine; Visit Provider Emergency Medicine
DX: L03.115 Cellulitis of right lower limb (principal); M31.19 Other thrombotic microangiopathy; E11.9 Type 2 diabetes mellitus without complications; Z79.4 Long term (current) use of insulin; L02.415 Cutaneous abscess of right lower limb; E66.9 Obesity, unspecified; F17.200 Nicotine dependence, unspecified, uncomplicated; F32.A Depression, unspecified; F41.9 Anxiety disorder, unspecified; Z79.85 Long-term (current) use of injectable non-insulin antidiabetic drugs; Z79.899 Other long term (current) drug therapy
CPT/HCPCS: 10061; 87070; 87077; 87205; 99283

== ENCOUNTER 2024-11-30 19:25 | Emergency (ER) | payer MEDICAID, SELFPAY ==
[2024-11-30 19:26] VITALS: BP 142/116; PULSE 102; RESP 16; TEMP 36.1; O2SAT 99; BMI 44.7
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
[2024-11-30] MEDS: cycloBENZAPRine HCl 10 MG Tablet PO (21:20)
[2024-11-30 21:23] VITALS: BP 157/91; PULSE 92; RESP 16; TEMP 36.6; O2SAT 98
== END 2024-11-30 21:26 | disposition home or self-care (01) ==
PROVIDERS: Emergency Provider Emergency Medicine; PCP Internal Medicine; Visit Provider Emergency Medicine
DX: S39.012A Strain of muscle, fascia and tendon of lower back, initial encounter (principal); E11.9 Type 2 diabetes mellitus without complications; Z79.4 Long term (current) use of insulin; S16.1XXA Strain of muscle, fascia and tendon at neck level, initial encounter; F17.200 Nicotine dependence, unspecified, uncomplicated; V43.52XA Car driver injured in collision with other type car in traffic accident, initial encounter; Y92.410 Unspecified street and highway as the place of occurrence of the external cause; Z79.85 Long-term (current) use of injectable non-insulin antidiabetic drugs
CPT/HCPCS: 72040; 72100; 99282

== ENCOUNTER 2025-04-07 21:24 | Emergency (ER) | payer MEDICAID, SELFPAY ==
[2025-04-07 21:24] VITALS: BP 115/80; PULSE 96; RESP 20; TEMP 36.6; O2SAT 97; BMI 44.4
--- NOTE | 2025-04-07 21:36 | RAD_ITS ---
PROCEDURE: SHOULDER MIN 2 VIEWS 04/07/2025 REASON FOR EXAM: PAIN TECHNIQUE: SHOULDER MIN 2 VIEWS COMPARISON: Left shoulder radiographs on 08/08/2018 FINDINGS: No fracture or dislocation. There are punctate corticated calcifications adjacent to the superior rim of the glenoid. Joint spaces are maintained. Bone mineral density is subjectively normal. The visualized lung is unremarkable. RAD/Shoulder min 2 Views IMPRESSION: Calcifications adjacent to the superior rim of the glenoid, likely the sequela of calcific tendinopathy. Reading Location: [id number]
--- NOTE | 2025-04-07 23:24 | EDS_ITS ---
HPI History of Present Illness HPI Narrative: Patient presents with left shoulder pain that has been constant for the past month. Patient states it is gradually getting worse. Patient states it is constant. Patient describes it as sharp and stabbing. Patient states it is worse when he wakes up in the morning. Patient states it is worse with any movement. Patient states nothing seems to help with it. Patient denies any paresthesias or weakness. Patient states it feels similar to the pain he had in his right shoulder when he had calcific tendinitis. Patient states he had injections done at that time which helped. 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 Patient states he needs x-rays so he can see his specialist. Chief Complaint: Upper Extremity Injury Informant: patient Onset/Context/Timing Onset: Month(s) (1) Context: Gradual Onset Timing: Continuous Quality of Pain: Sharp and Stabbing Location: Left shoulder Worsened by: Elevation, movement Relieved by: Nothing Associated Symptoms Associated Symptoms: Negative for Parasthesia, Weakness or Loss of Funtion PFSH PFSH Medical History Vision problems History of ulcer disease Hearing problem History of blood transfusion Back problem Acute arthritis Seasonal allergies Substance abuse Anxiety Depression Smoker Migraines Diabetes TTP (thrombotic thrombocytopenic purpura) Home Medications ?Medication ?Instructions ?Recorded ?Last Taken ?Type flash glucose scanning reader #1 ea 02/28/24 Unknown R x (FreeStyle Roxi 2 [place]) flash glucose sensor (FreeStyle #3 ea 07/30/24 Unknown Rx Roxi 2 Sensor kit) blood-glucose,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,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 #1 ea 09/11/24 Unknown Rx (FreeStyle Roxi 3 [place]) blood pressure monitor #1 ea 10/29/24 Unknown Rx insulin lispro 100 unit/mL 22 unit (0.22 mL) subcut TI D #60 mL 01/15/25 Unknown Rx subcutaneous pen lisinopril 10 mg tablet 10 mg PO DAILY #90 tabs 12/10 Unknown Rx pen needle, diabetic 31 gauge x #100 ea 01/27/25 Unkno wn Rx 02/28 (Pen Needle) dulaglutide 4.5 mg/0.5 mL 4.5 mg (0.5 mL) subcut QWEEK #2 mL 02/10/25 Unknown Rx subcutaneous pen injector insulin glargine 100 unit/mL (3 35 unit (0.35 mL) subc ut BID #76 mL 02/10/25 Unknown Rx mL) subcutaneous pen (Lantus Solostar U-100 Insulin) blood-glucose sensor (FreeStyle #1 KIT 03/11/25 Unknow n Rx Roxi 3 Sensor device) Allergy/AdvReac Type Severity Reaction Status Date / Time adhesive Allergy Rash Verified 04/07/25 21:24 dicyclomine HCl (From Bentyl) Allergy Hives Verified 04/07/25 21:24 fentanyl Allergy Hives Verified 04/07/25 21:24 Latex, Natural Rubber Allergy Rash Verified 04/07/25 21:24 methadone Allergy Other Verified 04/07/25 21:24 prednisone Allergy Rash Verified 04/07/25 21:24 tramadol HCl (From Ultram) Allergy Hives Verified 04/07/25 21:24 aspirin AdvReac Other Verified 04/07/25 21:24 ketorolac tromethamine (From AdvReac Upset Verified 04/07/25 21:24 Toradol) Stomach Family History Mother Diabetes Heart disease Cancer unknown Asthma Anxiety Arthritis Surgical History H/O eye surgery Social History household members: significant other, children and other details: [facility] housing: house current occupational status: unemployed Smoking Status: Current every day smoker tobacco type: cigarettes Tobacco: How many years used: 30 Electronic Cigarette Use: not used quit status: not considering quitting alcohol intake: never substance use type: former substance user and marijuana what type of physical activity do you participate in: walking seatbelt use: always do you feel safe at home: Yes ROS ROS ED Constitutional Constitutional ED: Denies chills or fever(s) Eyes Eyes: Denies blurry vision or change in vision ENT ENT ED: Denies rhinorrhea or sore throat Cardiovascular Cardiovascular: Denies chest pain or palpitations Respiratory/Chest Respiratory/Chest: Denies cough or dyspnea Gastrointestinal Gastrointestinal: Denies nausea or vomiting Genitourinary Genitourinary ED: Denies dysuria or hematuria Musculoskeletal Musculoskeletal: Reports back pain; Denies neck pain Integumentary Denies abscess or rash Neurologic Neurologic: Denies headache(s) or weakness Allergic/Immunologic Allergic/Immunologic ED: Denies mouth swelling or urticaria EXAM Physical Exam Const Vital Signs: 04/07/25 21:24 Temperature 97.8 F Temperature Source Temporal Pulse Rate 96 Respiratory Rate 20 H Blood Pressure 115/80 Blood Pressure Mean 91 Pulse Ox 97 Positive well nourished and well developed General Appearance ED: well developed and NAD HEENT Reports moist mucous membranes Neck full ROM and supple Extremity Extremity Narrative: There is tenderness to palpation over the left shoulder. There is no deformity noted. Range of motion was limited in all motions secondary to pain. Strength is 5/5 in the radial, median, and ulnar areas. Sensation was intact to light touch in the radial, median, and ulnar areas.. Radial pulses are equal bilaterally. Neuro oriented x3, CN's II-XII intact bilaterally, moves all extremities, no focal motor deficits and no sensory deficits noted Sensorium / Orientation: alert Motor Exam: strength 5/5 throughout Psych mental status grossly normal MDM MDM MDM Narrative Medical decision making narrative: Differential diagnosis includes fracture, dislocation, sprain, tendinitis, and contusion. X-rays of the left shoulder will be obtained to assess for fracture, dislocation, and degenerative arthritis. Radiography Diagnostic Testing: Clinical Impression(s) from Imaging Studies Shoulder X-Ray 04/07/25 21:36 IMPRESSION: Calcifications adjacent to the superior rim of the glenoid, likely the sequela of calcific tendinopathy. Reading Location: [facility] X-rays the shoulder were obtained. There are 4 views. On my independent interpretation, there is no acute fracture or dislocation noted. There are calcifications adjacent to the superior rim of the clinoid, likely calcific tendinitis. Radiologist also interpreted the x-rays and agrees. Treatment and Re-Evaluation Narrative: Patient was advised of his findings. Patient was instructed to use ice to the area. Patient was instructed to take Tylenol or ibuprofen as needed for pain. Patient was instructed to follow-up with his primary care physician in 5 to 7 days. Patient was also instructed to follow-up with his specialist as scheduled. Patient understood and was agreeable with the plan. All questions were answered. Discharge Plan Triage Chief Complaint: Upper Extremity Injury ED Provider: Eliecer Cortez Dx/Rx/DC Orders Clinical Impression: Left shoulder tendinitis, Type 2 diabetes mellitus Instructions: ED Tendonitis, ED Shoulder Pain, Uncertain Cause Prescriptions: No Action (DME) FreeStyle Roxi 2 [place] Misc See Rx Instructions .Route Qty: 1 0RF Rx Instructions: As directed (DME) FreeStyle Roxi 2 Sensor Kit See Rx Instructions .Route Qty: 3 2RF Rx Instructions: As directed (DME) blood pressure monitor Kit See Rx Instructions .Route Qty: 1 0RF Rx Instructions: As directed dulaglutide 4.5 mg/0.5 mL pen injector 4.5 mg subcut QWEEK Qty: 2 1RF insulin glargine [Lantus Solostar U-100 Insulin] 100 unit/mL (3 mL) insulin pen 35 unit subcut BID Qty: 76 0RF (DME) FreeStyle Roxi 3 [place] Misc See Rx Instructions .Route Qty: 1 0RF Rx Instructions: As directed insulin lispro 100 unit/mL insulin pen 22 unit subcut TID Qty: 60 0RF Rx Instructions: Take 22 units with each meal If sugars are between 150-199: take an extra 2 units If between 200-249: take an extra 4 units If between 250-299: take an extra 6 units If between 300-349: take an extra 8 units If between 350-399: take an extra 10 units If over 400: take 10 units and call PCP lisinopril 10 mg tablet 10 mg PO DAILY Qty: 90 0RF (DME) pen needle, diabetic [Pen Needle] 31 gauge x 5/16 needle See Rx Instructions .Route Qty: 100 3RF Rx Instructions: As directed five times daily; DMII (E11.9) (DME) FreeStyle Roxi 3 Sensor Device See Rx Instructions .ROUTE .COMPLEX Qty: 1 5RF Dose Instruction: CHANGE sensor every 14 DAYS DIRECTED Rx Instructions: CHANGE sensor every 14 DAYS DIRECTED Primary Care Provider: Katia Belle Referrals: Katia Belle MD [Primary Care Provider] - 5-7 Days Print Language: Gren[place] Disposition Disposition: Home, Self Care
--- OUTSIDE RECORDS SUMMARY | 2025-04-07 23:26 | XMS RPT_ITS | CCD ---
Author Organization [facility] Care Team Providers Care Snap Shearer Name Role Phone Lonnie Braden Primary Care Provider Izabela Turner Primary Care Provider [phone] PHYSICIAN, NONE Primary Care Physician Unavailab le Polo Castillo T Unavailable Masoud POLK-JARRETT, Polo T Primary Care Provider [phone] TOD ARROYO MD Attending Unavail able PHYSICIAN, NONE Primary Care Unavailable CHINYERE KASPER DO Attending Unavailable PHYSICIAN, NONE Primary Care Unavailable Care Physician, No Primary Primary Care Provider Unavailable Care Physician, No Primary Referring Provider Un available Dr. Jean Marie Kumar Attending Provider [phone] Dr. Jorge Luis Oviedo Attending Provider MAINOR FERNANDEZ DO Attending Unavailable MAINOR FERNANDEZ DO Primary Care Unavailable MAINOR FERNANDEZ DO Admitting Unavailable HRPOLO SMITH Attending Unavailable GENERIC PROVIDER, NO ASSIGNED PCP Primary Care Unavailable Masoud BOWEN, Polo T Unavailable Masoud POLK-JARRETT, Polo T Primary Care Provider [phone] Care Physician, No Primary Primary Care Provider Unavailable Care Physician, No Primary Referring Provider Un available Dr. Jean Marie Kumar Attending Provider [phone] Dr. Jorge Luis Oviedo Attending Provider [place] ADLER Attending Unavailable JOHNNYIZABELA MYERS Primary Care Unavailable IZABELA TURNER Primary Care Unavailable AKBAR BOOGIE Attending Unavailable Unavailable Primary Care Provider UnavailKatia Mercado Attending Unavailable Hawthorne, Katia Primary Care Unavailable Yoshi, Katia Referring Unavailable Yoshi, Katia Attending Unavailable Hawthorne, Katia Primary Care Unavailable Ashok Norton Attending Unavailable Care Physician, No Primary Primary Care Unava ilable Care Physician, No Primary Primary Care Unava ilable DonaesDesmond Attending Unavailable Yoshi, Katia Primary Care Unavailable Jo Dumont Attending Unavailable Hawthorne, Katia Primary Care Unavailable Provider, Ed Physician Attending Unavailab le Care Physician, No Primary Primary Care Unava ilable Desmond Mendoza Attending Unavailable Care Physician, No Primary Primary Care Unava ilable Karli Reyes Attending Unavailable Mainor Payan Consulting Unavailable Mainor Payan Admitting Unavailable Ivon Garcia Attending Unavailable Hawthorne, Katia Primary Care Unavailable El Churchill Attending Unavailable Care Physician, No Primary Primary Care Unava ilable Hawthorne, Katia Primary Care Unavailable Eliecer Cortez Attending Unavailable Hawthorne, Katia Primary Care Unavailable Blane Carlos Attending Unavailable Care Physician, No Primary Primary Care Unava ilable Mainor Payan Attending Unavailable Mainor Payan Consulting Unavailable Mainor Payan Admitting Unavailable Hawthorne, Katia Primary Care Unavailable Josi Saravia Attending Unava ilable Yoshi, Katia Primary Care Unavailable Hawthorne, Katia Referring Unavailable Madiha Breen Attending Unavailable Care Physician, No Primary Referring Unava ilable Yoshi, Katia Attending Unavailable Care Physician, No Primary Primary Care Unava ilable Sam Velasco Attending Unavailable Care Physician, No Primary Primary Care Unava ilable Yoshi, Katia Primary Care Unavailable Hawthorne, Katia Referring Unavailable Hawthorne, Katia Attending Unavailable Care Physician, No Primary Referring Unava ilable Care Physician, No Primary Primary Care Unava ilable James Toney Attending Unavailable Hawthorne, Katia Attending Unavailable Yoshi, Katia Primary Care Unavailable Yoshi, Katia Referring Unavailable Hawthorne, Katia Primary Care Unavailable Hawthorne, Katia Referring Unavailable Yoshi, Katia Attending Unavailable Care Physician, No Primary Primary Care Unava ilable Sam Velasco Attending Unavailable Sam Velasco Consulting Unavailable Sam Velasco Admitting Unavailable Care Physician, No Primary Primary Care Unava ilable Desmond Mendoza Attending Unavailable GASTON, FRAN W Referring Unavailable MASOUD, POLO T Primary Care Unavailable GASTONFRAN W Referring Unavailable MASOUD, POLO T Primary Care Unavailable GASTONFRAN W Attending Unavailable MASOUD, POLO T Primary Care Unavailable SELF, SELF Referring Unavailable GASTONFRAN W Attending Unavailable AURORAANDABDIRAHMAN R Attending Unavailable CATALANDABDIRAHMAN R Referring Unavailable MASOUD, POLO T Primary Care Unavailable AURORAANDABDIRAHMAN Attending Unavailable MASOUD, POLO T Primary Care Unavailable MASOUD, POLO T Referring Unavailable CVETANOVICHJOVANY Referring Unavailab le MASOUD, POLO T Primary Care Unavailable MONIQUE TANNER Attending Unavailable CVETANOVICHJOVANY Attending Unavailab le MASOUD, POLO T Primary Care Unavailable SELF, SELF Referring Unavailable Allergies Allergy Classification Reported Allergen(s) Allergy Type Date of Onset Reaction(s) Facility (14 sources) Adhesive agent; Translations: [adhesive] Allergy to substance 2 [facility] (16 sources) Aspirin; Translations: [aspirin] Drug Allergy 5 Other, thins blood [facility] (20 sources) Dicyclomine; Translations: [DICYCLOMINE HCL] Drug Allergy 0 [facility] (20 sources) fentaNYL; Translations: [fentanyl] Drug Allergy 3 Nausea Only, Hives [facility] (14 sources) Ketorolac; Translations: [ketorolac tromethamine] Drug Allergy 2 Upset Stomach [facility] (20 sources) Methadone; Translations: [methadone] Drug Allergy 2 Nausea and Vomiting, Hives, Other [facility] Work Phone: (20 sources) Morphine; Translations: [morphine] Drug Allergy 0 [facility] (14 sources) natural latex rubber; Translations: [Latex, Natural Rubber] Allergy to substance 2 [facility] (20 sources) predniSONE; Translations: [prednisone] Drug Allergy 0 Nausea and Vomiting [facility] Work Phone: (14 sources) traMADol; Translations: [tramadol HCl] Drug Allergy 2 Hives [facility] (20 sources) Aluminum aspirin Drug Allergy 9 [facility] (16 sources) Latex; Translations: [LATEX] Propensity to adverse reactions to drug 1 rash [facility] (20 sources) Propoxyphene Drug Allergy 1 [facility] (20 sources) traMADol; Translations: [tramadol] Drug Allergy 5 Dyspnea, Hives, Shortness of breath, Dyspnea (finding) [facility] (20 sources) Aspirin Buffered Propensity to adverse reactions to drug 1 Swelling [facility] (13 sources) *Adhesive Tape Propensity to adverse reactions 9 Rash [facility] (6 sources) Adhesive Tape Drug Allergy 2 Rash [facility] (5 sources) Ketorolac; Translations: [KETOROLAC] Allergy to substance 5 [facility] (16 sources) Prednisone Allergy to substance 0 Nausea And Vomiting, Rash [facility] (4 sources) Fentanyl And Related Drug Intolerance 6 Hives, Nausea Only [facility] (2 sources) cyclobenzaprine; Translations: [cyclobenzaprine ] Drug Allergy [facility] (2 sources) Dicyclomine; Translations: [dicyclomine] Drug Allergy rash [facility] (2 sources) GRAPEFRUIT EXTRACT Drug Allergy [facility] (2 sources) Ketorolac; Translations: [ketorolac] Drug Allergy Dyspnea (finding) [facility] (2 sources) Naproxen; Translations: [naproxen] Drug Allergy [facility] (12 sources) gadobutrol Drug Allergy 3 Itching, Nausea and Vomiting [facility] (1 source) Aspirin Drug Allergy [facility] Repository (1 source) NSAID Drug allergy (disorder) [facility] Repository (1 source) ALLERGIES NOT ON FILE; Translations: [ALLERGIES NOT ON FILE] Propensity to adverse reactions (disorder) [facility] 2 Repository (1 source) Aspirin Drug Allergy 5 [facility] Repository (1 source) fentaNYL Drug Allergy 5 [facility] Repository (1 source) Methadone Drug Allergy 5 [facility] Repository (1 source) predniSONE Drug Allergy 5 [facility] Repository Medications Current Medications Medication Drug Class(es) [...] for headache Start Date: 07/10/18 Status: Ordered cephalexin 250 mg oral capsule (12 sources) Cephalosporin Antibacterial Start: 03-17-2024 End: 03-27-2024 cephalexin (Keflex) 250 MG capsule Take 1 capsule (250 mg) by mouth in the morning and 1 capsule (250 mg) at noon and 1 capsule (250 mg) in the evening and 1 capsule (250 mg) before bedtime. Do all this for 10 days. 40 capsule 0 03/17/2024 03/27/2024 Active Start: 10-18-2022 End: 11-30-2023 take 500 mg by mouth every six hours Cephalexin Discontinued 500 MG PO EVERY 6 HOURS October 18, 2022 1:00am November 30, 2023 4:39am DISABILITY PLACARD (12 sources) Start: 10-26-2023 DISABILITY PAULINA CARD Disability placard end date 10/26/28 1 Each 10/26/2023 Active Start: 10-26-2023 DISABILITY PAULINA CARD Disability placard end date 10/26/28 1 Each 0 10/26/2023 Active GLUCOSE MONITOR PRESCRIPTION (5 sources) Start: 02-28-2024 GLUCOSE MONITO R PRESCRIPTION Use as instructed 1 Each 02/28/2024 Active 3 ml insulin glargine 100 unt/ml pen injector (20 sources) Insulin Analog Start: 02-23-2024 Lantus SoloSta r 100 UNIT/ML Solution Pen-injector injection Inject 30 Units under the skin daily every morning. 02/23/2024 Active Start: 04-26-2022 inject 20 [IU] by high bcutaneous injection once daily insulin glargine 100 UNIT/ML Solution Pen-injector injection Indications: Type 2 diabetes mellitus without complication, with long-term current use of insulin Inject 20 Units under the skin daily. 0 04/26/2022 Active Start: 03-22-2022 inject 25 [IU] by high bcutaneous injection once daily insulin glargine 100 UNIT/ML Solution Pen-injector injection Indications: Type 2 diabetes mellitus without complication, with long-term current use of insulin Inject 25 Units under the skin daily. 0 03/22/2022 Active Start: 02-08-2022 inject 48 [IU] by high bcutaneous injection once daily insulin glargine 100 UNIT/ML Solution Pen-injector injection Indications: Type 2 diabetes mellitus without complication, with long-term current use of insulin Inject 48 Units under the skin daily. 0 02/08/2022 Active Start: 12-28-2021 End: 02-08-2022 inject 30 [IU] by subcutaneous injection twice daily insulin glargine 100 UNIT/ML Solution Pen-injector injection Indications: Type 2 diabetes mellitus without complication, with long-term current use of insulin Inject 30 Units under the skin 2 times daily. 30 mL 3 12/28/2021 02/08/2022 Discontinued Start: 06-19-2021 End: 11-30-2023 Insulin Glargine (Lantus Elizabeth ostar U-100 Insulin) 100 unit/mL (3 mL) insulin pen Discontinued 30 UNIT SC TWICE A DAY September 30, 2021 5:23pm November 30, 2023 4:40am Insulin Glargine-Yfgn (1 source) Start: 02-23-2024 Insulin Glargine-Yfgn Active 30 UNIT SC DAILY February 23, 2024 12:00am isopropyl alcohol 0.7 ml/ml medicated pad (20 sources) Start: 11-29-2021 Alcohol Swabs Pads Use to give insulin up to 5 times daily 200 Each 11 11/29/2021 Active meloxicam 7.5 mg oral tablet (4 sources) Nonsteroidal Anti-inflammatory Drug Start: 05-13-2022 End: 06-12-2022 take 1 tablet by mouth once daily meloxicam 7.5 MG tablet Take 1 tablet by mouth daily. 30 tablet 1 05/13/2022 Active ondansetron 8 mg disintegrating oral tablet (20 sources) Serotonin-3 Receptor Antagonist Start: 10-01-2022 End: 01-16-2025 take 1 tablet by mouth every four hours as needed Ondansetron 8 MG Tab Dispersible tablet Take 1 tablet by mouth every 4 hours as needed. 30 tablet 6 01/16/2025 Active Start: 06-09-2022 take 1 tablet by rocio th every four hours as needed ondansetron 8 MG Tab Dispersible tablet Take 1 tablet by mouth every 4 hours as needed. 30 tablet 6 06/09/2022 Active Start: 04-29-2021 take 1 tablet by rocio th every four hours as needed ondansetron 8 MG Tab Dispersible tablet Take 1 tablet by mouth every 4 hours as needed. 30 tablet 6 04/29/2021 Active Pen Needle, Diabetic (1 source) Start: 02-23-2024 Pen Needle, Diabetic Active 0 .Route 100 February 23, 2024 12:00am As directed sulfamethoxazole 800 mg / trimethoprim 160 mg oral tablet (2 sources) Dihydrofolate Reductase Inhibitor Antibacterial, Sulfonamide Antimicrobial Start: 03-17-2024 End: 03-27-2024 take 1 tablet by mouth twice daily sulfamethoxazo le-trimethopri m (Bactrim DS) 800-160 MG tablet Take 1 tablet by mouth 2 times daily for 10 days. 20 tablet 0 03/17/2024 03/27/2024 Active Completed/Discontinued Medications Medication Drug Class(es) Dates Sig (Normalized) Sig (Original) acetaminophen 325 mg oral tablet (1 source) Start: 02-25-2024 End: 02-25-2024 take 1 tablet by mouth every six hours as needed acetaminophen 325 mg / HYDROcodone bitartrate 5 mg oral tablet (20 sources) Opioid Agonist Start: 11-30-2023 End: 02-25-2024 hydroCODone-acetami nophen 5-325 MG tablet 11/30/2023 02/25/2024 Discontinued (Therapy completed) Start: 10-29-2023 End: 12-01-2023 take 1 tablet by mouth every six hours Hydrocodone-Acetaminophen Active 1 TABLE T PO EVERY 6 HOURS 12 November 30, 2023 Start: 09-16-2023 End: 09-19-2023 take 1 tablet by mouth every six hours as needed for pain HYDROcodone-acetaminophen ([place]) 5-325 MG tablet Indications: Gluteal abscess Take 1 tablet by mouth every 6 hours as needed for severe pain (7-10) for up to 3 days. 10 tablet 0 09/16/2023 09/19/2023 Active Start: 05-23-2023 End: 12-01-2023 take 1 tablet by mouth every four hours as needed Hydrocodone-Acetaminophen Discontinued 1 TABLET PO EVERY 4 HOURS NEEDED 10 May 23, 2023 December 01, 2023 11:37am acetaminophen 325 mg / oxyCODONE hydrochloride 5 mg oral tablet (4 sources) Opioid Agonist Start: 03-17-2024 End: 03-17-2024 oxyCODONE-acetaminophen (Percocet) 5-325 MG per tablet 2 tablet Start: 09-16-2023 End: 09-16-2023 oxyCODONE-acetaminophen (Per cocet) 5-325 MG per tablet 1 tablet aluminum hydroxide 40 mg/ml / magnesium hydroxide 40 mg/ml / simethicone 4 mg/ml oral suspension (1 source) Start: 02-25-2024 End: 02-25-2024 take 30 mL by mouth every six hours as needed atorvastatin 10 mg oral tablet (19 sources) HMG-CoA Reductase Inhibitor Start: 09-29-2022 End: 02-25-2024 take 1 tablet by mouth once daily Atorvastatin 10 MG tablet Indications: Type 2 diabetes mellitus without complication, with long-term current use of insulin Take 1 tablet by mouth daily. 90 tablet 1 09/29/2022 02/25/2024 Discontinued (Therapy completed) Start: 03-30-2022 take 1 tablet by rocio th once daily atorvastatin 10 MG tablet Indications: Type 2 diabetes mellitus without complication, with long-term current use of insulin Take 1 tablet by mouth daily. 90 tablet 1 03/30/2022 Active busPIRone hydrochloride 10 mg oral tablet (20 sources) Start: 09-30-2021 End: 11-30-2023 take 10 mg by mouth three times daily Buspirone Discontinued 10 MG PO THREE TIMES A DAY September 30, 2021 1:00am November 30, 2023 4:39am calcium chloride 0.0014 meq/ml / potassium chloride 0.004 meq/ml / sodium chloride 0.103 meq/ml / sodium lactate 0.028 meq/ml injectable solution (1 source) Start: 02-25-2024 End: 02-25-2024 2,000 mL, Intravenous, ONCE, 1 dose, On 02/25/24 at 0600, Fluid Bolus Continuous Blood Gluc Hip Hop Performers (FreeStyle Roxi 14 Day [place]) Device (20 sources) Start: 09-30-2021 End: 02-25-2024 Continuous Blood Gluc Hip Hop Performers (FreeStyle Roxi 14 Day [place]) Device Indications: Type 2 diabetes mellitus without complication, with long-term current use of insulin Use to check blood sugar using the Freestyle Roxi sensors 1 Each 09/30/2021 02/25/2024 Discontinued (Therapy completed) Start: 09-30-2021 Continuous Blo od Gluc Hip Hop Performers (FreeStyle Roxi 14 Day [place]) Device Indications: Type 2 diabetes mellitus without complication, with long-term current use of insulin Use to check blood sugar using the Freestyle Roxi sensors 1 Each 09/30/2021 Active Start: 09-30-2021 Continuous Blo od Gluc Hip Hop Performers (FreeStyle Roxi 14 Day [place]) Device Indications: Type 2 diabetes mellitus without complication, with long-term current use of insulin Use to check blood sugar using the Freestyle Roxi sensors 1 Each 09/30/2021 Active Continuous Blood Gluc Sensor (FreeStyle Roxi 14 Day Sensor) Misc (20 sources) Start: 03-26-2023 End: 02-25-2024 Continuous Blood Gluc Sensor (FreeStyle Roxi 14 Day Sensor) [facility] Indications: Type 2 diabetes mellitus without complication, with long-term current use of insulin Use to check blood sugars using the Freestyle Roxi [place]. Change sensor every 14 days. 2 Each 03/26/2023 02/25/2024 Discontinued (Therapy completed) Start: 03-26-2023 Continuous Blo od Gluc Sensor (FreeStyle Roxi 14 Day Sensor) [facility] Indications: Type 2 diabetes mellitus without complication, with long-term current use of insulin Use to check blood sugars using the Freestyle Roxi [place]. Change sensor every 14 days. 2 Each 03/26/2023 Active Start: 05-20-2022 Continuous Blo od Gluc Sensor (FreeStyle Roxi 14 Day Sensor) Misc Indications: Type 2 diabetes mellitus without complication, with long-term current use of insulin Use to check blood sugars using the Freestyle Roxi [place]. Change sensor every 14 days. 2 Each 05/20/2022 Active Start: 09-30-2021 Continuous Blo od Gluc Sensor (FreeStyle Roxi 14 Day Sensor) Misc Indications: Type 2 diabetes mellitus without complication, with long-term current use of insulin Use to check blood sugars using the Freestyle Roxi [place]. Change sensor every 14 days. 2 Each 09/30/2021 Active CUSTOM MEDICATION (14 sources) Start: 09-23-2022 End: 02-25-2024 CUSTOM MEDICATION Indication s: Insertional Achilles tendinopathy , Encounter for diabetic foot exam , Hammertoe, bilateral Diabetic shoes with 3 pairs of inserts As part of a comprehensive diabetic footcare program, the patient needs diabetic shoes and or foot orthoses to protect skin integrity. The patient has a diagnosis of diabetes and as such requires specialized accommodative footwear for effective diabetic foot management. The patient will follow-up with their certifying diabetes physician for routine diabetes management. 1 Each 09/23/2022 02/25/2024 Discontinued (Therapy completed) Start: 09-23-2022 CUSTOM MEDICAT ION Indications: Insertional Achilles tendinopathy , Encounter for diabetic foot exam , Hammertoe, bilateral Diabetic shoes with 3 pairs of inserts As part of a comprehensive diabetic footcare program, the patient needs diabetic shoes and or foot orthoses to protect skin integrity. The patient has a diagnosis of diabetes and as such requires specialized accommodative footwear for effective diabetic foot management. The patient will follow-up with their certifying diabetes physician for routine diabetes management. 1 Each 09/23/2022 Active Start: 09-23-2022 CUSTOM MEDICAT ION Indications: Insertional Achilles tendinopathy , Encounter for diabetic foot exam , Hammertoe, bilateral Diabetic shoes with 3 pairs of inserts As part of a comprehensive diabetic footcare program, the patient needs diabetic shoes and or foot orthoses to protect skin integrity. The patient has a diagnosis of diabetes and as such requires specialized accommodative footwear for effective diabetic foot management. The patient will follow-up with their certifying diabetes physician for routine diabetes management. 1 Each 0 09/23/2022 Active Start: 09-22-2022 End: 09-23-2022 CUSTOM MEDICATION Indication s: Insertional Achilles tendinopathy , Encounter for diabetic foot exam , Hammertoe, bilateral Diabetic shoes with 3 pairs of inserts As part of a comprehensive diabetic footcare program, the patient needs diabetic shoes and or foot orthoses to protect skin integrity. The patient has a diagnosis of diabetes and as such requires specialized accommodative footwear for effective diabetic foot management. The patient will follow-up with their certifying diabetes physician for routine diabetes management. 1 Each 0 09/22/2022 09/23/2022 Discontinued (Reorder) cyclobenzaprine hydrochloride 10 mg oral tablet (20 sources) Muscle Relaxant Start: 12-12-2023 End: 02-23-2024 take 10 mg by mouth three times daily Cyclobenzaprine Discontinued 10 MG PO THREE TIMES A DAY December 12, 2023 1:00am February 23, 2024 1:08am Start: 05-23-2023 End: 11-30-2023 take 10 mg by mouth three times daily Cyclobenzaprine Discontinued 10 MG PO THREE TIMES A DAY May 23, 2023 12:00am November 30, 2023 4:40am Start: 05-13-2022 End: 07-21-2022 take 1 tablet by mouth three times daily as needed for muscle spasms cyclobenzaprine 5 MG tablet Take 1 tablet by mouth 3 times daily as needed for Muscle spasms for up to 15 days. 45 tablet 0 05/13/2022 07/21/2022 Discontinued (Therapy completed) Start: 01-13-2022 End: 11-30-2023 take 10 mg by mouth twice daily Cyclobenzaprine Discontinued 10 MG PO TWICE A DAY January 13, 2022 12:00am November 30, 2023 4:40am Start: 12-08-2021 End: 04-14-2022 take 2 tablets by mouth twice daily cyclobenzaprine 5 MG tablet Indications: Chronic bilateral low back pain with left-sided sciatica Take 2 tablets by mouth 2 times daily. 60 tablet 0 12/08/2021 04/14/2022 Discontinued Start: 09-30-2021 End: 11-23-2021 take 10 mg by mouth three times daily Cyclobenzaprine Discontinued 10 MG PO THREE TIMES A DAY September 30, 2021 1:00am November 23, 2021 11:01pm diclofenac sodium 75 mg delayed release oral tablet (20 sources) Nonsteroidal Anti-inflammatory Drug Start: 01-12-2024 End: 02-25-2024 take 1 tablet by mouth twice daily diclofenac EC [address] tablet Take 1 tablet by mouth 2 times daily. 30 tablet 01/12/2024 02/25/2024 Discontinued (Therapy completed) Start: 11-10-2023 End: 12-01-2023 Diclofenac Sodium Discontinu ed 2.25 INCH TOPICAL .qd-tid 100 November 10, 2023 5:33am December 01, 2023 11:36am Start: 02-08-2022 End: 07-21-2022 Diclofenac Sodium (Voltaren) 1 % Gel gel Apply 2 g topically 2 times daily as needed. 350 g 1 02/08/2022 07/21/2022 Discontinued (Therapy completed) Start: 01-31-2022 End: 04-14-2022 Diclofenac Sodium 1 % Gel ge l Indications: Chronic bilateral low back pain with left-sided sciatica Apply 2 g topically 4 times daily. 350 g 0 01/31/2022 04/14/2022 Discontinued 0.5 ml dulaglutide 3 mg/ml auto-injector (20 sources) GLP-1 Receptor Agonist Start: 01-23-2023 End: 02-25-2024 inject 1 mL by subcutaneous injection every week Trulicity 1.5 MG/0.5ML Solution Pen-injector injection Indications: Type 2 diabetes mellitus without complication, with long-term current use of insulin INJECT THE CONTENTS OF 1 PEN SUBCUTANEOUSLY ONCE A WEEK 2 mL 01/23/2023 02/25/2024 Discontinued (Therapy completed) Start: 01-25-2022 inject 0.5 mL by sub cutaneous injection every week Dulaglutide (Trulicity) 1.5 MG/0.5ML Solution Pen-injector injection Indications: Type 2 diabetes mellitus without complication, with long-term current use of insulin Inject 0.5 mL under the skin once a week. 2 mL 02/22/2022 Active Start: 01-06-2022 End: 02-23-2024 Dulaglutide (Trulicity) 0.75 mg/0.5 mL pen injector Discontinued 0.75 MG SC EVERY WEEK January 06, 2022 12:00am February 23, 2024 3:53pm 0.4 ml enoxaparin sodium 100 mg/ml prefilled syringe (1 source) Low Molecular Weight Heparin Start: 02-25-2024 End: 02-25-2024 gabapentin 300 mg oral capsule (4 sources) Anti-epileptic Agent Start: 12-23-2023 End: 02-23-2024 Gabapentin Discontinued 300 MG PO TWICE A DAY December 23, 2023 1:00am February 23, 2024 1:08am 1 twice a day for 3 days then 1 3 times a day glucagon (rdna) 1 mg injection (20 sources) Antihypoglycemic Agent Start: 09-22-2021 End: 02-25-2024 Glucagon, rDNA, (Glucagon Emergency) 1 MG Kit Indications: Type 2 diabetes mellitus without complication, with long-term current use of insulin Use as needed for severe low blood sugar (Hypoglycemia) 3 kit 1 09/22/2021 02/25/2024 Discontinued (Therapy completed) guaiFENesin 20 mg/ml oral solution (1 source) Start: 02-25-2024 End: 02-25-2024 take 400 mg by mouth every six hours as needed insulin glargine-yfgn (SEMGLEE) injection 30 Units (1 source) Start: 02-25-2024 End: 02-25-2024 inject 30 [IU] by subcutaneous injection once daily 30 Units, Subcutaneous, DAILY, First dose on Mon02/25/24 at 0900, Until Discontinued 3 ml insulin lispro 100 unt/ml pen injector (17 sources) Insulin Analog Start: 06-23-2021 End: 02-08-2022 inject 10 [IU] by subcutaneous injection once at bedtime Insulin Lispro, 1 Unit Dial, 100 UNIT/ML Solution Pen-injector 20 Units with a large meal or 10 Units with a small meal PLUS Sliding scale SQ every meal and at bedtime 15 mL 1 06/23/2021 02/08/2022 Discontinued (Alternate therapy) Start: 06-19-2021 End: 11-30-2023 Insulin Lispro (Humalog Kwik pen Insulin) 100 unit/mL Insulin Pen Discontinued 10 UNIT SC 3 TIMES DAILY WITH MEALS June 19, 2021 12:00am November 30, 2023 4:40am 10 units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 reviewed. Extremities: No peripheral edema, no signs of gross trauma or deformity. Active full range of motion of (more content not included)... Normal [facility] Internal Medicine Office Vis iton 10-28-2024 Internal Medicine Office Visit [facility] [address] [place] [address] [place] [address] OFFICE VISIT Date of Service: 10/29/24 MR#: [id number] Acct: [id number] Name: JAIRO ADKINS Jr. Rep #: [id number] : 1980 Provider: Dr. Katia smith MD Age/Sex: 44/M [place] [facility] [place]: Signed Intake Vital Signs 09/04/24 17:42 10/29/24 15:00 Height 5 ft 9 in 5 ft 9 in Weight: 302 lb BMI 44.6 BP 122/86 H Blood Pressure Location Lt brachial Position Sitting Respiration 18 Pulse 100 Pulse Source Monitor Temp 98.0 F Temp Source Temporal Pulse Oximetry (%) 98 Oxygen Delivery Method room air Intake Visit Reasons: 3 M FU Chief Complaint: bs concerns Installation And Repair Technician Required: No Accompanied by: Self Is patient in pain?: No Allergies adhesive Allergy (Verified 10/29/24 14:47) Rash dicyclomine HCl (From Bentyl) Allergy (Verified 10/29/24 14:47) Hives fentanyl Allergy (Verified 10/29/24 14:47) Hives Latex, Natural Rubber Allergy (Verified 10/29/24 14:47) Rash methadone Allergy (Verified 10/29/24 14:47) Other prednisone Allergy (Verified 10/29/24 14:47) Rash tramadol HCl (From Ultram) Allergy (Verified 10/29/24 14:47) Hives aspirin Adverse Reaction (Verified 10/29/24 14:47) Other ketorolac tromethamine (From Toradol) Adverse Reaction (Verified 10/29/24 14:47) Upset Stomach Medications ???Medication ???Instructions ???Recorded ???Confirmed ???Type flash glucose scanning reader #1 ea 02/28/24 10/29/24 Rx (FreeStyle Roxi 2 [place]) flash glucose sensor (FreeStyle #3 ea 07/30/24 10/29/24 Rx Roxi 2 Sensor kit) pen needle, diabetic 31 gauge x #100 ea 08/23/24 10/29/24 Rx 5/16 (Pen Needle) blood-glucose meter,continuous #1 ea 09/11/24 10/29/24 Rx (FreeStyle Roxi 3 [place]) blood-glucose sensor (FreeStyle #1 ea 09/19/24 10/29/24 Rx Roxi 3 Sensor device) blood pressure monitor #1 ea 10/29/24 10/29/24 Rx dulaglutide 3 mg/0.5 mL 3 mg (0.5 mL) subcut QWEEK #6 mL 10/29/24 10/29/24 Rx subcutaneous pen injector insulin glargine 100 unit/mL (3 42 unit (0.42 mL) subcut BID #76 mL 10/29/24 10/29/24 Rx mL) subcutaneous pen (Lantus Solostar U-100 Insulin) insulin lispro 100 unit/mL 22 unit (0.22 mL) subcut TID #60 mL 10/29/24 10/29/24 Rx subcutaneous pen lisinopril 10 mg tablet 10 mg PO DAILY #90 tabs 10/29/24 10/29/24 Rx PFSH Medical History Vision problems History of ulcer disease Hearing problem History of blood transfusion Back problem Acute arthritis Seasonal allergies Substance abuse Anxiety Depression Smoker Migraines Diabetes TTP (thrombotic thrombocytopenic purpura) Surgical History H/O eye surgery Family History Mother Diabetes Heart disease Cancer unknown Asthma Anxiety Arthritis Social History household members: significant other, children and other details: [place] housing: house current occupational status: unemployed Smoking Status: Heavy Smoker (>10/day) Tobacco: How many years used: 30 Electronic Cigarette Use: not used quit status: considering quitting alcohol intake: never substance use type: marijuana what type of physical activity do you participate in: walking seatbelt use: always do you feel safe at home: Yes HPI HPI Chief Complaint: bs concerns Details: JAIRO ADKINS, is a 44 M who presents to the office today for a follow up. He is due for some routine blood work and isn't due for any screening. He previously declined his flu shot. He does smoke. He is still at 1/2ppd. He still isn't ready to quit. He does need refills today. He reports he is eating healthy and staying active. He does check his sugars at home. He reports they have been running between 300 and high. He reports he did have a low reading but doesn't recall what it was. He doesn't have his log for review today. He states he likes his new sensor. He states he is watching his diet in terms of carbohydrates and sugars. He is taking his medication as prescribed. He is up to date on his diabetic eye exam and doesn't see podiatry. He never made the appointment with endocrinology as previously referred. He states his blurred vision and urinary frequency has been doing better. He doesn't check his blood pressure at home, but states he would check it if he got a cuff. He is taking that as prescribed without problems. He does monitor his salt intake. The patient was diagnosed with TTP in 2004. He follows with hematology every 3 months on average. He reports it is mostly just being monitored at this time. He has a follow up with them in January. He has no other questions or conc (more content not included)... Normal [facility] [id number] ACTIVITYon 09-26-20 24 [id number] Activity >100 Normal >=40 [facility] Comment on above: Result Comment: FRAN TS13 activity is measured by chromogenic ELLIE (enzyme-linked immunosorbent assay). Severe deficiencies of HFOVCV57 (activity <10%) appear to be a relatively specific finding in thrombotic microangiopathy patients with a clinical diagnosis of immune thrombotic thrombocytopenic purpura (TTP) or the congenital form of TTP (Vernon-Arnulfo Syndrome). However, mild to moderate deficiencies have also been observed in other clinical conditions, such as atypical hemolytic uremic syndrome (aHUS), sepsis, disseminated intravascular coagulation, and metastatic malignancy. Some literature also suggests serial measurement of LBAPAC78 activity levels may assist clinicians in monitoring TTP patients and provide prognostic value in prediction of TTP relapses. When interpreting the serological results, the history of the sample has to be taken into account. This test was developed and its performance characteristics determined by [facility] at [facility]. It has not been cleared or approved by the FDA. The laboratory is regulated under CLIA as qualified to perform high-complexity testing. This test is used for clinical purposes. It should not be regarded as investigational or for research. Performed By: #### 1 Luz MariaGG, 13ACT #### [facility] (DEFAULT) [address] [place] [address] [id number] Inhibitor Not Indicated Normal [facility] Comment on above: Performed By: #### 1 3IGG, 13ACT #### [facility] (DEFAULT) [address] [place] [address] [id number] IGG ABon 09-26-2024 [id number] IgG Antibody <6.0 Normal <=12.0 [facility] Comment on above: Result Comment: Anti -VGCZEQ03 IgG antibodies concentration is determined by ELLIE (enzyme-linked immunosorbent assay). This test was developed and its performance characteristics determined by the [facility] at [facility]. It has not been cleared or approved by the FDA. The laboratory is regulated under CLIA as qualified to perform high-complexity testing. This test is used for clinical purposes. It should not be regarded as investigational or for research. Results of this test should be considered in context of other established medical tests and diagnostic information with appropriate clinical correlation. Samples with high concentrations of autoantibodies other than anti-OFFWHV25 may result in weak positive or borderline results. Elevated bilirubin levels may cause a negative interference with anti-CFOXAG26 IgG antibodies test results. Performed By: #### 1 3IGG, 13ACT #### [facility] (DEFAULT) [address] [place] [address] CBC AND ELECTRONIC DIFFon Basophils (Bld) [#/Vol] 0.06 10*3/uL 0.00 - 0.09 K/uL [facility] Basophils/100 WBC (Bld) 0.7 % O [facility] Differential cell count method Nom (Bld) Electronic Differential [facility] Eosinophils (Bld) [#/Vol] 0.55 10*3/uL High 0.00 - 0.48 K/uL [facility] Eosinophils/100 WBC (Bld) 6.7 % [facility] Erythrocyte distribution width (RBC) [Ratio] 13.4 % 10.9 - 14.3 % [facility] Hematocrit (Bld) [Volume fraction] 46.5 % 39.6 - 48.8 % [facility] Hemoglobin (Bld) [Mass/Vol] 15.8 g/dL 13.4 - 16.8 g/dL [facility] Immature granulocytes (Bld) [#/Vol] 0.07 10*3/uL NINF - 0.07 K/uL [facility] Immature granulocytes/100 WBC (Bld) 0.8 % [facility] Interpretation and review of laboratory results Abnormal [facility] Lymphocytes (Bld) [#/Vol] 2.20 10*3/uL 0.83 - 3.57 K/uL [facility] Lymphocytes/100 WBC (Bld) 26.6 % [facility] MCH (RBC) [Entitic mass] 30.2 pg 26.1 - 33.3 pg [facility] MCHC (RBC) [Mass/Vol] 34.0 g/dL 31.9 - 36.5 g/dL [facility] MCV (RBC) [Entitic vol] 88.9 fL 79.0 - 94.5 fL [facility] Monocytes (Bld) [#/Vol] 0.78 10*3/uL 0.24 - 0.93 K/uL [facility] Monocytes/100 WBC (Bld) 9.4 % O [facility] Neutrophils (Bld) [#/Vol] 4.61 10*3/uL 1.57 - 6.19 K/uL [facility] Nucleated RBC/100 WBC (Bld) [Ratio] 0.0 % NINF [facility] Platelet mean volume (Bld) [Entitic vol] 10.0 fL 8.7 - 12.3 fL [facility] Platelets (Bld) [#/Vol] 240 10*3/uL 146 - 337 K/uL [facility] RBC (Bld) [#/Vol] 5.23 10*6/uL [facility] Segmented neutrophils/100 WBC (Bld) 55.8 % [facility] WBC (Bld) [#/Vol] 8.27 10*3/uL 3.73 - 10.10 K/uL [facility] Basophils (Bld) [#/Vol] 0.06 10*3/uL Normal 0.00-0.09 [facility] Comment on above: Performed By: #### A 1CB, [id number] #### [facility] (DEFAULT) [address] [place] [address] Basophils/100 WBC (Bld) 0.7 % Normal O [facility] Comment on above: Performed By: #### A 1CB, [id number] #### [facility] (DEFAULT) [address] [place] [address] DIFF STATUS Electronic Differential Normal [facility] Comment on above: Performed By: #### A 1CB, [id number] #### [facility] (DEFAULT) [address] [place] [address] Eosinophils (Bld) [#/Vol] 0.55 10*3/uL High 0.00-0.48 [facility] Comment on above: Performed By: #### A 1CB, [id number] #### [facility] (DEFAULT) [address] [place] [address] Eosinophils/100 WBC (Bld) 6.7 % Normal [facility] Comment on above: Performed By: #### Carlos MCGHEE, [id number] #### [facility] (DEFAULT) [address] [address] Hematocrit (Bld) [Volume fraction] 46.5 % Normal 39.6-48.8 [facility] Comment on above: Performed By: #### Carlos MCGHEE, [id number] #### [facility] (DEFAULT) [address] [address] Hemoglobin (Bld) [Mass/Vol] 15.8 g/dL Normal 13.4-16.8 [facility] Comment on above: Performed By: #### Carlos MCGHEE, [id number] #### [facility] (DEFAULT) [address] [address] Immature Grans % 0.8 % Normal [facility] Comment on above: Performed By: #### Carlos MCGHEE, [id number] #### [facility] (DEFAULT) [address] [address] Immature Grans Absolute 0.07 K/uL Normal <=0.07 O [facility] Comment on above: Performed By: #### Carlos MCGHEE, [id number] #### [facility] (DEFAULT) [address] [address] Lymphocytes (Bld) [#/Vol] 2.20 10*3/uL Normal 0.83-3.57 [facility] Comment on above: Performed By: #### Carlos MCGHEE, [id number] #### [facility] (DEFAULT) [address] [address] Lymphocytes/100 WBC (Bld) 26.6 % Normal [facility] Comment on above: Performed By: #### Carlos MCGHEE, [id number] #### [facility] (DEFAULT) [address] [address] MCV (RBC) [Entitic vol] 88.9 fL Normal 79.0-94.5 [facility] Comment on above: Performed By: #### Carlos 1CB, [id number] #### [facility] (DEFAULT) [address] [place] [address] Mean Cell Hgb 30.2 pg Normal 26.1-33.3 [facility] Comment on above: Performed By: #### Carlos 1CB, [id number] #### [facility] (DEFAULT) [address] [place] [address] Mean Cell Hgb Conc 34.0 g/dL Normal 31.9-36.5 [facility] Comment on above: Performed By: #### Carlos 1CB, [id number] #### [facility] (DEFAULT) [address] [address] Monocytes (Bld) [#/Vol] 0.78 10*3/uL Normal 0.24-0.93 [facility] Comment on above: Performed By: #### Carlos MCGHEE, [id number] #### [facility] (DEFAULT) [address] [address] Monocytes/100 WBC (Bld) 9.4 % Normal O [facility] Comment on above: Performed By: #### Carlos 1CRafael, [id number] #### [facility] (DEFAULT) [address] [address] Nucleated RBC 0.0 /100 WBC Normal <=0.2 [facility] Comment on above: Performed By: #### Carlos 1CB, [id number] #### [facility] (DEFAULT) [address] [place] [address] Platelet mean volume (Bld) [Entitic vol] 10.0 fL Normal 8.7-12.3 [facility] Comment on above: Performed By: #### Carlos 1CB, [id number] #### [facility] (DEFAULT) [address] [address] Platelets (Bld) [#/Vol] 240 10*3/uL Normal 146-337 [facility] Comment on above: Performed By: #### Carlos 1CB, [id number] #### [facility] (DEFAULT) [address] [place] [address] RBC (Bld) [#/Vol] 5.23 10*6/uL Normal 4.38-5.83 [facility] Comment on above: Performed By: #### Carlos 1CB, [id number] #### [facility] (DEFAULT) [address] [place] [address] RBC Distribution 13.4 % Normal 10.9-14.3 [facility] Comment on above: Performed By: #### A 1CB, [id number] #### [facility] (DEFAULT) [address] [place] [address] Segs + Bands Auto 55.8 % Normal [facility] Comment on above: Performed By: #### Carlos 1CB, [id number] #### [facility] (DEFAULT) [address] [place] [address] Segs + Bands,Absolute Auto 4.61 K/uL Normal 1.57-6.19 [facility] Comment on above: Performed By: #### Carlos 1CB, [id number] #### [facility] (DEFAULT) [address] [place] [address] WBC (Bld) [#/Vol] 8.27 10*3/uL Normal 3.73-10.10 [facility] Comment on above: Performed By: #### Carlos 1CB, [id number] #### [facility] (DEFAULT) [address] [place] [address] COMPREHENSIVE METABOLIC PANE Adán 09-26-2024 Albumin [Mass/Vol] 4.1 g/dL 3.5 - 5.0 g/dL [facility] ALP [Catalytic activity/Vol] 150 U/L High 32 - 126 U/L [facility] ALT [Catalytic activity/Vol] 50 U/L 10 - 52 U/L [facility] Anion gap [Moles/Vol] 12 mmol/L 7 - 17 mmol/L [facility] AST [Catalytic activity/Vol] 25 U/L 10 - 39 U/L [facility] Bilirubin [Mass/Vol] 0.4 mg/dL NINF - 1.5 mg/dL [facility] Calcium [Mass/Vol] 9.4 mg/dL 8.6 - 10. 5 mg/dL [facility] Chloride [Moles/Vol] 99 mmol/L 98 - 10 8 mmol/L [facility] CO2 [Moles/Vol] 24 mmol/L 21 - 31 mmol/L [facility] Creatinine [Mass/Vol] 0.69 mg/dL Low 0.70 - 1.30 mg/dL [facility] eGFR, CKD-EPI, Male - PINF [facility] Comment on above: Reported eGFR is bas ed on the CKD-EPI 2020 equation using creatinine, age, and sex. Glucose [Mass/Vol] 376 mg/dL High 70 - 99 mg/dL [facility] Interpretation and review of laboratory results Abnormal [facility] Osmolality Calc [Osmolality] 293 [facility] Potassium [Moles/Vol] 4.1 mmol/L 3.5 - 5.0 mmol/L [facility] Protein [Mass/Vol] 7.3 g/dL 6.4 - 8.3 g/dL [facility] Sodium [Moles/Vol] 131 mmol/L Low 135 - 145 mmol/L [facility] Urea nitrogen [Mass/Vol] 11 mg/dL 7 - 25 mg/dL [facility] Urea nitrogen/Creatinine [Mass ratio] 16 mg/mg [facility] Albumin [Mass/Vol] 4.1 g/dL Normal 3.5-5.0 [facility] Comment on above: Performed By: #### L CATHERINE EWING #### [facility] (DEFAULT) [address] [place] [address] ALP [Catalytic activity/Vol] 150 U/L High 32-126 [facility] Comment on above: Performed By: #### L CHETAN EWINGN #### [facility] (DEFAULT) [address] [address] [place] [address] [id number] ALT [Catalytic activity/Vol] 50 U/L Normal 10-52 [facility] Comment on above: Performed By: #### L DO CMPN #### [facility] (DEFAULT) [address] [place] [address] 53772 Anion gap [Moles/Vol] 12 mmol/L Normal 7-17 [facility] Comment on above: Performed By: #### L DO, CMPN #### [facility] (DEFAULT) [address] [place] [address] 70771 AST [Catalytic activity/Vol] 25 U/L Normal 10-39 [facility] Comment on above: Performed By: #### L DO, CMPN #### [facility] (DEFAULT) [address] [place] [address] 71697 Bilirubin [Mass/Vol] 0.4 mg/dL Normal <1.5 [facility] Comment on above: Performed By: #### L DO, CMPN #### [facility] (DEFAULT) [address] [place] [address] 10245 Calcium [Mass/Vol] 9.4 mg/dL Normal 8.6-10.5 [facility] Comment on above: Performed By: #### L DO, CMPN #### [facility] (DEFAULT) [address] [place] [address] 23724 Chloride [Moles/Vol] 99 mmol/L Normal 98-108 [facility] Comment on above: Performed By: #### L DO, CMPN #### [facility] (DEFAULT) [address] [place] [address] 53626 CO2 [Moles/Vol] 24 mmol/L Normal 21-31 [facility] Comment on above: Performed By: #### L DO, CMPN #### [facility] (DEFAULT) [address] [place] [address] 83829 Creatinine [Mass/Vol] 0.69 mg/dL Low 0.70-1.30 [facility] Comment on above: Performed By: #### L DO, CMPN #### [facility] (DEFAULT) [address] [place] [address] 53201 eGFR, CKD-EPI, Male > Normal >=60 [facility] Comment on above: Result Comment: Repo rted eGFR is based on the CKD-EPI 2020 equation using creatinine, age, and sex. Performed By: #### L DO, CMPN #### [facility] (DEFAULT) [address] [place] [address] 46840 Glucose [Mass/Vol] 376 mg/dL High 70-99 [facility] Comment on above: Performed By: #### L DO, CMPN #### [facility] (DEFAULT) [address] [place] [address] 47894 Osmolality [Osmolality] 293 mosm/kg Normal 278-305 [facility] Comment on above: Performed By: #### L DO, CMPN #### [facility] (DEFAULT) [address] [place] [address] 91911 Potassium [Moles/Vol] 4.1 mmol/L Normal 3.5-5.0 [facility] Comment on above: Performed By: #### L DO, CMPN #### [facility] (DEFAULT) [address] [place] [address] 44878 Protein [Mass/Vol] 7.3 g/dL Normal 6.4-8.3 [facility] Comment on above: Performed By: #### L DO, CMPN #### [facility] (DEFAULT) [address] [place] [address] 72870 Sodium [Moles/Vol] 131 mmol/L Low 135-145 [facility] Comment on above: Performed By: #### L DO, CMPN #### [facility] (DEFAULT) [address] [place] [address] 85825 Urea nitrogen [Mass/Vol] 11 mg/dL Normal 7-25 [facility] Comment on above: Performed By: #### L DO, CMPN #### [facility] (DEFAULT) [address] [place] [address] 52257 Urea nitrogen/Creatinine [Mass ratio] 16 mg/mg Normal [facility] Comment on above: Performed By: #### L DO, CMPN #### [facility] (DEFAULT) [address] [place] [address] 50969 HEMOGLOBIN A1Con 09-26-2024 Average glucose Estimated from glycated hemoglobin (Bld) [Mass/Vol] 255 mg/dL [facility] HbA1c (Bld) [Mass fraction] 10.5 % High 4.7 - 5.6 % [facility] Interpretation and review of laboratory results Abnormal [facility] Glucose [Mass/Vol] 255 mg/dL Normal [facility] Comment on above: Performed By: #### A 1CB, [id number] #### [facility] (DEFAULT) [address] [place] [address] 37971 Hemoglobin A1C HPLC 10.5 % High 4.7-5.6 [facility] Comment on above: Performed By: #### A 1CB, [id number] #### [facility] (DEFAULT) [address] [place] [address] 24147 LACTATE DEHYDROGENASEon 09-15 Interpretation and review of laboratory results Normal [facility] LDH Lactate to pyruvate reaction [Catalytic activity/Vol] 148 U/L 100 - 190 U/L [facility] Comment on above: Specimen slightly he molyzed. LDH results may be falsely elevated. Interpret within the clinical context. LD Total 148 U/L Normal 100-190 [facility] Comment on above: Result Comment: Spec imen slightly hemolyzed. LDH results may be falsely elevated. Interpret within the clinical context. Performed By: #### L DO, CMPN #### [facility] (DEFAULT) [address] [place] [address] 47678 No Panel Informationon 09-26 [facility] URINE PROTEIN/CREA RATIO, RA NDOMon 09-26-2024 Creatinine (24H U) [Mass/Vol] 66.63 mg/dL [facility] Protein Unsp time (U) [Mass/Vol] 9 mg/dL [facility] Protein/Creatinine (U) [Mass ratio] 0.135 mg/mg [facility] Creatinine (U) [Mass/Vol] 66.63 mg/dL Normal [facility] Comment on above: Performed By: #### U PCR #### [facility] (DEFAULT) [address] [place] [address] Prot/Creat Ratio 0.135 mg/mg Normal [facility] Comment on above: Performed By: #### U PCR #### [facility] (DEFAULT) [address] [address] Protein Ql (U) 9 mg/dL Normal [facility] Comment on above: Performed By: #### U PCR #### [facility] (DEFAULT) [address] [place] [address] Emergency Department Summary on 09-04-2024 Emergency Department Summary [facility] Medical Records Department [address] [place] [address] Emergency Department Summary 09/04/24 MR#: [id number] Acct: [id number] Name: JAIRO ADKINS JrLuis Armando Rep #: [id number] : 1980 44 From: Eliecer Cortez DO PCP: Dr. Katia Belle MD Status:DEP ER Location: ED HPI HPI - URI History of Present Illness Chief Complaint: Ear Problem Informant: patient Onset/Context/Timing Onset: Weeks (1.5) Context: Gradual Onset Timing: Continuous Quality: Aching Location: Left ear Worsened by: - (Chewing, eating) Relieved by: - (Nothing) Associated Symptoms Associated Symptoms: Positive for Headache; Negative for Nasal Congestion, Sinus Pressure, Myalgias, Nausea, Vomiting, Diarrhea, Shortness of Breath, Chest Pain, Nonproductive cough, Hemoptysis or Productive Cough Narrative Narrative: Patient presents with pain in his left ear that has been getting worse over the past 1-1/2 weeks. Patient states it is gradually getting worse. Patient states it is worse with any chewing or eating. Patient describes his pain as aching. Patient states it is localized to the left ear. Patient denies any discharge or drainage. Patient admits to a headache. Patient denies any nausea or vomiting. Patient denies any fevers or chills. Patient denies any chest pain or shortness of breath. Patient denies any cough. ROS ROS ED Constitutional Constitutional ED: Denies chills or fever(s) Eyes Eyes: Denies blurry vision or change in vision ENT ENT ED: Reports ear pain left; Denies rhinorrhea or sore throat Cardiovascular Cardiovascular: Denies chest pain or palpitations Respiratory/Chest Respiratory/Chest: Denies cough or dyspnea Gastrointestinal Gastrointestinal: Denies nausea or vomiting Genitourinary Genitourinary ED: Denies dysuria or hematuria Musculoskeletal Musculoskeletal: Reports neck pain; Denies back pain Integumentary Denies abscess or rash Neurologic Neurologic: Reports headache(s); Denies weakness Allergic/Immunologic Allergic/Immunologic ED: Denies mouth swelling or urticaria PFSH PFSH Medical History Vision problems History of ulcer disease Hearing problem History of blood transfusion Back problem Acute arthritis Seasonal allergies Substance abuse Anxiety Depression Smoker Migraines Diabetes TTP (thrombotic thrombocytopenic purpura) Home Medications ???Medication ???Instructions ???Recorded ???Last Taken ???Type flash glucose scanning reader #1 ea 02/28/24 Unknown Rx (FreeStyle Roxi 2 [place]) hydrocodone-acetaminoph en 5-325mg 1 tab PO Q6H PRN PRN Pain 3 days 04/10/24 Unknown Rx 5mg-325mg #10 TABLETS flash glucose sensor (FreeStyle #3 ea 07/30/24 Unknown Rx Roxi 2 Sensor kit) insulin glargine 100 unit/mL (3 40 unit (0.4 mL) subcut BID #24 mL 07/30/24 Unknown Rx mL) subcutaneous pen (Lantus Solostar U-100 Insulin) insulin lispro 100 unit/mL 20 unit (0.2 mL) subcut TID #18 mL 07/30/24 Unknown Rx subcutaneous pen lisinopril 10 mg tablet 10 mg PO DAILY #90 tabs 07/30/24 Unknown Rx dulaglutide 0.75 mg/0.5 mL 1.5 mg subcut QWEEK #6 mL 08/13/24 Unknown Rx subcutaneous pen injector (Trulicity) pen needle, diabetic 31 gauge x #100 ea 08/23/24 Unknown Rx 02/28 (Pen Needle) cephalexin 500 mg capsule 500 mg PO Q6 #40 CAPSULES 09/04/24 Unknown Rx Allergy/AdvReac Type Severity Reaction Status Date / Time adhesive Allergy Rash Verified 09/04/24 17:42 dicyclomine HCl (From Bentyl) Allergy Hives Verified 09/04/24 17:42 fentanyl Allergy Hives Verified 09/04/24 17:42 Latex, Natural Rubber Allergy Rash Verified 09/04/24 17:42 methadone Allergy Other Verified 09/04/24 17:42 prednisone Allergy Rash Verified 09/04/24 17:42 tramadol HCl (From Ultram) Allergy Hives Verified 09/04/24 17:42 aspirin AdvReac Other Verified 09/04/24 17:42 ketorolac tromethamine (From AdvReac Upset Verified 09/04/24 17:42 Toradol) Stomach Family History Mother Diabetes Heart disease Cancer unknown Asthma Anxiety Arthritis Surgical History H/O eye surgery Social History household members: significant other, children and other details: [facility] housing: house current occupational status: unemployed Smoking Status: Heavy Smoker (>10/day) Tobacco: How many years used: 30 Electronic Cigarette Use: not used quit status: considering quitting alcohol intake: never substance use type: marijuana what type of physical activity do you participate in: walking seatbelt use: always do you feel safe at home: Yes EXAM Physical Exam Const Vital Signs: (more content not included)... Normal [facility] Comprehensive Metabolic Prof rylieon 07-30-2024 Albumin [Mass/Vol] 3.8 g/dL Normal 3.2-5.0 [facility] Comment on above: Performed By: #### L 500.3400, L501.2450, L501.7300, L100.0100, L501.6900 #### [facility] [address] [place], [address] Albumin/Globulin [Mass ratio] 0.8 {ratio} Low 0.9-2.4 [facility] Comment on above: Performed By: #### L 500.3400, L501.2450, L501.7300, L100.0100, L501.6900 #### [facility] [address] [place], [address] ALK P 200 U/L High 45-117 [facility] Comment on above: Performed By: #### L 500.3400, L501.2450, L501.7300, L100.0100, L501.6900 #### [facility] [address] [place], [address] ALT [Catalytic activity/Vol] 60 U/L Normal 16-61 [facility] Comment on above: Performed By: #### L 500.3400, L501.2450, L501.7300, L100.0100, L501.6900 #### [facility] [address] [place], [address] AST [Catalytic activity/Vol] 23 U/L Normal 15-37 [facility] Comment on above: Result Comment: Slig ht Hemolysis, Result may be falsely increased. Performed By: #### L 500.3400, L501.2450, L501.7300, L100.0100, L501.6900 #### [facility] [address] [place], [address] Bilirubin [Mass/Vol] 0.50 mg/dL Normal 0.20-1.00 [facility] Comment on above: Result Comment: For patients on eltrombopag therapy, use of Dimension [place] TBIL is not recommended. Performed By: #### L 500.3400, L501.2450, L501.7300, L100.0100, L501.6900 #### [facility] [address] [place], [address] BUN/CRE 15.8 RATIO Normal 10-20 [facility] Comment on above: Performed By: #### L 500.3400, L501.2450, L501.7300, L100.0100, L501.6900 #### [facility] [address] [place], [address] CA,Total 9.6 mg/dL Normal 8.5-10.1 [facility] Comment on above: Performed By: #### L 500.3400, L501.2450, L501.7300, L100.0100, L501.6900 #### [facility] [address] [place], [address] Chloride [Moles/Vol] 97 mmol/L Low 98-107 [facility] Comment on above: Performed By: #### L 500.3400, L501.2450, L501.7300, L100.0100, L501.6900 #### [facility] [address] [place], [address] CO2 [Moles/Vol] 25.0 mmol/L Normal 21.0-32.0 [facility] Comment on above: Performed By: #### L 500.3400, L501.2450, L501.7300, L100.0100, L501.6900 #### [facility] [address] [place], [address] Creatinine [Mass/Vol] 0.95 mg/dL Normal 0.70-1.30 [facility] Comment on above: Result Comment: The validity of the calculated GFR GFRAA in patients over 70 years has not been determined. Clinical correlation is essential. Performed By: #### L 500.3400, L501.2450, L501.7300, L100.0100, L501.6900 #### [facility] [address] [place], [address] EST GFR - AA 111 mL/min Normal >60 [facility] Comment on above: Result Comment: Afri can Green[place]ic GFR Calc Performed By: #### L 500.3400, L501.2450, L501.7300, L100.0100, L501.6900 #### [facility] [address] [place], [address] GAP 8 Normal 5-15 [facility] Comment on above: Performed By: #### L 500.3400, L501.2450, L501.7300, L100.0100, L501.6900 #### [facility] [address] [place], [address] GFR/1.73 sq M.predicted among non-blacks MDRD (S/P/Bld) [Vol rate/Area] 92 mL/min/{1.73_m2} Normal >60 [facility] Comment on above: Result Comment: Non- GFR Calc Performed By: #### L 500.3400, L501.2450, L501.7300, L100.0100, L501.6900 #### [facility] [address] [place], [address] Globulin (S) [Mass/Vol] 4.5 g/dL High 2.2-4.2 [facility] Comment on above: Performed By: #### L 500.3400, L501.2450, L501.7300, L100.0100, L501.6900 #### [facility] [address] [place], [address] Glucose [Mass/Vol] 579 mg/dL Invalid Interpretation Code 74-106 [facility] Comment on above: Result Comment: Crit ical Result(s) Called at: 12:59:22 07/30/2024 by: Fidelia Luna to Marie Guerin. Results read back by same. Glucose result greater than or equal to 200 mg/dL suggests DIABETES MELLITUS per A.D.A. criteria. Performed By: #### L 500.3400, L501.2450, L501.7300, L100.0100, L501.6900 #### [facility] [address] [place], [address] Potassium [Moles/Vol] 4.6 mmol/L Normal 3.5-5.1 [facility] Comment on above: Result Comment: Slig ht Hemolysis, Result may be falsely increased. Performed By: #### L 500.3400, L501.2450, L501.7300, L100.0100, L501.6900 #### [facility] [address] [place], [address] Sodium [Moles/Vol] 130 mmol/L Low 136-145 [facility] Comment on above: Performed By: #### L 500.3400, L501.2450, L501.7300, L100.0100, L501.6900 #### [facility] [address] [place], [address] T PROT 8.3 g/dL High 6.4-8.2 [facility] Comment on above: Performed By: #### L 500.3400, L501.2450, L501.7300, L100.0100, L501.6900 #### [facility] [address] [place], [address] Urea nitrogen [Mass/Vol] 15 mg/dL Normal 7-18 [facility] Comment on above: Performed By: #### L 500.3400, L501.2450, L501.7300, L100.0100, L501.6900 #### [facility] [address] [place], [address] Internal Medicine Office Vis gus 07-29-2024 Internal Medicine Office Visit [facility] [place] [address] [place] [address] OFFICE VISIT Date of Service: 07/30/24 MR#: [id number] Acct: [id number] Name: JAIRO ADKINS Jr. Rep #: [id number] : 1980 Provider: Dr. Katia smith MD Age/Sex: 44/M [place] [facility] [place] Status: Signed Intake Vital Signs 05/21/24 18:01 07/30/24 08:01 Height 5 ft 9 in 5 ft 9 in Weight: 270 lb 8 oz BMI 39.9 BP 130/76 H Blood Pressure Location Lt brachial Position Sitting Respiration 16 Pulse 90 Pulse Source Monitor Temp 97.1 F L Temp Source Temporal Pulse Oximetry (%) 96 Oxygen Delivery Method room air Intake Visit Reasons: blood sugars out of whack Chief Complaint: bs concerns Installation And Repair Technician Required: No Accompanied by: Self Is patient in pain?: No Allergies adhesive Allergy (Verified 07/30/24 07:58) Rash dicyclomine HCl (From Bentyl) Allergy (Verified 07/30/24 07:58) Hives fentanyl Allergy (Verified 07/30/24 07:58) Hives Latex, Natural Rubber Allergy (Verified 07/30/24 07:58) Rash methadone Allergy (Verified 07/30/24 07:58) Other prednisone Allergy (Verified 07/30/24 07:58) Rash tramadol HCl (From Ultram) Allergy (Verified 07/30/24 07:58) Hives aspirin Adverse Reaction (Verified 07/30/24 07:58) Other ketorolac tromethamine (From Toradol) Adverse Reaction (Verified 07/30/24 07:58) Upset Stomach Medications ???Medication ???Instructions ???Recorded ???Confirmed ???Type flash glucose scanning reader #1 ea 02/28/24 07/30/24 Rx (FreeStyle Roxi 2 [place]) pen needle, diabetic 29 gauge x #100 ea 03/26/24 07/30/24 Rx 1/2 hydrocodone-acetaminoph en 5-325mg 1 tab PO Q6H PRN PRN Pain 3 days 04/10/24 07/30/24 Rx 5mg-325mg #10 TABLETS dulaglutide 0.75 mg/0.5 mL 0.75 mg (0.5 mL) subcut QWEEK #6 mL 07/30/24 07/30/24 Rx subcutaneous pen injector (Trulicity) flash glucose sensor (FreeStyle #3 ea 07/30/24 07/30/24 Rx Roxi 2 Sensor kit) insulin glargine 100 unit/mL (3 40 unit (0.4 mL) subcut BID #24 mL 07/30/24 07/30/24 Rx mL) subcutaneous pen (Lantus Solostar U-100 Insulin) insulin lispro 100 unit/mL 20 unit (0.2 mL) subcut TID #18 mL 07/30/24 07/30/24 Rx subcutaneous pen lisinopril 10 mg tablet 10 mg PO DAILY #90 tabs 07/30/24 07/30/24 Rx PFSH Medical History Vision problems History of ulcer disease Hearing problem History of blood transfusion Back problem Acute arthritis Seasonal allergies Substance abuse Anxiety Depression Smoker Migraines Diabetes TTP (thrombotic thrombocytopenic purpura) Surgical History H/O eye surgery Family History Mother Diabetes Heart disease Cancer unknown Asthma Anxiety Arthritis Social History household members: significant other, children and other details: [facility] housing: house current occupational status: unemployed Smoking Status: Heavy Smoker (>10/day) Tobacco: How many years used: 30 Electronic Cigarette Use: not used quit status: considering quitting alcohol intake: never substance use type: marijuana what type of physical activity do you participate in: walking seatbelt use: always do you feel safe at home: Yes HPI HPI Chief Complaint: bs concerns Details: JAIRO ADKINS, is a 44 M who presents to the office today for a follow up. He never did his follow up blood work as previously ordered and isn't due for any screening. He doesn't want his flu shot. He does smoke. He reports he is currently at 1/2ppd down from 1ppd. He states he isn't ready to quit entirely yet, however. He does need refills today. He reports he is eating healthy and staying active. The patient reports he was in [facility] [place] 2 weeks in June. He reports he was not given his short and long acting insulin during his stay reporting they told him he didn't need it. He reports he has been out of his insulin since being home. He states nobody called him for a refill, so he just didn't take it. He does check his sugars at home. He reports prior to going to half-way, they were in the 120-200 range. He reports now, his sensor is just reading high again including this morning. He does try to monitor his carbohydrate and sugar intake. He is up to date on his diabetic eye exam and doesn't see podiatry. At his last office visit, he was referred to endocrinology, but he never made the appointment. He reports that he left a message, but nobody got back to him. He reports his vision did improve after he was last seen, but is starting to get blurry again over the last week. He continues to have problems with urinary frequency. He doesn't check his blood pressure at home. (more content not included)... Normal [facility] Chest 1 View (Portable)on Chest 1 View (Portable) [facility] Services [address] [place] [address] Chest 1 View (Portable) MR#: [id number] Acct: [id number] Name: JAIRO ADKNIS . Rep #: [id number] : 1980 M 44 From: Gage Estrada PCP: Care Physician,No Primary Status: REG ER Study: Chest 1 View (Portable) Date of Exam: 05/21/24 Exam# [id number] Ordering [place]: [place] [id number] STUDY: X-RAY CHEST REASON FOR EXAM: Male, 44 years old. right shoulder pain TECHNIQUE: Single frontal view of the chest. COMPARISON: March 02, 2024 FINDINGS: The lungs are clear and expanded. There is no demonstrated pleural abnormality. Normal size heart. Normal mediastinum and yousif. Normal visualized pulmonary arteries. Normal visualized aortic arch and descending thoracic aorta. Normal visualized thoracic spine. Normal visualized ribs, clavicles, and shoulders. There is no demonstrated abnormality of the visualized soft tissue structures of the upper abdomen. RAD/Chest 1 View (Portable) IMPRESSION: Normal x-ray examination of the chest. Electronically Signed: Gage Velez MD at 18:44 EDT , CC: Dr. El Churchill DO; No Primary Care Physician Manager Compensation: Signed Normal [facility] Emergency Department Summary on 05-21-2024 Emergency Department Summary [facility] Records Department [address] [place] [address] Emergency Department Summary 05/21/24 MR#: [id number] Acct: [id number] Name: JAIRO ADKINS Jr. Rep #: [id number] : 1980 44 From: El Churchill DO PCP: Care Physician,No Primary Status:REG ER Location: ED HPI History of Present Illness HPI Narrative: Patient is a 44-year-old male past medical history of TTP, diabetes, depression, anxiety, substance abuse who presented to the emerged part with a chief complaint of right shoulder pain. He states that the end of the previous month he went down to [place] had a procedure done on his right shoulder where they broke up calcium deposits. He states that starting today he had significant amount of pain in his right shoulder he states that he has tried multiple doses of Tylenol and ibuprofen without any symptomatic relief prompting him to come here for evaluation management. He states that he feels that calcium deposits may have reaccumulated causing him problems. He denies any new falls or trauma to the shoulder. Chief Complaint: Upper Extremity Injury [facility] Medical History Vision problems History of ulcer disease Hearing problem History of blood transfusion Back problem Acute arthritis Seasonal allergies Substance abuse Anxiety Depression Smoker Migraines Diabetes TTP (thrombotic thrombocytopenic purpura) Home Medications ???Medication ???Instructions ???Recorded ???Last Taken ???Type flash glucose scanning reader #1 ea 02/28/24 Unknown Rx (FreeStyle Roxi 2 [place]) flash glucose sensor (FreeStyle #3 ea 02/28/24 Unknown Rx Roxi 2 Sensor kit) lisinopril 10 mg tablet 10 mg PO DAILY #30 tabs 02/28/24 Unknown Rx insulin lispro 100 unit/mL 20 unit subcut TID 03/19/24 Unknown History subcutaneous pen sulfamethoxazole 800 1 tab PO BID #20 tabs 03/19/24 Unknown Rx mg-trimethoprim 160 mg tablet pen needle, diabetic 29 gauge x #100 ea 03/26/24 Unknown Rx 1/2 dulaglutide 0.75 mg/0.5 mL 0.75 mg (0.5 mL) subcut QWEEK #2 mL 04/08/24 Unknown Rx subcutaneous pen injector (Trulicity) hydrocodone-acetaminoph en 5-325mg 1 tab PO Q6H PRN PRN Pain 3 days 04/10/24 Unknown Rx 5mg-325mg #10 TABLETS sulfamethoxazole 800 1 tab PO BID #20 TABLETS 04/10/24 Unknown Rx mg-trimethoprim 160 mg tablet insulin glargine 100 unit/mL (3 40 unit (0.4 mL) subcut BID #24 mL 05/07/24 Unknown Rx mL) subcutaneous pen (Lantus Solostar U-100 Insulin) Allergy/AdvReac Type Severity Reaction Status Date / Time adhesive Allergy Rash Verified 05/21/24 18:01 dicyclomine HCl (From Bentyl) Allergy Hives Verified 05/21/24 18:01 fentanyl Allergy Hives Verified 05/21/24 18:01 Latex, Natural Rubber Allergy Rash Verified 05/21/24 18:01 methadone Allergy Other Verified 05/21/24 18:01 prednisone Allergy Rash Verified 05/21/24 18:01 tramadol HCl (From Ultram) Allergy Hives Verified 05/21/24 18:01 aspirin AdvReac Other Verified 05/21/24 18:01 ketorolac tromethamine (From AdvReac Upset Verified 05/21/24 18:01 Toradol) Stomach Family History Mother Diabetes Heart disease Cancer unknown Asthma Anxiety Arthritis Surgical History H/O eye surgery Social History household members: significant other, children and other details: eagle housing: house current occupational status: unemployed Smoking Status: Heavy Smoker (>10/day) Tobacco: How many years used: 30 Electronic Cigarette Use: not used quit status: considering quitting alcohol intake: never substance use type: marijuana what type of physical activity do you participate in: walking seatbelt use: always do you feel safe at home: Yes ROS ROS ED ROS Narrative Constitutional: Denies any fevers, chills, headaches, lightheadedness, dizziness Eyes: Denies any change in vision double vision blurry vision Cardiovascular: Denies chest pain or palpitations Respiratory: Denies coughing wheezing shortness of breath Abdomen: Denies abdominal pain nausea vomiting diarrhea : Denies any urinary symptoms Neurological: Denies numbness, weakness, tingling Musculoskeletal: Complains of right shoulder pain as noted above Skin: Denies rashes or lesions EXAM Physical Exam Narrative Exam Narrative: General: Patient lying in bed rest comfortably did not appear to be in acute distress Head: Atraumatic, normocephalic Eyes: PERRL bilaterally, EOMI bilaterally, no conjunctival injection noted Neck: Soft, supple, trachea midline Cardiovascular: Regular rate and rhythm no murmurs gallops rubs noted Respiratory: Clear to ausc (more content not included)... Normal [facility] Shoulder min 2 Viewson 05-21 Shoulder min 2 Views [facility] [address] [place], [place] [address] Shoulder min 2 Views MR#: [id number] Acct: [id number] Name: JAIRO ADKINS Jr. Rep #: [id number] : 1980 Vaishnavi Marx From: Gage Estrada PCP: Care Physician,No Primary Status: REG ER Study: Shoulder min 2 Views Date of Exam: 05/21/24 Exam# [id number] Ordering Dr: El Churchill [place] [id number] STUDY: X-RAY - RIGHT SHOULDER REASON FOR EXAM: Male, 44 years old. right shoulder pain TECHNIQUE: 2 view(s) of the shoulder. COMPARISON: Right shoulder November 10, 2023 FINDINGS: Normal glenohumeral articulation. Normal acromioclavicular joint. Normal acromion. Normal humeral head and visualized proximal humerus. The soft tissue structures are unremarkable. Normal visualized pulmonary apex. RAD/Shoulder min 2 Views IMPRESSION: Normal x-ray examination of the shoulder. Electronically Signed: Gage Velez MD at 18:44 EDT , CC: Dr. El Churchill, DO; No Primary Care Physician Manager Compensation: Signed [facility] UPPER EXTREMITY INJECTION: r ight supraspinatus tendon insertionon 05-13-2024 Monique Tanner MD 05/13/2024 8:40 PM UPPER EXTREMITY INJECTION: right supraspinatus tendon insertion Date/Time: 05/13/2024 8:30 AM Performed by: Monique Tanner MD Authorized by: Monique Tanner MD Supporting Documentation Indications: pain Procedure Details: Procedure: tendon origin / insertion injection Location: shoulder - right supraspinatus tendon insertion Local Anesthetic: lidocaine 1% Total Local Anesthetic: 5 mLs Guidance: ultrasound Correct final needle position was confirmed with direct visualization under real-time ultrasound Limited diagnostic ultrasound Ultrasound probe size: 12 mHz linear Images were saved electronically. Needle size: 21 G Needle length (in): 2.0in. Approach: lateral Medication Verification: I have personally verified and performed the final check of the medication(s) used in this procedure prior to administration. The following items were included during the verification process for medication(s) administered: drug name, strength, volume, expiration, physical integrity and appearance of the medication(s). Medications administered: 4 mL Sodium chloride (PF) 0.9 % Aspirate amount: 0 mL Patient tolerance: patient tolerated the procedure well with no immediate complications Comments [place] procedure performed for calcification within the supraspinatus tendon. Consent: Consent was obtained prior to the procedure after discussion of the risks, benefits and alternatives, and expected outcomes were discussed with the patient. The possibilities of reaction to medication, bleeding, infection, the need for additional procedures, failure to diagnosis a condition, and creating a complication requiring operation were discussed with the patient. The patient concurred with the proposed plan, giving consent. Preparation: Patient was prepped in the usual sterile fashion. The patient was prepped with Chloraprep. [facility] Radiology Study observation (narrative) [facility] US Unspecified body regionOr dered By: Unassigned Pacs on 05-13-2024 [facility] Work Phone: US Unspecified body regionon 05-13-2024 Radiology Study observation (narrative) [facility] Emergency Department Summary on 04-10-2024 Emergency Department Summary [facility] Medical Records Department [address] [place] [id number] Emergency Department Summary 04/10/24 MR#: [id number] Acct: [id number] Name: JAIRO ADKINS Jr. Rep #: [id number] : 1980 44 From: Blane Carlos DO PCP: Dr. Katia Belle MD Status:DEP ER Location: ED HPI History of Present Illness Chief Complaint: Abscess Informant: patient Narrative Narrative: 44-year-old male presenting to the emergency room out of concern for possible abscess of the left buttock. Patient states it has been there for a few days. He states that he had a incision and drainage of a buttock abscess near this area 1 month ago that is still healing. He states he has had several of these in the past. Patient notes it is very painful particularly to sit on. He denies any fevers. He has never had to see a surgeon for this. He believes he had 3 this area total in his lifetime. [facility] Medical History Vision problems History of ulcer disease Hearing problem History of blood transfusion Back problem Acute arthritis Seasonal allergies Substance abuse Anxiety Depression Smoker Migraines Diabetes TTP (thrombotic thrombocytopenic purpura) Home Medications ???Medication ???Instructions ???Recorded ???Last Taken ???Type flash glucose scanning reader #1 ea 02/28/24 Unknown Rx (FreeStyle Roxi 2 [place]) flash glucose sensor (FreeStyle #3 ea 02/28/24 Unknown Rx Roxi 2 Sensor kit) lisinopril 10 mg tablet 10 mg PO DAILY #30 tabs 02/28/24 Unknown Rx insulin glargine 100 unit/mL (3 40 unit (0.4 mL) subcut BID #24 mL 03/13/24 Unknown Rx mL) subcutaneous pen (Lantus Solostar U-100 Insulin) insulin lispro 100 unit/mL 20 unit subcut TID 03/19/24 Unknown History subcutaneous pen sulfamethoxazole 800 1 tab PO BID #20 tabs 03/19/24 Unknown Rx mg-trimethoprim 160 mg tablet pen needle, diabetic 29 gauge x #100 ea 03/26/24 Unknown Rx 1/2 dulaglutide 0.75 mg/0.5 mL 0.75 mg (0.5 mL) subcut QWEEK #2 mL 04/08/24 Unknown Rx subcutaneous pen injector (Trulicity) cephalexin 500 mg capsule 500 mg PO Q6 #40 CAPSULES 04/10/24 Unknown Rx hydrocodone-acetaminoph en 5-325mg 1 tab PO Q6H PRN PRN Pain 3 days 04/10/24 Unknown Rx 5mg-325mg #10 TABLETS sulfamethoxazole 800 1 tab PO BID #20 TABLETS 04/10/24 Unknown Rx mg-trimethoprim 160 mg tablet Allergy/AdvReac Type Severity Reaction Status Date / Time adhesive Allergy Rash Verified 04/10/24 19:27 dicyclomine HCl (From Bentyl) Allergy Hives Verified 04/10/24 19:27 fentanyl Allergy Hives Verified 04/10/24 19:27 Latex, Natural Rubber Allergy Rash Verified 04/10/24 19:27 methadone Allergy Other Verified 04/10/24 19:27 prednisone Allergy Rash Verified 04/10/24 19:27 tramadol HCl (From Ultram) Allergy Hives Verified 04/10/24 19:27 aspirin AdvReac Other Verified 04/10/24 19:27 ketorolac tromethamine (From AdvReac Upset Verified 04/10/24 19:27 Toradol) Stomach Family History Mother Diabetes Heart disease Cancer unknown Asthma Anxiety Arthritis Surgical History H/O eye surgery Social History household members: significant other, children and other details: [place] housing: house current occupational status: unemployed Smoking Status: Heavy Smoker (>10/day) Tobacco: How many years used: 30 Electronic Cigarette Use: not used quit status: considering quitting alcohol intake: never substance use type: marijuana what type of physical activity do you participate in: walking seatbelt use: always do you feel safe at home: Yes ROS ROS ED Constitutional Constitutional ED: Denies chills, fever(s) or weight loss Eyes Eyes: Denies change in vision or diplopia ENT ENT ED: Denies ear pain, rhinorrhea or sore throat Cardiovascular Cardiovascular: Denies chest pain, orthopnea, palpitations or racing heartbeat Respiratory/Chest Respiratory/Chest: Denies cough, dyspnea or orthopnea Gastrointestinal Gastrointestinal: Denies abdominal pain, diarrhea, nausea or vomiting Genitourinary Genitourinary ED: Denies dysuria, hematuria or urinary frequency Musculoskeletal Musculoskeletal: Denies arthralgias or myalgias Integumentary Reports abscess; Denies rash Neurologic Neurologic: Denies headache(s) or weakness Psychiatric Psychiatric: Denies anxiety, depression, suicidal ideation or suicidal thoughts Endocrine Endocrinology: Denies polydipsia, polyphagia or polyuria Allergic/Immunologic Allergic/Immunologic ED: Denies mouth swelling, tongue swelling or urticaria EXAM Physical Exam Const Vital Signs: 04/10/24 (more content not included)... Normal [facility] Emergency Department Summary on 03-19-2024 Emergency Department Summary [facility] Medical Records Department [address] [place] [address] Emergency Department Summary 03/19/24 MR#: [id number] Acct: [id number] Name: JAIRO ADKINS Jr. Rep #: [id number] : 1980 44 From: Ashok Norton MD PCP: Care Physician,No Primary Status:REG ER Location: ED HPI History of Present Illness Chief Complaint: Abscess Informant: patient Narrative Narrative: Spontaneous onset tender swollen area on his left buttock that occurred over the past couple days and feels similar to an abscess that he had on the contralateral buttock months ago. He denies any systemic symptoms. No obvious etiology such as a needle in the area of interest. [facility] Medical History Vision problems History of ulcer disease Hearing problem History of blood transfusion Back problem Acute arthritis Seasonal allergies Substance abuse Anxiety Depression Smoker Migraines Diabetes TTP (thrombotic thrombocytopenic purpura) Home Medications ???Medication ???Instructions ???Recorded ???Last Taken ???Type pen needle, diabetic 29 gauge x #100 ea 02/23/24 Unknown Rx 1/2 flash glucose scanning reader #1 ea 02/28/24 Unknown Rx (FreeStyle Roxi 2 [place]) flash glucose sensor (FreeStyle #3 ea 02/28/24 Unknown Rx Roxi 2 Sensor kit) lisinopril 10 mg tablet 10 mg PO DAILY #30 tabs 02/28/24 Unknown Rx dulaglutide 1.5 mg/0.5 mL 1.5 mg subcut QWEEK 03/10/24 Unknown History subcutaneous pen injector (Trulicity) insulin glargine 100 unit/mL (3 40 unit (0.4 mL) subcut BID #24 mL 03/13/24 Unknown Rx mL) subcutaneous pen (Lantus Solostar U-100 Insulin) dulaglutide 0.75 mg/0.5 mL 0.75 mg subcut QWEEK 03/19/24 Unknown History subcutaneous pen injector (Trulicity) insulin lispro 100 unit/mL 20 unit subcut TID 03/19/24 Unknown History subcutaneous pen sulfamethoxazole 800 1 tab PO BID #20 tabs 03/19/24 Unknown Rx mg-trimethoprim 160 mg tablet Allergy/AdvReac Type Severity Reaction Status Date / Time adhesive Allergy Rash Verified 03/19/24 00:18 dicyclomine HCl (From Bentyl) Allergy Hives Verified 03/19/24 00:18 fentanyl Allergy Hives Verified 03/19/24 00:18 Latex, Natural Rubber Allergy Rash Verified 03/19/24 00:18 methadone Allergy Other Verified 03/19/24 00:18 prednisone Allergy Rash Verified 03/19/24 00:18 tramadol HCl (From Ultram) Allergy Hives Verified 03/19/24 00:18 aspirin AdvReac Other Verified 03/19/24 00:18 ketorolac tromethamine (From AdvReac Upset Verified 03/19/24 00:18 Toradol) Stomach Family History (Updated 03/13/24 @ 10:[address] Katia Belle MD) Mother Diabetes Heart disease Cancer unknown Asthma Anxiety Arthritis Surgical History H/O eye surgery Social History household members: significant other, children and other details: [facility] housing: house current occupational status: unemployed Smoking Status: Heavy Smoker (>10/day) Tobacco: How many years used: 30 Electronic Cigarette Use: not used quit status: considering quitting alcohol intake: never substance use type: marijuana what type of physical activity do you participate in: walking seatbelt use: always do you feel safe at home: Yes ROS ROS ED Constitutional Constitutional ED: Denies chills or fever(s) Respiratory/Chest Respiratory/Chest: Denies dyspnea Gastrointestinal Gastrointestinal: Denies nausea or vomiting Integumentary Reports as per HPI and abscess; Denies rash Neurologic Neurologic: Denies headache(s), paresthesias or weakness EXAM Physical Exam Const Vital Signs: 03/19/24 00:19 Temperature 98.3 F Temperature Source Oral Pulse Rate 75 Respiratory Rate 18 Blood Pressure 141/87 H Blood Pressure Mean 105 Pulse Ox 97 Oxygen Delivery Method Room Air Positive well nourished and well developed General Appearance ED: well developed and NAD HEENT Reports moist mucous membranes normocephalic and atraumatic Eyes EOMs intact bilaterally Neck full ROM and supple Resp normal respiratory effort Back/Spine General Back: other FROM Extremity normal to inspection General Extremety ED: Negative for edema General Extremity: Negative for edema Neuro oriented x3, CN's II-XII intact bilaterally and no sensory deficits noted Sensorium / Orientation: awake and alert Motor Exam: strength 5/5 throughout Skin Skin Narrative: 4-5 cm indurated abscess without spontaneous discharge left buttock MDM MDM MDM Narrative Medical decision making narrative: Abscess incised and drained and packed, see the procedure note. Patient tolerated well asking for (more content not included)... Normal [facility] ED Nursing Noteon 03-17-2024 ED Nursing Note Patient arrived with steady gait to room 2. Patient complains of boil on left buttocks x 4 days. Patient denies any drainage, nausea, vomiting, fever or chills. Pain 10/10. Normal [facility] ED Provider Noteon ED Provider Note EMERGENCY DEPARTMENT ENCOUNTER Pt Name: Jairo Adkins Birthdate 1980 Date of evaluation: 03/17/2024 ED Provider: Akbar Boogie MD CHIEF COMPLAINT Chief Complaint Patient presents with Abscess Left buttocks History from patient HISTORY OF PRESENT ILLNESS (Location/Symptom, Timing/Onset, Context/Setting, Quality, Duration, Modifying Factors, Severity) Note limiting factors. I wore appropriate PPE for the entirety of this encounter. HPI Jairo Adkins is a 44 y.o. who presents to the emergency department complaining of abscess. Patient states starting 3 to 4 days ago he developed pain and swelling of his left butt cheek. Similar to his previous buttocks abscesses. Last was 3 months ago. Tetanus immunization up-to-date. No fevers or chills. Hurts to touch. Hurts to sit. He was hoping it would go away but when [id number] medications did not work he came to the emergency department for evaluation. No other complaint. Nursing Notes were reviewed. Limitations to history: None Outside historians: None REVIEW OF SYSTEMS Review of Systems Constitutional: Negative for fever. Eyes: Negative for visual disturbance. Respiratory: Negative for shortness of breath. Cardiovascular: Negative for chest pain. Gastrointestinal: Negative for abdominal pain. Genitourinary: Negative for difficulty urinating. Musculoskeletal: Negative for back pain and neck pain. Skin: Positive for color change. Negative for pallor, rash and wound. Neurological: Negative for headaches. Psychiatric/Behavioral: Negative for self-injury. Pertinent positives and negatives as per HPI PAST MEDICAL HISTORY Past Medical History: Diagnosis Date T.T.P. syndrome (HCC) SURGICAL HISTORY Past Surgical History: Procedure Laterality Date OTHER SURGICAL HISTORY Fresh frozen plasma due to blood disorder CURRENT MEDICATIONS Previous Medications No medications on file ALLERGIES Tramadol, Fentanyl and related, Ketorolac, Methadone, Prednisone, and Tape FAMILY HISTORY No family history on file. SOCIAL HISTORY Social History Socioeconomic History Marital status: Tobacco Use Smoking status: Every Day Packs/day: 2 Types: Cigarettes Vaping Use Vaping Use: Never used Substance and Sexual Activity Alcohol use: No Drug use: Yes Types: Marijuana Comment: Daily use SCREENINGS PHYSICAL EXAM ED Triage Vitals Temp Pulse Resp BP -- -- -- -- SpO2 Temp src Heart Rate Source Patient Position -- -- -- -- BP Location FiO2 (%) -- -- Physical Exam Constitutional: Appearance: Normal appearance. HENT: Head: Normocephalic and atraumatic. Eyes: Extraocular Movements: Extraocular movements intact. Pupils: Pupils are equal, round, and reactive to light. Cardiovascular: Rate and Rhythm: Normal rate. Pulmonary: Effort: Pulmonary effort is normal. Musculoskeletal: General: Normal range of motion. Skin: General: Skin is warm and dry. Capillary Refill: Capillary refill takes less than 2 seconds. Neurological: General: No focal deficit present. Mental Status: He is alert. Ambulatory Not febrile not toxic Skin -2 cm diameter red raised lesion on the superior lateral quadrant of the left buttocks. No fluctuance. No induration. Tender to touch DIAGNOSTIC RESULTS RADIOLOGY (Per Emergency Physician): POCUS Indication -skin abscess Imaging -superficial transducer Image quality -fair Findings -cobblestoning without large fluid collection Interpretation -no drainable abscess Images stored to PACS EMERGENCY DEPARTMENT COURSE and DIFFERENTIAL DIAGNOSIS/MDM: Vitals: Vitals: 03/17/24 1458 BP: 119/65 BP Location: Right arm Patient Position: Sitting Pulse: 93 Resp: 16 Temp: 36.6 ?C (97.8 ?F) TempSrc: Oral SpO2: 100% Weight: 118 kg (260 lb) Medications oxyCODONE-acetaminophen (Percocet) 5-325 MG per tablet 2 tablet (has no administration in time range) Medical Decision Making and ED Course The patient presented with a chief complaint of skin lesion. The differential diagnosis associated with this patient's presentation includes cellulitis abscess foreign body. Our workup consisted of ordering/reviewing history physical examination and POCUS. History and physical examination consistent with a local infection. POCUS shows that there are changes but no localizable drainable fluid collection. Will begin patient on antibiotics, have him do warm soaks to localize and hopefully drain the abscess. He can follow-up here or with his PCP. He agrees with plan. Independent test interpretation by me: POCUS Chronic conditions impacting care: Diabetes puts him at increased risk for infection, family history of skin abscesses could indicate a complement deficiency Social determinants of health affecting care: Smoker ED medications: Patient asked for pain medications and received Percocet with improvement of his s (more content not included)... Normal [facility] Comprehensive Metabolic Prof ilon 03-13-2024 Albumin [Mass/Vol] 3.7 g/dL Normal 3.2-5.0 [facility] Comment on above: Performed By: #### L 500.4050, L502.0250 ####[facility] [address] [place], [address] Albumin/Globulin [Mass ratio] 0.8 {ratio} Low 0.9-2.4 [facility] Comment on above: Performed By: #### L 500.4050, L502.0250 ####[facility] [address] [place], [address] ALK P 166 U/L High 45-117 [facility] Comment on above: Performed By: #### L 500.4050, L502.0250 ####[facility] [address] [place], [address] ALT [Catalytic activity/Vol] 171 U/L High 16-61 [facility] Comment on above: Performed By: #### L 500.4050, L502.0250 ####[facility] [address] [place], [address] AST [Catalytic activity/Vol] 92 U/L High 15-37 [facility] Comment on above: Performed By: #### L 500.4050, L502.0250 ####[facility] [address] [place], [address] Bilirubin [Mass/Vol] 0.50 mg/dL Normal 0.20-1.00 [facility] Comment on above: Result Comment: For patients on eltrombopag therapy, use of Dimension [place] TBIL is not recommended. Performed By: #### L 500.4050, L502.0250 ####[facility] [address] [place], [address] BUN/CRE 16.9 RATIO Normal 10-20 [facility] Comment on above: Performed By: #### L 500.4050, L502.0250 ####[facility] [address] [place], [address] CA,Total 9.8 mg/dL Normal 8.5-10.1 [facility] Comment on above: Performed By: #### L 500.4050, L502.0250 ####[facility] [address] [place], [address] Chloride [Moles/Vol] 99 mmol/L Normal 98-107 [facility] Comment on above: Performed By: #### L 500.4050, [id number] ####[facility] [address] [place], [address] CO2 [Moles/Vol] 25.0 mmol/L Normal 21.0-32.0 [facility] Comment on above: Performed By: #### L 500.4050, L502.0250 ####[facility] [address] [place], [address] Creatinine [Mass/Vol] 0.95 mg/dL Normal 0.70-1.30 [facility] Comment on above: Result Comment: The validity of the calculated GFR GFRAA in patients over 70 years has not been determined. Clinical correlation is essential. Performed By: #### L 500.4050, L502.0250 ####[facility] [address] [place], [address] EST GFR - AA 112 mL/min Normal >60 [facility] Comment on above: Result Comment: Afri can [place] GFR Calc Performed By: #### L 500.4050, [id number] ####[facility] [address] [place], [address] GAP 8 Normal 5-15 [facility] Comment on above: Performed By: #### L 500.4050, [id number] ####[facility] [address] [place], [address] GFR/1.73 sq M.predicted among non-blacks MDRD (S/P/Bld) [Vol rate/Area] 92 mL/min/{1.73_m2} Normal >60 [facility] Comment on above: Result Comment: Non- GFR Calc Performed By: #### L 500.4050, L502.0250 ####[facility] [address] [place], [address] Globulin (S) [Mass/Vol] 4.5 g/dL High 2.2-4.2 [facility] Comment on above: Performed By: #### L 500.4050, [id number] ####[facility] [address] [place], [address] Glucose [Mass/Vol] 344 mg/dL High 74-106 [facility] Comment on above: Result Comment: Gluc ose result greater than or equal to 200 mg/dL suggests DIABETES MELLITUS per A.D.A. criteria. Performed By: #### L 500.4050, [id number] ####[facility] [address] [place], [address] Potassium [Moles/Vol] 4.2 mmol/L Normal 3.5-5.1 [facility] Comment on above: Performed By: #### L 500.4050, L502.0250 ####[facility] [address] [place], [address] Sodium [Moles/Vol] 132 mmol/L Low 136-145 [facility] Comment on above: Performed By: #### L 500.4050, L502.0250 ####[facility] [address] [place], [address] T PROT 8.2 g/dL Normal 6.4-8.2 [facility] Comment on above: Performed By: #### L 500.4050, L502.0250 ####[facility] [address] [place], [address] Urea nitrogen [Mass/Vol] 16 mg/dL Normal 7-18 [facility] Comment on above: Performed By: #### L 500.4050, L502.0250 ####[facility] [address] [place], [address] Microalb:Creat Ratio,Random URon 03-13-2024 Creatinine [Mass/Vol] 92.40 mg/dL Normal NO RAN GE EST. [facility] Comment on above: Performed By: #### L 500.4050, L502.0250 ####[facility] [address] [place], [address] MALB:CRE 15.7 mg/g CRE Normal <30 mg/g CRE [facility] Comment on above: Performed By: #### L 500.4050, L502.0250 ####[facility] [address] [place], [address] MICROALBUMIN,UR 14.5 mg/L Normal NO RANGE EST. [facility] Comment on above: Performed By: #### L 500.4050, L502.0250 ####[facility] [address] [place], [address] Internal Medicine Office Vis iton 03-12-2024 Internal Medicine Office Visit [facility] [address] [place] [address] [place] [address] OFFICE VISIT Date of Service: 03/13/24 MR#: [id number] Acct: [id number] Name: JAIRO ADKINS Jr. Rep #: [id number] : 1980 Provider: Dr. Katia smith MD Age/Sex: 44/M [place] [facility] [place]: Signed Intake Vital Signs 02/23/24 09:39 03/10/24 14:43 03/13/24 10:34 Height 5 ft 9 in 5 ft 9 in 5 ft 9 in Weight: 268 lb 2 oz BMI 39.6 BP 122/80 H Blood Pressure Location Lt brachial Position Sitting Respiration 16 Pulse 75 Pulse Source Monitor Temp 97.6 F L Temp Source Temporal Pulse Oximetry (%) 99 Oxygen Delivery Method room air Intake Visit Reasons: EST NEW PT - KEEP 1 HOUR Chief Complaint: est care Installation And Repair Technician Required: No Accompanied by: Is patient in pain?: No Allergies adhesive Allergy (Verified 03/13/24 10:30) Rash dicyclomine HCl (From Bentyl) Allergy (Verified 03/13/24 10:30) Hives fentanyl Allergy (Verified 03/13/24 10:30) Hives Latex, Natural Rubber Allergy (Verified 03/13/24 10:30) Rash methadone Allergy (Verified 03/13/24 10:30) Other prednisone Allergy (Verified 03/13/24 10:30) Rash tramadol HCl (From Ultram) Allergy (Verified 03/13/24 10:30) Hives aspirin Adverse Reaction (Verified 03/13/24 10:30) Other ketorolac tromethamine (From Toradol) Adverse Reaction (Verified 03/13/24 10:30) Upset Stomach Medications ???Medication ???Instructions ???Recorded ???Confirmed ???Type pen needle, diabetic 29 gauge x #100 ea 02/23/24 03/13/24 Rx 1/2 flash glucose scanning reader #1 ea 02/28/24 03/13/24 Rx (FreeStyle Roxi 2 [place]) flash glucose sensor (FreeStyle #3 ea 02/28/24 03/13/24 Rx Roxi 2 Sensor kit) lisinopril 10 mg tablet 10 mg PO DAILY #30 tabs 02/28/24 03/13/24 Rx dulaglutide 1.5 mg/0.5 mL 1.5 mg subcut QWEEK 03/10/24 03/13/24 History subcutaneous pen injector (Trulicity) insulin glargine 100 unit/mL (3 40 unit (0.4 mL) subcut BID #24 mL 03/13/24 03/13/24 Rx mL) subcutaneous pen (Lantus Solostar U-100 Insulin) [facility] Medical History (Updated 03/13/24 @ 11:[address] Katia Belle MD) Vision problems History of ulcer disease Hearing problem History of blood transfusion Back problem Acute arthritis Seasonal allergies Substance abuse Anxiety Depression Smoker Migraines Diabetes TTP (thrombotic thrombocytopenic purpura) Surgical History H/O eye surgery Family History (Updated 03/13/24 @ 10:[address] Katia Belle MD) Mother Diabetes Heart disease Cancer unknown Asthma Anxiety Arthritis Social History (Updated 03/13/24 @ 10:[address] Katia Belle MD) household members: significant other, children and other details: [facility] housing: house current occupational status: unemployed Smoking Status: Current every day smoker tobacco type: cigarettes Tobacco: How many years used: 30 Electronic Cigarette Use: not used quit status: considering quitting alcohol intake: never substance use type: marijuana what type of physical activity do you participate in: walking seatbelt use: always do you feel safe at home: Yes HPI HPI Chief Complaint: est care Details: JAIRO ADKINS, is a 44 M who presents to the office today to establish care. He was seeing a provider in [place] and last saw them in the fall. He is due for some routine blood work and isn't due for any screening. He doesn't want any immunizations. He does smoke and does want to quit, but isn't ready yet. He doesn't need any refills. He reports he is eating healthy and staying active. The patient was diagnosed with diabetes about 3 years ago. He does check his sugars at home. He reports his sensor has just been reading high, so he isn't sure what his readings have been. He does try to monitor his carbohydrate and sugar intake. He is not up to date on his diabetic eye exam and doesn't see podiatry. The patient presented to the ED on 02/22 with complaints of hyperglycemia. He had been out of his medications for a couple of months and was unable to get refills from his previous PCP so he went to the ED. In the ED, the patient was noted to be in HHS. Admission was discussed, but the patient reported he had to go home to take care of things first and left AMA. He returned later that day and was admitted. During his admission, he was placed on an insulin drip and IVF. He later signed out AMA that same day. He reports he didn't feel that he was treated well. The patient was seen in the office by ALBIN Way, on 02/27. Further medications were discussed including diabetic medications and cholesterol medications, but he declined stating he only wanted to take what he was previously taking. He returned to the ED on 03/04 with hyperglycemia. W (more content not included)... Normal [facility] Acetone Serumon 03-10-2024 ACETONE SERUM Negative Normal NEG [facility] Comment on above: Performed By: #### L 500.3400, L501.2450, L501.7300, L100.0100, L501.6900 #### [facility] [address] [place], [address] Basic Metabolic Profile (BMP )on 03-10-2024 BUN/CRE 19.5 RATIO Normal 10-20 [facility] Comment on above: Performed By: #### L 500.3400, L501.2450, L501.7300, L100.0100, L501.6900 #### [facility] [address] [place], [address] CA,Total 10.1 mg/dL Normal 8.5-10.1 [facility] Comment on above: Performed By: #### L 500.3400, L501.2450, L501.7300, L100.0100, L501.6900 #### [facility] [address] [place], [address] Chloride [Moles/Vol] 88 mmol/L Low 98-107 [facility] Comment on above: Performed By: #### L 500.3400, L501.2450, L501.7300, L100.0100, L501.6900 #### [facility] [address] [place], [address] CO2 [Moles/Vol] 22.0 mmol/L Normal 21.0-32.0 [facility] Comment on above: Performed By: #### L 500.3400, L501.2450, L501.7300, L100.0100, L501.6900 #### [facility] [address] [place], [address] Creatinine [Mass/Vol] 1.23 mg/dL Normal 0.70-1.30 [facility] Comment on above: Result Comment: The validity of the calculated GFR GFRAA in patients over 70 years has not been determined. Clinical correlation is essential. Performed By: #### L 500.3400, L501.2450, L501.7300, L100.0100, L501.6900 #### [facility] [address] [place], [address] ECRCL 100.52 ml/min Normal [facility] Comment on above: Performed By: #### L 500.3400, L501.2450, L501.7300, L100.0100, L501.6900 #### [facility] [address] [place], [address] EST GFR - AA 83 mL/min Normal >60 [facility] Comment on above: Result Comment: Afri can Greenlandic GFR Calc Performed By: #### L 500.3400, L501.2450, L501.7300, L100.0100, L501.6900 #### [facility] [address] [place], [address] GAP 12 Normal 5-15 [facility] Comment on above: Performed By: #### L 500.3400, L501.2450, L501.7300, L100.0100, L501.6900 #### [facility] [address] [place], [address] GFR/1.73 sq M.predicted among non-blacks MDRD (S/P/Bld) [Vol rate/Area] 68 mL/min/{1.73_m2} Normal >60 [facility] Comment on above: Result Comment: Non- GFR Calc Performed By: #### L 500.3400, L501.2450, L501.7300, L100.0100, L501.6900 #### [facility] [address] [place], [address] Glucose [Mass/Vol] 1000 mg/dL Invalid Interpretation Code 74-106 [facility] Comment on above: Result Comment: Crit ical Result(s) Called at: 15:44:19 03/10/2024 by: zeb mcdaniels to HOrr. Results read back by same. Glucose result greater than or equal to 200 mg/dL suggests DIABETES MELLITUS per A.D.A. criteria. Performed By: #### L 500.3400, L501.2450, L501.7300, L100.0100, L501.6900 #### [facility] [address] [place], [address] Potassium [Moles/Vol] 4.7 mmol/L Normal 3.5-5.1 [facility] Comment on above: Result Comment: Slig ht Hemolysis, Result may be falsely increased. Performed By: #### L 500.3400, L501.2450, L501.7300, L100.0100, L501.6900 #### [facility] [address] [place], [address] Sodium [Moles/Vol] 122 mmol/L Low 136-145 [facility] Comment on above: Performed By: #### L 500.3400, L501.2450, L501.7300, L100.0100, L501.6900 #### [facility] [address] [place], [address] Urea nitrogen [Mass/Vol] 24 mg/dL High 7-18 [facility] Comment on above: Performed By: #### L 500.3400, L501.2450, L501.7300, L100.0100, L501.6900 #### [facility] [address] [place], [address] CBC W/Diff, Automatedon 05-2 Absolute Lymph 3.19 X10 3/uL Normal 0.83-4.51 [facility] Comment on above: Performed By: #### L 500.3400, L501.2450, L501.7300, L100.0100, L501.6900 #### [facility] [address] [place], [address] Absolute Neut 5.4 X10 3/uL Normal 2.0-7.7 [facility] Comment on above: Performed By: #### L 500.3400, L501.2450, L501.7300, L100.0100, L501.6900 #### [facility] [address] [place], [address] Basophils/100 WBC (Bld) 1.0 % Normal 0-1 [facility] Comment on above: Performed By: #### L 500.3400, L501.2450, L501.7300, L100.0100, L501.6900 #### [facility] [address] [place], [address] Eosinophils/100 WBC (Bld) 3.6 % Normal 0-5 [facility] Comment on above: Performed By: #### L 500.3400, L501.2450, L501.7300, L100.0100, L501.6900 #### [facility] [address] [place], [address] Erythrocyte distribution width (RBC) [Ratio] 12.6 % Normal 11.6-14.6 [facility] Comment on above: Performed By: #### L 500.3400, L501.2450, L501.7300, L100.0100, L501.6900 #### [facility] [address] [place], [address] Hematocrit (Bld) [Volume fraction] 46.6 % Normal 40-54 [facility] Comment on above: Performed By: #### L 500.3400, L501.2450, L501.7300, L100.0100, L501.6900 #### [facility] [address] [place], [address] Hemoglobin (Bld) [Mass/Vol] 16.0 g/dL Normal 13.0-16.5 [facility] Comment on above: Performed By: #### L 500.3400, L501.2450, L501.7300, L100.0100, L501.6900 #### [facility] [address] [place], [address] IG% 0.300 Normal 0.0-0.9 [facility] Comment on above: Result Comment: IG% - Immature Granulocytes (promyelocytes, myelocytes and metamyelocytes) > 1% indicates that a LEFT SHIFT is Present. Performed By: #### L 500.3400, L501.2450, L501.7300, L100.0100, L501.6900 #### [facility] [address] [place], [address] Lymphocytes/100 WBC (Bld) 32.5 % Normal 19-41 [facility] Comment on above: Performed By: #### L 500.3400, L501.2450, L501.7300, L100.0100, L501.6900 #### [facility] [address] [place], [address] MCH (RBC) [Entitic mass] 30.2 pg Normal 27.0-32.0 [facility] Comment on above: Performed By: #### L 500.3400, L501.2450, L501.7300, L100.0100, L501.6900 #### [facility] [address] [place], [address] MCHC (RBC) [Mass/Vol] 34.3 g/dL Normal 32-36 [facility] Comment on above: Performed By: #### L 500.3400, L501.2450, L501.7300, L100.0100, L501.6900 #### [facility] [address] [place], [address] MCV (RBC) [Entitic vol] 87.9 fL Normal 80-94 [facility] Comment on above: Performed By: #### L 500.3400, L501.2450, L501.7300, L100.0100, L501.6900 #### [facility] [address] [place], [address] Monocytes/100 WBC (Bld) 8.1 % Normal 0-10 [facility] Comment on above: Performed By: #### L 500.3400, L501.2450, L501.7300, L100.0100, L501.6900 #### [facility] [address] [place], [address] Neutrophils/100 WBC (Bld) 54.5 % Normal 47-70 [facility] Comment on above: Performed By: #### L 500.3400, L501.2450, L501.7300, L100.0100, L501.6900 #### [facility] [address] [place], [address] Nucleated RBC (Bld) [#/Vol] 0 10*3/uL Normal 0-5 [facility] Comment on above: Performed By: #### L 500.3400, L501.2450, L501.7300, L100.0100, L501.6900 #### [facility] [address] [place], [address] Platelet mean volume (Bld) [Entitic vol] 11.7 fL Normal 6.2-12.0 [facility] Comment on above: Performed By: #### L 500.3400, L501.2450, L501.7300, L100.0100, L501.6900 #### [facility] [address] [place], [address] Platelets (Bld) [#/Vol] 251 10*3/uL Normal 150-450 [facility] Comment on above: Performed By: #### L 500.3400, L501.2450, L501.7300, L100.0100, L501.6900 #### [facility] [address] [place], [address] RBC (Bld) [#/Vol] 5.30 10*6/uL Normal 4.6-6.2 [facility] Comment on above: Performed By: #### L 500.3400, L501.2450, L501.7300, L100.0100, L501.6900 #### [facility] [address] [place], [address] RDW SD 40.7 fl Normal 35.1-43.9 [facility] Comment on above: Performed By: #### L 500.3400, L501.2450, L501.7300, L100.0100, L501.6900 #### [facility] [address] [place], [address] WBC (Bld) [#/Vol] 9.8 10*3/uL Normal 4.4-11.0 [facility] Comment on above: Performed By: #### L 500.3400, L501.7580, L501.7300, L100.0100, L501.6900 #### [facility] [address] [place], [address] Emergency Department Summary on 03-10-2024 Emergency Department Summary [facility] Medical Records Department [address] [place] [address] Emergency Department Summary 03/10/24 MR#: [id number] Acct: [id number] Name: JAIRO ADKINS Jr. Rep #: [id number] : 1980 44 From: Markell Mcconnell DO PCP: Care Physician,No Primary Status:DEP ER Location: ED HPI History of Present Illness Chief Complaint: Hyperglycemia Narrative Narrative: 44-year-old male with type 2 diabetes was here last night in the emergency room for hyperglycemia. He was treated with IV fluids and insulin and states his sugars were about 300 when he left at 3:30 AM. Since then he states he has had water, Gatorade 0 and diet pop but his sugars are reading high again. He feels lightheaded and has polyuria and polydipsia. He takes Lantus 30 units twice a day. He has been out of Trulicity since December 2023 due to prior authorization issues. 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 [facility] Medical History (Updated 03/10/24 @ 16:42 by ALBIN Antoine) Vision problems History of ulcer disease Hearing problem History of blood transfusion Back problem Acute arthritis Seasonal allergies Bipolar disorder Substance abuse Anxiety Depression Smoker Migraines Diabetes TTP (thrombotic thrombocytopenic purpura) Home Medications ???Medication ???Instructions ???Recorded ???Last Taken ???Type pen needle, diabetic 29 gauge x #100 ea 02/23/24 Unknown Rx 1/2 flash glucose scanning reader #1 ea 02/28/24 Unknown Rx (FreeStyle Roxi 2 [place]) flash glucose sensor (FreeStyle #3 ea 02/28/24 Unknown Rx Roxi 2 Sensor kit) lisinopril 10 mg tablet 10 mg PO DAILY #30 tabs 02/28/24 Unknown Rx dulaglutide 1.5 mg/0.5 mL 1.5 mg subcut QWEEK 03/10/24 Unknown History subcutaneous pen injector (Trulicity) insulin glargine 100 unit/mL (3 30 unit subcut BID 03/10/24 Unknown History mL) subcutaneous pen (Lantus Solostar U-100 Insulin) Allergy/AdvReac Type Severity Reaction Status Date / Time adhesive Allergy Rash Verified 03/08/24 23:18 dicyclomine HCl (From Bentyl) Allergy Hives Verified 03/08/24 23:18 fentanyl Allergy Hives Verified 03/08/24 23:18 Latex, Natural Rubber Allergy Rash Verified 03/08/24 23:18 methadone Allergy Other Verified 03/08/24 23:18 prednisone Allergy Rash Verified 03/08/24 23:18 tramadol HCl (From Ultram) Allergy Hives Verified 03/08/24 23:18 aspirin AdvReac Other Verified 03/08/24 23:18 ketorolac tromethamine (From AdvReac Upset Verified 03/08/24 23:18 Toradol) Stomach Family History (Updated 02/28/24 @ 10:48 by Vaishnavi Paz MA) Mother Diabetes Heart disease Cancer Asthma Anxiety Arthritis Surgical History H/O eye surgery Social History (Updated 02/28/24 @ 10:39 by Vaishnavi Paz MA) household members: significant other, children and other details: [facility] housing: house current occupational status: unemployed Smoking Status: Heavy Smoker (>10/day) Tobacco: How many years used: 30 alcohol intake: never substance use type: former substance user and marijuana what type of physical activity do you participate in: walking seatbelt use: always do you feel safe at home: Yes ROS ROS ED ROS Narrative Constitutional: Negative for fever, chills, malaise. CVS: Negative for chest pain. Respiratory: Negative for shortness of breath. GI: Negative for abdominal pain, nausea, vomiting. EXAM Physical Exam Narrative Exam Narrative: CONST: Patient sitting in no acute distress. EYES: Normal inspection. NECK: Normal inspection. RESP: No respiratory distress, CTAB. CVS: Regular rate and rhythm, no murmur, no gallop. SKIN: Color normal, no rash, warm, dry, intact. EXTREMITIES: Normal appearance, no pedal edema. NEURO: Alert and answering questions appropriately. PSYCH: Normal affect. Const Vital Signs: 03/10/24 14:43 03/10/24 15:02 Temperature 98 F Temperature Source Temporal Pulse Rate 105 H Respiratory Rate 16 Respiratory Effort Normal Respiratory Pattern Normal Blood Pressure 134/85 H Blood Pressure Mean 101 Pulse Ox 98 Oxygen Delivery Method Room Air Physical Exam Const Vital Signs: 03/10/24 14:43 03/10/24 15:02 Temperature 98 F Temperature Source Temporal Pulse Rate 105 H Respiratory Rate 16 Respiratory Effort Normal Respiratory Pattern Normal Blood Pressure 134/85 H Blood Pressure Mean 101 Pulse Ox 98 Oxygen Delivery Method Room Air MDM MDM MDM Narrative Medical decision making narrative: History gathered from: Patient and family Differential: HHS versus DKA versus medication noncompliance Patient present (more content not included)... Normal [facility] Urinalysis, Completeon 03-10 BACTERIA 0 SEEN Normal None Seen [facility] Comment on above: Order Comment: RANGEL CTOR TO SPECIFY Performed By: #### L 500.3400, L501.2450, L501.7300, L100.0100, L501.6900 #### [facility] [address] [place], [address] EPI,SQUAMOUS 0 SEEN Normal 0-5 [facility] Comment on above: Order Comment: RANGEL CTOR TO SPECIFY Performed By: #### L 500.3400, L501.2450, L501.7300, L100.0100, L501.6900 #### [facility] [address] [place], [address] Mucus Ql (Urine sed) 0 SEEN Normal [facility] Comment on above: Order Comment: RANGEL CTOR TO SPECIFY Performed By: #### L 500.3400, L501.2450, L501.7300, L100.0100, L501.6900 #### [facility] [address] [place], [address] RBC 0 SEEN Normal 0-5 [facility] Comment on above: Order Comment: COLLE CTOR TO SPECIFY Performed By: #### L 500.3400, L501.2450, L501.7300, L100.0100, L501.6900 #### [facility] [address] [place], [address] WBC 0 SEEN Normal 0-5 [facility] Comment on above: Order Comment: COLLE CTOR TO SPECIFY Performed By: #### L 500.3400, L501.2450, L501.7300, L100.0100, L501.6900 #### [facility] [address] [place], [address] Acetone Serumon 03-09-2024 ACETONE SERUM Negative Normal NEG [facility] Comment on above: Performed By: #### L 500.3400, L501.2450, L501.7300, L100.0100, L501.6900 #### [facility] [address] [place], [address] Basic Metabolic Profile (BMP )on 03-09-2024 BUN/CRE 19.1 RATIO Normal 10-20 [facility] Comment on above: Performed By: #### L 500.3400, L501.2450, L501.7300, L100.0100, L501.6900 #### [facility] [address] [place], [address] CA,Total 9.4 mg/dL Normal 8.5-10.1 [facility] Comment on above: Performed By: #### L 500.3400, L501.2450, L501.7300, L100.0100, L501.6900 #### [facility] [address] [place], [address] Chloride [Moles/Vol] 92 mmol/L Low 98-107 [facility] Comment on above: Performed By: #### L 500.3400, L501.2450, L501.7300, L100.0100, L501.6900 #### [facility] [address] [place], [address] CO2 [Moles/Vol] 21.0 mmol/L Normal 21.0-32.0 [facility] Comment on above: Performed By: #### L 500.3400, L501.2450, L501.7300, L100.0100, L501.6900 #### [facility] [address] [place], [address] Creatinine [Mass/Vol] 1.31 mg/dL High 0.70-1.30 [facility] Comment on above: Result Comment: The validity of the calculated GFR GFRAA in patients over 70 years has not been determined. Clinical correlation is essential. Performed By: #### L 500.3400, L501.2450, L501.7300, L100.0100, L501.6900 #### [facility] [address] [place], [address] ECRCL 93.81 ml/min Normal [facility] Comment on above: Performed By: #### L 500.3400, L501.2450, L501.7300, L100.0100, L501.6900 #### [facility] [address] [place], [address] EST GFR - AA 77 mL/min Normal >60 [facility] Comment on above: Result Comment: Afri can Greenlandic GFR Calc Performed By: #### L 500.3400, L501.2450, L501.7300, L100.0100, L501.6900 #### [facility] [address] [place], [address] GAP 11 Normal 5-15 [facility] Comment on above: Performed By: #### L 500.3400, L501.2450, L501.7300, L100.0100, L501.6900 #### [facility] [address] [place], [address] GFR/1.73 sq M.predicted among non-blacks MDRD (S/P/Bld) [Vol rate/Area] 63 mL/min/{1.73_m2} Normal >60 [facility] Comment on above: Result Comment: Non- GFR Calc Performed By: #### L 500.3400, L501.2450, L501.7300, L100.0100, L501.6900 #### [facility] [address] [place], [address] Glucose [Mass/Vol] 793 mg/dL Invalid Interpretation Code 74-106 [facility] [facility] Comment on above: Result Comment: Crit ical Result(s) Called at: 00:32:24 03/09/2024 by: Glenroy Baires. to Tylor CHRISTENSEN Ed. Results read back by same. Glucose result greater than or equal to 200 mg/dL suggests DIABETES MELLITUS per A.D.A. criteria. Performed By: #### L 500.3400, L501.2450, L501.7300, L100.0100, L501.6900 #### [facility] [address] [place], [address] Potassium [Moles/Vol] 4.6 mmol/L Normal 3.5-5.1 [facility] Comment on above: Performed By: #### L 500.3400, L501.2450, L501.7300, L100.0100, L501.6900 #### [facility] [address] [place], [address] Sodium [Moles/Vol] 124 mmol/L Low 136-145 [facility] Comment on above: Performed By: #### L 500.3400, L501.2450, L501.7300, L100.0100, L501.6900 #### [facility] [address] [place], [address] Urea nitrogen [Mass/Vol] 25 mg/dL High 7-18 [facility] Comment on above: Performed By: #### L 500.3400, L501.2450, L501.7300, L100.0100, L501.6900 #### [facility] [address] [place], [address] Bedside Glucoseon 03-09-2024 FINGERSTICK GLU 498 mg/dL Invalid Interpretation Code 106 [facility] Comment on above: Result Comment: Insu miles Given MANAGEMENT OF PATIENT CARE PER NURSING PROTOCOL Performed By: #### L 500.3400, L501.2450, L501.7300, L100.0100, L501.6900 #### [facility] [address] [place], [address] FINGERSTICK GLU > 500 Invalid Interpretation Code [facility] Comment on above: Result Comment: Dr Gay mcintyre Followed MANAGEMENT OF PATIENT CARE PER NURSING PROTOCOL Performed By: #### L 500.3400, L501.2450, L501.7300, L100.0100, L501.6900 #### [facility] [address] [place], [address] CBC W/Diff, Automatedon 02-14 Absolute Lymph 3.00 X10 3/uL Normal 0.83-4.51 [facility] Comment on above: Performed By: #### L 500.3400, L501.2450, L501.7300, L100.0100, L501.6900 #### [facility] [address] [place], [address] Absolute Neut 4.5 X10 3/uL Normal 2.0-7.7 [facility] Comment on above: Performed By: #### L 500.3400, L501.2450, L501.7300, L100.0100, L501.6900 #### [facility] [address] [place], [address] Basophils/100 WBC (Bld) 1.2 % High 0-1 [facility] Comment on above: Performed By: #### L 500.3400, L501.2450, L501.7300, L100.0100, L501.6900 #### [facility] [address] [place], [address] Eosinophils/100 WBC (Bld) 4.2 % Normal 0-5 [facility] Comment on above: Performed By: #### L 500.3400, L501.2450, L501.7300, L100.0100, L501.6900 #### [facility] [address] [place], [address] Erythrocyte distribution width (RBC) [Ratio] 12.8 % Normal 11.6-14.6 [facility] Comment on above: Performed By: #### L 500.3400, L501.2450, L501.7300, L100.0100, L501.6900 #### [facility] [address] [place], [address] Hematocrit (Bld) [Volume fraction] 45.0 % Normal 40-54 [facility] Comment on above: Performed By: #### L 500.3400, L501.2450, L501.7300, L100.0100, L501.6900 #### [facility] [address] [place], [address] Hemoglobin (Bld) [Mass/Vol] 15.6 g/dL Normal 13.0-16.5 [facility] Comment on above: Performed By: #### L 500.3400, L501.2450, L501.7300, L100.0100, L501.6900 #### [facility] [address] [place], [address] IG% 0.300 Normal 0.0-0.9 [facility] Comment on above: Result Comment: IG% - Immature Granulocytes (promyelocytes, myelocytes and metamyelocytes) > 1% indicates that a LEFT SHIFT is Present. Performed By: #### L 500.3400, L501.2450, L501.7300, L100.0100, L501.6900 #### [facility] [address] [place], [address] Lymphocytes/100 WBC (Bld) 33.0 % Normal 19-41 [facility] Comment on above: Performed By: #### L 500.3400, L501.2450, L501.7300, L100.0100, L501.6900 #### [facility] [address] [place], [address] MCH (RBC) [Entitic mass] 29.9 pg Normal 27.0-32.0 [facility] Comment on above: Performed By: #### L 500.3400, L501.2450, L501.7300, L100.0100, L501.6900 #### [facility] [address] [place], [address] MCHC (RBC) [Mass/Vol] 34.7 g/dL Normal 32-36 [facility] Comment on above: Performed By: #### L 500.3400, L501.2450, L501.7300, L100.0100, L501.6900 #### [facility] [address] [place], [address] MCV (RBC) [Entitic vol] 86.4 fL Normal 80-94 [facility] Comment on above: Performed By: #### L 500.3400, L501.2450, L501.7300, L100.0100, L501.6900 #### [facility] [address] [place], [address] Monocytes/100 WBC (Bld) 11.4 % High 0-10 [facility] Comment on above: Performed By: #### L 500.3400, L501.2450, L501.7300, L100.0100, L501.6900 #### [facility] [address] [place], [address] Neutrophils/100 WBC (Bld) 49.9 % Normal 47-70 [facility] Comment on above: Performed By: #### L 500.3400, L501.2450, L501.7300, L100.0100, L501.6900 #### [facility] [address] [place], [address] Nucleated RBC (Bld) [#/Vol] 0 10*3/uL Normal 0-5 [facility] Comment on above: Performed By: #### L 500.3400, L501.2450, L501.7300, L100.0100, L501.6900 #### [facility] [address] [place], [address] Platelet mean volume (Bld) [Entitic vol] 11.9 fL Normal 6.2-12.0 [facility] Comment on above: Performed By: #### L 500.3400, L501.2450, L501.7300, L100.0100, L501.6900 #### [facility] [address] [place], [address] Platelets (Bld) [#/Vol] 228 10*3/uL Normal 150-450 [facility] Comment on above: Performed By: #### L 500.3400, L501.2450, L501.7300, L100.0100, L501.6900 #### [facility] [address] [place], [address] RBC (Bld) [#/Vol] 5.21 10*6/uL Normal 4.6-6.2 [facility] Comment on above: Performed By: #### L 500.3400, L501.2450, L501.7300, L100.0100, L501.6900 #### [facility] [address] [place], [address] RDW SD 40.4 fl Normal 35.1-43.9 [facility] Comment on above: Performed By: #### L 500.3400, L501.2450, L501.7300, L100.0100, L501.6900 #### [facility] [address] [place], [address] WBC (Bld) [#/Vol] 9.1 10*3/uL Normal 4.4-11.0 [facility] Comment on above: Performed By: #### L 500.3400, L501.2450, L501.7300, L100.0100, L501.6900 #### [facility] [address] [place], [address] Emergency Department Summary on 03-09-2024 Emergency Department Summary [facility] Records Department [address] [place] [address] Emergency Department Summary 03/09/24 MR#: [id number] Acct: [id number] Name: JAIRO ADKINS . Rep #: [id number] : 1980 44 From: Desmond Mendoza DO PCP: Care Physician,No Primary Status:DEP ER Location: ED HPI History of Present Illness Chief Complaint: Hyperglycemia Informant: patient Narrative Narrative: Patient is a 44-year-old male with a past medical history of insulin-dependent type 2 diabetes. He states he has been taking his medication as directed but despite this his sugars have been running high he has been having increased thirst and increased urination. He was seen in the ER earlier this month for similar event and had to be admitted as he was in [facility]. The patient states he is concerned he is progressing to this once again and as he is concerned he may need admitted secondary to his persistent symptoms comes in for evaluation. He denies any recent steroid use. He states that there has been no sick symptoms such as abdominal pain cough vomiting diarrhea or dysuria [facility] Medical History (Updated 03/09/24 @ 04:[address] Desmond Mendoza DO) Vision problems History of ulcer disease Hearing problem History of blood transfusion Back problem Acute arthritis Seasonal allergies Bipolar disorder Substance abuse Anxiety Depression Smoker Migraines Diabetes TTP (thrombotic thrombocytopenic purpura) Home Medications ???Medication ???Instructions ???Recorded ???Last Taken ???Type insulin glargine-yfgn 100 unit/mL 30 unit (0.3 mL) subcut DAILY #15 02/23/24 Unknown Rx (3 mL) subcutaneous pen mL pen needle, diabetic 29 gauge x #100 ea 02/23/24 Unknown Rx 1/2 dulaglutide 0.75 mg/0.5 mL 0.75 mg (0.5 mL) subcut QWEEK #2 mL 02/28/24 Unknown Rx subcutaneous pen injector flash glucose scanning reader #1 ea 02/28/24 Unknown Rx (FreeStyle Roxi 2 [place]) flash glucose sensor (FreeStyle #3 ea 02/28/24 Unknown Rx Roxi 2 Sensor kit) lisinopril 10 mg tablet 10 mg PO DAILY #30 tabs 02/28/24 Unknown Rx Allergy/AdvReac Type Severity Reaction Status Date / Time adhesive Allergy Rash Verified 03/08/24 23:18 dicyclomine HCl (From Bentyl) Allergy Hives Verified 03/08/24 23:18 fentanyl Allergy Hives Verified 03/08/24 23:18 Latex, Natural Rubber Allergy Rash Verified 03/08/24 23:18 methadone Allergy Other Verified 03/08/24 23:18 prednisone Allergy Rash Verified 03/08/24 23:18 tramadol HCl (From Ultram) Allergy Hives Verified 03/08/24 23:18 aspirin AdvReac Other Verified 03/08/24 23:18 ketorolac tromethamine (From AdvReac Upset Verified 03/08/24 23:18 Toradol) Stomach Family History (Updated 02/28/24 @ 10:48 by Vaishnavi Paz MA) Mother Diabetes Heart disease Cancer Asthma Anxiety Arthritis Surgical History H/O eye surgery Social History (Updated 02/28/24 @ 10:39 by Vaishnavi Paz MA) household members: significant other, children and other details: [facility] housing: house current occupational status: unemployed Smoking Status: Heavy Smoker (>10/day) Tobacco: How many years used: 30 alcohol intake: never substance use type: former substance user and marijuana what type of physical activity do you participate in: walking seatbelt use: always do you feel safe at home: Yes ROS ROS ED Constitutional Constitutional ED: Denies chills or fever(s) Eyes Eyes: Denies change in vision ENT ENT ED: Denies rhinorrhea or sore throat Cardiovascular Cardiovascular: Denies chest pain Respiratory/Chest Respiratory/Chest: Denies cough or dyspnea Gastrointestinal Gastrointestinal: Denies abdominal pain, diarrhea, nausea or vomiting Genitourinary Genitourinary ED: Reports urinary frequency; Denies dysuria Musculoskeletal Musculoskeletal: Denies myalgias Integumentary Denies rash Neurologic Neurologic: Denies headache(s) or weakness Hematologic/Lymphatic Hematologic/Lymphatic: Denies easy bleeding or easy bruising EXAM Physical Exam Const Vital Signs: 03/08/24 23:17 03/09/24 00:04 03/09/24 01:15 Temperature 97 F L Temperature Source Temporal Pulse Rate 96 78 Respiratory Rate 18 20 H Respiratory Effort Normal Non-Labored Respiratory Pattern Normal Blood Pressure 122/69 H 135/72 H Blood Pressure Mean 86 93 Pulse Ox 95 92 Oxygen Delivery Method Room Air Room Air 03/09/24 03:00 03/09/24 03:10 Temperature 97.1 F L Temperature Source Pulse Rate 79 79 Respiratory Rate 16 18 Respiratory Effort Respiratory Pattern Blood Pressure 128/68 H 124/74 H Blood Pressure Mean 88 90 Pulse Ox 99 99 Oxygen Delivery Method Positive well nourished, well developed and o (more content not included)... Normal [facility] Lipaseon 03-09-2024 Lipase [Catalytic activity/Vol] 47 U/L Normal 13-75 [facility] Comment on above: Result Comment: Viviane reilly note: LIPASE revised reference range effective 23. New Lipase methodology. Expected to produce lower values than the previous assay method. NEW Reference Range: 13 - 75 U/L Performed By: #### L 500.3400, L501.2450, L501.7300, L100.0100, L501.6900 #### [facility] [address] [place], [address] Liver Profileon 03-09-2024 Albumin [Mass/Vol] 3.9 g/dL Normal 3.2-5.0 [facility] Comment on above: Performed By: #### L 500.3400, L501.2450, L501.7300, L100.0100, L501.6900 #### [facility] [address] [place], [address] ALK P 176 U/L High 45-117 [facility] Comment on above: Performed By: #### L 500.3400, L501.2450, L501.7300, L100.0100, L501.6900 #### [facility] [address] [place], [address] ALT [Catalytic activity/Vol] 99 U/L High 16-61 [facility] Comment on above: Performed By: #### L 500.3400, L501.2450, L501.7300, L100.0100, L501.6900 #### [facility] [address] [place], [address] AST [Catalytic activity/Vol] 29 U/L Normal 15-37 [facility] Comment on above: Performed By: #### L 500.3400, L501.2450, L501.7300, L100.0100, L501.6900 #### [facility] [address] [place], [address] Bilirubin [Mass/Vol] 0.80 mg/dL Normal 0.20-1.00 [facility] Comment on above: Result Comment: For patients on eltrombopag therapy, use of Dimension [place] TBIL is not recommended. Performed By: #### L 500.3400, L501.2450, L501.7300, L100.0100, L501.6900 #### [facility] [address] [place], [address] Bilirubin.direct [Mass/Vol] 0.24 mg/dL Normal 0.00-0.30 [facility] Comment on above: Performed By: #### L 500.3400, L501.2450, L501.7300, L100.0100, L501.6900 #### [facility] [address] [place], [address] Globulin (S) [Mass/Vol] 4.1 g/dL Normal 2.2-4.2 [facility] Comment on above: Performed By: #### L 500.3400, L501.2450, L501.7300, L100.0100, L501.6900 #### [facility] [address] [place], [address] T PROT 8.0 g/dL Normal 6.4-8.2 [facility] Comment on above: Performed By: #### L 500.3400, L501.2450, L501.7300, L100.0100, L501.6900 #### [facility] [address] [place], [address] Osmolality, Serumon 03-09-20 24 OSMOLALITY,SER 312 mOsm/KG High 275-295 [facility] Comment on above: Performed By: #### L 500.3400, L501.2450, L501.7300, L100.0100, L501.6900 #### [facility] [address] [place], [address] Urinalysis, Completeon 03-09 BACTERIA Normal None Seen [facility] Comment on above: Order Comment: RANGEL CTOR TO SPECIFY Result Comment: PT D ISCHARGED Performed By: #### L 500.3400, L501.2450, L501.7300, L100.0100, L501.6900 #### [facility] [address] [place], [address] BILIRUBIN URINE Normal Negative [facility] Comment on above: Order Comment: RANGEL CTOR TO SPECIFY Result Comment: PT D ISCHARGED Performed By: #### L 500.3400, L501.2450, L501.7300, L100.0100, L501.6900 #### [facility] [address] [place], [address] Clarity (U) Normal Clear [facility] Comment on above: Order Comment: COLLE CTOR TO SPECIFY Result Comment: PT D ISCHARGED Performed By: #### L 500.3400, L501.2450, L501.7300, L100.0100, L501.6900 #### [facility] [address] [place], [address] Color (U) Normal Yellow [facility] Comment on above: Order Comment: COLLE CTOR TO SPECIFY Result Comment: PT D ISCHARGED Performed By: #### L 500.3400, L501.2450, L501.7300, L100.0100, L501.6900 #### [facility] [address] [place], [address] EPI,SQUAMOUS Normal 0-5 [facility] Comment on above: Order Comment: COLLE CTOR TO SPECIFY Result Comment: PT D ISCHARGED Performed By: #### L 500.3400, L501.2450, L501.7300, L100.0100, L501.6900 #### [facility] [address] [place], [address] GLUCOSE, UR Normal Normal [facility] Comment on above: Order Comment: COLLE CTOR TO SPECIFY Result Comment: PT D ISCHARGED Performed By: #### L 500.3400, L501.2450, L501.7300, L100.0100, L501.6900 #### [facility] [address] [place], [address] KETONE UR Normal Negative [facility] Comment on above: Order Comment: COLLE CTOR TO SPECIFY Result Comment: PT D ISCHARGED Performed By: #### L 500.3400, L501.2450, L501.7300, L100.0100, L501.6900 #### [facility] [address] [place], [address] LEUK ESTERASE Normal Negative [facility] Comment on above: Order Comment: COLLE CTOR TO SPECIFY Result Comment: PT D ISCHARGED Performed By: #### L 500.3400, L501.2450, L501.7300, L100.0100, L501.6900 #### [facility] [address] [place], [address] Mucus Ql (Urine sed) Normal [facility] Comment on above: Order Comment: COLLE CTOR TO SPECIFY Result Comment: PT D ISCHARGED Performed By: #### L 500.3400, L501.2450, L501.7300, L100.0100, L501.6900 #### [facility] [address] [place], [address] Nitrite Ql (U) Normal Negative [facility] Comment on above: Order Comment: COLLE CTOR TO SPECIFY Result Comment: PT D ISCHARGED Performed By: #### L 500.3400, L501.2450, L501.7300, L100.0100, L501.6900 #### [facility] [address] [place], [address] OCCULT BLOOD-UR Normal Negative [facility] Comment on above: Order Comment: COLLE CTOR TO SPECIFY Result Comment: PT D ISCHARGED Performed By: #### L 500.3400, L501.2450, L501.7300, L100.0100, L501.6900 #### [facility] [address] [place], [address] pH UR Normal 5.0 - 8.0 [facility] Comment on above: Order Comment: COLLE CTOR TO SPECIFY Result Comment: PT D ISCHARGED Performed By: #### L 500.3400, L501.2450, L501.7300, L100.0100, L501.6900 #### [facility] [address] [place], [address] PROT DIPSTX Normal Negative [facility] Comment on above: Order Comment: RANGEL CTOR TO SPECIFY Result Comment: PT D ISCHARGED Performed By: #### L 500.3400, L501.2450, L501.7300, L100.0100, L501.6900 #### [facility] [address] [place], [address] RBC Normal 0-5 [facility] Comment on above: Order Comment: COLLE CTOR TO SPECIFY Result Comment: PT D ISCHARGED Performed By: #### L 500.3400, L501.2450, L501.7300, L100.0100, L501.6900 #### [facility] [address] [place], [address] SP.GR. DIPSTX Normal 1.002-1.030 [facility] Comment on above: Order Comment: RANGEL CTOR TO SPECIFY Result Comment: PT D ISCHARGED Performed By: #### L 500.3400, L501.2450, L501.7300, L100.0100, L501.6900 #### [facility] [address] [place], [address] UR Preservative Normal [facility] Comment on above: Order Comment: RANGEL CTOR TO SPECIFY Result Comment: PT D ISCHARGED Performed By: #### L 500.3400, L501.2450, L501.7300, L100.0100, L501.6900 #### [facility] [address] [place], [address] UROBILI Normal Normal [facility] Comment on above: Order Comment: RANGEL CTOR TO SPECIFY Result Comment: PT D ISCHARGED Performed By: #### L 500.3400, L501.2450, L501.7300, L100.0100, L501.6900 #### [facility] [address] [place], [address] WBC Normal 0-5 [facility] Comment on above: Order Comment: COLLE CTOR TO SPECIFY Result Comment: PT D ISCHARGED Performed By: #### L 500.3400, L501.2450, L501.7300, L100.0100, L501.6900 #### [facility] [address] [place], [address] Venous Blood Gason 4 Blood Gas Type ROBERTA Normal [facility] Comment on above: Performed By: #### L 9000.0810 ####[facility] [address] [place], [address] CO2 [Moles/Vol] 25 mmol/L Normal 23-33 [facility] Comment on above: Performed By: #### L 9000.0810 ####[facility] [address] [place], [address] HCO3 (Bld) [Moles/Vol] 24 mmol/L Normal 22-26 [facility] Comment on above: Performed By: #### L 9000.0810 ####[facility] [address] [place], [address] O2 Delivery Dev Not entered [facility] Comment on above: Performed By: #### L 9000.0810 ####[facility] [address] [place], [address] SITE Not entered Normal [facility] Comment on above: Performed By: #### L 9000.0810 ####[facility] [address] [place], [address] VBG BE -1 mmol/L Normal -1.0-3.5 [facility] Comment on above: Performed By: #### L 9000.0810 ####[facility] [address] [place], [address] VBG pCO2 37.9 mmHg Low 41-51 [facility] Comment on above: Performed By: #### L 9000.0810 ####[facility] [address] [place], [address] VBG pH 7.40 Normal 7.32-7.42 [facility] Comment on above: Performed By: #### L 9000.0810 ####[facility] [address] [place], [address] VBG PO2 79 mmHg High 25-40 [facility] Comment on above: Performed By: #### L 9000.0810 ####[facility] [address] [place], [address] VBG SO2 96 High 50-70 [facility] Comment on above: Performed By: #### L 9000.0810 ####[facility] [address] [place], [address] Acetone Serumon 03-03-2024 ACETONE SERUM Negative Normal NEG [facility] Comment on above: Performed By: #### L 501.6900, L500.2500, L501.5200, L100.0100 ####[facility] [address] [place], [address] Basic Metabolic Profile (BMP )on 03-03-2024 BUN/CRE 15.1 RATIO Normal 10-20 [facility] Comment on above: Performed By: #### L 501.6900, L500.2500, L501.5200, L100.0100 ####[facility] [address] [place], [address] CA,Total 8.4 mg/dL Low 8.5-10.1 [facility] Comment on above: Performed By: #### L 501.6900, L500.2500, L501.5200, L100.0100 ####[facility] [address] [place], [address] Chloride [Moles/Vol] 94 mmol/L Low 98-107 [facility] Comment on above: Performed By: #### L 501.6900, L500.2500, L501.5200, L100.0100 ####[facility] [address] [place], [address] CO2 [Moles/Vol] 25.0 mmol/L Normal 21.0-32.0 [facility] Comment on above: Performed By: #### L 501.6900, L500.2500, L501.5200, L100.0100 ####[facility] [address] [place], [address] Creatinine [Mass/Vol] 1.19 mg/dL Normal 0.70-1.30 [facility] Comment on above: Result Comment: The validity of the calculated GFR GFRAA in patients over 70 years has not been determined. Clinical correlation is essential. Performed By: #### L 501.6900, L500.2500, L501.5200, L100.0100 ####[facility] [address] [place], [address] ECRCL 105.31 ml/min Normal [facility] Comment on above: Performed By: #### L 501.6900, L500.2500, L501.5200, L100.0100 ####[facility] [address] [place], [address] EST GFR - AA 86 mL/min Normal >60 [facility] Comment on above: Result Comment: Afri can [place] GFR Calc Performed By: #### L 501.6900, L500.2500, L501.5200, L100.0100 ####[facility] [address] [place], [address] GAP 7 Normal 5-15 [facility] Comment on above: Performed By: #### L 501.6900, L500.2500, L501.5200, L100.0100 ####[facility] [address] [place], [address] GFR/1.73 sq M.predicted among non-blacks MDRD (S/P/Bld) [Vol rate/Area] 71 mL/min/{1.73_m2} Normal >60 [facility] Comment on above: Result Comment: Non- GFR Calc Performed By: #### L 501.6900, L500.2500, L501.5200, L100.0100 ####[facility] [address] [place], [address] Glucose [Mass/Vol] 705 mg/dL Invalid Interpretation Code 74-106 [facility] Comment on above: Result Comment: Crit ical Result(s) Called at: 00:13:13 03/03/2024 by: Rosa M Perez. Results read back by same. Glucose result greater than or equal to 200 mg/dL suggests DIABETES MELLITUS per A.D.A. criteria. Performed By: #### L 501.6900, L500.2500, L501.5200, L100.0100 ####[facility] [address] [place], [address] Potassium [Moles/Vol] 4.8 mmol/L Normal 3.5-5.1 [facility] Comment on above: Performed By: #### L 501.6900, L500.2500, L501.5200, L100.0100 ####[facility] [address] [place], [address] Sodium [Moles/Vol] 126 mmol/L Low 136-145 [facility] Comment on above: Performed By: #### L 501.6900, L500.2500, L501.5200, L100.0100 ####[facility] [address] [place], [address] Urea nitrogen [Mass/Vol] 18 mg/dL Normal 7-18 [facility] Comment on above: Performed By: #### L 501.6900, L500.2500, L501.5200, L100.0100 ####[facility] [address] [place], [address] Bedside Glucoseon 03-03-2024 FINGERSTICK GLU 453 mg/dL Invalid Interpretation Code 74-106 [facility] Comment on above: Result Comment: KAYLIE PIERCE OF PATIENT CARE PER NURSING PROTOCOL Performed By: #### L 501.080 ####[facility] [address] [place], [address] Magnesiumon 03-03-2024 Magnesium [Mass/Vol] 1.8 mg/dL Normal 1.6-2.6 [facility] Comment on above: Performed By: #### L 501.6900, L500.2500, L501.5200, L100.0100 ####[facility] [address] [place], [address] Osmolality, Serumon 03-03-20 24 OSMOLALITY,SER 309 mOsm/KG High 275-295 [facility] Comment on above: Performed By: #### L 500.3400, L501.2450, L501.7300, L100.0100, L501.6900 #### [facility] [address] [place], [address] Urinalysis, Completeon 03-03 BACTERIA 0 SEEN Normal None Seen [facility] Comment on above: Order Comment: COLLE CTOR TO SPECIFY Performed By: #### L 500.3400, L501.2450, L501.7300, L100.0100, L501.6900 #### [facility] [address] [place], [address] EPI,SQUAMOUS 0 SEEN Normal 0-5 [facility] Comment on above: Order Comment: COLLE CTOR TO SPECIFY Performed By: #### L 500.3400, L501.2450, L501.7300, L100.0100, L501.6900 #### [facility] [address] [place], [address] Mucus Ql (Urine sed) 0 SEEN Normal [facility] Comment on above: Order Comment: RANGEL CTOR TO SPECIFY Performed By: #### L 500.3400, L501.2450, L501.7300, L100.0100, L501.6900 #### [facility] [address] [place], [address] RBC 0 SEEN Normal 0-5 [facility] Comment on above: Order Comment: RANGEL CTOR TO SPECIFY Performed By: #### L 500.3400, L501.2450, L501.7300, L100.0100, L501.6900 #### [facility] [address] [place], [address] WBC 0 SEEN Normal 0-5 [facility] Comment on above: Order Comment: RANGEL CTOR TO SPECIFY Performed By: #### L 500.3400, L501.2450, L501.7300, L100.0100, L501.6900 #### [facility] [address] [place], [address] Bedside Glucoseon 03-02-2024 FINGERSTICK GLU > 500 Invalid Interpretation Code 74-106 [facility] Comment on above: Result Comment: KAYLIE MITCHENT OF PATIENT CARE PER NURSING PROTOCOL Performed By: #### L 501.080 #### [facility] [address] [place], [address] CBC W/Diff, Automatedon 05- Absolute Lymph 3.22 X10 3/uL Normal 0.83-4.51 [facility] Comment on above: Performed By: #### L 501.6900, L500.2500, L501.5200, L100.0100 #### [facility] [address] [place], [address] Absolute Neut 5.4 X10 3/uL Normal 2.0-7.7 [facility] Comment on above: Performed By: #### L 501.6900, L500.2500, L501.5200, L100.0100 #### [facility] [address] [place], [address] Basophils/100 WBC (Bld) 0.9 % Normal 0-1 [facility] Comment on above: Performed By: #### L 501.6900, L500.2500, L501.5200, L100.0100 #### [facility] [address] [place], [address] Eosinophils/100 WBC (Bld) 5.4 % High 0-5 [facility] Comment on above: Performed By: #### L 501.6900, L500.2500, L501.5200, L100.0100 #### [facility] [address] [place], [address] Erythrocyte distribution width (RBC) [Ratio] 13.0 % Normal 11.6-14.6 [facility] Comment on above: Performed By: #### L 501.6900, L500.2500, L501.5200, L100.0100 #### [facility] [address] [place], [address] Hematocrit (Bld) [Volume fraction] 45.7 % Normal 40-54 [facility] Comment on above: Performed By: #### L 501.6900, L500.2500, L501.5200, L100.0100 #### [facility] [address] [place], [address] Hemoglobin (Bld) [Mass/Vol] 15.7 g/dL Normal 13.0-16.5 [facility] Comment on above: Performed By: #### L 501.6900, L500.2500, L501.5200, L100.0100 #### [facility] [address] [place], [address] IG% 0.200 Normal 0.0-0.9 [facility] Comment on above: Result Comment: IG% - Immature Granulocytes (promyelocytes, myelocytes and metamyelocytes) > 1% indicates that a LEFT SHIFT is Present. Performed By: #### L 501.6900, L500.2500, L501.5200, L100.0100 #### [facility] [address] [place], [address] Lymphocytes/100 WBC (Bld) 32.0 % Normal 19-41 [facility] Comment on above: Performed By: #### L 501.6900, L500.2500, L501.5200, L100.0100 #### [facility] [address] [place], [address] MCH (RBC) [Entitic mass] 30.4 pg Normal 27.0-32.0 [facility] Comment on above: Performed By: #### L 501.6900, L500.2500, L501.5200, L100.0100 #### [facility] [address] [place], [address] MCHC (RBC) [Mass/Vol] 34.4 g/dL Normal 32-36 [facility] Comment on above: Performed By: #### L 501.6900, L500.2500, L501.5200, L100.0100 #### [facility] [address] [place], [address] MCV (RBC) [Entitic vol] 88.4 fL Normal 80-94 [facility] Comment on above: Performed By: #### L 501.6900, L500.2500, L501.5200, L100.0100 #### [facility] [address] [place], [address] Monocytes/100 WBC (Bld) 8.0 % Normal 0-10 [facility] Comment on above: Performed By: #### L 501.6900, L500.2500, L501.5200, L100.0100 #### [facility] [address] [place], [address] Neutrophils/100 WBC (Bld) 53.5 % Normal 47-70 [facility] Comment on above: Performed By: #### L 501.6900, L500.2500, L501.5200, L100.0100 #### [facility] [address] [place], [address] Nucleated RBC (Bld) [#/Vol] 0 10*3/uL Normal 0-5 [facility] Comment on above: Performed By: #### L 501.6900, L500.2500, L501.5200, L100.0100 #### [facility] [address] [place], [address] Platelet mean volume (Bld) [Entitic vol] 10.6 fL Normal 6.2-12.0 [facility] Comment on above: Performed By: #### L 501.6900, L500.2500, L501.5200, L100.0100 #### [facility] [address] [place], [address] Platelets (Bld) [#/Vol] 223 10*3/uL Normal 150-450 [facility] Comment on above: Performed By: #### L 501.6900, L500.2500, L501.5200, L100.0100 #### [facility] [address] [place], [address] RBC (Bld) [#/Vol] 5.17 10*6/uL Normal 4.6-6.2 [facility] Comment on above: Performed By: #### L 501.6900, L500.2500, L501.5200, L100.0100 #### [facility] [address] [place], [address] RDW SD 42.2 fl Normal 35.1-43.9 [facility] Comment on above: Performed By: #### L 501.6900, L500.2500, L501.5200, L100.0100 #### [facility] [address] [place], [address] WBC (Bld) [#/Vol] 10.1 10*3/uL Normal 4.4-11.0 [facility] Comment on above: Performed By: #### L 501.6900, L500.2500, L501.5200, L100.0100 #### [facility] [address] [place], [address] Chest PA and Lateralon 03-02 Chest PA and Lateral [facility] [address] [place] [address] Chest PA and Lateral MR#: [id number] Acct: [id number] Name: JAIRO ADKINS Jr. Rep #: [id number] : 1980 M 44 From: James Dewitt MD PCP: Care Physician,No Primary Status: [facility] ER Study: Chest PA and Lateral Date of Exam: 03/02/24 Exam# [id number] Ordering [place]: [place] [id number] INDICATION: cough EXAMINATION/TECHNIQUE: X-RAY - XR Chest 2 Views COMPARISON: None. FINDINGS: LINES/DEVICES: None. LUNGS: No consolidation, edema or effusion. Mild bilateral peribronchial thickening, best seen on lateral view. No pneumothorax. MEDIASTINUM AND CARDIOVASCULAR STRUCTURES: Cardiac silhouette not enlarged. BONES AND SOFT TISSUES: Unremarkable. RAD/Chest PA and Lateral IMPRESSION: Bilateral peribronchial thickening as can be seen with bronchitis/bronchioliti s. No radiographic evidence of consolidative pneumonia. Electronically Signed: James Dewitt MD at 23:18 EDT , CC: Desmond Mendoza DO; No Primary Care Physician Manager Compensation: Signed Normal [facility] Emergency Department Summary on 03-02-2024 Emergency Department Summary [facility] Medical Records Department [address] [place] [address] Emergency Department Summary 03/02/24 MR#: [id number] Acct: [id number] Name: JAIRO ADKINS Jr. Rep #: [id number] : 1980 44 From: Desmond Mendoza DO PCP: Care Physician,No Primary Status:DEP ER Location: ED HPI History of Present Illness Chief Complaint: Hyperglycemia Informant: patient Narrative Narrative: Patient is a 44-year-old male with past medical history of insulin-dependent diabetes. He was recently seen in the hospital secondary to hyperglycemia and found to be in HHS and was admitted. He states since returning home he has been monitoring his blood sugars more closely and taking his medication as directed. He states in the last 1 to 2 days however he has had return of increased urination and increased thirst and his blood sugars and out is reading high and secondary to this he comes in for repeat evaluation [facility] Medical History (Updated 03/04/24 @ 02:[address] Desmond Mendoza DO) Vision problems History of ulcer disease Hearing problem History of blood transfusion Back problem Acute arthritis Seasonal allergies Bipolar disorder Substance abuse Anxiety Depression Smoker Migraines Diabetes TTP (thrombotic thrombocytopenic purpura) Home Medications ???Medication ???Instructions ???Recorded ???Last Taken ???Type insulin glargine-yfgn 100 unit/mL 30 unit (0.3 mL) subcut DAILY #15 02/23/24 Unknown Rx (3 mL) subcutaneous pen mL pen needle, diabetic 29 gauge x #100 ea 02/23/24 Unknown Rx 1/2 dulaglutide 0.75 mg/0.5 mL 0.75 mg (0.5 mL) subcut QWEEK #2 mL 02/28/24 Unknown Rx subcutaneous pen injector flash glucose scanning reader #1 ea 02/28/24 Unknown Rx (FreeStyle Roxi 2 [place]) flash glucose sensor (FreeStyle #3 ea 02/28/24 Unknown Rx Roxi 2 Sensor kit) lisinopril 10 mg tablet 10 mg PO DAILY #30 tabs 02/28/24 Unknown Rx Allergy/AdvReac Type Severity Reaction Status Date / Time adhesive Allergy Rash Verified 02/28/24 10:33 dicyclomine HCl (From Bentyl) Allergy Hives Verified 02/28/24 10:33 fentanyl Allergy Hives Verified 02/28/24 10:33 Latex, Natural Rubber Allergy Rash Verified 02/28/24 10:33 methadone Allergy Other Verified 02/28/24 10:33 prednisone Allergy Rash Verified 02/28/24 10:33 tramadol HCl (From Ultram) Allergy Hives Verified 02/28/24 10:33 aspirin AdvReac Other Verified 02/28/24 10:33 ketorolac tromethamine (From AdvReac Upset Verified 02/28/24 10:33 Toradol) Stomach Family History (Updated 02/28/24 @ 10:48 by Vaishnavi Paz MA) Mother Diabetes Heart disease Cancer Asthma Anxiety Arthritis Surgical History H/O eye surgery Social History (Updated 02/28/24 @ 10:39 by Vaishnavi Paz MA) household members: significant other, children and other details: [place] housing: house current occupational status: unemployed Smoking Status: Heavy Smoker (>10/day) Tobacco: How many years used: 30 alcohol intake: never substance use type: former substance user and marijuana what type of physical activity do you participate in: walking seatbelt use: always do you feel safe at home: Yes ROS ROS ED Constitutional Constitutional ED: Denies chills or fever(s) ENT ENT ED: Denies sore throat Cardiovascular Cardiovascular: Denies chest pain Respiratory/Chest Respiratory/Chest: Denies cough or dyspnea Gastrointestinal Gastrointestinal: Denies abdominal pain, diarrhea, nausea or vomiting Genitourinary Genitourinary ED: Reports urinary frequency; Denies dysuria or hematuria Musculoskeletal Musculoskeletal: Denies myalgias Integumentary Denies rash Neurologic Neurologic: Denies headache(s), paresthesias or weakness Hematologic/Lymphatic Hematologic/Lymphatic: Denies easy bleeding or easy bruising EXAM Physical Exam Const Vital Signs: 03/03/24 02:58 Temperature 97.2 F L Pulse Rate 90 Respiratory Rate 16 Blood Pressure 138/91 H Blood Pressure Mean 106 Pulse Ox 95 Positive well nourished, well developed and obese General Appearance ED: well developed; Negative for pallor Nutritional Appearance: obese HEENT Reports dry mucous membranes HEENT Narrative: Mucous membranes are dry and tacky No tongue or lip swelling no oral lesions no airway edema or compromise No secondary changes to suggest infection Mouth ED: Yes dry mucous membranes Mouth: dry mucous membranes Eyes PERRL and EOMs intact bilaterally General Eye ED: Negative for scleral icterus Neck supple Neck Narrative: No nuchal rigidity or meningeal signs Chest Wall palpation of chest normal Resp normal respiratory effort and clear to auscultation bilaterally Cardio regular rate and (more content not included)... Normal [facility] Venous Blood Gason 4 Blood Gas Type ROBERTA [facility] Comment on above: Performed By: #### L 500.3400, L501.2450, L501.7300, L100.0100, L501.6900 #### [facility] [address] [place], [address] CO2 [Moles/Vol] 25 mmol/L Normal 23-33 [facility] Comment on above: Performed By: #### L 500.3400, L501.2450, L501.7300, L100.0100, L501.6900 #### [facility] [address] [place], [address] HCO3 (Bld) [Moles/Vol] 24 mmol/L Normal 22-26 [facility] Comment on above: Performed By: #### L 500.3400, L501.2450, L501.7300, L100.0100, L501.6900 #### [facility] [address] [place], [address] O2 Delivery Dev Not entered [facility] Comment on above: Performed By: #### L 500.3400, L501.2450, L501.7300, L100.0100, L501.6900 #### [facility] [address] [place], [address] SITE Not entered Normal [facility] Comment on above: Performed By: #### L 500.3400, L501.2450, L501.7300, L100.0100, L501.6900 #### [facility] [address] [place], [address] VBG BE -1 mmol/L Normal -1.0-3.5 [facility] Comment on above: Performed By: #### L 500.3400, L501.2450, L501.7300, L100.0100, L501.6900 #### [facility] [address] [place], [address] VBG pCO2 40.4 mmHg Low 41-51 [facility] Comment on above: Performed By: #### L 500.3400, L501.2450, L501.7300, L100.0100, L501.6900 #### [facility] [address] [place], [address] VBG pH 7.38 Normal 7.32-7.42 [facility] Comment on above: Performed By: #### L 500.3400, L501.2450, L501.7300, L100.0100, L501.6900 #### [facility] [address] [place], [address] VBG PO2 47 mmHg High 25-40 [facility] Comment on above: Performed By: #### L 500.3400, L501.2450, L501.7300, L100.0100, L501.6900 #### [facility] [address] [place], [address] VBG SO2 82 High 50-70 [facility] Comment on above: Performed By: #### L 500.3400, L501.2450, L501.7300, L100.0100, L501.6900 #### [facility] [address] [place], [address] Internal Medicine Office Vis itoedward 02-28-2024 Internal Medicine Office Visit [facility] [address] [place] [address] [place] [address] OFFICE VISIT Date of Service: 02/28/24 MR#: [id number] Acct: [id number] Name: JAIRO ADKINS Jr. Rep #: [id number] : 1980 Provider: ALBIN Rivera Age/Sex: 44/M [place] [facility] [place]: Signed Intake Vital Signs 02/23/24 09:39 02/28/24 10:41 Height 5 ft 9 in 5 ft 9 in Weight: 279 lb 4 oz BMI 41.2 BP 140/80 H Blood Pressure Location Lt brachial Position Sitting Respiration 16 Pulse 88 Pulse Source Monitor Temp 97.3 F L Temp Source Temporal Pulse Oximetry (%) 97 Oxygen Delivery Method room air Intake Visit Reasons: ACUTE - DIABETIC MEDS Chief Complaint: dm meds Installation And Repair Technician Required: No Accompanied by: Self Is patient in pain?: No Allergies adhesive Allergy (Verified 02/28/24 10:33) Rash dicyclomine HCl (From Bentyl) Allergy (Verified 02/28/24 10:33) Hives fentanyl Allergy (Verified 02/28/24 10:33) Hives Latex, Natural Rubber Allergy (Verified 02/28/24 10:33) Rash methadone Allergy (Verified 02/28/24 10:33) Other prednisone Allergy (Verified 02/28/24 10:33) Rash tramadol HCl (From Ultram) Allergy (Verified 02/28/24 10:33) Hives aspirin Adverse Reaction (Verified 02/28/24 10:33) Other ketorolac tromethamine (From Toradol) Adverse Reaction (Verified 02/28/24 10:33) Upset Stomach Medications ???Medication ???Instructions ???Recorded ???Confirmed ???Type insulin glargine-yfgn 100 unit/mL 30 unit (0.3 mL) subcut DAILY #15 02/23/24 02/28/24 Rx (3 mL) subcutaneous pen mL pen needle, diabetic 29 gauge x #100 ea 02/23/24 02/28/24 Rx 1/2 dulaglutide 0.75 mg/0.5 mL 0.75 mg (0.5 mL) subcut QWEEK #2 mL 02/28/24 02/28/24 Rx subcutaneous pen injector flash glucose scanning reader #1 ea 02/28/24 02/28/24 Rx (FreeStyle Roxi 2 [place]) flash glucose sensor (FreeStyle #3 ea 02/28/24 02/28/24 Rx Roxi 2 Sensor kit) lisinopril 10 mg tablet 10 mg PO DAILY #30 tabs 02/28/24 02/28/24 Rx PFSH Medical History (Updated 02/28/24 @ 10:35 by Vaishnavi Paz MA) Vision problems History of ulcer disease Hearing problem History of blood transfusion Back problem Acute arthritis Seasonal allergies Bipolar disorder Substance abuse Anxiety Depression Smoker Migraines Diabetes TTP (thrombotic thrombocytopenic purpura) Surgical History H/O eye surgery Family History (Updated 02/28/24 @ 10:48 by Vaishnavi Paz MA) Mother Diabetes Heart disease Cancer Asthma Anxiety Arthritis Social History (Updated 02/28/24 @ 10:39 by Vaishnavi Paz MA) household members: significant other, children and other details: [facility] housing: house current occupational status: unemployed Smoking Status: Heavy Smoker (>10/day) Tobacco: How many years used: 30 alcohol intake: never substance use type: former substance user and marijuana what type of physical activity do you participate in: walking seatbelt use: always do you feel safe at home: Yes HPI HPI Chief Complaint: dm meds Details: JAIRO ADKINS, is a 44 M who presents to the office today for hospital f/u. Patient states that his sugars are out of whack. Patient was diagnosed about 2 years ago. He states that he was seeing an coarse wire drawer in [place] but he could not reach him or hear from him after trying to get a hold of him for months without any success or response. Therefore [facility] again not being able to reach his doctor. As a result his sugars increased prompting his recent visit to the ED. prior to this patient states that he was well-controlled on the Trulicity with A1c is typically set less than 7.0 he said his sugars were usually never higher than 170. He did not require other medications besides his Trulicity. Patient does admit that he has gotten off of some of his healthier dietary habits. He does drink soda and does not always eat the best. Since being discharged in the hospital he denies having any type of increase in thirst or urinary frequency. He states that he has noticed some slight change with his distance vision having a little bit of blurriness but states he is fine close up. He has seen an eye doctor within the past 6 months he states. He denies having any chest pains or pressures, shortness of breath, wheezing, fatigue, lethargy, headaches, or dizziness. ROS Const Constitutional: No body ache, chills, excessive sweating, fatigue, fever(s), frequent falls, headache(s), snoring, weakness or change in appetite Eyes Eyes: No blurry vision, change in vision, eye pain or Light sensitivity ENT ENT: No abnormal hearing, ear or mastoid pain, tinnitus, nasal congestion, headache(s), neck pain or sore throat Resp Respiratory: No (more content not included)... Normal [facility] BETA-HYDROXYBUTYRATE, SERUMo n 02-25-2024 Beta hydroxybutyrate [Moles/Vol] 0.14 mmol/L NINF - 0.27 mmol/L [facility] Interpretation and review of laboratory results Normal [facility] This test has not been cleared or approved by the FDA. The laboratory is regulated under CLIA as qualified to perform high-complexity testing. This test is used for clinical purposes. It should not be regarded as investigational or for research. [facility] CALCIUMon 02-25-2024 Calcium [Mass/Vol] 9.9 mg/dL 8.6 - 10. 5 mg/dL [facility] CBC AND ELECTRONIC DIFFon Basophils (Bld) [#/Vol] 0.10 10*3/uL High 0.00 - 0.09 K/uL [facility] Basophils/100 WBC (Bld) 0.9 % [facility] Differential cell count method Nom (Bld) Electronic Differential [facility] Eosinophils (Bld) [#/Vol] 0.67 10*3/uL High 0.00 - 0.48 K/uL [facility] Eosinophils/100 WBC (Bld) 5.8 % [facility] Erythrocyte distribution width (RBC) [Ratio] 12.9 % 10.9 - 14.3 % [facility] Hematocrit (Bld) [Volume fraction] 48.6 % 39.6 - 48.8 % [facility] Hemoglobin (Bld) [Mass/Vol] 17.1 g/dL High 13.4 - 16.8 g/dL [facility] Immature granulocytes (Bld) [#/Vol] 0.04 10*3/uL NINF - 0.07 K/uL [facility] Immature granulocytes/100 WBC (Bld) 0.3 % [facility] Interpretation and review of laboratory results Abnormal [facility] Lymphocytes (Bld) [#/Vol] 3.38 10*3/uL 0.83 - 3.57 K/uL [facility] Lymphocytes/100 WBC (Bld) 29.1 % [facility] MCH (RBC) [Entitic mass] 30.6 pg 26.1 - 33.3 pg [facility] MCHC (RBC) [Mass/Vol] 35.2 g/dL 31.9 - 36.5 g/dL [facility] MCV (RBC) [Entitic vol] 86.9 fL 79.0 - 94.5 fL [facility] Monocytes (Bld) [#/Vol] 0.93 10*3/uL 0.24 - 0.93 K/uL [facility] Monocytes/100 WBC (Bld) 8.0 % [facility] Neutrophils (Bld) [#/Vol] 6.51 10*3/uL High 1.57 - 6.19 K/uL [facility] Nucleated RBC/100 WBC (Bld) [Ratio] 0.0 % [facility] Platelet mean volume (Bld) [Entitic vol] 10.1 fL 8.7 - 12.3 fL [facility] Platelets (Bld) [#/Vol] 267 10*3/uL 146 - 337 K/uL [facility] RBC (Bld) [#/Vol] 5.59 10*6/uL [facility] Segmented neutrophils/100 WBC (Bld) 55.9 % [facility] WBC (Bld) [#/Vol] 11.63 10*3/uL High 3.73 - 10.10 K/uL [facility] CHEM 7 (LYTES,BUN,CREA,GLUC) Ordered By: Pop Frye on 02-25-2024 Anion gap [Moles/Vol] 12 mmol/L 7 - 17 mmol/L [facility] Chloride [Moles/Vol] 94 mmol/L Low 98 - 10 8 mmol/L [facility] CO2 [Moles/Vol] 27 mmol/L 21 - 31 mmol/L [facility] Creatinine [Mass/Vol] 0.86 mg/dL 0.70 - 1.30 mg/dL [facility] eGFR, CKD-EPI, Male - PINF [facility] Comment on above: Reported eGFR is bas ed on the CKD-EPI 2020 equation using creatinine, age, and sex. Glucose [Mass/Vol] 431 mg/dL Critically high 70 - 9 9 mg/dL [facility] Interpretation and review of laboratory results Abnormal [facility] Osmolality Calc [Osmolality] 296 [facility] Potassium [Moles/Vol] 4.1 mmol/L 3.5 - 5.0 mmol/L [facility] Sodium [Moles/Vol] 129 mmol/L Low 135 - 145 mmol/L [facility] Urea nitrogen [Mass/Vol] 18 mg/dL 7 - 25 mg/dL [facility] Urea nitrogen/Creatinine [Mass ratio] 21 mg/mg [facility] EXTRA MICROon 02-25-2024 [facility] GLUCOSE POCon 02-25-2024 Glucose [Mass/Vol] 337 mg/dL High 70 - 99 mg/dL [facility] Interpretation and review of laboratory results Abnormal [facility] POC Sample [facility] Test performed at address of the patient encounter. [facility] Glucose [Mass/Vol] 348 mg/dL High 70 - 99 mg/dL [facility] Interpretation and review of laboratory results Abnormal [facility] POC Sample Type [facility]BL [facility] Test performed at address of the patient encounter. [facility] Glucose [Mass/Vol] 406 mg/dL Critically high 70 - 9 9 mg/dL [facility] Comment on above: Notified RNread back Interpretation and review of laboratory results Abnormal [facility] POC Sample Type [facility] Test performed at address of the patient encounter. [facility] Glucose [Mass/Vol] 438 mg/dL Critically high 70 - 9 9 mg/dL [facility] Comment on above: Notified RNread back Interpretation and review of laboratory results Abnormal [facility] POC Sample Type [facility] Test performed at address of the patient encounter. [facility] Glucose [Mass/Vol] 497 mg/dL Critically high 70 - 9 9 mg/dL [facility] Interpretation and review of laboratory results Abnormal [facility] POC Sample Type [facility] Test performed at address of the patient encounter. [facility] HEMOGLOBIN A1Con 02-25-2024 Average glucose Estimated from glycated hemoglobin (Bld) [Mass/Vol] 209 mg/dL [facility] HbA1c (Bld) [Mass fraction] 8.9 % High 4.7 - 5.6 % [facility] Interpretation and review of laboratory results Abnormal [facility] MAGNESIUMon 02-25-2024 Magnesium [Mass/Vol] 1.7 mg/dL 1.6 - 2 .6 mg/dL [facility] No Panel Informationon 02-24 [facility] Interpretation and review of laboratory results Normal [facility] PHOSPHATE, INORGANICon 02-24 Phosphate [Mass/Vol] 3.8 mg/dL 2.2 - 4 .6 mg/dL [facility] Portable XR Chest Viewson IMPRESSION: Subtle streaky opacities of the left lung base may represent an infectious/inflammatory process. OLOGY EXAM: XR CHEST 1 VIE W PORTABLE, 02/25/2024 06:39 AM COMPARISON: Chest radiograph dated July 23, 2010 CLINICAL INDICATIONS: leukocytosis, borderline hypoxia FINDINGS: (Adequate technique) Implanted Devices: None Thorax: Subtle streaky opacities of the left lung base may represent an infectious/inflammatory process. The lungs are otherwise clear without pleural effusion or pneumothorax. Cardiac silhouette is normal in size and configuration. Posttraumatic deformity from remote left midclavicular fracture. No acute osseous abnormality. RADIOLOGY Desmond Phillips M D - 02/25/2024 EXAM: XR CHEST 1 VIEW PORTABLE, 02/25/2024 06:39 AM COMPARISON: Chest radiograph dated July 23, 2010 CLINICAL INDICATIONS: leukocytosis, borderline hypoxia FINDINGS: (Adequate technique) Implanted Devices: None Thorax: Subtle streaky opacities of the left lung base may represent an infectious/inflammatory process. The lungs are otherwise clear without pleural effusion or pneumothorax. Cardiac silhouette is normal in size and configuration. Posttraumatic deformity from remote left midclavicular fracture. No acute osseous abnormality. IMPRESSION IMPRESSION: Subtle streaky opacities of the left lung base may represent an infectious/inflammatory process. [facility] Radiology Study observation (narrative) [facility] Portable XR Chest ViewsOrder ed By: Desmond Phillips on 02-25-2024 [facility] Work Phone: URINALYSIS REFLEX TO CULTURE PERFORMABLEon 02-25-2024 Appearance (U) Clear Clear [facility] Bacteria LM Ql (Urine sed) ABSENT ABSENT [facility] Color (U) Yellow Yellow [facility] Epithelial cells.squamous LM Ql (Urine sed) 0-2/hpf 0-2/hpf, 3-5/hpf = 1+ [facility] Glucose Test strip (U) [Mass/Vol] >=1000 mg/dL [facility]normal [facility] Interpretation and review of laboratory results Abnormal [facility] Ketones (U) [Mass/Vol] Negative Negative [facility] Leukocyte esterase Test strip Ql (U) Negative Negative [facility] Nitrite Ql (U) Negative Negative [facility] pH (U) 6.0 [pH] 5.0 - 7.0 [facility] Protein (U) [Mass/Vol] Negative Negative [facility] RBC (U) [#/Vol] Negative Negative [facility] RBC LM.HPF (Urine sed) [#/Area] 0-2 [facility] Specific gravity (U) [Rel density] 1.027 1.001 - 1.035 [facility] Urobilinogen (U) [Mass/Vol] 0.2 E.U./dL 0.2 E.U/dL, 1.0 E.U/dL [facility] WBC LM.HPF (Urine sed) [#/Area] 0 - 5 [facility] VENOUS BLOOD GAS PLUS LACTAT Alan 02-25-2024 Base excess Calc (Bld) [Moles/Vol] 3.6 mmol/L High -3.0 - 3.0 mmol/L [facility] CO2 (Bld) [Partial pressure] 41 mm[Hg] [facility] HCO3 (Bld) [Moles/Vol] 28 mmol/L 22 - 29 mmol/L [facility] Interpretation and review of laboratory results Abnormal [facility] Lactate [Moles/Vol] 1.1 mmol/L 0.5 - 1. 6 mmol/L [facility] Oxygen (Bld) [Partial pressure] 54 mm[Hg] mm Hg [facility] Comment on above: Venous pO2 is not re commended for the evaluation of oxygen status, clinical correlation is recommended. Oxygen saturation in Blood 89 % High 70 - 80 % [facility] pH (Bld) 7.44 [pH] High 7.32 - 7.43 [facility] Specimen source Nom (Unsp spec) Venous [facility] CBC W/Diff, Automatedon 05- Absolute Neut Normal 2.0-7.7 [facility] Comment on above: Result Comment: Canc elled via OM: Order cancelled - Patient discharged Performed By: #### L 500.3400, L501.2450, L501.7300, L100.0100, L501.6900 #### [facility] [address] [place], [address] HCT Normal 40-54 [facility] Comment on above: Result Comment: Canc elled via OM: Order cancelled - Patient discharged Performed By: #### L 500.3400, L501.2450, L501.7300, L100.0100, L501.6900 #### [facility] [address] [place], [address] HGB Normal 13.0-16.5 [facility] Comment on above: Result Comment: Canc elled via OM: Order cancelled - Patient discharged Performed By: #### L 500.3400, L501.2450, L501.7300, L100.0100, L501.6900 #### [facility] [address] [place], [address] MCH Normal 27.0-32.0 [facility] Comment on above: Result Comment: Canc elled via OM: Order cancelled - Patient discharged Performed By: #### L 500.3400, L501.2450, L501.7300, L100.0100, L501.6900 #### [facility] [address] [place], [address] MCHC Normal 32-36 [facility] Comment on above: Result Comment: Canc elled via OM: Order cancelled - Patient discharged Performed By: #### L 500.3400, L501.2450, L501.7300, L100.0100, L501.6900 #### [facility] [address] [place], [address] MCV Normal 80-94 [facility] Comment on above: Result Comment: Canc elled via OM: Order cancelled - Patient discharged Performed By: #### L 500.3400, L501.2450, L501.7300, L100.0100, L501.6900 #### [facility] [address] [place], [address] NEUT% Normal 47-70 [facility] Comment on above: Result Comment: Canc elled via OM: Order cancelled - Patient discharged Performed By: #### L 500.3400, L501.2450, L501.7300, L100.0100, L501.6900 #### [facility] [address] [place], [address] PLT Normal 150-450 [facility] Comment on above: Result Comment: Canc elled via OM: Order cancelled - Patient discharged Performed By: #### L 500.3400, L501.2450, L501.7300, L100.0100, L501.6900 #### [facility] [address] [place], [address] RBC Normal 4.6-6.2 [facility] Comment on above: Result Comment: Canc elled via OM: Order cancelled - Patient discharged Performed By: #### L 500.3400, L501.2450, L501.7300, L100.0100, L501.6900 #### [facility] [address] [place], [address] RDW CV Normal 11.6-14.6 [facility] Comment on above: Result Comment: Canc elled via OM: Order cancelled - Patient discharged Performed By: #### L 500.3400, L501.2450, L501.7300, L100.0100, L501.6900 #### [facility] [address] [place], [address] RDW SD Normal 35.1-43.9 [facility] Comment on above: Result Comment: Canc elled via OM: Order cancelled - Patient discharged Performed By: #### L 500.3400, L501.2450, L501.7300, L100.0100, L501.6900 #### [facility] [address] [place], [address] WBC Normal 4.4-11.0 [facility] Comment on above: Result Comment: Canc elled via OM: Order cancelled - Patient discharged Performed By: #### L 500.3400, L501.2450, L501.7300, L100.0100, L501.6900 #### [facility] [address] [place], [address] Absolute lymphocyte countOrd ered By: Desmond Mendoza on 02-23-2024 Lymphocytes Auto (Unsp spec) [#/Vol] 2.61 10*3/uL 0.83-4.51 [facility] Automated lymphocyte count a s percentage of total leukocytesOrdered By: Desmond Mendoza on 02-23-2024 Lymphocytes/100 WBC Auto (Unsp spec) 28.9 % 19-41 [facility] Basic Metabolic Profile (BMP )on 02-23-2024 BUN/CRE 13.9 RATIO Normal 10-20 [facility] Comment on above: Performed By: #### L 500.2500, L100.0100 ####[facility] [address] [place], [address] CA,Total 9.1 mg/dL Normal 8.5-10.1 [facility] Comment on above: Performed By: #### L 500.2500, L100.0100 ####[facility] [address] [place], [address] Chloride [Moles/Vol] 98 mmol/L Normal 98-107 [facility] Comment on above: Performed By: #### L 500.2500, L100.0100 ####[facility] [address] [place], [address] CO2 [Moles/Vol] 26.0 mmol/L Normal 21.0-32.0 [facility] Comment on above: Performed By: #### L 500.2500, L100.0100 ####[facility] [address] [place], [address] Creatinine [Mass/Vol] 1.08 mg/dL Normal 0.70-1.30 [facility] Comment on above: Result Comment: The validity of the calculated GFR GFRAA in patients over 70 years has not been determined. Clinical correlation is essential. Performed By: #### L 500.2500, L100.0100 ####[facility] [address] [place], [address] ECRCL 116.09 ml/min Normal [facility] Comment on above: Performed By: #### L 500.2500, L100.0100 ####[facility] [address] [place], [address] EST GFR - AA 96 mL/min Normal >60 [facility] Comment on above: Result Comment: Afri can Greenlandic GFR Calc Performed By: #### L 500.2500, L100.0100 ####[facility] [address] [place], [address] GAP 7 Normal 5-15 [facility] Comment on above: Performed By: #### L 500.2500, L100.0100 ####[facility] [address] [place], [address] GFR/1.73 sq M.predicted among non-blacks MDRD (S/P/Bld) [Vol rate/Area] 79 mL/min/{1.73_m2} Normal >60 [facility] Comment on above: Result Comment: Non- GFR Calc Performed By: #### L 500.2500, L100.0100 ####[facility] [address] [place], [address] Glucose [Mass/Vol] 676 mg/dL Invalid Interpretation Code 74-106 [facility] Comment on above: Result Comment: Crit ical Result(s) Called at: 05:47:59 02/23/2024 by: Cassie blake. Results read back by same. Glucose result greater than or equal to 200 mg/dL suggests DIABETES MELLITUS per A.D.A. criteria. Performed By: #### L 500.2500, L100.0100 ####[facility] [address] [place], [address] Potassium [Moles/Vol] 4.2 mmol/L Normal 3.5-5.1 [facility] Comment on above: Result Comment: Slig ht Hemolysis, Result may be falsely increased. Performed By: #### L 500.2500, L100.0100 ####[facility] [address] [place], [address] Sodium [Moles/Vol] 131 mmol/L Low 136-145 [facility] Comment on above: Performed By: #### L 500.2500, L100.0100 ####[facility] [address] [place], [address] Urea nitrogen [Mass/Vol] 15 mg/dL Normal 7-18 [facility] Comment on above: Performed By: #### L 500.2500, L100.0100 ####[facility] [address] [place], [address] Basophil percentageOrdered B y: Desmond Mendoza on 02-23-2024 Basophils/100 WBC (Bld) 0.7 % 0-1 [facility] Chloride [Moles/Vol] 98 mmol/L 98-107 [facility] Eosinophils/100 WBC (Bld) 6.3 % 0-5 [facility] Glucose [Mass/Vol] 676 mg/dL 74-106 [facility] Comment on above: Critical Result(s) C alled at: 05:47:59 02/23/2024 by: Cassie blake. Results read back by same.Glucose result greater than or equal to 200 mg/dLsuggests DIABETES MELLITUS per A.D.A. criteria. Hemoglobin (Bld) [Mass/Vol] 16.1 g/dL 13.0-16.5 [facility] Monocytes/100 WBC (Bld) 9.4 % 0-10 [facility] Neutrophils (Bld) [#/Vol] 4.9 10*3/uL 2.0-7.7 [facility] Neutrophils/100 WBC (Bld) 54.4 % 47-70 [facility] Potassium [Moles/Vol] 4.2 mmol/L 3.5-5.1 [facility] Comment on above: Slight Hemolysis, Re sult may be falsely increased. Sodium [Moles/Vol] 131 mmol/L 136-145 [facility] WBC (Bld) [#/Vol] 9.0 10*3/uL 4.4-11.0 [facility] Basophil percentage 0 SEEN /hpf 0-5 [facility] Basophil percentageOrdered B y: Mainor Coleman on 02-23-2024 Cholesterol [Mass/Vol] 194 mg/dL <200 [facility] Comment on above: <200 mg/dL Desirable 200-240 mg/dL Borderline >240 mg/dL High Risk Triglyceride [Mass/Vol] 425 mg/dL <199 [facility] Comment on above: The drugs N-Acetylcy steine and Metamizole may falsely depress this assay. TRIGLYCERIDE IS GREATER THAN 400 mg/dL. LDL RESULT IS INVALID AND WILL NOT BE REPORTED.Serum Triglycerides Reference Interval Normal <150 mg/dL Borderline high 150 - 199 mg/dL High 200 - 499 mg/dL Very High > or = 500 mg/dL Bedside Glucoseon 02-23-2024 FINGERSTICK GLU 258 mg/dL High [address] [place] [address] Comment on above: Result Comment: KAYLIE GEMENT OF PATIENT CARE PER NURSING PROTOCOL Performed By: #### L 501.080 ####[facility] [address] [place], [address] FINGERSTICK GLU 271 mg/dL High [address] [place] [address] Comment on above: Result Comment: KAYLIE GEMENT OF PATIENT CARE PER NURSING PROTOCOL Performed By: #### L 500.3400, L501.2450, L501.7300, L100.0100, L501.6900 #### [facility] [address] [place], [address] FINGERSTICK GLU > 500 Invalid Interpretation Code [address] [place] [address] Comment on above: Result Comment: KAYLIE GEMENT OF PATIENT CARE PER NURSING PROTOCOL Performed By: #### L 501.080 ####[facility] [address] [place], [address] FINGERSTICK GLU 351 mg/dL High [address] [place] [address] Comment on above: Result Comment: KAYLIE GEMENT OF PATIENT CARE PER NURSING PROTOCOL Performed By: #### L 500.3400, L501.2450, L501.7300, L100.0100, L501.6900 #### [facility] [address] [place], [address] FINGERSTICK GLU > 500 Invalid Interpretation Code [address] [place] [address] Comment on above: Result Comment: KAYLIE GEMENT OF PATIENT CARE PER NURSING PROTOCOL Performed By: #### L 500.3400, L501.2450, L501.7300, L100.0100, L501.6900 #### [facility] [address] [place], [address] FINGERSTICK GLU > 500 Invalid Interpretation Code [address] [place] [address] Comment on above: Result Comment: KAYLIE GEMENT OF PATIENT CARE PER NURSING PROTOCOL Performed By: #### L 501.080 ####[facility] [address] [place], [address] Bilirubin Test strip Ql (U)O rdered By: Desmond Mendoza on 02-23-2024 Bilirubin Ql (U) Negative Negative [facility] CBC W/Diff, Automatedon 05-2023 Absolute Lymph 2.61 X10 3/uL Normal 0.83-4.51 [facility] Comment on above: Performed By: #### L 500.2500, L100.0100 ####[facility] [address] [place], [address] Absolute Neut 4.9 X10 3/uL Normal 2.0-7.7 [facility] Comment on above: Performed By: #### L 500.2500, L100.0100 ####[facility] [address] [place], [address] Basophils/100 WBC (Bld) 0.7 % Normal 0-1 [facility] Comment on above: Performed By: #### L 500.2500, L100.0100 ####[facility] [address] [place], [address] Eosinophils/100 WBC (Bld) 6.3 % High 0-5 [facility] Comment on above: Performed By: #### L 500.2500, L100.0100 ####[facility] [address] [place], [address] Erythrocyte distribution width (RBC) [Ratio] 13.0 % Normal 11.6-14.6 [facility] Comment on above: Performed By: #### L 500.2500, L100.0100 ####[facility] [address] [place], [address] Hematocrit (Bld) [Volume fraction] 47.0 % Normal 40-54 [facility] Comment on above: Performed By: #### L 500.2500, L100.0100 ####[facility] [address] [place], [address] Hemoglobin (Bld) [Mass/Vol] 16.1 g/dL Normal 13.0-16.5 [facility] Comment on above: Performed By: #### L 500.2500, L100.0100 ####[facility] [address] [place], [address] IG% 0.300 Normal 0.0-0.9 [facility] Comment on above: Result Comment: IG% - Immature Granulocytes (promyelocytes, myelocytes and metamyelocytes) > 1% indicates that a LEFT SHIFT is Present. Performed By: #### L 500.2500, L100.0100 ####[facility] [address] [place], [address] Lymphocytes/100 WBC (Bld) 28.9 % Normal 19-41 [facility] Comment on above: Performed By: #### L 500.2500, L100.0100 ####[facility] [address] [place], [address] MCH (RBC) [Entitic mass] 30.3 pg Normal 27.0-32.0 [facility] Comment on above: Performed By: #### L 500.2500, L100.0100 ####[facility] [address] [place], [address] MCHC (RBC) [Mass/Vol] 34.3 g/dL Normal 32-36 [facility] Comment on above: Performed By: #### L 500.2500, L100.0100 ####[facility] [address] [place], [address] MCV (RBC) [Entitic vol] 88.5 fL Normal 80-94 [facility] Comment on above: Performed By: #### L 500.2500, L100.0100 ####[facility] [address] [place], [address] Monocytes/100 WBC (Bld) 9.4 % Normal 0-10 [facility] Comment on above: Performed By: #### L 500.2500, L100.0100 ####[facility] [address] [place], [address] Neutrophils/100 WBC (Bld) 54.4 % Normal 47-70 [facility] Comment on above: Performed By: #### L 500.2500, L100.0100 ####[facility] [address] [place], [address] Nucleated RBC (Bld) [#/Vol] 0 10*3/uL Normal 0-5 [facility] Comment on above: Performed By: #### L 500.2500, L100.0100 ####[facility] [address] [place], [address] Platelet mean volume (Bld) [Entitic vol] 10.9 fL Normal 6.2-12.0 [facility] Comment on above: Performed By: #### L 500.2500, L100.0100 ####[facility] [address] [place], [address] Platelets (Bld) [#/Vol] 219 10*3/uL Normal 150-450 [facility] Comment on above: Performed By: #### L 500.2500, L100.0100 ####[facility] [address] [place], [address] RBC (Bld) [#/Vol] 5.31 10*6/uL Normal 4.6-6.2 [facility] Comment on above: Performed By: #### L 500.2500, L100.0100 ####[facility] [address] [place], [address] RDW SD 42.5 fl Normal 35.1-43.9 [facility] Comment on above: Performed By: #### L 500.2500, L100.0100 ####[facility] [address] [place], [address] WBC (Bld) [#/Vol] 9.0 10*3/uL Normal 4.4-11.0 [facility] Comment on above: Performed By: #### L 500.2500, L100.0100 ####[facility] [address] [place], [address] Determination of erythrocyte mean corpuscular volume (MCV)Ordered By: Desmond Mendoza on 02-23-2024 MCV (RBC) [Entitic vol] 88.5 fL 80-94 [facility] Emergency Department Summary on 02-23-2024 Emergency Department Summary [facility] Medical Records Department [address] [place] [address] Emergency Department Summary 02/23/24 MR#: [id number] Acct: [id number] Name: ADKINS,JAIRO CLAUDIA Vásquez. Rep #: [id number] : 1980 44 From: Desmond Mendoza DO PCP: Care Physician,No Primary Status:ADM IN Location: ICU [id number] HPI History of Present Illness Chief Complaint: Hyperglycemia Informant: patient Narrative Narrative: Patient is a 44-year-old male with history of type 2 diabetes on Trulicity. He was seen earlier this evening secondary to polydipsia and polyuria with concern for elevated blood sugar values as he has not been on his medication. At that time he was found to have a blood sugar of 890 and was in HHS. He was admitted to the hospital but stated that he could not stay as he needed personal items and therefore left AGAINST MEDICAL ADVICE. He states that he went home and collected his personal items that he would need for admission and therefore returns at this time for placement. [facility] Medical History Anxiety Bipolar disorder Depression Diabetes Migraines Smoker Substance abuse TTP (thrombotic thrombocytopenic purpura) Home Medications dulaglutide 0.75 mg/0.5 mL subcutaneous pen injector (Trulicity) 0.75 mg subcut QWEEK 01/06/22 [History Last Taken Unknown] hydrocodone-acetaminoph en 5-325mg 5mg-325mg 1 tab PO Q6H PRN pain 3 days #12 tabs 11/30/23 [Rx Last Taken Unknown] Allergy/AdvReac Type Severity Reaction Status Date / Time adhesive Allergy Rash Verified 02/23/24 04:43 dicyclomine HCl [From Bentyl] Allergy Hives Verified 02/23/24 04:43 fentanyl Allergy Hives Verified 02/23/24 04:43 Latex, Natural Rubber Allergy Rash Verified 02/23/24 04:43 methadone Allergy Other Verified 02/23/24 04:43 prednisone Allergy Rash Verified 02/23/24 04:43 tramadol HCl [From Ultram] Allergy Hives Verified 02/23/24 04:43 aspirin AdvReac Other Verified 02/23/24 04:43 ketorolac tromethamine AdvReac Upset Verified 02/23/24 04:43 [From Toradol] Stomach Family History Other Diabetes Surgical History H/O eye surgery Social History household members: spouse Smoking Status: Current every day smoker tobacco type: cigarettes substance use type: former substance user ROS ROS ED Constitutional Constitutional ED: Denies chills or fever(s) ENT ENT ED: Denies sore throat Cardiovascular Cardiovascular: Denies chest pain Respiratory/Chest Respiratory/Chest: Denies cough or dyspnea Gastrointestinal Gastrointestinal: Denies abdominal pain, diarrhea, nausea or vomiting Genitourinary Genitourinary ED: Reports urinary frequency; Denies dysuria or hematuria Musculoskeletal Musculoskeletal: Denies myalgias Integumentary Denies rash Neurologic Neurologic: Denies headache(s) or weakness Hematologic/Lymphatic Hematologic/Lymphatic: Denies easy bleeding or easy bruising EXAM Physical Exam Const Vital Signs: 02/23/24 04:39 02/23/24 05:41 Temperature 98.4 F 98.0 F Temperature Source Oral Pulse Rate 94 89 Respiratory Rate 18 16 Blood Pressure 154/88 H 148/100 H Blood Pressure Mean 110 116 Pulse Ox 95 96 Oxygen Delivery Method Room Air Positive well nourished, well developed and obese General Appearance ED: well developed; Negative for pallor Nutritional Appearance: obese HEENT Reports dry mucous membranes HEENT Narrative: Mucous membranes are dry and tacky without secondary changes to suggest infection Mouth ED: Yes dry mucous membranes Mouth: dry mucous membranes Eyes PERRL and EOMs intact bilaterally General Eye ED: Negative for scleral icterus Neck supple Neck Narrative: No nuchal rigidity or meningeal signs Resp normal respiratory effort and clear to auscultation bilaterally Cardio regular rate and regular rhythm Rate: other Other Details: Radial and carotid pulses are equal and symmetric GI normal to inspection, nondistended, normoactive bowel sounds, non-tender, non-distended and no masses GI Narrative: No voluntary guarding or rigidity or pulsatile mass Auscultation: normoactive bowel sounds Palpation: soft Extremity normal to inspection Neuro oriented x3, CN's II-XII intact bilaterally and no sensory deficits noted Sensorium / Orientation: alert Motor Exam: strength 5/5 throughout Psych mental status grossly normal Skin no rashes or lesions noted and No skin turgor normal Skin Narrative: Skin turgor is increased General Skin Exam: Negative for jaundice or pallor MDM MDM MDM Narrative Medical decision making narrative: (more content not included)... Normal [facility] Emergency Department Summary [facility] Medical Records Department [address] [place] [address] Emergency Department Summary 02/23/24 MR#: [id number] Acct: [id number] Name: JAIRO ADKINS Jr. Rep #: [id number] : 1980 44 From: Desmond Mendoza DO PCP: Care Physician,No Primary Status:ADM IN Location: ICU [id number] [facility] History of Present Illness Chief Complaint: Hyperglycemia Informant: patient Narrative Narrative: Patient is a 44-year-old male with past medical history of type 2 diabetes. He states he has been on Trulicity for this. He states that he ran out of his medication 1 to 2 weeks ago and despite trying to get a hold of his doctor for refill has been unsuccessful. He states in the last few days he has had increased urination and increased thirst and has concerned that his blood sugar is running high and secondary to his comes in for evaluation [facility] Medical History Anxiety Bipolar disorder Depression Diabetes Migraines Smoker Substance abuse TTP (thrombotic thrombocytopenic purpura) Home Medications dulaglutide 0.75 mg/0.5 mL subcutaneous pen injector (Trulicity) 0.75 mg subcut QWEEK 01/06/22 [History Last Taken Unknown] hydrocodone-acetaminoph en 5-325mg 5mg-325mg 1 tab PO Q6H PRN pain 3 days #12 tabs 11/30/23 [Rx Last Taken Unknown] Allergy/AdvReac Type Severity Reaction Status Date / Time adhesive Allergy Rash Verified 02/22/24 22:20 dicyclomine HCl [From Bentyl] Allergy Hives Verified 02/22/24 22:20 fentanyl Allergy Hives Verified 02/22/24 22:20 Latex, Natural Rubber Allergy Rash Verified 02/22/24 22:20 methadone Allergy Other Verified 02/22/24 22:20 prednisone Allergy Rash Verified 02/22/24 22:20 tramadol HCl [From Ultram] Allergy Hives Verified 02/22/24 22:20 aspirin AdvReac Other Verified 02/22/24 22:20 ketorolac tromethamine AdvReac Upset Verified 02/22/24 22:20 [From Toradol] Stomach Family History Other Diabetes Surgical History H/O eye surgery Social History household members: spouse Smoking Status: Current every day smoker tobacco type: cigarettes substance use type: former substance user ROS ROS ED Constitutional Constitutional ED: Denies chills or fever(s) ENT ENT ED: Denies sore throat Cardiovascular Cardiovascular: Denies chest pain Respiratory/Chest Respiratory/Chest: Denies cough or dyspnea Gastrointestinal Gastrointestinal: Denies abdominal pain, diarrhea, nausea or vomiting Genitourinary Genitourinary ED: Reports urinary frequency; Denies dysuria or hematuria Musculoskeletal Musculoskeletal: Denies myalgias Integumentary Denies rash Neurologic Neurologic: Denies headache(s) Hematologic/Lymphatic Hematologic/Lymphatic: Denies easy bleeding or easy bruising EXAM Physical Exam Const Vital Signs: 02/22/24 22:19 02/22/24 22:18 02/23/24 00:51 Temperature 98.0 F Temperature Source Temporal Pulse Rate 108 H 88 Respiratory Rate 18 14 Respiratory Effort Normal Non-Labored Respiratory Pattern Normal Blood Pressure 151/96 H 133/87 H Blood Pressure Mean 114 102 Pulse Ox 100 93 Oxygen Delivery Method Room Air Positive well nourished, well developed and obese General Appearance ED: well developed; Negative for pallor Nutritional Appearance: obese HEENT Reports dry mucous membranes HEENT Narrative: Mucous membranes are dry and tacky No tongue or lip swelling no oral lesions no airway edema or compromise No signs of infection noted in the posterior pharynx Mouth ED: Yes dry mucous membranes Mouth: dry mucous membranes Eyes PERRL and EOMs intact bilaterally General Eye ED: Negative for scleral icterus Neck supple Neck Narrative: No nuchal rigidity or meningeal signs Resp normal respiratory effort and clear to auscultation bilaterally Cardio regular rhythm Rate: tachycardic and other Other Details: Tachycardic rate with regular rhythm GI normal to inspection, nondistended, normoactive bowel sounds, non-tender, non-distended and no masses GI Narrative: No voluntary guarding or rigidity No pulsatile mass or fluid wave Auscultation: normoactive bowel sounds Palpation: soft Extremity normal to inspection Neuro oriented x3 and CN's II-XII intact bilaterally Sensorium / Orientation: alert Motor Exam: strength 5/5 throughout Psych mental status grossly normal Skin no rashes or lesions noted, no wounds and No skin turgor normal Skin Narrative: Skin turgor is increased General Skin Exam: Negative for jaundice or pallor MDM MDM MDM Narrative Medical decision ma (more content not included)... Normal [facility] Erythrocyte distribution wid th ratioOrdered By: Desmond Mendoza on 02-23-2024 Erythrocyte distribution width (RBC) [Ratio] 13.0 % 11.6-14.6 [facility] Erythrocyte distribution wid th standard deviationOrdered By: Desmond Mendoza on 02-23-2024 Erythrocyte distribution width (RBC) [Entitic vol] 42.5 fL 35.1-43.9 [facility] H AND P Exam - Hospital[place] 02-23-2024 H&P Exam - Hospitalist [facility] Medical Records Department [address] [place] [address] H P Exam - Hospitalist 02/23/24 0541 MR#: [id number] Acct: [id number] Name: JAIRO ADKINS Jr. Rep #: [id number] : 1980 44 From: Mainor Payan DO PCP: Care Physician,No Primary Status:ADM IN Location: ICU [id number] HPI - General General Date of Admission: 02/23/24 Date of Service: 02/23/24 Chief Complaint: Severe Hyperglycemia. HPI Narrative JAIRO ADKINS, is a 44 M with a past medical history of tobacco abuse, history of substance abuse, morbid obesity; BMI 41.3 this admission, history of TTP, bipolar disorder, migraine headaches, and d iabetes mellitus type 2; uncontrolled with hyperglycemia who presents to [facility] ER complaining of highly elevated blood glucose. Mr. Adkins reports his symptoms began approximatel y 2 months prior to admission after he ran out of [place] and was not able to obtain a refill. He then noticed persistent elevation of his blood glucose accompanied by polyuria, polydipsia and poly phagia. When he checked his blood sugar earlier today was 890 mg/dL so he decided to come in for fu rther evaluation and treatment. He denies any history of DKA or HONK. He also denies associated fe cyn, chills or vomiting but he does admit to nausea and malaise. It is also important to note that this patient has relatively poor insight into his complex medical condition. In the ER he was noted to have evidence of HHS with blood glucose of 890 mg/dL along with negative serum acetone and an un remarkable VBG and then he left AMA and came back to the ER again this morning and he was then admit yuki to the ICU for ongoing care for stay that is expected to be greater than 2 midnights. [facility] Medical History Anxiety Bipolar disorder Depression Diabetes Migraines Smoker Substance abuse TTP (thrombotic thrombocytopenic purpura) Home Medications dulaglutide 0.75 mg/0.5 mL subcutaneous pen injector ([employer]) 0.75 mg subcut QWEEK 01/06/22 [History Last Taken Unknown] hydrocodone-acetaminoph en 5-325mg 5mg-325mg 1 tab PO Q6H PRN pain 3 days #12 tabs 11/30/23 [Rx Last Taken Unknown] Allergy/AdvReac Type Severity Reaction Status Date / Time adhesive Allergy Rash Verified 02/23/24 04:43 dicyclomine HCl [From Bentyl] Allergy Hives Verified 02/23/24 04:43 fentanyl Allergy Hives Verified 02/23/24 04:43 Latex, Natural Rubber Allergy Rash Verified 02/23/24 04:43 methadone Allergy Other Verified 02/23/24 04:43 prednisone Allergy Rash Verified 02/23/24 04:43 tramadol HCl [From Ultram] Allergy Hives Verified 02/23/24 04:43 aspirin AdvReac Other Verified 02/23/24 04:43 ketorolac tromethamine AdvReac Upset Verified 02/23/24 04:43 [From Toradol] Stomach Family History Other Diabetes Surgical History H/O eye surgery Social History household members: spouse Smoking Status: Current every day smoker tobacco type: cigarettes substance use type: former substance user ROS ROS Narrative Review of systems: General: Patient denies fever or chills HENT: Denies headache, denies stuffy nose, denies sore throat EYES: Denies changes in vision or discharge from eyes. Resp: Denies cough, denies shortness of breath Cardiac: Denies chest pain, palpitations or heart racing. GI: Denies abdominal pain, denies changes in bowel, had some nausea : Patient admits to excessive urination as per HPI. Extremity: Denies swelling Musculoskeletal: Feels somewhat generally weak and unwell but denies arthralgias or myalgias. Neuro: Patient denies headache, paresthesias or focal neurologic weakness. Heme: Denies any bleeding or bruising Skin: Denies rashes Psychiatric: No complaints voiced related to uncontrolled depression or anxiety. Endocrine: Patient admits to polyuria, polydipsia and polyphagia as per HPI. The rest of the 14 point ROS was negative except for positives in HPI. Vital Signs Vital Signs Vital Signs: 02/23/24 04:39 Temperature 98.4 F Temperature Source Oral Pulse Rate 94 Respiratory Rate 18 Blood Pressure 154/88 H Blood Pressure Mean 110 Pulse Ox 95 Oxygen Delivery Method Room Air Weight Weight: 279 lb 1.683 oz Body Mass Index (BMI) 41.2 Physical Exam Const alert, oriented x3 and no apparent distress Constitutional Narrative: Patient is morbidly obese. General Appearance: cooperative HEENT normocephalic, head/scalp atraumatic and hearing grossly normal bilaterally HEENT Narrative: Mucous membranes dry. Eyes PERRL and EOMs intact bilaterally (more content not included)... Normal [facility] Hematocrit Auto (Bld) [Volum e fraction]Ordered By: Desmond Mendoza on 02-23-2024 Hematocrit (Bld) [Volume fraction] 47.0 % 40-54 [facility] Hemoglobin A1con 02-23-2024 HbA1c (Bld) [Mass fraction] 8.2 % High 3.8-5.6 [facility] Comment on above: Result Comment: Norm al < 5.7 % Prediabetic 5.7 - 6.4 % Diabetic >or= 6.5 % Please note range changes. Performed By: #### L 500.3400, L501.2450, L501.7300, L100.0100, L501.6900 #### [facility] [address] [place], [address] HbA1c (Bld) [Mass fraction] 8.1 % High 3.8-5.6 [facility] Comment on above: Result Comment: Norm al < 5.7 % Prediabetic 5.7 - 6.4 % Diabetic >or= 6.5 % Please note range changes. Performed By: #### L 500.3400, L501.2450, L501.7300, L100.0100, L501.6900 #### [facility] [address] [place], [address] Immature granulocytes/100 WB C Auto (Bld)Ordered By: Desmond Mendoza on 02-23-2024 Immature granulocytes/100 WBC (Bld) 0.300 % 0.0-0.9 [facility] Comment on above: IG% - Immature Granu locytes (promyelocytes, myelocytes and metamyelocytes) > 1% indicates that a LEFT SHIFT is Present. Ketones Test strip Ql (U)Ord ered By: Desmond Mendoza on 02-23-2024 Ketones Ql (U) Negative Negative [facility] - Chemistry and C hemistry - challengeOrdered By: Mainor Coleman on 02-23-2024 Cholesterol in HDL [Mass/Vol] 28 mg/dL >40 [facility] Comment on above: The drugs N-Acetylcy steine and Metamizole may falsely depress this assay. Reference Range HDL <40 mg/dL Low HDL Cholesterol HDL >or= 60 mg/dL High HDL Cholesterol Laboratory - Chemistry and C hemistry - challengeOrdered By: Desmond Mendoza on 02-23-2024 CO2 [Moles/Vol] 26.0 mmol/L 21.0-32.0 [facility] Urea nitrogen/Creatinine [Mass ratio] 13.9 mg/mg 10- [facility] - Drug toxicology Ordered By: Mainor Coleman on 02-23-2024 Amphetamines Ql (U) Negative <1000 ng/mL [facility] Benzodiazepines Ql (U) Negative < 200 ng/mL [facility] Cannabinoids Screen Ql (U) Positive < 50 ng/mL [facility] Cocaine Ql (U) Negative < 300 ng/mL [facility] Opiates Ql (U) Negative < 300 ng/mL [facility] - Hematology and Cell countsOrdered By: Desmond Mendoza on 02-23-2024 MCH (RBC) [Entitic mass] 30.3 pg 27.0-32.0 [facility] MCHC (RBC) [Mass/Vol] 34.3 g/dL 32-36 [facility] Nucleated RBC/100 WBC (Bld) [Ratio] 0 % 0-5 [facility] Platelet mean volume (Bld) [Entitic vol] 10.9 fL 6.2-12.0 [facility] Platelets (Bld) [#/Vol] 219 10*3/uL 150-450 [facility] Lipid Profileon 02-23-2024 Cholesterol [Mass/Vol] 194 mg/dL Normal 200 [facility] Comment on above: Result Comment: <200 mg/dL Desirable 200-240 mg/dL Borderline >240 mg/dL High Risk Performed By: #### L 500.3400, L501.2450, L501.7300, L100.0100, L501.6900 #### [facility] [address] [place], [address] Cholesterol in HDL [Mass/Vol] 28 mg/dL Low [facility] Comment on above: Result Comment: The drugs N-Acetylcysteine and Metamizole may falsely depress this assay. Reference Range HDL <40 mg/dL Low HDL Cholesterol HDL >or= 60 mg/dL High HDL Cholesterol Performed By: #### L 500.3400, L501.2450, L501.7300, L100.0100, L501.6900 #### [facility] [address] [place], [address] LDL TNP Normal 0-130 [facility] Comment on above: Performed By: #### L 500.3400, L501.2450, L501.7300, L100.0100, L501.6900 #### [facility] [address] [place], [address] Triglyceride [Mass/Vol] 425 mg/dL High [facility] Comment on above: Result Comment: The drugs N-Acetylcysteine and Metamizole may falsely depress this assay. TRIGLYCERIDE IS GREATER THAN 400 mg/dL. LDL RESULT IS INVALID AND WILL NOT BE REPORTED. Serum Triglycerides Reference Interval Normal <150 mg/dL Borderline high 150 - 199 mg/dL High 200 - 499 mg/dL Very High > or = 500 mg/dL Performed By: #### L 500.3400, L501.2450, L501.7300, L100.0100, L501.6900 #### [facility] [address] [place], [address] VLDL TNP Normal 5-40 [facility] Comment on above: Performed By: #### L 500.3400, L501.2450, L501.7300, L100.0100, L501.6900 #### [facility] [address] [place], [address] Mucus LM Ql (Urine sed)Order ed By: Desmond Mendoza on 02-23-2024 Mucus Ql (Urine sed) 0 SEEN /hpf [facility] Nitrite Test strip Ql (U)Ord ered By: Desmond Mendoza on 02-23-2024 Nitrite Ql (U) Negative Negative [facility] No Panel InformationOrdered By: Mainor Coleman on 02-23-2024 MDMA (Ecstasy) Screen Negative < 500 ng/mL [facility] Urine Barbiturates Screen Negative < 200 ng/mL [facility] Urine Drug Screen Comment [facility] Comment on above: CONFIRMATORY TESTING FOR ALL POSITIVE URINE DRUG SCREENRESULTS WILL ONLY BE SENT OUT UPON PHYSICIAN ORDER. VISTA Urine Drug Screen methods provide only preliminaryanalytical test results. A more specific alternate chemicalmethod must be used in order to obtain a confirmedanalytical result. Gas chromatography/mass spectrometery(GC/MS) is the preferred confirmatory method. Clinicalconsideration and professional judgement should be appliedto any drug of abuse test result, particularly whenpreliminary positive results are used. URINE TCA TESTING MUST BE ORDERED SEPARATELY. USE TESTMNEMONIC: [facility] Urine Methadone Screen Negative < 300 ng/mL [facility] LDL Cholesterol TNP [facility] Comment on above: Test not performed VLDL Cholesterol [facility] Comment on above: Test not performed No Panel InformationOrdered By: Desmond Mendoza on 02-23-2024 Estimated Creatinine Clearance Calc 116.09 ml/min [facility] Estimated GFR (MDRD) Amer 96 mL/min >60 [facility] Comment on above: GFR Calc Estimated GFR (MDRD) Non-Af Amer 79 mL/min >60 [facility] Comment on above: Non- GFR Calc Urine RBC 0 SEEN /hpf 0-5 [facility] Osmolality, Serumon 02-23-20 24 OSMOLALITY,SER 317 mOsm/KG High 275-295 [facility] Comment on above: Performed By: #### L 500.3400, L501.2450, L501.7300, L100.0100, L501.6900 #### [facility] [address] [place], [address] Phosphoruson 02-23-2024 Phosphate [Mass/Vol] 3.9 mg/dL Normal 2.5-4.9 [facility] Comment on above: Performed By: #### L 500.3400, L501.2450, L501.7300, L100.0100, L501.6900 #### [facility] [address] [place], [address] Protein Test strip Ql (U)Ord ered By: Desmond Mendoza on 02-23-2024 Protein Ql (U) Negative Negative [facility] RBC Auto (Bld) [#/Vol]Ordere d By: Desmond Mendoza on 02-23-2024 RBC (Bld) [#/Vol] 5.31 10*6/uL 4.6-6.2 [facility] Serum or plasma calcium branden urement (mass/volume)Ordered By: Desmond Mendoza on 02-23-2024 Calcium [Mass/Vol] 9.1 mg/dL 8.5-10.1 [facility] Serum or plasma creatinine m easurement (mass/volume)Ordered By: Desmond Mendoza on 02-23-2024 Creatinine [Mass/Vol] 1.08 mg/dL 0.70-1.30 [facility] Comment on above: The validity of the calculated GFR & GFRAA in patients over 70 years has not been determined. Clinical correlation is essential. Serum or plasma thyroid stim ulating hormone (TSH) measurement (units/volume)Ordered By: Mainor Coleman on 02-23-2024 TSH Qn 0.88 uIU/mL 0.358-3.74 [facility] Serum or plasma urea nitroge n measurement (mass/volume)Ordered By: Desmond Mendoza on 02-23-2024 Urea nitrogen [Mass/Vol] 15 mg/dL 7-18 [facility] Squamous epithelial cells de tection in urine sediment by light microscopyOrdered By: Desmond Mendoza on 02-23-2024 Epithelial cells.squamous LM Ql (Urine sed) 0 SEEN /hpf 0-5 [facility] Thin prep Papanicolaou smear with manual screeningOrdered By: Karli Reyes on 02-23-2024 Thin prep Papanicolaou smear with manual screening 258 mg/dL - [facility] Comment on above: MANAGEMENT OF PATIEN T CARE PER NURSING PROTOCOL Thin prep Papanicolaou smear with manual screeningOrdered By: Desmond Mendoza on 02-23-2024 Thin prep Papanicolaou smear with manual screening > 500 mg/dL 74-106 [facility] Comment on above: MANAGEMENT OF PATIEN T CARE PER NURSING PROTOCOL Thin prep Papanicolaou smear with manual screening 7 5-15 [facility] Thin prep Papanicolaou smear with manual screeningOrdered By: Mainor Coleman on 02-23-2024 Thin prep Papanicolaou smear with manual screening > 500 mg/dL -106 [facility] Comment on above: MANAGEMENT OF PATIEN T CARE PER NURSING PROTOCOL Thyroid Stim Hormone (TSH)on 02-23-2024 TSH 0.88 uIU/mL Normal 0.358-3.74 [facility] Comment on above: Performed By: #### L 500.3400, L501.2450, L501.7300, L100.0100, L501.6900 #### [facility] [address] [place], [address] Urinalysis, Completeon 02-22 BACTERIA 0 SEEN Normal None Seen [facility] Comment on above: Order Comment: RANGEL CTOR TO SPECIFY Performed By: #### L 500.3400, L501.2450, L501.7300, L100.0100, L501.6900 #### [facility] [address] [place], [address] EPI,SQUAMOUS 0 SEEN Normal 0-5 [facility] Comment on above: Order Comment: RANGEL CTOR TO SPECIFY Performed By: #### L 500.3400, L501.2450, L501.7300, L100.0100, L501.6900 #### [facility] [address] [place], [address] Mucus Ql (Urine sed) 0 SEEN Normal [facility] Comment on above: Order Comment: COLLE CTOR TO SPECIFY Performed By: #### L 500.3400, L501.2450, L501.7300, L100.0100, L501.6900 #### [facility] [address] [place], [address] RBC 0 SEEN Normal 0-5 [facility] Comment on above: Order Comment: COLLE CTOR TO SPECIFY Performed By: #### L 500.3400, L501.2450, L501.7300, L100.0100, L501.6900 #### [facility] [address] [place], [address] WBC 0 SEEN Normal 0-5 [facility] Comment on above: Order Comment: COLLE CTOR TO SPECIFY Performed By: #### L 500.3400, L501.2450, L501.7300, L100.0100, L501.6900 #### [facility] [address] [place], [address] Urine Drug Screen (VISTA)on 02-23-2024 AMPHETAMINES Negative Normal <1000 ng/mL [facility] Comment on above: Performed By: #### L 500.3400, L501.2450, L501.7300, L100.0100, L501.6900 #### [facility] [address] [place], [address] BARBITIURATES Negative Normal < 200 ng/mL [facility] Comment on above: Performed By: #### L 500.3400, L501.2450, L501.7300, L100.0100, L501.6900 #### [facility] [address] [place], [address] BENZODIAZIPINE Negative Normal < 200 ng/mL [facility] [facility] Comment on above: Performed By: #### L 500.3400, L501.2450, L501.7300, L100.0100, L501.6900 #### [facility] [address] [place], [address] COCAINE Negative Normal < 300 ng/mL [facility] Comment on above: Performed By: #### L 500.3400, L501.2450, L501.7300, L100.0100, L501.6900 #### [facility] [address] [place], [place], [facility] ECSTACY Negative Normal < 500 ng/mL [facility] Comment on above: Performed By: #### L 500.3400, L501.2450, L501.7300, L100.0100, L501.6900 #### [facility] [address] [place], [place], [facility] METHADONE Negative Normal < 300 ng/mL [facility] Comment on above: Performed By: #### L 500.3400, L501.2450, L501.7300, L100.0100, L501.6900 #### [facility] [address] [place], [place], [facility] OPIATES Negative Normal < 300 ng/mL [facility] Comment on above: Performed By: #### L 500.3400, L501.2450, L501.7300, L100.0100, L501.6900 #### [facility] [address] [place], [place], [facility] PCP Negative Normal < 25 ng/mL [facility] Comment on above: Performed By: #### L 500.3400, L501.2450, L501.7300, L100.0100, L501.6900 #### [facility] [address] [place], [place], [facility] THC Positive Abnormal < 50 ng/mL [facility] Comment on above: Performed By: #### L 500.3400, L501.2450, L501.7300, L100.0100, L501.6900 #### [facility] [address] [place], [address] VISTA UDS PH 6 Normal [facility] Comment on above: Performed By: #### L 500.3400, L501.2450, L501.7300, L100.0100, L501.6900 #### [facility] [address] [place], [address] Urine blood detectionOrdered By: Desmond Mendoza on 02-23-2024 RBC Ql (U) Negative Negative [facility] Urine clarityOrdered By: Lisandro Mendoza on 02-23-2024 Clarity (U) Clear Clear [facility] Urine color determinationOrd ered By: Desmond Mendoza on 02-23-2024 Color (U) Straw Yellow [facility] Urine glucose detectionOrder ed By: Desmond Mendoza on 02-23-2024 Glucose Ql (U) 1000 mg/dl Normal [facility] Urine leukocyte esterase det ection by dipstickOrdered By: Desmond Mendoza on 02-23-2024 Leukocyte esterase Test strip Ql (U) Negative Negative [facility] Urine pHOrdered By: Desmond edward on 02-23-2024 pH (U) 7.0 [pH] 5.0 - 8.0 [facility] Urine phencyclidine (PCP) de tectionOrdered By: Mainor Coleman on 02-23-2024 Phencyclidine Ql (U) Negative < 25 ng/mL [facility] Urine sediment bacteria coun t by microscopy (number/high power field)Ordered By: Desmond Mendoza on 02-23-2024 Bacteria LM.HPF (Urine sed) [#/Area] 0 /[HPF] None Seen [facility] Urine specific gravity measu rementOrdered By: Desmond Mendoza on 02-23-2024 Specific gravity (U) [Rel density] 1.010 1.002-1.030 [facility] Urine urobilinogen measureme ntOrdered By: Desmond Mendoza on 02-23-2024 Urobilinogen Ql (U) Normal mg/dl Normal [facility] Whole blood hemoglobin A1c/t otal hemoglobin ratio (mass fraction)Ordered By: Mainor Coleman on 02-23-2024 HbA1c (Bld) [Mass fraction] 8.2 % 3.8-5.6 [facility] Comment on above: Normal < 5.7 % Predi abetic 5.7 - 6.4 % Diabetic >or= 6.5 % Please note range changes. Absolute lymphocyte countOrd ered By: Desmond Mendoza on 02-22-2024 Lymphocytes Auto (Unsp spec) [#/Vol] 2.57 10*3/uL 0.83-4.51 [facility] Acetone Serumon 02-22-2024 ACETONE SERUM Negative Normal NEG [facility] Comment on above: Performed By: #### L 500.3400, L501.2450, L501.7300, L100.0100, L501.6900 #### [facility] [address] [place], [address] Automated lymphocyte count a s percentage of total leukocytesOrdered By: Desmond Mendoza on 02-22-2024 Lymphocytes/100 WBC Auto (Unsp spec) 29.2 % 19-41 [facility] Base excessOrdered By: Bryce Mendoza on 02-22-2024 Base excess Calc (BldV) [Moles/Vol] 2 mmol/L -1.0-3.5 [facility] Basic Metabolic Profile (BMP )on 02-22-2024 BUN/CRE 14.3 RATIO Normal 10-20 [facility] Comment on above: Performed By: #### L 500.3400, L501.2450, L501.7300, L100.0100, L501.6900 #### [facility] [address] [place], [address] CA,Total 9.3 mg/dL Normal 8.5-10.1 [facility] Comment on above: Performed By: #### L 500.3400, L501.2450, L501.7300, L100.0100, L501.6900 #### [facility] [address] [place], [address] Chloride [Moles/Vol] 92 mmol/L Low 98-107 [facility] Comment on above: Performed By: #### L 500.3400, L501.2450, L501.7300, L100.0100, L501.6900 #### [facility] [address] [place], [address] CO2 [Moles/Vol] 26.0 mmol/L Normal 21.0-32.0 [facility] Comment on above: Performed By: #### L 500.3400, L501.2450, L501.7300, L100.0100, L501.6900 #### [facility] [address] [place], [address] Creatinine [Mass/Vol] 1.26 mg/dL Normal 0.70-1.30 [facility] Comment on above: Result Comment: The validity of the calculated GFR GFRAA in patients over 70 years has not been determined. Clinical correlation is essential. Performed By: #### L 500.3400, L501.2450, L501.7300, L100.0100, L501.6900 #### [facility] [address] [place], [address] ECRCL 99.68 ml/min Normal [facility] Comment on above: Performed By: #### L 500.3400, L501.2450, L501.7300, L100.0100, L501.6900 #### [facility] [address] [place], [address] EST GFR - AA 80 mL/min Normal >60 [facility] Comment on above: Result Comment: Afri can Green[place]ic GFR Calc Performed By: #### L 500.3400, L501.2450, L501.7300, L100.0100, L501.6900 #### [facility] [address] [place], [address] GAP 9 Normal 5-15 [facility] Comment on above: Performed By: #### L 500.3400, L501.2450, L501.7300, L100.0100, L501.6900 #### [facility] [address] [place], [address] GFR/1.73 sq M.predicted among non-blacks MDRD (S/P/Bld) [Vol rate/Area] 66 mL/min/{1.73_m2} Normal >60 [facility] Comment on above: Result Comment: Non- GFR Calc Performed By: #### L 500.3400, L501.2450, L501.7300, L100.0100, L501.6900 #### [facility] [address] [place], [address] Glucose [Mass/Vol] 890 mg/dL Invalid Interpretation Code 74-106 [facility] Comment on above: Result Comment: Crit ical Result(s) Called at: 23:31:33 02/22/2024 by: Cassie Joseph to [email or web address]. Results read back by same. Glucose result greater than or equal to 200 mg/dL suggests DIABETES MELLITUS per A.D.A. criteria. Performed By: #### L 500.3400, L501.2450, L501.7300, L100.0100, L501.6900 #### [facility] [address] [place], [address] Potassium [Moles/Vol] 4.3 mmol/L Normal 3.5-5.1 [facility] Comment on above: Performed By: #### L 500.3400, L501.2450, L501.7300, L100.0100, L501.6900 #### [facility] [address] [place], [address] Sodium [Moles/Vol] 127 mmol/L Low 136-145 [facility] Comment on above: Performed By: #### L 500.3400, L501.2450, L501.7300, L100.0100, L501.6900 #### [facility] [address] [place], [address] Urea nitrogen [Mass/Vol] 18 mg/dL Normal 7-18 [facility] Comment on above: Performed By: #### L 500.3400, L501.2450, L501.7300, L100.0100, L501.6900 #### [facility] [address] [place], [address] Basophil percentageOrdered B y: Mainor Jared on 02-22-2024 Basophil percentage 3.9 mg/dL 2.5-4.9 [facility] Basophil percentageOrdered B y: Desmond Kelly on 02-22-2024 Basophils/100 WBC (Bld) 0.9 % 0-1 [facility] Chloride [Moles/Vol] 92 mmol/L 98-107 [facility] Eosinophils/100 WBC (Bld) 4.4 % 0-5 [facility] Glucose [Mass/Vol] 890 mg/dL 74-106 [facility] Comment on above: Critical Result(s) C alled at: 23:31:33 02/22/2024 by: Cassie Joseph to [email or web address]. Results read back by same.Glucose result greater than or equal to 200 mg/dLsuggests DIABETES MELLITUS per A.D.A. criteria. Hemoglobin (Bld) [Mass/Vol] 16.1 g/dL 13.0-16.5 [facility] Lactate [Moles/Vol] 1.9 mmol/L 0.4-2.0 [facility] Monocytes/100 WBC (Bld) 9.6 % 0-10 [facility] Neutrophils (Bld) [#/Vol] 4.9 10*3/uL 2.0-7.7 [facility] Neutrophils/100 WBC (Bld) 55.6 % 47-70 [facility] Potassium [Moles/Vol] 4.3 mmol/L 3.5-5.1 [facility] Sodium [Moles/Vol] 127 mmol/L 136-145 [facility] WBC (Bld) [#/Vol] 8.8 10*3/uL 4.4-11.0 [facility] Bedside Glucoseon 02-22-2024 FINGERSTICK GLU > 500 Invalid Interpretation Code 74-106 [facility] Comment on above: Result Comment: Dr Gay mcintyre Followed MANAGEMENT OF PATIENT CARE PER NURSING PROTOCOL Performed By: #### L 501.080 ####[facility] [address] [place], [address] CBC W/Diff, Automatedon Absolute Lymph 2.57 X10 3/uL Normal 0.83-4.51 [facility] Comment on above: Performed By: #### L 500.3400, L501.2450, L501.7300, L100.0100, L501.6900 #### [facility] [address] [place], [address] Absolute Neut 4.9 X10 3/uL Normal 2.0-7.7 [facility] Comment on above: Performed By: #### L 500.3400, L501.2450, L501.7300, L100.0100, L501.6900 #### [facility] [address] [place], [address] Basophils/100 WBC (Bld) 0.9 % Normal 0-1 [facility] Comment on above: Performed By: #### L 500.3400, L501.2450, L501.7300, L100.0100, L501.6900 #### [facility] [address] [place], [address] Eosinophils/100 WBC (Bld) 4.4 % Normal 0-5 [facility] Comment on above: Performed By: #### L 500.3400, L501.2450, L501.7300, L100.0100, L501.6900 #### [facility] [address] [place], [address] Erythrocyte distribution width (RBC) [Ratio] 13.2 % Normal 11.6-14.6 [facility] Comment on above: Performed By: #### L 500.3400, L501.2450, L501.7300, L100.0100, L501.6900 #### [facility] [address] [place], [address] Hematocrit (Bld) [Volume fraction] 48.5 % Normal 40-54 [facility] Comment on above: Performed By: #### L 500.3400, L501.2450, L501.7300, L100.0100, L501.6900 #### [facility] [address] [place], [address] Hemoglobin (Bld) [Mass/Vol] 16.1 g/dL Normal 13.0-16.5 [facility] Comment on above: Performed By: #### L 500.3400, L501.2450, L501.7300, L100.0100, L501.6900 #### [facility] [address] [place], [address] IG% 0.300 Normal 0.0-0.9 [facility] Comment on above: Result Comment: IG% - Immature Granulocytes (promyelocytes, myelocytes and metamyelocytes) > 1% indicates that a LEFT SHIFT is Present. Performed By: #### L 500.3400, L501.2450, L501.7300, L100.0100, L501.6900 #### [facility] [address] [place], [address] Lymphocytes/100 WBC (Bld) 29.2 % Normal 19-41 [facility] Comment on above: Performed By: #### L 500.3400, L501.2450, L501.7300, L100.0100, L501.6900 #### [facility] [address] [place], [address] MCH (RBC) [Entitic mass] 30.1 pg Normal 27.0-32.0 [facility] Comment on above: Performed By: #### L 500.3400, L501.2450, L501.7300, L100.0100, L501.6900 #### [facility] [address] [place], [address] MCHC (RBC) [Mass/Vol] 33.2 g/dL Normal 32-36 [facility] Comment on above: Performed By: #### L 500.3400, L501.2450, L501.7300, L100.0100, L501.6900 #### [facility] [address] [place], [address] MCV (RBC) [Entitic vol] 90.7 fL Normal 80-94 [facility] Comment on above: Performed By: #### L 500.3400, L501.2450, L501.7300, L100.0100, L501.6900 #### [facility] [address] [place], [address] Monocytes/100 WBC (Bld) 9.6 % Normal 0-10 [facility] Comment on above: Performed By: #### L 500.3400, L501.2450, L501.7300, L100.0100, L501.6900 #### [facility] [address] [place], [address] Neutrophils/100 WBC (Bld) 55.6 % Normal 47-70 [facility] Comment on above: Performed By: #### L 500.3400, L501.2450, L501.7300, L100.0100, L501.6900 #### [facility] [address] [place], [address] Nucleated RBC (Bld) [#/Vol] 0 10*3/uL Normal 0-5 [facility] Comment on above: Performed By: #### L 500.3400, L501.2450, L501.7300, L100.0100, L501.6900 #### [facility] [address] [place], [address] Platelet mean volume (Bld) [Entitic vol] 10.7 fL Normal 6.2-12.0 [facility] Comment on above: Performed By: #### L 500.3400, L501.2450, L501.7300, L100.0100, L501.6900 #### [facility] [address] [place], [address] Platelets (Bld) [#/Vol] 230 10*3/uL Normal 150-450 [facility] Comment on above: Performed By: #### L 500.3400, L501.2450, L501.7300, L100.0100, L501.6900 #### [facility] [address] [place], [address] RBC (Bld) [#/Vol] 5.35 10*6/uL Normal 4.6-6.2 [facility] Comment on above: Performed By: #### L 500.3400, L501.2450, L501.7300, L100.0100, L501.6900 #### [facility] [address] [place], [address] RDW SD 44.2 fl High 35.1-43.9 [facility] Comment on above: Performed By: #### L 500.3400, L501.2450, L501.7300, L100.0100, L501.6900 #### [facility] [address] [place], [address] WBC (Bld) [#/Vol] 8.8 10*3/uL Normal 4.4-11.0 [facility] Comment on above: Performed By: #### L 500.3400, L501.2450, L501.7300, L100.0100, L501.6900 #### [facility] [address] [place], [address] CO2 (BldV) [Moles/Vol]Ordere d By: Desmond Mendoza on 02-22-2024 CO2 [Moles/Vol] 29 mmol/L 23-33 [facility] Determination of erythrocyte mean corpuscular volume (MCV)Ordered By: Desmond Mendoza on 02-22-2024 MCV (RBC) [Entitic vol] 90.7 fL 80-94 [facility] Erythrocyte distribution wid th ratioOrdered By: Desmond Mendoza on 02-22-2024 Erythrocyte distribution width (RBC) [Ratio] 13.2 % 11.6-14.6 [facility] Erythrocyte distribution wid th standard deviationOrdered By: Desmond Mendoza on 02-22-2024 Erythrocyte distribution width (RBC) [Entitic vol] 44.2 fL 35.1-43.9 [facility] Hematocrit Auto (Bld) [Volum e fraction]Ordered By: Desmond Mendoza on 02-22-2024 Hematocrit (Bld) [Volume fraction] 48.5 % 40-54 [facility] Immature granulocytes/100 WB C Auto (Bld)Ordered By: Desmond Mendoza on 02-22-2024 Immature granulocytes/100 WBC (Bld) 0.300 % 0.0-0.9 [facility] Comment on above: IG% - Immature Granu locytes (promyelocytes, myelocytes and metamyelocytes) > 1% indicates that a LEFT SHIFT is Present. Laboratory - Chemistry and C hemistry - challengeOrdered By: Desmond Mendoza on 02-22-2024 HCO3 (Bld) [Moles/Vol] 28 mmol/L 22-26 [facility] CO2 [Moles/Vol] 26.0 mmol/L 21.0-32.0 [facility] Magnesium [Mass/Vol] 2.0 mg/dL 1.6-2.6 [facility] Urea nitrogen/Creatinine [Mass ratio] 14.3 mg/mg 10-20 [facility] - Hematology and Cell countsOrdered By: Desmond Mendoza on 02-22-2024 MCH (RBC) [Entitic mass] 30.1 pg 27.0-32.0 [facility] MCHC (RBC) [Mass/Vol] 33.2 g/dL 32-36 [facility] Nucleated RBC/100 WBC (Bld) [Ratio] 0 % 0-5 [facility] Platelet mean volume (Bld) [Entitic vol] 10.7 fL 6.2-12.0 [facility] Platelets (Bld) [#/Vol] 230 10*3/uL 150-450 [facility] Lactic Acidon 02-22-2024 Lactate [Moles/Vol] 1.9 mmol/L Normal 0.4-1.9 [facility] Comment on above: Order Comment: Y Performed By: #### L 500.3400, L501.2450, L501.7300, L100.0100, L501.6900 #### [facility] [address] [place], [place], [address] Magnesiumon 02-22-2024 Magnesium [Mass/Vol] 2.0 mg/dL Normal 1.6-2.6 [facility] Comment on above: Performed By: #### L 500.3400, L501.2450, L501.7300, L100.0100, L501.6900 #### [facility] [address] [place], [place], [address] No Panel InformationOrdered By: Desmond Mendoza on 02-22-2024 Blood Gas Sample Site Not entered [facility] Blood Gas Specimen Type ROBERTA [facility] Oxygen Delivery Device Room Air [facility] Estimated Creatinine Clearance Calc 99.68 ml/min [facility] Estimated GFR (MDRD) Amer 80 mL/min >60 [facility] Comment on above: GFR Calc Estimated GFR (MDRD) Non-Af Amer 66 mL/min >60 [facility] Comment on above: Non- GFR Calc PCO2 venousOrdered By: Bryce Mendoza on 02-22-2024 CO2 (BldV) [Partial pressure] 48.8 mm[Hg] 41-51 [facility] PO2 venousOrdered By: Desmond Mendoza on 02-22-2024 Oxygen (BldV) [Partial pressure] 22 mm[Hg] 25-40 [facility] RBC Auto (Bld) [#/Vol]Ordere d By: Desmond Mendoza on 02-22-2024 RBC (Bld) [#/Vol] 5.35 10*6/uL 4.6-6.2 [facility] Serum or plasma acetone branden urement (mass/volume)Ordered By: Desmond Mendoza on 02-22-2024 Acetone [Mass/Vol] Negative NEG [facility] Serum or plasma calcium branden urement (mass/volume)Ordered By: Desmond Mendoza on 02-22-2024 Calcium [Mass/Vol] 9.3 mg/dL 8.5-10.1 [facility] Serum or plasma creatinine m easurement (mass/volume)Ordered By: Desmond Mendoza on 02-22-2024 Creatinine [Mass/Vol] 1.26 mg/dL 0.70-1.30 [facility] Comment on above: The validity of the calculated GFR & GFRAA in patients over 70 years has not been determined. Clinical correlation is essential. Serum or plasma urea nitroge n measurement (mass/volume)Ordered By: Desmond Mendoza on 02-22-2024 Urea nitrogen [Mass/Vol] 18 mg/dL 7-18 [facility] Thin prep Papanicolaou smear with manual screeningOrdered By: Desmond Mendoza on 02-22-2024 Thin prep Papanicolaou smear with manual screening 9 5-15 [facility] Thin prep Papanicolaou smear with manual screening 317 mOsm/KG 275-295 [facility] Thin prep Papanicolaou smear with manual screening > 500 mg/dL 74-106 [facility] Comment on above: Dr Huma VANCE OF PATIENT CARE PER NURSING PROTOCOL Venous Blood Gason 4 Blood Gas Type ROBERTA Normal [facility] Comment on above: Performed By: #### L 500.3400, L501.2450, L501.7300, L100.0100, L501.6900 #### [facility] [address] [place], [address] CO2 [Moles/Vol] 29 mmol/L Normal 23-33 [facility] Comment on above: Performed By: #### L 500.3400, L501.2450, L501.7300, L100.0100, L501.6900 #### [facility] [address] [place], [address] HCO3 (Bld) [Moles/Vol] 28 mmol/L High 22-26 [facility] Comment on above: Performed By: #### L 500.3400, L501.2450, L501.7300, L100.0100, L501.6900 #### [facility] [address] [place], [address] O2 Delivery Dev Room Air Normal [facility] Comment on above: Performed By: #### L 500.3400, L501.2450, L501.7300, L100.0100, L501.6900 #### [facility] [address] [place], [address] SITE Not entered Normal [facility] Comment on above: Performed By: #### L 500.3400, L501.2450, L501.7300, L100.0100, L501.6900 #### [facility] [address] [place], [address] VBG BE 2 mmol/L Normal -1.0-3.5 [facility] Comment on above: Performed By: #### L 500.3400, L501.2450, L501.7300, L100.0100, L501.6900 #### [facility] [address] [place], [address] VBG pCO2 48.8 mmHg Normal 41-51 [facility] Comment on above: Performed By: #### L 500.3400, L501.2450, L501.7300, L100.0100, L501.6900 #### [facility] [address] [place], [address] VBG pH 7.36 Normal 7.32-7.42 [facility] Comment on above: Performed By: #### L 500.3400, L501.2450, L501.7300, L100.0100, L501.6900 #### [facility] [address] [place], [address] VBG PO2 22 mmHg Low 25-40 [facility] Comment on above: Performed By: #### L 500.3400, L501.2450, L501.7300, L100.0100, L501.6900 #### [facility] [address] [place], [address] VBG SO2 33 Low 50-70 [facility] Comment on above: Performed By: #### L 500.3400, L501.2450, L501.7300, L100.0100, L501.6900 #### [facility] [address] [place], [address] Venous blood pH measurementO rdered By: Desmond Mendoza on 02-22-2024 pH (BldV) 7.36 [pH] 7.32-7.42 [facility] Vital signsOrdered By: Bryce Mendoza on 02-22-2024 Oxygen saturation in Blood 33 % 50-70 [facility] Whole blood hemoglobin A1c/t otal hemoglobin ratio (mass fraction)Ordered By: Mainor Coleman on 02-22-2024 HbA1c (Bld) [Mass fraction] 8.1 % 3.8-5.6 [facility] Comment on above: Normal < 5.7 % Predi abetic 5.7 - 6.4 % Diabetic >or= 6.5 % Please note range changes. CBC AND ELECTRONIC DIFFon Basophils (Bld) [#/Vol] 0.06 10*3/uL 0.00 - 0.09 K/uL [facility] Basophils/100 WBC (Bld) 0.7 % [facility] Differential cell count method Nom (Bld) Electronic Differential [facility] Eosinophils (Bld) [#/Vol] 0.60 10*3/uL High 0.00 - 0.48 K/uL [facility] Eosinophils/100 WBC (Bld) 7.5 % [facility] Erythrocyte distribution width (RBC) [Ratio] 13.6 % 10.9 - 14.3 % [facility] Hematocrit (Bld) [Volume fraction] 48.0 % 39.6 - 48.8 % [facility] Hemoglobin (Bld) [Mass/Vol] 16.3 g/dL 13.4 - 16.8 g/dL [facility] Immature granulocytes (Bld) [#/Vol] 0.05 10*3/uL NINF - 0.07 K/uL [facility] Immature granulocytes/100 WBC (Bld) 0.6 % [facility] Interpretation and review of laboratory results Abnormal [facility] Lymphocytes (Bld) [#/Vol] 2.18 10*3/uL 0.83 - 3.57 K/uL [facility] Lymphocytes/100 WBC (Bld) 27.2 % [facility] MCH (RBC) [Entitic mass] 30.1 pg 26.1 - 33.3 pg [facility] MCHC (RBC) [Mass/Vol] 34.0 g/dL 31.9 - 36.5 g/dL [facility] MCV (RBC) [Entitic vol] 88.7 fL 79.0 - 94.5 fL [facility] Monocytes (Bld) [#/Vol] 0.74 10*3/uL 0.24 - 0.93 K/uL [facility] Monocytes/100 WBC (Bld) 9.2 % [facility] Neutrophils (Bld) [#/Vol] 4.39 10*3/uL 1.57 - 6.19 K/uL [facility] Nucleated RBC/100 WBC (Bld) [Ratio] 0.0 % [facility] Platelet mean volume (Bld) [Entitic vol] 9.3 fL 8.7 - 12.3 fL [facility] Platelets (Bld) [#/Vol] 256 10*3/uL 146 - 337 K/uL [facility] RBC (Bld) [#/Vol] 5.41 10*6/uL [facility] Segmented neutrophils/100 WBC (Bld) 54.8 % [facility] WBC (Bld) [#/Vol] 8.02 10*3/uL 3.73 - 10.10 K/uL [facility] CMPN WITHOUT GLUCOSEon 02-14 Albumin [Mass/Vol] 4.1 g/dL 3.5 - 5.0 g/dL [facility] ALP [Catalytic activity/Vol] 116 U/L 32 - 126 U/L [facility] ALT [Catalytic activity/Vol] 88 U/L High 10 - 52 U/L [facility] Anion gap [Moles/Vol] 11 mmol/L 7 - 17 mmol/L [facility] AST [Catalytic activity/Vol] 46 U/L High 10 - 39 U/L [facility] Bilirubin [Mass/Vol] 0.4 mg/dL NINF - 1.5 mg/dL [facility] Calcium [Mass/Vol] 9.0 mg/dL 8.6 - 10. 5 mg/dL [facility] Chloride [Moles/Vol] 103 mmol/L 98 - 10 8 mmol/L [facility] CO2 [Moles/Vol] 24 mmol/L 21 - 31 mmol/L [facility] Creatinine [Mass/Vol] 0.81 mg/dL 0.70 - 1.30 mg/dL [facility] eGFR, CKD-EPI, Male - PINF [facility] Comment on above: Reported eGFR is bas ed on the CKD-EPI 2020 equation using creatinine, age, and sex. Interpretation and review of laboratory results Abnormal [facility] Potassium [Moles/Vol] 4.1 mmol/L 3.5 - 5.0 mmol/L [facility] Protein [Mass/Vol] 7.8 g/dL 6.4 - 8.3 g/dL [facility] Sodium [Moles/Vol] 134 mmol/L Low 135 - 145 mmol/L [facility] Urea nitrogen [Mass/Vol] 15 mg/dL 7 - 25 mg/dL [facility] Urea nitrogen/Creatinine [Mass ratio] 19 mg/mg [facility] LACTATE DEHYDROGENASEon Interpretation and review of laboratory results Normal [facility] LDH Lactate to pyruvate reaction [Catalytic activity/Vol] 143 U/L 100 - 190 U/L [facility] No Panel Informationon 02-14 [facility] SEDIMENTATION RATE, AUTOMATE Don 02-15-2024 ESR (Bld) [Velocity] 17 mm/h High NINF [facility] Interpretation and review of laboratory results Abnormal [facility] URINE PROTEIN/CREA RATIO, RA NDOMon 02-15-2024 Creatinine (24H U) [Mass/Vol] 60.18 mg/dL [facility] Protein Unsp time (U) [Mass/Vol] 8 mg/dL [facility] Protein/Creatinine (U) [Mass ratio] 0.133 mg/mg [facility] XR Shoulder - left 2 Viewson 01-12-2024 IMPRESSION: Small osseous fragment superior to the glenoid which could be posttraumatic Remote trauma of the clavicle OLOGY EXAM: XR SHOULDER LE FT 2+ VIEWS, 01/12/2024 09:38 AM CLINICAL INDICATIONS: left shoulder pain RELEVANT CLINICAL HISTORY: M25.511:Bilateral shoulder pain, unspecified chronicity M25.512:Bilateral shoulder pain, unspecified chronicity COMPARISON: No prior studies available for comparison. FINDINGS: 3 images obtained. Humeral head is seated within the glenoid. There are small osseous fragments adjacent to the superior glenoid likely posttraumatic. AC joint is aligned. Deformity of the mid clavicular diaphysis compatible with prior fracture. RADIOLOGY Radha Durham D O - 01/12/2024 EXAM: XR SHOULDER LEFT 2+ VIEWS, 01/12/2024 09:38 AM CLINICAL INDICATIONS: left shoulder pain RELEVANT CLINICAL HISTORY: M25.511:Bilateral shoulder pain, unspecified chronicity M25.512:Bilateral shoulder pain, unspecified chronicity COMPARISON: No prior studies available for comparison. FINDINGS: 3 images obtained. Humeral head is seated within the glenoid. There are small osseous fragments adjacent to the superior glenoid likely posttraumatic. AC joint is aligned. Deformity of the mid clavicular diaphysis compatible with prior fracture. IMPRESSION IMPRESSION: Small osseous fragment superior to the glenoid which could be posttraumatic Remote trauma of the clavicle [facility] Radiology Study observation (narrative) [facility] XR Shoulder - right 2 Viewso n 01-12-2024 IMPRESSION: No acute osseous abnormality Findings compatible with calcific tendinopathy of the rotator cuff OLOGY EXAM: XR SHOULDER RI GHT 2+ VIEWS, 01/12/2024 09:38 AM CLINICAL INDICATIONS: right shoulder pain RELEVANT CLINICAL HISTORY: M25.511:Bilateral shoulder pain, unspecified chronicity M25.512:Bilateral shoulder pain, unspecified chronicity COMPARISON: No prior studies available for comparison. FINDINGS: 3 images obtained. Humeral head is seated within the glenoid. Joint spaces maintained. No acute osseous abnormality. Calcification is adjacent to the greater tuberosity. AC joint is aligned. Incidental hypoplasia the glenoid neck which can predispose to shoulder instability RADIOLOGY Radha Durham D O - 01/12/2024 EXAM: XR SHOULDER RIGHT 2+ VIEWS, 01/12/2024 09:38 AM CLINICAL INDICATIONS: right shoulder pain RELEVANT CLINICAL HISTORY: M25.511:Bilateral shoulder pain, unspecified chronicity M25.512:Bilateral shoulder pain, unspecified chronicity COMPARISON: No prior studies available for comparison. FINDINGS: 3 images obtained. Humeral head is seated within the glenoid. Joint spaces maintained. No acute osseous abnormality. Calcification is adjacent to the greater tuberosity. AC joint is aligned. Incidental hypoplasia the glenoid neck which can predispose to shoulder instability IMPRESSION IMPRESSION: No acute osseous abnormality Findings compatible with calcific tendinopathy of the rotator cuff [facility] Radiology Study observation (narrative) [facility] XR Shoulder - right 2 ViewsO rdered By: Radha Durham on 01-12-2024 [facility] Work Phone: [id number] ACTIVITYOrdered By: Mahogany Rowley on 01-05-2024 [id number] Inhibitor Not Indicated [facility] vWf cleaving protease actual/normal Chromogenic method (PPP) [Rel catalytic activity/Vol] 95 % 40 - PINF % [facility] Comment on above: [id number] activity is measured by chromogenic ELLIE (enzyme-linked immunosorbent assay). Severe deficiencies of QVPXGN85 (activity <10%) appear to be a relatively specific finding in thrombotic microangiopathy patients with a clinical diagnosis of immune thrombotic thrombocytopenic purpura (TTP) or the congenital form of TTP (Vernon-Arnulfo Syndrome). However, mild to moderate deficiencies have also been observed in other clinical conditions, such as atypical hemolytic uremic syndrome (aHUS), sepsis, disseminated intravascular coagulation, and metastatic malignancy. Some literature also suggests serial measurement of JFFEPC90 activity levels may assist clinicians in monitoring TTP patients and provide prognostic value in prediction of TTP relapses. When interpreting the serological results, the history of the sample has to be taken into account. This test was developed and its performance characteristics determined by [facility] at [facility]. It has not been cleared or approved by the FDA. The laboratory is regulated under CLIA as qualified to perform high-complexity testing. This test is used for clinical purposes. It should not be regarded as investigational or for research. [facility] C REACTIVE PROTEINon 024 CRP High sensitivity method [Mass/Vol] 18.98 mg/L High NINF - 10.00 mg/L [facility] Interpretation and review of laboratory results Abnormal [facility] CBC AND ELECTRONIC DIFFon Basophils (Bld) [#/Vol] 0.06 10*3/uL 0.00 - 0.09 K/uL [facility] Basophils/100 WBC (Bld) 0.7 % O [facility] Differential cell count method Nom (Bld) Electronic Differential [facility] Eosinophils (Bld) [#/Vol] 0.67 10*3/uL High 0.00 - 0.48 K/uL [facility] Eosinophils/100 WBC (Bld) 7.7 % [facility] Erythrocyte distribution width (RBC) [Ratio] 14.2 % 10.9 - 14.3 % [facility] Hematocrit (Bld) [Volume fraction] 48.2 % 39.6 - 48.8 % [facility] Hemoglobin (Bld) [Mass/Vol] 15.9 g/dL 13.4 - 16.8 g/dL [facility] Immature granulocytes (Bld) [#/Vol] K/uL NINF - 0.07 K/uL [facility] Immature granulocytes/100 WBC (Bld) 0.2 % [facility] Interpretation and review of laboratory results Abnormal [facility] Lymphocytes (Bld) [#/Vol] 2.58 10*3/uL 0.83 - 3.57 K/uL [facility] Lymphocytes/100 WBC (Bld) 29.7 % [facility] MCH (RBC) [Entitic mass] 29.6 pg 26.1 - 33.3 pg [facility] MCHC (RBC) [Mass/Vol] 33.0 g/dL 31.9 - 36.5 g/dL [facility] MCV (RBC) [Entitic vol] 89.8 fL 79.0 - 94.5 fL [facility] Monocytes (Bld) [#/Vol] 0.77 10*3/uL 0.24 - 0.93 K/uL [facility] Monocytes/100 WBC (Bld) 8.9 % O [facility] Neutrophils (Bld) [#/Vol] 4.60 10*3/uL 1.57 - 6.19 K/uL [facility] Nucleated RBC/100 WBC (Bld) [Ratio] 0.0 % [facility] Platelet mean volume (Bld) [Entitic vol] 9.7 fL 8.7 - 12.3 fL [facility] Platelets (Bld) [#/Vol] 265 10*3/uL 146 - 337 K/uL [facility] RBC (Bld) [#/Vol] 5.37 10*6/uL [facility] Segmented neutrophils/100 WBC (Bld) 52.8 % [facility] WBC (Bld) [#/Vol] 8.70 10*3/uL 3.73 - 10.10 K/uL [facility] COMPREHENSIVE METABOLIC PANE Adán 01-04-2024 Albumin [Mass/Vol] 4.2 g/dL 3.5 - 5.0 g/dL [facility] ALP [Catalytic activity/Vol] 101 U/L 32 - 126 U/L [facility] ALT [Catalytic activity/Vol] 101 U/L High 10 - 52 U/L [facility] Anion gap [Moles/Vol] 10 mmol/L 7 - 17 mmol/L [facility] AST [Catalytic activity/Vol] 59 U/L High 10 - 39 U/L [facility] Bilirubin [Mass/Vol] 0.4 mg/dL NINF - 1.5 mg/dL [facility] Calcium [Mass/Vol] 9.6 mg/dL 8.6 - 10. 5 mg/dL [facility] Chloride [Moles/Vol] 103 mmol/L 98 - 10 8 mmol/L [facility] CO2 [Moles/Vol] 26 mmol/L 21 - 31 mmol/L [facility] Creatinine [Mass/Vol] 0.77 mg/dL 0.70 - 1.30 mg/dL [facility] eGFR, CKD-EPI, Male - PINF [facility] Comment on above: Reported eGFR is bas ed on the CKD-EPI 2020 equation using creatinine, age, and sex. Glucose [Mass/Vol] 160 mg/dL High 70 - 99 mg/dL [facility] Interpretation and review of laboratory results Abnormal [facility] Osmolality Calc [Osmolality] 287 [facility] Potassium [Moles/Vol] 4.0 mmol/L 3.5 - 5.0 mmol/L [facility] Protein [Mass/Vol] 7.5 g/dL 6.4 - 8.3 g/dL [facility] Sodium [Moles/Vol] 135 mmol/L 135 - 145 mmol/L [facility] Urea nitrogen [Mass/Vol] 12 mg/dL 7 - 25 mg/dL [facility] Urea nitrogen/Creatinine [Mass ratio] 16 mg/mg [facility] HEMOGLOBIN A1Con 01-04-2024 Average glucose Estimated from glycated hemoglobin (Bld) [Mass/Vol] 157 mg/dL [facility] HbA1c (Bld) [Mass fraction] 7.1 % High 4.7 - 5.6 % [facility] Interpretation and review of laboratory results Abnormal [facility] LACTATE DEHYDROGENASEon 12-15 Interpretation and review of laboratory results Normal [facility] LDH Lactate to pyruvate reaction [Catalytic activity/Vol] 158 U/L 100 - 190 U/L [facility] No Panel Informationon 01-03 [facility]) JAIRO ADKINS JR ([id number]) 1980 M Date Time Provider Department 12/31/23 NONE (HISTORICAL) ORQ During your visit today, we recorded the following information about you: Angel Cooley 12/31/2023 4:40 PM Signed Patient seen in [facility] on 12/31/2023 in regards to Carpal tunnel syndrome right wrist. Right shoulder rotator cuff tendinitis Dr. Patrick is the provider protection mgr Would Dr. Patrick or another provider be willing to see patient in regards to their injury? Patient can be reached at [phone] Thank You! Abbey Quan, RN 01/01/2024 7:39 AM Signed Pt has an appt 01/[address] Patrick Allergies As of Date: 12/31/2023 Noted Allergy Reaction ASPIRIN 10/29/2014 16 - Unknown BENTYL (DICYCLOMINE HCL) 10/29/2014 4 - Hives FENTANYL 10/29/2014 12 - Shortness of Breath Comments: swolling LATEX 10/29/2014 14 - Other: See Comments METHADONE 10/29/2014 14 - Other: See Comments Comments: dizziness MORPHINE 10/29/2014 4 - Hives PREDNISONE 10/29/2014 16 - Unknown TORADOL (KETOROLAC) 10/29/2014 14 - Other: See Comments Comments: dizziness ULTRAM (TRAMADOL) 10/29/2014 12 - Shortness of Breath Date Reviewed: 12/31/2023 Reviewed by: Polo Mello MD - Fully Assessed Reason for Visit: Appointment [186] Problem List As Of Date 12/31/2023 Noted Resolved Chronic pain [G89.29] 11/07/2014 DDD (degenerative disc disease), lumbar [M51.36]11/07/2014 Encounter Status:Closed by ANGEL COOLEY on 01/30/24 [facility] ED NOTEon 12-31-2023 ED NOTE HNO ID: [id number] Author: CLINT ESTEBAN RN Service: Nursing Author Type: Registered Nurse Type: ED Notes Filed: 12/31/2023 17:10 Note Text: Wrist splint was applied to right wrist, Pt instructed on home use via teachback method. Discharge instructions d/w pt and SO at bedside. Stated understanding with no further questions for this nurse. Encouraged f/u with PCP and referring doctors given. Stated understanding. Prescription(S) were given X1 (printed). [facility] ED NOTE HNO ID: [id number] Author: CLINT ESTEBAN RN Service: Nursing Author Type: Registered Nurse Type: ED Notes Filed: 12/31/2023 16:23 Note Text: MD Mello rounds on pt at bedside to assess. Normal [facility] ED NOTE HNO ID: [id number] Author: LIZZY DAMON RN Service: ? Author Type: Registered Nurse Type: ED Notes Filed: 12/31/2023 16:20 Note Text: Pt to ED with c/o right shoulder pain x 2 weeks and right wrist pain x 1 month with numbness to 3 fingers. Denies injury [facility] ED PROV NOTEon 12-31-2023 ED PROV NOTE HNO ID: [id number] Author: POLO MELLO MD Service: Emergency Medicine Author Type: Physician Type: ED Provider Notes Filed: 12/31/2023 16:37 Note Text: ED Provider Note Patient Name: Jairo Adkins : 1980 SERVICE DATE: 12/31/23 History Patient presents with: Pain (Shoulder Pain) Wrist Pain This is a 43-year-old male with right shoulder pain. He woke up with it about a week and a half ago. It hurts to abduct his shoulder. He is also had numbness in his right second third and fourth finger. He was on thumb spica splint but it is digging into his thumb. Initially helped but now it is not. 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 He cannot take aspirin because of his TTP. I reviewed old records and he was on naproxen earlier in December. History reviewed. No pertinent past medical history. History reviewed. No pertinent surgical history. No family history on file. Social History Tobacco Use Smoking status: Every Day Types: Cigarettes Smokeless tobacco: Not on file Vaping Use Vaping Use: Never used Substance and Sexual Activity Alcohol use: Not on file Drug use: Not on file Sexual activity: Not on file ALLERGIES Allergen Reactions Aspirin Unknown Bentyl [Dicyclomine* Hives Fentanyl Shortness of Breath swolling Latex Other: See Comments Methadone Other: See Comments dizziness Morphine Hives Prednisone Unknown Toradol [Ketorolac] Other: See Comments dizziness Ultram [Tramadol] Shortness of Breath Review of Systems Musculoskeletal: See HPI Physical Exam Vitals [12/31/23 1618] BP Pulse Temp Temp src Resp SpO2 Weight Height 120/93 74 36.7 ?C (98.1 ?F) Temporal 18 98 % 102.1 kg (225 lb) -- Physical Exam Vitals and nursing note reviewed. Exam conducted with a lower school spanish teacher present. HENT: Head: Normocephalic and atraumatic. Nose: Nose normal. Cardiovascular: Comments: Patient has 2+ equal radial pulses. Pulmonary: Effort: Pulmonary effort is normal. Musculoskeletal: Comments: Patient has full active range of motion about the shoulder. He has some pain on abduction and on internal rotation. He has pain over the biceps tendon. He has no clavicular pain or scapular pain. There is no neck masses noted. He has pain over the deltoid there is no skin rashes. There is no squaring off of the shoulder. He can fully internally and externally rotate his shoulder. He can abduct and abduct flex and extend his right shoulder. He has full flexion extension of the right elbow. He can flex and extend the right wrist. Radial median and ulnar motor function were tested in the hand are intact. 2 point discrimination is intact in all the fingers. Cap refill less than 2 seconds. There is no rashes. There is no evidence of any snuffbox tenderness distal radius or ulnar pain. He has no radial head pain no olecranon pain. There is no edema or swelling of the extremity. Skin: General: Skin is warm and dry. Findings: No rash. Neurological: Mental Status: He is alert. Diagnostic Testing ED Labs Ordered and Reviewed - No data to display Procedures ED Course / Clinical Impression Clinical Impressions as of 12/31/23 1637 Carpal tunnel syndrome of right wrist Right shoulder tendinitis MDM / Disposition / Plan This is a 43-year-old male with tendinitis of the right shoulder. Possibility of bursitis. Based on physical exam there is no evidence of fracture or dislocation. There is no evidence of DVT or cellulitis. He has symptoms consistent with carpal tunnel syndrome. His symptoms are worse in the morning. He had a splint placed with thumb spica splint. A Velcro wrist splint would be a better option than his thumb spica. The patient will need orthopedic follow-up. He cannot take oral steroids. He might need some steroid injections. He is unable to take NSAIDs. I did prescribe the patient acetaminophen. History and Record Review External record(s) reviewed: PDMP reviewed and other (see comments). Findings from review of other records: Prior records reveal he was on naproxen recently. Differential Diagnoses - Carpal tunnel syndrome is more likely for the following reason(s): suggested by HANDP - Right shoulder tendinitis - Wrist or shoulder fracture is less likely for the following reason(s): HANDP not suggestive - DVT is less likely for the following reason(s): HANDP not suggestive Disposition The patient was discharged. Counseled patient and spouse regarding suspected diagnosis. Follow Up Orders Status Ordering Provider FOLLOW UP APPOINTMENT REQUEST (ED/IP) Question Answer Comment Follow up appointment: Orthopedics Schedule follow up appointment within 1 week Follow Up Reason: Carpal tunnel syndrome right wrist. Right shoulder rotator cuff tendinitis Acknowledged POLO MELLO SIGNATURE: Polo Mello MD - POLO MELLO 12/31/23 1637 Normal [facility] CBC + DIFFon 12-24-2023 Baso # 0.02 x10EE3/UL Normal 0.00 - 0.10 [facility] Comment on above: Performed By: #### 2 [id number] #### [facility],[address] [place] [address] Basophils/100 WBC (Bld) 0.3 % Normal 0.0 - 2.0 [facility] Comment on above: Performed By: #### 2 [id number] #### [facility],[address] [place] [address] CBC + DIFF Normal [facility] Comment on above: Result Comment: CBC- COMPLETE BLOOD COUNT Performed By: #### 2 [id number] #### [facility],[address] [place] [address]9975 EO # 0.68 x10EE3/UL High 0.00 - 0.50 [facility] Comment on above: Performed By: #### 2 [id number] #### [facility],[address] [place] [address]20 Eosinophils/100 WBC (Bld) 9.4 % High 0.0 - 7.0 [facility] Comment on above: Performed By: #### 2 63845 #### [facility],[address] [place] [address]011 Erythrocyte distribution width (RBC) [Ratio] 13.7 % Normal 12.0 - 15.6 [facility] Comment on above: Performed By: #### 2 [id number] #### [facility],[address] [place], [place] [id number] Hematocrit (Bld) [Volume fraction] 44.0 % Normal 40.0 - 52.0 [facility] Comment on above: Performed By: #### 2 [id number] #### [facility],[address] [place] [address] Hemoglobin (Bld) [Mass/Vol] 15.5 g/dL Normal 13.0 - 17.5 [facility] Comment on above: Performed By: #### 2 [id number] #### [facility],[address] [place] [address] Lymph # 2.57 x10EE3/UL Normal 0.80 - 2.80 [facility] Comment on above: Performed By: #### 2 [id number] #### [facility],[address] [place], [place] [id number] Lymphocytes/100 WBC (Bld) 35.9 % Normal 20.0 - 45.0 [facility] Comment on above: Performed By: #### 2 75785 #### [facility],[address] [place] [address]658 MANUAL DIFF N/A Normal [facility] Comment on above: Performed By: #### 2 [id number] #### [facility],[address] [place], [place] [id number] MCH (RBC) [Entitic mass] 31 pg Normal 27 - 33 [facility] Comment on above: Performed By: #### 2 [id number] #### [address] [address] MCHC 35 X10 3 Normal 32 - 36 [facility] Comment on above: Performed By: #### 2 [id number] #### [facility],[address] [place], [place] [id number] MCV (RBC) [Entitic vol] 89 fL Normal 81 - 98 [facility] Comment on above: Performed By: #### 2 23754 #### [facility],[address] [place] [address] Andrew # 0.48 x10EE3/UL Normal 0.20 - 1.00 [facility] Comment on above: Performed By: #### 2 25212 #### [facility],[address] [place] [address] MONOS % 6.7 % Normal 0.0 - 10.0 [facility] Comment on above: Performed By: #### 2 80617 #### [facility],[address] [place] [address] Morphology Braxton (Bld) [Interp] N/A Normal [facility] Comment on above: Performed By: #### 2 08327 #### [facility],[address] [place] [address] Neut # 3.42 x10EE3/UL Normal 1.50 - 7.10 [facility] Comment on above: Performed By: #### 2 87628 #### [place] [address] Neutrophils/100 WBC (Bld) 47.8 % Normal 46.0 - 76.0 [facility] Comment on above: Performed By: #### 2 62105 #### [place] [address] PLATELET 216 x10EE3/UL Normal 150 - 450 [facility] Comment on above: Performed By: #### 2 [id number] #### [facility],[address] [place] [address] Platelet mean volume (Bld) [Entitic vol] 7.7 fL Normal 6.4 - 10.5 [facility] Comment on above: Result Comment: AUTO MATED DIFFERENTIAL Performed By: #### 2 64685 #### [place] [id number] RBC 4.97 x 10EE6/UL Normal 4.50 - 6.00 [facility] Comment on above: Performed By: #### 2 [id number] #### [facility],[address] [place] [address] 78352 WBC 7.2 x 10EE3/UL Normal 4.5 - 10.8 [facility] Comment on above: Performed By: #### 2 [id number] #### [facility],[address] [place], [place] [id number] CMP with eGFRon 12-24-2023 AGE 43 years Normal [facility] Comment on above: Performed By: #### 2 [id number] #### [facility],[address] [place], [place] [id number] Albumin [Mass/Vol] 3.3 g/dL Low 3.4 - 5.0 [facility] Comment on above: Performed By: #### 2 [id number] #### [facility],[address] [place], [place] [id number] Albumin/Globulin [Mass ratio] 0.8 {ratio} Low 0.9 - 1.6 [facility] Comment on above: Performed By: #### 2 [id number] #### [facility],[address] [place], [place] [id number] ALK PHOS 126 U/L High 46 - 116 [facility] Comment on above: Performed By: #### 2 88500 #### [facility],[address] [place] [address] 22676 ALT [Catalytic activity/Vol] 229 U/L High 16 - 63 [facility] Comment on above: Performed By: #### 2 [id number] #### [facility],[address] [place] [address] 57732 Anion gap [Moles/Vol] 13 mmol/L Normal 10 - 20 [facility] Comment on above: Performed By: #### 2 [id number] #### [facility],[address] [place] [address] 25261 AST [Catalytic activity/Vol] 111 U/L High 15 - 37 [facility] Comment on above: Performed By: #### 2 47535 #### [facility],[address] [place] [address] 30101 B/C RATIO 19 ratio Normal 0 - 30 [facility] Comment on above: Performed By: #### 2 [id number] #### [facility],[address] [place] [address] 67852 Bilirubin [Mass/Vol] 0.4 mg/dL Normal 0.2 - 1.0 [facility] Comment on above: Performed By: #### 2 [id number] #### [facility],[address] [place] [address] 43237 Calcium [Mass/Vol] 8.5 mg/dL Normal 8.5 - 10.1 [facility] Comment on above: Performed By: #### 2 90446 #### [facility],[address] [place] [address] 90041 Chloride [Moles/Vol] 104 mmol/L Normal 98 - 107 [facility] Comment on above: Performed By: #### 2 12938 #### [facility],[address] [place] [address] 18657 CMP with eGFR Normal [facility] Comment on above: Result Comment: COMP REHENSIVE METABOLIC PANEL Performed By: #### 2 70321 #### [facility],[address] [place] [address] 09662 CO2 [Moles/Vol] 25.8 mmol/L Normal 21.0 - 32.0 [facility] Comment on above: Performed By: #### 2 05912 #### [facility],[address] [place] [address] 94424 Creatinine [Mass/Vol] 0.86 mg/dL Normal 0.70 - 1.30 [facility] Comment on above: Performed By: #### 2 74438 #### [facility],[address] [place] [address] 61209 GFR/1.73 sq M.predicted among non-blacks MDRD (S/P/Bld) [Vol rate/Area] mL/min/{1.73_m2} Normal 60 - 999 [facility] Comment on above: Performed By: #### 2 [id number] #### [facility],[address] [place], [place] [id number] Result Comment: ACCO RDING TO THE NATIONAL KIDNEY DISEASE EDUCATION PROGRAM(NKDE), A NORMAL eGFR IS A VALUE GREATER THAN OR EQUAL TO 60 ML/MIN/1.73 SQ METERS. CHRONIC KIDNEY DISEASE: <60mL/MIN/1.73 SQ METERS KIDNEY FAILURE: <15mL/MIN/1.73 SQ METERS THIS TEST SHOULD ONLY BE USED FOR PATIENTS 18 YEARS OF AGE AND OLDER. Globulin (S) [Mass/Vol] 4.1 g/dL High 1.5 - 3.8 [facility] Comment on above: Performed By: #### 2 78137 #### [facility],[address] [place] [address] 58125 Glucose [Mass/Vol] 185 mg/dL High 74 - 106 [facility] Comment on above: Performed By: #### 2 35755 #### [facility],[address] [place] [address] 23741 Potassium [Moles/Vol] 3.6 mmol/L Normal 3.5 - 5.1 [facility] Comment on above: Performed By: #### 2 85603 #### [facility],[address] [place] [address] 30316 Protein [Mass/Vol] 7.4 g/dL Normal 6.4 - 8.2 [facility] Comment on above: Performed By: #### 2 87339 #### [facility],[address] [place] [address] 50715 Sodium [Moles/Vol] 139 mmol/L Normal 136 - 145 [facility] Comment on above: Performed By: #### 2 30927 #### [facility],[address] [place] [address] 78551 Urea nitrogen [Mass/Vol] 16 mg/dL Normal 7 - 18 [facility] Comment on above: Performed By: #### 2 21484 #### [facility],[address] [place] [address] 84671 CPKon 12-24-2023 CPK >1000 High 39 - 308 [facility] Comment on above: Performed By: #### 2 06371 #### [facility],[address] [place] [address] 35389 CPK >1000 High 39 - 308 [facility] Comment on above: Performed By: #### 2 63342 #### [facility],[address] [place] [address] BRAIN W/O CONTRASTon 12-14 CT BRAIN W/O CONTRAST [place] [address] Patient: JAIRO ADKINS Phone#: : 1980 Age: 43 Gender: M Pt. Type: ER Account: [id number] Location: [facility] Ordering: MAINOR FERNANDEZ Exam Date: 12/24/2023/7:02 Family Phys: Charge Code: [id number] Physician: [place] Order #: [id number] Dose#: [id number] PROCEDURE: CT BRAIN WITHOUT CONTRAST COMPARISON: None. INDICATIONS: Altered sensory function. TECHNIQUE: CT images were obtained without contrast material. All CT scans at this facility use dose modulation, iterative reconstruction, and/or weight based dosing when appropriate to reduce radiation dose to as low as reasonably achievable. IV CONTRAST: No IV contrast used,0ml TOTAL DOSE: 52.30 CTDIvol(mGy) FINDINGS: CEREBRUM: No edema, hemorrhage, mass, acute infarction, or inappropriate atrophy. CEREBELLUM: No edema, hemorrhage, mass, acute infarction, or inappropriate atrophy. BRAINSTEM: No edema, hemorrhage, mass, acute infarction, or inappropriate atrophy. CSF SPACES: Ventricles, cisterns, and sulci are appropriate for age. No hydrocephalus, subarachnoid hemorrhage, or mass. SKULL: There is a fluid level in the left maxillary sinus. Mucosal thickening of the ethmoid sinuses is present. SINUSES: Limited views demonstrate no significant mucosal thickening or fluid. ORBITS: Limited views are unremarkable. OTHER: Negative. CONCLUSION: 1. There is no evidence of acute intracranial abnormality. 2. Paranasal sinus disease. Dictated by: Joann Stock MD on 12/24/2023 at 23:00 Approved by: Joann Stock MD on 12/24/2023 at 23:03 Normal [facility] CT CERVICAL W/O CONTRASTon 0 12-24-2023 CT CERVICAL W/O CONTRAST [place] [address] Patient: JAIRO ADKINS Phone#: : 1980 Age: 43 Gender: M Pt. Type: ER Account: [id number] Location: 052 Ordering: MAINOR FERNANDEZ Exam Date: 12/24/2023/7:02 Family Phys: Charge Code: [id number] Physician: [place] Order #: [id number] Dose#: [id number] PROCEDURE: CT CERVICAL WITHOUT CONTRAST COMPARISON: None. INDICATIONS: Pain. TECHNIQUE: Multi-planar CT images were created without intravenous contrast. All CT scans at this facility use dose modulation, iterative reconstruction, and/or weight-based dosing when appropriate to reduce radiation dose to as low as reasonably achievable. IV CONTRAST: No IV contrast used,0ml TOTAL DOSE: 16.20 CTDIvol(mGy) FINDINGS: CRANIOCERVICAL AREA: Normal foramen magnum with no Chiari malformation. PARASPINAL AREA: Normal with no visible mass. BONES: No fracture, pars defect, or osseous lesion. There is straightening of the normal cervical lordosis. CERVICAL DISC LEVELS: C2-C3: No significant disc/facet abnormality, spinal stenosis, or foraminal stenosis. C3-C4: No significant disc/facet abnormality, spinal stenosis, or foraminal stenosis. C4-C5: No significant disc/facet abnormality, spinal stenosis, or foraminal stenosis. C5-C6: Disc space narrowing. Bony hypertrophy is present with bilateral foraminal narrowing. C6-C7: Disc space narrowing is present. There is bony hypertrophy with mild bilateral foraminal narrowing. C7-T1: No significant disc/facet abnormality, spinal stenosis, or foraminal stenosis. CONCLUSION: 1. Degenerative changes are present at the C5-6 and C6-7 level. 2. There is no evidence of acute fracture or subluxation. Dictated by: Joann Stock MD on 12/25/2023 at 8:46 Continued Report - Page 2 of 2 Patient: JAIRO ADKINS Phone#: : 1980 Age: 43 Gender: M Pt. Type: ER Account: [id number] Location: 052 Ordering: MAINOR FERNANDEZ Exam Date: 12/24/2023/7:02 Family Phys: Charge Code: [id number] Physician: [place] Order #: [id number] Dose#: [id number] Approved by: Joann Stock MD on 12/25/2023 at 8:54 Normal [facility] FINGERS RTon 12-24-2023 [address]ING[address] [place] [address] Patient: JAIRO ADKINS Phone#: : 1980 Age: 43 Gender: M Pt. Type: ER Account: [id number] Location: 052 Ordering: MAINOR FERNANDEZ Exam Date: 12/24/2023/8:22 Family Phys: Charge Code: [id number] Physician: [place] Order #: [id number] Dose#: PROCEDURE: X-RAY FINGER RT MIN 2 VIEWS COMPARISON: None. INDICATIONS: Index finger. FINDINGS: BONES: Normal. No significant arthropathy or acute abnormality. SOFT TISSUES: Negative. No visible soft tissue swelling. EFFUSION: None visible. OTHER: Negative. CONCLUSION: No acute disease. Dictated by: Joann Stock MD on 12/24/2023 at 21:53 Approved by: Joann Stock MD on 12/24/2023 at 21:53 Normal [facility] SHOULDER COMPLETE RTon 12-23 SHOULDER COMPLETE RT [place] [address] Patient: JAIRO ADKINS Phone#: : 1980 Age: 43 Gender: M Pt. Type: ER Account: [id number] Location: [facility] Ordering: MAINOR FERNANDEZ Exam Date: 12/24/2023/8:04 Family Phys: Charge Code: [id number] Physician: [place] Order #: [id number] Dose#: PROCEDURE: X-RAY SHOULDER COMPLETE RT MIN 2 VIEWS COMPARISON: None. INDICATIONS: Pain. FINDINGS: BONES: Normal. No significant arthropathy or acute abnormality. SOFT TISSUES: Negative. No visible soft tissue swelling. EFFUSION: None visible. OTHER: Negative. CONCLUSION: No acute disease. Dictated by: Joann Stock MD on 12/24/2023 at 21:51 Approved by: Joann Stock MD on 12/24/2023 at 21:52 Normal [facility] TROPONIN I, HIGH SENSITIVITY on 12-24-2023 HS TROPONIN 65.7 pg/mL Normal 0.0 - 76.2 [facility] Comment on above: Performed By: #### 2 [id number] #### [facility],[address] [place], [place] [id number] TSH W/ REFLEX TO FREE T4on 0 12-24-2023 TSH Qn 0.88 m[IU]/L Normal 0.34 - 5.60 [facility] Comment on above: Performed By: #### 2 95931 #### [facility],[address] [place], [place] [id number] ACTIVITYOrdered By: Mahogany Rowley on 11-17-2023 [id number] Inhibitor Not Indicated [facility] vWf cleaving protease actual/normal Chromogenic method (PPP) [Rel catalytic activity/Vol] 87 % 40 - PINF % [facility] Comment on above: [id number] activity is measured by chromogenic ELLIE (enzyme-linked immunosorbent assay). Severe deficiencies of YPBVDQ08 (activity <10%) appear to be a relatively specific finding in thrombotic microangiopathy patients with a clinical diagnosis of immune thrombotic thrombocytopenic purpura (TTP) or the congenital form of TTP (Vernon-Arnulfo Syndrome). However, mild to moderate deficiencies have also been observed in other clinical conditions, such as atypical hemolytic uremic syndrome (aHUS), sepsis, disseminated intravascular coagulation, and metastatic malignancy. Some literature also suggests serial measurement of QQPIDR91 activity levels may assist clinicians in monitoring TTP patients and provide prognostic value in prediction of TTP relapses. When interpreting the serological results, the history of the sample has to be taken into account. This test was developed and its performance characteristics determined by [facility] at [facility]. It has not been cleared or approved by the FDA. The laboratory is regulated under CLIA as qualified to perform high-complexity testing. This test is used for clinical purposes. It should not be regarded as investigational or for research. [facility] [id number] IGG ABOrdered By: Neil Pineda on 11-17-2023 Interpretation and review of laboratory results Abnormal [facility] vWf cleaving protease inhibitor Qn (PPP) 12.4 U/mL High NINF - 12.0 U/mL [facility] Comment on above: Anti-[id number] IgG an tibodies concentration is determined by ELLIE (enzyme-linked immunosorbent assay). This test was developed and its performance characteristics determined by the [facility] at [facility]. It has not been cleared or approved by the FDA. The laboratory is regulated under CLIA as qualified to perform high-complexity testing. This test is used for clinical purposes. It should not be regarded as investigational or for research. Results of this test should be considered in context of other established medical tests and diagnostic information with appropriate clinical correlation. Samples with high concentrations of autoantibodies other than anti-[id number] may result in weak positive or borderline results. Elevated bilirubin levels may cause a negative interference with anti-ADQCWN40 IgG antibodies test results. [facility] CBC AND ELECTRONIC DIFFon Basophils (Bld) [#/Vol] 0.04 10*3/uL 0.00 - 0.09 K/uL [facility] Basophils/100 WBC (Bld) 0.8 % [facility] Differential cell count method Nom (Bld) Electronic Differential [facility] Eosinophils (Bld) [#/Vol] 0.58 10*3/uL High 0.00 - 0.48 K/uL [facility] Eosinophils/100 WBC (Bld) 11.0 % [facility] Erythrocyte distribution width (RBC) [Ratio] 14.0 % 10.9 - 14.3 % [facility] Hematocrit (Bld) [Volume fraction] 48.2 % 39.6 - 48.8 % [facility] Hemoglobin (Bld) [Mass/Vol] 16.1 g/dL 13.4 - 16.8 g/dL [facility] Immature granulocytes (Bld) [#/Vol] K/uL NINF - 0.07 K/uL [facility] Immature granulocytes/100 WBC (Bld) 0.2 % [facility] Interpretation and review of laboratory results Abnormal [facility] Lymphocytes (Bld) [#/Vol] 2.11 10*3/uL 0.83 - 3.57 K/uL [facility] Lymphocytes/100 WBC (Bld) 40.1 % [facility] MCH (RBC) [Entitic mass] 30.4 pg 26.1 - 33.3 pg [facility] MCHC (RBC) [Mass/Vol] 33.4 g/dL 31.9 - 36.5 g/dL [facility] MCV (RBC) [Entitic vol] 90.9 fL 79.0 - 94.5 fL [facility] Monocytes (Bld) [#/Vol] 0.51 10*3/uL 0.24 - 0.93 K/uL [facility] Monocytes/100 WBC (Bld) 9.7 % [facility] Neutrophils (Bld) [#/Vol] 2.01 10*3/uL 1.57 - 6.19 K/uL [facility] Nucleated RBC/100 WBC (Bld) [Ratio] 0.0 % [facility] Platelet mean volume (Bld) [Entitic vol] 10.0 fL 8.7 - 12.3 fL [facility] Platelets (Bld) [#/Vol] 213 10*3/uL 146 - 337 K/uL [facility] RBC (Bld) [#/Vol] 5.30 10*6/uL [facility] Segmented neutrophils/100 WBC (Bld) 38.2 % [facility] WBC (Bld) [#/Vol] 5.26 10*3/uL 3.73 - 10.10 K/uL [facility] CMPN WITHOUT GLUCOSEon 11-16 Albumin [Mass/Vol] 3.9 g/dL 3.5 - 5.0 g/dL [facility] ALP [Catalytic activity/Vol] 114 U/L 32 - 126 U/L [facility] ALT [Catalytic activity/Vol] 98 U/L High 10 - 52 U/L [facility] Anion gap [Moles/Vol] 12 mmol/L 7 - 17 mmol/L [facility] AST [Catalytic activity/Vol] 56 U/L High 10 - 39 U/L [facility] Bilirubin [Mass/Vol] 0.3 mg/dL NINF - 1.5 mg/dL [facility] Calcium [Mass/Vol] 8.3 mg/dL Low 8.6 - 10. 5 mg/dL [facility] Chloride [Moles/Vol] 106 mmol/L 98 - 10 8 mmol/L [facility] CO2 [Moles/Vol] 24 mmol/L 21 - 31 mmol/L [facility] Creatinine [Mass/Vol] 0.68 mg/dL Low 0.70 - 1.30 mg/dL [facility] eGFR, CKD-EPI, Male - PINF [facility] Comment on above: Reported eGFR is bas ed on the CKD-EPI 2020 equation using creatinine, age, and sex. Interpretation and review of laboratory results Abnormal [facility] Potassium [Moles/Vol] 4.0 mmol/L 3.5 - 5.0 mmol/L [facility] Protein [Mass/Vol] 7.1 g/dL 6.4 - 8.3 g/dL [facility] Sodium [Moles/Vol] 138 mmol/L 135 - 145 mmol/L [facility] Urea nitrogen [Mass/Vol] 10 mg/dL 7 - 25 mg/dL [facility] Urea nitrogen/Creatinine [Mass ratio] 15 mg/mg [facility] LACTATE DEHYDROGENASEon 02-0 Interpretation and review of laboratory results Normal [facility] LDH Lactate to pyruvate reaction [Catalytic activity/Vol] 172 U/L 100 - 190 U/L [facility] No Panel Informationon 11-16 [facility] ED Nursing Noteon 09-16-2023 ED Nursing Note Discharge instructio ns, follow up care, and pain management discussed with patient. All questions answered, there are no further questions at this time. Patient ambulated off the unit independently at discharge. Nallely Roland RN 09/16/23 5598 Normal [facility] ED Nursing Note Patient ambulatory t o room 15 presenting with c/o of left [...] to change into. Call light in reach. Normal [facility] ED Provider Noteon 3 ED Provider Note EMERGENCY DEPARTMENT ENCOUNTER Pt Name: Jairo Adkins Birthdate 1980 Date of evaluation: 09/16/2023 ED Provider: Ok Adler DO CHIEF COMPLAINT Chief Complaint Patient presents [...] 1418] Temp Heart Rate Resp BP 36.7 ?C (98.1 ?F) 99 17 (!) 163/108 SpO2 Temp Source [...] 163/108 Pulse: 99 Resp: 17 Temp: 36.7 ?C (98.1 ?F) TempSrc: Oral SpO2: 97% Weight: 132 kg (290 lb) Height: 1.753 m (5' 9) Medications lidocaine-EPINEPHrine (Xylocaine W/EPI) 1 %-1:[id number] injection 10 mL (has no administration in [...] PROCEDURES Incision and Drainage Performed by: Ok Adler DO Authorized by: Ok Adler DO Consent: Consent obtained: Verbal Consent given by: Patient Risks discussed: Bleeding, incomplete drainage, pain and infection Alternatives discussed: Delayed treatment and (more content not included)... [facility] No Panel Informationon 09-16 Ok Adler DO 09/16/2023 5:12 PM Incision and Drainage Performed by: Ok Adler DO Authorized by: Ok Adler DO Consent: Consent obtained: Verbal Consent given by: Patient Risks discussed: Bleeding, incomplete drainage, pain and infection Alternatives discussed: Delayed treatment and referral Burns protocol: Patient identity confirmed: Verbally with patient [...] open Packing materials: 1/2 in gauze Amount 1/2: 6in Post-procedure details: Procedure completion: Tolerated well, no immediate complications [facility] Absolute lymphocyte countOrd ered By: Jo Dumont on 05-23-2023 Lymphocytes Auto (Unsp spec) [#/Vol] 2.19 10*3/uL 0.83-4.51 [facility] Basophil percentageOrdered B y: Jo Dumont on 05-23-2023 Basophils/100 WBC (Bld) 1.0 % 0-1 [facility] Chloride [Moles/Vol] 106 mmol/L 98-107 [facility] Eosinophils/100 WBC (Bld) 6.9 % 0-5 [facility] Glucose [Mass/Vol] 158 mg/dL 74-106 [facility] Comment on above: Fasting Glucose resu lt greater than or equal to 126 mg/dL suggests DIABETES MELLITUS per A.D.A. criteria. Neutrophils (Bld) [#/Vol] 4.3 10*3/uL 2.0-7.7 [facility] Neutrophils/100 WBC (Bld) 55.7 % 47-70 [facility] Potassium [Moles/Vol] 3.9 mmol/L 3.5-5.1 [facility] Sodium [Moles/Vol] 137 mmol/L 136-145 [facility] WBC (Bld) [#/Vol] 7.7 10*3/uL 4.4-11.0 [facility] Blood erythrocytes count (nu mber/volume)Ordered By: Jo Dumont on 05-23-2023 RBC (Bld) [#/Vol] 5.89 10*6/uL 4.6-6.2 [facility] Blood hemoglobin measurement (mass/volume)Ordered By: Jo Dumont on 05-23-2023 Hemoglobin (Bld) [Mass/Vol] 17.4 g/dL 13.0-16.5 [facility] Blood lymphocytes/100 leukoc ytesOrdered By: Jo Dumont on 05-23-2023 Lymphocytes/100 WBC (Bld) 28.4 % 19-41 [facility] Blood monocytes/100 leukocyt esOrdered By: Jo Dumont on 05-23-2023 Monocytes/100 WBC (Bld) 7.5 % 0-10 [facility] Blood platelet mean volumeOr dered By: Jo Dumont on 05-23-2023 Platelet mean volume (Bld) [Entitic vol] 9.2 fL 6.2-12.0 [facility] Determination of erythrocyte mean corpuscular volume (MCV)Ordered By: Jo Dumont on 05-23-2023 MCV (RBC) [Entitic vol] 90.8 fL 80-94 [facility] Hematocrit Auto (Bld) [Volum e fraction]Ordered By: [facility] on 05-23-2023 Hematocrit (Bld) [Volume fraction] 53.5 % 40-54 [facility] Laboratory - Chemistry and C hemistry - challengeOrdered By: Jo uDmont on 05-23-2023 CO2 [Moles/Vol] 25.0 mmol/L 21.0-32.0 [facility] Urea nitrogen/Creatinine [Mass ratio] 8.6 mg/mg 10-20 [facility] - Hematology and Cell countsOrdered By: [facility] Dumont on 05-23-2023 Erythrocyte distribution width (RBC) [Entitic vol] 47.0 fL 35.1-43.9 [facility] Erythrocyte distribution width (RBC) [Ratio] 14.1 % 11.6-14.6 [facility] Immature granulocytes/100 WBC (Bld) 0.500 % 0.0-0.9 [facility] Comment on above: IG% - Immature Granu locytes (promyelocytes, myelocytes and metamyelocytes) > 1% indicates that a LEFT SHIFT is Present. MCH (RBC) [Entitic mass] 29.5 pg 27.0-32.0 [facility] Nucleated RBC/100 WBC (Bld) [Ratio] 0 % 0-5 [facility] MCHC Auto (RBC) [Mass/Vol]Or dered By: Jo Dumont on 05-23-2023 MCHC (RBC) [Mass/Vol] 32.5 g/dL 32-36 [facility] No Panel InformationOrdered By: Jo Dumont on 05-23-2023 Estimated Creatinine Clearance Calc 103.47 ml/min [facility] Estimated GFR (MDRD) Amer 115 mL/min >60 [facility] Comment on above: GFR Calc Estimated GFR (MDRD) Non-Af Amer 95 mL/min >60 [facility] Comment on above: Non- GFR Calc Platelets bldOrdered By: Eulalia Dumont on 05-23-2023 Platelets (Bld) [#/Vol] 282 10*3/uL 150-450 [facility] Serum or plasma calcium branden urement (mass/volume)Ordered By: Jo Dumont on 05-23-2023 Calcium [Mass/Vol] 9.1 mg/dL 8.5-10.1 [facility] Serum or plasma creatinine m easurement (mass/volume)Ordered By: Jo Dumont on 05-23-2023 Creatinine [Mass/Vol] 0.93 mg/dL 0.70-1.30 [facility] Comment on above: The validity of the calculated GFR & GFRAA in patients over 70 years has not been determined. Clinical correlation is essential. Serum or plasma urea nitroge n measurement (mass/volume)Ordered By: Jo Dumont on 05-23-2023 Urea nitrogen [Mass/Vol] 8 mg/dL 7-18 [facility] Thin prep Papanicolaou smear with manual screeningOrdered By: Jo Dumont on 05-23-2023 Thin prep Papanicolaou smear with manual screening 6 5-15 [facility] POCT HEMOGLOBIN A1Con 2022 HbA1c (Bld) [Mass fraction] 6.5 % Abnormal 4.7 - 5.6 % [facility] Interpretation and review of laboratory results Abnormal [facility] Absolute lymphocyte countOrd ered By: Dr. Dick on 01-24-2023 Lymphocytes Auto (Unsp spec) [#/Vol] 2.10 10*3/uL 0.83-4.51 [facility] Basophil percentageOrdered B y: Dr. Dick on 01-24-2023 Basophils/100 WBC (Bld) 0.9 % 0-1 [facility] Chloride [Moles/Vol] 106 mmol/L 98-107 [facility] Eosinophils/100 WBC (Bld) 4.1 % 0-5 [facility] Glucose [Mass/Vol] 139 mg/dL 74-106 [facility] Comment on above: Fasting Glucose resu lt greater than or equal to 126 mg/dL suggests DIABETES MELLITUS per A.D.A. criteria. Neutrophils (Bld) [#/Vol] 5.6 10*3/uL 2.0-7.7 [facility] Neutrophils/100 WBC (Bld) 62.9 % 47-70 [facility] Potassium [Moles/Vol] 3.3 mmol/L 3.5-5.1 [facility] Sodium [Moles/Vol] 136 mmol/L 136-145 [facility] WBC (Bld) [#/Vol] 8.9 10*3/uL 4.4-11.0 [facility] Blood erythrocytes count (nu mber/volume)Ordered By: Dr. Dick on 01-24-2023 RBC (Bld) [#/Vol] 5.46 10*6/uL 4.6-6.2 [facility] Blood hemoglobin measurement (mass/volume)Ordered By: Dr. Dick on 01-24-2023 Hemoglobin (Bld) [Mass/Vol] 16.1 g/dL 13.0-16.5 [facility] Blood lymphocytes/100 leukoc ytesOrdered By: Dr. Dick on 01-24-2023 Lymphocytes/100 WBC (Bld) 23.7 % 19-41 [facility] Blood monocytes/100 leukocyt esOrdered By: Dr. Dick on 01-24-2023 Monocytes/100 WBC (Bld) 7.9 % 0-10 [facility] Blood platelet mean volumeOr dered By: Dr. Dick on 01-24-2023 Platelet mean volume (Bld) [Entitic vol] 9.3 fL 6.2-12.0 [facility] Determination of erythrocyte mean corpuscular volume (MCV)Ordered By: Dr. Dick on 01-24-2023 MCV (RBC) [Entitic vol] 89.2 fL 80-94 [facility] Hematocrit Auto (Bld) [Volum e fraction]Ordered By: Dr. Dick on 01-24-2023 Hematocrit (Bld) [Volume fraction] 48.7 % 40-54 [facility] Laboratory - Chemistry and C hemistry - challengeOrdered By: Dr. Dick on 01-24-2023 CO2 [Moles/Vol] 25.0 mmol/L 21.0-32.0 [facility] Urea nitrogen/Creatinine [Mass ratio] 11.6 mg/mg 10-20 [facility] Laboratory - Drug toxicology Ordered By: Dr. Dick on 01-24-2023 Amphetamines Ql (U) Positive <1000 ng/mL [facility] Benzodiazepines Ql (U) Negative < 200 ng/mL [facility] Cannabinoids Screen Ql (U) Positive < 50 ng/mL [facility] Cocaine Ql (U) Negative < 300 ng/mL [facility] Opiates Ql (U) Negative < 300 ng/mL [facility] Laboratory - Hematology and Cell countsOrdered By: Dr. Dick on 01-24-2023 Erythrocyte distribution width (RBC) [Entitic vol] 43.9 fL 35.1-43.9 [facility] Erythrocyte distribution width (RBC) [Ratio] 13.5 % 11.6-14.6 [facility] Immature granulocytes/100 WBC (Bld) 0.500 % 0.0-0.9 [facility] Comment on above: IG% - Immature Granu locytes (promyelocytes, myelocytes and metamyelocytes) > 1% indicates that a LEFT SHIFT is Present. MCH (RBC) [Entitic mass] 29.5 pg 27.0-32.0 [facility] Nucleated RBC/100 WBC (Bld) [Ratio] 0 % 0-5 [facility] MCHC Auto (RBC) [Mass/Vol]Or dered By: Dr. Dick on 01-24-2023 MCHC (RBC) [Mass/Vol] 33.1 g/dL 32-36 [facility] No Panel InformationOrdered By: Dr. Dick on 01-24-2023 MDMA (Ecstasy) Screen Negative < 500 ng/mL [facility] Urine Barbiturates Screen Negative < 200 ng/mL [facility] Urine Drug Screen Comment [facility] Comment on above: CONFIRMATORY TESTING FOR ALL POSITIVE URINE DRUG SCREENRESULTS WILL ONLY BE SENT OUT UPON PHYSICIAN ORDER. VISTA Urine Drug Screen methods provide only preliminaryanalytical test results. A more specific alternate chemicalmethod must be used in order to obtain a confirmedanalytical result. Gas chromatography/mass spectrometery(GC/MS) is the preferred confirmatory method. Clinicalconsideration and professional judgement should be appliedto any drug of abuse test result, particularly whenpreliminary positive results are used. URINE TCA TESTING MUST BE ORDERED SEPARATELY. USE TESTMNEMONIC: [facility] Urine Methadone Screen Negative < 300 ng/mL [facility] Estimated Creatinine Clearance Calc 113.04 ml/min [facility] Estimated GFR (MDRD) Amer 125 mL/min >60 [facility] Comment on above: GFR Calc Estimated GFR (MDRD) Non-Af Amer 103 mL/min >60 [facility] Comment on above: Non- GFR Calc Ethyl Alcohol Level < 3.0 mg/dL [facility] Comment on above: The serum:whole bloo d ethanol ratio is approximately 1.14and varies slightly with hematocrit. Medical Alcohol reference interval and critical value innon-tolerant individuals; 50 - 100 Impairment 100 Intoxication 100 - 250 Severe Poisoning 250 - 400 Deep/possible fatal coma Platelets bldOrdered By: Dr. Dick on 01-24-2023 Platelets (Bld) [#/Vol] 278 10*3/uL 150-450 [facility] Serum or plasma calcium branden urement (mass/volume)Ordered By: Dr. Dick on 01-24-2023 Calcium [Mass/Vol] 8.8 mg/dL 8.5-10.1 [facility] Serum or plasma creatinine m easurement (mass/volume)Ordered By: Dr. Dick on 01-24-2023 Creatinine [Mass/Vol] 0.86 mg/dL 0.70-1.30 [facility] Comment on above: The validity of the calculated GFR & GFRAA in patients over 70 years has not been determined. Clinical correlation is essential. Serum or plasma urea nitroge n measurement (mass/volume)Ordered By: Dr. Dick on 01-24-2023 Urea nitrogen [Mass/Vol] 10 mg/dL 7-18 [facility] Thin prep Papanicolaou smear with manual screeningOrdered By: Dr. Dick on 01-24-2023 Thin prep Papanicolaou smear with manual screening 5 5-15 [facility] Urine phencyclidine (PCP) de tectionOrdered By: Dr. Dick on 01-24-2023 Phencyclidine Ql (U) Negative < 25 ng/mL [facility] CBC AND ELECTRONIC DIFFon Basophils (Bld) [#/Vol] 0.08 10*3/uL 0.00 - 0.09 K/uL [facility] Basophils/100 WBC (Bld) 0.9 % [facility] Differential cell count method Nom (Bld) Electronic Differential [facility] Eosinophils (Bld) [#/Vol] 0.52 10*3/uL High 0.00 - 0.48 K/uL [facility] Eosinophils/100 WBC (Bld) 5.9 % [facility] Erythrocyte distribution width (RBC) [Ratio] 13.8 % 10.9 - 14.3 % [facility] Hematocrit (Bld) [Volume fraction] 45.6 % 39.6 - 48.8 % [facility] Hemoglobin (Bld) [Mass/Vol] 15.5 g/dL 13.4 - 16.8 g/dL [facility] Immature granulocytes (Bld) [#/Vol] 0.05 10*3/uL NINF - 0.07 K/uL [facility] Immature granulocytes/100 WBC (Bld) 0.6 % [facility] Interpretation and review of laboratory results Abnormal [facility] Lymphocytes (Bld) [#/Vol] 2.24 10*3/uL 0.83 - 3.57 K/uL [facility] Lymphocytes/100 WBC (Bld) 25.4 % [facility] MCH (RBC) [Entitic mass] 29.8 pg 26.1 - 33.3 pg [facility] MCHC (RBC) [Mass/Vol] 34.0 g/dL 31.9 - 36.5 g/dL [facility] MCV (RBC) [Entitic vol] 87.5 fL 79.0 - 94.5 fL [facility] Monocytes (Bld) [#/Vol] 0.77 10*3/uL 0.24 - 0.93 K/uL [facility] Monocytes/100 WBC (Bld) 8.7 % [facility] Neutrophils (Bld) [#/Vol] 5.15 10*3/uL 1.57 - 6.19 K/uL [facility] Nucleated RBC/100 WBC (Bld) [Ratio] 0.0 % [facility] Platelet mean volume (Bld) [Entitic vol] 8.9 fL 8.7 - 12.3 fL [facility] Platelets (Bld) [#/Vol] 327 10*3/uL 146 - 337 K/uL [facility] RBC (Bld) [#/Vol] 5.21 10*6/uL [facility] Segmented neutrophils/100 WBC (Bld) 58.5 % [facility] WBC (Bld) [#/Vol] 8.81 10*3/uL 3.73 - 10.10 K/uL [facility] CMPN WITHOUT GLUCOSEon 10-27 Albumin [Mass/Vol] 4.2 g/dL 3.5 - 5.0 g/dL [facility] ALP [Catalytic activity/Vol] 113 U/L 32 - 126 U/L [facility] ALT [Catalytic activity/Vol] 84 U/L High 10 - 52 U/L [facility] Anion gap [Moles/Vol] 12 mmol/L 7 - 17 mmol/L [facility] AST [Catalytic activity/Vol] 45 U/L High 10 - 39 U/L [facility] Bilirubin [Mass/Vol] 0.4 mg/dL NINF - 1.5 mg/dL [facility] Calcium [Mass/Vol] 9.4 mg/dL 8.6 - 10. 5 mg/dL [facility] Chloride [Moles/Vol] 100 mmol/L 98 - 10 8 mmol/L [facility] CO2 [Moles/Vol] 24 mmol/L 21 - 31 mmol/L [facility] Creatinine [Mass/Vol] 0.86 mg/dL 0.70 - 1.30 mg/dL [facility] GFR/1.73 sq M.predicted CKD-EPI (S/P/Bld) [Vol rate/Area] - PINF [facility] Comment on above: Reported eGFR is bas ed on the CKD-EPI 2020 equation using creatinine, age, and sex. Interpretation and review of laboratory results Abnormal [facility] Potassium [Moles/Vol] 4.0 mmol/L 3.5 - 5.0 mmol/L [facility] Protein [Mass/Vol] 7.4 g/dL 6.4 - 8.3 g/dL [facility] Sodium [Moles/Vol] 132 mmol/L Low 135 - 145 mmol/L [facility] Urea nitrogen [Mass/Vol] 12 mg/dL 7 - 25 mg/dL [facility] Urea nitrogen/Creatinine [Mass ratio] 14 mg/mg [facility] LACTATE DEHYDROGENASEon 10-16 Interpretation and review of laboratory results Normal [facility] LDH Lactate to pyruvate reaction [Catalytic activity/Vol] 162 U/L 100 - 190 U/L [facility] No Panel Informationon 10-27 [facility] MR Ankle - left WO contrasto n 10-06-2022 IMPRESSION: 1. Achilles tendinopathy with interstitial edema and perifascicular edema as well as bone marrow edema in the calcaneal enthesis and calcaneal tuberosity. This likely is a manifestation of tendinitis. 2. Chronic plantar fasciitis. 3. There is a ganglion cyst arising in between the third and fourth proximal metatarsal bones. 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 FINDINGS: Effusion: A small effusion is noted. Soft Tissue: There is diffuse soft swelling noted about the ankle. Retrocalcaneal subcutaneous fat edema is also evident. Ligaments: The components of the lateral collateral ligament, deltoid ligament, and syndesmotic ligaments appear grossly intact. There is focal thickening of the anterior talofibular ligament compatible prior strains. Tendons: There is thickening of the distal fibers of the Achilles tendon with interstitial edema at the enthesis. There is an enthesophyte noted with bone marrow edema within it and extending to the calcaneal tuberosity. The extensor tendons appear within normal limits. There is minimal fluid distending the posterior tibialis tendon sheath. The flexor digitorum and flexor hallucis longus tendons are within normal limits. There is mild medial subluxation of the peroneus brevis, otherwise the peroneal tendons appear grossly within normal limits. Plantar Fascia: There is thickening of the central cord of plantar fascia with an enthesophyte in the inferior calcaneus. Bone: Bone marrow signal intensity otherwise appears age-appropriate. There is a ganglion cyst arising in between the third and fourth metatarsal proximal metaphysis. Joint: The tibiotalar joint and visualized intertarsal joints are anatomically aligned. 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 FINDINGS: Effusion: A small effusion is noted. Soft Tissue: There is diffuse soft swelling noted about the ankle. Retrocalcaneal subcutaneous fat edema is also evident. Ligaments: The components of the lateral collateral ligament, deltoid ligament, and syndesmotic ligaments appear grossly intact. There is focal thickening of the anterior talofibular ligament compatible prior strains. Tendons: There is thickening of the distal fibers of the Achilles tendon with interstitial edema at the enthesis. There is an enthesophyte noted with bone marrow edema within it and extending to the calcaneal tuberosity. The extensor tendons appear within normal limits. There is minimal fluid distending the posterior tibialis tendon sheath. The flexor digitorum and flexor hallucis longus tendons are within normal limits. There is mild medial subluxation of the peroneus brevis, otherwise the peroneal tendons appear grossly within normal limits. Plantar Fascia: There is thickening of the central cord of plantar fascia with an enthesophyte in the inferior calcaneus. Bone: Bone marrow signal intensity otherwise appears age-appropriate. There is a ganglion cyst arising in between the third and fourth metatarsal proximal metaphysis. Joint: The tibiotalar joint and visualized intertarsal joints are anatomically aligned. IMPRESSION IMPRESSION: 1. Achilles tendinopathy with interstitial edema and perifascicular edema as well as bone marrow edema in the calcaneal enthesis and calcaneal tuberosity. This likely is a manifestation of tendinitis. 2. Chronic plantar fasciitis. 3. There is a ganglion cyst arising in between the third and fourth proximal metatarsal bones. [facility] Radiology Study observation (narrative) [facility] MR Ankle - left WO contrastO rdered By: Jean Marie Arana on 10-06-2022 [facility] Work Phone: [id number] ACTIVITYOrdered By: Mahogany Rowley on 07-22-2022 [id number] Inhibitor Not Indicated [facility] vWf cleaving protease actual/normal Chromogenic method (PPP) [Rel catalytic activity/Vol] 88 % >=40 [facility] Comment on above: [id number] activity is measured by chromogenic ELLIE (enzyme-linked immunosorbent assay). Severe deficiencies of [id number] (activity <10%) appear to be a relatively specific finding in thrombotic microangiopathy patients with a clinical diagnosis of immune thrombotic thrombocytopenic purpura (TTP) or the congenital form of TTP (Vernon-Arnulfo Syndrome). However, mild to moderate deficiencies have also been observed in other clinical conditions, such as atypical hemolytic uremic syndrome (aHUS), sepsis, disseminated intravascular coagulation, and metastatic malignancy. Some literature also suggests serial measurement of [id number] activity levels may assist clinicians in monitoring TTP patients and provide prognostic value in prediction of TTP relapses. When interpreting the serological results, the history of the sample has to be taken into account. This test was developed and its performance characteristics determined by [facility] at [facility]. It has not been cleared or approved by the FDA. The laboratory is regulated under CLIA as qualified to perform high-complexity testing. This test is used for clinical purposes. It should not be regarded as investigational or for research. [facility] CBC AND ELECTRONIC DIFFon Basophils (Bld) [#/Vol] 0.10 10*3/uL High 0.00 - 0.09 K/uL [facility] Basophils/100 WBC (Bld) 1.2 % [facility] Differential cell count method Nom (Bld) Electronic Differential [facility] Eosinophils (Bld) [#/Vol] 0.53 10*3/uL High 0.00 - 0.48 K/uL [facility] Eosinophils/100 WBC (Bld) 6.5 % [facility] Erythrocyte distribution width (RBC) [Ratio] 13.7 % 10.9 - 14.3 % [facility] Hematocrit (Bld) [Volume fraction] 46.7 % 39.6 - 48.8 % [facility] Hemoglobin (Bld) [Mass/Vol] 16.0 g/dL 13.4 - 16.8 g/dL [facility] Immature granulocytes (Bld) [#/Vol] 0.06 10*3/uL <=0.07 [facility] Immature granulocytes/100 WBC (Bld) 0.7 % [facility] Interpretation and review of laboratory results Abnormal [facility] Lymphocytes (Bld) [#/Vol] 2.39 10*3/uL 0.83 - 3.57 K/uL [facility] Lymphocytes/100 WBC (Bld) 29.5 % [facility] MCH (RBC) [Entitic mass] 30.3 pg 26.1 - 33.3 pg [facility] MCHC (RBC) [Mass/Vol] 34.3 g/dL 31.9 - 36.5 g/dL [facility] MCV (RBC) [Entitic vol] 88.4 fL 79.0 - 94.5 fL [facility] Monocytes (Bld) [#/Vol] 0.63 10*3/uL 0.24 - 0.93 K/uL [facility] Monocytes/100 WBC (Bld) 7.8 % [facility] Neutrophils (Bld) [#/Vol] 4.40 10*3/uL 1.57 - 6.19 K/uL [facility] Nucleated RBC/100 WBC (Bld) [Ratio] 0.0 % <=0.2 /100 WBC [facility] Platelet mean volume (Bld) [Entitic vol] 9.0 fL 8.7 - 12.3 fL [facility] Platelets (Bld) [#/Vol] 329 10*3/uL 146 - 337 K/uL [facility] RBC (Bld) [#/Vol] 5.28 10*6/uL [facility] Segmented neutrophils/100 WBC (Bld) 54.3 % [facility] WBC (Bld) [#/Vol] 8.11 10*3/uL 3.73 - 10.10 K/uL [facility] CMPN WITHOUT GLUCOSEon 07-21 Albumin [Mass/Vol] 4.0 g/dL 3.5 - 5.0 g/dL [facility] ALP [Catalytic activity/Vol] 115 U/L 32 - 126 U/L [facility] ALT [Catalytic activity/Vol] 40 U/L 10 - 52 U/L [facility] Anion gap [Moles/Vol] 9 mmol/L 7 - 17 mmol/L [facility] AST [Catalytic activity/Vol] 23 U/L 10 - 39 U/L [facility] Bilirubin [Mass/Vol] 0.3 mg/dL <1.5 [facility] Calcium [Mass/Vol] 8.9 mg/dL 8.6 - 10. 5 mg/dL [facility] Chloride [Moles/Vol] 104 mmol/L 98 - 10 8 mmol/L [facility] CO2 [Moles/Vol] 24 mmol/L 21 - 31 mmol/L [facility] Creatinine [Mass/Vol] 0.76 mg/dL 0.70 - 1.30 mg/dL [facility] GFR/1.73 sq M.predicted CKD-EPI (S/P/Bld) [Vol rate/Area] >90 >=60 mL/min/1.73 m2 [facility] Comment on above: Reported eGFR is bas ed on the CKD-EPI 2020 equation using creatinine, age, and sex. Interpretation and review of laboratory results Abnormal [facility] Potassium [Moles/Vol] 4.4 mmol/L 3.5 - 5.0 mmol/L [facility] Protein [Mass/Vol] 7.2 g/dL 6.4 - 8.3 g/dL [facility] Sodium [Moles/Vol] 133 mmol/L Low 135 - 145 mmol/L [facility] Urea nitrogen [Mass/Vol] 10 mg/dL 7 - 25 mg/dL [facility] Urea nitrogen/Creatinine [Mass ratio] 13 mg/mg [facility] HEMOGLOBIN [id number] By: Kia Nickerson on 07-21-2022 Average glucose Estimated from glycated hemoglobin (Bld) [Mass/Vol] 128 mg/dL [facility] HbA1c (Bld) [Mass fraction] 6.1 % High 4.7 - 5.6 % [facility] Interpretation and review of laboratory results Abnormal [facility] LACTATE DEHYDROGENASEon Interpretation and review of laboratory results Normal [facility] LDH Lactate to pyruvate reaction [Catalytic activity/Vol] 145 U/L 100 - 190 U/L [facility] LIPID PANEL WITH REFLEX TO M EASURED LDLon 07-21-2022 Cholesterol [Mass/Vol] 136 mg/dL <200 [facility] Comment on above: [<200 mg/dL: Desirab le] [200-239 mg/dL: Borderline High] [>239 mg/dL: High] Cholesterol in HDL [Mass/Vol] 27 mg/dL Low >=40 [facility] Comment on above: [<40 mg/dL: Low (Hig h Risk)] [>59 mg/dL: High (Low Risk)] Cholesterol in HDL [Mass/Vol] 109 mg/dL <130 [facility] Cholesterol in LDL [Mass/Vol] 71 mg/dL 0 - 99 mg/dL [facility] Comment on above: [<100 mg/dL: Optimal ] [100-129 mg/dL: Near Optimal] [130-159 mg/dL: Borderline High] [160-189 mg/dL: High] [>189 mg/dL: Very High] Cholesterol.total/Nela sterol in HDL [Mass ratio] 5.0 {ratio} High <4.5 [facility] Interpretation and review of laboratory results Abnormal [facility] Triglyceride [Mass/Vol] 189 mg/dL High <150 [facility] Comment on above: [<150 mg/dL: Desirab le] [150-199 mg/dL: Borderline] [200-499 mg/dL: High] [>500 mg/dL: Very High] [facility] No Panel Informationon 07-21 [facility] [id number] ACTIVITYOrdered By: Mahogany Rowley on 04-15-2022 [id number] Inhibitor Not Indicated [facility] vWf cleaving protease actual/normal Chromogenic method (PPP) [Rel catalytic activity/Vol] 81 % >=40 [facility] Comment on above: [id number] activity is measured by chromogenic ELLIE (enzyme-linked immunosorbent assay). Severe deficiencies of [id number] (activity <10%) appear to be a relatively specific finding in thrombotic microangiopathy patients with a clinical diagnosis of immune thrombotic thrombocytopenic purpura (TTP) or the congenital form of TTP (Vernon-Arnulfo Syndrome). However, mild to moderate deficiencies have also been observed in other clinical conditions, such as atypical hemolytic uremic syndrome (aHUS), sepsis, disseminated intravascular coagulation, and metastatic malignancy. Some literature also suggests serial measurement of [id number] activity levels may assist clinicians in monitoring TTP patients and provide prognostic value in prediction of TTP relapses. When interpreting the serological results, the history of the sample has to be taken into account. This test was developed and its performance characteristics determined by [facility] at [facility]. It has not been cleared or approved by the FDA. The laboratory is regulated under CLIA as qualified to perform high-complexity testing. This test is used for clinical purposes. It should not be regarded as investigational or for research. [facility] CBC AND ELECTRONIC DIFFon Basophils (Bld) [#/Vol] 0.09 10*3/uL 0.00 - 0.09 K/uL [facility] Basophils/100 WBC (Bld) 1.0 % [facility] Differential cell count method Nom (Bld) Electronic Differential [facility] Eosinophils (Bld) [#/Vol] 0.64 10*3/uL High 0.00 - 0.48 K/uL [facility] Eosinophils/100 WBC (Bld) 7.0 % [facility] Erythrocyte distribution width (RBC) [Ratio] 14.1 % 10.9 - 14.3 % [facility] Hematocrit (Bld) [Volume fraction] 48.1 % 39.6 - 48.8 % [facility] Hemoglobin (Bld) [Mass/Vol] 16.2 g/dL 13.4 - 16.8 g/dL [facility] Immature granulocytes (Bld) [#/Vol] 0.04 10*3/uL <=0.07 [facility] Immature granulocytes/100 WBC (Bld) 0.4 % [facility] Interpretation and review of laboratory results Abnormal [facility] Lymphocytes (Bld) [#/Vol] 2.26 10*3/uL 0.83 - 3.57 K/uL [facility] Lymphocytes/100 WBC (Bld) 24.7 % [facility] MCH (RBC) [Entitic mass] 29.8 pg 26.1 - 33.3 pg [facility] MCHC (RBC) [Mass/Vol] 33.7 g/dL 31.9 - 36.5 g/dL [facility] MCV (RBC) [Entitic vol] 88.4 fL 79.0 - 94.5 fL [facility] Monocytes (Bld) [#/Vol] 0.77 10*3/uL 0.24 - 0.93 K/uL [facility] Monocytes/100 WBC (Bld) 8.4 % [facility] Neutrophils (Bld) [#/Vol] 5.34 10*3/uL 1.57 - 6.19 K/uL [facility] Nucleated RBC/100 WBC (Bld) [Ratio] 0.0 % <=0.2 /100 WBC [facility] Platelet mean volume (Bld) [Entitic vol] 9.0 fL 8.7 - 12.3 fL [facility] Platelets (Bld) [#/Vol] 315 10*3/uL 146 - 337 K/uL [facility] RBC (Bld) [#/Vol] 5.44 10*6/uL [facility] Segmented neutrophils/100 WBC (Bld) 58.5 % [facility] WBC (Bld) [#/Vol] 9.14 10*3/uL 3.73 - 10.10 K/uL [facility] CMPN WITHOUT GLUCOSEon 04-14 Albumin [Mass/Vol] 4.3 g/dL 3.5 - 5.0 g/dL [facility] ALP [Catalytic activity/Vol] 101 U/L 32 - 126 U/L [facility] ALT [Catalytic activity/Vol] 74 U/L High 10 - 52 U/L [facility] Anion gap [Moles/Vol] 11 mmol/L 7 - 17 mmol/L [facility] AST [Catalytic activity/Vol] 49 U/L High 10 - 39 U/L [facility] Bilirubin [Mass/Vol] 0.5 mg/dL <1.5 [facility] Calcium [Mass/Vol] 9.2 mg/dL 8.6 - 10. 5 mg/dL [facility] Chloride [Moles/Vol] 100 mmol/L 98 - 10 8 mmol/L [facility] CO2 [Moles/Vol] 25 mmol/L 21 - 31 mmol/L [facility] Creatinine [Mass/Vol] 0.82 mg/dL 0.70 - 1.30 mg/dL [facility] GFR/1.73 sq M.predicted CKD-EPI (S/P/Bld) [Vol rate/Area] >90 >=60 mL/min/1.73 m2 [facility] Comment on above: Reported eGFR is bas ed on the CKD-EPI 2020 equation using creatinine, age, and sex. Interpretation and review of laboratory results Abnormal [facility] Potassium [Moles/Vol] 3.6 mmol/L 3.5 - 5.0 mmol/L [facility] Protein [Mass/Vol] 7.5 g/dL 6.4 - 8.3 g/dL [facility] Sodium [Moles/Vol] 132 mmol/L Low 135 - 145 mmol/L [facility] Urea nitrogen [Mass/Vol] 11 mg/dL 7 - 25 mg/dL [facility] Urea nitrogen/Creatinine [Mass ratio] 13 mg/mg [facility] LACTATE DEHYDROGENASEon 03-18 Interpretation and review of laboratory results Normal [facility] LDH Lactate to pyruvate reaction [Catalytic activity/Vol] 155 U/L 100 - 190 U/L [facility] No Panel Informationon 04-14 [facility] HEMOGLOBIN [id number] By: Simba Ortiz on 03-30-2022 Average glucose Estimated from glycated hemoglobin (Bld) [Mass/Vol] 134 mg/dL [facility] HbA1c (Bld) [Mass fraction] 6.3 % High 4.7 - 5.6 % [facility] Interpretation and review of laboratory results Abnormal [facility] XR Foot - right 3 Viewson IMPRESSION: 1. Achilles tendinosis with enthesopathy. 2. 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 3. 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 OLOGY EXAM: XR FOOT RIGHT 3 VIEWS, 02/08/2022 [...] first MTP joint and second DIP joint. RADIOLOGY Jean Marie Arana MD - 02/08/2022 EXAM: XR FOOT RIGHT 3 VIEWS, 02/08/2022 [...] first MTP joint and third DIP joint. [facility] Radiology Study observation (narrative) [facility] XR Foot - right 3 ViewsOrder ed By: Jean Marie Arana on 02-08-2022 [facility] Work Phone: XR Spine Lumbar and Sacrum 5 Viewson 01-27-2022 IMPRESSION: 1. No evidence of instability on flexion or extension. 2. Mild multilevel degenerative disc disease, primarily at lower lumbar spine. I personally viewed and interpreted these images and I have reviewed and approved this report. OLOGY EXAM: XR SPINE LUMBOSACRAL 5 VIEWS , [...] Facet joints appear anatomically aligned. Vascular calcifications. RADIOLOGY Dionne Rod MD - 01/27/2022 EXAM: XR SPINE LUMBOSACRAL 5 VIEWS , [...] I have reviewed and approved this report. [facility] Radiology Study observation (narrative) [facility] XR Spine Lumbar and Sacrum 5 ViewsOrdered By: Dionne Rod on 01-27-2022 [facility] Work Phone: Vital Signs Date Time Vital Sign Value Performing Clinician Facility 01-16-2025 10:00-0400 Body mass index (BMI) [Ratio] 44.86 kg/m2 Abdirahman Rutherford MD Work Phone: [facility] 01-16-2025 10:00-0400 Body temperature 97.5 [degF] Abdirahman Rutherford MD Work Phone: [facility] 01-16-2025 10:00-0400 Body weight 137.8 kg Abdirahman Rutherford MD Work Phone: [facility] 01-16-2025 10:00-0400 Diastolic blood pressure 73 mm[Hg] Abdirahman Rutherford MD Work Phone: [facility] 01-16-2025 10:00-0400 Heart rate 88 /min Abdirahman Rutherford MD Work Phone: [facility] 01-16-2025 10:00-0400 Respiratory rate 18 /min Abdirahman Rutherford MD Work Phone: [facility] 01-16-2025 10:00-0400 SaO2% (BldA) [Mass fraction] 95 % Abdirahman Rutherford MD Work Phone: [facility] 01-16-2025 10:00-0400 Systolic blood pressure 114 mm[Hg] Abdirahman Rutherford MD Work Phone: [facility] 09-26-2024 11:20-0500 Body mass index (BMI) [Ratio] 44.77 kg/m2 Abdirahman Rutherford MD Work Phone: [facility] 09-26-2024 11:20-0500 Body temperature 97.9 [degF] Abdirahman Rutherford MD Work Phone: [facility] 09-26-2024 11:20-0500 Body weight 137.53 kg Abdirahman Rutherford MD Work Phone: [facility] 09-26-2024 11:20-0500 Diastolic blood pressure 78 mm[Hg] Abdirahman Rutherford MD Work Phone: [facility] 09-26-2024 11:20-0500 Heart rate 85 /min Abdirahman Rutherford MD Work Phone: [facility] 09-26-2024 11:20-0500 Respiratory rate 18 /min Abdirahman Rutherford MD Work Phone: [facility] 09-26-2024 11:20-0500 SaO2% (BldA) [Mass fraction] 95 % Abdirahman Rutherford MD Work Phone: [facility] 09-26-2024 11:20-0500 Systolic blood pressure 124 mm[Hg] Abdirahman Rutherford MD Work Phone: [facility] 03-17-2024 14:58-0400 Body mass index (BMI) [Ratio] 38.4 kg/m2 Akbar Boogie MD Work Phone: [facility] 03-17-2024 14:58-0400 Body temperature 97.81 [degF] Akbar Boogie MD Work Phone: [facility] 03-17-2024 14:58-0400 Body weight 117.94 kg Akbar Boogie MD Work Phone: [facility] 03-17-2024 14:58-0400 Diastolic blood pressure 65 mm[Hg] Akbar Boogie MD Work Phone: [facility] 03-17-2024 14:58-0400 Heart rate 93 /min Akbar Boogie MD Work Phone: [facility] 03-17-2024 14:58-0400 Respiratory rate 16 /min Akbar Boogie MD Work Phone: [facility] 03-17-2024 14:58-0400 SaO2% (BldA) [Mass fraction] 100 % Akbar Boogie MD Work Phone: [facility] 03-17-2024 14:58-0400 Systolic blood pressure 119 mm[Hg] Akbar Boogie MD Work Phone: [facility] 02-25-2024 09:00-0400 Diastolic blood pressure 63 mm[Hg] Lois Trenton DO Work Phone: [facility] 02-25-2024 09:00-0400 Systolic blood pressure 135 mm[Hg] Lois Venessa DO Work Phone: [facility] 02-25-2024 08:40-0400 Body temperature 97.59 [degF] Lois Trenton DO Work Phone: [facility] 02-25-2024 08:40-0400 Heart rate 70 /min Lois Trenton DO Work Phone: [facility] 02-25-2024 08:40-0400 Respiratory rate 17 /min Lois Trenton DO Work Phone: [facility] 02-25-2024 08:40-0400 SaO2% (BldA) [Mass fraction] 94 % Lois Venessa DO Work Phone: [facility] 02-25-2024 02:36-0400 Body height 175.3 cm Lois Clifford DO Work Phone: [facility] 02-23-2024 13:30-0400 Body temperature 98.4 [degF] No Primary Care Physician [facility] 02-23-2024 13:30-0400 Diastolic blood pressure 100 mm[Hg] No Primary Care Physician [facility] 02-23-2024 13:30-0400 Heart rate 104 /min No Primary Care Physician [facility] 02-23-2024 13:30-0400 Respiratory rate 18 /min No Primary Care Physician [facility] 02-23-2024 13:30-0400 SaO2% (BldA) [Mass fraction] 94 % No Primary Care Physician [facility] 02-23-2024 13:30-0400 Systolic blood pressure 144 mm[Hg] No Primary Care Physician [facility] 02-23-2024 09:39-0400 Body height 175.26 cm No Primary Care Physician [facility] 02-23-2024 09:39-0400 Body weight 126.7 kg No Primary Care Physician [facility] 02-23-2024 06:27-0400 Body mass index (BMI) [Ratio] 41.2 kg/m2 No Primary Care Physician [facility] 02-23-2024 05:41-0400 Body temperature 98 [degF] No Primary Care Physician [facility] 02-23-2024 05:41-0400 Diastolic blood pressure 100 mm[Hg] No Primary Care Physician [facility] 02-23-2024 05:41-0400 Heart rate 89 /min No Primary Care Physician [facility] 02-23-2024 05:41-0400 Respiratory rate 16 /min No Primary Care Physician [facility] 02-23-2024 05:41-0400 SaO2% (BldA) [Mass fraction] 96 % No Primary Care Physician [facility] 02-23-2024 05:41-0400 Systolic blood pressure 148 mm[Hg] No Primary Care Physician [facility] 02-23-2024 04:39-0400 Body height 175.26 cm No Primary Care Physician [facility] 02-23-2024 04:39-0400 Body mass index (BMI) [Ratio] 41.2 kg/m2 No Primary Care Physician [facility] 02-23-2024 04:39-0400 Body weight 126.6 kg No Primary Care Physician [facility] 02-23-2024 02:28-0400 Body temperature 98 [degF] No Primary Care Physician [facility] 02-23-2024 02:28-0400 Diastolic blood pressure 78 mm[Hg] No Primary Care Physician [facility] 02-23-2024 02:28-0400 Heart rate 82 /min No Primary Care Physician [facility] 02-23-2024 02:28-0400 Respiratory rate 18 /min No Primary Care Physician [facility] 02-23-2024 02:28-0400 SaO2% (BldA) [Mass fraction] 97 % No Primary Care Physician [facility] 02-23-2024 02:28-0400 Systolic blood pressure 147 mm[Hg] No Primary Care Physician [facility] 02-22-2024 22:19-0400 Body height 175.26 cm No Primary Care Physician [facility] 02-22-2024 22:19-0400 Body mass index (BMI) [Ratio] 41.3 kg/m2 No Primary Care Physician [facility] 02-22-2024 22:19-0400 Body weight 127 kg No Primary Care Physician [facility] 02-15-2024 08:00-0400 Body mass index (BMI) [Ratio] 42.65 kg/m2 Edilia Robles APRN-METHODS EXAMINER Work Phone: [facility] 02-15-2024 08:00-0400 Body temperature 98.1 [degF] Edilia Robles APRN-METHODS EXAMINER Work Phone: [facility] 02-15-2024 08:00-0400 Body weight 131 kg Edilia Robles APRN-METHODS EXAMINER Work Phone: [facility] 02-15-2024 08:00-0400 Diastolic blood pressure 99 mm[Hg] Edilia Robles APRN-METHODS EXAMINER Work Phone: [facility] 02-15-2024 08:00-0400 Heart rate 77 /min Edilia Robles APRN-METHODS EXAMINER Work Phone: [facility] 02-15-2024 08:00-0400 Respiratory rate 18 /min Edilia Travis [facility] Work Phone: [facility] 02-15-2024 08:00-0400 SaO2% (BldA) [Mass fraction] 94 % [facility] Work Phone: [facility] 02-15-2024 08:00-0400 Systolic blood pressure 153 mm[Hg] [facility] Work Phone: [facility] 01-04-2024 11:49-0400 Body mass index (BMI) [Ratio] 42.62 kg/m2 Abdirahman Rutherford MD Work Phone: [facility] 01-04-2024 11:49-0400 Body temperature 97.59 [degF] Abdirahman Rutherford MD Work Phone: [facility] 01-04-2024 11:49-0400 Body weight 130.91 kg Abdirahman Rutherford MD Work Phone: [facility] 01-04-2024 11:49-0400 Diastolic blood pressure 88 mm[Hg] Abdirahman Rutherford MD Work Phone: [facility] 01-04-2024 11:49-0400 Heart rate 91 /min Abdirahman Rutherford MD Work Phone: [facility] 01-04-2024 11:49-0400 Respiratory rate 18 /min Abdirahman Rutherford MD Work Phone: [facility] 01-04-2024 11:49-0400 SaO2% (BldA) [Mass fraction] 96 % Abdirahman Rutherford MD Work Phone: [facility] 01-04-2024 11:49-0400 Systolic blood pressure 137 mm[Hg] Abdirahman Rutherford MD Work Phone: [facility] 12-23-2023 05:21-0500 Body height 175.26 cm No Primary Care Physician [facility] 12-23-2023 05:21-0500 Body mass index (BMI) [Ratio] 42.4 kg/m2 No Primary Care Physician [facility] 12-23-2023 05:21-0500 Body temperature 97.9 [degF] No Primary Care Physician [facility] 12-23-2023 05:21-0500 Body weight 130.3 kg No Primary Care Physician [facility] 12-23-2023 05:21-0500 Diastolic blood pressure 99 mm[Hg] No Primary Care Physician [facility] 12-23-2023 05:21-0500 Systolic blood pressure 132 mm[Hg] No Primary Care Physician [facility] 12-12-2023 04:39-0500 Body temperature 98.1 [degF] No Primary Care Physician [facility] 12-12-2023 04:39-0500 Diastolic blood pressure 78 mm[Hg] No Primary Care Physician [facility] 12-12-2023 04:39-0500 Heart rate 85 /min No Primary Care Physician [facility] 12-12-2023 04:39-0500 Respiratory rate 16 /min No Primary Care Physician [facility] 12-12-2023 04:39-0500 SaO2% (BldA) [Mass fraction] 94 % No Primary Care Physician [facility] 12-12-2023 04:39-0500 Systolic blood pressure 111 mm[Hg] No Primary Care Physician [facility] 12-12-2023 04:01-0500 Body mass index (BMI) [Ratio] 42.5 kg/m2 No Primary Care Physician [facility] 12-12-2023 04:01-0500 Body weight 130.5 kg No Primary Care Physician [facility] 12-01-2023 10:31-0500 Body mass index (BMI) [Ratio] 42 kg/m2 No Primary Care Physician [facility] 12-01-2023 10:31-0500 Body weight 129.27 kg No Primary Care Physician [facility] 11-30-2023 04:55-0500 Body temperature 98.3 [degF] [facility] 11-30-2023 04:55-0500 Diastolic blood pressure 90 mm[Hg] [facility] 11-30-2023 04:55-0500 Heart rate 90 /min [facility] 11-30-2023 04:55-0500 Respiratory rate 18 /min [facility] 11-30-2023 04:55-0500 SaO2% (BldA) [Mass fraction] 98 % [facility] 11-30-2023 04:55-0500 Systolic blood pressure 140 mm[Hg] [facility] 11-30-2023 03:35-0500 Body height 175.26 cm [facility] 11-30-2023 03:35-0500 Body mass index (BMI) [Ratio] 42.6 kg/m2 [facility] 11-30-2023 03:35-0500 Body weight 130.9 kg [facility] 11-27-2023 04:30-0500 Body temperature 97.7 [degF] TOD ARROYO MD [facility] 11-27-2023 04:30-0500 Diastolic Blood Pressure Non-Invasive 80 mm[Hg] TOD ARROYO MD [facility] 11-27-2023 04:30-0500 Heart rate 99 /min TOD ARROYO MD [facility] 11-27-2023 04:30-0500 Respiratory rate 16 /min TOD ARROYO MD [facility] 11-27-2023 04:30-0500 Systolic Blood Pressure Non-Invasive 135 mm[Hg] TOD ARROYO MD [facility] 11-10-2023 04:14-0500 Body temperature 98.3 [degF] [facility] 11-10-2023 04:14-0500 Diastolic blood pressure 90 mm[Hg] [facility] 11-10-2023 04:14-0500 Heart rate 90 /min [facility] 11-10-2023 04:14-0500 Respiratory rate 18 /min [facility] 11-10-2023 04:14-0500 SaO2% (BldA) [Mass fraction] 98 % [facility] 11-10-2023 04:14-0500 Systolic blood pressure 156 mm[Hg] [facility] 11-10-2023 04:12-0500 Body height 175.26 cm [facility] 11-10-2023 04:12-0500 Body mass index (BMI) [Ratio] 42.5 kg/m2 [facility] 11-10-2023 04:12-0500 Body weight 130.5 kg [facility] 11-03-2023 09:44-0500 Body height 175.3 cm NIDAL CHOUJAA DO [facility] 11-03-2023 09:44-0500 Body temperature 97.52 [degF] NIDAL CHOUJAA DO [facility] 11-03-2023 09:44-0500 Body weight 127.3 kg NIDAL CHOUJAA DO [facility] 11-03-2023 09:44-0500 Diastolic Blood Pressure Non-Invasive 91 mm[Hg] NIDAL CHOUJAA DO [facility] 11-03-2023 09:44-0500 Heart rate 83 /min NIDAL CHOUJAA DO [facility] 11-03-2023 09:44-0500 Respiratory rate 18 /min NIDAL CHOUJAA DO [facility] 11-03-2023 09:44-0500 Systolic Blood Pressure Non-Invasive 143 mm[Hg] NIDAL CHOUJAA DO [facility] 10-29-2023 13:09-0500 Body height 175.26 cm [facility] 10-29-2023 13:09-0500 Body mass index (BMI) [Ratio] 41.6 kg/m2 [facility] 10-29-2023 13:09-0500 Body temperature 96.7 [degF] [facility] 10-29-2023 13:09-0500 Body weight 127.91 kg [facility] 10-29-2023 13:09-0500 Diastolic blood pressure 72 mm[Hg] [facility] 10-29-2023 13:09-0500 Heart rate 92 /min [facility] 10-29-2023 13:09-0500 Respiratory rate 18 /min [facility] 10-29-2023 13:09-0500 SaO2% (BldA) [Mass fraction] 99 % [facility] 10-29-2023 13:09-0500 Systolic blood pressure 128 mm[Hg] [facility] 09-16-2023 14:18-0500 Body height 175.3 cm Ok Adler DO Work Phone: [facility] 09-16-2023 14:18-0500 Body mass index (BMI) [Ratio] 42.83 kg/m2 Ok Sunshineramartinala DO Work Phone: [facility] 09-16-2023 14:18-0500 Body temperature 98.1 [degF] Ok Jabarila DO Work Phone: [facility] 09-16-2023 14:18-0500 Body weight 131.54 kg Ok Sunshineramartinala DO Work Phone: [facility] 09-16-2023 14:18-0500 Diastolic blood pressure 108 mm[Hg] Ok Sunshinerakola DO Work Phone: [facility] 09-16-2023 14:18-0500 Heart rate 99 /min Ok Sunshineramartinala DO Work Phone: [facility] 09-16-2023 14:18-0500 Respiratory rate 17 /min Ok Mudrakola DO Work Phone: [facility] 09-16-2023 14:18-0500 SaO2% (BldA) [Mass fraction] 97 % Ok Adler DO Work Phone: [facility] 09-16-2023 14:18-0500 Systolic blood pressure 163 mm[Hg] Ok Adler DO Work Phone: [facility] 05-23-2023 12:49-0400 Diastolic blood pressure 91 mm[Hg] [facility] 05-23-2023 12:49-0400 Heart rate 68 /min [facility] 05-23-2023 12:49-0400 Respiratory rate 14 /min [facility] 05-23-2023 12:49-0400 SaO2% (BldA) [Mass fraction] 98 % [facility] 05-23-2023 12:49-0400 Systolic blood pressure 134 mm[Hg] [facility] 05-23-2023 10:49-0400 Body height 175.26 cm [facility] 05-23-2023 10:49-0400 Body mass index (BMI) [Ratio] 41.5 kg/m2 [facility] 05-23-2023 10:49-0400 Body temperature 96.7 [degF] [facility] 05-23-2023 10:49-0400 Body weight 127.59 kg [facility] 02-13-2023 09:57-0400 Body mass index (BMI) [Ratio] 40.87 kg/m2 Sonido [facility] Work Phone: [facility] 02-13-2023 09:57-0400 Body weight 134.63 kg Sonido [facility] Work Phone: [facility] 02-13-2023 09:57-0400 Diastolic blood pressure 88 mm[Hg] Sonido [facility] Work Phone: [facility] 02-13-2023 09:57-0400 Heart rate 88 /min Sonido [facility] Work Phone: [facility] 02-13-2023 09:57-0400 Systolic blood pressure 134 mm[Hg] Sonido Dyer [facility] Work Phone: [facility] 01-24-2023 05:22-0400 Respiratory rate 16 /min [facility] 01-23-2023 23:23-0400 Body height 175.26 cm [facility] 01-23-2023 23:23-0400 Body mass index (BMI) [Ratio] 43.1 kg/m2 [facility] 01-23-2023 23:23-0400 Body temperature 0 [degF] [facility] 01-23-2023 23:23-0400 Body weight 132.44 kg [facility] 10-27-2022 13:07-0500 Body height 181.5 cm Lonniedamon Ring [employer] APPRENTICE-METHODS EXAMINER Work Phone: [facility] 10-27-2022 13:07-0500 Body mass index (BMI) [Ratio] 39.66 kg/m2 Lonnie Bogantz COREMAKER APPRENTICE-METHODS EXAMINER Work Phone: [facility] 10-27-2022 13:07-0500 Body temperature 98.4 [degF] Lonnie Giovannyz COREMAKER APPRENTICE-METHODS EXAMINER Work Phone: [facility] 10-27-2022 13:07-0500 Body weight 130.64 kg Lonnie Giovannyz COREMAKER APPRENTICE-METHODS EXAMINER Work Phone: [facility] 10-27-2022 13:07-0500 Diastolic blood pressure 74 mm[Hg] Lonnie Mckeonantz COREMAKER APPRENTICE-METHODS EXAMINER Work Phone: [facility] 10-27-2022 13:07-0500 Heart rate 106 /min Lonniedamon Ring COREMAKER APPRENTICE-METHODS EXAMINER Work Phone: [facility] 10-27-2022 13:07-0500 Respiratory rate 18 /min Lonnie Ring COREMAKER APPRENTICE-METHODS EXAMINER Work Phone: [facility] 10-27-2022 13:07-0500 SaO2% (BldA) [Mass fraction] 95 % Lonnie Ring COREMAKER APPRENTICE-METHODS EXAMINER Work Phone: [facility] 10-27-2022 13:07-0500 Systolic blood pressure 122 mm[Hg] Lonnie Ring COREMAKER APPRENTICE-METHODS EXAMINER Work Phone: [facility] 10-27-2022 09:01-0500 Body height 175.3 cm Abdirahman Rutherford MD Work Phone: [facility] 10-27-2022 09:01-0500 Body mass index (BMI) [Ratio] 42.65 kg/m2 Abdirahman Rutherford MD Work Phone: [facility] 10-27-2022 09:01-0500 Body temperature 98.49 [degF] Abdirahman Rutherford MD Work Phone: [facility] 10-27-2022 09:01-0500 Body weight 131 kg Abdirahman Rutherford MD Work Phone: [facility] 10-27-2022 09:01-0500 Diastolic blood pressure 79 mm[Hg] Abdirahman Rutherford MD Work Phone: [facility] 10-27-2022 09:01-0500 Heart rate 115 /min Abdirahman Rutherford MD Work Phone: [facility] 10-27-2022 09:01-0500 Respiratory rate 16 /min Abdirahman Rutherford MD Work Phone: [facility] 10-27-2022 09:01-0500 SaO2% (BldA) [Mass fraction] 96 % Abdirahman Rutherford MD Work Phone: [facility] 10-27-2022 09:01-0500 Systolic blood pressure 124 mm[Hg] Abdirahman Rutherford MD Work Phone: [facility] 10-18-2022 04:21-0500 Body height 175.26 cm [facility] Work Phone: 10-18-2022 04:21-0500 Body mass index (BMI) [Ratio] 42.3 kg/m2 [facility] 10-18-2022 04:21-0500 Body temperature 97.5 [degF] [facility] 10-18-2022 04:21-0500 Body weight 129.9 kg [facility] 10-18-2022 04:21-0500 Diastolic blood pressure 93 mm[Hg] [facility] 10-18-2022 04:21-0500 Heart rate 101 /min [facility] 10-18-2022 04:21-0500 Respiratory rate 15 /min [facility] 10-18-2022 04:21-0500 SaO2% (BldA) [Mass fraction] 95 % [facility] 10-18-2022 04:21-0500 Systolic blood pressure 144 mm[Hg] [facility] 10-09-2022 04:40-0500 Diastolic blood pressure 68 mm[Hg] [facility] 10-09-2022 04:40-0500 Heart rate 87 /min [facility] 10-09-2022 04:40-0500 Respiratory rate 16 /min [facility] 10-09-2022 04:40-0500 SaO2% (BldA) [Mass fraction] 97 % [facility] 10-09-2022 04:40-0500 Systolic blood pressure 140 mm[Hg] [facility] 10-09-2022 04:31-0500 Body height 175.26 cm [facility] Work Phone: 10-09-2022 04:31-0500 Body mass index (BMI) [Ratio] 43.1 kg/m2 [facility] 10-09-2022 04:31-0500 Body temperature 98.8 [degF] [facility] 10-09-2022 04:31-0500 Body weight 132.5 kg [facility] 07-21-2022 10:47-0400 Diastolic blood pressure 86 mm[Hg] Abdirahman Rutherford MD Work Phone: [facility] 07-21-2022 10:47-0400 Heart rate 89 /min Abdirahman Rutherford MD Work Phone: [facility] 07-21-2022 10:47-0400 Systolic blood pressure 126 mm[Hg] Abdirahman Rutherford MD Work Phone: [facility] 07-21-2022 09:48-0400 Body height 175.3 cm Abdirahman Rutherford MD Work Phone: [facility] 07-21-2022 09:48-0400 Body mass index (BMI) [Ratio] 43.56 kg/m2 Abdirahman Rutherford MD Work Phone: [facility] 07-21-2022 09:48-0400 Body temperature 97.81 [degF] Abdirahman Rutherford MD Work Phone: [facility] 07-21-2022 09:48-0400 Body weight 133.81 kg Abdirahman Rutherford MD Work Phone: [facility] 07-21-2022 09:48-0400 Respiratory rate 18 /min Abdirahman Rutherford MD Work Phone: [facility] 07-21-2022 09:48-0400 SaO2% (BldA) [Mass fraction] 96 % Abdirahman Rutherford MD Work Phone: [facility] 05-13-2022 08:59-0400 Body height 175.3 cm Fran Gaston MD Work Phone: [facility] 05-13-2022 08:59-0400 Body mass index (BMI) [Ratio] 42.83 kg/m2 Fran Gaston MD Work Phone: [facility] 05-13-2022 08:59-0400 Body temperature 96.91 [degF] Fran Gaston MD Work Phone: [facility] 05-13-2022 08:59-0400 Body weight 131.54 kg Fran Gaston MD Work Phone: [facility] 05-13-2022 08:59-0400 Heart rate 80 /min Fran Gaston MD Work Phone: [facility] 05-13-2022 08:59-0400 SaO2% (BldA) [Mass fraction] 97 % Fran Gaston MD Work Phone: [facility] 04-14-2022 08:36-0400 Body height 175.3 cm Abdirahman Rutherford MD Work Phone: [facility] 04-14-2022 08:36-0400 Body temperature 97.81 [degF] Abdirahman Rutherford MD Work Phone: [facility] 04-14-2022 08:36-0400 Diastolic blood pressure 83 mm[Hg] Abdirahman Rutherford MD Work Phone: [facility] 04-14-2022 08:36-0400 Heart rate 87 /min Abdirahman Rutherford MD Work Phone: [facility] 04-14-2022 08:36-0400 Respiratory rate 18 /min Abdirahman Rutherford MD Work Phone: [facility] 04-14-2022 08:36-0400 SaO2% (BldA) [Mass fraction] 96 % Abdirahman Rutherford MD Work Phone: [facility] 04-14-2022 08:36-0400 Systolic blood pressure 111 mm[Hg] Abdirahman Rutherfrod MD Work Phone: [facility] 03-30-2022 13:16-0400 Body height 175.3 cm Lonnie BOWEN Work Phone: 8(698)160-479354 [address] 03-30-2022 13:16-0400 Body mass index (BMI) [Ratio] 42.77 kg/m2 Lonnie Ring COREMAKER APPRENTICE-METHODS EXAMINER Work Phone: 5(342)256-316952 [place] [address] 03-30-2022 13:16-0400 Body temperature 97.5 [degF] Lonnie Ring COREMAKER APPRENTICE-METHODS EXAMINER Work Phone: 4(991)[phone] [place] [address] 03-30-2022 13:16-0400 Body weight 131.36 kg Lonnie Ring COREMAKER APPRENTICE-METHODS EXAMINER Work Phone: 9(076)666-141152 [place] [address] 03-30-2022 13:16-0400 Diastolic blood pressure 80 mm[Hg] Lonnie Ring COREMAKER APPRENTICE-METHODS EXAMINER Work Phone: 8(548)[phone] [place] [address] 03-30-2022 13:16-0400 Heart rate 110 /min Lonnie Ring COREMAKER APPRENTICE-METHODS EXAMINER Work Phone: 3(274)747-684352 [place] [address] 03-30-2022 13:16-0400 Respiratory rate 18 /min Lonnie Ring COREMAKER APPRENTICE-METHODS EXAMINER Work Phone: 1(590)298-599752 [place] [address] 03-30-2022 13:16-0400 SaO2% (BldA) [Mass fraction] 98 % Lonnie Ring COREMAKER APPRENTICE-METHODS EXAMINER Work Phone: 3(854)[phone] [place] [address] 03-30-2022 13:16-0400 Systolic blood pressure 120 mm[Hg] Lonnie Ring COREMAKER APPRENTICE-METHODS EXAMINER Work Phone: 2(617)332-145852 [place] [address] 02-21-2022 18:09-0400 Body height 177.8 cm [facility] Work Phone: 02-21-2022 18:09-0400 Body mass index (BMI) [Ratio] 41.5 kg/m2 [facility] Work Phone: 02-21-2022 18:09-0400 Body temperature 97.4 [degF] [facility] Work Phone: 02-21-2022 18:09-0400 Body weight 131.54 kg [facility] Work Phone: 02-21-2022 18:09-0400 Diastolic blood pressure 82 mm[Hg] [facility] Work Phone: 02-21-2022 18:09-0400 Heart rate 86 /min [facility] Work Phone: 02-21-2022 18:09-0400 Respiratory rate 15 /min [facility] Work Phone: 02-21-2022 18:09-0400 SaO2% (BldA) [Mass fraction] 98 % [facility] Work Phone: 02-21-2022 18:09-0400 Systolic blood pressure 147 mm[Hg] [facility] Work Phone: 01-31-2022 15:07-0400 Body height 175.3 cm Lonnie Ring COREMAKER APPRENTICE-METHODS EXAMINER Work Phone: [facility] 01-31-2022 15:07-0400 Body mass index (BMI) [Ratio] 44.75 kg/m2 Lonnie Ring COREMAKER APPRENTICE-METHODS EXAMINER Work Phone: [facility] 01-31-2022 15:07-0400 Body temperature 98.29 [degF] Lonnie Ring COREMAKER APPRENTICE-METHODS EXAMINER Work Phone: [facility] 01-31-2022 15:07-0400 Body weight 137.44 kg Lonnie Ring COREMAKER APPRENTICE-METHODS EXAMINER Work Phone: [facility] 01-31-2022 15:07-0400 Diastolic blood pressure 74 mm[Hg] Lonnie Ring COREMAKER APPRENTICE-METHODS EXAMINER Work Phone: [facility] 01-31-2022 15:07-0400 Heart rate 72 /min Lonnie [facility] COREMAKER APPRENTICE-METHODS EXAMINER Work Phone: [facility] 01-31-2022 15:07-0400 SaO2% (BldA) [Mass fraction] 99 % [facility] COREMAKER APPRENTICE-METHODS EXAMINER Work Phone: [facility] 01-31-2022 15:07-0400 Systolic blood pressure 106 mm[Hg] Lonnie [facility] COREMAKER APPRENTICE-METHODS EXAMINER Work Phone: [facility] 01-27-2022 08:11-0400 Body height 175.3 cm Fran Gaston MD Work Phone: [facility] 01-27-2022 08:11-0400 Body mass index (BMI) [Ratio] 44.01 kg/m2 Fran Gaston MD Work Phone: [facility] 01-27-2022 08:11-0400 Body temperature 97 [degF] Fran Gaston MD Work Phone: [facility] 01-27-2022 08:11-0400 Body weight 135.17 kg Fran Gaston MD Work Phone: [facility] 01-13-2022 14:56-0400 Body mass index (BMI) [Ratio] 43.2 kg/m2 [facility] Work Phone: 01-13-2022 14:56-0400 Body temperature 97 [degF] [facility] Work Phone: 01-13-2022 14:56-0400 Body weight 133 kg [facility] Work Phone: 01-13-2022 14:56-0400 Diastolic blood pressure 97 mm[Hg] [facility] Work Phone: 01-13-2022 14:56-0400 Heart rate 88 /min [facility] Work Phone: 01-13-2022 14:56-0400 Respiratory rate 16 /min [facility] Work Phone: 01-13-2022 14:56-0400 SaO2% (BldA) [Mass fraction] 99 % [facility] Work Phone: 01-13-2022 14:56-0400 Systolic blood pressure 135 mm[Hg] [facility] Work Phone: 01-06-2022 20:04-0400 Diastolic blood pressure 90 mm[Hg] [facility] Work Phone: 01-06-2022 20:04-0400 Heart rate 97 /min [facility] Work Phone: 01-06-2022 20:04-0400 Respiratory rate 18 /min [facility] Work Phone: 01-06-2022 20:04-0400 Systolic blood pressure 158 mm[Hg] [facility] Work Phone: 01-06-2022 19:22-0400 Body height 175.26 cm [facility] Work Phone: 01-06-2022 19:22-0400 Body mass index (BMI) [Ratio] 45.3 kg/m2 [facility] Work Phone: 01-06-2022 19:22-0400 Body temperature 97.3 [degF] [facility] Work Phone: 01-06-2022 19:22-0400 Body weight 139.3 kg [facility] Work Phone: 01-06-2022 19:22-0400 SaO2% (BldA) [Mass fraction] 99 % [facility] Work Phone: 12-14-2021 19:06-0500 Respiratory rate 16 /min [facility] Work Phone: 12-14-2021 18:35-0500 Body mass index (BMI) [Ratio] 42 kg/m2 [facility] Work Phone: 12-14-2021 18:35-0500 Body temperature 97 [degF] [facility] Work Phone: 12-14-2021 18:35-0500 Body weight 129.27 kg [facility] Work Phone: 12-14-2021 18:35-0500 Diastolic blood pressure 107 mm[Hg] [facility] Work Phone: 12-14-2021 18:35-0500 Heart rate 101 /min [facility] Work Phone: 12-14-2021 18:35-0500 SaO2% (BldA) [Mass fraction] 98 % [facility] Work Phone: 12-14-2021 18:35-0500 Systolic blood pressure 142 mm[Hg] [facility] Work Phone: 11-23-2021 19:54-0500 Body mass index (BMI) [Ratio] 43.1 kg/m2 [facility] Work Phone: 11-23-2021 19:54-0500 Body temperature 97.4 [degF] [facility] Work Phone: 11-23-2021 19:54-0500 Body weight 132.44 kg [facility] Work Phone: 11-23-2021 19:54-0500 Diastolic blood pressure 95 mm[Hg] [facility] Work Phone: 11-23-2021 19:54-0500 Heart rate 97 /min [facility] Work Phone: 11-23-2021 19:54-0500 Respiratory rate 16 /min [facility] Work Phone: 11-23-2021 19:54-0500 SaO2% (BldA) [Mass fraction] 98 % [facility] Work Phone: 11-23-2021 19:54-0500 Systolic blood pressure 141 mm[Hg] [facility] Work Phone: 11-20-2021 19:35-0500 Body mass index (BMI) [Ratio] 43.1 kg/m2 [facility] Work Phone: 11-20-2021 19:35-0500 Body temperature 97 [degF] [facility] Work Phone: 11-20-2021 19:35-0500 Body weight 132.44 kg [facility] Work Phone: 11-20-2021 19:35-0500 Diastolic blood pressure 94 mm[Hg] [facility] Work Phone: 11-20-2021 19:35-0500 Heart rate 99 /min [facility] Work Phone: 11-20-2021 19:35-0500 Respiratory rate 18 /min [facility] Work Phone: 11-20-2021 19:35-0500 SaO2% (BldA) [Mass fraction] 97 % [facility] Work Phone: 11-20-2021 19:35-0500 Systolic blood pressure 132 mm[Hg] [facility] Work Phone: 10-08-2021 19:15-0500 Body temperature 98.4 [degF] [facility] Work Phone: 10-08-2021 19:15-0500 Diastolic blood pressure 76 mm[Hg] [facility] Work Phone: 10-08-2021 19:15-0500 Heart rate 88 /min [facility] Work Phone: 10-08-2021 19:15-0500 Respiratory rate 18 /min [facility] Work Phone: 10-08-2021 19:15-0500 SaO2% (BldA) [Mass fraction] 96 % [facility] Work Phone: 10-08-2021 19:15-0500 Systolic blood pressure 138 mm[Hg] [facility] Work Phone: 10-08-2021 18:02-0500 Body mass index (BMI) [Ratio] 42.8 kg/m2 [facility] Work Phone: 10-08-2021 18:02-0500 Body weight 131.54 kg [facility] Work Phone: 09-30-2021 14:26-0500 Body mass index (BMI) [Ratio] 42.8 kg/m2 [facility] Work Phone: 09-30-2021 14:26-0500 Body temperature 97.6 [degF] [facility] Work Phone: 09-30-2021 14:26-0500 Body weight 131.54 kg [facility] Work Phone: 09-30-2021 14:26-0500 Diastolic blood pressure 73 mm[Hg] [facility] Work Phone: 09-30-2021 14:26-0500 Heart rate 97 /min [facility] Work Phone: 09-30-2021 14:26-0500 Respiratory rate 18 /min [facility] Work Phone: 09-30-2021 14:26-0500 SaO2% (BldA) [Mass fraction] 95 % [facility] Work Phone: 09-30-2021 14:26-0500 Systolic blood pressure 123 mm[Hg] [facility] Work Phone: 09-21-2021 14:12-0500 Body mass index (BMI) [Ratio] 39.6 kg/m2 [facility] Work Phone: 09-21-2021 14:12-0500 Body temperature 96.3 [degF] [facility] Work Phone: 09-21-2021 14:12-0500 Body weight 128.82 kg [facility] Work Phone: 09-21-2021 14:12-0500 Diastolic blood pressure 104 mm[Hg] [facility] Work Phone: 09-21-2021 14:12-0500 Heart rate 93 /min [facility] Work Phone: 09-21-2021 14:12-0500 Respiratory rate 18 /min [facility] Work Phone: 09-21-2021 14:12-0500 SaO2% (BldA) [Mass fraction] 97 % [facility] Work Phone: 09-21-2021 14:12-0500 Systolic blood pressure 143 mm[Hg] [facility] Work Phone: Encounters Encounter Date Encounter Type Care Provider Facility Start: 03-27-2025 ambulatory FRAN GASTON Facility: [facility] Start: 02-10-2025 End: 02-10-2025 ambulatory Katia Belle Facility:[facility] Start: 01-23-2025 ambulatory FRAN GASTON Facility: [facility] Start: 01-23-2025 End: 01-23-2025 Subsequent hospital visit by physician Fran Gaston MD Work Phone: [facility] Comment on above: Arrived Start: 01-23-2025 ambulatory POLO MEREDITH Facility: [facility] Start: 01-16-2025 End: 01-16-2025 Office outpatient visit 15 minutes Abdirahman Rutherford MD Work Phone: [facility] Comment on above: TTP (thrombotic thro mbocytopenic purpura) (Primary Dx) Start: 01-16-2025 ambulatory ABDIRAHMAN Benoit ty:[facility] Start: 11-30-2024 End: 11-30-2024 Emergency department patient visit Katia Lopezlay Facility:[facility] Start: 11-16-2024 End: 11-16-2024 Emergency department patient visit Ivon Osoriojeanie Facility:[facility] Start: 10-29-2024 End: 10-29-2024 ambulatory Katia Belle Facility:[facility] Start: 09-26-2024 End: 09-26-2024 Office outpatient visit 15 minutes Abdirahman Rutherford MD Work Phone: [facility] Comment on above: TTP (thrombotic thro mbocytopenic purpura) (Primary Dx) Start: 09-26-2024 ambulatory ABDIRAHMAN RUTHERFORD Facili ty:[facility] Start: 09-04-2024 End: 09-04-2024 Emergency department patient visit Katia Hawthorne Facility:[facility] Start: 08-02-2024 End: 08-02-2024 Emergency department patient visit Katia Yoshi Facility:[facility] Start: 07-30-2024 ambulatory [place] Yoshi [place] [place]: 07-30-2024 End: 07-30-2024 ambulatory Katia Hawthorne [place] Start: 07-30-2024 End: 07-30-2024 ambulatory Katia Hawthorne Facility:[facility] Start: 05-21-2024 End: 05-21-2024 Emergency department patient visit El Churchill Facility:[facility] Start: 05-13-2024 ambulatory JOVANY ISERRA Facility:[facility] Start: 05-13-2024 End: 05-13-2024 Patient encounter procedure Monique Tnaner MD Work Phone: [facility] Comment on above: Rotator cuff syndrom e of right shoulder (Primary Dx); Calcific tendinitis Start: 05-09-2024 ambulatory Katia Hawthorne Facility :[facility] Start: 04-11-2024 End: 04-11-2024 Office outpatient new 30 minutes Jovany Sierra MD Work Phone: Sports Medicine [facility] Comment on above: Rotator cuff syndrom e of right shoulder (Primary Dx) Start: 04-11-2024 ambulatory JOVANY SIERRA Facility:[facility] Start: 04-10-2024 End: 04-10-2024 Emergency department patient visit Katia Hawthorne Facility:[facility] Start: 03-19-2024 End: 03-19-2024 Emergency department patient visit Ashok Norton Facility:[facility] Start: 03-17-2024 End: 03-17-2024 Emergency department patient visit IZABELA TURNER [facility] Comment on above: Cellulitis of buttoc k (Primary Dx) Start: 03-13-2024 End: 03-13-2024 ambulatory No Primary Care Physician [place] [place] Start: 03-13-2024 End: 03-13-2024 ambulatory Katia Yoshi Facility:[facility] Start: 03-10-2024 ambulatory No Primary Car e Physician [place] [place] Start: 03-10-2024 End: 03-10-2024 Emergency department patient visit Sam Velasco Facility:[facility] Start: 03-08-2024 End: 03-09-2024 Emergency department patient visit No Primary Care Physician Facility:[facility] Start: 03-02-2024 End: 03-03-2024 Emergency department patient visit No Primary Care Physician Facility:[facility] Start: 02-28-2024 End: 02-28-2024 ambulatory No Primary Care Physician [place] [place] Start: 02-25-2024 End: 02-25-2024 Emergency department patient visit Lois Clifford DO Work Phone: [facility] Comment on above: Hyperglycemia Start: 02-23-2024 End: 02-23-2024 ambulatory No Primary Care Physician Facility:[facility] Start: 02-23-2024 End: 02-23-2024 Evaluation and management of inpatient No Primary Care Physician [facility] Work Phone: Start: 02-23-2024 Evaluation and manag ement of inpatient No Primary Care Physician [facility] Work Phone: Start: 02-22-2024 End: 02-23-2024 Emergency department patient visit No Primary Care Physician [facility] Work Phone: Start: 02-15-2024 End: 02-15-2024 Office outpatient visit 25 minutes Edilia Robles APRN-JARRETT Work Phone: [facility] Comment on above: TTP (thrombotic thro mbocytopenic purpura) (Primary Dx); Bilateral shoulder pain, unspecified chronicity; Encounter for routine dental examination Start: 02-15-2024 End: 02-15-2024 Patient encounter status Edilia Robles COREMAKER APPRENTICE-METHODS EXAMINER Work Phone: [facility] Start: 01-12-2024 End: 01-12-2024 Office outpatient new 30 minutes Noble Licona MD Work Phone: [facility] Comment on above: Bilateral shoulder p ain, unspecified chronicity (Primary Dx) Start: 01-12-2024 End: 01-12-2024 Subsequent hospital visit by physician Noble Licona MD Work Phone: [facility] Comment on above: Arrived Start: 01-04-2024 End: 01-05-2024 Office outpatient visit 15 minutes Abdirahman Rutherford MD Work Phone: [facility] Comment on above: TTP (thrombotic thro mbocytopenic purpura) (Primary Dx) Start: 12-31-2023 End: 12-31-2023 Emergency department patient visit POLO MELLO Facility:[facility] Start: 12-24-2023 End: 12-24-2023 Emergency department patient visit MAINOR EWING [facility] Start: 12-23-2023 End: 12-23-2023 Emergency department patient visit No Primary Care Physician [facility] Work Phone: Start: 12-12-2023 End: 12-12-2023 Emergency department patient visit No Primary Care Physician [facility] Work Phone: Start: 12-01-2023 End: 12-01-2023 Patient encounter procedure No Primary Care Physician [facility] Work Phone: Start: 11-30-2023 End: 11-30-2023 Emergency department patient visit [facility] Work Phone: Start: 11-27-2023 End: 11-27-2023 Emergency department patient visit TOD ARROYO MD Facility: Start: 11-27-2023 End: 11-27-2023 Emergency department patient visit TOD ARROYO MD [facility] Start: 11-16-2023 End: 11-16-2023 Office outpatient visit 15 minutes Abdirahman Rutherford MD Work Phone: [facility] Comment on above: TTP (thrombotic thro mbocytopenic purpura) (Primary Dx) Start: 11-10-2023 End: 11-10-2023 Emergency department patient visit [facility] Work Phone: Start: 11-03-2023 End: 11-03-2023 Emergency department patient visit CELINEFL RANJITH EWING Facility:[facility] Start: 11-03-2023 End: 11-03-2023 [facility] Start: 10-29-2023 End: 10-29-2023 Emergency department patient visit [facility] Work Phone: Start: 09-16-2023 End: 09-16-2023 Emergency department patient visit Ok Adler DO Work Phone: [facility] Comment on above: Gluteal abscess (Corrine arnold Dx) Start: 09-15-2023 End: 09-15-2023 Emergency department patient visit NO ASSIGNED PCP GENERIC PROVIDER [facility] Start: 05-23-2023 End: 05-23-2023 Emergency department patient visit [facility] Work Phone: Start: 02-13-2023 End: 02-13-2023 Office outpatient visit 15 minutes Sonido Dyer [facility] Work Phone: [facility] [place] Comment on above: Type 2 diabetes ton itus without complication, with long-term current use of insulin (Primary Dx) Start: 01-23-2023 End: 01-24-2023 Emergency department patient visit [facility] Start: 01-19-2023 End: 01-19-2023 Subsequent hospital visit by physician Memo Saab MD Work Phone: [facility] Comment on above: Canceled (Cancel Summer son Not Listed - Please provide detailed information) Start: 10-27-2022 End: 10-27-2022 Patient encounter status Lonnie Ring COREMAKER APPRENTICE-METHODS EXAMINER Work Phone: [facility] Start: 10-27-2022 End: 10-27-2022 Periodic preventive med est patient 40-64yrs Lonnie Ring COREMAKER APPRENTICE-METHODS EXAMINER Work Phone: Primary [facility] Comment on above: Well adult exam (Corrine arnold Dx); Carpal tunnel syndrome of right wrist; Housing instability; Food insecurity; Type 2 diabetes mellitus without complication, with long-term current use of insulin; Anxiety and depression; PTSD (post-traumatic stress disorder); Insertional Achilles tendinopathy; TTP (thrombotic thrombocytopenic purpura); Need for Tdap vaccination Start: 10-27-2022 End: 10-27-2022 Office outpatient visit 15 minutes Abdirahman Rutherford MD Work Phone: Division of Hematology & Oncology Comment on above: TTP (thrombotic thro mbocytopenic purpura) (Primary Dx) Start: 10-18-2022 End: 10-18-2022 Emergency department patient visit [facility] Start: 10-09-2022 End: 10-09-2022 Emergency department patient visit [facility] Start: 10-06-2022 End: 10-06-2022 Subsequent hospital visit by physician Shira Cota DPM Work Phone: Imaging [facility] Comment on above: Arrived Start: 09-16-2022 End: 09-22-2022 Office outpatient visit 15 minutes Shira Cota DPM Work Phone: [facility] [place] Comment on above: Insertional Achilles tendinopathy (Primary Dx); Other chronic pain; Chronic heel pain, right; Chronic heel pain, left Insertional Achilles tendinopathy (Primary Dx); Other chronic pain; Chronic heel pain, right; Chronic heel pain, left; Encounter for diabetic foot exam; Hammertoe, bilateral Start: 07-21-2022 End: 07-21-2022 Office outpatient visit 15 minutes Abdirahman Rutherford MD Work Phone: Division of Hematology & Oncology Comment on above: TTP (thrombotic thro mbocytopenic purpura) (Primary Dx); Type 2 diabetes mellitus without complication, with long-term current use of insulin; Encounter for follow-up Start: 05-13-2022 End: 05-13-2022 Office outpatient visit 25 minutes Fran Gaston MD Work Phone: [facility] Comment on above: Myalgia (Primary Dx) ; Class 3 severe obesity due to excess calories with body mass index (BMI) of 40.0 to 44.9 in adult, unspecified whether serious comorbidity present; Chronic bilateral low back pain without sciatica; Cervicalgia; Muscle spasm of back Start: 05-12-2022 End: 05-12-2022 Office outpatient visit 15 minutes Shira Cota DPM Work Phone: [facility] [place] Comment on above: Insertional Achilles tendinopathy (Primary Dx); Retrocalcaneal exostosis; Postcalcaneal bursitis of right foot; Bilateral foot pain Start: 04-14-2022 End: 04-14-2022 Office outpatient visit 15 minutes Abdirahman Rutherford MD Work Phone: Division of Hematology & Oncology Comment on above: TTP (thrombotic thro mbocytopenic purpura) (Primary Dx) Start: 03-30-2022 End: 04-06-2022 Office outpatient visit 15 minutes Lonnie BOWEN Work Phone: [facility] [place] Comment on above: Type 2 diabetes ton itus without complication, with long-term current use of insulin (Primary Dx); Chronic bilateral low back pain with left-sided sciatica; Insertional Achilles tendinopathy; Postcalcaneal bursitis of right foot Start: 02-21-2022 End: 02-21-2022 Emergency department patient visit [facility] Start: 02-08-2022 End: 02-08-2022 Subsequent hospital visit by physician Shira Cota DPM Work Phone: [facility] [place] Comment on above: Arrived Start: 02-08-2022 End: 02-08-2022 Office consultation new/estab patient 60 min Shira Cota DPVaishnavi Work Phone: [facility] [place] Comment on above: Retrocalcaneal exost osis (Primary Dx); Insertional Achilles tendinopathy; Bilateral foot pain; Postcalcaneal bursitis of right foot Start: 01-31-2022 End: 01-31-2022 Office outpatient visit 15 minutes Lonnie Ring APRN-METHODS EXAMINER Work Phone: [facility] [place] Comment on above: Chronic bilateral lo w back pain with left-sided sciatica (Primary Dx) Start: 01-27-2022 End: 01-27-2022 Subsequent hospital visit by physician Fran Gaston MD Work Phone: [facility] Comment on above: Arrived Start: 01-27-2022 End: 01-27-2022 Office consultation new/estab patient 60 min Fran Gaston MD Work Phone: [facility] Comment on above: Myalgia (Primary Dx) ; Chronic bilateral low back pain with left-sided sciatica; Strain of lumbar region, initial encounter; Class 3 severe obesity due to excess calories with body mass index (BMI) of 40.0 to 44.9 in adult, unspecified whether serious comorbidity present Start: 01-13-2022 End: 01-13-2022 Emergency department patient visit [facility] Start: 01-06-2022 End: 01-06-2022 Emergency department patient visit [facility] Start: 12-14-2021 End: 12-14-2021 Emergency department patient visit [facility] Start: 11-23-2021 End: 11-23-2021 Emergency department patient visit [facility] Start: 11-20-2021 End: 11-20-2021 Emergency department patient visit [facility] Start: 10-08-2021 End: 10-08-2021 Emergency department patient visit [facility] Start: 09-30-2021 End: 09-30-2021 Emergency department patient visit [facility] Start: 09-29-2021 Patient encounter procedure [facility]Radiology, [facility] Start: 09-21-2021 End: 09-21-2021 Emergency department patient visit [facility] Procedures Date Procedure Procedure Detail Performing Clinician Start: 01-23-2025 Radex spine cervical 4 or 5 views Fran Gaston MD Work Phone: Start: 01-16-2025 CBC AND ELECTRONIC DIFF Chana Robles COREMAKER APPRENTICE-METHODS EXAMINER Work Phone: Start: 01-16-2025 Complete blood count with white cell differential, automated Chana Robles COREMAKER APPRENTICE-METHODS EXAMINER Work Phone: Start: 01-16-2025 Comprehensive metabo lic panel Chana Robles COREMAKER APPRENTICE-METHODS EXAMINER Work Phone: Start: 09-26-2024 CBC AND ELECTRONIC DIFF Abdirahman Rutherford MD Work Phone: Start: 09-26-2024 Complete blood count with white cell differential, automated Abdirahman Rutherford MD Work Phone: Start: 09-26-2024 Comprehensive metabo lic panel Abdirahman Rutherford MD Work Phone: Start: 05-13-2024 US Unspecified body region Monique Tanner MD Work Phone: Start: 05-13-2024 Injection single ten don origin/insertion Monique Tanner MD Work Phone: Start: 02-25-2024 Glucose measurement, blood Jim Robbins MD Work Phone: Start: 02-25-2024 Glucose measurement, blood Jim Robbins MD Work Phone: Start: 02-25-2024 EXTRA MICRO Geovanna Vaishnavi Eileen esparza COREMAKER APPRENTICE-METHODS EXAMINER Work Phone: Start: 02-25-2024 URINALYSIS REFLEX TO CULTURE Geovanna Vaishnavi Parrish COREMAKER APPRENTICE-METHODS EXAMINER Work Phone: Start: 02-25-2024 Urnls dip stick/tabl et reagent auto microscopy Geovanna Senior COREMAKER APPRENTICE-METHODS EXAMINER Work Phone: Start: 02-25-2024 Glucose measurement, blood Jin Koch MD Work Phone: Start: 02-25-2024 Radiologic exam ches t single view Geovanna Senior COREMAKER APPRENTICE-METHODS EXAMINER Work Phone: Start: 02-25-2024 Glucose measurement, blood Loisliana Clifford DO Work Phone: Start: 02-25-2024 Blood gases any combination ph [id number] co2 [id number] Mary Capone MD Work Phone: Start: 02-25-2024 CBC AND ELECTRONIC DIFF Mary Capone MD Work Phone: Start: 02-25-2024 Complete blood count with white cell differential, automated Mary Capone MD Work Phone: Start: 02-25-2024 GOLD TOP TUBE Mary Capone MD Work Phone: Start: 02-25-2024 Hemoglobin glycosyla yuki a1c Jim Robbins MD Work Phone: Start: 02-25-2024 LAVENDER TOP TUBE Didier Capone MD Work Phone: Start: 02-25-2024 LT BLUE TOP TUBE Cori Capone MD Work Phone: Start: 02-25-2024 MINT GREEN TOP TUBE Ivy Capone MD Work Phone: Start: 02-25-2024 RAINBOW DRAW Mary Capone MD Work Phone: Start: 02-25-2024 Glucose measurement, blood Other Other OT Start: 02-15-2024 CBC AND ELECTRONIC DIFF Abdirahman Rutherford MD Work Phone: Start: 02-15-2024 Complete blood count with white cell differential, automated Abdirahman Rutherford MD Work Phone: Start: 02-15-2024 Lactate dehydrogenase ldh Abdirahman Rutherford MD Work Phone: Start: 01-12-2024 End: 01-12-2024 Radex shoulder complete minimum 2 views Noble Licona MD Work Phone: Start: 01-04-2024 C-reactive protein Katrina Rutherford MD Work Phone: Start: 01-04-2024 CBC AND ELECTRONIC DIFF Edilia Cejao COREMAKER APPRENTICE-METHODS EXAMINER Work Phone: Start: 01-04-2024 Complete blood count with white cell differential, automated Edilia Robles COREMAKER APPRENTICE-METHODS EXAMINER Work Phone: Start: 01-04-2024 Comprehensive metabo lic panel Edilia Robles COREMAKER APPRENTICE-METHODS EXAMINER Work Phone: Start: 12-01-2023 X-ray of cervical spine No Primary Care Physician Start: 11-16-2023 [id number] ACTIVITY AN D IGG AB W/REFLEX TO INHIBITOR Abdirahman Rutherford MD Work Phone: Start: 11-16-2023 CBC AND ELECTRONIC DIFF Abdirahman Rutherford MD Work Phone: Start: 11-16-2023 Complete blood count with white cell differential, automated Abdirahman Rutherford MD Work Phone: Start: 11-16-2023 Lactate dehydrogenase ldh Abdirahman Rutherford MD Work Phone: Start: 11-10-2023 Plain X-ray of shoulder Start: 09-16-2023 Incision & drainage abscess simple/single Ok Mudrakola DO Work Phone: Start: 05-23-2023 CT of abdomen and pe lvis without contrast Start: 02-13-2023 Hemoglobin glycosyla yuki a1c Lonnie Ring COREMAKER APPRENTICE-METHODS EXAMINER Work Phone: Start: 10-27-2022 CBC AND ELECTRONIC DIFF Abdirahman Rutherford MD Work Phone: Start: 10-27-2022 Complete blood count with white cell differential, automated Abdirahman Rutherford MD Work Phone: Start: 10-27-2022 Lactate dehydrogenase ldh Abdirahman Rutherford MD Work Phone: Start: 10-06-2022 Mri any jt lower ext rem w/o contrast matrl Mark Smith DPM Work Phone: Start: 07-21-2022 CBC AND ELECTRONIC DIFF Abdirahman Rutherford MD Work Phone: Start: 07-21-2022 Complete blood count with white cell differential, automated Abdirahman Rutherford MD Work Phone: Start: 07-21-2022 Hemoglobin glycosyla yuki a1c Lonnie Ring COREMAKER APPRENTICE-METHODS EXAMINER Work Phone: Start: 07-21-2022 Lipid panel Lonnie tinoco COREMAKER APPRENTICE-METHODS EXAMINER Work Phone: Start: 04-14-2022 CBC AND ELECTRONIC DIFF Abdirahman Rutherford MD Work Phone: Start: 04-14-2022 Complete blood count with white cell differential, automated Abdirahman Rutherford MD Work Phone: Start: 04-14-2022 Lactate dehydrogenase ldh Abdirahman Rutherford MD Work Phone: Start: 03-30-2022 Hemoglobin glycosyla yuki a1c Lonnie Ring COREMAKER APPRENTICE-METHODS EXAMINER Work Phone: Start: 02-08-2022 Radex foot complete minimum 3 views Serge Murdock DPM Work Phone: Start: 01-27-2022 Radex spine lumbosac ral minimum 4 views Fran Gaston MD Work Phone: Start: 01-13-2022 X-ray of cervical spine Start: 12-14-2021 Plain x-ray of hand Start: 11-23-2021 X-ray of lumbar spin e, two or three views Start: 09-30-2021 CT cervical spine wi thout contrast Start: 09-30-2021 CT of head without contrast Start: 09-29-2021 Radiography of foot Start: 09-21-2021 Plain X-ray of tibia and fibula Start: 09-21-2021 Radiography of ankle Cardiac tamponade (disorder) CHINYERE KASPER DO Ophthalmic surgery (qualifier value) CHINYERE Avenger NetworksCarlos DO Plan of Treatment Date Care Activity Detail Author Start: 2041 RSV Immunization aged 60 or older (1 - 1-dose 60+ series) RSV Immunization aged 60 or older (1 - 1-dose 60+ series) [facility] Start: 10-27-2032 DTaP/Tdap/Td Vaccines (3 - Td or Tdap) DTaP/Tdap/Td Vaccines (3 - Td or Tdap) [facility] Start: 10-27-2032 Tetanus vaccination TETANUS [facility] Start: 2031 Zoster Vaccines (1 of 2) Zoster Vaccines (1 of 2) [facility] Start: 06-16-2025 Influenza vaccination INFLUENZA VACCINE (Season Ended) [facility] Start: 05-01-2025 End: 05-01-2025 Patient encounter procedure 05/01/2025 8:50 AM EDT Office Visit [facility] [address] [place] [phone] Fran Gaston MD [address] [place] [phone] [facility] Start: 04-24-2025 End: 04-24-2025 Patient encounter procedure 04/24/2025 8:00 AM EDT Office [facility] [address] [place] [address] Abdirahman Rutherford MD [address] [facility] [address] [place] [address] [facility] Start: 03-27-2025 Hemoglobin A1c measurement HBA1C TEST [facility] Start: 01-23-2025 End: 01-23-2025 Patient encounter procedure 01/23/2025 9:10 AM EDT Office Visit [facility] [address] [place] [address] Fran Gaston MD [address] [place] [address] [facility] Start: 01-16-2025 End: 01-16-2025 Patient encounter procedure 01/16/2025 10:30 AM EDT Office Visit [facility] [address] [place] [phone] Abdirahman Rutherford MD [address] [facility] [address] [place] [address] [facility] Start: 01-14-2025 End: 01-18-2025 [id number] ACTIVITY AND IGG AB W/REFLEX TO INHIBITOR [id number] ACTIVITY AND IGG AB W/REFLEX TO INHIBITOR Lab Routine TTP (thrombotic thrombocytopenic purpura) Expected: 01/14/2025, Expires: 01/18/2025 [facility] Comment on above: Expected: 01/14/2025, Expires: 5 Start: 01-14-2025 End: 01-14-2026 BLOOD, RESEARCH BLOOD, RESEARCH Lab Routine TTP (thrombotic thrombocytopenic purpura) Expected: 01/14/2025, Expires: 01/14/2026 [facility] Comment on above: Expected: 01/14/2025, Expires: 6 Start: 10-25-2024 End: 10-25-2024 Patient encounter procedure 10/25/2024 8:50 AM EST Office Visit [facility] [address] [place] [address] Fran Gaston MD [address] [place] [address] [facility] Start: 09-26-2024 End: 09-25-2025 BLOOD, RESEARCH BLOOD, RESEARCH Lab Routine TTP (thrombotic thrombocytopenic purpura) Expected: 09/26/2024, Expires: 09/25/2025 [facility] Comment on above: Expected: 09/26/2024, Expires: Start: 09-25-2024 End: 09-25-2025 [id number] ACTIVITY AND IGG AB W/REFLEX TO INHIBITOR [id number] ACTIVITY AND IGG AB W/REFLEX TO INHIBITOR Lab Routine TTP (thrombotic thrombocytopenic purpura) Expected: 09/25/2024, Expires: 09/25/2025 [facility] Comment on above: Expected: 09/25/2024, Expires: Start: 09-25-2024 End: 09-25-2025 BLOOD, RESEARCH BLOOD, RESEARCH Lab Routine TTP (thrombotic thrombocytopenic purpura) Expected: 09/25/2024, Expires: 09/25/2025 [facility] Comment on above: Expected: 09/25/2024, Expires: Start: 08-27-2024 Hemoglobin A1c measurement HBA1C TEST [facility] Start: 07-06-2024 Hemoglobin A1c measurement HBA1C TEST [facility] Start: 06-16-2024 COVID-19 VACCINE ( season) COVID-19 VACCINE ( season) [facility] Start: 06-16-2024 Influenza vaccination [facility] Start: 05-16-2024 End: 05-16-2024 Patient encounter procedure 05/16/2024 8:40 AM EDT Office Visit [facility] [address] [place] [phone] Edilia Robles, COREMAKER APPRENTICE-METHODS EXAMINER [address] [place] [address] [facility] Start: 05-13-2024 End: 05-13-2024 Patient encounter procedure 05/13/2024 8:30 AM EDT Office Visit [facility] [place] [address] [place] [phone] Monique Tanner MD [address] [place] [phone] [facility] [place] Start: 02-24-2024 [facility] Start: 02-23-2024 Patient discharge [facility] Start: 02-23-2024 Care planning and problem solving actions [facility] Start: 02-23-2024 Application of intermittent pneumatic compression device [facility] Start: 02-23-2024 Following clinical pathway protocol [facility] Start: 02-23-2024 Assessment of risk of venous thromboembolism [facility] Start: 02-23-2024 Continuous pulse oximetry [facility] Start: 02-23-2024 Documentation procedure [facility] Start: 02-23-2024 Elevation of head of bed [facility] Start: 02-23-2024 Insertion of catheter into peripheral vein [facility] Start: 02-23-2024 Measuring intake and output [facility] Start: 02-23-2024 Oxygen therapy [facility] Start: 02-23-2024 Patient referral to dietitian [facility] Start: 02-23-2024 Providing care according to standard [facility] Start: 02-23-2024 Referral to service [facility] Start: 02-23-2024 Vital signs measurements [facility] Start: 02-23-2024 [facility] Start: 02-23-2024 Verification routine [facility] Start: 02-23-2024 Admission procedure [facility] Start: 02-23-2024 Thyroid stimulating hormone measurement [facility] Start: 02-23-2024 [facility] Start: 02-23-2024 Hospital admission, emergency, from emergency room, medical nature [facility] Start: 02-23-2024 Verification routine [facility] Start: 02-23-2024 Admission procedure [facility] Start: 02-15-2024 End: 02-15-2024 Patient encounter procedure 02/15/2024 8:40 AM EDT Office Visit [facility] [address] [place] [phone] Edilia Robles, COREMAKER APPRENTICE-METHODS EXAMINER [address] [place] [address] [facility] Start: 02-14-2024 End: 02-13-2025 [id number] ACTIVITY AND IGG AB W/REFLEX TO INHIBITOR [id number] ACTIVITY AND IGG AB W/REFLEX TO INHIBITOR Lab Routine TTP (thrombotic thrombocytopenic purpura) Expected: 02/14/2024, Expires: 02/13/2025 [facility] Comment on above: Expected: 02/14/2024, Expires: Start: 01-12-2024 End: 01-12-2024 Patient encounter procedure 01/12/2024 10:15 AM EDT Office Visit [facility] [address] [place] [address] Noble Licona MD [address] [place] [address] [facility] Start: 01-05-2024 End: 01-04-2025 SEDIMENTATION RATE, AUTOMATED SEDIMENTATION RATE, AUTOMATED Lab Routine TTP (thrombotic thrombocytopenic purpura) Expected: 01/05/2024, Expires: 01/04/2025 [facility] Comment on above: Expected: 01/05/2024, Expires: Start: 01-03-2024 End: 01-02-2025 BLOOD, RESEARCH BLOOD, RESEARCH Lab Routine TTP (thrombotic thrombocytopenic purpura) Expected: 01/03/2024, Expires: 01/02/2025 [facility] Comment on above: Expected: 01/03/2024, Expires: Start: 01-02-2024 End: 01-01-2025 [id number] ACTIVITY AND IGG AB W/REFLEX TO INHIBITOR [id number] ACTIVITY AND IGG AB W/REFLEX TO INHIBITOR Lab Routine TTP (thrombotic thrombocytopenic purpura) Expected: 01/02/2024, Expires: 01/01/2025 [facility] Work Phone: Comment on above: Expected: 01/02/2024, Expires: Start: 12-23-2023 [facility] Start: 12-12-2023 [facility] Start: 11-30-2023 [facility] Start: 11-16-2023 End: 11-15-2024 BLOOD, RESEARCH BLOOD, RESEARCH Lab Routine TTP (thrombotic thrombocytopenic purpura) Expected: 11/16/2023, Expires: 11/15/2024 [facility] Comment on above: Expected: 11/16/2023, Expires: 5 Start: 11-16-2023 End: 11-15-2024 URINE PROTEIN/CREA RATIO, RANDOM URINE PROTEIN/CREA RATIO, RANDOM Fluids Routine TTP (thrombotic thrombocytopenic purpura) Expected: 11/16/2023, Expires: 11/15/2024 [facility] Comment on above: Expected: 11/16/2023, Expires: Start: 11-10-2023 [facility] Start: 10-29-2023 [facility] Start: 10-27-2023 PREVENTATIVE HEALTH VISIT PREVENTATIVE HEALTH VISIT [facility] Start: 09-29-2023 Urine screening for protein URINE MICROALBUMIN TEST [facility] Start: 08-16-2023 Hemoglobin A1c measurement HBA1C TEST [facility] Start: 07-21-2023 Hemoglobin A1c measurement Diabetes: Hemoglobin A1C [facility] Start: 07-21-2023 Lipid panel LIPIDS [facility] Start: 07-21-2023 LIPIDS LIPIDS [facility] Start: 07-17-2023 End: 07-17-2023 Patient encounter procedure 07/17/2023 Office Visit Family Medicine Sonido Dyer, [facility] [address] [place] [address] [facility] Start: 06-16-2023 COVID-19 Vaccine ( season) COVID-19 Vaccine () [facility] Start: 06-16-2023 COVID-19 VACCINE () COVID-19 VACCINE ( season) [facility] Start: 06-16-2023 Influenza vaccination Influenza Vaccine (#1) [facility] Start: 04-13-2023 End: 04-13-2023 Patient encounter procedure 04/13/2023 Office Visit Hematology Abdirahman Rutherford MD [address] [place] [address] Division of Hematology & Oncology Start: 03-02-2023 End: 03-02-2023 Patient encounter procedure 03/02/2023 Office Visit [facility] [address] [facility] [address] [place] [address] [facility] [place] Start: 02-15-2023 End: 02-15-2023 Patient encounter procedure 02/15/2023 Office Visit Orthopaedics [facility]ana Blackwood [facility] [address] [facility] [address] [place] [address] Hand and [facility] Start: 02-02-2023 End: 02-02-2023 Patient encounter procedure 02/02/2023 Office Visit Family Medicine Sonido D[place], [facility] [address] [place] [address] [facility] Start: 01-24-2023 Suicide precautions [facility] Start: 01-23-2023 Referral to service [facility] Start: 01-23-2023 Suicide precautions [facility] Start: 01-19-2023 Hemoglobin A1c measurement HBA1C TEST [facility] Start: 01-19-2023 End: 01-19-2023 Patient encounter procedure 01/19/2023 Office Visit Hematology Abdirahman Rutherford MD [address] [facility] [address] [place] [address] Division of Hematology & Oncology Start: 12-14-2022 End: 12-14-2022 Patient encounter procedure 12/14/2022 Office Visit [facility] Medicine [facility]rain Berry [facility] [address] [facility] [address] [place] [address] [facility] [place] Start: 11-03-2022 End: 11-03-2022 Telemedicine consultation with patient 11/03/2022 Telemedicine Family Medicine Sonido Dyer, [facility] [address] [place] [address] [facility] Start: 10-27-2022 End: 10-26-2023 [id number] ACTIVITY AND IGG AB W/REFLEX TO INHIBITOR [facility] Comment on above: Expected: 10/27/2022, Expires: 4 Start: 10-27-2022 End: 10-26-2023 BLOOD, RESEARCH BLOOD, RESEARCH Lab Routine TTP (thrombotic thrombocytopenic purpura) Expected: 10/27/2022, Expires: 10/26/2023 [facility] Comment on above: Expected: 10/27/2022, Expires: 4 Start: 10-27-2022 End: 10-27-2022 Patient encounter procedure 10/27/2022 Office Visit Family Medicine Lonnie Ring, COREMAKER APPRENTICE-METHODS EXAMINER [address] [facility] [address] [place] [address] [facility] Start: 10-27-2022 End: 10-27-2022 Patient encounter procedure 10/27/2022 Office Visit Hematology Abdirahman Rutherford MD [address] [facility] [address] [place] [address] Division of Hematology & Oncology Start: 10-06-2022 End: 10-06-2022 Patient encounter procedure 10/06/2022 Appointment Magnetic Resonance Imaging Shira Cota BENNETT [address] [facility] [address] [place] [address] [facility] Start: 09-29-2022 Hemoglobin A1c measurement HBA1C TEST [facility] Start: 09-29-2022 End: 09-29-2022 Patient encounter procedure [facility] [place] Start: 09-28-2022 Microalbumin measurement, urine, quantitative URINE MICROALBUMIN TEST [facility] Start: 09-28-2022 Urine screening for protein URINE MICROALBUMIN TEST [facility] Start: 09-22-2022 LIPIDS LIPIDS [facility] Start: 09-16-2022 End: 09-16-2023 MR Ankle - left WO contrast MRI ANKLE LEFT WITHOUT CONTRAST Imaging Routine Insertional Achilles tendinopathy Expected: 09/16/2022, Expires: 09/16/2023 [facility] Comment on above: Expected: 09/16/2022, Expires: 3 Start: 08-04-2022 End: 08-04-2022 Telemedicine consultation with patient 08/04/2022 Telemedicine Family Medicine Sonido Dyer, [facility] [address] [place] [address] [facility] [place] Start: 08-01-2022 End: 08-01-2022 Patient encounter procedure 08/01/2022 Office Visit Sports Medicine Shira Cota, BENNETT [address] [facility] [address] [place] [address] [facility] [place] Start: 07-28-2022 End: 07-28-2022 Patient encounter procedure 07/28/2022 Office Visit Podiatry Shira Cota, CHRISTIANM [address] [facility] [address] [place] [address] Podiatry [facility] [place] Start: 07-21-2022 End: 07-20-2023 BLOOD, RESEARCH BLOOD, RESEARCH Lab Routine TTP (thrombotic thrombocytopenic purpura) Expected: 07/21/2022, Expires: 07/20/2023 [facility] Comment on above: Expected: 07/21/2022, Expires: 3 Start: 07-21-2022 End: 07-21-2022 Patient encounter procedure 07/21/2022 Office Visit Hematology Abdirahman Rutherford MD [address] [place] [address] Division of Hematology & Oncology Start: 07-20-2022 End: 07-20-2023 [id number] ACTIVITY AND IGG AB W/REFLEX TO INHIBITOR [id number] ACTIVITY AND IGG AB W/REFLEX TO INHIBITOR Lab Routine TTP (thrombotic thrombocytopenic purpura) Expected: 07/20/2022, Expires: 07/20/2023 [facility] Comment on above: Expected: 07/20/2022, Expires: 3 Start: 07-20-2022 End: 07-20-2023 BLOOD, RESEARCH BLOOD, RESEARCH Lab Routine TTP (thrombotic thrombocytopenic purpura) Expected: 07/20/2022, Expires: 07/20/2023 [facility] Comment on above: Expected: 07/20/2022, Expires: 3 Start: 06-30-2022 Hemoglobin A1c measurement HBA1C TEST [facility] Start: 06-16-2022 Influenza vaccination INFLUENZA VACCINE (#1) [facility] Start: 06-02-2022 End: 06-02-2022 Telemedicine consultation with patient 06/02/2022 Telemedicine Family Medicine Sonido Dyer, [facility] [address] [place] [address] [facility] [place] Start: 05-13-2022 End: 05-13-2022 Patient encounter procedure 05/13/2022 Office Visit Multispecialty Fran Gaston MD [address] [place] [phone] Spine Care Outpatient [facility] Start: 05-12-2022 End: 05-12-2022 Patient encounter procedure 05/12/2022 Office Visit Podiatry Shira Cota, DPVaishnavi [address] [facility] [address] [place] [address] Podiatry [facility] [place] Start: 04-26-2022 End: 04-26-2022 Telemedicine consultation with patient 04/26/2022 Telemedicine Family Medicine Sonido Dyer, [facility] [address] [place] [address] Family Medicine [facility] [place] Start: 04-19-2022 End: 04-19-2022 Patient encounter procedure 04/19/2022 Office Visit Family Medicine Lonnie Ring, COREMAKER APPRENTICE-METHODS EXAMINER [address] [id number] Family Medicine [facility] [place] Start: 04-15-2022 End: 04-15-2022 Patient encounter procedure 04/15/2022 Office Visit Multispecialty Fran Gaston MD [address] [place] [address] Spine Care Outpatient [facility] Start: 04-14-2022 End: 04-13-2023 [id number] ACTIVITY AND IGG AB W/REFLEX TO INHIBITOR [facility] Comment on above: Expected: 04/14/2022, Expires: 3 Start: 04-14-2022 End: 04-13-2023 BLOOD, RESEARCH BLOOD, RESEARCH Lab Routine TTP (thrombotic thrombocytopenic purpura) Expected: 04/14/2022, Expires: 04/13/2023 [facility] Comment on above: Expected: 04/14/2022, Expires: 3 Start: 04-14-2022 End: 04-14-2022 Patient encounter procedure Division of Hematology & Oncology Start: 03-22-2022 End: 03-22-2022 Patient encounter procedure 03/22/2022 Office Visit Podiatry Shira Cota, BENNETT [address] [facility] [address] [place] [address] Podiatry [facility] [place] Start: 02-22-2022 End: 02-22-2022 Telemedicine consultation with patient 02/22/2022 Telemedicine Family Medicine Sonido Dyer, [facility] [address] [place] [phone] Family Medicine [facility] [place] Start: 02-17-2022 End: 02-17-2022 ambulatory 02/17/2022 Rehab Services Visit Sports Medicine and Rehabilitation Lonnie Ring, COREM[employer]ER APPRENTICE-METHODS EXAMINER [address] [place] [address] Cristela Wong, PT [address] [facility] [address] [place] [address] [facility] Start: 02-09-2022 End: 02-09-2022 ambulatory Sports Medicine Therapy [facility] Comment on above: Arrived Start: 02-08-2022 End: 02-08-2022 Telemedicine consultation with patient 02/08/2022 Telemedicine Family Medicine Sonido Dyer, [facility] [address] [place] [phone] Family Medicine [facility] [place] Start: 02-08-2022 End: 02-08-2022 Patient encounter procedure 02/08/2022 Office Visit Podiatry Shira Cota, BENNETT [address] [facility] [address] [place] [phone] Podiatry [facility] [place] Start: 02-02-2022 End: 02-02-2022 ambulatory 02/02/2022 Rehab Services Visit Sports Medicine and Rehabilitation Lonnie Ring APRN-METHODS EXAMINER [address] [place] [address] Cristela Wong, PT [address] [place] [phone] [facility] Start: 01-31-2022 End: 01-31-2022 Patient encounter procedure 01/31/2022 Office Visit Family Medicine Lonnie Ring APRN-METHODS EXAMINER [address] [facility] [place] [address] Family Medicine [facility] [place] Start: 01-28-2022 End: 01-28-2022 ambulatory 01/28/2022 Rehab Services Visit Sports Medicine and Rehabilitation Lonnie Ring APRN-METHODS EXAMINER [address] [facility] [place] [address] Cristela Wong, PT [address] [place] [phone] [facility] Start: 06-24-2021 COVID-19 VACCINE (2 - Booster for Karla series) COVID-19 VACCINE (2 - Booster for Karla series) [facility] Start: 02-08-2000 DTaP/Tdap/Td Vaccines (1 - Tdap) DTaP/Tdap/Td Vaccines (1 - Tdap) [facility] Start: 02-08-2000 Hepatitis B vaccination HEP B VACCINE (1 of 3 - 19+ 3-dose series) [facility] Start: 02-08-2000 Hepatitis B Vaccines (1 of 3 - 19+ 3-dose series) Hepatitis B Vaccines (1 of 3 - 19+ 3-dose series) [facility] Start: 02-08-2000 Third diphtheria, tetanus and acellular pertussis (DTaP) vaccination TDAP (ADULT) [facility] Start: 1999 Diabetes: Estimated Glomerular Filtration Rate for Kidney Health Diabetes: Estimated Glomerular Filtration Rate for Kidney Health [facility] Start: 1999 Diabetes: Urine Albumin-Creatinine Ratio for Kidney Health Diabetes: Urine Albumin-Creatinine Ratio for Kidney Health [facility] Start: 1999 Hepatitis C screening Hepatitis C Screening [facility] Start: 1999 Tetanus vaccination TETANUS [facility] Start: 1994 Varicella vaccination Varicella Vaccines (1 of 2 - 13+ 2-dose series) [facility] Start: 1993 Depression Screening Depression Screening [facility] Start: 1991 Diabetic foot examination Diabetes: Foot Exam [facility] Start: 1991 Glaucoma screening Diabetes: Retinopathy Screening [facility] Start: 1991 Preventive dental service Diabetes: Dental Exam [facility] Start: 1987 Pneumococcal Vaccine: Pediatrics (0 to 5 Years) and At-Risk Patients (6 to 64 Years) (1 - PCV) Pneumococcal Vaccine: Pediatrics (0 to 5 Years) and At-Risk Patients (6 to 64 Years) (1 - PCV) [facility] Start: 1987 Pneumococcal Vaccine: Pediatrics (0 to 5 Years) and At-Risk Patients (6 to 64 Years) (1 of 2 - PCV) Pneumococcal Vaccine: Pediatrics (0 to 5 Years) and At-Risk Patients (6 to 64 Years) (1 of 2 - PCV) [facility] Start: 02-08-1984 PREVENTATIVE HEALTH VISIT PREVENTATIVE HEALTH VISIT [facility] Start: 1982 MMR Vaccines (1 of 1 - Standard series) MMR Vaccines (1 of 1 - Standard series) [facility] Start: 1982 Varicella vaccination Varicella Vaccines (1 of 2 - 2-dose childhood series) [facility] Start: 1981 Diabetic foot examination DIABETIC FOOT EXAM [facility] Start: 1981 Diabetic retinal eye exam EYE EXAM [facility] Start: 1981 Glaucoma screening EYE EXAM [facility] Start: 1981 Hemoglobin A1c measurement Diabetes: Hemoglobin A1C [facility] Start: 1981 Hepatitis B vaccination HEP B VACCINE (1 of 3 - 3-dose series) [facility] Start: 1981 Hepatitis B Vaccines (1 of 3 - 3-dose series) Hepatitis B Vaccines (1 of 3 - 3-dose series) [facility] Start: 1981 HIV screening HIV Screening [facility] Start: 1981 Lipid panel Lipid Panel [facility] Start: 1981 Tetanus vaccination TETANUS [facility] [id number] ACTIVITY [id number] ACTIV ITY Lab Routine TTP (thrombotic thrombocytopenic purpura) 10/27/2022 9:07 AM EST [facility] [id number] ACTIVITY [id number] ACTIV ITY Lab Routine TTP (thrombotic thrombocytopenic purpura) 02/15/2024 8:18 AM EDT [facility] [id number] ACTIVITY [id number] ACTIV ITY Lab Routine TTP (thrombotic thrombocytopenic purpura) 09/26/2024 11:19 AM EST [facility] [id number] ACTIVITY [id number] ACTIV ITY Lab Routine TTP (thrombotic thrombocytopenic purpura) 01/16/2025 9:59 AM EDT [facility] [id number] ACTIVITY AN D IGG AB W/REFLEX TO INHIBITOR [id number] ACTIVITY AND IGG AB W/REFLEX TO INHIBITOR Lab Routine TTP (thrombotic thrombocytopenic purpura) 07/21/2022 9:50 AM EDT [facility] [id number] ACTIVITY AN D IGG AB W/REFLEX TO INHIBITOR [id number] ACTIVITY AND IGG AB W/REFLEX TO INHIBITOR Lab Routine TTP (thrombotic thrombocytopenic purpura) 01/04/2024 11:49 AM EDT [facility] [id number] ACTIVITY AN D IGG AB W/REFLEX TO INHIBITOR [id number] ACTIVITY AND IGG AB W/REFLEX TO INHIBITOR Lab Routine TTP (thrombotic thrombocytopenic purpura) 02/15/2024 8:18 AM EDT [facility] [id number] ACTIVITY AN D IGG AB W/REFLEX TO INHIBITOR [id number] ACTIVITY AND IGG AB W/REFLEX TO INHIBITOR Lab Routine TTP (thrombotic thrombocytopenic purpura) 09/26/2024 11:19 AM EST [facility] [id number] ACTIVITY AN D IGG AB W/REFLEX TO INHIBITOR [id number] ACTIVITY AND IGG AB W/REFLEX TO INHIBITOR Lab Routine TTP (thrombotic thrombocytopenic purpura) 01/16/2025 9:59 [facility] [id number] [facility] [id number] IGG AB Lab Routine TTP (thrombotic thrombocytopenic purpura) 04/14/2022 8:36 AM EDT [facility] [id number] IGG AB [id number] IGG AB Lab Routine TTP (thrombotic thrombocytopenic purpura) 07/21/2022 9:50 AM EDT [facility] [id number] IGG AB [id number] IGG AB Lab Routine TTP (thrombotic thrombocytopenic purpura) 10/27/2022 9:07 AM EST [facility] [id number] IGG AB [id number] IGG AB Lab Routine TTP (thrombotic thrombocytopenic purpura) 01/04/2024 11:49 AM EDT [facility] [id number] IGG AB [id number] IGG AB Lab Routine TTP (thrombotic thrombocytopenic purpura) 02/15/2024 8:18 AM EDT [facility] [id number] IGG AB [id number] IGG AB Lab Routine TTP (thrombotic thrombocytopenic purpura) 09/26/2024 11:19 AM EST [facility] [id number] IGG AB [id number] IGG AB Lab Routine TTP (thrombotic thrombocytopenic purpura) 01/16/2025 9:59 AM EDT [facility] Alanine aminotransfe rase [Enzymatic activity/volume] in Serum or Plasma [facility] Albumin [Mass/volume ] in Serum or Plasma [facility] Alkaline phosphatase [Enzymatic activity/volume] in Serum or Plasma [facility] Amphetamine [Mass/volume] in Urine [facility] Anion gap measurement [facility] Aspartate aminotransferase [Enzymatic activity/volume] in Serum or Plasma [facility] Benzodiazepine measurement, urine [facility] Bilirubin measuremen t, urine [facility] Bilirubin, total measurement [facility] BLUE LIGHT, RESEARCH BLUE LIGHT, RESEARCH Lab Routine TTP (thrombotic thrombocytopenic purpura) Ordered: 04/14/2022 [facility] Comment on above: Ordered: 04/14/2022 BLUE LIGHT, RESEARCH BLUE LIGHT, RESEARCH Lab Routine TTP (thrombotic thrombocytopenic purpura) Ordered: 07/21/2022 [facility] Comment on above: Ordered: 07/21/2022 BLUE LIGHT, RESEARCH BLUE LIGHT, RESEARCH Lab Routine TTP (thrombotic thrombocytopenic purpura) Ordered: 10/27/2022 [facility] Comment on above: Ordered: 10/27/2022 BLUE LIGHT, RESEARCH BLUE LIGHT, RESEARCH Lab Routine TTP (thrombotic thrombocytopenic purpura) Ordered: 11/16/2023 [facility] Comment on above: Ordered: 11/16/2023 BLUE LIGHT, RESEARCH BLUE LIGHT, RESEARCH Lab Routine TTP (thrombotic thrombocytopenic purpura) Ordered: 01/04/2024 [facility] Comment on above: Ordered: 01/04/2024 BLUE LIGHT, RESEARCH BLUE LIGHT, RESEARCH Lab Routine TTP (thrombotic thrombocytopenic purpura) Ordered: 09/26/2024 [facility] Comment on above: Ordered: 09/26/2024 BLUE LIGHT, RESEARCH BLUE LIGHT, RESEARCH Lab Routine TTP (thrombotic thrombocytopenic purpura) Ordered: 01/16/2025 [facility] Comment on above: Ordered: 01/16/2025 BUN/Creatinine ratio [facility] Calcium [Mass/volume ] in Serum or Plasma [facility] Carbon dioxide, tota l [Moles/volume] in Serum or Plasma [facility] Chloride [Moles/volu me] in Serum or Plasma [facility] Cholesterol [Mass/volume] in Serum or Plasma [facility] Cholesterol in LDL [Mass/volume] in Serum or Plasma [facility] Cocaine measurement, urine [facility] Creatinine [Moles/volume] in Serum or Plasma [facility] Erythrocyte mean corpuscular volume determination [facility] EXTRA LAVENDER TOP EXTRA LAVENDE R TOP Lab Routine Encounter for follow-up 07/21/2022 9:50 AM EDT [facility] EXTRA TUBES EXTRA TUBES Lab Routine Encounter for follow-up 07/21/2022 9:50 AM EDT [facility] Glucose [Mass/volume ] in Serum or Plasma [facility] Hematocrit [Volume Fraction] of Blood [facility] Hemoglobin [Mass/vol ume] in Blood [facility] Hemoglobin [Presence ] in Urine [facility] Hemoglobin A1c/Hemoglobin.total in Blood [facility] Hemoglobin A1c/Hemoglobin.total in Blood [facility] High density lipopro tein measurement [facility] LAV DRAW, RESEARCH LAV DRAW, RES EARCH Lab Routine TTP (thrombotic thrombocytopenic purpura) Ordered: 04/14/2022 [facility] Comment on above: Ordered: 04/14/2022 LAV DRAW, RESEARCH LAV DRAW, RES EARCH Lab Routine TTP (thrombotic thrombocytopenic purpura) Ordered: 07/21/2022 [facility] Comment on above: Ordered: 07/21/2022 LAV DRAW, RESEARCH LAV DRAW, RES EARCH Lab Routine TTP (thrombotic thrombocytopenic purpura) Ordered: 11/16/2023 [facility] Comment on above: Ordered: 11/16/2023 LAV DRAW, RESEARCH LAV DRAW, RES EARCH Lab Routine TTP (thrombotic thrombocytopenic purpura) Ordered: 01/04/2024 [facility] Comment on above: Ordered: 01/04/2024 LAV DRAW, RESEARCH LAV DRAW, RES EARCH Lab Routine TTP (thrombotic thrombocytopenic purpura) Ordered: 09/26/2024 [facility] Comment on above: Ordered: 09/26/2024 LAV DRAW, RESEARCH LAV DRAW, RES EARCH Lab Routine TTP (thrombotic thrombocytopenic purpura) Ordered: 01/16/2025 [facility] Comment on above: Ordered: 01/16/2025 Leukocytes [#/volume ] in Blood [facility] Magnesium [Mass/volu me] in Serum or Plasma [facility] Mean corpuscular hemoglobin concentration determination [facility] Mean corpuscular hemoglobin determination [facility] Measurement of 3,4-methylenedioxymetham phetamine in urine [facility] Measurement of keton es in urine using dipstick [facility] Measurement of renal function [facility] Methadone measuremen t, urine [facility] Microscopic urinalysis [facility] Neutrophil count [facility] Neutrophil percent differential count [facility] Patient Education [facility] Work Phone: Patient referral [facility] Work Phone: pH of Urine [facility] pH of Urine [facility] Phencyclidine [Prese nce] in Urine [facility] Platelets [#/volume] in Blood [facility] Potassium [Moles/vol ume] in Serum or Plasma [facility] Red blood cell count [facility] Red cell distributio n width determination [facility] Serum inorganic phosphate measurement [facility] Sodium [Moles/volume ] in Serum or Plasma [facility] Specific gravity of Urine [facility] Total protein measurement [facility] Triglycerides measurement [facility] Urea nitrogen [Mass/volume] in Serum or Plasma [facility] Urinalysis, blood, qualitative [facility] Urine barbiturate measurement [facility] Urine cannabinoid measurement [facility] Urine dipstick for glucose [facility] Urine dipstick for leukocyte esterase [facility] Urine dipstick for nitrite [facility] Urine dipstick for protein [facility] Urine examination [facility] Urine microscopy: epithelial cells [facility] Urine Microscopy: wh ite cells [facility] Urine opiate measurement [facility] Urobilinogen [Presen ce] in Urine [facility] End: 03-17-2024 US scan of abdominal aorta [facility] [employer] Work Phone: Comment on above: Once for 1 Occurrences starting 03/17/20 24 until 03/17/2024 VLDL cholesterol measurement [facility] Immunizations Immunization Date Immunization Notes Care Provider Nadir pedraza 10-27-2022 diphtheria, tetanus toxoids and acellular pertussis vaccine, unspecified formulation Lonnie BOWEN Work Phone: [facility] 10-27-2022 tetanus toxoid, redu sunny diphtheria toxoid, and acellular pertussis vaccine, adsorbed; Translations: [TDAP VACCINE >10YO 0.5ML IM] Abdirahman Rutherford MD Work Phone: [facility] 09-29-2022 influenza virus vaccine, unspecified formulation Abdirahman Rutherford MD Work Phone: [facility] 09-28-2021 influenza virus vaccine, unspecified formulation Abdirahman Rutherford MD Work Phone: [facility] 04-29-2021 Covid ([employer]) [facility] 01-08-2016 tetanus toxoid, redu sunny diphtheria toxoid, and acellular pertussis vaccine, adsorbed NIDAL RANJITH DO [facility] Payers Date Payer Category Payer Self-pay [id number] 2023 Medicaid [id number] 2023 Unknown [id number] 2023 Medicaid (Managed Care) [employer] [id number] 2022 Medicaid [employer] ODM [id number] 2022-Present [phone] [address] [place] [address] Medicaid HMO [id number] 2015 Unknown [id number] 2015 Unknown [id number] 1.13.172.2. [id number] 2015 Unknown [id number] 1981 Unknown [id number] 2.16.840.1.723133.3.579.2. 627 1981 Unknown [id number] 2.16.840.1.722785.3.579.2. 627 1981 Unknown [id number] 2.0.1.153507.3.579.2. 651 1981 Unknown [id number] .0.1.659700.3.579.2. 1243 1981 Unknown [id number] 2.840.1.852992.3.579.2. 594 1981 Unknown [id number] .0.1.462239.3.579.2. 594 1981 Unknown [id number] .0.1.532673.3.579.2. 594 1981 Unknown [id number] ..1.975637.3.579.2. 594 1981 Unknown [id number] .0.1.171291.3.579.2. 594 1981 Unknown [id number] .1.832563.3.579.2. 594 1981 Unknown [id number] 12.01.830.1.941698.3.579.2. 594 Unknown COMMERCIAL OTHER [id number] Unknown [id number] Unknown [id number] 12.01.830.1.854197.3.579.2. 462 Unknown [id number] 12.01.830.1.147882.3.579.2. 462 Unknown [id number] 12.01.830.1.515026.3.579.2. 462 Unknown [id number] 12.01.830.1.748722.3.579.2. 462 Unknown [id number] 840.1.035122.3.579.2. 462 Unknown [id number] 840.1.566117.3.579.2. 462 Unknown [id number] 840.1.424228.3.579.2. 462 Unknown [id number] 2.16.840.1.439231.3.579.2. 462 Unknown [id number] 2.16.840.1.261655.3.579.2. 462 Unknown [id number] 2.16.840.1.510313.3.579.2. 462 Unknown [id number] 2.16.840.1.818681.3.579.2. 462 Unknown [id number] 2.16.840.1.907598.3.579.2. 462 Unknown [id number] 2.16.840.1.747824.3.579.2. 462 Unknown [id number] 2.16.840.1.552641.3.579.2. 462 Unknown [id number] 2.16.840.1.723964.3.579.2. 462 Unknown [id number] 2.16.840.1.822402.3.579.2. 462 Unknown [id number] 2.16.840.1.715930.3.579.2. 462 Unknown [id number] 2.16.840.1.058128.3.579.2. 462 Unknown [id number] 2.16.840.1.924234.3.579.2. 462 Unknown [id number] 2.16.840.1.328251.3.579.2. 462 Unknown [id number] 2.16.840.1.059345.3.579.2. 462 Unknown [id number] 2.16.840.1.496597.3.579.2. 462 Unknown [id number] 2.16.840.1.069991.3.579.2. 462 Social History Date Type Detail Facility Start: 01-06-2022 End: 02-23-2024 Tobacco smoking status NHIS Unknown if ever smoked [facility] Start: 03-13-2019 Rare [facility] Start: 01-12-2015 None [facility] Start: 03-13-2019 Alone [facility] Start: 02-01-2021 Vapor [facility] Start: 1981 Sex Assigned At Male [facility] Start: 02-12-1994 End: 02-15-2024 Tobacco smoking status NHIS Smokes tobacco daily [facility] Start: 02-12-1994 History of tobacco use Cigarette Smoker [facility] Start: 09-22-2021 End: 01-16-2025 Cigarettes smoked current (pack per day) - Reported 1 [facility] Start: 09-22-2021 End: 02-15-2024 Tobacco use and exposure Former smokeless tobacco user [facility] Start: 01-27-2022 End: 01-23-2025 Alcohol intake Current non-drinker of alcohol (finding) [facility] Start: 09-22-2021 End: 09-16-2022 Tobacco Comment Keep's me calm in a stressful situation [facility] Start: 1980 Sex Assigned At Not on file [facility] Start: 01-15-2022 End: 10-27-2022 Exposure to SARS-CoV-2 (event) Unable to assess [facility] Start: 09-26-2022 End: 10-06-2022 Exposure to SARS-CoV-2 (event) Not sure [facility] Start: 09-16-2023 End: 01-16-2025 Alcohol Use Disorder Identification Test - Consumption [AUDIT-C] [facility] How often to you hav e a drink containing alcohol? Never [facility] How many standard dr inks containing alcohol do you have on a typical day? Patient does not drink [facility] Sex Assigned At Sex [facility] Start: 08-24-2017 Gender identity Identifies as male gender (finding) [facility] Start: 01-22-2019 Sexual orientation Heterosexual (finding) [facility] Start: 11-18-2012 Sex Male (finding) [facility] Medical Equipment Procedure Code Equipment Code Equipment Origin al Text Equipment Identifier Dates Cath Dial Hemosp lit 19cm [id number] Start: 10-26-2012 Cath Dial Hemosp lit 19cm [id number] Start: 11-02-2012 Use new needle w ith each insulin injection. [id number] Start: 10-20-2021 Use new needle w ith each insulin injection. [id number] Start: 05-26-2022 Use as instructed [id number] Start: 02-28-2024 Use as instructed [id number] Start: 02-28-2024 Goals Date Patient Goal Desired Activity /State Comment on above: Formatting of this n ote might be different from the original. Short Term Goals: 1.Independent home exercise program. (Met 01/12/22) 2. Increase quad/hamstring/piriformis flexibility to un-tether pelvis. (Ongoing) 3. Increased activation & strength of core musculature in order to support spine neutral posture. (Ongoing) Prison Goals: 4. Increase cervical mobility to allow full use of neck in functional activities.(Ongoing) 5. Improve postural alignment to unload cervical musculature.(Ongoing) 6. Decrease pain rating, MCID on Outcome Tool. (Ongoing) Functional Status Date Assessment Result Facility 02-23-2024 Functional status Ambulates;Up ad eddie [facility] Work Phone: 11-27-2023 Functional Status ID band on, Allergy Band on, Call device within reach, Bed in low position, Wheels locked, Upper/Half-Length side-rails up, personal items within reach, Bedside Cart Locked [facility] 11-03-2023 Functional Status ID band on, Call device within reach, Bed in low position, Wheels locked, Upper/Half-Length side-rails up [facility] Mental Status Date Assessment Result Facility 02-23-2024 Cognitive function Level Of Cons ciousness Awake;Alert;Appropriate;Follow s Commands [facility] Work Phone: 02-22-2024 Cognitive function Level Of Cons ciousness Awake;Alert;Appropriate;Follow s Commands [facility] Work Phone: 11-27-2023 Mental Status Oriented x 4 [facility] 11-03-2023 Mental Status Oriented x 4 [facility] 10-08-2021 Cognitive function Level Of Cons ciousness Awake;Alert;Appropriate;Follow s Commands [facility] Work Phone: 09-30-2021 Cognitive function Level Of Cons ciousness Awake;Alert;Appropriate [facility] Work Phone: Clinical Notes 01-27-2022 to 01-16-2025 Karli Simpson RN - 01/16/2025 10:30 AM Zaida Banda MD - 01/16/2025 10:30 AM Steve Brock RN - 01/16/2025 10:30 AM EDTPatient Elisa Rutherford MD - 09/26/2024 2:48 PM EST Note Date & Type Note Facility 01-16-2025 History of Present illness Narrative Any petechiae/bleeding/unusual bruising? YES/NO: yes - neck Any pain?YES-DESCRIBE/NO: Yes, describe: Neck pain (aches/cramps with 5-6/10 pain) and pressure headaches (9/10 pain) - if yes: - alleviating factors? Napping - last dose of OTC or prescription pain med? Tylenol w/ morning meds today 01/16/25 - How often does pt need analgesic? Q8hr daily Fatigue? YES-DESCRIBE/NO: No, reports he feels his energy is okay, but not the best it has been Headache? YES-DESCRIBE/NO: Yes, describe: Pressure headache, about 1 MERCER per day Weakness? YES-DESCRIBE/NO: No Chest pain? YES-DESCRIBE/NO: No Mood issues? YES-DESCRIBE/NO: No Memory, focus, or word finding issues? YES-DESCRIBE/NO: Yes, describe: Difficulty with memory and reports he often has difficulty finding words Blood in urine or stool? No Reports he is seeing a youth specialist for his neck pain and headaches on 01/23/25. Reports he only sleeping 3-4 hours per night. CHIEF COMPLAINT No chief complaint on file. HISTORY OF PRESENT ILLNESS Jairo Adkins Jr. is a 44 y.o. 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 Hematology History Mr. Adkins was initially diagnosed in 2003 with TTP after he presented to local ED in [place] with diffuse ecchymoses and low platelet count. [...] of Rituxan and PLEX. His TTP and [id number] activity had been stable, then in December 2020 his EGEVDF31 activity decreased to less than 30% and he was started on prophylactic Rituxan. Last dose ppx Rituxan was 05/13/21. He has ongoing issues with chronic MERCER, mood disorder and anxiety. Interval History Last seen in September, doing about the same. Notes that his headaches seem to be focalized oat the back of the head. Denies any vision changes, aura, or auditory changes. Smoking about 1 ppd. Noting some epigastric tenderness/heartburn that seems to be worsening. Denies any other MEDICATIONS Current Outpatient Medications Medication Sig Alcohol Swabs Pads Use to give insulin up to 5 times daily DISABILITY PLACARD Disability placard end date 10/26/28 GLUCOSE MONITOR PRESCRIPTION Use as instructed Lantus SoloStar 100 UNIT/ML Solution Pen-injector injection Inject 30 Units under the skin daily every morning. (Patient taking differently: Inject 30 Units under the skin daily every morning. Takes 50 units daily) Ondansetron 8 MG Tab Dispersible tablet Take 1 tablet by mouth every 4 hours as needed. Dulaglutide (Trulicity) 1.5 MG/0.5ML Solution Auto-injector injection Inject 0.5 mL under the skin once a week. GLUCOSE MONITOR LANCETS PRESCRIPTION Use as instructed GLUCOSE TEST STRIPS PRESCRIPTION Use as instructed ALLERGIES is allergic to asa buff (mag [aspirin buffered], tramadol, aspirin, dicyclomine hcl, fentanyl [fentanyl], methadone, morphine, prednisone, propoxyphene, and gadavist [gadobutrol]. REVIEW OF SYSTEMS A fourteen point review of systems was completed and is negative except as noted in [place]. PHYSICAL EXAM BP 114/73 (BP Position: Sitting) Pulse 88 Temp 97.5 F (36.4 C) (Oral) Resp 18 Wt (!) 137.8 kg (303 lb 12.8 oz) SpO2 95% BMI 44.86 kg/m Smoking Status Every Day GEN: AAOx3, NAD HEAD and NECK: normocephalic, atraumatic. Conjunctiva non-injected, sclera anicteric. No palpable cervical LAD. +bilateral submandibular LAD CHEST: CTAB, no wheezes/rhonchi/rales. CARDIO: RRR, S1 [...] orders placed or performed in visit on 01/16/25 COMPREHENSIVE METABOLIC PANEL Result Value Ref Range Sodium 135 135 - 145 mmol/L Potassium 4.1 3.5 - 5.0 mmol/L Chloride 104 98 - 108 mmol/L BUN 12 7 - 25 mg/dL Creatinine 0.73 0.70 - 1.30 mg/dL Glucose 206 (H) Nonfastin-179 mg/dL; Fastin-99 mg/dL Bilirubin Total 0.4 <1.5 mg/dL Albumin 4.2 3.5 - 5.0 g/dL Total Protein 7.5 6.4 - 8.3 g/dL AST 30 10 - 39 U/L ALP 111 32 - 126 U/L Calcium 8.9 8.6 - 10.5 mg/dL CO2 23 21 - 31 mmol/L ALT 52 10 - 52 U/L Bun/Crea Ratio 16 Osmolality (Calculated) 290 278 - 305 mOsm/kg Anion Gap 12 7 - 17 mmol/L eGFR, CKD-EPI, Male >90 >=60 mL/min/1.73m2 LACTATE DEHYDROGENASE Result Value Ref Range LD Total 111 100 - 190 U/L CBC AND ELECTRONIC DIFF Result Value Ref Range WBC Count 9.11 3.73 - 10.10 K/uL RBC Count 5.40 4.38 - 5.83 M/uL Hemoglobin 16.3 13.4 - 16.8 g/dL Hematocrit 47.5 39.6 - 48.8 % Mean Cell Volume 88.0 79.0 - 94.5 fL Mean Cell Hgb 30.2 26.1 - 33.3 pg Mean Cell Hgb Conc 34.3 31.9 - 36.5 g/dL RBC Distribution 13.6 10.9 - 14.3 % Platelet Count 255 146 - 337 K/uL Mean Platelet Volume 9.4 8.7 - 12.3 fL DIFF STATUS Electronic Differential Segs + Bands Auto 56.6 % Immature Grans % 0.5 % Lymphocyte % Auto 27.6 % Monocyte % Auto 7.8 % Eosinophil % Auto 6.7 % Basophil % Auto 0.8 % Nucleated RBC 0.0 <=0.2 /100 WBC Segs + Bands,Absolute Auto 5.16 1.57 - 6.19 K/uL Immature Grans Absolute 0.05 <=0.07 K/uL Abs Lymph Auto 2.51 0.83 - 3.57 K/uL Abs Andrew Auto 0.71 0.24 - 0.93 K/uL Abs Eos Auto 0.61 (H) 0.00 - 0.48 K/uL Abs Baso Auto 0.07 0.00 - 0.09 K/uL URINE PROTEIN/CREA RATIO, RANDOM Result Value Ref Range Urine Creatinine 137.79 mg/dL Urine Protein 12 mg/dL Prot/Creat Ratio 0.087 mg/mg ASSESSMENT & PLAN Jairo Adkins Jr. is a 44 y.o.male with a history of chronic relapsing TTP and Type II DM who presents for follow up of TTP. 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 He denies any increase in bleeding or bruising, no petechiae, no changes in MERCER or abdominal pain. He understands the importance of health maintenance and the increased risk of CV disease in patients with TTP. He will work to reestablish with a PCP. Regarding his shoulder pain, we discussed proceeding with PT and following up with sports medicine. Also noted submandibular LAD on exam and advised to have dental exam, which he hasn't had in >20 years. From a TTP standpoint, he is doing well and we will continue to monitor his PDITUJ18 activity and repeat rituximab if it drops <20%. Plan - Ok to proceed with Endopath study today - Discussed smoking cessation - follow up with [facility] 01/23 - Re-establish with PCP pending - RTC 3 months Junior Banda MD [facility] Hematology/Oncology Fellow PGY4 Pager [phone] I interviewed and examined Mr. Adkins and I agree with the findings and plan as dictated by Dr. Banda. Mood disorder issues which may be related to his TTP diagnosis as well as chronic headaches. [id number] activity to predict relapse risk of TTP is pending at this time. He will be participating in the EndoPat study of microvascular disease in TTP. Jose Rutherford Patient evaluated in Exam Clinic today, the following completed today. Collection of specimen with instructions (urine, sputum, nasal/throat culture) : Urine documented in this encounter [facility] 01-16-2025 Instructions Cassie Brock RN - 01/16/2025 10:30 AM EDT Results for orders placed or performed in visit on 01/16/25 COMPREHENSIVE METABOLIC PANEL Result Value Ref Range Sodium 135 135 - 145 mmol/L Potassium 4.1 3.5 - 5.0 mmol/L Chloride 104 98 - 108 mmol/L BUN 12 7 - 25 mg/dL Creatinine 0.73 0.70 - 1.30 mg/dL Glucose 206 (H) Nonfastin-179 mg/dL; Fastin-99 mg/dL Bilirubin Total 0.4 <1.5 mg/dL Albumin 4.2 3.5 - 5.0 g/dL Total Protein 7.5 6.4 - 8.3 g/dL AST 30 10 - 39 U/L ALP 111 32 - 126 U/L Calcium 8.9 8.6 - 10.5 mg/dL CO2 23 21 - 31 mmol/L ALT 52 10 - 52 U/L Bun/Crea Ratio 16 Osmolality (Calculated) 290 278 - 305 mOsm/kg Anion Gap 12 7 - 17 mmol/L eGFR, CKD-EPI, Male >90 >=60 mL/min/1.73m2 LACTATE DEHYDROGENASE Result Value Ref Range LD Total 111 100 - 190 U/L CBC AND ELECTRONIC DIFF Result Value Ref Range WBC Count 9.11 3.73 - 10.10 K/uL RBC Count 5.40 4.38 - 5.83 M/uL Hemoglobin 16.3 13.4 - 16.8 g/dL Hematocrit 47.5 39.6 - 48.8 % Mean Cell Volume 88.0 79.0 - 94.5 fL Mean Cell Hgb 30.2 26.1 - 33.3 pg Mean Cell Hgb Conc 34.3 31.9 - 36.5 g/dL RBC Distribution 13.6 10.9 - 14.3 % Platelet Count 255 146 - 337 K/uL Mean Platelet Volume 9.4 8.7 - 12.3 fL DIFF STATUS Electronic Differential Segs + Bands Auto 56.6 % Immature Grans % 0.5 % Lymphocyte % Auto 27.6 % Monocyte % Auto 7.8 % Eosinophil % Auto 6.7 % Basophil % Auto 0.8 % Nucleated RBC 0.0 <=0.2 /100 WBC Segs + Bands,Absolute Auto 5.16 1.57 - 6.19 K/uL Immature Grans Absolute 0.05 <=0.07 K/uL Abs Lymph Auto 2.51 0.83 - 3.57 K/uL Abs Andrew Auto 0.71 0.24 - 0.93 K/uL Abs Eos Auto 0.61 (H) 0.00 - 0.48 K/uL Abs Baso Auto 0.07 0.00 - 0.09 K/uL URINE PROTEIN/CREA RATIO, RANDOM Result Value Ref Range Urine Creatinine 137.79 mg/dL Urine Protein 12 mg/dL Prot/Creat Ratio 0.087 mg/mg documented in this encounter [facility] 09-26-2024 History of Present illness Narrative Mr. Adkins is a 44-year-old male who I have taken care of for nearly 20 years with a history of chronic relapsing TTP, multiple relapses over time. He suffers from long-term complications that include short-term memory issues, chronic headaches, but otherwise, he is doing relatively well. He has some chronic upper and lower back issues which date back to his many years working as a [employer] employee with heavy lifting and strain on his back. Of late, he is doing well. He does have long-term complications that include the development of hypertension, diabetes mellitus type 2, and the latter, he has taken much better care of late. We are still awaiting his hemoglobin A1c from today, but overall, his glycemic control has been markedly improved. He has some recent stressors in his life relating to his daughter and some issues that have resulted her in foster care, but overall he is doing well and working hard to getting her back at home with he and his . All things considered, he is doing well dealing with multiple complications, but doing better the past years. PAST MEDICAL HISTORY: Significant for immune mediated TTP with a chronic relapsing course, hypertension, diabetes mellitus type 2. PHYSICAL EXAMINATION: VITAL SIGNS: Temperature 97.9, pulse of 85, blood pressure 124/78. GENERAL: He is an alert and oriented male, well appearing, no acute distress. HEENT: Exam showed no cervical or supraclavicular adenopathy. CARDIAC: Exam showed normal S1 and S2 with a regular rate and rhythm. ABDOMINAL EXAM: Mildly obese but no rebound tenderness. EXTREMITIES: No lower extremity tenderness. No lower extremity edema appreciated. He had no focal deficits. Immune mediated TTP. Overall, Mr. Adkins is a 44-year-old male with history of multiple relapses of TTP, who has been in an on ongoing monitoring program with the use of preemptive rituximab for [id number] relapses. It has been many years since he has had acute TTP relapse, and we hope that the trend will continue with close monitoring of his [id number] activity. He does have risk factors for cardiovascular disease long-term in addition to the TTP including diabetes mellitus, hypertension, and the fact that he is still smoking. We discussed his smoking and trying to decrease it, but he is not ready to do so at the present time. We will enroll him at our prospective study of microvascular disease in TTP when he returns to see us in 3-4 months. We will continue to monitor his blood pressure control and help to control his diabetes, and do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 present for 3 weeks, it is not getting worse and he has been seen at an outside emergency department with x-ray studies showing no obvious fracture or injury. He presents today for evaluation of the shoulder pain of 3-4 weeks' duration. PAST MEDICAL HISTORY: Significant for TTP as above, history of hypertension, diabetes mellitus type 2. PHYSICAL EXAMINATION: VITAL SIGNS: Temperature 97.6, pulse of 91, blood pressure 137/88. GENERAL: He is alert male well appearing no acute distress. HEENT: Eye exam showed no scleral icterus. CARDIAC: Showed normal S1, S2 with a regular rate and rhythm. LUNGS: Clear bilaterally. EXTREMITIES: Lower extremities showed no dependent edema. Right shoulder was not tender to palpation in any way and was having free range of motion. Raising the shoulder upward led to pain just went it crossed the level of his shoulder and neck. There is no neurologic signs, numbness or tingling that accompanied this pain. Shoulder pain. In summary, Mr. Adkins is a 43-year-old male with right shoulder pain of unclear etiology. Again, he denotes no fall or trauma to it, but does have a longstanding history of cervical and thoracic spine disease from heavy lifting work in the past. The plain films have not shown any etiology, but he does have some concerning numbness and tingling. He reports that has been fairly constant in his arm. Given the fact that plain films have not shown any obvious fracture or injury, I will refer him to Orthopedic Surgery for evaluation to determine the potential cause of his shoulder pain. It is not clear to me at this time; hopefully, we will be able to shed light on this. He will come back to see us on a regularly scheduled visit in February of 2024, but knows to contact me after he sees Orthopedic Surgery, we can discuss what they found. documented in this encounterThe [facility]03-[facility]24 Instructions* Patient Instructions* Kati Jackson RN - 01/04/2024 11:10 AM EDT Results for orders placed or performed in visit on 01/04/24 COMPREHENSIVE METABOLIC PANEL Result Value Ref Range Sodium 135 135 - 145 mmol/L Potassium 4.0 3.5 - 5.0 mmol/L Chloride 103 98 - 108 mmol/L BUN 12 7 - 25 mg/dL Creatinine 0.77 0.70 - 1.30 mg/dL Glucose 160 (H) 70 - 99 mg/dL Bilirubin Total 0.4 <1.5 mg/dL Albumin 4.2 3.5 - 5.0 g/dL Total Protein 7.5 6.4 - 8.3 g/dL AST 59 (H) 10 - 39 U/L ALP 101 32 - 126 U/L Calcium 9.6 8.6 - 10.5 mg/dL CO2 26 21 - 31 mmol/L ALT 101 (H) 10 - 52 U/L Bun/Crea Ratio 16 Osmolality (Calculated) 287 278 - 305 mOsm/kg Anion Gap 10 7 - 17 mmol/L eGFR, CKD-EPI, Male >90 >=60 mL/min/1.73m2 LACTATE DEHYDROGENASE Result Value Ref Range LD Total 158 100 - 190 U/L CBC AND ELECTRONIC DIFF Result Value Ref Range WBC Count 8.70 3.73 - 10.10 K/uL RBC Count 5.37 4.38 - 5.83 M/uL Hemoglobin 15.9 13.4 - 16.8 g/dL Hematocrit 48.2 39.6 - 48.8 % Mean Cell Volume 89.8 79.0 - 94.5 fL Mean Cell Hgb 29.6 26.1 - 33.3 pg Mean Cell Hgb Conc 33.0 31.9 - 36.5 g/dL RBC Distribution 14.2 10.9 - 14.3 % Platelet Count 265 146 - 337 K/uL Mean Platelet Volume 9.7 8.7 - 12.3 fL DIFF STATUS Electronic Differential Segs + Bands Auto 52.8 % Immature Grans % 0.2 % Lymphocyte % Auto 29.7 % Monocyte % Auto 8.9 % Eosinophil % Auto 7.7 % Basophil % Auto 0.7 % Nucleated RBC 0.0 <=0.2 /100 WBC Segs + Bands,Absolute Auto 4.60 1.57 - 6.19 K/uL Immature Grans Absolute <0.04 <=0.07 K/uL Abs Lymph Auto 2.58 0.83 - 3.57 K/uL Abs Andrew Auto 0.77 0.24 - 0.93 K/uL Abs Eos Auto 0.67 (H) 0.00 - 0.48 K/uL Abs Baso Auto 0.06 0.00 - 0.09 K/uL documented in this [facility]03-21-2024 Miscellaneous Notes* Addendum Note - Abdirahman Rutherford MD - 01/04/2024 11:10 AM EDTAddended by: ABDIRAHMAN RUTHERFORD on: 01/05/2024 01:29 PM Modules accepted: Orders documented in this encounterOS[facility]03-21-2024 Note* Addendum Note - Abdirahman Rutherford MD - 01/04/2024 11:10 AM EDTAddended by: ABDIRAHMAN RUTHERFORD on: 01/05/2024 01:29 PM Modules accepted: Orders [facility]02-12-[facility]24 Hospital Discharge instructions Patient Education 11/27/2023 04:35:03 Carpal Tunnel Syndrome Carpal Tunnel Syndrome Carpal tunnel syndrome is a painful condition of the wrist and arm. It is caused by pressure on themedian nerve. The median nerve is one of the nerves that give feeling and movement to the hand. It passes through a tunnel in the wrist called the carpal tunnel. This tunnel is made up of bones and ligaments. Narrowing of this tunnel or swelling of the tissues inside the tunnel puts pressure on themedian nerve. This causes numbness, pins and needles, [...] bent back when typing. You may use [id number] pain medicine to treat pain and inflammation, [...] Your whole arm becomes swollen or weak [id number] [employer]. [address] [place] [address]. All rights reserved. This information is not intended as a substitute for professional medical care. Always follow yourhealthcare professional's instructions. Follow Up Care 11/27/2023 04:25:18 With:DO MONIQUE OLVERA DO Address: [address] [place] [id number] When:2-4 days [facility] 02-12-2024 Note Discharge Instructions Thank you for allowing [facility] to assist you with your healthcare needs. The following is importantdischarge information regarding your hospital visit. Diagnosis from Today's Visit Carpal tunnel syndrome of right wrist What to Do Next Instructions from Your Care Team No qualifying data available. Post Acute Orders No qualifying data available. You Need to Schedule the Following Appointments Follow Up with DO MONIQUE OLVERA DO When Within 2-4 days Where: [address] [place] [address] [address] [place] [address] Allergies Bentyl (rash) Deltasone (prednisone) (swelling) [...] and or supplements as they may interact withyour home medications. Please take this list to [...] arm. It is caused by pressure on themedian nerve. The median nerve is one of the nerves that give feeling and movement to the hand. It passes through a tunnel in the wrist called the carpal tunnel. This tunnel is made up of bones and ligaments. Narrowing of this tunnel or swelling of the tissues inside the tunnel puts pressure on themedian nerve. This causes numbness, pins and needles, [...] bent back when typing. You may use [id number]-[id number] pain medicine to treat pain and inflammation, [...] Your whole arm becomes swollen or weak [id number] [employer]. [address] [place] [address], [place] [address]. All rights reserved. This information is not intended as a substitute for professional medical care. Always follow yourhealthcare professional's instructions. Additional Information VACCINATE! IT SAVES LIVES! Members of the community who have not yet received the COVID-19 vaccine and would like to receive it can visit one of [facility] vaccine clinics. There are many vaccine clinic locations within the [facility]. For locations and available times, please visit www.[email or web address].[place].gov/. It is important to note that some COVID mobile vaccine clinics are held outdoors and may be canceled in rainy or stormy conditions. To learn more about pediatric vaccinations (ages 5-11), we invite you to visit the [facility] webpage. https://www.[email or web address].org/pages/0237-Lbpjn-Ebziivmnyly-Fwfmlburhl-Gqqhp-Zvm stions.htmlTo learn more about the COVID-19 vaccine, we invite you to visit the CDC website for a list of frequently asked questions. https://www.cdc.gov/coronavirus/2019-ncov/vaccines/faq.html [facility] Patient Portal Access Instructions: Stay connected with your healthcare team and access your personal medical information anytime with the [facility] Patient Portal. If you would like a full copy of your medical records please contact the [facility] Medical Records Department Monday through Monday between 8a.m. and 4:30p.m. Please follow the directions below to access the portal: 1.Access the email account you provided upon registration to the hospital.2.Look for an invitation email from [facility].3.Open the email and access the invitation link: Accept Invitation to [facility]form4.Fill in the required ayon to create your account. Sign into [email or web address] with your username and password that you [...] you will allow to register on the [facility] Patient Portal for access to your information. You can also access the [facility] Patient Portal on the Vokle. Simply click on Health Records under [employer] and then click on the Sonia logo. HOW TO SAFELY DISPOSE OF PRESCRIPTION MEDICATIONS Please use one of the following methods to safely dispose of your unused medications. 1.Use a drug disposal kit: the drug disposal pouch allows you to safely discard your old and unuseddrugs. Ask your nurse to give you one when you are discharged.2.Visit a local take-back location: Many local pharmacies and police departments have programs that collect old and unwanted prescriptiondrugs. Call your local pharmacy or go to http://[employer]/3K5Dp8q to find one close to you.3.Make use of household items: Use cat litter or old coffee grounds to dispose medications if other options arenot available. Mix your drugs with these household products, seal them in an airtight container andthrow it into the garbage. Call [facility]: [phone] to be sure your drugs can be [...] drowsiness, such as benzodiazepines, also known as benzos,including diazepam and alprazolam, muscle relaxants or sleep aids. Never sell or share prescriptionopioids. This is illegal. Store opioids in a secure place and out of reach of others (including children, family, friends and visitors). The last page(s) of this document has been signed and retained as a CHART COPY Signatures Patient Education Materials Carpal Tunnel Syndrome Medication Leaflets My discharge plan and instructions have been reviewed and explained to me and I,JAIRO ADKINS JRd my current condition and have read and understand these discharge instructions. I have received a written copy of the plan/instructions. If I have questions, I am aware that I should contact my doctor. Patient/Car Racer Signature: Date/Time: Relationship to Patient: Witness Name/Signature: Date/Time: [facility]02-01-[facility]24 History of Present illness Narrative * Danya Glass, - 11/16/2023 8:00 AM EST CHIEF COMPLAINT Chief Complaint Patient presents with Follow-up HISTORY OF PRESENT ILLNESS Jairo Lillie Adkins JrLuis Armando is a 43 y.o. male with a [...] he does not have headaches frequently. Denies anyissues with his memory. He has noticed some [...] taking: Reported on 06/29/2023) Continuous Blood Gluc Hip Hop [employer]formers (FreeStyle Roxi 14 Day [place]) Device Use to check blood sugar using the Freestyle Roxi sensors Continuous Blood Gluc Sensor (FreeStyle Roxi 14 Day Sensor) Misc Use to check blood sugars using the Freestyle Roxi [place]. Change sensor every 14 days. CUSTOM MEDICATION [...] and is negative except as noted in [place]. PHYSICAL EXAM There were no vitals filed [...] LD Total 147 100 - 190 U/L IPJKTP51 IGG AB Result Value Ref Range RUYQII77 IgG Antibody 18.1 (H) <=12.0 U/mL [id number] ACTIVITY Result Value Ref Range RDQXTC50 Activity 94 >=40 % UPXUNP08 Inhibitor Not Indicated CBC AND ELECTRONIC DIFF [...] Auto 2.42 0.83 - 3.57 K/uL Abs Andrew Auto 0.82 0.24 - 0.93 K/uL Abs [...] count WNL. We are still awaiting his NNNAOW18 activity to help predict the risk of relapse over the next 3months. We will continue to monitor him for long-term complication that include short-term memory issues as well as cardiovascular complications and headaches. Part of that is his enrollment in our TTP cardiac MR study. He will come back to see us in 3 months, but we will be in contact with him with the results of his RKRNSG85 activity. Regarding ear pain, most likely viral otitis media. Expect pain to improve over the next several days. If pain worsens, patient should follow up with PCP or urgent care. Patient seen with Dr. Rutherford. Danya Glass DO Heme/Onc Fellow, PGY-6 I interviewed and examined Mr Adkins and I agree with the findings and plan as dictated by Dr. Glass. 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 [id number] was normal suggesting a low risk for relapse. He will RTC in 3 months. Jose Rutherford * Angie Chou RN - 11/16/2023 8:00 AM EST Pt here for follow-up visit.Says he feels [...] and type of tubes) Clinical Trial Number: [facility] TMA Time specimen obtained:0827 Color or Research Tube Number of tubes drawn Lavender 3 ml EDTA Lavender 4ml EDTA 4 Lavender 6 ml EDTA Yellow: 8.5 ml ACD glass Green: 6.0 ml Sodium Heparin Red: 6.0 ml Serum Blue: 2.7 ml Na Citrate 4 Gold: 5.0 ml SST PAX-R: Paxgene Red PAX-B: Paxgene Blue Other (please specify): [facility] Discharge instructions Patient Education 11/03/2023 10:14:50 Carpal Tunnel Syndrome Carpal Tunnel Syndrome Carpal tunnel syndrome is a painful condition of the wrist and arm. It is caused by pressure on themedian nerve. The median nerve is one of the nerves that give feeling and movement to the hand. It passes through a tunnel in the wrist called the carpal tunnel. This tunnel is made up of bones and ligaments. Narrowing of this tunnel or swelling of the tissues inside the tunnel puts pressure on themedian nerve. This causes numbness, pins and needles, [...] bent back when typing. You may use bidy-xrg-xfboyqy pain medicine to treat pain and inflammation, [...] Your whole arm becomes swollen or weak [id number] [employer]. [address] [place] [address], [place] [address]. All rights reserved. This information is not intended as a substitute for professional medical care. Always follow yourhealthcare professional's instructions. Follow Up Care 11/03/2023 09:38:20 With:HENRY BARAJAS MD Address: [address] [facility] [address] [place] [address] [phone] When:2-4 days With:Follow up with primary care provider Address:Unknown When:2-4 days With:Call Physician Referral Address:Unknown When:2-4 days [facility] 01-19-2024 Note Discharge Instructions Thank you for allowing [facility] to assist you with your healthcare needs. The following is importantdischarge information regarding your hospital visit. Diagnosis from [...] Schedule the Following Appointments Follow Up with HNERY BARAJAS MD When Within 2-4 days Where: [id number] [place] [phone] Follow Up with Follow up with primary [...] and or supplements as they may interact withyour home medications. What How Much When Instructions [...] arm. It is caused by pressure on themedian nerve. The median nerve is one of the nerves that give feeling and movement to the hand. It passes through a tunnel in the wrist called the carpal tunnel. This tunnel is made up of bones and ligaments. Narrowing of this tunnel or swelling of the tissues inside the tunnel puts pressure on themedian nerve. This causes numbness, pins and needles, [...] bent back when typing. You may use hmrg-dvo-ilnmevy pain medicine to treat pain and inflammation, [...] Your whole arm becomes swollen or weak [id number] [employer]. [address] [place] [address], [place] [address]. All rights reserved. This information is not intended as a substitute for professional medical care. Always follow yourhealthcare professional's instructions. Additional Information VACCINATE! IT SAVES LIVES! Members of the community who have not yet received the COVID-19 vaccine and would like to receive it can visit one of [facility] vaccine clinics. There are many vaccine clinic locations within the [facility]. For locations and available times, please visit www.[email or web address].[place].gov/. It is important to note that some COVID mobile vaccine clinics are held outdoors and may be canceled in rainy or stormy conditions. To learn more about pediatric vaccinations (ages 5-11), we invite you to visit the [facility] webpage. https://www.[email or web address].org/pages/6451-Tbsqa-Hkwyhdidqtv-Sgngwkgacp-Szguq-Slw stions.htmlTo learn more about the COVID-19 vaccine, we invite you to visit the CDC website for a list of frequently asked questions. https://www.cdc.gov/coronavirus/2019-ncov/vaccines/faq.html [facility] Patient Portal Access Instructions: Stay connected with your healthcare team and access your personal medical information anytime with the [facility] [employer] Patient Portal. If you would like a full copy of your medical records please contact the [facility] Medical Records Department Monday through Monday between 8a.m. and 4:30p.m. Please follow the directions below to access the portal: 1.Access the email account you provided upon registration to the [facility].2.Look for an invitation email from [facility].3.Open the email and access the invitation link: Accept Invitation to SoniaRUNform4.Fill in the required ayon to create your account. Sign into [email or web address] with your username and password that you [...] you will allow to register on the [facility] [employer] Patient Portal for access to your information. You can also access the [facility] Patient Portal on the Vokle. Simply click on Health Records under [employer] and then click on the [facility]onia logo. HOW TO SAFELY DISPOSE OF PRESCRIPTION MEDICATIONS Please use one of the following methods to safely dispose of your unused medications. 1.Use a drug disposal kit: the drug disposal pouch allows you to safely discard your old and unuseddrugs. Ask your nurse to give you one when you are discharged.2.Visit a local take-back location: Many local pharmacies and police departments have programs that collect old and unwanted prescriptiondrugs. Call your local pharmacy or go to http://[employer] [place].[employer]/0E2Ox2d to find one close to you.3.Make use of household items: Use cat litter or old coffee grounds to dispose medications if other options arenot available. Mix your drugs with these household products, seal them in an airtight container andthrow it into the garbage. Call [facility]: [phone] to be sure your drugs can be [...] drowsiness, such as benzodiazepines, also known as benzos,including diazepam and alprazolam, muscle relaxants or sleep aids. Never sell or share prescriptionopioids. This is illegal. Store opioids in a secure place and out of reach of others (including children, family, friends and visitors). The last page(s) of this document has been signed and retained as a CHART COPY Signatures Patient Education Materials Carpal Tunnel Syndrome Medication Leaflets My discharge plan and instructions have been reviewed and explained to me and I,JAIRO ADKINS JRd my current condition and have read and understand these discharge instructions. I have received a written copy of the plan/instructions. If I have questions, I am aware that I should contact my doctor. Patient/Car Racer Signature: Date/Time: Relationship to Patient: Witness Name/Signature: Date/Time: [facility]12-02-[facility]23 Emergency department Note* Nallely Roland RN - 09/16/2023 3:55 PM EST Discharge instructions, follow up care, and pain management discussed with patient. All questions answered, there are no further questions at this time. Patient ambulated off the unit independently at discharge. Nallely Roland RN 09/16/23 1556 [id number] Emergency department Note* Nallely Roland RN - 09/16/2023 3:55 PM EST Discharge instructions, follow up care, and pain management discussed with patient. All questions answered, there are no further questions at this time. Patient ambulated off the unit independently at discharge. Nallely Roland RN 09/16/23 1556 * Ok Adler DO - 09/16/2023 2:02 PM ESTAssociated Order(s): Incision and Drainage EMERGENCY DEPARTMENT ENCOUNTER Pt Name: Jairo Adkins Birthdate 1980 Date of evaluation: 09/16/2023 ED Provider: Ok Adler DO CHIEF COMPLAINT Chief Complaint Patient presents [...] kg (290 lb) Height: 1.753 m (5' 9) Medications lidocaine-EPINEPHrine (Xylocaine W/EPI) 1 %-1:802636 injection 10 mL (has no administration in timerange) oxyCODONE-acetaminophen (Percocet) 5-325 MG per tablet 1 tablet (1 tablet Oral Given 09/16/23 3822) Patient presents with gluteal abscess to the [...] PROCEDURES Incision and Drainage Performed by: Ok Adler DO Authorized by: Ok Adler DO Consent: Consent obtained: Verbal Consent given by: Patient Risks discussed: Bleeding, incomplete drainage, pain and infection Alternatives discussed: Delayed treatment and referral Burns protocol: Patient identity confirmed: Verbally with patient [...] open Packing materials: 1/2 in gauze Amount 1/2: 6in Post-procedure details: Procedure completion: Tolerated well, no immediate complications FINAL IMPRESSION 1. Gluteal abscess DISPOSITION Discharge 09/16/2023 03:48:50 PM PATIENT REFERRED TO: Izabela Turner [address] [place] [phone] Go in 3 days For wound re-check DISCHARGE MEDICATIONS: Discharge Medication List as of 09/16/2023 3:52 PM START taking these medications Details HYDROcodone-acetaminophen (Clairfield) 5-325 MG tablet Take 1 tablet by [...] are any questions or concerns please feel freeto contact the dictating provider for clarification.) Ok Adler DO (electronically signed) Emergency Medicine Provider Ok Adler DO 09/16/23 1712 * Nallely Roland RN - 09/16/2023 2:02 PM EST Patient ambulatory to room 15 presenting with c/o of left buttock abscess. He says he noticed it onMonday, and then on Monday attempted compresses and attempted to self-sarmad with a razor blade. Hereports since then it has grown in size and it more painful. Vital signs are stable. He denies fevers or chills. Patient was provided with gown to change into. Call light in reach. documented in this [facility]12-02-2023 Hospital Discharge instructions* Discharge Instructions* Ok Adler DO - 09/16/2023 3:49 PM EST Keep taking the antibiotics you are prescribed at the other ER. Doxycycline is appropriate coveragefor this type of infection. Please keep the wound clean and dry. * Attachments The following attachments cannot be sent through Care Everywhere. * Abscess Drainage, Percutaneous Discharge Instructions (Trinidadian) documented in this [facility]12-02-2023 Emergency department Triage note* Nallely Roland RN - 09/16/2023 2:02 PM EST Patient ambulatory to room 15 presenting with c/o of left buttock abscess. He says he noticed it onMonday, and then on Monday attempted compresses and attempted to self-sarmad with a razor blade. Hereports since then it has grown in size and it more painful. Vital signs are stable. He denies fevers or chills. Patient was provided with gown to change into. Call light in reach. [facility]12-02-2023 Physician Emergency department Note* Ok Adler DO - 09/16/2023 2:02 PM ESTAssociated Order(s): Incision and Drainage EMERGENCY DEPARTMENT ENCOUNTER Pt Name: Jairo Adkins Birthdate 1980 Date of evaluation: 09/16/2023 ED Provider: Ok Adler DO CHIEF COMPLAINT Chief Complaint Patient presents [...] kg (290 lb) Height: 1.753 m (5' 9) Medications lidocaine-EPINEPHrine (Xylocaine W/EPI) 1 %-1:298330 injection 10 mL (has no administration in timerange) oxyCODONE-acetaminophen (Percocet) 5-325 MG per tablet 1 [...] PROCEDURES Incision and Drainage Performed by: Ok Adler DO Authorized by: Ok Adler DO Consent: Consent obtained: Verbal Consent given by: Patient Risks discussed: Bleeding, incomplete drainage, pain and infection Alternatives discussed: Delayed treatment and referral Burns protocol: Patient identity confirmed: Verbally with patient [...] open Packing materials: 1/2 in gauze Amount 1/2: 6in Post-procedure details: Procedure completion: Tolerated well, no immediate complications FINAL IMPRESSION 1. Gluteal abscess DISPOSITION Discharge 09/16/2023 03:48:50 PM PATIENT REFERRED TO: Izabela Turner [address] [place] [id number] Go in 3 days For wound re-check DISCHARGE MEDICATIONS: Discharge Medication List as of 09/16/2023 3:52 PM START taking these medications Details HYDROcodone-acetaminophen ([place]air[place]) 5-325 MG tablet Take 1 tablet by [...] are any questions or concerns please feel freeto contact the dictating provider for clarification.) Ok Adler DO (electronically signed) Emergency Medicine Provider Ok Adler DO 09/16/23 1712 [facility]05-01-2023 History of Present illness Narrative* Sonido Dyer, [facility] - 02/13/2023 9:30 AM EDT Images from the original note were not [...] blood sugars using Freestyle Roxi w/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 have history of carpal tunnel. All of his fingers however have a burning sensation. He is diabetic. He is on Trulicity. He denies fever, chills night sweats. He denies history of gout or pseudogout. Hehas normal renal function. There is a remote history of peptic disease. He denies black or maroon-colored stool. Patient is not well-groomed and close are not clean. Patient denies fever, chills night sweats. Movement of his right hand and rightshoulder causes increased pain. Patient denies prior history of injury to the right shoulder or right hand. Prior similar symptoms: Yes Recent Illness/Hospitalization: No PFSH PFSH Medical History Anxiety Bipolar disorder Depression Diabetes Migraines Smoker Substance abuse TTP (thrombotic thrombocytopenic purpura) Home Medications dulaglutide 0.75 mg/0.5 mL subcutaneous pen injector (Trulicity) 0.75 mg subcut QWEEK 01/06/22 [History Last Taken Unknown] hydrocodone-acetaminophen 5-325mg 5mg-325mg 1 tab PO Q6H PRN pain 3 days #12 tabs 11/30/23 [Rx Last Taken Unknown] cyclobenzaprine 10 mg tablet 10 mg PO TID PRN Muscle Spasm #20 TABLETS 12/12/23 [Rx Last Taken Unknown] lidocaine 5 % topical patch (Lidoderm) 1 patch topical DAILY #15 ea 12/12/23 [Rx Last Taken Unknown] gabapentin 300 mg capsule 300 mg PO BID #90 caps 12/23/23 [Rx Last Taken Unknown] naproxen 500 mg tablet 500 mg PO BID #14 tabs 12/23/23 [Rx Last Taken Unknown] Allergy/AdvReac Type Severity Reaction Status Date / Time adhesive Allergy Rash Verified 12/01/23 10:36 dicyclomine HCl [From Bentyl] Allergy Hives Verified 12/01/23 10:36 fentanyl Allergy Hives Verified 12/01/23 10:36 Latex, Natural Rubber Allergy Rash Verified 12/01/23 10:36 methadone Allergy Other Verified 12/01/23 10:36 prednisone Allergy Rash Verified 12/01/23 10:36 tramadol HCl [From Ultram] Allergy Hives Verified 12/01/23 10:36 aspirin AdvReac Other Verified 12/01/23 10:36 ketorolac tromethamine AdvReac Upset Verified 12/01/23 10:36 [From Toradol] Stomach Family History Other Diabetes Surgical History H/O eye surgery Social History household members: spouse Smoking Status: Current every day smoker tobacco type: cigarettes substance use type: former substance user ROS ROS ED Constitutional Constitutional ED: Denies chills, fever(s), subjective, sweats or weight loss Eyes Eyes: Denies blurry vision, change in vision or diplopia ENT ENT ED: Denies ear pain or rhinorrhea Cardiovascular Cardiovascular: Denies chest pain, palpitations or racing heartbeat Respiratory/Chest Respiratory/Chest: Denies cough, dyspnea or dyspnea on exertion Gastrointestinal Gastrointestinal: Denies nausea or vomiting Musculoskeletal Musculoskeletal: Reports other Details: Per HPI negative ; Denies back pain, myalgias or neck pain Integumentary Denies rash Neurologic Neurologic: Reports paresthesias RUE (Right hand including thumb and fingers) Psychiatric Psychiatric: Reports anxiety and depression Endocrine Endocrinology: Denies cold intolerance or heat intolerance Hematologic/Lymphatic Hematologic/Lymphatic: Denies easy bleeding or easy bruising EXAM Physical Exam Const Vital Signs: 12/23/23 05:21 Temperature 97.9 F Temperature Source Oral Blood Pressure 132/99 H Blood Pressure Mean 110 Positive well nourished, well developed, obese and unkempt General Appearance ED: unkempt, well developed and NAD; Negative for cyanotic ordiaphoretic Nutritional Appearance: obese HEENT Reports moist mucous membranes normocephalic and atraumatic Eyes PERRL and EOMs intact bilaterally Neck full ROM and supple Chest Wall inspection of chest normal and palpation of chest normal Resp normal respiratory effort and clear to auscultation bilaterally Cardio regular rate, regular rhythm, S1 normal heart sound, S2 normal heart sound and no murmurs Back/Spine Cervical Spine: Negative for cervical spine tenderness Thoracic Spine / Upper Back: Negative for thoracic spinal tenderness Extremity normal to inspection and full ROM Extremity Narrative: There is pain ovation over the proximal humerus and glenohumeral joint. There is no fluctuance. There is no erythema or warmth. There is no pain ovation over the AC joint. Axillary, median, radial and ulnar function intact. Patientreports decreased sensation in his fingers and thumb on the right side compared to left. Radial pulses palpable. There is pain to touch. General Extremety ED: Negative for edema or other findings General Extremity: Negative for edema or other findings Neuro oriented x3, CN's II-XII intact bilaterally, no focal motor deficits and No no sensory deficits noted Sensorium / Orientation: alert Psych mental status grossly normal Appearance: unkempt Skin General Skin Exam: Negative for petechiae Lesions: no lesions Rashes: no rashes MDM MDM MDM Narrative Medical decision making narrative: Patient's right hand pain is consistent with neuropathy most likely due to his diabetes. X-ray of the shoulder was obtained to determine if he has evidence ofcalcific supraspinatus tendinitis versus impingement syndrome versus osteoarthritis. Patient did not inform her that he has been here for the same complaint. Has been here several times after reviewing records. Imaging was performed this year. There is no acute process noted. In light of this we willcancel the x-ray of the right shoulder. Since patient is diabetic and describing the pain as a burning numb sensation in his right hand and digits will treat with gabapentin. History & Record Review Additional record(s) reviewed:: Prior ED visit (Patient had x-rays of the cervical spine which revealed degenerative disc disease. X-ray of the shoulder in October which revealed no acute findings.) Treatment and Re-Evaluation Narrative: Patient was informed at 0558 that the x-ray was canceled since he recently had an x-ray and the was no significant abnormality. Furthermore there is no history of trauma. Patient was discharged with prescription for gabapentin. She did not follow-up with his doctor. Discharge Plan Triage Chief Complaint: Upper Extremity Injury ED Provider: Antonio Montgomery Dx/Rx/DC Orders Clinical Impression: Acute pain of right shoulder, Neuropathy, BMI 40.0-44.9, adult, Diabetes mellitus, new onset Instructions: ED Neuropathy, Peripheral Prescriptions: New naproxen 500 mg tablet 500 mg PO BID Qty: 14 0RF gabapentin 300 mg capsule 300 mg PO BID Qty: 90 0RF Rx Instructions: 1 twice a day for 3 days then 1 3 times a day No Action Trulicity 0.75 mg/0.5 mL pen injector 0.75 mg SUBCUT QWEEK hydrocodone-acetaminophen 5-325 mg tablet 1 tab PO Q6H PRN (Reason: pain) 3 Days Qty: 12 0RF cyclobenzaprine 10 mg tablet 10 mg PO TID PRN (Reason: Muscle Spasm) Qty: 20 0RF lidocaine [Lidoderm] 5 % adhesive patch,medicated 1 patch topical DAILY Qty: 15 0RF Rx Instructions: leave on most painful area for up to 12 hrs Primary Care Provider: Care Physician,No Primary Referrals: Care Physician,No Primary [Primary Care Provider] - Doctor,Your [Non-Staff] - 5-7 Days Activity Restrictions/Additional Instructions: You to follow-up with your doctor. The name of your doctor is located on your insurance card issued to you by care source. Disposition Disposition: Home, Self Care What to do if you have Problems For any increased pain, shortness of breath, bleeding, nausea or vomiting, chestpain, or any unexpected problems, contact your Primary Care Provider. Call [facility] ([phone]) or report to the closest Emergency Room. Call 911 if necessary. 12/23/23 0605 <Electronically signed by Antonio Montgomery MD> Cosigner Signature (if applicable): CC: No Primary Care Physician ~ Signed [facility] Work Phone: Evaluation + Plan note No data available for this section [facility] Evaluation noteNo assessment information available [facility] Work Phone: Evaluation note* Diagnosis Myalgia- Primary Mylagia and myositis, unspecified Chronic bilateral low back pain with left-sided sciatica Strain of lumbar region, initial encounter Class 3 severe obesity due to excess calories with body mass index (BMI) of 40.0 to 44.9 in adult, unspecified whether serious comorbidity present Chronic bilateral low back pain with left-sided sciatica Myalgia Mylagia and myositis, unspecified Strain of lumbar region, initial encounter Class 3 severe obesity due to excess calories with body mass index (BMI) of 40.0 to 44.9 in adult, unspecified whether serious comorbidity present [facility] Diagnosis Chronic bilateral low back pain with left-sided sciatica Myalgia Mylagia and myositis, unspecified Strain of lumbar region, initial encounter Class 3 severe obesity due to excess calories with body mass index (BMI) of 40.0 to 44.9 in adult, unspecified whether serious comorbidity present [facility] Diagnosis Chronic bilateral low back pain with left-sided sciatica- Primary [facility] Diagnosis 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 Bilateral foot pain Pain in limb Postcalcaneal bursitis of right foot [facility] Diagnosis Type 2 diabetes mellitus without complication, with long-term current use of insulin- Primary 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 Postcalcaneal bursitis of right foot [facility] Diagnosis 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 [facility] Diagnosis Insertional Achilles tendinopathy- Primary Retrocalcaneal exostosis Exostosis of unspecified site Postcalcaneal bursitis of right foot Bilateral foot pain Pain in limb [facility] Diagnosis Myalgia- Primary Mylagia and myositis, unspecified Class 3 severe obesity due to excess calories with body mass index (BMI) of 40.0 to 44.9 in adult, unspecified whether serious comorbidity present Chronic bilateral low back pain without sciatica Cervicalgia Muscle spasm of back Other symptoms referable to back [facility] Diagnosis 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 Type 2 diabetes mellitus without complication, with long-term current use of insulin Encounter for follow-up [facility] Diagnosis Insertional Achilles tendinopathy- Primary Other chronic pain Chronic heel pain, right Chronic heel pain, left [facility] Diagnosis Insertional Achilles tendinopathy- Primary Other chronic pain Chronic heel pain, right Chronic heel pain, left Encounter for diabetic foot exam [place]ertoe, bilateral [facility] Diagnosis Insertional Achilles tendinopathy [facility] Diagnosis 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 [facility] Diagnosis Well adult exam- [...] vaccination Need for prophylactic vaccination with combined [id number] (DTP) vaccine [facility] Diagnosis Type 2 diabetes mellitus without complication, with long-term current use of insulin- Primary [facility] Diagnosis Gluteal abscess- Primary Cellulitis and abscess of buttock [facility] Diagnosis 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 [facility] Diagnosis Onset Date Resolution Status Cervical radiculopathy at C6 acute Nicotine addiction chronic TTP (thrombotic thrombocytopenic purpura) [facility] Work Phone: Evaluation note* Diagnosis 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 [facility] Diagnosis Bilateral shoulder pain, unspecified chronicity- Primary Bilateral shoulder pain, unspecified chronicity Bilateral shoulder pain, unspecified chronicity [facility] Diagnosis Bilateral shoulder pain, unspecified chronicity [facility] Diagnosis 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 Bilateral shoulder pain, unspecified chronicity Encounter for routine dental examination [facility] Diagnosis Onset Date Resolution Status Cervical radiculopathy at C6 acute Nicotine addiction chronic TTP (thrombotic thrombocytopenic purpura) chronic Hyperosmolar hyperglycemic state (HHS) acute [facility] Work Phone: Evaluation note* Diagnosis Onset Date Resolution Status Cervical radiculopathy at C6 acute Nicotine addiction chronic TTP (thrombotic thrombocytopenic purpura) chronic Hyperosmolar hyperglycemic state (HHS) acute Morbid obesity with BMI of 40.0-44.9, adult acute Type 2 diabetes mellitus acu te Nicotine addiction [facility] Work Phone: Evaluation note* Diagnosis Hyperglycemia- Primary Other abnormal glucose Hyperglycemia Other abnormal glucose body mass index of 40.0-49.9 Hyperglycemia due to diabetes mellitus Hyponatremia Hyposmolality and/or hyponatremia [facility] Diagnosis Cellulitis of buttock- Primary Cellulitis and abscess of buttock documented in this [facility] Diagnosis Rotator cuff syndrome of right shoulder- Primary Disorders of bursae and tendons in shoulder region, unspecified [facility] Diagnosis Rotator cuff syndrome of right shoulder- Primary Disorders of bursae and tendons in shoulder region, unspecified Calcific tendinitis Calcium deposits in tendon and bursa [facility] Diagnosis 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 [facility] Diagnosis 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 Rep #:[id number] : 1980 44 From: Mainor Woods DO PCP: Care Physician,No Primary Status :ADM IN Location: ICU CVICU20 4-1 HPI - General General Date of Admission: 02/23/24 Date of Service: 02/23/24 Chief Complaint: Severe Hyperglycemia. HPI Narrative JAIRO ADKINS, is a 44 M with a past medical history of tobacco abuse, history of substance abuse, morbid obesity; BMI 41.3 this admission, history of TTP, bipolar disorder, migraine headaches, and diabetes mellitus type 2; uncontrolledwith hyperglycemia who presents to [facility] ER complaining of highly elevated blood glucose. Mr. Adkins reports his symptoms began approximately 2 months prior to admission after he ran out of TrulicPromisePay and was not able to obtain a refill. He then noticed persistent elevation of his blood glucose accompanied by polyuria, polydipsia and polyphagia. When he checked hisblood sugar earlier today was 890 mg/dL so he decided to come in for further evaluation and treatment. He denies any history of DKA or HONK. He also deniesassociated fever, chills or vomiting but he does admit to nausea and malaise. It is also important to note that this patient has relatively poor insight into his complex medical condition. In the ER he was noted to have evidence of HHS with blood glucose of 890 mg/dL along with negative serum acetone and an unremarkable VBG and then he left AMA and came back to the ER again this morning and he was then admitted to the ICU for ongoing care for stay that is expected to be greater than 2 midnights. [facility] Medical History Anxiety Bipolar disorder Depression Diabetes Migraines Smoker Substance abuse TTP (thrombotic thrombocytopenic purpura) Home Medications dulaglutide 0.75 mg/0.5 mL subcutaneous pen injector (Trulicity) 0.75 mg subcut QWEEK 01/06/22 [History Last Taken Unknown] hydrocodone-acetaminophen 5-325mg 5mg-325mg 1 tab PO Q6H PRN pain 3 days #12 tabs 11/30/23 [Rx Last Taken Unknown] Allergy/AdvReac Type Severity Reaction Status Date / Time adhesive Allergy Rash Verified 02/23/24 04:43 dicyclomine HCl [From Bentyl] Allergy Hives Verified 02/23/24 04:43 fentanyl Allergy Hives Verified 02/23/24 04:43 Latex, Natural Rubber Allergy Rash Verified 02/23/24 04:43 methadone Allergy Other Verified 02/23/24 04:43 prednisone Allergy Rash Verified 02/23/24 04:43 tramadol HCl [From Ultram] Allergy Hives Verified 02/23/24 04:43 aspirin AdvReac Other Verified 02/23/24 04:43 ketorolac tromethamine AdvReac Upset Verified 02/23/24 04:43 [From Toradol] Stomach Family History Other Diabetes Surgical History H/O eye surgery Social History household members: spouse Smoking Status: Current every day smoker tobacco type: cigarettes substance use type: former substance user ROS ROS Narrative Review of systems: General: Patient denies fever or chills HENT: Denies headache, denies stuffy nose, denies sore throat EYES: Denies changes in vision or discharge from eyes. Resp: Denies cough, denies shortness of breath Cardiac: Denies chest pain, palpitations or heart racing. GI: Denies abdominal pain, denies changes in bowel, had some nausea : Patient admits to excessive urination as per HPI. Extremity: Denies swelling Musculoskeletal: Feels somewhat generally weak and unwell but denies arthralgiasor myalgias. Neuro: Patient denies headache, paresthesias or focal neurologic weakness. Heme: Denies any bleeding or bruising Skin: Denies rashes Psychiatric: No complaints voiced related to uncontrolled depression or anxiety. Endocrine: Patient admits to polyuria, polydipsia and polyphagia as per HPI. The rest of the 14 point ROS was negative except for positives in HPI. Vital Signs Vital Signs Vital Signs: 02/23/24 04:39 Temperature 98.4 F Temperature Source Oral Pulse Rate 94 Respiratory Rate 18 Blood Pressure 154/88 H Blood Pressure Mean 110 Pulse Ox 95 Oxygen Delivery Method Room Air Weight Weight: 279 lb 1.683 oz Body Mass Index (BMI) 41.2 Physical Exam Const alert, oriented x3 and no apparent distress Constitutional Narrative: Patient is morbidly obese. General Appearance: cooperative HEENT normocephalic, head/scalp atraumatic and hearing grossly normal bilaterally HEENT Narrative: Mucous membranes dry. Eyes PERRL and EOMs intact bilaterally Neck no lymphadenopathy and supple Resp normal respiratory effort, no retractions, no use of accessory muscles and clearto auscultation bilaterally Cardio regular rate and regular rhythm GI normal to inspection, nondistended, normoactive bowel sounds, soft to palpation,non-tender and non-distended Extremity normal to inspection, full ROM and no clubbing, cyanosis or edema Skin Skin Narrative: Patient has no evidence of abscess, jaundice or rash. Neuro oriented x3, CN's II-XII intact bilaterally, moves all extremities and no focal motor deficits Sensorium / Orientation: awake, alert, oriented to person, oriented to place andoriented to time Speech: speech normal Psych Psych Narrative: Patient has a flat, depressed affect with seemingly poor insight into his complex medical condition. Mood & Affect: depressed Results Medical Records Data Attestation: I reviewed the patient's medical records Lab / Micro Data Attestation: I reviewed the patient's lab results. 02/23/24 04:50 02/23/24 04:50 Labs: Laboratory Results - last 24 hr 02/23/24 04:50: WBC 9.0, RBC 5.31, Hgb 16.1, Hct 47.0, MCV 88.5, MCH 30.3, MCHC 34.3, RDW Std Deviation 42.5, RDW Coeff of Serafin 13.0, Plt Count 219, MPV 10.9, Immature Gran % (Auto) 0.300, Neut % (Auto) 54.4, Lymph % (Auto) 28.9, Andrew % (Auto) 9.4, Eos % (Auto) 6.3 H, Baso % (Auto) 0.7, Absolute Neuts (auto) 4.9, Absolute Lymphs (auto) 2.61, Nucleated RBC % 0 Assessment & Plan Assessment/Plan (1) Hyperosmolar hyperglycemic state (HHS): (2) Type 2 diabetes mellitus: QUALIFIERS: Diabetes mellitus complication status: without complication Diabetes mellitus retirement insulin use: without manager terminal use Qualified Code(s): E11.9 - Type 2 diabetes mellitus without complications (3) Morbid obesity with BMI of 40.0-44.9, adult: (4) Nicotine addiction: QUALIFIERS: Nicotine product type: unspecified Substance use status: unspecified nicotine-induced disorder Qualified Code(s): F17.209 - Nicotine dependence, unspecified, with unspecified nicotine-induced disorders PLAN: Plan 1. HHS with blood glucose of 890 mg/dL along with negative serum acetone and anunremarkable VBG - Admit to ICU. Continue IV insulin drip begun in the ER and titrate to decrease sugars slowly back to normal range. We will clinical dietitian to help this patient with diabetic teaching. 2. Diabetes mellitus type 2; uncontrolled with hyperglycemia after running out of TrUrbanIndo since December 2023 precipitating #1 - Resume IV insulin at this time and then when sugars are controlled consider converting him back to his previousTrulicity dose. Check hemoglobin A1c to objectively assess quality of diabetic control. Check lipid profile to evaluate for evidence of metabolic syndrome. 3. Morbid obesity; BMI 41.3 this admission - Noted. Weight loss will be recommended. Check TSH in light of #1. 4. Tobacco abuse - Tobacco cessation will be strongly encouraged with nicotine patch offered to control cravings. 5. History of substance abuse - Check [place] [employer] to screen for any illicit agents that may be contributing to his condition. 6. History of TTP - Noted. 7. Bipolar disorder - Restart home regimen as previous. 8. Migraine headaches - Stable with no complaints of headache at this time. 9. DVT prophylaxis -SCDs only. Avoid Lovenox and heparin with history of TTP. Total time: Approximately 85 minutes. Charges/Coding Visit Charges Inpatient E&M: 15870 Init Hosp L3 02/23/24 0613 <Electronically signed by Mainor Payan DO> Cosigner Signature (if applicable): CC: Dr. Mainor Payan, ; No Primary Care Physician~ Signed [facility] Work Phone: Hospital Discharge instructions Additional Instructions You have 2 small abscesses on the back your neck. They are too small to drain at this time. If they get significantly larger about the size of a quarter return and we can drain them. Warm compresses to the area. Motrin and Tylenol for pain. The antibiotic Keflex 1 pill 4 times a day till gone.[facility] Work Phone: Hospital Discharge instructions Additional Instructions Ice, wear the brace, and take Tylenol 1000 mg every 6 hours as needed. Follow-up with orthopedics. Use the norco for breakthrough pain.[facility] Work Phone: Hospital Discharge instructions Additional Instructions Please follow-up with Dr. Ramirez or your family doctor to discuss outpatient MRI and/or orthopedic referral to further assess the cause of your shoulder pain which I feel is related to rotator cuff dysfunction. Sleep in a recliner to help reduce pain and wear your sling for stabilization. Remember to take your arm out of the sling and perform range of motion exercises at least 3 times a day to prevent frozen shoulder.[facility] Work Phone: Hospital Discharge instructions Additional Instructions You to follow-up with your doctor. The name of your doctor is located on your insurance card issued to you by care source.[facility] Work Phone: Hospital Discharge instructions* Attachments The following attachments cannot be sent through Care Everywhere. * [facility] SMOKING CESSATION LINKS [facility] Attachments The following attachments cannot be sent through Care Everywhere. * Rotator Cuff Impingement or Degeneration (Trinidadian) [facility] note Author Karli Reyes [facility] February 23, 2024 3:53pm Note Date/Time February 23, 2024 3:53p m [facility] Medical Records Department [address] [place] [address] Progress Note - Hospitalist 02/23/24 1552 MR#: [id number] Acct: [id number] Name: JAIRO ADKINS Jr. Rep #:[id number] : 1980 44 From: Karli Reyes DO PCP: Care Physician,No Primary Status :ADM IN Location: ICU CVICU20 4-1 Hospitalist Note Patient has elected to sign out AMA. He states that he has to get his herantiseizure medications. I will go ahead and send 1 month supply of Lantus andhave encouraged him to follow-up with Dr. Garza as an outpatient but I will not discharge him as he is still having fluctuating blood sugars blood sugars and I suspect we will need to titrate medications more. I feel that if we do not sendhim with any Lantus he will be back in with a readmission. He was given Dr. Garza contact information and actually instructed to call today but it appears sashas not yet done that. Lantus prescription for 1 month supply was sent to the local pharmacy and the patient signed AMA paperwork. 02/23/241552 <Electronically signed by Karli Reyes DO> Cosigner Signature (if applicable): CC: ~ Signed [facility] Work Phone: Reason for referral (narrative)*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 [address] [facility] [address] [place] [address] PCP - Family Medicine Certified Nurse Practitioner 08/04/23 Polo Meredith, COREMAKER APPRENTICE-METHODS EXAMINER [address] [facility] [address] [place] [address] PCP - General Certified Nurse Practitioner 08/04/23 Team Status: Active Member Role Status Dates No Primary Care Physician Primary Care Provider Active Dr. Desmond Mendoza DO Emergency Provider Active Dr. Mainor Payan DO Admit Provider, Attending Pr ovider Active Team Status: Inactive Member Role Status Dates No Primary Care Physician Primary Care Provider Active Dr. Antonio Montgomery MD Attending Provider, Emergency Provi alannah Active Team Status: Inactive Member Role Status Dates No Primary Care Physician Primary Care Provider Active Dr. Desmond Mendoza DO Emergency Provider Active Team Status: Inactive Member Role Status Dates No Primary Care Physician Primary Care Provider Active Dr. Desmond Mendoza DO Emergency Provider Active Dr. Mainor Payan DO Admit Provider, Other Provid er Active Dr. Karli Reyes DO Attending Provider Active Snap Shearer Relationship Specialty Start Date End Date Polo Meredith, COREMAKER APPRENTICE-METHODS EXAMINER [address] [facility] [address] [place] [address] PCP - Family Medicine Certified Nurse Practitioner 08/04/23 Polo Meredith, COREMAKER APPRENTICE-METHODS EXAMINER [address] [place] [address] PCP - General Certified Nurse Practitioner 08/04/23 Snap Shearer Relationship Specialty Start Date End Date Polo Meredith APRN-METHODS EXAMINER [address] [place] [address] PCP - Family Medicine Certified Nurse Practitioner 08/04/23 Polo Meredith APRN-METHODS EXAMINER [address] [place] [address] PCP - General Certified Nurse Practitioner 08/04/23 Snap Shearer Relationship Specialty Start Date End Date Polo Meredith COREMAKER APPRENTICE-METHODS EXAMINER [address] [place] [address] PCP - Family Medicine Certified Nurse Practitioner 08/04/23 Polo Meredith, COREMAKER APPRENTICE-METHODS EXAMINER [address] [place] [address] PCP - General Certified Nurse Practitioner 08/04/23 Snap Shearer Relationship Specialty Start Date End Date Polo Meredith COREMAKER APPRENTICE-METHODS EXAMINER [address] [place] [address] PCP - Family Medicine Certified Nurse Practitioner 08/04/23 Polo Meredith, COREMAKER APPRENTICE-METHODS EXAMINER [address] [place] [address] PCP - General Certified Nurse Practitioner 08/04/23 Snap Shearer Relationship Specialty Start Date End Date Polo Meredith APRN-CNP [address] [phone] PCP - Family Medicine Certified Nurse Practitioner 08/04/23 Polo Meredith APRN-CNP [address] [address] PCP - General Certified Nurse Practitioner 08/04/23 Snap Shearer Relationship Specialty Start Date End Date Polo Meredith APRN-CNP [address] [address] PCP - Family Medicine Certified Nurse Practitioner 08/04/23 Polo Meredith APRN-CNP [address] [address] PCP - General Certified Nurse Practitioner 08/04/23 Scheduled Active and Recently Administ ered Medications (unrecognized section and content) Medication Order 09/14/2023 09/15/2023 09/16/2023 lidocaine-EPINEPHrine (Xylocaine W/EPI) 1 %-1:[id number] injection 10 mL 10 mL, Infiltration, Once, On 09/16/23 at 1445, For 1 dose 1445 (Canceled Entry - Provider: Automatic Discharge Provider - Comment: Automatically canceled at discontinue of medication order) oxyCODONE-acetaminophen (Percocet) 5-325 MG per tablet 1 tablet (COMPLETED) 1 tablet, Oral, Once, On 09/16/23 at 1445, For 1 dose, Maximum dose of acetaminophen is 4000 mg from all sources in 24 hours. 1452 (Given - Provid er: Nallely Roland RN) Scheduled Medication Order 02/23/2024 02/24/2024 02/25/2024 Enoxaparin Sodium (LOVENOX) injection 40 mg 40 mg, Subcutaneous, EVERY 24 HOURS, First dose on 02/25/24 at 1015, Until Discontinued, For SUBCUTANEOUS route ONLY: alternate injection sites between left and right abdominal wall, pinching location and avoiding area around navel. If unable to use abdominal sites, may use the front or side of thighs., Indications: DVT/PE prophylaxis 1224 (Not Given - Pr ovider: Serina Wakefield RN - Reason: Patient/family refused - Comment: Patient declines medication at this time. Patient was educated on the purpose and use of medication.) insulin glargine-yfgn (SEMGLEE) injection 30 Units 30 Units, Subcutaneous, DAILY, First dose on 02/25/24 at 0900, Until Discontinued 0943 (Given - Provid er: Serina Wakefield RN) Insulin lispro (HUMALOG) injection(Linked Group 1) Subcutaneous, 4 TIMES DAILY WITH MEALS & AT BEDTIME, First dose on 02/25/24 at 0845, Until Discontinued, Insulin to carb ratio: Standard: 1 unit insulin = 10 grams carbs every meal and at bedtime Correction Factor: 151-200 = 2 units; 201-250 = 4 units; 251-300 = 6 units; 301-350 = 8 units; 351-400 = 10 units; Kwikpen: Prime pen before each injection; refer to Pen Priming and Care Handout for further details. Warning! Confirm patient. Insulin pen is for labeled individual patient use ONLY. 1029 (Not Given - Pr ovider: Serina Wakefield RN - Reason: Other - Comment: Patient declined meal at this time)1200 (Canceled Entry - Provider: System Discharge - Comment: Automatically canceled at discontinue of medication order) Insulin regular (HUMULIN R;NOVOLIN R) injection (CANCELED)(Linked Group 2) Subcutaneous, EVERY 4 HOURS NON-STANDARD, 2 doses, First dose on 02/25/24 at 0600, Last dose on 02/25/24 at 1000, Correction factor parameters most appropriate for NPO or tube feeding patients: Administer insulin as the following based upon current blood glucose (obtained in past 30 minutes): Blood glucose 151 - 200 = 4 units; 201 - 250 = 6 units; 251 - 300 = 8 units; Over 300 = 10 units. Check POC blood glucose 2 hours and 4 hours after dose. After 4 hours, may administer second insulin dose with current POC glucose and based upon same scale. An initial vial will be sent from the pharmacy without prompting. Replacement vials require a MAR request when needed. Pyxis has a vial for emergent doses only. 0540 (Given - Provid er: Kj Martinez RN) Lactated ringers IV solution 2,000 mL (COMPLETED) 2,000 mL, Intravenous, ONCE, 1 dose, On 02/25/24 at 0600, Fluid Bolus 0525 ($$New Bag$$ - Provider: Richmond Bennett RN)0525 (Rate/Dose Verify - Provider: Serina Wakefield RN)0711 (Rate/Dose Verify - Provider: Serina Wakefield RN)0741 (Stopped - Provider: Serina Wakefield RN) PRN Medication Order 02/23/2024 02/24/2024 02/25/2024 Acetaminophen (TYLENOL) tablet 650 mg 650 mg, Oral, EVERY 6 HOURS NEEDED, Starting on 02/25/24 at 1003, Until 02/25/24 at 1543, Mild Pain, Oral temp > 100.4 F, Maximum dose of acetaminophen is 4000 mg from all sources in 24 hours. alum/mag hydrox.-simethicone oral suspension 30 mL 30 mL, Oral, EVERY 6 HOURS NEEDED, Starting on 02/25/24 at 1003, Until 02/25/24 at 1543, Indigestion, Per 5 mL is equivalent to: (Alum-Mag Hydroxide 200-225 mg and Simethicone 20 mg) and (Alum-Mag Hydroxide 200-200 mg and Simethicone 20 mg) Dextrose 50% injection 7.5-25 g(Linked Group 1) 7.5-25 g, Intravenous, ADMINISTER DIRECTED, Starting on 02/25/24 at 0839, Until 02/25/24 at 1543, Blood glucose <80 mg/dL, For patients who are not alert, are NPO, or are on IV insulin infusion administer as directed per Hypoglycemia in Non- Adults Clinical Practice Guideline. For Blood Glucose: 60-79 mg/dL administer 7.5 gm (15ml); 45-59 mg/dL administer 12.5 gm (25ml); less than 45mg/dL administer 25gm (50ml). ++ If additional dextrose 50% needed, contact pharmacy or obtain from [facility] ++ glucose (GLUTOSE) 40 % oral gel 1-2 Tube(Linked Group 1) 1-2 Tube, Oral, ADMINISTER DIRECTED, Starting on Sun 524 at 0839, Until Sun 524 at 1543, Blood glucose <80 mg/dL, For patients who are alert, able to tolerate PO intake and with intact cognitive status administer as directed per Hypoglycemia in Non- Adults Clinical Practice Guideline. For Blood Glucose: 60-79 mg/dL administer 1 tube; 45-59 mg/dl administer 1.5 tubes; less than 45 mg/dL administer 2 tubes. Each tube of 37.5g delivers 15g of carbohydrate. guaiFENesin (ROBITUSSIN) oral solution 400 mg 400 mg, Oral, EVERY 6 HOURS NEEDED, Starting on Sun 524 at 1003, Until Sun 524 at 1543, Cough, Congestion Insulin lispro (HUMALOG) injection(Linked Group 1) Subcutaneous, NEEDED, Starting on 02/25/24 at 0839, Until Sun 524 at 1543, Other, As needed for snacks, Insulin to carb ratio: Standard: 1 unit insulin = 10 grams carbs Correction Factor: not to be used with this order. Kwikpen: Prime pen before each injection; refer to Pen Priming and Care Handout for further details. Warning! Confirm patient. Insulin pen is for labeled individual patient use ONLY. Melatonin tablet 6 mg 6 mg, Oral, DAILY AT BEDTIME NEEDED, Starting on Sun 5 at 1003, Until Sun 524 at 1543, Insomnia Ondansetron (ZOFRAN) tablet 4 mg(Linked Group 3) 4 mg, Oral, EVERY 6 HOURS NEEDED, Starting on Sun 524 at 1003, Until Sun 5/24 at 1543, Nausea / Vomiting, 1st line for Nausea/Vomiting Ondansetron 4mg/2ml (ZOFRAN) injection 4 mg(Linked Group 3) 4 mg, Intravenous, EVERY 6 HOURS NEEDED, Starting on Sun 5/24 at 1003, Until 5/12/24 at 1543, Nausea / Vomiting, 1st line for Nausea/Vomiting Polyethylene glycol (MIRALAX) packet 17 g 17 g, Oral, DAILY NEEDED, Starting on 02/25/24 at 1003, Until 02/25/24 at 1543, Constipation 1st Line Promethazine (PHENERGAN) suppository 25 mg(Linked Group 4) 25 mg, Rectal, EVERY 6 HOURS NEEDED, Starting on 02/25/24 at 1003, Until 02/25/24 at 1543, Refractory Nausea Vomiting, 2nd line for nausea/vomiting Promethazine (PHENERGAN) tablet 25 mg(Linked Group 4) 25 mg, Oral, EVERY 6 HOURS NEEDED, Starting on 02/25/24 at 1003, Until 02/25/24 at 1543, Refractory Nausea Vomiting, 2nd line for nausea/vomiting Sodium chloride 0.9% IV solution 250 mL Intravenous, at 20 mL/hr, NEEDED, Starting on 02/25/24 at 1003, Until 02/25/24 at 1543, Carrier Fluid - See Admin. Inst, 250mL 0.9NS to be used as carrier fluid for intermittent small volume or piggyback medication administration as needed. Infusion rate of the carrier fluid should be set at 20 mL/hr unless the rate as the intermittent medication is less than 20 mL/hr. For intermittent medications with a rate less than 20 mL/hr set the carrier fluid at that rate of the intermittent or piggy back medication. Linked Groups Order Group 1: Insulin lispro (HUMALOG) injectionJump to med Subcutaneous, 4 TIMES DAILY WITH MEALS & AT BEDTIME, First dose on 02/25/24 at 0845, Until Discontinued, Insulin to carb ratio: Standard: 1 unit insulin = 10 grams carbs every meal and at bedtime Correction Factor: 151-200 = 2 units; 201-250 = 4 units; 251-300 = 6 units; 301-350 = 8 units; 351-400 = 10 units; Kwikpen: Prime pen before each injection; refer to Pen Priming and Care Handout for further details. Warning! Confirm patient. Insulin pen is for labeled individual patient use ONLY. And Insulin lispro (HUMALOG) injectionJump to med Subcutaneous, NEEDED, Starting on 02/25/24 at 0839, Until 02/25/24 at 1543, Other, As needed for snacks, Insulin to carb ratio: Standard: 1 unit insulin = 10 grams carbs Correction Factor: not to be used with this order. Kwikpen: Prime pen before each injection; refer to Pen Priming and Care Handout for further details. Warning! Confirm patient. Insulin pen is for labeled individual patient use ONLY. And BLOOD GLUCOSE (POC DEVICE) (CANCELED) Routine, 4 TIMES DAILY BEFORE MEALS & AT BEDTIME, First occurrence on 02/25/24 at 1030, If any Blood Glucose (POC) is greater than 300mg/dl, then repeat Blood Glucose (POC) in 2 hours. If the initial blood glucose was greater than 300mg/dl and if second blood glucose is greater than 200md/dl, then notify Industrial Sweeper Cleaner. And BLOOD GLUCOSE (POC DEVICE) (CANCELED) Routine, DIRECTED, Starting on 02/25/24 at 0839, Until Specified, For all Blood Glucose LESS THAN 80 mg/dL, treat per Hypoglycemia in Non- Adults Clinical Practice Guideline (CPG) and recheck glucose 15 min after treatment. Repeat per CPG until glucose GREATER THAN 80 mg/dL. Once glucose IS GREATER THAN 80 mg/dL, recheck Blood Glucose every 1 hour x2, then resume as previously ordered. For Blood Glucose LESS THAN 80 mg/dL on admission OR LESS than 45 mg/dL at any time, obtain POC Blood Glucose every 4 hours for 6 occurrences AFTER treating per CPG. Obtain blood glucose for symptoms of hypoglycemia: sweating, shaking, fatigue, rapid pulse, slow thinking & dizziness. Notify physician w/results. Obtain blood glucose for symptoms of hyperglycemia: excessive thirst, blurred vision, excessive urination & tiredness. Notify physician w/results. If patient NPO, obtain POC Blood Glucose prior to administration of any insulin products. And COMMUNICATION ORDER FOR NURSING CARE: For Blood Glucose LESS THAN 80 mg/dl (CANCELED) Routine, CONTINUOUS, Starting on 02/25/24 at 0840, Until Specified, For Blood Glucose LESS THAN 80 mg/dl follow Hypoglycemia in Non- Adults Clinical Practice Guideline (CPG) And Dextrose 50% injection 7.5-25 gJump to med 7.5-25 g, Intravenous, ADMINISTER DIRECTED, Starting on 02/25/24 at 0839, Until 02/25/24 at 1543, Blood glucose <80 mg/dL, For patients who are not alert, are NPO, or are on IV insulin infusion administer as directed per Hypoglycemia in Non- Adults Clinical Practice Guideline. For Blood Glucose: 60-79 mg/dL administer 7.5 gm (15ml); 45-59 mg/dL administer 12.5 gm (25ml); less than 45mg/dL administer 25gm (50ml). ++ If additional dextrose 50% needed, contact pharmacy or obtain from crash cart ++ And glucose (GLUTOSE) 40 % oral gel 1-[facility] to [facility] 1-2 Tube, Oral, ADMINISTER DIRECTED, Starting on 02/25/24 at 0839, Until Mon02/25/24 at 1543, Blood glucose <80 mg/dL, For patients who are alert, able to tolerate PO intake and with intact cognitive status administer as directed per Hypoglycemia in Non- Adults Clinical Practice Guideline. For Blood Glucose: 60-79 mg/dL administer 1 tube; 45-59 mg/dl administer 1.5 tubes; less than 45 mg/dL administer 2 tubes. Each tube of 37.5g delivers 15g of carbohydrate. And NOTIFY PHYSICIAN, Blood Glucose LESS THAN 80 mg/dl (CANCELED) Routine, CONTINUOUS, Starting on 02/25/24 at 0840, Until Specified, Who to Notify: Industrial Sweeper Cleaner, For all Blood Glucose LESS THAN 80 mg/dl, notify Industrial Sweeper Cleaner after treatment per Hypoglycemia in Non- Adults Clinical Practice Guideline And Carbohydrate counts with meals (CANCELED) Routine, CONTINUOUS, Starting on 02/25/24 at 0840, Until Specified, Carbohydrate counts are to be done after each patient meal and with snack. Group 2: Insulin regular (HUMULIN R;NOVOLIN R) injection (CANCELED)Jump to med Subcutaneous, EVERY 4 HOURS NON-STANDARD, 2 doses, First dose on 02/25/24 at 0600, Last dose on Mon02/25/24 at 1000, Correction factor parameters most appropriate for NPO or tube feeding patients: Administer insulin as the following based upon current blood glucose (obtained in past 30 minutes): Blood glucose 151 - 200 = 4 units; 201 - 250 = 6 units; 251 - 300 = 8 units; Over 300 = 10 units. Check POC blood glucose 2 hours and 4 hours after dose. After 4 hours, may administer second insulin dose with current POC glucose and based upon same scale. An initial vial will be sent from the pharmacy without prompting. Replacement vials require a MAR request when needed. Pyxis has a vial for emergent doses only. And BLOOD GLUCOSE (POC DEVICE) (CANCELED) Routine, EVERY 2 HOURS PRN, Starting on 02/25/24 at 0518, Until 02/25/24, For 12 hours, If any blood glucose (POC) is greater than 300 mg/dL, then repeat blood glucose (POC) in 2 hours. If insulin administered based upon ED/OBS scale, check POC glucose at 2 hours and 4 hours after dose. And COMMUNICATION ORDER FOR NURSING CARE: For Blood Glucose LESS THAN 80 mg/dl (CANCELED) Routine, CONTINUOUS, Starting on 02/25/24 at 0519, Until 02/25/24, For 12 hours, For Blood Glucose LESS THAN 80 mg/dl, follow Hypoglycemia in Non- Adults Clinical Practice Guideline (CPG) And Dextrose 50% injection 7.5-25 g (CANCELED) 7.5-25 g, Intravenous, ADMINISTER DIRECTED, Starting on 02/25/24 at 0518, Until 02/25/24 at 0840, Blood glucose <80 mg/dL, For patients who are not alert, are NPO, or are on IV insulin infusion administer as directed per Hypoglycemia in Non- Adults Clinical Practice Guideline. For Blood Glucose: 60-79 mg/dL administer 7.5 gm (15ml); 45-59 mg/dL administer 12.5 gm (25ml); less than 45mg/dL administer 25gm (50ml). ++ If additional dextrose 50% needed, contact pharmacy or obtain from crash cart ++ And glucose (GLUTOSE) 40 % oral gel 1-2 Tube (CANCELED) 1-2 Tube, Oral, ADMINISTER DIRECTED, Starting on 02/25/24 at 0518, Until 02/25/24 at 0840, Blood glucose <80 mg/dL, For patients who are alert, able to tolerate PO intake and with intact cognitive status administer as directed per Hypoglycemia in Non- Adults Clinical Practice Guideline. For Blood Glucose: 60-79 mg/dL administer 1 tube; 45-59 mg/dl administer 1.5 tubes; less than 45 mg/dL administer 2 tubes. Each tube of 37.5g delivers 15g of carbohydrate. And NOTIFY PHYSICIAN, Blood Glucose LESS THAN 80 mg/dl (CANCELED) Routine, CONTINUOUS, Starting on 02/25/24 at 0519, Until 02/25/24, For 12 hours, Who to Notify: Industrial Sweeper Cleaner, For all Blood Glucose LESS THAN 80 mg/dl, notify Industrial Sweeper Cleaner after treatment per Hypoglycemia in Non- Adults Clinical Practice Guideline Group 3: Ondansetron 4mg/2ml (ZOFRAN) injection 4 mgJump to med 4 mg, Intravenous, EVERY 6 HOURS NEEDED, Starting on 02/25/24 at 1003, Until 02/25/24 at 1543, Nausea / Vomiting, 1st line for Nausea/Vomiting Or Ondansetron (ZOFRAN) tablet 4 mgJump to med 4 mg, Oral, EVERY 6 HOURS NEEDED, Starting on 02/25/24 at 1003, Until 02/25/24 at 1543, Nausea / Vomiting, 1st line for Nausea/Vomiting Group 4: Promethazine (PHENERGAN) tablet 25 mgJump to med 25 mg, Oral, EVERY 6 HOURS NEEDED, Starting on 02/25/24 at 1003, Until 02/25/24 at 1543, Refractory Nausea Vomiting, 2nd line for nausea/vomiting Or Promethazine (PHENERGAN) suppository 25 mgJump to med 25 mg, Rectal, EVERY 6 HOURS NEEDED, Starting on 02/25/24 at 1003, Until 02/25/24 at 1543, Refractory Nausea Vomiting, 2nd line for nausea/vomiting Scheduled Medication Order 03/15/2024 03/16/2024 03/17/2024 oxyCODONE-acetaminophen (Percocet) 5-325 MG per tablet 2 tablet (COMPLETED) 2 tablet, Oral, Once, On 03/17/24 at 1525, For 1 dose, Maximum dose of acetaminophen is 4000 mg from all sources in 24 hours. 1528 (Given - Provid er: Antonette He RN) (unrecognized sect ion and content) No Status Records FoundNo Status Records FoundNo Status Records FoundNo Status Records FoundNo Status Records FoundNo Status Records FoundNo Status Records FoundNo Status Records Found INFORMATION SOURCE (unrecogn ized section and content) DATE CREATED AUTHOR 12/13/2023 [facility] ([place]) DATE CREATED AUTHOR AUTHOR'S ORGANIZ ATION 12/25/2023 Luís Barajas [facility] DATE CREATED AUTHOR AUTHOR'S ORGANIZ ATION 12/31/2023 [facility] DATE CREATED AUTHOR AUTHOR'S ORGANIZ ATION 01/25/2024 [facility] DATE CREATED AUTHOR AUTHOR'S ORGANIZ ATION 01/31/2024 [facility] DATE CREATED AUTHOR AUTHOR'S ORGANIZ ATION 03/17/2024 [facility] DATE CREATED AUTHOR AUTHOR'S ORGANIZ ATION 02/11/2025 [facility] DATE CREATED AUTHOR AUTHOR'S ORGANIZ ATION 03/31/2025 [facility] FOR RECORDS PERTAINING TO PATIENTS WHO ARE [...] BE BASED ON THE PRIMARY CLINICAL RECORDS. [facility]. provides no warranty or guarantee of the accuracy or completeness of information in this document.
[2025-04-07 23:44] VITALS: BP 123/87; PULSE 79; RESP 16; TEMP 36.9; O2SAT 99
== END 2025-04-07 23:45 | disposition home or self-care (01) ==
PROVIDERS: Emergency Provider Emergency Medicine; PCP Internal Medicine; Referring Provider Emergency Medicine; Visit Provider Emergency Medicine
DX: M77.8 Other enthesopathies, not elsewhere classified (principal); E11.9 Type 2 diabetes mellitus without complications; Z79.4 Long term (current) use of insulin; Z79.85 Long-term (current) use of injectable non-insulin antidiabetic drugs; F17.210 Nicotine dependence, cigarettes, uncomplicated
CPT/HCPCS: 73030; 99282

== ENCOUNTER 2025-04-29 14:46 | Emergency (ER) | payer MEDICAID, SELFPAY ==
[2025-04-29 14:47] VITALS: BP 126/79; PULSE 97; RESP 17; TEMP 36.2; O2SAT 97; BMI 43.8
--- NOTE | 2025-04-29 15:10 | RAD_ITS ---
PROCEDURE: ANKLE MIN 3 VIEWS 04/29/2025 REASON FOR EXAM: PAIN TECHNIQUE: ANKLE MIN 3 VIEWS COMPARISON: None FINDINGS: Bones: Calcaneal spurs. Joints: Unremarkable Soft tissues: Unremarkable Other: RAD/Ankle min 3 Views IMPRESSION: No fracture or dislocation. Calcaneal spurs. Reading Location: [id number]
--- NOTE | 2025-04-29 15:10 | RAD_ITS ---
PROCEDURE: FOOT MIN 3 VIEWS 04/29/2025 REASON FOR EXAM: Pain. TECHNIQUE: FOOT MIN 3 VIEWS COMPARISON: None FINDINGS: Bones: No fracture. Joints: Mild degree of joint space narrowing at the 1st metatarsophalangeal joint. Soft tissues: Mild soft tissue swelling Other: RAD/Foot min 3 Views IMPRESSION: Mild soft tissue swelling. No fracture. Mild degree of joint space narrowing at the 1st metatarsophalangeal joint. Reading Location: [facility]
--- NOTE | 2025-04-29 16:33 | EDS_ITS ---
HPI History of Present Illness Chief Complaint: Lower Extremity Injury [facility] Medical History Vision problems History of ulcer disease Hearing problem History of blood transfusion Back problem Acute arthritis Seasonal allergies Substance abuse Anxiety Depression Smoker Migraines Diabetes TTP (thrombotic thrombocytopenic purpura) Home Medications ?Medication ?Instructions ?Recorded ?Last Taken ?Type flash glucose scanning reader #1 ea 02/28/24 Unknown R x (FreeStyle Roxi 2 [place]) flash glucose sensor (FreeStyle #3 ea 07/30/24 Unknown Rx Roxi 2 Sensor kit) blood-glucose,nub card tender,cont #1 ea 09/11/24 Unknown Rx (FreeStyle Roxi 3 [place]) blood pressure monitor #1 ea 10/29/24 Unknown Rx insulin lispro 100 unit/mL 22 unit (0.22 mL) subcut TI D #60 mL 01/15/25 Unknown Rx subcutaneous pen pen needle, diabetic 31 gauge x #100 ea 01/27/25 Unkno wn Rx 5/16 (Pen Needle) insulin glargine 100 unit/mL (3 35 unit (0.35 mL) subc ut BID #76 mL 02/10/25 Unknown Rx mL) subcutaneous pen (Lantus Solostar U-100 Insulin) blood-glucose sensor (FreeStyle #1 KIT 03/11/25 Unknow n Rx Roxi 3 Sensor device) lisinopril 10 mg tablet 10 mg PO DAILY #90 tabs 0706/09 Unknown Rx dulaglutide 4.5 mg/0.5 mL 4.5 mg (0.5 mL) subcut QWEEK #2 mL 04/25/25 Unknown Rx subcutaneous pen injector hydrocodone-acetaminophen 5-325mg 1 tab PO Q6H PRN PRN Pain 3 days 04/29/25 Unknown Rx 5mg-325mg #10 TABLETS Allergy/AdvReac Type Severity Reaction Status Date / Time adhesive Allergy Rash Verified 04/29/25 14:49 dicyclomine HCl (From Bentyl) Allergy Hives Verified 04/29/25 14:49 fentanyl Allergy Hives Verified 04/29/25 14:49 Latex, Natural Rubber Allergy Rash Verified 04/29/25 14:49 methadone Allergy Other Verified 04/29/25 14:49 prednisone Allergy Rash Verified 04/29/25 14:49 tramadol HCl (From Ultram) Allergy Hives Verified 04/29/25 14:49 aspirin AdvReac Other Verified 04/29/25 14:49 ketorolac tromethamine (From AdvReac Upset Verified 04/29/25 14:49 Toradol) Stomach Family History Mother Diabetes Heart disease Cancer unknown Asthma Anxiety Arthritis Surgical History H/O eye surgery Social History household members: significant other, children and other details: [place] housing: house current occupational status: unemployed Smoking Status: Current every day smoker tobacco type: cigarettes Tobacco: How many years used: 30 Electronic Cigarette Use: not used quit status: not considering quitting alcohol intake: never substance use type: former substance user and marijuana what type of physical activity do you participate in: walking seatbelt use: always do you feel safe at home: Yes EXAM Physical Exam Const Vital Signs: 04/29/25 14:47 04/29/25 16:56 Temperature 97.2 F L 97.6 F L Temperature Source Temporal Pulse Rate 97 81 Respiratory Rate 17 16 Blood Pressure 126/79 H 128/71 H Blood Pressure Mean 94 90 Pulse Ox 97 96 Oxygen Delivery Method Room Air MDM MDM MDM Narrative Medical decision making narrative: Differential diagnosis includes fracture, sprain, and contusion. X-rays of the left foot will be obtained to assess for fracture. X-rays of the left ankle will be obtained to assess for fracture. Radiography Diagnostic Testing: Clinical Impression(s) from Imaging Studies Ankle X-Ray 04/29/25 15:10 IMPRESSION: No fracture or dislocation. Calcaneal spurs. Reading Location: [facility] Foot X-Ray 04/29/25 15:10 IMPRESSION: Mild soft tissue swelling. No fracture. Mild degree of joint space narrowing at the 1st metatarsophalangeal joint. Reading Location: [facility] X-rays of the left ankle were obtained. There are 3 views. On my independent interpretation, there is no acute fracture. There is no dislocation. There is some mild soft tissue swelling. Radiologist also interpreted the x-rays and agrees. X-rays of the left foot were obtained. There are 3 views. On my independent interpretation, there is no acute fracture. There is no dislocation. There is some mild soft tissue swelling. Radiologist also interpreted the x-rays and agrees. Treatment and Re-Evaluation Narrative: Patient was advised of his findings. Patient was given a walking boot. Patient was instructed to ice and elevate his left foot. Patient was instructed to follow-up with his primary care physician in 5 to 7 days. Patient was instructed to return if worse in any way. Patient understood and was agreeable with the plan. All questions were answered. Discharge Plan Triage Chief Complaint: Lower Extremity Injury ED Provider: Eliecer Cortez Dx/Rx/DC Orders Clinical Impression: Sprain of left foot, Tobacco use disorder Instructions: ED Foot Sprain Prescriptions: New hydrocodone-acetaminophen 5-325 mg tablet 1 tab PO Q6H PRN PRN (Reason: Pain) 3 Days Qty: 10 0RF No Action (DME) FreeStyle Roxi 2 [place] Misc See Rx Instructions .Route Qty: 1 0RF Rx Instructions: As directed (DME) FreeStyle Roxi 2 Sensor Kit See Rx Instructions .Route Qty: 3 2RF Rx Instructions: As directed (DME) blood pressure monitor Kit See Rx Instructions .Route Qty: 1 0RF Rx Instructions: As directed insulin glargine [Lantus Solostar U-100 Insulin] 100 unit/mL (3 mL) insulin pen 35 unit subcut BID Qty: 76 0RF (DME) FreeStyle Roxi 3 [place] Misc See Rx Instructions .Route Qty: 1 0RF Rx Instructions: As directed insulin lispro 100 unit/mL insulin pen 22 unit subcut TID Qty: 60 0RF Rx Instructions: Take 22 units with each meal If sugars are between 150-199: take an extra 2 units If between 200-249: take an extra 4 units If between 250-299: take an extra 6 units If between 300-349: take an extra 8 units If between 350-399: take an extra 10 units If over 400: take 10 units and call PCP (DME) pen needle, diabetic [Pen Needle] 31 gauge x 5/16 needle See Rx Instructions .Route Qty: 100 3RF Rx Instructions: As directed five times daily; DMII (E11.9) (DME) FreeStyle Roxi 3 Sensor Device See Rx Instructions .ROUTE .COMPLEX Qty: 1 5RF Dose Instruction: CHANGE sensor every 14 DAYS DIRECTED Rx Instructions: CHANGE sensor every 14 DAYS DIRECTED lisinopril 10 mg tablet 10 mg PO DAILY Qty: 90 0RF dulaglutide 4.5 mg/0.5 mL pen injector 4.5 mg subcut QWEEK Qty: 2 1RF Primary Care Provider: Katia Belle Referrals: Katia Belle MD [Primary Care Provider] - 5-7 Days Print Language: Georgian Disposition Disposition: Home, Self Care Discharge Date/Time: 04/29/25 16:59
[2025-04-29 16:56] VITALS: BP 128/71; PULSE 81; RESP 16; TEMP 36.4; O2SAT 96
== END 2025-04-29 16:59 | disposition home or self-care (01) ==
LOC: ED 16:48
PROVIDERS: Emergency Provider Emergency Medicine; PCP Internal Medicine; Visit Provider Emergency Medicine
DX: S93.602A Unspecified sprain of left foot, initial encounter (principal); E11.9 Type 2 diabetes mellitus without complications; Z79.4 Long term (current) use of insulin; X58.XXXA Exposure to other specified factors, initial encounter; F17.210 Nicotine dependence, cigarettes, uncomplicated; Z79.85 Long-term (current) use of injectable non-insulin antidiabetic drugs
CPT/HCPCS: 73610; 73630; 99283

== ENCOUNTER → 2025-06-10 | Outpatient (CLI) | payer MEDICAID, SELFPAY ==
[2025-06-10 12:31] LABS: Hematocrit 47.6 % (40-54); Hemoglobin 16.2 g/dL (13.0-16.5); Immature Granulocytes Count 0.050 X10^3/uL (0.0-0.0); Mean Corp Hgb Conc 34.0 g/dL (32-36); Mean Corpuscular Volume 89.8 fL (80-94); Mean Platelet Vol. 11.3 fl (6.2-12.0); NRBC Flagged by Analyzer 0 % (0-5); Platelet Count 194 K/mm3 (150-450); RBC Distribution Width CV 13.6 % (11.6-14.6); RBC Distribution Width SD 45.0 fl (35.1-43.9); Red Blood Count 5.30 M/mm3 (4.6-6.2); White Blood Count 8.4 K/mm3 (4.4-11.0)
[2025-06-10 12:49] LABS: Creatinine, Urine (random) 44.60 mg/dL (39.00-259.00); Microalbumin,Random Urine < 12.0 mg/L (<20 mg/L)
[2025-06-10 13:06] LABS: AST(SGOT) 36 U/L (<=37); Alanine Aminotransfer ALT/SGPT 66 U/L (<=46); Albumin, Serum 4.0 g/dL (3.5-5.0); Alkaline Phosphatase 152 U/L (40-129); BUN 12 mg/dL (4-19); BUN/Creat Ratio 16.2 RATIO (10-20); Calcium,Total 9.3 mg/dL (7.6-11.0); Cholesterol 222 mg/dL (<=200); Globulin 3.5 g/dL (2.2-4.2); Glucose 436 mg/dL (70-99); Triglycerides 486 mg/dL
[2025-06-10 13:07] LABS: Anion Gap 13 (5-15); Carbon Dioxide 20.4 mmol/L (21.0-32.0); Chloride 98 mmol/L (98-108); Low Density Lipoprotein Calc. 97 mg/dL; Potassium 4.4 mmol/L (3.3-5.1); Very Low Density Lipoprotein 97 mg/dL (5-40); cholesterol:hdl ratio screen 7.90
== END | disposition home or self-care (01) ==
LOC: BIMLAB 09:03
PROVIDERS: PCP Internal Medicine; Visit Provider Internal Medicine
DX: E11.65 Type 2 diabetes mellitus with hyperglycemia (principal); Z79.4 Long term (current) use of insulin; R74.8 Abnormal levels of other serum enzymes; E78.2 Mixed hyperlipidemia
CPT/HCPCS: 36415; 80053; 80061; 82043; 82570; 85025

== ENCOUNTER 2025-10-09 21:59 | Emergency (ER) | payer MEDICAID, SELFPAY ==
[2025-10-09 22:00] VITALS: PULSE 97; RESP 18; TEMP 36.4; O2SAT 97; BMI 41.3
[2025-10-09 22:15] VITALS: BP 136/88; PULSE 96; RESP 18; O2SAT 95
--- OUTSIDE RECORDS SUMMARY | 2025-10-09 22:48 | XMS RPT_ITS | CCD ---
Author Organization [facility] Care Team Providers Care Sorority Supervisor Name Role Phone Lonnie Braden Primary Care Provider Izabela Turner Primary Care Provider PHYSICIAN, NONE Primary Care Physician Unavailab le Masoud POLK-JARRETT, Polo T Unavailable Masoud POLK-PHARMACY MANAGER, Polo T Primary Care Provider [phone] TOD ARROYO MD Attending Unavail able PHYSICIAN, NONE Primary Care Unavailable CHINYERE KASPER DO Attending Unavailable PHYSICIAN, NONE Primary Care Unavailable Care Physician, No Primary Primary Care Provider Unavailable Care Physician, No Primary Referring Provider Un available Dr. Jean Marie Kumar Attending Provider [phone] Dr. Jorge Luis Oviedo Attending Provider MAINOR FERNANDEZ DO Attending Unavailable MAINOR FERNANDEZ DO Primary Care Unavailable MAINOR FERNANDEZ DO Admitting Unavailable HRPOLO SMITH Attending Unavailable GENERIC PROVIDER, NO ASSIGNED PCP Primary Care Unavailable Masoud POLK-JARRETT, Polo T Unavailable Masoudcatrina POLK-PHARMACY MANAGER, Polo T Primary Care Provider Care Physician, No Primary Primary Care Provider Unavailable Care Physician, No Primary Referring Provider Un available Dr. Jean Marie Kumar Attending Provider Dr. Jorge Luis Oviedo Attending Provider OK ADLER Attending Unavailable JOHNNYIZABELA MYERS Primary Care Unavailable IZABELA TURNER Primary Care Unavailable AKBAR BOOGIE Attending Unavailable Unavailable Primary Care Provider Unavailjudi Belle MD, Dr. Montalvo Primary Care Provider Yoshi ROSS, Dr. Montavlo Attending Provider Yoshi ROSS, Dr. Montalvo Referring Provider Diego EWING, Dr. Gonzáles Referring Provider Schwjaelyn EWING, Dr. Gonzáles Emergency Provider Schwjaelyn DO, Dr. Gonzáles Attending Provider Yoshi ROSS, Dr. Montalvo Primary Care Provider [phone] Yoshi ROSS, Dr. Montalvo Attending Provider Yoshi ROSS, Dr. Montalvo Referring Provider Yoshi, Katia Primary Care Unavailable Schwiger, Eliecer Attending Unavailable Moran, Katia Primary Care Unavailable Schwiger, Eliecer Referring Unavailable Schwiger, Eliecer Attending Unavailable Yoshi, Katia Primary Care Unavailable Yoshi, Katia Attending Unavailable Provider, Ed Physician Attending Unavailab le Moran, Katia Primary Care Unavailable Yoshi, Katia Attending Unavailable Yoshi, Katia Primary Care Unavailable Yoshi, Katia Primary Care Unavailable Yoshi, Katia Referring Unavailable Moran, Katia Attending Unavailable Moran, Katia Referring Unavailable Yoshi, Katia Attending Unavailable Moran, Katia Primary Care Unavailable Yoshi, Katia Referring Unavailable Yoshi, Katia Attending Unavailable Yoshi, Katia Primary Care Unavailable Josi Saravia Attending Unava ilable Moran, Katia Primary Care Unavailable Moran, Katia Referring Unavailable Yoshi, Katia Attending Unavailable Yoshi, Katia Primary Care Unavailable Yoshi, Katia Primary Care Unavailable Jo Dumont Attending Unavailable Ivon Garcia Attending Unavailable Moran, Katia Primary Care Unavailable Yoshi, Katia Primary Care Unavailable Schwiger, Eliecer Attending Unavailable Masoud UM SPECIALIST-PHARMACY MANAGER, Polo Ward Unavailable [phone] Masoud UM SPECIALIST-PHARMACY MANAGER, Polo Ward Primary Care Provider [phone] POLO MEREDITH Primary Care Unavailable SELF, SELF Referring Unavailable GASTON, FRAN W Attending Unavailable MASOUD, POLO T Primary Care Unavailable AURORAANDABDIRAHMAN R Attending Unavailable CATALAND, ABDIRAHMAN R Referring Unavailable CATALANDABDIRAHMAN R Attending Unavailable MASOUD, POLO T Primary Care Unavailable MASOUD, POLO T Referring Unavailable MASOUD, POLO T Primary Care Unavailable SUAREZ, SAMRA E Referring Unavailable MASOUD, POLO T Referring Unavailable MASOUD, POLO T Primary Care Unavailable EDILIA ROBLES Attending Unavailable ABDIRAHMAN RUTHERFORD R Attending Unavailable MASOUD, POLO T Referring Unavailable MASOUD, POLO T Primary Care Unavailable MASOUD, POLO T Primary Care Unavailable GASTON, FRAN W Referring Unavailable MASOUD, POLO T Primary Care Unavailable GASTON, FRAN W Referring Unavailable GASTON, FRAN W Attending Unavailable Allergies Allergy Classification Reported Allergen(s) Allergy Type Date of Onset Reaction(s) Facility (18 sources) Adhesive agent; Translations: [adhesive] Allergy to substance 2 [facility] (20 sources) Aspirin; Translations: [aspirin] Drug Allergy 5 Other, thins blood [facility] Comment on above: hx of TTP-drops plat elets (20 sources) Dicyclomine; Translations: [DICYCLOMINE HCL] Drug Allergy 0 [facility] (20 sources) fentaNYL; Translations: [fentanyl] Drug Allergy 3 Nausea Only, Hives [facility] (18 sources) Ketorolac; Translations: [ketorolac tromethamine] Drug Allergy 2 Upset Stomach [facility] (20 sources) Methadone; Translations: [methadone] Drug Allergy 2 Nausea and Vomiting, Hives, Other [facility] Work Phone: Comment on above: hard to swallow (20 sources) Morphine; Translations: [morphine] Drug Allergy 0 [facility] (18 sources) natural latex rubber; Translations: [Latex, Natural Rubber] Allergy to substance 2 [facility] (20 sources) predniSONE; Translations: [prednisone] Drug Allergy 0 Nausea and Vomiting [facility] Work Phone: (18 sources) traMADol; Translations: [tramadol HCl] Drug Allergy 2 Hives [facility] (20 sources) Aluminum aspirin Drug Allergy 9 [facility] (16 sources) Latex; Translations: [LATEX] Propensity to adverse reactions to drug 1 rash [facility] (20 sources) Propoxyphene Drug Allergy 1 [facility] (20 sources) traMADol; Translations: [tramadol] Drug Allergy 5 Dyspnea, Hives, Shortness of breath, Dyspnea (finding) [facility] (20 sources) Aspirin Buffered Propensity to adverse reactions to drug 1 Swelling [facility] (13 sources) *Adhesive Tape Propensity to adverse reactions 9 Rash [facility] (6 sources) Adhesive Tape Drug Allergy 2 Rash [facility] (5 sources) Ketorolac; Translations: [KETOROLAC] Allergy to substance 5 [facility] (18 sources) Prednisone Allergy to substance 0 Nausea And Vomiting, Rash [facility] (4 sources) Fentanyl And Related Drug Intolerance 6 Hives, Nausea Only [facility] (2 sources) cyclobenzaprine; Translations: [cyclobenzaprine ] Drug Allergy [facility] (2 sources) Dicyclomine; Translations: [dicyclomine] Drug Allergy rash [facility] (2 sources) GRAPEFRUIT EXTRACT Drug Allergy [facility] (2 sources) Ketorolac; Translations: [ketorolac] Drug Allergy Dyspnea (finding) [facility] (2 sources) Naproxen; Translations: [naproxen] Drug Allergy [facility] (14 sources) gadobutrol Drug Allergy 3 Itching, Nausea and Vomiting [facility] (1 source) Aspirin Drug Allergy [facility] (1 source) NSAID Drug allergy (disorder) [facility] (1 source) ALLERGIES NOT ON FILE; Translations: [ALLERGIES NOT ON FILE] Propensity to adverse reactions (disorder) [facility] 2 Repository (1 source) Aspirin Drug Allergy 5 [facility] (1 source) fentaNYL Drug Allergy 5 [facility] (1 source) Methadone Drug Allergy 5 [facility] (1 source) predniSONE Drug Allergy 5 [facility] Rep[facility] Medications Current Medications Medication Drug [...] for headache Start Date: 07/10/18 Status: Ordered amitriptyline hydrochloride 25 mg oral tablet (1 source) Tricyclic Antidepressant Start: 08-07-2025 take 2 tablets by mouth at bedtime Amitriptyline 25 MG tablet Take 2 tablets by mouth at bedtime. 60 tablet 2 08/07/2025 Active atorvastatin 10 mg oral tablet (20 sources) HMG-CoA Reductase Inhibitor Start: 06-10-2025 take 1 tablet by mouth at bedtime Atorvastatin (Lipitor) 10 mg tablet Active 10 mg PO AT BEDTIME 30 June 10, 2025 12:00am Start: 09-29-2022 End: 02-25-2024 take 1 tablet [...] mouth daily. 90 tablet 1 03/30/2022 Active Blood Pressure Monitor kit (4 sources) Start: 10-29-2024 Blood Pressure Monitor kit Active 0 .Route 1 October 29, 2024 1:00am Primary hypertension Essential (primary) hypertension As directed Start: 10-29-2024 Blood Pressure Monitor kit Active 0 .Route 1 October 29, 2024 1:00am As directed Blood-Glucose Sensor (Freest yle Roxi 3 Sensor) device (18 sources) Start: 06-06-2025 Blood-Glucose Sensor (Freestyle Roxi 3 Sensor) device Active 0 .ROUTE .COMPLEX 1 June 06, 2025 10:39am Type 2 diabetes mellitus Type 2 diabetes mellitus without complications CHANGE sensor every 14 DAYS DIRECTED Start: 03-11-2025 End: 06-06-2025 Blood-Glucose Sensor (Freest yle Roxi 3 Sensor) device Discontinued 0 .ROUTE .COMPLEX 1 March 11, 2025 9:18am June 06, 2025 10:40am Type 2 diabetes mellitus Type 2 diabetes mellitus without complications CHANGE sensor every 14 DAYS DIRECTED Start: 03-11-2025 Blood-Glucose Sensor (Freestyle Roxi 3 Sensor) device Active 0 .ROUTE .COMPLEX 1 March 11, 2025 9:18am Type 2 diabetes mellitus Type 2 diabetes mellitus without complications CHANGE sensor every 14 DAYS DIRECTED Start: 03-11-2025 Blood-Glucose Sensor (Freestyle Roxi 3 Sensor) device Active 0 .ROUTE .COMPLEX March 11, 2025 9:18am CHANGE sensor every 14 DAYS DIRECTED Start: 12-23-2024 End: 03-11-2025 Blood-Glucose Sensor (Freest yle Roxi 3 Sensor) device Discontinued 0 .Route 1 December 23, 2024 11:35am March 11, 2025 9:18am Type 2 diabetes mellitus Type 2 diabetes mellitus without complications As directed Start: 12-23-2024 End: 03-11-2025 Blood-Glucose Sensor (Freest yle Roxi 3 Sensor) device Discontinued 0 .Route December 23, 2024 11:35am March 11, 2025 9:18am As directed Start: 09-19-2024 End: 12-23-2024 Blood-Glucose Sensor (Freest yle Roxi 3 Sensor) device Discontinued 0 .Route 1 September 19, 2024 1:27pm December 23, 2024 11:35am Type 2 diabetes mellitus Type 2 diabetes mellitus without complications As directed Start: 09-19-2024 End: 12-23-2024 Blood-Glucose Sensor (Freest yle Roxi 3 Sensor) device Discontinued 0 .Route September 19, 2024 1:27pm December 23, 2024 11:35am As directed Start: 09-11-2024 End: 09-19-2024 Blood-Glucose Sensor (Freest yle Roxi 3 Sensor) device Discontinued 0 .Route 1 0 September 11, 2024 1:00am September 19, 2024 1:28pm Type 2 diabetes mellitus Type 2 diabetes mellitus without complications As directed Start: 09-11-2024 End: 09-19-2024 Blood-Glucose Sensor (Freest yle Roxi 3 Sensor) device Discontinued 0 .Route 1 September 11, 2024 1:00am September 19, 2024 1:28pm As directed Blood-Glucose,Wheel Adjuster,Cont (Freestyle Roxi 3 [place]) misc (4 sources) Start: 09-11-2024 Blood-Glucose,Wheel Adjuster,Cont (Freestyle Roxi 3 [place]) misc Active 0 .Route 1 0 September 11, 2024 1:00am Type 2 diabetes mellitus Type 2 diabetes mellitus without complications As directed Start: 09-11-2024 Blood-Glucose, Wheel Adjuster,Cont (Freestyle Roxi 3 [place]) misc Active 0 .Route 1 September 11, 2024 1:00am As directed dapagliflozin 5 mg oral tablet (2 sources) Sodium-Glucose Cotransporter 2 Inhibitor Start: 06-10-2025 take 1 tablet by mouth once daily in the morning Dapagliflozin Propanediol (Farxiga) 5 mg tablet Active 5 mg PO EVERY MORNING 30 0 June 10, 2025 12:00am DISABILITY PLACARD (14 sources) Start: 10-26-2023 DISABILITY PLACARD Disability placard end date 10/26/28 1 Each 10/26/2023 Active Start: 10-26-2023 DISABILITY PAULINA CARD Disability placard end date 10/26/28 1 Each 0 10/26/2023 Active Dulaglutide (20 sources) GLP-1 Receptor Agonist Start: 06-17-2025 Dulaglu tide 4.5 mg/0.5 mL pen injector Active 4.5 mg SC EVERY WEEK 2 June 17, 2025 12:44pm Start: 04-25-2025 End: 06-17-2025 Dulaglutide 4.5 mg/0.5 mL pe n injector Discontinued 4.5 mg SC EVERY WEEK 2 April 25, 2025 1:16pm June 17, 2025 12:44pm Start: 04-25-2025 Dulaglutide 4. 5 mg/0.5 mL pen injector Active 4.5 mg SC EVERY WEEK 2 April 25, 2025 1:16pm Start: 02-10-2025 End: 04-25-2025 Dulaglutide 4.5 mg/0.5 mL pe n injector Discontinued 4.5 mg SC EVERY WEEK 2 1 February 10, 2025 3:22pm April 25, 2025 1:16pm Start: 02-10-2025 Dulaglutide 4. 5 mg/0.5 mL pen injector Active 4.5 mg SC EVERY WEEK 2 February 10, 2025 3:22pm Start: 12-18-2024 End: 02-10-2025 Dulaglutide 3 mg/0.5 mL pen injector Discontinued 3 mg SC EVERY WEEK 6 0 December 18, 2024 2:51pm February 10, 2025 3:26pm Start: 12-18-2024 End: 02-10-2025 Dulaglutide 3 mg/0.5 mL pen injector Discontinued 3 mg SC EVERY WEEK 6 December 18, 2024 2:51pm February 10, 2025 3:26pm Start: 10-29-2024 End: 12-18-2024 Dulaglutide 3 mg/0.5 mL pen injector Discontinued 3 mg SC EVERY WEEK 6 0 October 29, 2024 4:33pm December 18, 2024 2:51pm Start: 10-29-2024 End: 12-18-2024 Dulaglutide 3 mg/0.5 mL pen injector Discontinued 3 mg SC EVERY WEEK 6 October 29, 2024 4:33pm December 18, 2024 2:51pm Start: 08-13-2024 End: 10-29-2024 Dulaglutide (Trulicity) 0.75 mg/0.5 mL pen injector Discontinued 1.5 mg SC EVERY WEEK 6 0 August 13, 2024 12:07pm October 29, 2024 4:46pm Start: 03-19-2024 End: 08-13-2024 Dulaglutide (Trulicity) 0.75 mg/0.5 mL pen injector Discontinued 0.75 mg SC EVERY WEEK 2 June 03, 2024 4:27pm July 30, 2024 8:20am Start: 03-10-2024 End: 04-08-2024 Dulaglutide (Trulicity) 1.5 mg/0.5 mL pen injector Discontinued 1.5 mg SC EVERY WEEK March 10, 2024 12:00am April 08, 2024 3:41pm ON DIRECTOR OF EDUCATION BACKORDER, PT UNABLE TO GET RIGHT NOW Start: 02-28-2024 End: 03-10-2024 Dulaglutide 0.75 mg/0.5 mL p en injector Discontinued 0.75 mg SC EVERY WEEK 2 0 February 28, 2024 12:00am March 10, 2024 3:20pm Start: 01-23-2023 End: 02-25-2024 inject 1 mL by subcutaneous injection every week Trulicity 1.5 MG/0.5ML Solution Pen-injector injection Indications: Type 2 diabetes mellitus without complication, with long-term current use of insulin INJECT THE CONTENTS OF 1 PEN SUBCUTANEOUSLY ONCE A WEEK 2 mL 11 01/23/2023 02/25/2024 Discontinued (Therapy completed) Start: 01-25-2022 inject 0.5 mL by sub cutaneous injection every week Dulaglutide (Trulicity) 1.5 MG/0.5ML Solution Pen-injector injection Indications: Type 2 diabetes mellitus without complication, with long-term current use of insulin Inject 0.5 mL under the skin once a week. 2 mL 11 02/22/2022 Active Start: 01-06-2022 End: 02-23-2024 Dulaglutide (Trulicity) 0.75 mg/0.5 mL pen injector Discontinued 0.75 mg SC EVERY WEEK January 06, 2022 12:00am February 23, 2024 3:53pm Flash Glucose Scanning Reade r (Freestyle Roxi 2 [place]) misc (4 sources) Start: 02-28-2024 Flash Glucose Scanning [place] (Freestyle Roxi 2 [place]) misc Active 0 .Route 1 0 February 28, 2024 12:00am As directed Start: 02-28-2024 Flash Glucose Scanning [place] (Freestyle Roxi 2 [place]) misc Active 0 .Route 1 February 28, 2024 12:00am As directed Flash Glucose Sensor (Freest yle Roxi 2 Sensor) kit (12 sources) Start: 07-30-2024 Flash Glucose Sensor (Freestyle Roxi 2 Sensor) kit Active 0 .Route 3 2 July 30, 2024 8:21am As directed Start: 07-30-2024 Flash Glucose Sensor (Freestyle Roxi 2 Sensor) kit Active 0 .Route 3 July 30, 2024 8:21am As directed Start: 06-06-2024 End: 07-30-2024 Flash Glucose Sensor (Freest yle Roxi 2 Sensor) kit Discontinued 0 .Route 3 2 June 06, 2024 4:27pm July 30, 2024 8:21am As directed Start: 06-06-2024 End: 07-30-2024 Flash Glucose Sensor (Freest yle Roxi 2 Sensor) kit Discontinued 0 .Route 3 June 06, 2024 4:27pm July 30, 2024 8:21am As directed Start: 02-28-2024 End: 06-06-2024 Flash Glucose Sensor (Freest yle Roxi 2 Sensor) kit Discontinued 0 .Route 3 February 28, 2024 12:00am June 06, 2024 4:27pm As directed Start: 02-28-2024 End: 06-06-2024 Flash Glucose Sensor (Freest yle Roxi 2 Sensor) kit Discontinued 0 .Route 3 February 28, 2024 12:00am June 06, 2024 4:27pm As directed GLUCOSE MONITOR PRESCRIPTION (7 sources) Start: 02-28-2024 GLUCOSE MONITO R PRESCRIPTION Use as instructed 1 Each 02/28/2024 Active 3 ml insulin glargine 100 unt/ml pen injector (20 sources) Insulin Analog Start: 02-10-2025 Insulin Glargi ne (Lantus Solostar U-100 Insulin) 100 unit/mL (3 mL) insulin pen Active 35 U SC TWICE A DAY 76 0 February 10, 2025 3:25pm Start: 10-29-2024 End: 02-10-2025 Insulin Glargine (Lantus Elizabeth ostar U-100 Insulin) 100 unit/mL (3 mL) insulin pen Discontinued 42 U SC TWICE A DAY 76 0 January 15, 2025 6:30pm February 10, 2025 3:26pm Start: 03-13-2024 End: 10-29-2024 Insulin Glargine (Lantus Elizabeth ostar U-100 Insulin) 100 unit/mL (3 mL) insulin pen Discontinued 40 U SC TWICE A DAY 24 0 October 11, 2024 4:48pm October 29, 2024 4:46pm Start: 03-10-2024 End: 03-13-2024 Insulin Glargine (Lantus Elizabeht ostar U-100 Insulin) 100 unit/mL (3 mL) insulin pen Discontinued 30 U SC TWICE A DAY March 10, 2024 12:00am March 13, 2024 11:16am Start: 02-23-2024 Lantus SoloSta r 100 UNIT/ML [...] unit/mL (3 mL) insulin pen Discontinued 30 U SC TWICE A DAY September 30, 2021 5:23pm November 30, 2023 4:40am Insulin Glargine-Yfgn (1 source) Start: 02-23-2024 Insulin Glargi ne-Yfgn Active 30 UNIT SC DAILY February 23, 2024 12:00am 3 ml insulin lispro 100 unt/ml pen injector (20 sources) Insulin Analog Start: 10-29-2024 End: 01-15-2025 Insulin Lispro 100 unit/mL insulin pen Active 22 U SC THREE TIMES A DAY 60 0 January 15, 2025 6:32pm Take 22 units with each meal If sugars are between 150-199: take an extra 2 units If between 200-249: take an extra 4 units If between 250-299: take an extra 6 units If between 300-349: take an extra 8 units If between 350-399: take an extra 10 units If over 400: take 10 units and call PCP Start: 03-19-2024 End: 10-29-2024 Insulin Lispro 100 unit/mL insulin pen Discontinued 20 U SC THREE TIMES A DAY 18 2 July 30, 2024 4:07pm October 29, 2024 4:46pm Start: 06-23-2021 End: 02-08-2022 inject 10 [IU] [...] Insulin) 100 unit/mL Insulin Pen Discontinued 10 U SC 3 TIMES DAILY WITH MEALS 15 0 June 19, 2021 12:00am November 30, 2023 4:40am 10 units with small meal, 20 units with large meal inject 25 [IU] by high bcutaneous injection three times daily before mealtime Insulin Lispro 100 UNIT/ML vial Inject 25 Units under the skin 3 times daily (take before meals). Active isopropyl alcohol 0.7 ml/ml medicated pad (20 sources) Start: 11-29-2021 Alcohol Swabs Pads Use to give insulin up to 5 times daily 200 Each 11 11/29/2021 Active meloxicam 7.5 mg oral tablet (4 sources) Nonsteroidal Anti-inflammatory Drug Start: 05-13-2022 End: 06-12-2022 take 1 tablet by mouth once daily meloxicam 7.5 MG tablet Take 1 tablet by mouth daily. 30 tablet 1 05/13/2022 Active omeprazole 40 mg delayed release oral capsule (11 sources) Proton Pump Inhibitor Start: 08-07-2025 take 1 capsule by mouth once daily omeprazole [address] capsule Take 1 capsule by mouth daily. 30 capsule 2 08/07/2025 Active Start: 01-06-2022 End: 07-21-2022 take 1 capsule by mouth once daily omeprazole [address] capsule Take 1 capsule by mouth daily. 30 capsule 3 01/06/2022 07/21/2022 Discontinued (Therapy completed) ondansetron 8 mg disintegrating oral tablet (20 [...] Diabetic (1 source) Start: 02-23-2024 Pen Needle, Di abetic Active 0 .Route 100 February 23, 2024 12:00am As directed Completed/Discontinued Medications Medication Drug Class(es) Dates Sig (Normalized) Sig (Original) acetaminophen 325 mg oral tablet (1 source) Start: 02-25-2024 End: 02-25-2024 take 1 tablet by mouth every six hours as needed acetaminophen 325 mg / HYDROcodone bitartrate 5 mg oral tablet (20 sources) Opioid Agonist Start: 04-29-2025 End: 06-10-2025 Hydrocodone-Acetami nophen 5-325 mg tablet Discontinued 1 {tbl} PO EVERY 6 HOURS NEEDED as needed for Pain 10 3 0 April 29, 2025 June 10, 2025 8:34am Sprain of left foot Unspecified sprain of left foot, initial encounter Start: 04-10-2024 End: 10-29-2024 Hydrocodone-Acetaminophen 5- 325 mg tablet Discontinued 1 {tbl} PO EVERY 6 HOURS NEEDED as needed for Pain 10 3 0 April 10, 2024 October 29, 2024 3:56pm Abscess of skin Cutaneous abscess, unspecified Start: 11-30-2023 End: 02-25-2024 hydroCODone-acetaminophen 5- 325 MG tablet 11/30/2023 02/25/2024 Discontinued (Therapy completed) Start: 10-29-2023 End: 02-28-2024 Hydrocodone-Acetaminophen 5- 325 mg tablet Discontinued 1 {tbl} PO EVERY 6 HOURS as needed for pain 12 3 0 November 30, 2023 February 28, 2024 10:33am Rotator cuff dysfunction Unspecified disorder of synovium and tendon, unspecified shoulder Start: 10-29-2023 End: 12-01-2023 take 1 tablet by mouth every six hours Hydrocodone-Acetaminophen Active 1 TABLE T PO EVERY 6 HOURS 12 3 November 30, 2023 Start: 09-16-2023 End: 09-19-2023 take 1 tablet by mouth every six hours as needed for pain HYDROcodone-acetaminophen (Paradis) 5-325 MG tablet Indications: Gluteal abscess Take 1 tablet by mouth every 6 hours as needed for severe pain (7-10) for up to 3 days. 10 tablet 0 09/16/2023 09/19/2023 Active Start: 05-23-2023 End: 12-01-2023 Hydrocodone-Acetaminophen 5- 325 mg tablet Discontinued 1 {tbl} PO EVERY 4 HOURS NEEDED as needed for Pain 10 2 0 May 23, 2023 December 01, 2023 11:37am Back pain Dorsalgia, unspecified Start: 05-23-2023 End: 12-01-2023 take 1 tablet by mouth every four hours as needed Hydrocodone-Acetaminophen Discontinued 1 TABLET PO EVERY 4 HOURS NEEDED 10 2 May 23, 2023 December 01, 2023 11:37am [...] by mouth every six hours as needed busPIRone hydrochloride 10 mg oral tablet (20 sources) Start: 09-30-2021 End: 11-30-2023 take 1 tablet by mouth three times daily Buspirone 10 mg tablet Discontinued 10 mg PO THREE TIMES A DAY September 30, 2021 1:00am November 30, 2023 4:39am calcium chloride 0.0014 meq/ml / potassium chloride 0.004 meq/ml / sodium chloride 0.103 meq/ml / sodium lactate 0.028 meq/ml injectable solution (1 source) Start: 02-25-2024 End: 02-25-2024 2,000 mL, Intravenous, ONCE, 1 dose, On 02/25/24 at 0600, Fluid Bolus cephalexin 500 mg oral capsule (20 sources) Cephalosporin Antibacterial Start: 11-16-2024 End: 02-10-2025 take 1 capsule by mouth every six hours Cephalexin 500 mg capsule Discontinued 500 mg PO EVERY 6 HOURS 40 0 November 16, 2024 1:00am February 10, 2025 2:50pm Start: 09-04-2024 End: 10-29-2024 take 1 capsule by mouth every six hours Cephalexin 500 mg capsule Discontinued 500 mg PO EVERY 6 HOURS 40 0 September 04, 2024 1:00am October 29, 2024 3:47pm Start: 04-10-2024 End: 05-21-2024 take 1 capsule by mouth every six hours Cephalexin 500 mg capsule Discontinued 500 mg PO EVERY 6 HOURS 40 0 April 10, 2024 12:00am May 21, 2024 6:08pm Start: 03-17-2024 End: 03-27-2024 take 1 capsule by mouth every six hours Cephalexin 250 mg capsule Discontinued 250 mg PO EVERY 6 HOURS March 19, 2024 12:00am March 19, 2024 12:58am Start: 10-18-2022 End: 11-30-2023 take 1 capsule by mouth every six hours Cephalexin 500 mg capsule Discontinued 500 mg PO EVERY 6 HOURS 30 0 October 18, 2022 1:00am November 30, 2023 4:39am Continuous Blood Gluc Receiv er (FreeStyle Roxi 14 Day [place]) Device (20 sources) Start: 09-30-2021 End: 02-25-2024 Continuous Blood Gluc Receiv er (FreeStyle Roxi 14 Day [place]) Device Indications: Type 2 diabetes mellitus without complication, with long-term current use of insulin Use to check blood sugar using the Freestyle Roxi sensors 1 Each 09/30/2021 02/25/2024 Discontinued (Therapy completed) Start: 09-30-2021 Continuous Blo od Gluc Wheel Adjuster (FreeStyle Roxi 14 Day [place]) Device Indications: Type 2 diabetes mellitus without complication, with long-term current use of insulin Use to check blood sugar using the Freestyle Roxi sensors 1 Each 09/30/2021 Active Start: 09-30-2021 Continuous Blo od Gluc Wheel Adjuster (FreeStyle Roxi 14 Day [place]) Device Indications: Type 2 diabetes mellitus without complication, with long-term current use of insulin Use to check blood sugar using the Freestyle Roxi sensors 1 Each 0 09/30/2021 Active Continuous Blood Gluc Sensor (FreeStyle Roxi 14 Day Sensor) [facility] [place] (20 sources) Start: 03-26-2023 End: 02-25-2024 Continuous Blood Gluc Sensor (FreeStyle Roxi 14 Day Sensor) [facility] [place] Indications: Type 2 diabetes mellitus without complication, with long-term current use of insulin Use to check blood sugars using the Freestyle Roxi [place]. Change sensor every 14 days. 2 Each 03/26/2023 02/25/2024 Discontinued (Therapy completed) Start: 03-26-2023 Continuous Blo od Gluc Sensor (FreeStyle Roxi 14 Day Sensor) [facility] [place] Indications: Type 2 diabetes mellitus without complication, with long-term current use of insulin Use to check blood sugars using the Freestyle Roxi [place]. Change sensor every 14 days. 2 Each 03/26/2023 Active Start: 05-20-2022 Continuous Blo od Gluc Sensor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 (DEFAULT) [address] [place] [address] Platelet mean volume (Bld) [Entitic vol] 10.2 fL Normal 8.7-12.3 [facility] Comment on above: Performed By: #### L AB980 #### [facility] (DEFAULT) [address] [place] [address] Platelets (Bld) [#/Vol] 220 10*3/uL Normal 146-337 [facility] Comment on above: Performed By: #### L AB980 #### [facility] (DEFAULT) [address] [place] [address] RBC (Bld) [#/Vol] 5.25 10*6/uL Normal 4.38-5.83 [facility] Comment on above: Performed By: #### L AB980 #### [facility] (DEFAULT) [address] [place] [address] RBC Distribution 13.5 % Normal 10.9-14.[address] [facility] Comment on above: Performed By: #### L AB980 #### [facility] (DEFAULT) [address] [place] [address] Segs + Bands Auto 54.4 % Normal [facility] Comment on above: Performed By: #### L AB980 #### [facility] (DEFAULT) [address] [place] [address] Segs + Bands,Absolute Auto 4.68 K/uL Normal 1.57-6.19 [facility] Comment on above: Performed By: #### L AB980 #### [facility] (DEFAULT) [address] [place] [address] WBC (Bld) [#/Vol] 8.61 10*3/uL Normal 3.73-10.10 [facility] Comment on above: Performed By: #### L AB980 #### [facility] (DEFAULT) [address] [place] [address] COMPREHENSIVE METABOLIC PANE LOrdered By: Beryl Miller on 08-07-2025 Albumin [Mass/Vol] 4.2 g/dL 3.5 - 5.0 g/dL [facility] ALP [Catalytic activity/Vol] 140 U/L High 32 - 126 U/L [facility] ALT [Catalytic activity/Vol] 84 U/L High 10 - 52 U/L [facility] Anion gap [Moles/Vol] 10 mmol/L 7 - 17 mmol/L [facility] AST [Catalytic activity/Vol] 37 U/L 10 - 39 U/L [facility] Bilirubin [Mass/Vol] 0.5 mg/dL NINF - 1.5 mg/dL [facility] Calcium [Mass/Vol] 8.9 mg/dL 8.6 - 10. 5 mg/dL [facility] Chloride [Moles/Vol] 99 mmol/L 98 - 10 8 mmol/L [facility] CO2 [Moles/Vol] 25 mmol/L 21 - 31 mmol/L [facility] Creatinine [Mass/Vol] 0.78 mg/dL 0.70 - 1.30 mg/dL [facility] eGFR, CKD-EPI, Male - PINF [facility] Comment on above: Reported eGFR is bas ed on the CKD-EPI 2020 equation using creatinine, age, and sex. Glucose [Mass/Vol] 447 mg/dL Critically high 70 - 1 79 mg/dL [facility] Interpretation and review of laboratory results Abnormal [facility] Osmolality Calc [Osmolality] 296 [facility] Potassium [Moles/Vol] 4.2 mmol/L 3.5 - 5.0 mmol/L [facility] Protein [Mass/Vol] 7.4 g/dL 6.4 - 8.3 g/dL [facility] Sodium [Moles/Vol] 130 mmol/L Low 135 - 145 mmol/L [facility] Urea nitrogen [Mass/Vol] 11 mg/dL 7 - 25 mg/dL [facility] Urea nitrogen/Creatinine [Mass ratio] 14 mg/mg [facility] COMPREHENSIVE METABOLIC PANE Adán 08-07-2025 Albumin [Mass/Vol] 4.2 g/dL Normal 3.5-5.0 [facility] Comment on above: Performed By: #### L DO, CMPN #### [facility] (DEFAULT) [address] [place] [address] ALP [Catalytic activity/Vol] 140 U/L High 32-126 [facility] Comment on above: Performed By: #### L DO, CMPN #### [facility] (DEFAULT) [address] [place] [address] ALT [Catalytic activity/Vol] 84 U/L High 10-52 [facility] Comment on above: Performed By: #### L DO, CMPN #### [facility] (DEFAULT) [address] [place] [address] Anion gap [Moles/Vol] 10 mmol/L Normal 7-17 [facility] Comment on above: Performed By: #### L DO, CMPN #### [facility] (DEFAULT) [address] [place] [address] AST [Catalytic activity/Vol] 37 U/L Normal 10-39 [facility] Comment on above: Performed By: #### L DO, CMPN #### [facility] (DEFAULT) [address] [place] [address] Bilirubin [Mass/Vol] 0.5 mg/dL Normal <1.5 [facility] Comment on above: Performed By: #### L DO, CMPN #### [facility] (DEFAULT) [address] [place] [address] Calcium [Mass/Vol] 8.9 mg/dL Normal 8.6-10.5 [facility] Comment on above: Performed By: #### L DO, CMPN #### [facility] (DEFAULT) [address] [place] [address] Chloride [Moles/Vol] 99 mmol/L Normal 98-108 [facility] Comment on above: Performed By: #### L DO, CMPN #### [facility] (DEFAULT) [address] [place] [address] CO2 [Moles/Vol] 25 mmol/L Normal 21-31 [facility] Comment on above: Performed By: #### L DO, CMPN #### [facility] (DEFAULT) [address] [place] [address] Creatinine [Mass/Vol] 0.78 mg/dL Normal 0.70-1.30 [facility] Comment on above: Performed By: #### L DO, CMPN #### [facility] (DEFAULT) [address] [place] [address] eGFR, CKD-EPI, Male > Normal >=60 [facility] Comment on above: Result Comment: Repo rted eGFR is based on the CKD-EPI 2020 equation using creatinine, age, and sex. Performed By: #### L DO, CMPN #### [facility] (DEFAULT) [address] [place] [address] Glucose [Mass/Vol] 447 mg/dL Critically high Nonfas tin-179 mg/dL; Fastin-99 [facility] Comment on above: Performed By: #### L DO, CMPN #### [facility] (DEFAULT) [address] [place] [address] Osmolality [Osmolality] 296 mosm/kg Normal 278-305 [facility] Comment on above: Performed By: #### L DO, CMPN #### [facility] (DEFAULT) [address] [place] [address] Potassium [Moles/Vol] 4.2 mmol/L Normal 3.5-5.0 [facility] Comment on above: Performed By: #### L DO, CMPN #### [facility] (DEFAULT) [address] [place] [address] Protein [Mass/Vol] 7.4 g/dL Normal 6.4-8.3 [facility] Comment on above: Performed By: #### L DO, CMPN #### [facility] (DEFAULT) [address] [place] [address] Sodium [Moles/Vol] 130 mmol/L Low 135-145 [facility] Comment on above: Performed By: #### L DO, CMPN #### [facility] (DEFAULT) [address] [place] [address] Urea nitrogen [Mass/Vol] 11 mg/dL Normal 7-25 [facility] Comment on above: Performed By: #### L DO, CMPN #### [facility] (DEFAULT) [address] [place] [address] Urea nitrogen/Creatinine [Mass ratio] 14 mg/mg Normal [facility] Comment on above: Performed By: #### L DO, CMPN #### [facility] (DEFAULT) [address] [place] [address] LACTATE DEHYDROGENASEon 10-2 3-2025 Interpretation and review of laboratory results Normal [facility] LDH Lactate to pyruvate reaction [Catalytic activity/Vol] 140 U/L 100 - 190 U/L [facility] LD Total 140 U/L Normal 100-190 [facility] Comment on above: Performed By: #### L DO, CMPN #### [facility] (DEFAULT) [address] [place] [address] URINE PROTEIN/CREA RATIO, RA NDOMon 08-07-2025 Creatinine (U) [Mass/Vol] 54.21 mg/dL [facility] Protein Unsp time (U) [Mass/Vol] 8 mg/dL [facility] Protein/Creatinine (U) [Mass ratio] 0.148 mg/mg [facility] Creatinine (U) [Mass/Vol] 54.21 mg/dL Normal [facility] Comment on above: Performed By: #### L DO, CMPN #### [facility] (DEFAULT) [address] [place] [address] Prot/Creat Ratio 0.148 mg/mg Normal [facility] Comment on above: Performed By: #### L DO, CMPN #### [facility] (DEFAULT) [address] [place] [address] Protein Ql (U) 8 mg/dL Normal [facility] Comment on above: Performed By: #### L DO, CMPN #### [facility] (DEFAULT) [address] [place] [address] Absolute lymphocyte countOrd ered By: Katia Belle on 06-10-2025 Lymphocytes Auto (Unsp spec) [#/Vol] 2.37 10*3/uL 0.83-4.51 [facility] Absolute neutrophil countOrd ered By: Katia Belle on 06-10-2025 Neutrophils (Bld) [#/Vol] 4.7 10*3/uL 2.0-7.7 [facility] Anion gap in Serum or Plasma Ordered By: aKtia Belle on 06-10-2025 Anion gap [Moles/Vol] 13 mmol/L 5-[address] [facility] Automated lymphocyte count a s percentage of total leukocytesOrdered By: Katia Belle on 06-10-2025 Lymphocytes/100 WBC Auto (Unsp spec) 28.4 % 19-41 [facility] BUN/creatinine ratioOrdered By: Katia Belle on 06-10-2025 Urea nitrogen/Creatinine [Mass ratio] 16.2 mg/mg 10-20 [facility] Basophil percentageOrdered B y: Katia Belle on 06-10-2025 Basophils/100 WBC (Bld) 0.7 % 0-1 [facility] Bilirubin, totalOrdered By: Katia Belle on 06-10-2025 Bilirubin [Mass/Vol] 0.26 mg/dL 0.00-1.30 [facility] CBC W/Diff, Automatedon 05-17 Absolute Lymph 2.37 X10 3/uL Normal 0.83-4.51 [facility] Comment on above: Performed By: #### L 500.4100, L502.0250, L500.4050, L100.0100 #### [facility] [address] [place], [address] Absolute Neut 4.7 X10 3/uL Normal 2.0-7.7 [facility] Comment on above: Performed By: #### L 500.4100, L502.0250, L500.4050, L100.0100 #### [facility] [address] [place], [address] Basophils/100 WBC (Bld) 0.7 % Normal 0-1 [facility] Comment on above: Performed By: #### L 500.4100, L502.0250, L500.4050, L100.0100 #### [facility] [address] [place], [address] Eosinophils/100 WBC (Bld) 6.7 % High 0-5 [facility] Comment on above: Performed By: #### L 500.4100, L502.0250, L500.4050, L100.0100 #### [facility] [address] [place], [address] Erythrocyte distribution width (RBC) [Ratio] 13.6 % Normal 11.6-14.6 [facility] Comment on above: Performed By: #### L 500.4100, L502.0250, L500.4050, L100.0100 #### [facility] [address] [place], [address] Hematocrit (Bld) [Volume fraction] 47.6 % Normal 40-54 [facility] Comment on above: Performed By: #### L 500.4100, L502.0250, L500.4050, L100.0100 #### [facility] [address] [place], [address] Hemoglobin (Bld) [Mass/Vol] 16.2 g/dL Normal 13.0-16.5 [facility] Comment on above: Performed By: #### L 500.4100, L502.0250, L500.4050, L100.0100 #### [facility] [address] [place], [address] IG% 0.600 Normal 0.0-0.9 [facility] Comment on above: Result Comment: IG% - Immature Granulocytes (promyelocytes, myelocytes and metamyelocytes) > 1% indicates that a LEFT SHIFT is Present. Performed By: #### L 500.4100, L502.0250, L500.4050, L100.0100 #### [facility] [address] [place], [address] Lymphocytes/100 WBC (Bld) 28.4 % Normal 19-41 [facility] Comment on above: Performed By: #### L 500.4100, L502.0250, L500.4050, L100.0100 #### [facility] [address] [place], [address] MCH (RBC) [Entitic mass] 30.6 pg Normal 27.0-32.0 [facility] Comment on above: Performed By: #### L 500.4100, L502.0250, L500.4050, L100.0100 #### [facility] [address] [place], [address] MCHC (RBC) [Mass/Vol] 34.0 g/dL Normal 32-[address] [facility] Comment on above: Performed By: #### L 500.4100, L502.0250, L500.4050, L100.0100 #### [facility] [address] [place], [address] MCV (RBC) [Entitic vol] 89.8 fL Normal 80-94 [facility] Comment on above: Performed By: #### L 500.4100, L502.0250, L500.4050, L100.0100 #### [facility] [address] [place], [address] Monocytes/100 WBC (Bld) 7.9 % Normal 0-10 [facility] Comment on above: Performed By: #### L 500.4100, L502.0250, L500.4050, L100.0100 #### [facility] [address] [place], [address] Neutrophils/100 WBC (Bld) 55.7 % Normal 47-70 [facility] Comment on above: Performed By: #### L 500.4100, L502.0250, L500.4050, L100.0100 #### [facility] [address] [place], [address] Nucleated RBC (Bld) [#/Vol] 0 10*3/uL Normal 0-5 [facility] Comment on above: Performed By: #### L 500.4100, L502.0250, L500.4050, L100.0100 #### [facility] [address] [place], [address] Platelet mean volume (Bld) [Entitic vol] 11.3 fL Normal 6.2-12.0 [facility] Comment on above: Performed By: #### L 500.4100, L502.0250, L500.4050, L100.0100 #### [facility] [address] [place], [address] Platelets (Bld) [#/Vol] 194 10*3/uL Normal 150-450 [facility] Comment on above: Performed By: #### L 500.4100, L502.0250, L500.4050, L100.0100 #### [facility] [address] [place], [address] RBC (Bld) [#/Vol] 5.30 10*6/uL Normal 4.6-6.2 [facility] Comment on above: Performed By: #### L 500.4100, L502.0250, L500.4050, L100.0100 #### [facility] [address] [place], [address] RDW SD 45.0 fl High 35.1-43.9 [facility] Comment on above: Performed By: #### L 500.4100, L502.0250, L500.4050, L100.0100 #### [facility] [address] [place], [address] WBC (Bld) [#/Vol] 8.4 10*3/uL Normal 4.4-11.0 [facility] Comment on above: Performed By: #### L 500.4100, L502.0250, L500.4050, L100.0100 #### [facility] [address] [place], [address] Calculated very low density lipoprotein (VLDL) cholesterol measurementOrdered By: Katia Belle on 06-10-2025 Calculated very low density lipoprotein (VLDL) cholesterol measurement 97 mg/dL High 5-40 [facility] Carbon dioxide, total [Moles /volume] in Central venous bloodOrdered By: Katia Belle on 06-10-2025 CO2 [Moles/Vol] 20.4 mmol/L Low 21.0-32.0 [facility] Chloride assayOrdered By: Al ycdyana Belle on 06-10-2025 Chloride [Moles/Vol] 98 mmol/L 98-108 [facility] Comprehensive Metabolic Prof ilon 06-10-2025 Chloride [Moles/Vol] 98 mmol/L Normal 98-108 [facility] Comment on above: Performed By: #### L 500.4100, L502.0250, L500.4050, L100.0100 #### [facility] [address] [place], [address] CO2 [Moles/Vol] 20.4 mmol/L Low 21.0-32.0 [facility] Comment on above: Performed By: #### L 500.4100, L502.0250, L500.4050, L100.0100 #### [facility] [address] [place], [address] GAP 13 Normal 5-15 [facility] Comment on above: Performed By: #### L 500.4100, L502.0250, L500.4050, L100.0100 #### [facility] [address] [place], [address] Potassium [Moles/Vol] 4.4 mmol/L Normal 3.3-5.[address] [facility] Comment on above: Performed By: #### L 500.4100, L502.0250, L500.4050, L100.0100 #### [facility] [address] [place], [address] Sodium [Moles/Vol] 132 mmol/L Low 133-145 [facility] Comment on above: Performed By: #### L 500.4100, L502.0250, L500.4050, L100.0100 #### [facility] [address] [place], [address] Albumin [Mass/Vol] 4.0 g/dL Normal 3.5-5.0 [facility] Comment on above: Performed By: #### L 500.4100, L502.0250, L500.4050, L100.0100 #### [facility] [address] [place], [address] Albumin/Globulin [Mass ratio] 1.1 {ratio} Normal 0.9-2.4 [facility] Comment on above: Performed By: #### L 500.4100, L502.0250, L500.4050, L100.0100 #### [facility] [address] [place] [place], [address] ALK PHOS 152 U/L High 40-129 [facility] Comment on above: Performed By: #### L 500.4100, L502.0250, L500.4050, L100.0100 #### [facility] [address] [place], [address] ALT [Catalytic activity/Vol] 66 U/L High <=46 [facility] Comment on above: Performed By: #### L 500.4100, L502.0250, L500.4050, L100.0100 #### [facility] [address] [place], [address] AST [Catalytic activity/Vol] 36 U/L Normal <=37 [facility] Comment on above: Performed By: #### L 500.4100, L502.0250, L500.4050, L100.0100 #### [facility] [address] [place], [address] Bilirubin [Mass/Vol] 0.26 mg/dL Normal 0.00-1.30 [facility] Comment on above: Performed By: #### L 500.4100, L502.0250, L500.4050, L100.0100 #### [facility] [address] [place], [address] BUN/CRE 16.2 RATIO Normal 10-20 [facility] Comment on above: Performed By: #### L 500.4100, L502.0250, L500.4050, L100.0100 #### [facility] [address] [place], [address] Calcium [Mass/Vol] 9.3 mg/dL Normal 7.6-11.0 [facility] Comment on above: Performed By: #### L 500.4100, L502.0250, L500.4050, L100.0100 #### [facility] [address] [place], [address] Creatinine [Mass/Vol] 0.76 mg/dL Normal 0.70-1.[address] [facility] Comment on above: Performed By: #### L 500.4100, L502.0250, L500.4050, L100.0100 #### [facility] [address] [place], [address] GFR/1.73 sq M.predicted among non-blacks MDRD (S/P/Bld) [Vol rate/Area] 114 mL/min/{1.73_m2} Normal >60 [facility] Comment on above: Result Comment: mL/m in/1.73m2 CKD-EPI Creatinine Equation (2020) Performed By: #### L 500.4100, L502.0250, L500.4050, L100.0100 #### [facility] [address] [place], [address] Globulin (S) [Mass/Vol] 3.5 g/dL Normal 2.2-4.2 [facility] Comment on above: Performed By: #### L 500.4100, L502.0250, L500.4050, L100.0100 #### [facility] [address] [place], [address] Glucose [Mass/Vol] 436 mg/dL High 70-99 [facility] Comment on above: Performed By: #### L 500.4100, L502.0250, L500.4050, L100.0100 #### [facility] [address] [place], [address] T PROT 7.5 g/dL Normal 5.9-8.4 [facility] Comment on above: Performed By: #### L 500.4100, L502.0250, L500.4050, L100.0100 #### [facility] [address] [place], [address] Urea nitrogen [Mass/Vol] 12 mg/dL Normal 4-19 [facility] Comment on above: Performed By: #### L 500.4100, L502.0250, L500.4050, L100.0100 #### [facility] [address] [place], [address] Eosinophil percentageOrdered By: Katia Belle on 06-10-2025 Eosinophils/100 WBC (Bld) 6.7 % High 0-5 [facility] Erythrocyte distribution wid th ratioOrdered By: Katia Belle on 06-10-2025 Erythrocyte distribution width (RBC) [Ratio] 13.6 % 11.6-14.6 [facility] Erythrocyte distribution wid th standard deviationOrdered By: Katia Belle on 06-10-2025 Erythrocyte distribution width (RBC) [Ratio] 45.0 fl High 35.1-43.9 [facility] Glomerular filtration rate ( GFR) estimation/1.73 sq m using serum, plasma, or whole bOrdered By: Katia Belle on 06-10-2025 GFR/1.73 sq M.predicted among non-blacks MDRD (S/P/Bld) [Vol rate/Area] 114 mL/min/{1.73_m2} >60 [facility] Comment on above: mL/min/1.73m2 CKD-EP I Creatinine Equation (2020) Hematocrit Auto (Bld) [Volum e fraction]Ordered By: Katia Belle on 06-10-2025 Hematocrit (Bld) [Volume fraction] 47.6 % 40-54 [facility] Hemoglobin measurementOrdere d By: Katia Belle on 06-10-2025 Hemoglobin (Bld) [Mass/Vol] 16.2 g/dL 13.0-16.5 [facility] Immature granulocytes/100 WB C Auto (Bld)Ordered By: Katia Belle on 06-10-2025 Immature granulocytes/100 WBC (Bld) 0.600 % 0.0-0.9 [facility] Comment on above: IG% - Immature Granu locytes (promyelocytes, myelocytes and metamyelocytes) > 1% indicates that a LEFT SHIFT is Present. LDL calc ser/plasOrdered By: Katia Belle on 06-10-2025 Cholesterol in LDL [Mass/Vol] 97 mg/dL [facility] Comment on above: Bsqzmswlzz=543-072 m g/dL & Higher Phpm=900 mg/dL or greaterFriedwald Equation for LDL-C Laboratory - Chemistry and C hemistry - challengeOrdered By: Katia Belle on 06-10-2025 AST [Catalytic activity/Vol] 36 U/L <38 [facility] - Hematology and Cell countsOrdered By: Katia Belle on 06-10-2025 HbA1c (Bld) [Mass fraction] 9.3 % High 4.2-6.3 [facility] Lipid Profileon 06-10-2025 CHOL:HDL 7.90 Normal [facility] Comment on above: Performed By: #### L 500.4100, L502.0250, L500.4050, L100.0100 #### [facility] [address] [place], [address] Cholesterol in HDL [Mass/Vol] 28 mg/dL Low [facility] Comment on above: Result Comment: Yarely onal Cholesterol Education Program (NCEP) guidelines: <40 mg/dL: Low HDL-cholesterol (major risk factor for CHD) >= 60 mg/dL: High HDL-cholesterol (negative risk factor for CHD) HDL-cholesterol is affected by a number of factors, e.g. smoking, exercise, hormones, sex and age. Performed By: #### L 500.4100, L502.0250, L500.4050, L100.0100 #### [facility] [address] [place], [address] Cholesterol in LDL [Mass/Vol] 97 mg/dL Normal [facility] Comment on above: Result Comment: Bord qefgsd=517-340 mg/dL Higher Kysf=899 mg/dL or greater Friedwald Equation for LDL-C Performed By: #### L 500.4100, L502.0250, L500.4050, L100.0100 #### [facility] [address] [place], [address] Cholesterol in VLDL [Mass/Vol] 97 mg/dL High 5-40 [facility] Comment on above: Performed By: #### L 500.4100, L502.0250, L500.4050, L100.0100 #### [facility] [address] [place], [address] Cholesterol [Mass/Vol] 222 mg/dL High <=200 [facility] Comment on above: Result Comment: Chol esterol level, Desirable <200 mg/dL Borderline high cholesterol 200-239 mg/dL High cholesterol >=240 mg/dL Recommendations of the NCEP Adult Treatment Panel for the following risk-cutoff thresholds for the [place] population. Performed By: #### L 500.4100, L502.0250, L500.4050, L100.0100 #### [facility] [address] [place], [place], [id number] Triglyceride [Mass/Vol] 486 mg/dL High [facility] Comment on above: Result Comment: The drugs N-Acetylcysteine and Metamizole may falsely depress this assay. Normal range: <150 mg/dL Borderline High: 150-199 mg/dL High: 200-499 mg/dL Very High: >500 mg/dL Performed By: #### L 500.4100, L502.0250, L500.4050, L100.0100 #### [facility] [address] [place], [place], [id number] MCV (mean corpuscular volume ) determinationOrdered By: Katia Yoshi on 06-10-2025 MCV (RBC) [Entitic vol] 89.8 fL 80-94 [facility] Mean corpuscular hemoglobin (MCH) determinationOrdered By: Katia Yoshi on 06-10-2025 MCH (RBC) [Entitic mass] 30.6 pg 27.0-32.0 [facility] Mean corpuscular hemoglobin concentration (MCHC) determinationOrdered By: Katia Yoshi on 06-10-2025 MCHC (RBC) [Mass/Vol] 34.0 g/dL 32-[address] [facility] Mean platelet volume determi nationOrdered By: Katia Yoshi on 06-10-2025 Platelet mean volume (Bld) [Entitic vol] 11.3 fL 6.2-12.0 [facility] Microalb:Creat Ratio,Random URon 06-10-2025 Creatinine [Mass/Vol] 44.60 mg/dL Normal 39.00- 259.0 0 [facility] Comment on above: Performed By: #### L 500.4100, L502.0250, L500.4050, L100.0100 #### [facility] [address] [place], [place], [id number] MALB:CREAT UNABLE TO CALCULATE Normal <30 mg/g CRE [facility] Comment on above: Performed By: #### L 500.4100, L502.0250, L500.4050, L100.0100 #### [facility] [address] [place], [place], [id number] MICROALBUMIN,UR < 12.0 Normal <20 mg/L [facility] Comment on above: Performed By: #### L 500.4100, L502.0250, L500.4050, L100.0100 #### [facility] [address] [place], [address] Microalbumin/creat ratio urO rdered By: Katia Belle on 06-10-2025 Urine microalbumin/creatinine ratio measurement UNABLE TO CALCULATE mg/g CRE <30 [facility] Monocyte percentageOrdered B y: Katia Belle on 06-10-2025 Monocytes/100 WBC (Bld) 7.9 % 0-10 [facility] Neutrophil percentageOrdered By: Katia Belle on 06-10-2025 Neutrophils/100 WBC (Bld) 55.7 % 47-70 [facility] Nucleated red blood cell per centageOrdered By: Katia Belle on 06-10-2025 Nucleated RBC/100 WBC (Bld) [Ratio] 0 % 0-5 [facility] Platelet countOrdered By: Bree Belle on 06-10-2025 Platelets (Bld) [#/Vol] 194 10*3/uL 150-450 [facility] Potassium measurement (mass/ volume)Ordered By: Katia Belle on 06-10-2025 Potassium (Unsp spec) [Mass/Vol] 4.4 mmol/L 3.3-5.1 [facility] RBC Auto (Bld) [#/Vol]Ordere d By: Katia Belle on 06-10-2025 RBC (Bld) [#/Vol] 5.30 10*6/uL 4.6-6.2 [facility] Random urine creatinine branden urement (mass/volume)Ordered By: Katia Belle on 06-10-2025 Creatinine Unsp time (U) [Mass/Vol] 44.60 mg/dL 39.00-259.0 0 [facility] Screening total cholesterol/ high density lipoprotein (HDL) cholesterol ratioOrdered By: Katia Belle on 06-10-2025 Cholesterol.total/Nela sterol in HDL [Mass ratio] 7.90 {ratio} [facility] Serum creatinine measurement (mass/volume)Ordered By: Katia Belle on 06-10-2025 Creatinine [Mass/Vol] 0.76 mg/dL 0.70-1.[address] [facility] Serum globulin measurementOr dered By: Katia Belle on 06-10-2025 Globulin (S) [Mass/Vol] 3.5 g/dL 2.2-4.2 [facility] Serum glucose measurement (m ass/volume)Ordered By: Katia Belle on 06-10-2025 Glucose [Mass/Vol] 436 mg/dL High 70-99 [facility] Serum or plasma alanine guy otransferase (ALT) measurementOrdered By: Katia Belle on 06-10-2025 ALT [Catalytic activity/Vol] 66 U/L High <47 [facility] Serum or plasma albumin branden urement (mass/volume)Ordered By: Katia Belle on 06-10-2025 Albumin [Mass/Vol] 4.0 g/dL 3.5-5.0 [facility] Serum or plasma albumin/glob ulin mass ratioOrdered By: Katia Belle on 06-10-2025 Albumin/Globulin [Mass ratio] 1.1 {ratio} 0.9-2.4 [facility] Serum or plasma alkaline simone sphatase measurementOrdered By: Katia Belle on 06-10-2025 ALP [Catalytic activity/Vol] 152 U/L High 40-129 [facility] Serum or plasma calcium branden urement (mass/volume)Ordered By: Katia Belle on 06-10-2025 Calcium [Mass/Vol] 9.3 mg/dL 7.6-11.0 [facility] Serum or plasma cholesterol in HDL measurement (mass/volume)Ordered By: Katia Belle on 06-10-2025 Cholesterol in HDL [Mass/Vol] 28 mg/dL Low >40 [facility] Comment on above: National Cholesterol Education Program (NCEP) guidelines:<40 mg/dL: Low HDL-cholesterol (major risk factor for CHD)>= 60 mg/dL: High HDL-cholesterol (negative risk factor for CHD)HDL-cholesterol is affected by a number of factors, e.g. smoking, exercise, hormones, sex and age. Serum or plasma cholesterol measurement (mass/volume)Ordered By: Katia Belle on 06-10-2025 Cholesterol [Mass/Vol] 222 mg/dL High <201 [facility] Comment on above: Cholesterol level, D esirable <200 mg/dLBorderline high cholesterol 200-239 mg/dLHigh cholesterol >=240 mg/dLRecommendations of the NCEP Adult Treatment Panel for the following risk-cutoff thresholds for the [place] population. Serum or plasma urea nitroge n measurement (mass/volume)Ordered By: Katia Belle on 06-10-2025 Urea nitrogen [Mass/Vol] 12 mg/dL 4-19 [facility] Sodium levelOrdered By: Jacques Belle on 06-10-2025 Sodium [Moles/Vol] 132 mmol/L Low 133-145 [facility] Total proteinOrdered By: Sanya Belle on 06-10-2025 Protein [Mass/Vol] 7.5 g/dL 5.9-8.4 [facility] Triglycerides measurementOrd ered By: Katia Belle on 06-10-2025 Triglyceride [Mass/Vol] 486 mg/dL High <199 [facility] Comment on above: The drugs N-Acetylcy steine and Metamizole may falsely depress this assay. Normal range: <150 mg/dLBorderline High: 150-199 mg/dLHigh: 200-499 mg/dLVery High: >500 mg/dL Urine albumin measurement [facility] detection limit of 20 mg/L or less (mass/volume)Ordered By: Katia Belle on 06-10-2025 Albumin DL <= 20 mg/L (U) [Mass/Vol] < 12.0 mg/L <20 mg/L [facility] White blood cell (WBC) count Ordered By: Katia Belle on 06-10-2025 WBC (Bld) [#/Vol] 8.4 10*3/uL 4.4-11.0 [facility] Office Vis gus 06-09-2025 Internal Medicine Office Visit [facility] [address] [place], [place] [address] OFFICE VISIT Date of Service: 06/10/25 MR#: [id number] Acct: [id number] Name: JAIRO ADKINS Jr. Rep #: [id number] : 1980 Provider: Dr. Katia smith MD Age/Sex: 45/M Location: [facility] Status: Signed Intake Vital Signs 02/10/25 14:49 04/07/25 21:24 04/29/25 14:47 06/10/25 08:36 Height 5 ft 9 in 5 ft 9 in 5 ft 9 in 5 ft 9 in Weight: 300 lb 4 oz BMI 44.3 BP 126/72 H Blood Pressure Location Rt brachial Position Sitting Respiration 16 Pulse 75 Pulse Source Monitor Temp 97 F L Temp Source Temporal Pulse Oximetry (%) 96 Oxygen Delivery Method room air Intake Visit Reasons: 4 M FU Chief Complaint: fu Waxer Required: No Accompanied by: Self Is patient in pain?: No Allergies adhesive Allergy (Verified 06/10/25 08:29) Rash dicyclomine HCl (From Bentyl) Allergy (Verified 06/10/25 08:29) Hives fentanyl Allergy (Verified 06/10/25 08:29) Hives Latex, Natural Rubber Allergy (Verified 06/10/25 08:29) Rash methadone Allergy (Verified 06/10/25 08:29) Other prednisone Allergy (Verified 06/10/25 08:29) Rash tramadol HCl (From Ultram) Allergy (Verified 06/10/25 08:29) Hives aspirin Adverse Reaction (Verified 06/10/25 08:29) Other ketorolac tromethamine (From Toradol) Adverse Reaction (Verified 06/10/25 08:29) Upset Stomach Medications ???Medication ???Instructions ???Recorded ???Confirmed ???Type flash glucose scanning reader #1 ea 02/28/24 06/10/25 Rx (FreeStyle Roxi 2 [place]) flash glucose sensor (FreeStyle #3 ea 07/30/24 06/10/25 Rx Roxi 2 Sensor kit) blood-glucose,manager sustainability, cont #1 ea 11/27/24 08/26/25 Rx (FreeStyle Roxi 3 [place]) blood pressure monitor #1 ea 10/29/24 06/10/25 Rx insulin lispro 100 unit/mL 22 unit (0.22 mL) subcut TID #60 m L 01/15/25 06/10/25 Rx subcutaneous pen pen needle, diabetic 31 gauge x #100 ea 01/27/25 06/10/25 Rx 5/16 (Pen Needle) insulin glargine 100 unit/mL (3 35 unit (0.35 mL) subcut BID #76 m L 02/10/25 06/10/25 Rx mL) subcutaneous pen (Lantus Solostar U-100 Insulin) lisinopril 10 mg tablet 10 mg PO DAILY #90 tabs 04/22/25 0 06/10/25 Rx dulaglutide 4.5 mg/0.5 mL 4.5 mg (0.5 mL) subcut QWEEK #2 mL 04/25/25 06/10/25 Rx subcutaneous pen injector blood-glucose sensor (FreeStyle #1 KIT 06/06/25 06/10/25 Rx Roxi 3 Sensor device) dapagliflozin propanediol 5 mg 5 mg PO QAM #30 tabs 06/10/2505/17 Rx tablet (Farxiga) Nurse's Note: patient needs refills on lisinopril discuss insulin pump [facility] Medical History Vision problems History of ulcer [...] at home: Yes HPI HPI Chief Complaint: fu Details: JAIRO ADKINS, is a 45 M who presents to the office today for a follow up. He never did his blood work as previously ordered and isn't due for any screening. He isn't due for any immunizations. He does smoke. He is still at 1/2-1ppd. He still isn't ready to quit. He does need refills today. He reports he is eating healthy and reports his activity level is 'normal.' He does check his sugars at home. He reports yesterday, it was just below 100. He reports lately, they have been between 150-250. He reports he did have a couple of readings that read 'high.' He reports he hasn't been having many lows since his medication was adjusted at his last office visit. He reports he has been monitoring his carbohydrates and sugars in his diet. He is taking his medication as prescribed without problems. He is up to date on his eye exam and doesn't see podiatry. He reports he is interested in getting an insulin pump. He doesn't feel that what he is doing is managing his sugars well enough. He doesn't check his blood pres (more content not included)... Normal [facility] Ankle min 3 Viewson 04-29-20 Ankle min 3 Views [facility] Services [address] [place], [place] [address] Ankle min 3 Views MR#: [id number] Acct: [id number] Name: JAIRO ADKINS Jr. Rep #: [id number] : 1980 M 45 From: Madi esparza MD PCP: Dr. Katia Belle MD Status: PRE ER Study: Ankle min 3 Views Date of Exam: 04/29/25 Exam# [id number] Ordering Dr: Brendan Alcazar P. PROCEDURE: ANKLE MIN 3 VIEWS 04/29/2025 REASON FOR EXAM: PAIN TECHNIQUE: ANKLE MIN 3 VIEWS COMPARISON: None FINDINGS: Bones: Calcaneal spurs. Joints: Unremarkable Soft tissues: Unremarkable Other: RAD/Ankle min 3 Views IMPRESSION: No fracture or dislocation. Calcaneal spurs. Reading Location: [id number] CC: Dr. Katia Belle MD; ED PHYSICIAN PROVIDER Bellows Assembler: Signed Normal [facility] Emergency Department Summary on 04-29-2025 Emergency Department Summary [facility] Medical Records Department [address] [place] [address] Emergency Department Summary 04/29/25 MR#: [id number] Acct: [id number] Name: JAIRO ADKINS Jr. Rep #: [id number] : 1980 45 From: Eliecer Cortez DO PCP: Dr. Katia Belle MD Status:DEP ER Location: ED HPI History of Present Illness Chief Complaint: Lower Extremity Injury [facility] Medical History Vision problems History of ulcer disease Hearing problem History of blood transfusion Back problem Acute arthritis Seasonal allergies Substance abuse Anxiety Depression Smoker Migraines Diabetes TTP (thrombotic thrombocytopenic purpura) Home Medications ???Medication ???Instructions ???Recorded ???Last Taken ???Type flash glucose scanning reader #1 ea 02/28/24 Unknown Rx (FreeStyle Roxi 2 [place]) flash glucose sensor (FreeStyle #3 ea 07/30/24 Unknown Rx Roxi 2 Sensor kit) blood-glucose,manager sustainability, cont #1 ea 09/11/24 Unknown Rx (FreeStyle Roxi 3 [place]) blood pressure monitor #1 ea 10/29/24 Unknown Rx insulin lispro 100 unit/mL 22 unit (0.22 mL) subcut TID #60 m L 01/15/25 Unknown Rx subcutaneous pen pen needle, diabetic 31 gauge x #100 ea 01/27/25 Unknown Rx 5/16 (Pen Needle) insulin glargine 100 unit/mL (3 35 unit (0.35 mL) subcut BID #76 m L 02/10/25 Unknown Rx mL) subcutaneous pen (Lantus Solostar U-100 Insulin) blood-glucose sensor (FreeStyle #1 KIT 03/11/25 Unknown Rx Roxi 3 Sensor device) lisinopril 10 mg tablet 10 mg PO DAILY #90 tabs 04/22/25 U nknown Rx dulaglutide 4.5 mg/0.5 mL 4.5 mg (0.5 mL) subcut QWEEK #2 mL 04/25/25 Unknown Rx subcutaneous pen injector hydrocodone-acetaminoph en 5-325mg 1 tab PO Q6H PRN PRN Pain 3 days 04/29/25 Unknown Rx 5mg-325mg #10 TABLETS Allergy/AdvReac Type Severity Reaction Status Date / Time adhesive Allergy Rash Verified 04/29/25 14:49 dicyclomine HCl (From Bentyl) Allergy Hives Verified 04/29/25 14:49 fentanyl Allergy Hives Verified 04/29/25 14:49 Latex, Natural Rubber Allergy Rash Verified 04/29/25 14:49 methadone Allergy Other Verified 04/29/25 14:49 prednisone Allergy Rash Verified 04/29/25 14:49 tramadol HCl (From Ultram) Allergy Hives Verified 04/29/25 14:49 aspirin AdvReac Other Verified 04/29/25 14:49 ketorolac tromethamine (From AdvReac Upset Verified 04/29/25 14:49 Toradol) Stomach Family History Mother Diabetes Heart disease Cancer unknown Asthma Anxiety Arthritis Surgical History H/O eye surgery Social History household members: significant other, children and other [place] house current occupational status: unemployed Smoking [...] Yes EXAM Physical Exam Const Vital Signs: 04/29/25 14:47 04/29/25 16:56 Temperature 97.2 F L 97.6 F L Temperature Source Temporal Pulse Rate 97 81 Respiratory Rate 17 16 Blood Pressure 126/79 H 128/71 H Blood Pressure Mean 94 90 Pulse Ox 97 96 Oxygen Delivery Method Room Air MDM MDM MDM Narrative Medical decision making narrative: Differential diagnosis includes fracture, sprain, and contusion. X-rays of the left foot will be obtained to assess for fracture. X-rays of the left ankle will be obtained to assess for fracture. Radiography Diagnostic Testing: Clinical Impression(s) from Imaging Studies Ankle X-Ray 04/29/25 15:10 IMPRESSION: No fracture or dislocation. Calcaneal spurs. Reading Location: [facility] Foot X-Ray 04/29/25 15:10 IMPRESSION: Mild soft tissue swelling. No fracture. Mild degree of joint space narrowing at the 1st metatarsophalangeal joint. Reading Location: [facility] X-rays of the left ankle were obtained. There are 3 views. On my independent interpretation, there is no acute fracture. There is no dislocation. There is some mild soft tissue swelling. Radiologist also interpreted the x-rays and agrees. X-rays of the left foot were obtained. There are 3 views. On my independent interpretation, there is no acute fracture. There is no dislocation. There (more content not included)... Normal [facility] Foot min 3 Viewson 5 Foot min 3 Views [facility] Services [address] [place] [address] Foot min 3 Views MR#: [id number] Acct: [id number] Name: JAIRO ADKINS . Rep #: [id number] : 1980 M 45 From: Madi esparza MD PCP: Dr. Katia Belle MD Status: PRE ER Study: Foot min 3 Views Date of Exam: 04/29/25 Exam# [id number] Ordering Dr: Brendan Alcazar PROCEDURE: FOOT MIN 3 VIEWS 04/29/2025 REASON FOR EXAM: Pain. TECHNIQUE: FOOT MIN 3 VIEWS COMPARISON: None FINDINGS: Bones: No fracture. Joints: Mild degree of joint space narrowing at the 1st metatarsophalangeal joint. Soft tissues: Mild soft tissue swelling Other: RAD/Foot min 3 Views IMPRESSION: Mild soft tissue swelling. No fracture. Mild degree of joint space narrowing at the 1st metatarsophalangeal joint. Reading Location: [id number] CC: Dr. Katia Belle MD; ED PHYSICIAN PROVIDER Bellows Assembler: Signed Normal [facility] [id number] ACTIVITYOrdered By: Mandie Calix on 04-25-2025 [id number] Inhibitor Not Indicated [facility] vWf cleaving protease actual/normal Chromogenic method (PPP) [Rel catalytic activity/Vol] 83 % [facility] Comment on above: [id number] activity is measured by chromogenic ELLIE (enzyme-linked immunosorbent assay). Severe deficiencies of BBKPXH28 (activity <10%) is a relatively specific finding [...] in conjunction with other information, including the patient s medical history, clinical and laboratory findings, when [...] evaluated for monitoring TTP relapse or recurrence. [facility] [id number] IGG ABOrdered By: Arcadio Rowley on 04-25-2025 Interpretation and review of laboratory results Normal [facility] vWf cleaving protease inhibitor Qn (PPP) U/mL NINF - 12.0 U/mL [facility] Comment on above: Anti-ZVUKOT32 IgG an tibodies concentration is determined by ELLIE (enzyme-linked immunosorbent assay). This test was developed and its performance characteristics determined by the [facility] at [facility]. It has not been cleared [...] with high concentrations of autoantibodies other than anti-HPPIYS10 may result in weak positive or borderline results. Elevated bilirubin levels may cause a negative interference with anti-MVOZYC92 IgG antibodies test results. [facility] [id number] ACTIVITYon 04-24-20 25 [id number] Activity 83 % Normal [facility] Comment on above: Result Comment: FRAN TS13 activity is measured by chromogenic ELLIE (enzyme-linked immunosorbent assay). Severe deficiencies of ZOQYUE29 (activity <10%) is a relatively specific finding [...] TTP relapse or recurrence. Performed By: #### L AB980, A1CB #### [facility] (DEFAULT) [address] [place] [address] [id number] Inhibitor Not Indicated Normal [facility] Comment on above: Performed By: #### L AB980, A1CB #### [facility] (DEFAULT) [address] [place] [address] [id number] IGG ABon 04-24-2025 ZJHXWM01 IgG Antibody <6.0 Normal <=12.0 [facility] Comment on above: Result Comment: Anti -RTGJWY41 IgG antibodies concentration is determined by ELLIE (enzyme-linked immunosorbent assay). This test was developed and its performance characteristics determined by the [facility] at [facility]. It has not been cleared [...] with high concentrations of autoantibodies other than anti-XCLKIP04 may result in weak positive or borderline results. Elevated bilirubin levels may cause a negative interference with anti-RGREQQ53 IgG antibodies test results. Performed By: #### L AB980, A1CB #### [facility] (DEFAULT) [address] [place] [address] CBC AND ELECTRONIC DIFFon Basophils (Bld) [#/Vol] 0.07 10*3/uL 0.00 - 0.09 K/uL [facility] Basophils/100 WBC (Bld) 0.8 % [facility] Differential cell count method Nom (Bld) Electronic Differential [facility] Eosinophils (Bld) [#/Vol] 0.67 10*3/uL High 0.00 - 0.48 K/uL [facility] Eosinophils/100 WBC (Bld) 7.6 % [facility] Erythrocyte distribution width (RBC) [Ratio] 13.4 % 10.9 - 14.3 % [facility] Hematocrit (Bld) [Volume fraction] 47.1 % 39.6 - 48.8 % [facility] Hemoglobin (Bld) [Mass/Vol] 16.3 g/dL 13.4 - 16.8 g/dL [facility] Immature granulocytes (Bld) [#/Vol] 0.04 10*3/uL NINF - 0.07 K/uL [facility] Immature granulocytes/100 WBC (Bld) 0.5 % [facility] Interpretation and review of laboratory results Abnormal [facility] Lymphocytes (Bld) [#/Vol] 2.45 10*3/uL 0.83 - 3.57 K/uL [facility] Lymphocytes/100 WBC (Bld) 27.7 % [facility] MCH (RBC) [Entitic mass] 30.6 pg 26.1 - 33.3 pg [facility] MCHC (RBC) [Mass/Vol] 34.6 g/dL 31.9 - 36.5 g/dL [facility] MCV (RBC) [Entitic vol] 88.5 fL 79.0 - 94.5 fL [facility] Monocytes (Bld) [#/Vol] 0.65 10*3/uL 0.24 - 0.93 K/uL [facility] Monocytes/100 WBC (Bld) 7.3 % [facility] Neutrophils (Bld) [#/Vol] 4.97 10*3/uL 1.57 - 6.19 K/uL [facility] Nucleated RBC/100 WBC (Bld) [Ratio] 0 % [facility] Platelet mean volume (Bld) [Entitic vol] 9.3 fL 8.7 - 12.3 fL [facility] Platelets (Bld) [#/Vol] 261 10*3/uL 146 - 337 K/uL [facility] RBC (Bld) [#/Vol] 5.32 10*6/uL [facility] Segmented neutrophils/100 WBC (Bld) 56.1 % [facility] WBC (Bld) [#/Vol] 8.85 10*3/uL 3.73 - 10.10 K/uL [facility] Basophils (Bld) [#/Vol] 0.07 10*3/uL Normal 0.00-0.09 [facility] Comment on above: Performed By: #### L AB980, A1CB #### [facility] (DEFAULT) [address] [address] Basophils/100 WBC (Bld) 0.8 % Normal [facility] Comment on above: Performed By: #### L AB980, A1CB #### [facility] (DEFAULT) [address] [place] [address] DIFF STATUS Electronic Differential Normal [facility] Comment on above: Performed By: #### L AB980, A1CB #### [facility] (DEFAULT) [address] [address] Eosinophils (Bld) [#/Vol] 0.67 10*3/uL High 0.00-0.48 [facility] Comment on above: Performed By: #### L AB980, A1CB #### [facility] (DEFAULT) [address] [address] Eosinophils/100 WBC (Bld) 7.6 % Normal [facility] Comment on above: Performed By: #### L AB980, A1CB #### U [facility] (DEFAULT) [address] [address] Hematocrit (Bld) [Volume fraction] 47.1 % Normal 39.6-48.8 [facility] Comment on above: Performed By: #### L AB980, A1CB #### [facility] (DEFAULT) [address] [address] Hemoglobin (Bld) [Mass/Vol] 16.3 g/dL Normal 13.4-16.8 [facility] Comment on above: Performed By: #### L AB980, A1CB #### [facility] (DEFAULT) [address] [address] Immature Grans % 0.5 % Normal [facility] Comment on above: Performed By: #### L AB980, A1CB #### [facility] (DEFAULT) [address] [place] [address] Immature Grans Absolute 0.04 K/uL Normal <=0.07 O [facility] Comment on above: Performed By: #### L AB980, A1CB #### U [facility] (DEFAULT) [address] [place] [address] Lymphocytes (Bld) [#/Vol] 2.45 10*3/uL Normal 0.83-3.57 [facility] Comment on above: Performed By: #### L AB980, A1CB #### [facility] (DEFAULT) [address] [address] Lymphocytes/100 WBC (Bld) 27.7 % Normal [facility] Comment on above: Performed By: #### L AB980, A1CB #### [facility] (DEFAULT) [address] [address] MCV (RBC) [Entitic vol] 88.5 fL Normal 79.0-94.5 O [facility] Comment on above: Performed By: #### L AB980, A1CB #### [facility] (DEFAULT) [address] [address] Mean Cell Hgb 30.6 pg Normal 26.1-33.3 [facility] Comment on above: Performed By: #### L AB980, A1CB #### [facility] (DEFAULT) [address] [address] Mean Cell Hgb Conc 34.6 g/dL Normal 31.9-36.5 [facility] Comment on above: Performed By: #### L AB980, A1CB #### [facility] (DEFAULT) [address] [address] Monocytes (Bld) [#/Vol] 0.65 10*3/uL Normal 0.24-0.93 [facility] Comment on above: Performed By: #### L AB980, A1CB #### [facility] (DEFAULT) [address] [place] [address] Monocytes/100 WBC (Bld) 7.3 % Normal O [facility] Comment on above: Performed By: #### L AB980, A1CB #### U [facility] (DEFAULT) [address] [place] [address] Nucleated RBC 0.0 /100 WBC Normal <=0.2 [facility] Comment on above: Performed By: #### L AB980, A1CB #### U [facility] (DEFAULT) [address] [place] [address] Platelet mean volume (Bld) [Entitic vol] 9.3 fL Normal 8.7-12.3 [facility] Comment on above: Performed By: #### L AB980, A1CB #### [facility] (DEFAULT) [address] [place] [address] Platelets (Bld) [#/Vol] 261 10*3/uL Normal 146-337 [facility] Comment on above: Performed By: #### L AB980, A1CB #### [facility] (DEFAULT) [address] [place] [address]68 RBC (Bld) [#/Vol] 5.32 10*6/uL Normal 4.38-5.83 [facility] Comment on above: Performed By: #### L AB980, A1CB #### [facility] (DEFAULT) [address] [place] [address] RBC Distribution 13.4 % Normal 10.9-14.[address] [facility] Comment on above: Performed By: #### L AB980, A1CB #### [facility] (DEFAULT) [address] [place] [address] Segs + Bands Auto 56.1 % Normal [facility] Comment on above: Performed By: #### L AB980, A1CB #### [facility] (DEFAULT) [address] [place] [address] Segs + Bands,Absolute Auto 4.97 K/uL Normal 1.57-6.19 [facility] Comment on above: Performed By: #### L AB980, A1CB #### [facility] (DEFAULT) [address] [place] [address] WBC (Bld) [#/Vol] 8.85 10*3/uL Normal 3.73-10.10 [facility] Comment on above: Performed By: #### L AB980, A1CB #### [facility] (DEFAULT) [address] [place] [address] CMPN WITHOUT GLUCOSEon 04-24 Albumin [Mass/Vol] 4.1 g/dL 3.5 - 5.0 g/dL [facility] ALP [Catalytic activity/Vol] 127 U/L High 32 - 126 U/L [facility] ALT [Catalytic activity/Vol] 39 U/L 10 - 52 U/L [facility] Anion gap [Moles/Vol] 10 mmol/L 7 - 17 mmol/L [facility] AST [Catalytic activity/Vol] 25 U/L 10 - 39 U/L [facility] Bilirubin [Mass/Vol] 0.4 mg/dL NINF - 1.5 mg/dL [facility] Calcium [Mass/Vol] 9.2 mg/dL 8.6 - 10. 5 mg/dL [facility] Chloride [Moles/Vol] 102 mmol/L 98 - 10 8 mmol/L [facility] CO2 [Moles/Vol] 24 mmol/L 21 - 31 mmol/L [facility] Creatinine [Mass/Vol] 0.8 mg/dL 0.70 - 1.30 mg/dL [facility] eGFR, CKD-EPI, Male - PINF [facility] Comment on above: Reported eGFR is bas ed on the CKD-EPI 2020 equation using creatinine, age, and sex. Interpretation and review of laboratory results Abnormal [facility] Potassium [Moles/Vol] 4.2 mmol/L 3.5 - 5.0 mmol/L [facility] Protein [Mass/Vol] 7.4 g/dL 6.4 - 8.3 g/dL [facility] Sodium [Moles/Vol] 132 mmol/L Low 135 - 145 mmol/L [facility] Urea nitrogen [Mass/Vol] 9 mg/dL 7 - 25 mg/dL [facility] Urea nitrogen/Creatinine [Mass ratio] 11 mg/[facility] Albumin [Mass/Vol] 4.1 g/dL Normal 3.5-5.0 [facility] Comment on above: Performed By: #### L DO, CMPN #### [facility] (DEFAULT) [address] [place] [address] ALP [Catalytic activity/Vol] 127 U/L High 32-126 [facility] Comment on above: Performed By: #### L DO, CMPN #### [facility] (DEFAULT) [address] [place] [address] ALT [Catalytic activity/Vol] 39 U/L Normal 10-52 [facility] Comment on above: Performed By: #### L DO, CMPN #### [facility] (DEFAULT) [address] [place] [address] Anion gap [Moles/Vol] 10 mmol/L Normal 7-17 [facility] Comment on above: Performed By: #### L DO, CMPN #### [facility] (DEFAULT) [address] [place] [address]479 AST [Catalytic activity/Vol] 25 U/L Normal 10-39 [facility] Comment on above: Performed By: #### L DO, CMPN #### [facility] (DEFAULT) [address] [place] [address]32 Bilirubin [Mass/Vol] 0.4 mg/dL Normal <1.5 [facility] Comment on above: Performed By: #### L DO, CMPN #### [facility] (DEFAULT) [address] [place] [address] Calcium [Mass/Vol] 9.2 mg/dL Normal 8.6-10.5 [facility] Comment on above: Performed By: #### L DO, CMPN #### [facility] (DEFAULT) [address] [place] [address]3 Chloride [Moles/Vol] 102 mmol/L Normal 98-108 [facility] Comment on above: Performed By: #### L DO, CMPN #### [facility] (DEFAULT) [address] [place] [address] CO2 [Moles/Vol] 24 mmol/L Normal 21-31 [facility] Comment on above: Performed By: #### L DO, CMPN #### [facility] (DEFAULT) [address] [place] [address]773 Creatinine [Mass/Vol] 0.80 mg/dL Normal 0.70-1.30 [facility] Comment on above: Performed By: #### L DO, CMPN #### [facility] (DEFAULT) [address] [place] [address] eGFR, CKD-EPI, Male > Normal >=60 [facility] Comment on above: Result Comment: Repo rted eGFR is based on the CKD-EPI 2020 equation using creatinine, age, and sex. Performed By: #### L DO, CMPN #### [facility] (DEFAULT) [address] [place] [address] Potassium [Moles/Vol] 4.2 mmol/L Normal 3.5-5.0 [facility] Comment on above: Performed By: #### L DO, CMPN #### [facility] (DEFAULT) [address] [place] [address] Protein [Mass/Vol] 7.4 g/dL Normal 6.4-8.3 [facility] Comment on above: Performed By: #### L DO, CMPN #### [facility] (DEFAULT) [address] [place] [address] Sodium [Moles/Vol] 132 mmol/L Low 135-145 [facility] Comment on above: Performed By: #### L DO CMPN #### [facility] (DEFAULT) [address] [place] [address]10 Urea nitrogen [Mass/Vol] 9 mg/dL Normal 7-25 [facility] Comment on above: Performed By: #### L DO CMPN #### [facility] (DEFAULT) [address] [place] [address] 71009 Urea nitrogen/Creatinine [Mass ratio] 11 mg/mg Normal [facility] Comment on above: Performed By: #### L DO CMPN #### [facility] (DEFAULT) [address] [place] [address] HEMOGLOBIN A1Con 04-24-2025 Average glucose Estimated from glycated hemoglobin (Bld) [Mass/Vol] 183 mg/dL [facility] HbA1c (Bld) [Mass fraction] 8 % High 4.7 - 5.6 % [facility] Interpretation and review of laboratory results Abnormal [facility] Glucose [Mass/Vol] 183 mg/dL Normal [facility] Comment on above: Performed By: #### L AB980, A1CB #### [facility] (DEFAULT) [address] [place] [address] Hemoglobin A1C HPLC 8.0 % High 4.7-5.6 [facility] Comment on above: Performed By: #### L AB980, A1CB #### [facility] (DEFAULT) [address] [place] [address]271 LACTATE DEHYDROGENASEon 04-15 Interpretation and review of laboratory results Normal [facility] LDH Lactate to pyruvate reaction [Catalytic activity/Vol] 132 U/L 100 - 190 U/L [facility] LD Total 132 U/L Normal 100-190 [facility] Comment on above: Performed By: #### L DO CMPN #### [facility] (DEFAULT) [address] [place] [address] No Panel Informationon 04-24 [facility] URINE PROTEIN/CREA RATIO, RA Frank 04-24-2025 Creatinine (U) [Mass/Vol] 80.78 mg/dL [facility] Protein Unsp time (U) [Mass/Vol] 7 mg/dL [facility] Protein/Creatinine (U) [Mass ratio] 0.087 mg[facility] Creatinine (U) [Mass/Vol] 80.78 mg/dL Normal [facility] Comment on above: Performed By: #### L AB980, A1CB #### [facility] (DEFAULT) [address] [address] Prot/Creat Ratio 0.087 mg/mg Normal [facility] Comment on above: Performed By: #### L AB980, A1CB #### [facility] (DEFAULT) [address] [address] Protein Ql (U) 7 mg/dL Normal [facility] Comment on above: Performed By: #### L AB980, A1CB #### [facility] (DEFAULT) [address] [place] [address] Emergency Department Summary on 04-07-2025 Emergency Department Summary [facility] Medical Records Department [address] [place] [address] Emergency Department Summary 04/07/25 MR#: [id number] Acct: [id number] Name: JAIRO ADKINS . Rep #: [id number] : 1980 45 From: Eliecer Cortez DO PCP: Dr. Katia Belle MD Status:DEP ER Location: ED HPI History of Present Illness HPI Narrative: Patient presents with left shoulder pain that has been constant for the past month. Patient states it is gradually getting worse. Patient states it is constant. Patient describes it as sharp and stabbing. Patient states it is worse when he wakes up in the morning. Patient states it is worse with any movement. Patient states nothing seems to help with it. Patient denies any paresthesias or weakness. Patient states it feels similar to the pain he had in his right shoulder when he had calcific tendinitis. Patient states he had injections done at that time which helped. Patient states his senior behavioral scientist referred him to a specialist for this. Patient states he needs x-rays so he can see his specialist. Chief Complaint: Upper Extremity Injury Informant: patient Onset/Context/Timing Onset: Month(s) (1) Context: Gradual Onset Timing: Continuous Quality of Pain: Sharp and Stabbing Location: Left shoulder Worsened by: Elevation, movement Relieved by: Nothing Associated Symptoms Associated Symptoms: Negative for Parasthesia, Weakness or Loss of Funtion [facility] Medical History Vision problems History of ulcer disease Hearing problem History of blood transfusion Back problem Acute arthritis Seasonal allergies Substance abuse Anxiety Depression Smoker Migraines Diabetes TTP (thrombotic thrombocytopenic purpura) Home Medications ???Medication ???Instructions ???Recorded ???Last Taken ???Type flash glucose scanning reader #1 ea 02/28/24 Unknown Rx (FreeStyle Roxi 2 [place]) flash glucose sensor (FreeStyle #3 ea 07/30/24 Unknown Rx Roxi 2 Sensor kit) blood-glucose,manager sustainability, cont #1 ea 09/11/24 Unknown Rx (FreeStyle Roxi 3 [place]) blood pressure monitor #1 ea 10/29/24 Unknown Rx insulin lispro 100 unit/mL 22 unit (0.22 mL) subcut TID #60 m L 01/15/25 Unknown Rx subcutaneous pen lisinopril 10 mg tablet 10 mg PO DAILY #90 tabs 01/15/25 U nknown Rx pen needle, diabetic 31 gauge x #100 ea 01/27/25 Unknown Rx 5/16 (Pen Needle) dulaglutide 4.5 mg/0.5 mL 4.5 mg (0.5 mL) subcut QWEEK #2 mL 02/10/25 Unknown Rx subcutaneous pen injector insulin glargine 100 unit/mL (3 35 unit (0.35 mL) subcut BID #76 m L 02/10/25 Unknown Rx mL) subcutaneous pen (Lantus Solostar U-100 Insulin) blood-glucose sensor (FreeStyle #1 KIT 03/11/25 Unknown Rx Roxi 3 Sensor device) Allergy/AdvReac Type Severity Reaction Status Date / Time adhesive Allergy Rash Verified 04/07/25 21:24 dicyclomine HCl (From Bentyl) Allergy Hives Verified 04/07/25 21:24 fentanyl Allergy Hives Verified 04/07/25 21:24 Latex, Natural Rubber Allergy Rash Verified 04/07/25 21:24 methadone Allergy Other Verified 04/07/25 21:24 prednisone Allergy Rash Verified 04/07/25 21:24 tramadol HCl (From Ultram) Allergy Hives Verified 04/07/25 21:24 aspirin AdvReac Other Verified 04/07/25 21:24 ketorolac tromethamine (From AdvReac Upset Verified 04/07/25 21:24 Toradol) Stomach Family History Mother Diabetes Heart disease Cancer unknown Asthma Anxiety Arthritis Surgical History H/O eye surgery Social History household members: significant other, children and other [place] house current occupational status: unemployed Smoking [...] or change in vision ENT ENT ED: Denies rhinorrhea or sore throat Cardiovascular Cardiovascular: Denies chest pain or palpitations Respiratory/Chest Respiratory/Chest: Denies cough or dyspnea Gastrointestinal Gastrointestinal: Denies nausea or vomiting Genitourinary Genitourinary ED: Denies dysuria or hematuria Musculoskeletal Musculoskeletal: Reports back pain; Denies neck pain Integumentary Denies abscess or rash Neurologic Neurologic: Denies headache(s) or weakness (more content not included)... Normal [facility] Shoulder min 2 Viewson 04-07 Shoulder min 2 Views [facility] Imaging Services [address] [place] [address] Shoulder min 2 Views MR#: [id number] Acct: [id number] Name: JAIRO ADKINS Jr. Rep #: [id number] : 1980 M 45 From: Fran Choudhury MD PCP: Dr. Katia Belle MD Status: PRE ER Study: Shoulder min 2 Views Date of Exam: 04/07/25 Exam# [id number] Ordering Dr: Provider,Ed P. PROCEDURE: SHOULDER MIN 2 VIEWS 04/07/2025 REASON FOR EXAM: PAIN TECHNIQUE: SHOULDER MIN 2 VIEWS COMPARISON: Left shoulder radiographs on 08/08/2018 FINDINGS: No fracture or dislocation. There are punctate corticated calcifications adjacent to the superior rim of the glenoid. Joint spaces are maintained. Bone mineral density is subjectively normal. The visualized lung is unremarkable. RAD/Shoulder min 2 Views IMPRESSION: Calcifications adjacent to the superior rim of the glenoid, likely the sequela of calcific tendinopathy. Reading Location: [facility] CC: Dr. Katia Belle MD; ED PHYSICIAN PROVIDER Bellows Assembler: Signed Normal [facility] Laboratory - Hematology and Cell countsOrdered By: Katia Belle on 02-10-2025 HbA1c (Bld) [Mass fraction] 9.2 % High 4.2-6.3 [facility] Internal Medicine Office Vis iton 02-09-2025 Internal Medicine Office Visit [facility] [place] [address] [place] [address] OFFICE VISIT Date of Service: 02/10/25 MR#: [id number] Acct: [id number] Name: JAIRO ADKINS Jr. Rep #: [id number] : 1980 Provider: Dr. Katia smith MD Age/Sex: 45/M Location: [facility] Status: Signed Intake Vital Signs 10/29/24 15:00 [...] Reasons: 3 m fu Chief Complaint: fu Waxer Required: No Accompanied by: Self Is patient [...] ea 02/28/24 02/10/25 Rx (FreeStyle Roxi 2 [place]) flash glucose sensor (FreeStyle #3 ea 07/30/24 02/10/25 Rx Roxi 2 Sensor kit) blood-glucose meter,continuous #1 ea 09/11/24 02/10/25 Rx (FreeStyle Roxi 3 [place]) blood pressure monitor #1 ea 10/29/24 02/10/25 [...] you fallen in the past year?: No PFSH Medical History Vision problems History of [...] with a (more content not included)... Normal [facility] XR Cervical spine 4 Viewson 01-23-2025 [...] C6 without instability on flexion or extension. [facility] Radiology Study observation (narrative) [facility] XR Cervical spine 4 ViewsOrd ered By: Tim Lou on 01-23-2025 [facility] Work Phone: XR SPINE CERVICAL 4-5 VIEWSo [...] without instability on flexion or extension. Normal [facility] [id number] ACTIVITYon 01-17-20 25 [id number] Activity 89 % Normal [facility] Comment on above: Result Comment: FRAN TS13 activity is measured by chromogenic ELLIE (enzyme-linked immunosorbent assay). Severe deficiencies of [id number] (activity <10%) is a relatively specific finding [...] TTP relapse or recurrence. Performed By: #### L , CMPN #### [facility] (DEFAULT) [address] [address] [id number] Inhibitor Not Indicated Normal [facility] Comment on above: Performed By: #### L DO, CMPN #### [facility] (DEFAULT) [address] [place] [address] [id number] IGG ABon 01-16-2025 [id number] IgG Antibody <6.0 Normal <=12.0 [facility] Comment on above: Result Comment: Anti -HGRRYC21 IgG antibodies concentration is determined by ELLIE (enzyme-linked immunosorbent assay). This test was developed and its performance characteristics determined by the [facility] at [facility]. It has not been cleared [...] with high concentrations of autoantibodies other than anti-[id number] may result in weak positive or borderline results. Elevated bilirubin levels may cause a negative interference with anti-MMWIKY71 IgG antibodies test results. Performed By: #### L DO, CMPN #### [facility] (DEFAULT) [address] [place] [address] CBC AND ELECTRONIC DIFFon Basophils (Bld) [#/Vol] 0.07 10*3/uL 0.00 - 0.09 K/uL [facility] Basophils/100 WBC (Bld) 0.8 % [facility] Differential cell count method Nom (Bld) Electronic Differential [facility] Eosinophils (Bld) [#/Vol] 0.61 10*3/uL High 0.00 - 0.48 K/uL [facility] Eosinophils/100 WBC (Bld) 6.7 % [facility] Erythrocyte distribution width (RBC) [Ratio] 13.6 % 10.9 - 14.3 % [facility] Hematocrit (Bld) [Volume fraction] 47.5 % 39.6 - 48.8 % [facility] Hemoglobin (Bld) [Mass/Vol] 16.3 g/dL 13.4 - 16.8 g/dL [facility] Immature granulocytes (Bld) [#/Vol] 0.05 10*3/uL NINF - 0.07 K/uL [facility] Immature granulocytes/100 WBC (Bld) 0.5 % [facility] Interpretation and review of laboratory results Abnormal [facility] Lymphocytes (Bld) [#/Vol] 2.51 10*3/uL 0.83 - 3.57 K/uL [facility] Lymphocytes/100 WBC (Bld) 27.6 % [facility] MCH (RBC) [Entitic mass] 30.2 pg 26.1 - 33.3 pg [facility] MCHC (RBC) [Mass/Vol] 34.3 g/dL 31.9 - 36.5 g/dL [facility] MCV (RBC) [Entitic vol] 88 fL 79.0 - 94.5 fL [facility] Monocytes (Bld) [#/Vol] 0.71 10*3/uL 0.24 - 0.93 K/uL [facility] Monocytes/100 WBC (Bld) 7.8 % O [facility] Neutrophils (Bld) [#/Vol] 5.16 10*3/uL 1.57 - 6.19 K/uL [facility] Nucleated RBC/100 WBC (Bld) [Ratio] 0 % NINF [facility] Platelet mean volume (Bld) [Entitic vol] 9.4 fL 8.7 - 12.3 fL [facility] Platelets (Bld) [#/Vol] 255 10*3/uL 146 - 337 K/uL [facility] RBC (Bld) [#/Vol] 5.4 10*6/uL [facility] Segmented neutrophils/100 WBC (Bld) 56.6 % [facility] WBC (Bld) [#/Vol] 9.11 10*3/uL 3.73 - 10.10 K/uL [facility] Basophils (Bld) [#/Vol] 0.07 10*3/uL Normal 0.00-0.09 [facility] Comment on above: Performed By: #### L AB980 #### [facility] (DEFAULT) [address] [place] [address] Basophils/100 WBC (Bld) 0.8 % Normal [facility] Comment on above: Performed By: #### L AB980 #### [facility] (DEFAULT) [address] [address] DIFF STATUS Electronic Differential Normal [facility] Comment on above: Performed By: #### L AB980 #### [facility] (DEFAULT) [address] [place] [address] Eosinophils (Bld) [#/Vol] 0.61 10*3/uL High 0.00-0.48 [facility] Comment on above: Performed By: #### L AB980 #### [facility] (DEFAULT) [address] [address] Eosinophils/100 WBC (Bld) 6.7 % Normal [facility] Comment on above: Performed By: #### L AB980 #### [facility] (DEFAULT) [address] [address] Hematocrit (Bld) [Volume fraction] 47.5 % Normal 39.6-48.8 [facility] Comment on above: Performed By: #### L AB980 #### [facility] (DEFAULT) [address] [address] Hemoglobin (Bld) [Mass/Vol] 16.3 g/dL Normal 13.4-16.8 [facility] Comment on above: Performed By: #### L AB980 #### [facility] (DEFAULT) [address] [address] Immature Grans % 0.5 % Normal [facility] Comment on above: Performed By: #### L AB980 #### [facility] (DEFAULT) [address] [address] Immature Grans Absolute 0.05 K/uL Normal <=0.07 [facility] Comment on above: Performed By: #### L AB980 #### [facility] (DEFAULT) [address] [address] Lymphocytes (Bld) [#/Vol] 2.51 10*3/uL Normal 0.83-3.57 [facility] Comment on above: Performed By: #### L AB980 #### [facility] (DEFAULT) [address] [address] Lymphocytes/100 WBC (Bld) 27.6 % Normal [facility] Comment on above: Performed By: #### L AB980 #### [facility] (DEFAULT) [address] [place] [address] MCV (RBC) [Entitic vol] 88.0 fL Normal 79.0-94.5 O [facility] Comment on above: Performed By: #### L AB980 #### [facility] (DEFAULT) [address] [place] [address]671 Mean Cell Hgb 30.2 pg Normal 26.1-33.3 [facility] Comment on above: Performed By: #### L AB980 #### [facility] (DEFAULT) [address] [place] [address]192 Mean Cell Hgb Conc 34.3 g/dL Normal 31.9-36.5 [facility] Comment on above: Performed By: #### L AB980 #### [facility] (DEFAULT) [address] [place] [address]88 Monocytes (Bld) [#/Vol] 0.71 10*3/uL Normal 0.24-0.93 [facility] Comment on above: Performed By: #### L AB980 #### [facility] (DEFAULT) [address] [place] [address] Monocytes/100 WBC (Bld) 7.8 % Normal [facility] Comment on above: Performed By: #### L AB980 #### [facility] (DEFAULT) [address] [place] [address] Nucleated RBC 0.0 /100 WBC Normal <=0.2 [facility] Comment on above: Performed By: #### L AB980 #### [facility] (DEFAULT) [address] [place] [address] Platelet mean volume (Bld) [Entitic vol] 9.4 fL Normal 8.7-12.3 [facility] Comment on above: Performed By: #### L AB980 #### [facility] (DEFAULT) [address] [place] [address] Platelets (Bld) [#/Vol] 255 10*3/uL Normal 146-337 [facility] Comment on above: Performed By: #### L AB980 #### [facility] (DEFAULT) [address] [address] RBC (Bld) [#/Vol] 5.40 10*6/uL Normal 4.38-5.83 [facility] Comment on above: Performed By: #### L AB980 #### [facility] (DEFAULT) [address] [place] [address]99 RBC Distribution 13.6 % Normal 10.9-14.[address] [facility] Comment on above: Performed By: #### L AB980 #### [facility] (DEFAULT) [address] [address] Segs + Bands Auto 56.6 % Normal [facility] Comment on above: Performed By: #### L AB980 #### [facility] (DEFAULT) [address] [address] Segs + Bands,Absolute Auto 5.16 K/uL Normal 1.57-6.19 [facility] Comment on above: Performed By: #### L AB980 #### [facility] (DEFAULT) [address] [address] WBC (Bld) [#/Vol] 9.11 10*3/uL Normal 3.73-10.10 [facility] Comment on above: Performed By: #### L AB980 #### [facility] (DEFAULT) [address] [address] COMPREHENSIVE METABOLIC PANE Adán 01-16-2025 Albumin [Mass/Vol] 4.2 g/dL 3.5 - 5.0 g/dL [facility] ALP [Catalytic activity/Vol] 111 U/L 32 - 126 U/L [facility] ALT [Catalytic activity/Vol] 52 U/L 10 - 52 U/L [facility] Anion gap [Moles/Vol] 12 mmol/L 7 - 17 mmol/L [facility] AST [Catalytic activity/Vol] 30 U/L 10 - 39 U/L [facility] Bilirubin [Mass/Vol] 0.4 mg/dL NINF - 1.5 mg/dL [facility] Calcium [Mass/Vol] 8.9 mg/dL 8.6 - 10. 5 mg/dL [facility] Chloride [Moles/Vol] 104 mmol/L 98 - 10 8 mmol/L [facility] CO2 [Moles/Vol] 23 mmol/L 21 - 31 mmol/L [facility] Creatinine [Mass/Vol] 0.73 mg/dL 0.70 - 1.30 mg/dL [facility] eGFR, CKD-EPI, Male - PINF [facility] Comment on above: Reported eGFR is bas ed on the CKD-EPI 2020 equation using creatinine, age, and sex. Glucose [Mass/Vol] 206 mg/dL High 70 - 179 mg/dL [facility] Interpretation and review of laboratory results Abnormal [facility] Osmolality Calc [Osmolality] 290 [facility] Potassium [Moles/Vol] 4.1 mmol/L 3.5 - 5.0 mmol/L [facility] Protein [Mass/Vol] 7.5 g/dL 6.4 - 8.3 g/dL [facility] Sodium [Moles/Vol] 135 mmol/L 135 - 145 mmol/L [facility] Urea nitrogen [Mass/Vol] 12 mg/dL 7 - 25 mg/dL [facility] Urea nitrogen/Creatinine [Mass ratio] 16 mg/mg [facility] Albumin [Mass/Vol] 4.2 g/dL Normal 3.5-5.0 [facility] Comment on above: Performed By: #### L CATHERINE EWING #### [facility] (DEFAULT) [address] [place] [address] ALP [Catalytic activity/Vol] 111 U/L Normal 32-126 [facility] Comment on above: Performed By: #### L CATHERINE EWING #### [facility] (DEFAULT) [address] [place] [address] ALT [Catalytic activity/Vol] 52 U/L Normal 10-52 [facility] Comment on above: Performed By: #### L DO, CMPN #### [facility] (DEFAULT) [address] [place] [address] Anion gap [Moles/Vol] 12 mmol/L Normal 7-17 [facility] Comment on above: Performed By: #### L DO, CMPN #### [facility] (DEFAULT) [address] [place] [address] AST [Catalytic activity/Vol] 30 U/L Normal 10-39 [facility] Comment on above: Performed By: #### L DO, CMPN #### [facility] (DEFAULT) [address] [place] [address] Bilirubin [Mass/Vol] 0.4 mg/dL Normal <1.5 [facility] Comment on above: Performed By: #### L DO, CMPN #### [facility] (DEFAULT) [address] [place] [address] Calcium [Mass/Vol] 8.9 mg/dL Normal 8.6-10.5 [facility] Comment on above: Performed By: #### L DO, CMPN #### [facility] (DEFAULT) [address] [place] [address] Chloride [Moles/Vol] 104 mmol/L Normal 98-108 [facility] Comment on above: Performed By: #### L DO, CMPN #### [facility] (DEFAULT) [address] [place] [address] CO2 [Moles/Vol] 23 mmol/L Normal 21-31 [facility] Comment on above: Performed By: #### L DO, CMPN #### [facility] (DEFAULT) [address] [place] [address]86 Creatinine [Mass/Vol] 0.73 mg/dL Normal 0.70-1.30 [facility] Comment on above: Performed By: #### L DO, CMPN #### [facility] (DEFAULT) [address] [place] [address] eGFR, CKD-EPI, Male > Normal >=60 [facility] Comment on above: Result Comment: Repo rted eGFR is based on the CKD-EPI 2020 equation using creatinine, age, and sex. Performed By: #### L DO, CMPN #### [facility] (DEFAULT) [address] [place] [address] Glucose [Mass/Vol] 206 mg/dL High Nonfastin -179 mg/dL; Fastin-99 [facility] Comment on above: Performed By: #### L DO, CMPN #### [facility] (DEFAULT) [address] [place] [address] Osmolality [Osmolality] 290 mosm/kg Normal 278-305 [facility] Comment on above: Performed By: #### L DO, CMPN #### [facility] (DEFAULT) [address] [place] [address] Potassium [Moles/Vol] 4.1 mmol/L Normal 3.5-5.0 [facility] Comment on above: Performed By: #### L DO, CMPN #### [facility] (DEFAULT) [address] [place] [address] Protein [Mass/Vol] 7.5 g/dL Normal 6.4-8.3 [facility] Comment on above: Performed By: #### L DO, CMPN #### [facility] (DEFAULT) [address] [place] [address] Sodium [Moles/Vol] 135 mmol/L Normal 135-145 [facility] Comment on above: Performed By: #### L DO, CMPN #### [facility] (DEFAULT) [address] [place] [address] Urea nitrogen [Mass/Vol] 12 mg/dL Normal 7-25 [facility] Comment on above: Performed By: #### L DO CMPN #### [facility] (DEFAULT) [address] [place] [address] Urea nitrogen/Creatinine [Mass ratio] 16 mg/mg Normal [facility] Comment on above: Performed By: #### L DO CMPN #### [facility] (DEFAULT) [address] [place] [address] LACTATE DEHYDROGENASEon - Interpretation and review of laboratory results Normal [facility] LDH Lactate to pyruvate reaction [Catalytic activity/Vol] 111 U/L 100 - 190 U/L [facility] LD Total 111 U/L Normal 100-190 [facility] Comment on above: Performed By: #### L DO CMPN #### [facility] (DEFAULT) [address] [place] [address] No Panel Informationon 01-16 [facility] URINE PROTEIN/CREA RATIO, RA NDOMon 01-16-2025 Creatinine (24H U) [Mass/Vol] 137.79 mg/dL [facility] Protein Unsp time (U) [Mass/Vol] 12 mg/dL [facility] Protein/Creatinine (U) [Mass ratio] 0.087 mg/mg [facility] Creatinine (U) [Mass/Vol] 137.79 mg/dL Normal [facility] Comment on above: Performed By: #### L AB980, A1CB #### [facility] (DEFAULT) [address] [place] [address] Prot/Creat Ratio 0.087 mg/mg Normal [facility] Comment on above: Performed By: #### L AB980, A1CB #### [facility] (DEFAULT) [address] [place] [address] Protein Ql (U) 12 mg/dL Normal [facility] Comment on above: Performed By: #### L AB980, A1CB #### [facility] (DEFAULT) [address] [address] Cerv Spine 2 or 3 Viewson Cerv Spine 2 or 3 Views [facility] Imaging Services [address] [place] [address] Cerv Spine 2 or 3 Views MR#: [id number] Acct: [id number] Name: JAIRO ADKINS JrLuis Armando Rep #: [id number] : 1980 M 44 From: Dona Rodriguez MD PCP: Dr. Katia Belle MD Status: REG ER Study: Cerv Spine 2 or 3 Views Date of Exam: 11/30/24 Exam# [id number] Ordering Dr: Jo Dumont DO PROCEDURE: CERV [...] Katia Belle MD; Dr. Jo Dumont DO Bellows Assembler: Signed Normal [facility] Emergency Department Summary on 11-30-2024 Emergency Department Summary [facility] Medical Records Department [address] [place] [address] Emergency Department Summary 11/30/24 MR#: [id number] Acct: [id number] Name: JAIRO ADKINS JrLuis Armando Rep #: [id number] : 1980 44 From: Jo Dumont DO PCP: Dr. Katia Belle MD Status:DEP [...] been ambulatory. He has history of TTP. [facility] Medical History Vision problems History of ulcer disease Hearing problem History of blood transfusion Back problem Acute arthritis Seasonal allergies Substance abuse Anxiety Depression Smoker Migraines Diabetes TTP (thrombotic thrombocytopenic purpura) Home Medications ???Medication ???Instructions ???Recorded ???Last Taken ???Type flash glucose scanning reader #1 ea 02/28/24 Unknown Rx (FreeStyle Roxi 2 [place]) flash glucose sensor (FreeStyle #3 ea 07/30/24 Unknown Rx Roxi 2 Sensor kit) blood-glucose meter,continuous #1 ea 09/11/24 Unknown Rx (FreeStyle Roxi 3 [place]) blood-glucose sensor (FreeStyle #1 ea 09/19/24 Unknown [...] tab PO BID 10 days #20 tabs 02/11/09 Unknown Rx mg-trimethoprim 160 mg tablet (Bactrim [...] Denies headache( (more content not included)... Normal [facility] Lumbar Spine 2 or 3 Viewson 11-30-2024 Lumbar Spine 2 or 3 Views [facility] Imaging Services [address] [place], [place] [address] Lumbar Spine 2 or 3 Views MR#: [id number] Acct: [id number] Name: JAIRO ADKINS Jr. Rep #: [id number] : 1980 M 44 From: Dona Rodriguez MD PCP: Dr. Katia Belle MD Status: REG ER Study: Lumbar Spine 2 or 3 Views Date of Exam: Exam# [id number] Ordering Dr: Jo Dumont DO PROCEDURE: LUMBAR [...] Katia Belle MD; Dr. Jo Dumont DO Bellows Assembler: Signed Normal [facility] Wound Cultureon 11-20-2024 WC Susceptibility not normally performed on this organism. Wound Culture Wound Culture Wound Culture GPR-@SET UP ID Sal hernandez Amount Growth 1+ Normal [facility] Comment on above: Performed By: #### M 100.2000, M100.3000 ####[facility] [address] [place], [address] Gram Stainon 11-17-2024 GS Gram Stain 1+ Gram positive cocci 4+ White Blood Cells 2+ Gram variable elio No Epithelial cells Normal [facility] Comment on above: Performed By: #### M 100.2000, M100.3000 ####[facility] [address] [place], [address] Emergency Department Summary on 11-16-2024 Emergency Department Summary [facility] Medical Records Department [address] [place] [address] Emergency Department Summary 11/16/24 MR#: [id number] Acct: [id number] Name: JAIRO ADKINS Jr. Rep #: [id number] : 1980 44 From: Ivon Garcia DO [...] He has had these in the past. [facility] Medical History Vision problems History of ulcer disease Hearing problem History of blood transfusion Back problem Acute arthritis Seasonal allergies Substance abuse Anxiety Depression Smoker Migraines Diabetes TTP (thrombotic thrombocytopenic purpura) Home Medications ???Medication ???Instructions ???Recorded ???Last Taken ???Type flash glucose scanning reader #1 ea 02/28/24 Unknown Rx (FreeStyle Roxi 2 [place]) flash glucose sensor (FreeStyle #3 ea 07/30/24 Unknown Rx Roxi 2 Sensor kit) blood-glucose meter,continuous #1 ea 09/11/24 Unknown Rx (FreeStyle Roxi 3 [place]) blood-glucose sensor (FreeStyle #1 ea 09/19/24 Unknown [...] tab PO BID 10 days #20 tabs 11/09 Unknown Rx mg-trimethoprim 160 mg tablet [...] motion of (more content not included)... Normal [facility] Internal Medicine Office Vis iton 10-28-2024 Internal Medicine Office Visit [facility] [address] [place] [address] [place] [address] OFFICE VISIT Date of Service: 10/29/24 MR#: [id number] Acct: [id number] Name: JAIRO ADKINS JrLuis Armando Rep #: [id number] : 1980 Provider: Dr. Katia smith MD Age/Sex: 44/M Location: [facility] Status: Signed Intake Vital Signs 09/04/24 17:42 [...] 3 M FU Chief Complaint: bs concerns Waxer Required: No Accompanied by: Self Is patient [...] ea 02/28/24 10/29/24 Rx (FreeStyle Roxi 2 [place]) flash glucose sensor (FreeStyle #3 ea 07/30/24 10/29/24 Rx Roxi 2 Sensor kit) pen needle, diabetic 31 gauge x #100 ea 08/23/24 10/29/24 Rx 5/16 (Pen Needle) blood-glucose meter,continuous #1 ea 09/11/24 10/29/24 Rx (FreeStyle Roxi 3 [place]) blood-glucose sensor (FreeStyle #1 ea 09/19/24 10/29/24 [...] or conc (more content not included)... Normal [facility] [id number] ACTIVITYon 09-26-20 24 [id number] Activity >100 Normal >=40 [facility] Comment on above: Result Comment: FRAN TS13 activity is measured by chromogenic ELLIE (enzyme-linked immunosorbent assay). Severe deficiencies of YERDXR96 (activity <10%) appear to be a relatively [...] Some literature also suggests serial measurement of EMJTYM29 activity levels may assist clinicians in monitoring TTP patients and provide prognostic value in prediction of TTP relapses. When interpreting the serological results, the history of the sample has to be taken into account. This test was developed and its performance characteristics determined by [facility] at [facility]. It has not been cleared or approved by the FDA. The laboratory is regulated under CLIA as qualified to perform high-complexity testing. This test is used for clinical purposes. It should not be regarded as investigational or for research. Performed By: #### L DO, [facility] #### [facility] (DEFAULT) [address] [address] [id number] Inhibitor Not Indicated Normal [facility] Comment on above: Performed By: #### L DO, CMPN #### [facility] (DEFAULT) [address] [address] [id number] IGG ABon 09-26-2024 ZBAFMF96 IgG Antibody <6.0 Normal <=12.0 [facility] Comment on above: Result Comment: Anti -SHGURE20 IgG antibodies concentration is determined by ELLIE (enzyme-linked immunosorbent assay). This test was developed and its performance characteristics determined by the [facility] at [facility]. It has not been cleared [...] with high concentrations of autoantibodies other than anti-TTVGTG42 may result in weak positive or borderline results. Elevated bilirubin levels may cause a negative interference with anti-KTWERO22 IgG antibodies test results. Performed By: #### L , CATHERINE #### [facility] (DEFAULT) [address] [place] [address] CBC AND ELECTRONIC DIFFon Basophils (Bld) [#/Vol] 0.06 10*3/uL 0.00 - 0.09 K/uL [facility] Basophils/100 WBC (Bld) 0.7 % [facility] Differential cell count method Nom (Bld) Electronic Differential [facility] Eosinophils (Bld) [#/Vol] 0.55 10*3/uL High 0.00 - 0.48 K/uL [facility] Eosinophils/100 WBC (Bld) 6.7 % [facility] Erythrocyte distribution width (RBC) [Ratio] 13.4 % 10.9 - 14.3 % [facility] Hematocrit (Bld) [Volume fraction] 46.5 % 39.6 - 48.8 % [facility] Hemoglobin (Bld) [Mass/Vol] 15.8 g/dL 13.4 - 16.8 g/dL [facility] Immature granulocytes (Bld) [#/Vol] 0.07 10*3/uL NINF - 0.07 K/uL [facility] Immature granulocytes/100 WBC (Bld) 0.8 % [facility] Interpretation and review of laboratory results Abnormal [facility] Lymphocytes (Bld) [#/Vol] 2.20 10*3/uL 0.83 - 3.57 K/uL [facility] Lymphocytes/100 WBC (Bld) 26.6 % [facility] MCH (RBC) [Entitic mass] 30.2 pg 26.1 - 33.3 pg [facility] MCHC (RBC) [Mass/Vol] 34.0 g/dL 31.9 - 36.5 g/dL [facility] MCV (RBC) [Entitic vol] 88.9 fL 79.0 - 94.5 fL [facility] Monocytes (Bld) [#/Vol] 0.78 10*3/uL 0.24 - 0.93 K/uL [facility] Monocytes/100 WBC (Bld) 9.4 % [facility] Neutrophils (Bld) [#/Vol] 4.61 10*3/uL 1.57 - 6.19 K/uL [facility] Nucleated RBC/100 WBC (Bld) [Ratio] 0.0 % NINF [facility] Platelet mean volume (Bld) [Entitic vol] 10.0 fL 8.7 - 12.3 fL [facility] Platelets (Bld) [#/Vol] 240 10*3/uL 146 - 337 K/uL [facility] RBC (Bld) [#/Vol] 5.23 10*6/uL [facility] Segmented neutrophils/100 WBC (Bld) 55.8 % [facility] WBC (Bld) [#/Vol] 8.27 10*3/uL 3.73 - 10.10 K/uL [facility] Basophils (Bld) [#/Vol] 0.06 10*3/uL Normal 0.00-0.09 [facility] Comment on above: Performed By: #### L AB980, A1CB #### [facility] (DEFAULT) [address] [place] [address] Basophils/100 WBC (Bld) 0.7 % Normal [facility] Comment on above: Performed By: #### L AB980, A1CB #### [facility] (DEFAULT) [address] [place] [address] DIFF STATUS Electronic Differential Normal [facility] Comment on above: Performed By: #### L AB980, A1CB #### [facility] (DEFAULT) [address] [place] [address] Eosinophils (Bld) [#/Vol] 0.55 10*3/uL High 0.00-0.48 [facility] Comment on above: Performed By: #### L AB980, A1CB #### [facility] (DEFAULT) [address] [address] Eosinophils/100 WBC (Bld) 6.7 % Normal [facility] Comment on above: Performed By: #### L AB980, A1CB #### [facility] (DEFAULT) [address] [address] Hematocrit (Bld) [Volume fraction] 46.5 % Normal 39.6-48.8 [facility] Comment on above: Performed By: #### L AB980, A1CB #### [facility] (DEFAULT) [address] [address] Hemoglobin (Bld) [Mass/Vol] 15.8 g/dL Normal 13.4-16.8 [facility] Comment on above: Performed By: #### L AB980, A1CB #### [facility] (DEFAULT) [address] [address] Immature Grans % 0.8 % Normal [facility] Comment on above: Performed By: #### L AB980, A1CB #### [facility] (DEFAULT) [address] [address] Immature Grans Absolute 0.07 K/uL Normal <=0.07 [facility] Comment on above: Performed By: #### L AB980, A1CB #### [facility] (DEFAULT) [address] [address] Lymphocytes (Bld) [#/Vol] 2.20 10*3/uL Normal 0.83-3.57 [facility] Comment on above: Performed By: #### L AB980, A1CB #### [facility] (DEFAULT) [address] [address] Lymphocytes/100 WBC (Bld) 26.6 % Normal [facility] Comment on above: Performed By: #### L AB980, A1CB #### [facility] (DEFAULT) [address] [place] [address] MCV (RBC) [Entitic vol] 88.9 fL Normal 79.0-94.5 [facility] Comment on above: Performed By: #### L AB980, A1CB #### [facility] (DEFAULT) [address] [place] [address] 11531 Mean Cell Hgb 30.2 pg Normal 26.1-33.3 [facility] Comment on above: Performed By: #### L AB980, A1CB #### [facility] (DEFAULT) [address] [place] [address] Mean Cell Hgb Conc 34.0 g/dL Normal 31.9-36.5 [facility] Comment on above: Performed By: #### L AB980, A1CB #### [facility] (DEFAULT) [address] [place] [address] Monocytes (Bld) [#/Vol] 0.78 10*3/uL Normal 0.24-0.93 [facility] Comment on above: Performed By: #### L AB980, A1CB #### [facility] (DEFAULT) [address] [place] [address]209 Monocytes/100 WBC (Bld) 9.4 % Normal [facility] Comment on above: Performed By: #### L AB980, A1CB #### [facility] (DEFAULT) [address] [place] [address] Nucleated RBC 0.0 /100 WBC Normal <=0.2 [facility] Comment on above: Performed By: #### L AB980, A1CB #### [facility] (DEFAULT) [address] [place] [address]68 Platelet mean volume (Bld) [Entitic vol] 10.0 fL Normal 8.7-12.3 [facility] Comment on above: Performed By: #### L AB980, A1CB #### [facility] (DEFAULT) [address] [place] [address] Platelets (Bld) [#/Vol] 240 10*3/uL Normal 146-337 [facility] Comment on above: Performed By: #### L AB980, A1CB #### [facility] (DEFAULT) [address] [place] [address]63 RBC (Bld) [#/Vol] 5.23 10*6/uL Normal 4.38-5.83 [facility] Comment on above: Performed By: #### L AB980, A1CB #### [facility] (DEFAULT) [address] [place] [address] RBC Distribution 13.4 % Normal 10.9-14.[address] [facility] Comment on above: Performed By: #### L AB980, A1CB #### [facility] (DEFAULT) [address] [place] [address] Segs + Bands Auto 55.8 % Normal [facility] Comment on above: Performed By: #### L AB980, A1CB #### [facility] (DEFAULT) [address] [place] [address] Segs + Bands,Absolute Auto 4.61 K/uL Normal 1.57-6.19 [facility] Comment on above: Performed By: #### L AB980, A1CB #### [facility] (DEFAULT) [address] [place] [address]307 WBC (Bld) [#/Vol] 8.27 10*3/uL Normal 3.73-10.10 [facility] Comment on above: Performed By: #### L AB980, A1CB #### [facility] (DEFAULT) [address] [place] [address] COMPREHENSIVE METABOLIC PANE Adán 09-26-2024 Albumin [Mass/Vol] 4.1 g/dL 3.5 - 5.0 g/dL [facility] ALP [Catalytic activity/Vol] 150 U/L High 32 - 126 U/L [facility] ALT [Catalytic activity/Vol] 50 U/L 10 - 52 U/L [facility] Anion gap [Moles/Vol] 12 mmol/L 7 - 17 mmol/L [facility] AST [Catalytic activity/Vol] 25 U/L 10 - 39 U/L [facility] Bilirubin [Mass/Vol] 0.4 mg/dL NINF - 1.5 mg/dL [facility] Calcium [Mass/Vol] 9.4 mg/dL 8.6 - 10. 5 mg/dL [facility] Chloride [Moles/Vol] 99 mmol/L 98 - 10 8 mmol/L [facility] CO2 [Moles/Vol] 24 mmol/L 21 - 31 mmol/L [facility] Creatinine [Mass/Vol] 0.69 mg/dL Low 0.70 - 1.30 mg/dL [facility] eGFR, CKD-EPI, Male - PINF [facility] Comment on above: Reported eGFR is bas ed on the CKD-EPI 2020 equation using creatinine, age, and sex. Glucose [Mass/Vol] 376 mg/dL High 70 - 99 mg/dL [facility] Interpretation and review of laboratory results Abnormal [facility] Osmolality Calc [Osmolality] 293 [facility] Potassium [Moles/Vol] 4.1 mmol/L 3.5 - 5.0 mmol/L [facility] Protein [Mass/Vol] 7.3 g/dL 6.4 - 8.3 g/dL [facility] Sodium [Moles/Vol] 131 mmol/L Low 135 - 145 mmol/L [facility] Urea nitrogen [Mass/Vol] 11 mg/dL 7 - 25 mg/dL [facility] Urea nitrogen/Creatinine [Mass ratio] 16 mg/mg [facility] Albumin [Mass/Vol] 4.1 g/dL Normal 3.5-5.0 [facility] Comment on above: Performed By: #### L DO, CMPN #### [facility] (DEFAULT) [address] [place] [address] ALP [Catalytic activity/Vol] 150 U/L High 32-126 [facility] Comment on above: Performed By: #### L DO, CMPN #### [facility] (DEFAULT) [address] [place] [address]21 ALT [Catalytic activity/Vol] 50 U/L Normal 10-52 [facility] Comment on above: Performed By: #### L DO, CMPN #### [facility] (DEFAULT) [address] [place] [address]65 Anion gap [Moles/Vol] 12 mmol/L Normal 7-17 [facility] Comment on above: Performed By: #### L DO, CMPN #### [facility] (DEFAULT) [address] [place] [address]386 AST [Catalytic activity/Vol] 25 U/L Normal 10-39 [facility] Comment on above: Performed By: #### L DO, CMPN #### [facility] (DEFAULT) [address] [place] [address] 12644 Bilirubin [Mass/Vol] 0.4 mg/dL Normal <1.5 [facility] Comment on above: Performed By: #### L DO, CMPN #### [facility] (DEFAULT) [address] [place] [address]843 Calcium [Mass/Vol] 9.4 mg/dL Normal 8.6-10.5 [facility] Comment on above: Performed By: #### L DO, CMPN #### [facility] (DEFAULT) [address] [place] [address] 27097 Chloride [Moles/Vol] 99 mmol/L Normal 98-108 [facility] Comment on above: Performed By: #### L DO, CMPN #### [facility] (DEFAULT) [address] [place] [address]72 CO2 [Moles/Vol] 24 mmol/L Normal 21-31 [facility] Comment on above: Performed By: #### L DO, CMPN #### [facility] (DEFAULT) [address] [place] [address] 96090 Creatinine [Mass/Vol] 0.69 mg/dL Low 0.70-1.30 [facility] Comment on above: Performed By: #### L DO, CMPN #### [facility] (DEFAULT) [address] [place] [address]241 eGFR, CKD-EPI, Male > Normal >=60 [facility] Comment on above: Result Comment: Repo rted eGFR is based on the CKD-EPI 2020 equation using creatinine, age, and sex. Performed By: #### L DO, CMPN #### [facility] (DEFAULT) [address] [place] [address] 17452 Glucose [Mass/Vol] 376 mg/dL High 70-99 [facility] Comment on above: Performed By: #### L DO, CMPN #### [facility] (DEFAULT) [address] [place] [address] Osmolality [Osmolality] 293 mosm/kg Normal 278-305 [facility] Comment on above: Performed By: #### L DO, CMPN #### [facility] (DEFAULT) [address] [place] [address]752 Potassium [Moles/Vol] 4.1 mmol/L Normal 3.5-5.0 [facility] Comment on above: Performed By: #### L DO, CMPN #### [facility] (DEFAULT) [address] [place] [address] 21884 Protein [Mass/Vol] 7.3 g/dL Normal 6.4-8.3 [facility] Comment on above: Performed By: #### L DO, CMPN #### [facility] (DEFAULT) [address] [place] [address] 97636 Sodium [Moles/Vol] 131 mmol/L Low 135-145 [facility] Comment on above: Performed By: #### L DO, CMPN #### [facility] (DEFAULT) [address] [place] [address] 73977 Urea nitrogen [Mass/Vol] 11 mg/dL Normal 7-25 [facility] Comment on above: Performed By: #### L DO, CMPN #### [facility] (DEFAULT) [address] [place] [address] 33056 Urea nitrogen/Creatinine [Mass ratio] 16 mg/mg Normal [facility] Comment on above: Performed By: #### L DO, CMPN #### [facility] (DEFAULT) [address] [place] [address] 35950 HEMOGLOBIN A1Con 09-26-2024 Average glucose Estimated from glycated hemoglobin (Bld) [Mass/Vol] 255 mg/dL [facility] HbA1c (Bld) [Mass fraction] 10.5 % High 4.7 - 5.6 % [facility] Interpretation and review of laboratory results Abnormal [facility] Glucose [Mass/Vol] 255 mg/dL Normal [facility] Comment on above: Performed By: #### L AB980, A1CB #### [facility] (DEFAULT) [address] [place] [address] 33713 Hemoglobin A1C HPLC 10.5 % High 4.7-5.6 [facility] Comment on above: Performed By: #### L AB980, A1CB #### [facility] (DEFAULT) [address] [place] [address] 18137 LACTATE DEHYDROGENASEon 09-15 Interpretation and review of laboratory results Normal [facility] LDH Lactate to pyruvate reaction [Catalytic activity/Vol] 148 U/L 100 - 190 U/L [facility] Comment on above: Specimen slightly he molyzed. LDH results may be falsely elevated. Interpret within the clinical context. LD Total 148 U/L Normal 100-190 [facility] Comment on above: Result Comment: Spec imen slightly hemolyzed. LDH results may be falsely elevated. Interpret within the clinical context. Performed By: #### L DO, CMPN #### [facility] (DEFAULT) [address] [address] No Panel Informationon 09-26 [facility] URINE PROTEIN/CREA RATIO, RA Frank 09-26-2024 Creatinine (24H U) [Mass/Vol] 66.63 mg/dL [facility] Protein Unsp time (U) [Mass/Vol] 9 mg/dL [facility] Protein/Creatinine (U) [Mass ratio] 0.135 mg/[facility] Creatinine (U) [Mass/Vol] 66.63 mg/dL Normal [facility] Comment on above: Performed By: #### L AB980, A1CB #### [facility] (DEFAULT) [address] [address] Prot/Creat Ratio 0.135 mg/mg Normal [facility] Comment on above: Performed By: #### L AB980, A1CB #### [facility] (DEFAULT) [address] [address] Protein Ql (U) 9 mg/dL Normal [facility] Comment on above: Performed By: #### L AB980, A1CB #### [facility] (DEFAULT) [address] [place] [address] Emergency Department Summary on 09-04-2024 Emergency Department Summary [facility] Medical Records Department [address] [place] [address] Emergency Department Summary 09/04/24 MR#: [id number] Acct: [id number] Name: JAIRO ADKINS . Rep #: [id number] : 1980 44 From: Eliecer Cortez DO [...] Allergic/Immunologic ED: Denies mouth swelling or urticaria [facility] Medical History Vision problems History of ulcer disease Hearing problem History of blood transfusion Back problem Acute arthritis Seasonal allergies Substance abuse Anxiety Depression Smoker Migraines Diabetes TTP (thrombotic thrombocytopenic purpura) Home Medications ???Medication ???Instructions ???Recorded ???Last Taken ???Type flash glucose scanning reader #1 ea 02/28/24 Unknown Rx (FreeStyle Roxi 2 [place]) hydrocodone-acetaminoph en 5-325mg 1 tab PO Q6H [...] gauge x #100 ea 08/23/24 Unknown Rx 5/16 (Pen Needle) cephalexin 500 [...] members: significant other, children and other details[place] house current occupational status: unemployed Smoking [...] Vital Signs: (more content not included)... Normal [facility] Comprehensive Metabolic Prof janette 07-30-2024 Albumin [Mass/Vol] 3.8 g/dL Normal 3.2-5.0 [facility] Comment on above: Performed By: #### L 500.4050 #### [facility] [address] [place], [address] Albumin/Globulin [Mass ratio] 0.8 {ratio} Low 0.9-2.4 [facility] Comment on above: Performed By: #### L [id number] #### [facility] [address] [place], [address] ALK P 200 U/L High 45-117 [facility] Comment on above: Performed By: #### L [id number] #### [facility] [address] [place], [address] ALT [Catalytic activity/Vol] 60 U/L Normal 16-61 [facility] Comment on above: Performed By: #### L [id number] #### [facility] [address] [place], [address] AST [Catalytic activity/Vol] 23 U/L Normal 15-37 [facility] Comment on above: Result Comment: Slig ht Hemolysis, Result may be falsely increased. Performed By: #### L [id number] #### [facility] [address] [place], [address] Bilirubin [Mass/Vol] 0.50 mg/dL Normal 0.20-1.00 [facility] Comment on above: Result Comment: For patients on eltrombopag therapy, use of Dimension [place] TBIL is not recommended. Performed By: #### L [id number] #### [facility] [address] [place], [address] BUN/CRE 15.8 RATIO Normal 10-20 [facility] Comment on above: Performed By: #### L [id number] #### [facility] [address] [place], [address] CA,Total 9.6 mg/dL Normal 8.5-10.1 [facility] Comment on above: Performed By: #### L [id number] #### [facility] [address] [place], [address] Chloride [Moles/Vol] 97 mmol/L Low 98-107 [facility] Comment on above: Performed By: #### L [id number] #### [facility] [address] [place], [address] CO2 [Moles/Vol] 25.0 mmol/L Normal 21.0-32.0 [facility] Comment on above: Performed By: #### L [id number] #### [facility] [address] [place], [address] Creatinine [Mass/Vol] 0.95 mg/dL Normal 0.70-1.[address] [facility] Comment on above: Result Comment: The validity of the calculated GFR GFRAA in patients over 70 years has not been determined. Clinical correlation is essential. Performed By: #### L [id number] #### [facility] [address] [place], [address] EST GFR - AA 111 mL/min Normal >60 [facility] Comment on above: Result Comment: Afri can Faroese GFR Calc Performed By: #### L [id number] #### [facility] [address] [place], [address] GAP 8 Normal 5-15 [facility] Comment on above: Performed By: #### L [id number] #### [facility] [address] [place], [address] GFR/1.73 sq M.predicted among non-blacks MDRD (S/P/Bld) [Vol rate/Area] 92 mL/min/{1.73_m2} Normal >60 [facility] Comment on above: Result Comment: Non- GFR Calc Performed By: #### L [id number] #### [facility] [address] [place], [address] Globulin (S) [Mass/Vol] 4.5 g/dL High 2.2-4.2 [facility] Comment on above: Performed By: #### L [id number] #### [facility] [address] [place], [address] Glucose [Mass/Vol] 579 mg/dL Invalid Interpretation Code 74-106 [facility] Comment on above: Result Comment: Crit ical Result(s) Called at: 12:59:22 07/30/2024 by: Fidelia Luna to Marie Guerin. Results read back by same. Glucose result greater than or equal to 200 mg/dL suggests DIABETES MELLITUS per A.D.A. criteria. Performed By: #### L [id number] #### [facility] [address] [place], [address] Potassium [Moles/Vol] 4.6 mmol/L Normal 3.5-5.[address] [facility] Comment on above: Result Comment: Slig ht Hemolysis, Result may be falsely increased. Performed By: #### L [id number] #### [facility] [address] [place], [address] Sodium [Moles/Vol] 130 mmol/L Low 136-145 [facility] Comment on above: Performed By: #### L 500.4050 #### [facility] [address] [place], [address] T PROT 8.3 g/dL High 6.4-8.2 [facility] Comment on above: Performed By: #### L 500.4050 #### [facility] [address] [place], [address] Urea nitrogen [Mass/Vol] 15 mg/dL Normal 7-18 [facility] Comment on above: Performed By: #### L [id number] #### [facility] [address] [place], [address] Internal Medicine Office Vis gus 07-29-2024 Internal Medicine Office Visit [facility] [address] [place] [address] OFFICE VISIT Date of Service: 07/30/24 MR#: [id number] Acct: [id number] Name: JAIRO ADKINS Jr. Rep #: [id number] : 1980 Provider: Dr. Katia smith MD Age/Sex: 44/M Location: [facility] Status: Signed Intake Vital Signs 05/21/24 18:01 [...] out of whack Chief Complaint: bs concerns Waxer Required: No Accompanied by: Self Is patient [...] ea 02/28/24 07/30/24 Rx (FreeStyle Roxi 2 [place]) pen needle, diabetic 29 gauge x #100 [...] active. The patient reports he was in [facility] weeks in June. He reports [...] home. He reports prior to going to [facility], they were in the 120-200 range. He [...] at home. (more content not included)... Normal [facility] UPPER EXTREMITY INJECTION: r ight supraspinatus tendon [...] fashion. The patient was prepped with Chloraprep. [facility] Radiology Study observation (narrative) [facility] US Unspecified body regionOr dered By: Unassigned Pacs on 05-13-2024 [facility] Work Phone: US Unspecified body regionon 05-13-2024 Radiology Study observation (narrative) [facility] ED Nursing Noteon 03-17-2024 ED Nursing Note Patient arrived with steady gait to room 2. Patient complains of boil on left buttocks x 4 days. Patient denies any drainage, nausea, vomiting, fever or chills. Pain 10/10. Normal [facility] ED Provider Noteon ED Provider Note [...] hoping it would go away but when wliy-qvi-onbjnal medications did not work he came to [...] his s (more content not included)... Normal [facility] SHS BETA-HYDROXYBUTYRATE, SERUMo n 02-25-2024 Beta hydroxybutyrate [Moles/Vol] 0.14 mmol/L NINF - 0.27 mmol/L [facility] Interpretation and review of laboratory results Normal [facility] This test has not been cleared or approved by the FDA. The laboratory is regulated under CLIA as qualified to perform high-complexity testing. This test is used for clinical purposes. It should not be regarded as investigational or for research. [facility] CALCIUMon 02-25-2024 Calcium [Mass/Vol] 9.9 mg/dL 8.6 - 10. 5 mg/dL [facility] CBC AND ELECTRONIC DIFFon Basophils (Bld) [#/Vol] 0.10 10*3/uL High 0.00 - 0.09 K/uL [facility] Basophils/100 WBC (Bld) 0.9 % [facility] Differential cell count method Nom (Bld) Electronic Differential [facility] Eosinophils (Bld) [#/Vol] 0.67 10*3/uL High 0.00 - 0.48 K/uL [facility] Eosinophils/100 WBC (Bld) 5.8 % [facility] Erythrocyte distribution width (RBC) [Ratio] 12.9 % 10.9 - 14.3 % [facility] Hematocrit (Bld) [Volume fraction] 48.6 % 39.6 - 48.8 % [facility] Hemoglobin (Bld) [Mass/Vol] 17.1 g/dL High 13.4 - 16.8 g/dL [facility] Immature granulocytes (Bld) [#/Vol] 0.04 10*3/uL NINF - 0.07 K/uL [facility] Immature granulocytes/100 WBC (Bld) 0.3 % [facility] Interpretation and review of laboratory results Abnormal [facility] Lymphocytes (Bld) [#/Vol] 3.38 10*3/uL 0.83 - 3.57 K/uL [facility] Lymphocytes/100 WBC (Bld) 29.1 % [facility] MCH (RBC) [Entitic mass] 30.6 pg 26.1 - 33.3 pg [facility] MCHC (RBC) [Mass/Vol] 35.2 g/dL 31.9 - 36.5 g/dL [facility] MCV (RBC) [Entitic vol] 86.9 fL 79.0 - 94.5 fL [facility] Monocytes (Bld) [#/Vol] 0.93 10*3/uL 0.24 - 0.93 K/uL [facility] Monocytes/100 WBC (Bld) 8.0 % [facility] Neutrophils (Bld) [#/Vol] 6.51 10*3/uL High 1.57 - 6.19 K/uL [facility] Nucleated RBC/100 WBC (Bld) [Ratio] 0.0 % NINF [facility] Platelet mean volume (Bld) [Entitic vol] 10.1 fL 8.7 - 12.3 fL [facility] Platelets (Bld) [#/Vol] 267 10*3/uL 146 - 337 K/uL [facility] RBC (Bld) [#/Vol] 5.59 10*6/uL [facility] Segmented neutrophils/100 WBC (Bld) 55.9 % [facility] WBC (Bld) [#/Vol] 11.63 10*3/uL High 3.73 - 10.10 K/uL [facility] CHEM 7 (LYTES,BUN,CREA,GLUC) Ordered By: Pop Frye on 02-25-2024 Anion gap [Moles/Vol] 12 mmol/L 7 - 17 mmol/L [facility] Chloride [Moles/Vol] 94 mmol/L Low 98 - 10 8 mmol/L [facility] CO2 [Moles/Vol] 27 mmol/L 21 - 31 mmol/L [facility] Creatinine [Mass/Vol] 0.86 mg/dL 0.70 - 1.30 mg/dL [facility] eGFR, CKD-EPI, Male - PINF [facility] Comment on above: Reported eGFR is bas ed on the CKD-EPI 2020 equation using creatinine, age, and sex. Glucose [Mass/Vol] 431 mg/dL Critically high 70 - 9 9 mg/dL [facility] Interpretation and review of laboratory results Abnormal [facility] Osmolality Calc [Osmolality] 296 [facility] Potassium [Moles/Vol] 4.1 mmol/L 3.5 - 5.0 mmol/L [facility] Sodium [Moles/Vol] 129 mmol/L Low 135 - 145 mmol/L [facility] Urea nitrogen [Mass/Vol] 18 mg/dL 7 - 25 mg/dL [facility] Urea nitrogen/Creatinine [Mass ratio] 21 mg/mg [facility] EXTRA MICROon 02-25-2024 [facility] GLUCOSE POCon 02-25-2024 Glucose [Mass/Vol] 337 mg/dL High 70 - 99 mg/dL [facility] Interpretation and review of laboratory results Abnormal [facility] POC Sample Type CAPBL [facility] Test performed at address of the patient encounter. [facility] Glucose [Mass/Vol] 348 mg/dL High 70 - 99 mg/dL [facility] Interpretation and review of laboratory results Abnormal [facility] POC Sample Type CAPBL [facility] Test performed at address of the patient encounter. [facility] Glucose [Mass/Vol] 406 mg/dL Critically high 70 - 9 9 mg/dL [facility] Comment on above: Notified RNread back Interpretation and review of laboratory results Abnormal [facility] POC Sample Type CAPBL [facility] Test performed at address of the patient encounter. [facility] Glucose [Mass/Vol] 438 mg/dL Critically high 70 - 9 9 mg/dL [facility] Comment on above: Notified RNread back Interpretation and review of laboratory results Abnormal [facility] POC Sample Type CAPBL [facility] Test performed at address of the patient encounter. [facility] Glucose [Mass/Vol] 497 mg/dL Critically high 70 - 9 9 mg/dL [facility] Interpretation and review of laboratory results Abnormal [facility] POC Sample Type CAPBL [facility] Test performed at address of the patient encounter. [facility] HEMOGLOBIN A1Con 02-25-2024 Average glucose Estimated from glycated hemoglobin (Bld) [Mass/Vol] 209 mg/dL [facility] HbA1c (Bld) [Mass fraction] 8.9 % High 4.7 - 5.6 % [facility] Interpretation and review of laboratory results Abnormal [facility] MAGNESIUMon 02-25-2024 Magnesium [Mass/Vol] 1.7 mg/dL 1.6 - 2 .6 mg/dL [facility] No Panel Informationon 02-24 [facility] Interpretation and review of laboratory results Normal [facility] PHOSPHATE, INORGANICon 02-24 Phosphate [Mass/Vol] 3.8 mg/dL 2.2 - 4 .6 mg/dL [facility] Portable XR Chest Viewson IMPRESSION: Subtle streaky [...] lung base may represent an infectious/inflammatory process. [facility]iology [facility]narrative) [facility] ViewsOrder ed By: Desmond Phillips on 02-25-2024 [facility] Work Phone: URINALYSIS REFLEX TO CULTURE PERFORMABLEon 02-25-2024 Appearance (U) Clear Clear [facility] Bacteria LM Ql (Urine sed) ABSENT ABSENT [facility] Color (U) Yellow Yellow [facility] Epithelial cells.squamous LM Ql (Urine sed) 0-2/hpf 0-2/hpf, 3-5/hpf = 1+ [facility] Glucose Test strip (U) [Mass/Vol] >=1000 mg/dL Abnormal Negative [facility] Interpretation and review of laboratory results Abnormal [facility] Ketones (U) [Mass/Vol] Negative Negative [facility] Leukocyte esterase Test strip Ql (U) Negative Negative [facility] Nitrite Ql (U) Negative Negative [facility] pH (U) 6.0 [pH] 5.0 - 7.0 [facility] Protein (U) [Mass/Vol] Negative Negative [facility] RBC (U) [#/Vol] Negative Negative [facility] RBC LM.HPF (Urine sed) [#/Area] 0-2 [facility] Specific gravity (U) [Rel density] 1.027 1.001 - 1.035 [facility] Urobilinogen (U) [Mass/Vol] 0.2 E.U./dL 0.2 E.U/dL, 1.0 E.U/dL [facility] WBC LM.HPF (Urine sed) [#/Area] 0 - 5 [facility]OUS BLOOD GAS PLUS LACTAT Alan 02-25-2024 Base excess Calc (Bld) [Moles/Vol] 3.6 mmol/L High -3.0 - 3.0 mmol/L [facility] CO2 (Bld) [Partial pressure] 41 mm[Hg] [facility] HCO3 (Bld) [Moles/Vol] 28 mmol/L 22 - 29 mmol/L [facility] Interpretation and review of laboratory results Abnormal [facility] Lactate [Moles/Vol] 1.1 mmol/L 0.5 - 1. 6 mmol/L [facility] Oxygen (Bld) [Partial pressure] 54 mm[Hg] mm Hg [facility] Comment on above: Venous pO2 is not re commended for the evaluation of oxygen status, clinical correlation is recommended. Oxygen saturation in Blood 89 % High 70 - 80 % [facility] pH (Bld) 7.44 [pH] High 7.32 - 7.43 [facility] Specimen source Nom (Unsp spec) Venous [facility] Absolute lymphocyte countOrd ered By: Desmond Mendoza on 02-23-2024 Lymphocytes Auto (Unsp spec) [#/Vol] 2.61 10*3/uL 0.83-4.51 [facility] Automated lymphocyte count a s percentage of total leukocytesOrdered By: Desmond Mendoza on 02-23-2024 Lymphocytes/100 WBC Auto (Unsp spec) 28.9 % 19-41 [facility] Basophil percentageOrdered B y: Desmond Mendoza on 02-23-2024 Basophils/100 WBC (Bld) 0.7 % 0-1 [facility] Chloride [Moles/Vol] 98 mmol/L 98-107 [facility] Eosinophils/100 WBC (Bld) 6.3 % 0-5 [facility] Glucose [Mass/Vol] 676 mg/dL 74-106 [facility] Comment on above: Critical Result(s) C alled at: 05:47:59 02/23/2024 by: Cassie blake. Results read back by same.Glucose result greater than or equal to 200 mg/dLsuggests DIABETES MELLITUS per A.D.A. criteria. Hemoglobin (Bld) [Mass/Vol] 16.1 g/dL 13.0-16.5 [facility] Monocytes/100 WBC (Bld) 9.4 % 0-10 [facility] Neutrophils (Bld) [#/Vol] 4.9 10*3/uL 2.0-7.7 [facility] Neutrophils/100 WBC (Bld) 54.4 % 47-70 [facility] Potassium [Moles/Vol] 4.2 mmol/L 3.5-5.[address] [facility] Comment on above: Slight Hemolysis, Re sult may be falsely increased. Sodium [Moles/Vol] 131 mmol/L 136-145 [facility] WBC (Bld) [#/Vol] 9.0 10*3/uL 4.4-11.0 [facility] Basophil percentage 0 SEEN /hpf 0-5 [facility] Basophil percentageOrdered B y: Mainor Coleman on 02-23-2024 Cholesterol [Mass/Vol] 194 mg/dL <200 [facility] Comment on above: <200 mg/dL Desirable 200-240 mg/dL Borderline >240 mg/dL High Risk Triglyceride [Mass/Vol] 425 mg/dL <199 [facility] Comment on above: The drugs N-Acetylcy steine and Metamizole may falsely depress this assay. TRIGLYCERIDE IS GREATER THAN 400 mg/dL. LDL RESULT IS INVALID AND WILL NOT BE REPORTED.Serum Triglycerides Reference Interval Normal <150 mg/dL Borderline high 150 - 199 mg/dL High 200 - 499 mg/dL Very High > or = 500 mg/dL Bilirubin Test strip Ql (U)O rdered By: Desmond Mendoza on 02-23-2024 Bilirubin Ql (U) Negative Negative [facility] Determination of erythrocyte mean corpuscular volume (MCV)Ordered By: Desmond Mendoza on 02-23-2024 MCV (RBC) [Entitic vol] 88.5 fL 80-94 [facility] Erythrocyte distribution wid th ratioOrdered By: Desmond Mendoza on 02-23-2024 Erythrocyte distribution width (RBC) [Ratio] 13.0 % 11.6-14.6 [facility] Erythrocyte distribution wid th standard deviationOrdered By: Desmond Mendoza on 02-23-2024 Erythrocyte distribution width (RBC) [Entitic vol] 42.5 fL 35.1-43.9 [facility] Hematocrit Auto (Bld) [Volum e fraction]Ordered By: Desmond Mendoza on 02-23-2024 Hematocrit (Bld) [Volume fraction] 47.0 % 40-54 [facility] Immature granulocytes/100 WB C Auto (Bld)Ordered By: Desmond Mendoza on 02-23-2024 Immature granulocytes/100 WBC (Bld) 0.300 % 0.0-0.9 [facility] Comment on above: IG% - Immature Granu locytes (promyelocytes, myelocytes and metamyelocytes) > 1% indicates that a LEFT SHIFT is Present. Ketones Test strip Ql (U)Ord ered By: Desmond Mendoza on 02-23-2024 Ketones Ql (U) Negative Negative [facility] Laboratory - Chemistry and C hemistry - challengeOrdered By: Mainor Coleman on 02-23-2024 Cholesterol in HDL [Mass/Vol] 28 mg/dL >40 [facility] Comment on above: The drugs N-Acetylcy steine and Metamizole may falsely depress this assay. Reference Range HDL <40 mg/dL Low HDL Cholesterol HDL >or= 60 mg/dL High HDL Cholesterol Laboratory - Chemistry and C hemistry - challengeOrdered By: Desmond Mendoza on 02-23-2024 CO2 [Moles/Vol] 26.0 mmol/L 21.0-32.0 [facility] Urea nitrogen/Creatinine [Mass ratio] 13.9 mg/mg 10- [facility] Laboratory - Drug toxicology Ordered By: Mainor Coleman on 02-23-2024 Amphetamines Ql (U) Negative <1000 ng/mL [facility] Benzodiazepines Ql (U) Negative < 200 ng/mL [facility] Cannabinoids Screen Ql (U) Positive < 50 ng/mL [facility] Cocaine Ql (U) Negative < 300 ng/mL [facility] Opiates Ql (U) Negative < 300 ng/mL [facility] Laboratory - Hematology and Cell countsOrdered By: Desmond Mendoza on 02-23-2024 MCH (RBC) [Entitic mass] 30.3 pg 27.0-32.0 [facility] MCHC (RBC) [Mass/Vol] 34.3 g/dL 32-[address] [facility] Nucleated RBC/100 WBC (Bld) [Ratio] 0 % 0-5 [facility] Platelet mean volume (Bld) [Entitic vol] 10.9 fL 6.2-12.0 [facility] Platelets (Bld) [#/Vol] 219 10*3/uL 150-450 [facility] Mucus LM Ql (Urine sed)Order ed By: Desmond Mendoza on 02-23-2024 Mucus Ql (Urine sed) 0 SEEN /hpf [facility] Nitrite Test strip Ql (U)Ord ered By: Desmond Mendoza on 02-23-2024 Nitrite Ql (U) Negative Negative [facility] No Panel InformationOrdered By: Mainor Coleman on 02-23-2024 MDMA (Ecstasy) Screen Negative < 500 ng/mL [facility] Urine Barbiturates Screen Negative < 200 ng/mL [facility] Urine Drug Screen Comment [facility] Comment on above: CONFIRMATORY TESTING FOR [...] Methadone Screen Negative < 300 ng/mL [facility] on above: Test not performed VLDL Cholesterol [facility] Comment on above: Test not performed No Panel InformationOrdered By: Desmond Mendoza on 02-23-2024 Estimated Creatinine Clearance Calc 116.09 ml/min [facility] Estimated GFR (MDRD) Amer 96 mL/min >60 [facility] Comment on above: GFR Calc Estimated GFR (MDRD) Non-Af Amer 79 mL/min >60 [facility] Comment on above: Non- GFR Calc Urine RBC 0 SEEN /hpf 0-5 [facility] Protein Test strip Ql (U)Ord ered By: Desmond Mendoza on 02-23-2024 Protein Ql (U) Negative Negative [facility] RBC Auto (Bld) [#/Vol]Ordere d By: Desmond Mendoza on 02-23-2024 RBC (Bld) [#/Vol] 5.31 10*6/uL 4.6-6.2 [facility] Serum or plasma calcium branden urement (mass/volume)Ordered By: Desmond Mendoza on 02-23-2024 Calcium [Mass/Vol] 9.1 mg/dL 8.5-10.1 [facility] Serum or plasma creatinine m easurement (mass/volume)Ordered By: Desmond Mendoza on 02-23-2024 Creatinine [Mass/Vol] 1.08 mg/dL 0.70-1.[address] [facility] Comment on above: The validity of the calculated GFR & GFRAA in patients over 70 years has not been determined. Clinical correlation is essential. Serum or plasma thyroid stim ulating hormone (TSH) measurement (units/volume)Ordered By: Mainor Coleman on 02-23-2024 TSH Qn 0.88 uIU/mL 0.358-3.74 [facility] Serum or plasma urea nitroge n measurement (mass/volume)Ordered By: Desmond Mendoza on 02-23-2024 Urea nitrogen [Mass/Vol] 15 mg/dL - [facility] Squamous epithelial cells de tection in urine sediment by light microscopyOrdered By: Desmond Mendoza on 02-23-2024 Epithelial cells.squamous LM Ql (Urine sed) 0 SEEN /hpf 0-5 [facility] Thin prep Papanicolaou smear with manual screeningOrdered By: Karli Reyes on 02-23-2024 Thin prep Papanicolaou smear with manual screening 258 mg/dL 74-106 [facility] Comment on above: MANAGEMENT OF PATIEN T CARE PER NURSING PROTOCOL Thin prep Papanicolaou smear with manual screeningOrdered By: Desmond Mendoza on 02-23-2024 Thin prep Papanicolaou smear with manual screening > 500 mg/dL 74-106 [facility] Comment on above: MANAGEMENT OF PATIEN T CARE PER NURSING PROTOCOL Thin prep Papanicolaou smear with manual screening 7 02-27 [facility] Thin prep Papanicolaou smear with manual screeningOrdered By: Mainor Coleman on 02-23-2024 Thin prep Papanicolaou smear with manual screening > 500 mg/dL -106 [facility] Comment on above: MANAGEMENT OF PATIEN T CARE PER NURSING PROTOCOL Urine blood detectionOrdered By: Desmond Mendoza on 02-23-2024 RBC Ql (U) Negative Negative [facility] Urine clarityOrdered By: Lisandro Mendoza on 02-23-2024 Clarity (U) Clear Clear [facility] Urine color determinationOrd ered By: Desmond Mendoza on 02-23-2024 Color (U) Straw Yellow [facility] Urine glucose detectionOrder ed By: Desmond Mendoza on 02-23-2024 Glucose Ql (U) 1000 mg/dl Normal [facility] Urine leukocyte esterase det ection by dipstickOrdered By: Desmond Mendoza on 02-23-2024 Leukocyte esterase Test strip Ql (U) Negative Negative [facility] Urine pHOrdered By: Desmond edward on 02-23-2024 pH (U) 7.0 [pH] 5.0 - 8.0 [facility] Urine phencyclidine (PCP) de tectionOrdered By: Mainor Coleman on 02-23-2024 Phencyclidine Ql (U) Negative < 25 ng/mL [facility] Urine sediment bacteria coun t by microscopy (number/high power field)Ordered By: Desmond Mendoza on 02-23-2024 Bacteria LM.HPF (Urine sed) [#/Area] 0 /[HPF] None Seen [facility] Urine specific gravity measu rementOrdered By: Desmond Mendoza on 02-23-2024 Specific gravity (U) [Rel density] 1.010 1.002-1.030 [facility] Urine urobilinogen measureme ntOrdered By: Desmond Mendoza on 02-23-2024 Urobilinogen Ql (U) Normal mg/dl Normal [facility] Whole blood hemoglobin A1c/t otal hemoglobin ratio (mass fraction)Ordered By: Mainor Coleman on 02-23-2024 HbA1c (Bld) [Mass fraction] 8.2 % 3.8-5.6 [facility] Comment on above: Normal < 5.7 % Predi abetic 5.7 - 6.4 % Diabetic >or= 6.5 % Please note range changes. Absolute lymphocyte countOrd ered By: Desmond Mendoza on 02-22-2024 Lymphocytes Auto (Unsp spec) [#/Vol] 2.57 10*3/uL 0.83-4.51 [facility] Automated lymphocyte count a s percentage of total leukocytesOrdered By: Desmond Mendoza on 02-22-2024 Lymphocytes/100 WBC Auto (Unsp spec) 29.2 % 19-41 [facility] Base excessOrdered By: Bryce Mendoza on 02-22-2024 Base excess Calc (BldV) [Moles/Vol] 2 mmol/L -1.0-3.5 [facility] Basophil percentageOrdered B y: Mainor Garciaenzo on 02-22-2024 Basophil percentage 3.9 mg/dL 2.5-4.9 [facility] Basophil percentageOrdered B y: Desmond Mendoza on 02-22-2024 Basophils/100 WBC (Bld) 0.9 % 0-1 [facility] Chloride [Moles/Vol] 92 mmol/L 98-107 [facility] Eosinophils/100 WBC (Bld) 4.4 % 0-5 [facility] Glucose [Mass/Vol] 890 mg/dL 74-106 [facility] Comment on above: Critical Result(s) C alled at: 23:31:33 02/22/2024 by: Cassie Joseph to mmartin2. Results read back by same.Glucose result greater than or equal to 200 mg/dLsuggests DIABETES MELLITUS per A.D.A. criteria. Hemoglobin (Bld) [Mass/Vol] 16.1 g/dL 13.0-16.5 [facility] Lactate [Moles/Vol] 1.9 mmol/L 0.4-2.0 [facility] Monocytes/100 WBC (Bld) 9.6 % 0-10 [facility] Neutrophils (Bld) [#/Vol] 4.9 10*3/uL 2.0-7.7 [facility] Neutrophils/100 WBC (Bld) 55.6 % 47-70 [facility] Potassium [Moles/Vol] 4.3 mmol/L 3.5-5.[address] [facility] Sodium [Moles/Vol] 127 mmol/L 136-145 [facility] WBC (Bld) [#/Vol] 8.8 10*3/uL 4.4-11.0 [facility] CO2 (BldV) [Moles/Vol]Ordere d By: Desmond Mendoza on 02-22-2024 CO2 [Moles/Vol] 29 mmol/L 23-33 [facility] Determination of erythrocyte mean corpuscular volume (MCV)Ordered By: Desmond Mendoza on 02-22-2024 MCV (RBC) [Entitic vol] 90.7 fL 80-94 [facility] Erythrocyte distribution wid th ratioOrdered By: Desmond Mendoza on 02-22-2024 Erythrocyte distribution width (RBC) [Ratio] 13.2 % 11.6-14.6 [facility] Erythrocyte distribution wid th standard deviationOrdered By: Desmond Mendoza on 02-22-2024 Erythrocyte distribution width (RBC) [Entitic vol] 44.2 fL 35.1-43.9 [facility] Hematocrit Auto (Bld) [Volum e fraction]Ordered By: Desmond Mendoza on 02-22-2024 Hematocrit (Bld) [Volume fraction] 48.5 % 40-54 [facility] Immature granulocytes/100 WB C Auto (Bld)Ordered By: Desmond Mendoza on 02-22-2024 Immature granulocytes/100 WBC (Bld) 0.300 % 0.0-0.9 [facility] Comment on above: IG% - Immature Granu locytes (promyelocytes, myelocytes and metamyelocytes) > 1% indicates that a LEFT SHIFT is Present. Laboratory - Chemistry and C hemistry - challengeOrdered By: Desmond Mendoza on 02-22-2024 HCO3 (Bld) [Moles/Vol] 28 mmol/L 22-26 [facility] CO2 [Moles/Vol] 26.0 mmol/L 21.0-32.0 [facility] Magnesium [Mass/Vol] 2.0 mg/dL 1.6-2.6 [facility] Urea nitrogen/Creatinine [Mass ratio] 14.3 mg/mg 10-20 [facility] Laboratory - Hematology and Cell countsOrdered By: Desmond Mendoza on 02-22-2024 MCH (RBC) [Entitic mass] 30.1 pg 27.0-32.0 [facility] MCHC (RBC) [Mass/Vol] 33.2 g/dL 32-[address] [facility] Nucleated RBC/100 WBC (Bld) [Ratio] 0 % 0-5 [facility] Platelet mean volume (Bld) [Entitic vol] 10.7 fL 6.2-12.0 [facility] Platelets (Bld) [#/Vol] 230 10*3/uL 150-450 [facility] No Panel InformationOrdered By: Desmond Mendoza on 02-22-2024 Blood Gas Sample Site Not entered [facility] Blood Gas Specimen Type ROBERTA [facility] Oxygen Delivery Device Room Air [facility] Estimated Creatinine Clearance Calc 99.68 ml/min [facility] Estimated GFR (MDRD) Amer 80 mL/min >60 [facility] Comment on above: GFR Calc Estimated GFR (MDRD) Non-Af Amer 66 mL/min >60 [facility] Comment on above: Non- GFR Calc PCO2 venousOrdered By: Bryce Mendoza on 02-22-2024 CO2 (BldV) [Partial pressure] 48.8 mm[Hg] 41-51 [facility] PO2 venousOrdered By: Desmond Mendoza on 02-22-2024 Oxygen (BldV) [Partial pressure] 22 mm[Hg] 25-40 [facility] RBC Auto (Bld) [#/Vol]Ordere d By: Desmond Mendoza on 02-22-2024 RBC (Bld) [#/Vol] 5.35 10*6/uL 4.6-6.2 [facility] Serum or plasma acetone branden urement (mass/volume)Ordered By: Desmond Mendoza on 02-22-2024 Acetone [Mass/Vol] Negative NEG [facility] Serum or plasma calcium branden urement (mass/volume)Ordered By: Desmond Mendoza on 02-22-2024 Calcium [Mass/Vol] 9.3 mg/dL 8.5-10.1 [facility] Serum or plasma creatinine m easurement (mass/volume)Ordered By: Desmond Mendoza on 02-22-2024 Creatinine [Mass/Vol] 1.26 mg/dL 0.70-1.[address] [facility] Comment on above: The validity of the calculated GFR & GFRAA in patients over 70 years has not been determined. Clinical correlation is essential. Serum or plasma urea nitroge n measurement (mass/volume)Ordered By: Desmond Mendoza on 02-22-2024 Urea nitrogen [Mass/Vol] 18 mg/dL 7-18 [facility] Thin prep Papanicolaou smear with manual screeningOrdered By: Desmond Mendoza on 02-22-2024 Thin prep Papanicolaou smear with manual screening 9 5-15 [facility] Thin prep Papanicolaou smear with manual screening 317 mOsm/KG 275-295 [facility] Thin prep Papanicolaou smear with manual screening > 500 mg/dL 74-106 [facility] Comment on above: Dr Finn FollowedMA NAGEMENT OF PATIENT CARE PER NURSING PROTOCOL Venous blood pH measurementO rdered By: Desmond Mendoza on 02-22-2024 pH (BldV) 7.36 [pH] 7.32-7.42 [facility] Vital signsOrdered By: Bryce Mendoza on 02-22-2024 Oxygen saturation in Blood 33 % 50-70 [facility] Whole blood hemoglobin A1c/t otal hemoglobin ratio (mass fraction)Ordered By: Mainor Coleman on 02-22-2024 HbA1c (Bld) [Mass fraction] 8.1 % 3.8-5.6 [facility] Comment on above: Normal < 5.7 % Predi abetic 5.7 - 6.4 % Diabetic >or= 6.5 % Please note range changes. CBC AND ELECTRONIC DIFFon Basophils (Bld) [#/Vol] 0.06 10*3/uL 0.00 - 0.09 K/uL [facility] Basophils/100 WBC (Bld) 0.7 % [facility] Differential cell count method Nom (Bld) Electronic Differential [facility] Eosinophils (Bld) [#/Vol] 0.60 10*3/uL High 0.00 - 0.48 K/uL [facility] Eosinophils/100 WBC (Bld) 7.5 % [facility] Erythrocyte distribution width (RBC) [Ratio] 13.6 % 10.9 - 14.3 % [facility] Hematocrit (Bld) [Volume fraction] 48.0 % 39.6 - 48.8 % [facility] Hemoglobin (Bld) [Mass/Vol] 16.3 g/dL 13.4 - 16.8 g/dL [facility] Immature granulocytes (Bld) [#/Vol] 0.05 10*3/uL NINF - 0.07 K/uL [facility] Immature granulocytes/100 WBC (Bld) 0.6 % [facility] Interpretation and review of laboratory results Abnormal [facility] Lymphocytes (Bld) [#/Vol] 2.18 10*3/uL 0.83 - 3.57 K/uL [facility] Lymphocytes/100 WBC (Bld) 27.2 % [facility] MCH (RBC) [Entitic mass] 30.1 pg 26.1 - 33.3 pg [facility] MCHC (RBC) [Mass/Vol] 34.0 g/dL 31.9 - 36.5 g/dL [facility] MCV (RBC) [Entitic vol] 88.7 fL 79.0 - 94.5 fL [facility] Monocytes (Bld) [#/Vol] 0.74 10*3/uL 0.24 - 0.93 K/uL [facility] Monocytes/100 WBC (Bld) 9.2 % [facility] Neutrophils (Bld) [#/Vol] 4.39 10*3/uL 1.57 - 6.19 K/uL [facility] Nucleated RBC/100 WBC (Bld) [Ratio] 0.0 % [facility] Platelet mean volume (Bld) [Entitic vol] 9.3 fL 8.7 - 12.3 fL [facility] Platelets (Bld) [#/Vol] 256 10*3/uL 146 - 337 K/uL [facility] RBC (Bld) [#/Vol] 5.41 10*6/uL [facility] Segmented neutrophils/100 WBC (Bld) 54.8 % [facility] WBC (Bld) [#/Vol] 8.02 10*3/uL 3.73 - 10.10 K/uL [facility] CMPN WITHOUT GLUCOSEon 02-14 Albumin [Mass/Vol] 4.1 g/dL 3.5 - 5.0 g/dL [facility] ALP [Catalytic activity/Vol] 116 U/L 32 - 126 U/L [facility] ALT [Catalytic activity/Vol] 88 U/L High 10 - 52 U/L [facility] Anion gap [Moles/Vol] 11 mmol/L 7 - 17 mmol/L [facility] AST [Catalytic activity/Vol] 46 U/L High 10 - 39 U/L [facility] Bilirubin [Mass/Vol] 0.4 mg/dL NINF - 1.5 mg/dL [facility] Calcium [Mass/Vol] 9.0 mg/dL 8.6 - 10. 5 mg/dL [facility] Chloride [Moles/Vol] 103 mmol/L 98 - 10 8 mmol/L [facility] CO2 [Moles/Vol] 24 mmol/L 21 - 31 mmol/L [facility] Creatinine [Mass/Vol] 0.81 mg/dL 0.70 - 1.30 mg/dL [facility] eGFR, CKD-EPI, Male - PINF [facility] Comment on above: Reported eGFR is bas ed on the CKD-EPI 2020 equation using creatinine, age, and sex. Interpretation and review of laboratory results Abnormal [facility] Potassium [Moles/Vol] 4.1 mmol/L 3.5 - 5.0 mmol/L [facility] Protein [Mass/Vol] 7.8 g/dL 6.4 - 8.3 g/dL [facility] Sodium [Moles/Vol] 134 mmol/L Low 135 - 145 mmol/L [facility] Urea nitrogen [Mass/Vol] 15 mg/dL 7 - 25 mg/dL [facility] Urea nitrogen/Creatinine [Mass ratio] 19 mg/mg [facility] LACTATE DEHYDROGENASEon Interpretation and review of laboratory results Normal [facility] LDH Lactate to pyruvate reaction [Catalytic activity/Vol] 143 U/L 100 - 190 U/L [facility] No Panel Informationon 02-14 [facility] SEDIMENTATION RATE, AUTOMATE Don 02-15-2024 ESR (Bld) [Velocity] 17 mm/h High NINF [facility] Interpretation and review of laboratory results Abnormal [facility] URINE PROTEIN/CREA RATIO, RA Monika 02-15-2024 Creatinine (24H U) [Mass/Vol] 60.18 mg/dL [facility] Protein Unsp time (U) [Mass/Vol] 8 mg/dL [facility] Protein/Creatinine (U) [Mass ratio] 0.133 mg/mg [facility] XR Shoulder - left 2 Viewson [...] be posttraumatic Remote trauma of the clavicle [facility] 2 Viewso n [...] which can predispose to shoulder instability RADIOLOGY Rdaha [place] D O - 01/12/2024 EXAM: XR [...] with calcific tendinopathy of the rotator cuff [facility] Radiology Study observation (narrative) [facility] XR Shoulder - right 2 ViewsO rdered By: Radha Durham on 01-12-2024 [facility] Work Phone: [id number] ACTIVITYOrdered By: Mahogany Rowley on 01-05-2024 [id number] Inhibitor Not Indicated [facility] vWf cleaving protease actual/normal Chromogenic method (PPP) [Rel catalytic activity/Vol] 95 % 40 - PINF % [facility] Comment on above: [id number] activity is measured by chromogenic ELLIE (enzyme-linked immunosorbent assay). Severe deficiencies of [id number] (activity <10%) appear to be a relatively [...] Some literature also suggests serial measurement of VEXHYA76 activity levels may assist clinicians in monitoring TTP patients and provide prognostic value in prediction of TTP relapses. When interpreting the serological results, the history of the sample has to be taken into account. This test was developed and its performance characteristics determined by [facility] at [facility]. It has not been cleared or approved by the FDA. The laboratory is regulated under CLIA as qualified to perform high-complexity testing. This test is used for clinical purposes. It should not be regarded as investigational or for research. [facility] C REACTIVE PROTEINon 024 CRP High sensitivity method [Mass/Vol] 18.98 mg/L High NINF - 10.00 mg/L [facility] Interpretation and review of laboratory results Abnormal [facility] CBC AND ELECTRONIC DIFFon Basophils (Bld) [#/Vol] 0.06 10*3/uL 0.00 - 0.09 K/uL [facility] Basophils/100 WBC (Bld) 0.7 % [facility] Differential cell count method Nom (Bld) Electronic Differential [facility] Eosinophils (Bld) [#/Vol] 0.67 10*3/uL High 0.00 - 0.48 K/uL [facility] Eosinophils/100 WBC (Bld) 7.7 % [facility] Erythrocyte distribution width (RBC) [Ratio] 14.2 % 10.9 - 14.3 % [facility] Hematocrit (Bld) [Volume fraction] 48.2 % 39.6 - 48.8 % [facility] Hemoglobin (Bld) [Mass/Vol] 15.9 g/dL 13.4 - 16.8 g/dL [facility] Immature granulocytes (Bld) [#/Vol] K/uL NINF - 0.07 K/uL [facility] Immature granulocytes/100 WBC (Bld) 0.2 % [facility] Interpretation and review of laboratory results Abnormal [facility] Lymphocytes (Bld) [#/Vol] 2.58 10*3/uL 0.83 - 3.57 K/uL [facility] Lymphocytes/100 WBC (Bld) 29.7 % [facility] MCH (RBC) [Entitic mass] 29.6 pg 26.1 - 33.3 pg [facility] MCHC (RBC) [Mass/Vol] 33.0 g/dL 31.9 - 36.5 g/dL [facility] MCV (RBC) [Entitic vol] 89.8 fL 79.0 - 94.5 fL [facility] Monocytes (Bld) [#/Vol] 0.77 10*3/uL 0.24 - 0.93 K/uL [facility] Monocytes/100 WBC (Bld) 8.9 % [facility] Neutrophils (Bld) [#/Vol] 4.60 10*3/uL 1.57 - 6.19 K/uL [facility] Nucleated RBC/100 WBC (Bld) [Ratio] 0.0 % [facility] Platelet mean volume (Bld) [Entitic vol] 9.7 fL 8.7 - 12.3 fL [facility] Platelets (Bld) [#/Vol] 265 10*3/uL 146 - 337 K/uL [facility] RBC (Bld) [#/Vol] 5.37 10*6/uL [facility] Segmented neutrophils/100 WBC (Bld) 52.8 % [facility] WBC (Bld) [#/Vol] 8.70 10*3/uL 3.73 - 10.10 K/uL [facility] COMPREHENSIVE METABOLIC PANE Adán 01-04-2024 Albumin [Mass/Vol] 4.2 g/dL 3.5 - 5.0 g/dL [facility] ALP [Catalytic activity/Vol] 101 U/L 32 - 126 U/L [facility] ALT [Catalytic activity/Vol] 101 U/L High 10 - 52 U/L [facility] Anion gap [Moles/Vol] 10 mmol/L 7 - 17 mmol/L [facility] AST [Catalytic activity/Vol] 59 U/L High 10 - 39 U/L [facility] Bilirubin [Mass/Vol] 0.4 mg/dL NINF - 1.5 mg/dL [facility] Calcium [Mass/Vol] 9.6 mg/dL 8.6 - 10. 5 mg/dL [facility] Chloride [Moles/Vol] 103 mmol/L 98 - 10 8 mmol/L [facility] CO2 [Moles/Vol] 26 mmol/L 21 - 31 mmol/L [facility] Creatinine [Mass/Vol] 0.77 mg/dL 0.70 - 1.30 mg/dL [facility] eGFR, CKD-EPI, Male - PINF [facility] Comment on above: Reported eGFR is bas ed on the CKD-EPI 2020 equation using creatinine, age, and sex. Glucose [Mass/Vol] 160 mg/dL High 70 - 99 mg/dL [facility] Interpretation and review of laboratory results Abnormal [facility] Osmolality Calc [Osmolality] 287 [facility] Potassium [Moles/Vol] 4.0 mmol/L 3.5 - 5.0 mmol/L [facility] Protein [Mass/Vol] 7.5 g/dL 6.4 - 8.3 g/dL [facility] Sodium [Moles/Vol] 135 mmol/L 135 - 145 mmol/L [facility] Urea nitrogen [Mass/Vol] 12 mg/dL 7 - 25 mg/dL [facility] Urea nitrogen/Creatinine [Mass ratio] 16 mg/mg [facility] HEMOGLOBIN A1Con 01-04-2024 Average glucose Estimated from glycated hemoglobin (Bld) [Mass/Vol] 157 mg/dL [facility] HbA1c (Bld) [Mass fraction] 7.1 % High 4.7 - 5.6 % [facility] Interpretation and review of laboratory results Abnormal [facility] LACTATE DEHYDROGENASEon 12-15 Interpretation and review of laboratory results Normal [facility] LDH Lactate to pyruvate reaction [Catalytic activity/Vol] 158 U/L 100 - 190 U/L [facility] No Panel Informationon 01-03 [facility] CNPNon 12-31-2023 CNPN Telephone (ORQ) JAIRO ADKINS JR ([id number]) 1980 M Date Time Provider Department 12/31/23 NONE (HISTORICAL) ORQ During your visit today, we recorded the following information about you: Angel Cooley 12/31/2023 4:40 PM Signed Patient seen in [facility] on 12/31/2023 in regards to Carpal tunnel syndrome right wrist. 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 Patrick or another provider be willing to see patient in regards to their injury? Patient can be reached at [phone] Thank You! Abbey Quan, RN 01/01/2024 7:39 [...] Encounter Status:Closed by ANGEL COOLEY on 01/30/24 [facility] ED NOTEon 12-31-2023 ED NOTE HNO ID: [id number] Author: CLINT ESTEBAN RN Service: Nursing Author [...] Stated understanding. Prescription(S) were given X1 (printed). [facility] ED NOTE HNO ID: [id number] Author: CLINT ESTEBAN RN Service: Nursing Author Type: Registered Nurse Type: ED Notes Filed: 12/31/2023 16:23 Note Text: MD Mello rounds on pt at bedside to assess. Normal [facility] ED NOTE HNO ID: [id number] Author: LIZZY DAMON RN Service: ? Author Type: Registered Nurse Type: ED Notes Filed: 12/31/2023 16:20 Note Text: Pt to ED with c/o right shoulder pain x 2 weeks and right wrist pain x 1 month with numbness to 3 fingers. Denies injury [facility] ED PROV NOTEon 12-31-2023 ED PROV NOTE HNO ID: [id number] Author: POLO MELLO MD Service: Emergency Medicine Author Type: Physician Type: ED Provider Notes Filed: 12/31/2023 16:37 Note Text: ED Provider Note Patient Name: Jario Adkins : 1980 SERVICE DATE: 12/31/23 History [...] nursing note reviewed. Exam conducted with a inspector precision assembly present. HENT: Head: Normocephalic and atraumatic. Nose: [...] rotator cuff tendinitis Acknowledged POLO MELLO SIGNATURE: MD Scott Myles PAUL D 12/31/23 1637 Normal [facility] CBC + DIFFon 12-24-2023 Baso # 0.02 x10EE3/UL Normal 0.00 - 0.10 [facility] Comment on above: Performed By: #### 2 58622 #### [facility],[address] [place] [address] 53683 Basophils/100 WBC (Bld) 0.3 % Normal 0.0 - 2.0 [facility] Comment on above: Performed By: #### 2 10472 #### [facility],[address] [place] [address] 29033 CBC + DIFF Normal [facility] Comment on above: Result Comment: CBC- COMPLETE BLOOD COUNT Performed By: #### 2 25406 #### [facility],[address] [place] [address] 82398 EO # 0.68 x10EE3/UL High 0.00 - 0.50 [facility] Comment on above: Performed By: #### 2 42801 #### [facility],[address] [place] [address] 24983 Eosinophils/100 WBC (Bld) 9.4 % High 0.0 - 7.0 [facility] Comment on above: Performed By: #### 2 96935 #### [facility],[address] [place] [address] 95238 Erythrocyte distribution width (RBC) [Ratio] 13.7 % Normal 12.0 - 15.6 [facility] Comment on above: Performed By: #### 2 07375 #### [facility],[address] [place] [address]25 Hematocrit (Bld) [Volume fraction] 44.0 % Normal 40.0 - 52.0 [facility] Comment on above: Performed By: #### 2 51475 #### [facility],[address] [place] [address] 98397 Hemoglobin (Bld) [Mass/Vol] 15.5 g/dL Normal 13.0 - 17.5 [facility] Comment on above: Performed By: #### 2 33950 #### [facility],[address] [place] [address] Lymph # 2.57 x10EE3/UL Normal 0.80 - 2.80 [facility] Comment on above: Performed By: #### 2 09082 #### [facility],[address] [place] [address] Lymphocytes/100 WBC (Bld) 35.9 % Normal 20.0 - 45.0 [facility] Comment on above: Performed By: #### 2 48167 #### [facility],[address] [place] [address] MANUAL DIFF N/A Normal [facility] Comment on above: Performed By: #### 2 50405 #### [facility],[address] [place] [address] MCH (RBC) [Entitic mass] 31 pg Normal 27 - 33 [facility] Comment on above: Performed By: #### 2 98924 #### [facility],[address] [place] [address] MCHC 35 X10 3 Normal 32 - 36 [facility] Comment on above: Performed By: #### 2 64788 #### [facility],[address] [place] [address] MCV (RBC) [Entitic vol] 89 fL Normal 81 - 98 [facility] Comment on above: Performed By: #### 2 67951 #### [facility],[address] [place] [address] [place] # 0.48 x10EE3/UL Normal 0.20 - 1.00 [facility] Comment on above: Performed By: #### 2 68908 #### [facility],[address] [place] [address] MONOS % 6.7 % Normal 0.0 - 10.0 [facility] Comment on above: Performed By: #### 2 08313 #### [facility],[address] [place] [address] 48564 Morphology Braxton (Bld) [Interp] N/A Normal [facility] Comment on above: Performed By: #### 2 40111 #### [facility],[address] [place] [address] 96805 Neut # 3.42 x10EE3/UL Normal 1.50 - 7.10 [facility] Comment on above: Performed By: #### 2 56063 #### [facility],[address] [place] [address] 38603 Neutrophils/100 WBC (Bld) 47.8 % Normal 46.0 - 76.0 [facility] Comment on above: Performed By: #### 2 05935 #### [facility],[address] [place] [address] 24035 PLATELET 216 x10EE3/UL Normal 150 - 450 [facility] Comment on above: Performed By: #### 2 30324 #### [facility],[address] [place] [address] 62749 Platelet mean volume (Bld) [Entitic vol] 7.7 fL Normal 6.4 - 10.5 [facility] Comment on above: Result Comment: AUTO MATED DIFFERENTIAL Performed By: #### 2 64858 #### [facility],[address] [place] [address] 19607 RBC 4.97 x 10EE6/UL Normal 4.50 - 6.00 [facility] Comment on above: Performed By: #### 2 15068 #### [facility],[address] [place] [address] 04683 WBC 7.2 x 10EE3/UL Normal 4.5 - 10.8 [facility] Comment on above: Performed By: #### 2 21526 #### [facility],[address] [place] [address] 80418 CMP with eGFRon 12-24-2023 AGE 43 years Normal [facility] Comment on above: Performed By: #### 2 27385 #### [facility],[address] [place] [address] 53906 Albumin [Mass/Vol] 3.3 g/dL Low 3.4 - 5.0 [facility] Comment on above: Performed By: #### 2 41390 #### [facility],[address] [place], [place] [address] Albumin/Globulin [Mass ratio] 0.8 {ratio} Low 0.9 - 1.6 [facility] Comment on above: Performed By: #### 2 42226 #### [facility],[address] [place] [address] 84443 ALK PHOS 126 U/L High 46 - 116 [facility] Comment on above: Performed By: #### 2 57276 #### [facility],[address] [place] [address] 33831 ALT [Catalytic activity/Vol] 229 U/L High 16 - 63 [facility] Comment on above: Performed By: #### 2 05305 #### [facility],[address] [place] [address] 88150 Anion gap [Moles/Vol] 13 mmol/L Normal 10 - 20 [facility] Comment on above: Performed By: #### 2 20358 #### [facility],[address] [place] [address] 34627 AST [Catalytic activity/Vol] 111 U/L High 15 - 37 [facility] Comment on above: Performed By: #### 2 35788 #### [address] [address] B/C RATIO 19 ratio Normal 0 - 30 [facility] Comment on above: Performed By: #### 2 50526 #### [facility],[address] [place] [address] 64943 Bilirubin [Mass/Vol] 0.4 mg/dL Normal 0.2 - 1.0 [facility] Comment on above: Performed By: #### 2 81281 #### [place] [address] Calcium [Mass/Vol] 8.5 mg/dL Normal 8.5 - 10.1 [facility] Comment on above: Performed By: #### 2 13916 #### [facility],[address] [place] [address] Chloride [Moles/Vol] 104 mmol/L Normal 98 - 107 [facility] Comment on above: Performed By: #### 2 33259 #### [facility],[address] [place] [address] CMP with eGFR Normal [facility] Comment on above: Result Comment: COMP REHENSIVE METABOLIC PANEL Performed By: #### 2 20800 #### [place] [address] CO2 [Moles/Vol] 25.8 mmol/L Normal 21.0 - 32.0 [facility] Comment on above: Performed By: #### 2 21147 #### [facility],[address] [place] [address] Creatinine [Mass/Vol] 0.86 mg/dL Normal 0.70 - 1.30 [facility] Comment on above: Performed By: #### 2 81365 #### [facility],[address] [place], [place] [address] GFR/1.73 sq M.predicted among non-blacks MDRD (S/P/Bld) [Vol rate/Area] mL/min/{1.73_m2} Normal 60 - 999 [facility] Comment on above: Performed By: #### 2 68616 #### [place] [address] Result Comment: ACCO RDING TO THE NATIONAL KIDNEY DISEASE EDUCATION PROGRAM(NKDE), A NORMAL eGFR IS A VALUE GREATER THAN OR EQUAL TO 60 ML/MIN/1.73 SQ METERS. CHRONIC KIDNEY DISEASE: <60mL/MIN/1.73 SQ METERS KIDNEY FAILURE: <15mL/MIN/1.73 SQ METERS THIS TEST SHOULD ONLY BE USED FOR PATIENTS 18 YEARS OF AGE AND OLDER. Globulin (S) [Mass/Vol] 4.1 g/dL High 1.5 - 3.8 [facility] Comment on above: Performed By: #### 2 29304 #### [facility],[address] [place] [address]2479 Glucose [Mass/Vol] 185 mg/dL High 74 - 106 [facility] Comment on above: Performed By: #### 2 04315 #### [facility],[address] [place] [address]185 Potassium [Moles/Vol] 3.6 mmol/L Normal 3.5 - 5.1 [facility] Comment on above: Performed By: #### 2 26488 #### [facility],[address] [place] [address] 96658 Protein [Mass/Vol] 7.4 g/dL Normal 6.4 - 8.2 [facility] Comment on above: Performed By: #### 2 79297 #### [address] [address] Sodium [Moles/Vol] 139 mmol/L Normal 136 - 145 [facility] Comment on above: Performed By: #### 2 02248 #### [facility],[address] [place] [address] 88596 Urea nitrogen [Mass/Vol] 16 mg/dL Normal 7 - 18 [facility] Comment on above: Performed By: #### 2 81593 #### [facility],[address] [place] [address] 12842 CPKon 12-24-2023 CPK >1000 High 39 - 308 [facility] Comment on above: Performed By: #### 2 60786 #### [address],[place] [address] CPK >1000 High 39 - 308 [facility] Comment on above: Performed By: #### 2 28335 #### [facility],[address] [place] [address] BRAIN W/O CONTRASTon 03-1 CT BRAIN W/O CONTRAST [address] [address] Patient: JAIRO ADKINS Phone#: : 1980 Age: 43 Gender: M Pt. Type: ER Account: [id number] Location: [facility] Ordering: MAINOR FERNANDEZ Exam Date: 12/24/2023/7:02 Family Phys: Charge Code: [id number] Physician: [place] Order #: [id number] Dose#: 52.30 PROCEDURE: CT BRAIN WITHOUT CONTRAST [...] Stock MD on 12/24/2023 at 23:[address] [facility] [address] CERVICAL W/O CONTRASTon 0 12-24-2023 CT CERVICAL W/O CONTRAST [place] [address] Patient: JAIRO ADKINS Phone#: : 1980 Age: 43 Gender: M Pt. Type: ER Account: [id number] Location: [facility] Ordering: MAINOR FERNANDEZ Exam Date: 12/24/2023/7:02 Family Phys: Charge Code: [id number] Physician: [place] Order #: [id number] Dose#: [id number] PROCEDURE: CT CERVICAL WITHOUT CONTRAST [...] 43 Gender: M Pt. Type: ER Account: [id number] Location: 052 Ordering: MAINOR FERNANDEZ Exam Date: 12/24/2023/7:02 Family Phys: Charge Code: [id number] Physician: [place] Order #: [id number] Dose#: 16.20 Approved by: Joann Stock MD on 12/25/2023 at 8:54 Normal [facility] FINGERS RTon 12-24-2023 FINGERS RT [place] [address] Patient: ADKINSJAIRO THAO Phone#: : 1980 Age: 43 Gender: M Pt. Type: ER Account: [id number] Location: 052 Ordering: MAINOR FERNANDEZ Exam Date: 12/24/2023/8:22 Family Phys: Charge Code: [id number] Physician: [place] Order #: [id number] Dose#: PROCEDURE: X-RAY FINGER RT MIN 2 VIEWS COMPARISON: None. INDICATIONS: Index finger. FINDINGS: BONES: Normal. No significant arthropathy or acute abnormality. SOFT TISSUES: Negative. No visible soft tissue swelling. EFFUSION: None visible. OTHER: Negative. CONCLUSION: No acute disease. Dictated by: Joann Stock MD on 12/24/2023 at 21:53 Approved by: Joann Stock MD on 12/24/2023 at 21:53 Normal [facility] SHOULDER COMPLETE RTon 12-23 SHOULDER COMPLETE RT [place] [address] Patient: JAIRO ADKINS Phone#: : 1980 Age: 43 Gender: M Pt. Type: ER Account: [id number] Location: 052 Ordering: MAINOR FERNANDEZ Exam Date: 12/24/2023/8:04 Family Phys: Charge Code: [id number] Physician: [place] Order #: [id number] Dose#: PROCEDURE: X-RAY SHOULDER COMPLETE RT MIN 2 VIEWS COMPARISON: None. INDICATIONS: Pain. FINDINGS: BONES: Normal. No significant arthropathy or acute abnormality. SOFT TISSUES: Negative. No visible soft tissue swelling. EFFUSION: None visible. OTHER: Negative. CONCLUSION: No acute disease. Dictated by: Joann Stock MD on 12/24/2023 at 21:51 Approved by: Joann Stock MD on 12/24/2023 at 21:52 Normal [facility] TROPONIN I, HIGH SENSITIVITY on 12-24-2023 HS TROPONIN 65.7 pg/mL Normal 0.0 - 76.2 [facility] Comment on above: Performed By: #### 2 41537 #### [place] [address] TSH W/ REFLEX TO FREE T4on 0 12-24-2023 TSH Qn 0.88 m[IU]/L Normal 0.34 - 5.60 [facility] Comment on above: Performed By: #### 2 23583 #### [facility],[address] [place] [address] [id number] ACTIVITYOrdered By: Mahogany Rowley on 11-17-2023 [id number] Inhibitor Not Indicated [facility] vWf cleaving protease actual/normal Chromogenic method (PPP) [Rel catalytic activity/Vol] 87 % 40 - PINF % [facility] Comment on above: [id number] activity is measured by chromogenic ELLIE (enzyme-linked immunosorbent assay). Severe deficiencies of EXHBAX87 (activity <10%) appear to be a relatively [...] Some literature also suggests serial measurement of IKBANR11 activity levels may assist clinicians in monitoring TTP patients and provide prognostic value in prediction of TTP relapses. When interpreting the serological results, the history of the sample has to be taken into account. This test was developed and its performance characteristics determined by [facility] at [facility]. It has not been cleared or approved by the FDA. The laboratory is regulated under CLIA as qualified to perform high-complexity testing. This test is used for clinical purposes. It should not be regarded as investigational or for research. [facility] [id number] IGG ABOrdered By: Neil Pineda on 11-17-2023 Interpretation and review of laboratory results Abnormal [facility] vWf cleaving protease inhibitor Qn (PPP) 12.4 U/mL High NINF - 12.0 U/mL [facility] Comment on above: Anti-[id number] IgG an tibodies concentration is determined by ELLIE (enzyme-linked immunosorbent assay). This test was developed and its performance characteristics determined by the [facility] at [facility]. It has not been cleared [...] with high concentrations of autoantibodies other than anti-AWLMHL26 may result in weak positive or borderline results. Elevated bilirubin levels may cause a negative interference with anti-IZCJNH33 IgG antibodies test results. [facility] CBC AND ELECTRONIC DIFFon Basophils (Bld) [#/Vol] 0.04 10*3/uL 0.00 - 0.09 K/uL [facility] Basophils/100 WBC (Bld) 0.8 % [facility] Differential cell count method Nom (Bld) Electronic Differential [facility] Eosinophils (Bld) [#/Vol] 0.58 10*3/uL High 0.00 - 0.48 K/uL [facility] Eosinophils/100 WBC (Bld) 11.0 % [facility] Erythrocyte distribution width (RBC) [Ratio] 14.0 % 10.9 - 14.3 % [facility] Hematocrit (Bld) [Volume fraction] 48.2 % 39.6 - 48.8 % [facility] Hemoglobin (Bld) [Mass/Vol] 16.1 g/dL 13.4 - 16.8 g/dL [facility] Immature granulocytes (Bld) [#/Vol] K/uL NINF - 0.07 K/uL [facility] Immature granulocytes/100 WBC (Bld) 0.2 % [facility] Interpretation and review of laboratory results Abnormal [facility] Lymphocytes (Bld) [#/Vol] 2.11 10*3/uL 0.83 - 3.57 K/uL [facility] Lymphocytes/100 WBC (Bld) 40.1 % [facility] MCH (RBC) [Entitic mass] 30.4 pg 26.1 - 33.3 pg [facility] MCHC (RBC) [Mass/Vol] 33.4 g/dL 31.9 - 36.5 g/dL [facility] MCV (RBC) [Entitic vol] 90.9 fL 79.0 - 94.5 fL [facility] Monocytes (Bld) [#/Vol] 0.51 10*3/uL 0.24 - 0.93 K/uL [facility] Monocytes/100 WBC (Bld) 9.7 % [facility] Neutrophils (Bld) [#/Vol] 2.01 10*3/uL 1.57 - 6.19 K/uL [facility] Nucleated RBC/100 WBC (Bld) [Ratio] 0.0 % [facility] Platelet mean volume (Bld) [Entitic vol] 10.0 fL 8.7 - 12.3 fL [facility] Platelets (Bld) [#/Vol] 213 10*3/uL 146 - 337 K/uL [facility] RBC (Bld) [#/Vol] 5.30 10*6/uL [facility] Segmented neutrophils/100 WBC (Bld) 38.2 % [facility] WBC (Bld) [#/Vol] 5.26 10*3/uL 3.73 - 10.10 K/uL [facility] CMPN WITHOUT GLUCOSEon 11-16 Albumin [Mass/Vol] 3.9 g/dL 3.5 - 5.0 g/dL [facility] ALP [Catalytic activity/Vol] 114 U/L 32 - 126 U/L [facility] ALT [Catalytic activity/Vol] 98 U/L High 10 - 52 U/L [facility] Anion gap [Moles/Vol] 12 mmol/L 7 - 17 mmol/L [facility] AST [Catalytic activity/Vol] 56 U/L High 10 - 39 U/L [facility] Bilirubin [Mass/Vol] 0.3 mg/dL NINF - 1.5 mg/dL [facility] Calcium [Mass/Vol] 8.3 mg/dL Low 8.6 - 10. 5 mg/dL [facility] Chloride [Moles/Vol] 106 mmol/L 98 - 10 8 mmol/L [facility] CO2 [Moles/Vol] 24 mmol/L 21 - 31 mmol/L [facility] Creatinine [Mass/Vol] 0.68 mg/dL Low 0.70 - 1.30 mg/dL [facility] eGFR, CKD-EPI, Male - PINF [facility] Comment on above: Reported eGFR is bas ed on the CKD-EPI 2020 equation using creatinine, age, and sex. Interpretation and review of laboratory results Abnormal [facility] Potassium [Moles/Vol] 4.0 mmol/L 3.5 - 5.0 mmol/L [facility] Protein [Mass/Vol] 7.1 g/dL 6.4 - 8.3 g/dL [facility] Sodium [Moles/Vol] 138 mmol/L 135 - 145 mmol/L [facility] Urea nitrogen [Mass/Vol] 10 mg/dL 7 - 25 mg/dL [facility] Urea nitrogen/Creatinine [Mass ratio] 15 mg/mg [facility] LACTATE DEHYDROGENASEon Interpretation and review of laboratory results Normal [facility] LDH Lactate to pyruvate reaction [Catalytic activity/Vol] 172 U/L 100 - 190 U/L [facility] No Panel Informationon 11-16 [facility] ED Nursing Noteon 09-16-2023 ED Nursing Note Discharge instructio ns, follow up care, and pain management discussed with patient. All questions answered, there are no further questions at this time. Patient ambulated off the unit independently at discharge. Nallely Roland RN 09/16/23 1556 Normal [facility] ED Nursing Note Patient ambulatory t [...] change into. Call light in reach. Normal [facility] ED Provider Noteon ED Provider Note [...] (5' 9) Medications lidocaine-EPINEPHrine (Xylocaine W/EPI) 1 %-1:403800 injection 10 mL (has no administration in [...] Delayed treatment and (more content not included)... [facility] No Panel Informationon 09-16 Ok Adler DO 09/16/2023 5:12 PM Incision and Drainage Performed by: Ok Adler DO Authorized by: Ok Adler DO Consent: Consent obtained: Verbal Consent given by: Patient Risks discussed: Bleeding, incomplete drainage, pain and infection Alternatives discussed: Delayed treatment and referral [place] protocol: Patient identity confirmed: Verbally with patient [...] Wound treatment: Wound left open Packing materials: 2 in gauze Amount 1/2: 6in Post-procedure details: Procedure completion: Tolerated well, no immediate complications [facility] Absolute lymphocyte countOrd ered By: Jo Dumont on 05-23-2023 Lymphocytes Auto (Unsp spec) [#/Vol] 2.19 10*3/uL 0.83-4.51 [facility] Basophil percentageOrdered B y: Jo Dumont on 05-23-2023 Basophils/100 WBC (Bld) 1.0 % 0-1 [facility] Chloride [Moles/Vol] 106 mmol/L 98-107 [facility] Eosinophils/100 WBC (Bld) 6.9 % 0-5 [facility] Glucose [Mass/Vol] 158 mg/dL 74-106 [facility] Comment on above: Fasting Glucose resu lt greater than or equal to 126 mg/dL suggests DIABETES MELLITUS per A.D.A. criteria. Neutrophils (Bld) [#/Vol] 4.3 10*3/uL 2.0-7.7 [facility] Neutrophils/100 WBC (Bld) 55.7 % 47-70 [facility] Potassium [Moles/Vol] 3.9 mmol/L 3.5-5.[address] [facility] Sodium [Moles/Vol] 137 mmol/L 136-145 [facility] WBC (Bld) [#/Vol] 7.7 10*3/uL 4.4-11.0 [facility] Blood erythrocytes count (nu mber/volume)Ordered By: Jo Dumont on 05-23-2023 RBC (Bld) [#/Vol] 5.89 10*6/uL 4.6-6.2 [facility] Blood hemoglobin measurement (mass/volume)Ordered By: Jo Dumont on 05-23-2023 Hemoglobin (Bld) [Mass/Vol] 17.4 g/dL 13.0-16.5 [facility] Blood lymphocytes/100 leukoc ytesOrdered By: Jo Dumont on 05-23-2023 Lymphocytes/100 WBC (Bld) 28.4 % 19-41 [facility] Blood monocytes/100 leukocyt esOrdered By: Jo Dumont on 05-23-2023 Monocytes/100 WBC (Bld) 7.5 % 0-10 [facility] Blood platelet mean volumeOr dered By: Jo Dumont on 05-23-2023 Platelet mean volume (Bld) [Entitic vol] 9.2 fL 6.2-12.0 [facility] Determination of erythrocyte mean corpuscular volume (MCV)Ordered By: Jo Dumont on 05-23-2023 MCV (RBC) [Entitic vol] 90.8 fL 80-94 [facility] Hematocrit Auto (Bld) [Volum e fraction]Ordered By: Jo Dumont on 05-23-2023 Hematocrit (Bld) [Volume fraction] 53.5 % 40-54 [facility] Laboratory - Chemistry and C hemistry - challengeOrdered By: Jo Dumont on 05-23-2023 CO2 [Moles/Vol] 25.0 mmol/L 21.0-32.0 [facility] Urea nitrogen/Creatinine [Mass ratio] 8.6 mg/mg 10-20 [facility] Laboratory - Hematology and Cell countsOrdered By: Jo Dumont on 05-23-2023 Erythrocyte distribution width (RBC) [Entitic vol] 47.0 fL 35.1-43.9 [facility] Erythrocyte distribution width (RBC) [Ratio] 14.1 % 11.6-14.6 [facility] Immature granulocytes/100 WBC (Bld) 0.500 % 0.0-0.9 [facility] Comment on above: IG% - Immature Granu locytes (promyelocytes, myelocytes and metamyelocytes) > 1% indicates that a LEFT SHIFT is Present. MCH (RBC) [Entitic mass] 29.5 pg 27.0-32.0 [facility] Nucleated RBC/100 WBC (Bld) [Ratio] 0 % 0-5 [facility] MCHC Auto (RBC) [Mass/Vol]Or dered By: Jo Dumont on 05-23-2023 MCHC (RBC) [Mass/Vol] 32.5 g/dL 32-[address] [facility] No Panel InformationOrdered By: [facility] Dumont on 05-23-2023 Estimated Creatinine Clearance Calc 103.47 ml/min [facility] Estimated GFR (MDRD) Amer 115 mL/min >60 [facility] Comment on above: GFR Calc Estimated GFR (MDRD) Non-Af Amer 95 mL/min >60 [facility] Comment on above: Non- GFR Calc Platelets bldOrdered By: Eulalia norman Julia on 05-23-2023 Platelets (Bld) [#/Vol] 282 10*3/uL 150-450 [facility] Serum or plasma calcium branden urement (mass/volume)Ordered By: Rem Ungnicole on 05-23-2023 Calcium [Mass/Vol] 9.1 mg/dL 8.5-10.1 [facility] Serum or plasma creatinine m easurement (mass/volume)Ordered By: Rem Julia on 05-23-2023 Creatinine [Mass/Vol] 0.93 mg/dL 0.70-1.[address] [facility] Comment on above: The validity of the calculated GFR & GFRAA in patients over 70 years has not been determined. Clinical correlation is essential. Serum or plasma urea nitroge n measurement (mass/volume)Ordered By: Rem Julia on 05-23-2023 Urea nitrogen [Mass/Vol] 8 mg/dL 7-18 [facility] Thin prep Papanicolaou smear with manual screeningOrdered By: Remus Vonicole on 05-23-2023 Thin prep Papanicolaou smear with manual screening 6 5-15 [facility] POCT HEMOGLOBIN A1Con 2022 HbA1c (Bld) [Mass fraction] 6.5 % Abnormal 4.7 - 5.6 % [facility] Interpretation and review of laboratory results Abnormal [facility] Absolute lymphocyte countOrd ered By: Dr. Dick on 01-24-2023 Lymphocytes Auto (Unsp spec) [#/Vol] 2.10 10*3/uL 0.83-4.51 [facility] Basophil percentageOrdered B y: Dr. Dick on 01-24-2023 Basophils/100 WBC (Bld) 0.9 % 0-1 [facility] Chloride [Moles/Vol] 106 mmol/L 98-107 [facility] Eosinophils/100 WBC (Bld) 4.1 % 0-5 [facility] Glucose [Mass/Vol] 139 mg/dL 74-106 [facility] Comment on above: Fasting Glucose resu lt greater than or equal to 126 mg/dL suggests DIABETES MELLITUS per A.D.A. criteria. Neutrophils (Bld) [#/Vol] 5.6 10*3/uL 2.0-7.7 [facility] Neutrophils/100 WBC (Bld) 62.9 % 47-70 [facility] Potassium [Moles/Vol] 3.3 mmol/L 3.5-5.[address] [facility] Sodium [Moles/Vol] 136 mmol/L 136-145 [facility] WBC (Bld) [#/Vol] 8.9 10*3/uL 4.4-11.0 [facility] Blood erythrocytes count (nu mber/volume)Ordered By: Dr. Dick on 01-24-2023 RBC (Bld) [#/Vol] 5.46 10*6/uL 4.6-6.2 [facility] Blood hemoglobin measurement (mass/volume)Ordered By: Dr. Dick on 01-24-2023 Hemoglobin (Bld) [Mass/Vol] 16.1 g/dL 13.0-16.5 [facility] Blood lymphocytes/100 leukoc ytesOrdered By: Dr. Dick on 01-24-2023 Lymphocytes/100 WBC (Bld) 23.7 % 19-41 [facility] Blood monocytes/100 leukocyt esOrdered By: Dr. Dick on 01-24-2023 Monocytes/100 WBC (Bld) 7.9 % 0-10 [facility] Blood platelet mean volumeOr dered By: Dr. Dick on 01-24-2023 Platelet mean volume (Bld) [Entitic vol] 9.3 fL 6.2-12.0 [facility] Determination of erythrocyte mean corpuscular volume (MCV)Ordered By: Dr. Dick on 01-24-2023 MCV (RBC) [Entitic vol] 89.2 fL 80-94 [facility] Hematocrit Auto (Bld) [Volum e fraction]Ordered By: Dr. Dick on 01-24-2023 Hematocrit (Bld) [Volume fraction] 48.7 % 40-54 [facility] Laboratory - Chemistry and C hemistry - challengeOrdered By: Dr. Dick on 01-24-2023 CO2 [Moles/Vol] 25.0 mmol/L 21.0-32.0 [facility] Urea nitrogen/Creatinine [Mass ratio] 11.6 mg/mg 10-20 [facility] Laboratory - Drug toxicology Ordered By: Dr. Dick on 01-24-2023 Amphetamines Ql (U) Positive <1000 ng/mL [facility] Benzodiazepines Ql (U) Negative < 200 ng/mL [facility] Cannabinoids Screen Ql (U) Positive < 50 ng/mL [facility] Cocaine Ql (U) Negative < 300 ng/mL [facility] Opiates Ql (U) Negative < 300 ng/mL [facility] Laboratory - Hematology and Cell countsOrdered By: Dr. Dick on 01-24-2023 Erythrocyte distribution width (RBC) [Entitic vol] 43.9 fL 35.1-43.9 [facility] Erythrocyte distribution width (RBC) [Ratio] 13.5 % 11.6-14.6 [facility] Immature granulocytes/100 WBC (Bld) 0.500 % 0.0-0.9 [facility] Comment on above: IG% - Immature Granu locytes (promyelocytes, myelocytes and metamyelocytes) > 1% indicates that a LEFT SHIFT is Present. MCH (RBC) [Entitic mass] 29.5 pg 27.0-32.0 [facility] Nucleated RBC/100 WBC (Bld) [Ratio] 0 % 0-5 [facility] MCHC Auto (RBC) [Mass/Vol]Or dered By: Dr. Dick on 01-24-2023 MCHC (RBC) [Mass/Vol] 33.1 g/dL 32-[address] [facility] No Panel InformationOrdered By: Dr. Dick on 01-24-2023 MDMA (Ecstasy) Screen Negative < 500 ng/mL [facility] Urine Barbiturates Screen Negative < 200 ng/mL [facility] Urine Drug Screen Comment [facility] Comment on above: CONFIRMATORY TESTING FOR [...] Methadone Screen Negative < 300 ng/mL [facility] Estimated Creatinine Clearance Calc 113.04 ml/min [facility] Estimated GFR (MDRD) Amer 125 mL/min >60 [facility] Comment on above: GFR Calc Estimated GFR (MDRD) Non-Af Amer 103 mL/min >60 [facility] Comment on above: Non- GFR Calc Ethyl Alcohol Level < 3.0 mg/dL [facility] Comment on above: The serum:whole bloo d ethanol ratio is approximately 1.14and varies slightly with hematocrit. Medical Alcohol reference interval and critical value innon-tolerant individuals; 50 - 100 Impairment 100 Intoxication 100 - 250 Severe Poisoning 250 - 400 Deep/possible fatal coma Platelets bldOrdered By: Dr. Dick on 01-24-2023 Platelets (Bld) [#/Vol] 278 10*3/uL 150-450 [facility] Serum or plasma calcium branden urement (mass/volume)Ordered By: Dr. Dick on 01-24-2023 Calcium [Mass/Vol] 8.8 mg/dL 8.5-10.1 [facility] Serum or plasma creatinine m easurement (mass/volume)Ordered By: Dr. Dick on 01-24-2023 Creatinine [Mass/Vol] 0.86 mg/dL 0.70-1.[address] [facility] Comment on above: The validity of the calculated GFR & GFRAA in patients over 70 years has not been determined. Clinical correlation is essential. Serum or plasma urea nitroge n measurement (mass/volume)Ordered By: Dr. Dick on 01-24-2023 Urea nitrogen [Mass/Vol] 10 mg/dL 7-18 [facility] Thin prep Papanicolaou smear with manual screeningOrdered By: Dr. iDck on 01-24-2023 Thin prep Papanicolaou smear with manual screening 5 5-15 [facility] Urine phencyclidine (PCP) de tectionOrdered By: Dr. Dick on 01-24-2023 Phencyclidine Ql (U) Negative < 25 ng/mL [facility] CBC AND ELECTRONIC DIFFon Basophils (Bld) [#/Vol] 0.08 10*3/uL 0.00 - 0.09 K/uL [facility] Basophils/100 WBC (Bld) 0.9 % [facility] Differential cell count method Nom (Bld) Electronic Differential [facility] Eosinophils (Bld) [#/Vol] 0.52 10*3/uL High 0.00 - 0.48 K/uL [facility] Eosinophils/100 WBC (Bld) 5.9 % [facility] Erythrocyte distribution width (RBC) [Ratio] 13.8 % 10.9 - 14.3 % [facility] Hematocrit (Bld) [Volume fraction] 45.6 % 39.6 - 48.8 % [facility] Hemoglobin (Bld) [Mass/Vol] 15.5 g/dL 13.4 - 16.8 g/dL [facility] Immature granulocytes (Bld) [#/Vol] 0.05 10*3/uL NINF - 0.07 K/uL [facility] Immature granulocytes/100 WBC (Bld) 0.6 % [facility] Interpretation and review of laboratory results Abnormal [facility] Lymphocytes (Bld) [#/Vol] 2.24 10*3/uL 0.83 - 3.57 K/uL [facility] Lymphocytes/100 WBC (Bld) 25.4 % [facility] MCH (RBC) [Entitic mass] 29.8 pg 26.1 - 33.3 pg [facility] MCHC (RBC) [Mass/Vol] 34.0 g/dL 31.9 - 36.5 g/dL [facility] MCV (RBC) [Entitic vol] 87.5 fL 79.0 - 94.5 fL [facility] Monocytes (Bld) [#/Vol] 0.77 10*3/uL 0.24 - 0.93 K/uL [facility] Monocytes/100 WBC (Bld) 8.7 % [facility] Neutrophils (Bld) [#/Vol] 5.15 10*3/uL 1.57 - 6.19 K/uL [facility] Nucleated RBC/100 WBC (Bld) [Ratio] 0.0 % [facility] Platelet mean volume (Bld) [Entitic vol] 8.9 fL 8.7 - 12.3 fL [facility] Platelets (Bld) [#/Vol] 327 10*3/uL 146 - 337 K/uL [facility] RBC (Bld) [#/Vol] 5.21 10*6/uL [facility] Segmented neutrophils/100 WBC (Bld) 58.5 % [facility] WBC (Bld) [#/Vol] 8.81 10*3/uL 3.73 - 10.10 K/uL [facility] CMPN WITHOUT GLUCOSEon 10-27 Albumin [Mass/Vol] 4.2 g/dL 3.5 - 5.0 g/dL [facility] ALP [Catalytic activity/Vol] 113 U/L 32 - 126 U/L [facility] ALT [Catalytic activity/Vol] 84 U/L High 10 - 52 U/L [facility] Anion gap [Moles/Vol] 12 mmol/L 7 - 17 mmol/L [facility] AST [Catalytic activity/Vol] 45 U/L High 10 - 39 U/L [facility] Bilirubin [Mass/Vol] 0.4 mg/dL NINF - 1.5 mg/dL [facility] Calcium [Mass/Vol] 9.4 mg/dL 8.6 - 10. 5 mg/dL [facility] Chloride [Moles/Vol] 100 mmol/L 98 - 10 8 mmol/L [facility] CO2 [Moles/Vol] 24 mmol/L 21 - 31 mmol/L [facility] Creatinine [Mass/Vol] 0.86 mg/dL 0.70 - 1.30 mg/dL [facility] GFR/1.73 sq M.predicted CKD-EPI (S/P/Bld) [Vol rate/Area] - PINF [facility] Comment on above: Reported eGFR is bas ed on the CKD-EPI 2020 equation using creatinine, age, and sex. Interpretation and review of laboratory results Abnormal [facility] Potassium [Moles/Vol] 4.0 mmol/L 3.5 - 5.0 mmol/L [facility] Protein [Mass/Vol] 7.4 g/dL 6.4 - 8.3 g/dL [facility] Sodium [Moles/Vol] 132 mmol/L Low 135 - 145 mmol/L [facility] Urea nitrogen [Mass/Vol] 12 mg/dL 7 - 25 mg/dL [facility] Urea nitrogen/Creatinine [Mass ratio] 14 mg/mg [facility] LACTATE DEHYDROGENASEon 10-16 Interpretation and review of laboratory results Normal [facility] LDH Lactate to pyruvate reaction [Catalytic activity/Vol] 162 U/L 100 - 190 U/L [facility] No Panel Informationon 10-27 [facility] MR Ankle - left WO contrasto n [...] the third and fourth proximal metatarsal bones. [facility] Radiology Study observation (narrative) [facility] MR Ankle - left WO contrastO rdered By: Jean Marie Arana on 10-06-2022 [facility] Work Phone: [id number] ACTIVITYOrdered By: Mahogany Rowley on 07-22-2022 [id number] Inhibitor Not Indicated [facility] vWf cleaving protease actual/normal Chromogenic method (PPP) [Rel catalytic activity/Vol] 88 % >=40 [facility] Comment on above: [id number] activity is measured by chromogenic ELLIE (enzyme-linked immunosorbent assay). Severe deficiencies of [id number] (activity <10%) appear to be a relatively [...] Some literature also suggests serial measurement of [id number] activity levels may assist clinicians in monitoring TTP patients and provide prognostic value in prediction of TTP relapses. When interpreting the serological results, the history of the sample has to be taken into account. This test was developed and its performance characteristics determined by [facility] at [facility]. It has not been cleared or approved by the FDA. The laboratory is regulated under CLIA as qualified to perform high-complexity testing. This test is used for clinical purposes. It should not be regarded as investigational or for research. [facility] CBC AND ELECTRONIC DIFFon Basophils (Bld) [#/Vol] 0.10 10*3/uL High 0.00 - 0.09 K/uL [facility] Basophils/100 WBC (Bld) 1.2 % [facility] Differential cell count method Nom (Bld) Electronic Differential [facility] Eosinophils (Bld) [#/Vol] 0.53 10*3/uL High 0.00 - 0.48 K/uL [facility] Eosinophils/100 WBC (Bld) 6.5 % [facility] Erythrocyte distribution width (RBC) [Ratio] 13.7 % 10.9 - 14.3 % [facility] Hematocrit (Bld) [Volume fraction] 46.7 % 39.6 - 48.8 % [facility] Hemoglobin (Bld) [Mass/Vol] 16.0 g/dL 13.4 - 16.8 g/dL [facility] Immature granulocytes (Bld) [#/Vol] 0.06 10*3/uL <=0.07 [facility] Immature granulocytes/100 WBC (Bld) 0.7 % [facility] Interpretation and review of laboratory results Abnormal [facility] Lymphocytes (Bld) [#/Vol] 2.39 10*3/uL 0.83 - 3.57 K/uL [facility] Lymphocytes/100 WBC (Bld) 29.5 % [facility] MCH (RBC) [Entitic mass] 30.3 pg 26.1 - 33.3 pg [facility] MCHC (RBC) [Mass/Vol] 34.3 g/dL 31.9 - 36.5 g/dL [facility] MCV (RBC) [Entitic vol] 88.4 fL 79.0 - 94.5 fL [facility] Monocytes (Bld) [#/Vol] 0.63 10*3/uL 0.24 - 0.93 K/uL [facility] Monocytes/100 WBC (Bld) 7.8 % [facility] Neutrophils (Bld) [#/Vol] 4.40 10*3/uL 1.57 - 6.19 K/uL [facility] Nucleated RBC/100 WBC (Bld) [Ratio] 0.0 % <=0.2 /100 WBC [facility] Platelet mean volume (Bld) [Entitic vol] 9.0 fL 8.7 - 12.3 fL [facility] Platelets (Bld) [#/Vol] 329 10*3/uL 146 - 337 K/uL [facility] RBC (Bld) [#/Vol] 5.28 10*6/uL [facility] Segmented neutrophils/100 WBC (Bld) 54.3 % [facility] WBC (Bld) [#/Vol] 8.11 10*3/uL 3.73 - 10.10 K/uL [facility] CMPN WITHOUT GLUCOSEon 07-21 Albumin [Mass/Vol] 4.0 g/dL 3.5 - 5.0 g/dL [facility] ALP [Catalytic activity/Vol] 115 U/L 32 - 126 U/L [facility] ALT [Catalytic activity/Vol] 40 U/L 10 - 52 U/L [facility] Anion gap [Moles/Vol] 9 mmol/L 7 - 17 mmol/L [facility] AST [Catalytic activity/Vol] 23 U/L 10 - 39 U/L [facility] Bilirubin [Mass/Vol] 0.3 mg/dL <1.5 [facility] Calcium [Mass/Vol] 8.9 mg/dL 8.6 - 10. 5 mg/dL [facility] Chloride [Moles/Vol] 104 mmol/L 98 - 10 8 mmol/L [facility] CO2 [Moles/Vol] 24 mmol/L 21 - 31 mmol/L [facility] Creatinine [Mass/Vol] 0.76 mg/dL 0.70 - 1.30 mg/dL [facility] GFR/1.73 sq M.predicted CKD-EPI (S/P/Bld) [Vol rate/Area] >90 >=60 mL/min/1.73 m2 [facility] Comment on above: Reported eGFR is bas ed on the CKD-EPI 2020 equation using creatinine, age, and sex. Interpretation and review of laboratory results Abnormal [facility] Potassium [Moles/Vol] 4.4 mmol/L 3.5 - 5.0 mmol/L [facility] Protein [Mass/Vol] 7.2 g/dL 6.4 - 8.3 g/dL [facility] Sodium [Moles/Vol] 133 mmol/L Low 135 - 145 mmol/L [facility] Urea nitrogen [Mass/Vol] 10 mg/dL 7 - 25 mg/dL [facility] Urea nitrogen/Creatinine [Mass ratio] 13 mg/mg [facility] HEMOGLOBIN [id number] By: Kia Nickerson on 07-21-2022 Average glucose Estimated from glycated hemoglobin (Bld) [Mass/Vol] 128 mg/dL [facility] HbA1c (Bld) [Mass fraction] 6.1 % High 4.7 - 5.6 % [facility] Interpretation and review of laboratory results Abnormal [facility] LACTATE DEHYDROGENASEon Interpretation and review of laboratory results Normal [facility] LDH Lactate to pyruvate reaction [Catalytic activity/Vol] 145 U/L 100 - 190 U/L [facility] LIPID PANEL WITH REFLEX TO M EASURED LDLon 07-21-2022 Cholesterol [Mass/Vol] 136 mg/dL <200 [facility] Comment on above: [<200 mg/dL: Desirab le] [200-239 mg/dL: Borderline High] [>239 mg/dL: High] Cholesterol in HDL [Mass/Vol] 27 mg/dL Low >=40 [facility] Comment on above: [<40 mg/dL: Low (Hig h Risk)] [>59 mg/dL: High (Low Risk)] Cholesterol in HDL [Mass/Vol] 109 mg/dL <130 [facility] Cholesterol in LDL [Mass/Vol] 71 mg/dL 0 - 99 mg/dL [facility] Comment on above: [<100 mg/dL: Optimal ] [100-129 mg/dL: Near Optimal] [130-159 mg/dL: Borderline High] [160-189 mg/dL: High] [>189 mg/dL: Very High] Cholesterol.total/Nela sterol in HDL [Mass ratio] 5.0 {ratio} High <4.5 [facility] Interpretation and review of laboratory results Abnormal [facility] Triglyceride [Mass/Vol] 189 mg/dL High <150 [facility] Comment on above: [<150 mg/dL: Desirab le] [150-199 mg/dL: Borderline] [200-499 mg/dL: High] [>500 mg/dL: Very High] [facility] No Panel Informationon 07-21 [facility] [id number] ACTIVITYOrdered By: Mahogany Rowley on 04-15-2022 [id number] Inhibitor Not Indicated [facility] vWf cleaving protease actual/normal Chromogenic method (PPP) [Rel catalytic activity/Vol] 81 % >=40 [facility] Comment on above: [id number] activity is measured by chromogenic ELLIE (enzyme-linked immunosorbent assay). Severe deficiencies of [id number] (activity <10%) appear to be a relatively [...] Some literature also suggests serial measurement of [id number] activity levels may assist clinicians in monitoring TTP patients and provide prognostic value in prediction of TTP relapses. When interpreting the serological results, the history of the sample has to be taken into account. This test was developed and its performance characteristics determined by [facility]. It has not been cleared or approved by the FDA. The laboratory is regulated under CLIA as qualified to perform high-complexity testing. This test is used for clinical purposes. It should not be regarded as investigational or for research. [facility] CBC AND ELECTRONIC DIFFon Basophils (Bld) [#/Vol] 0.09 10*3/uL 0.00 - 0.09 K/uL [facility] Basophils/100 WBC (Bld) 1.0 % [facility] Differential cell count method Nom (Bld) Electronic Differential [facility] Eosinophils (Bld) [#/Vol] 0.64 10*3/uL High 0.00 - 0.48 K/uL [facility] Eosinophils/100 WBC (Bld) 7.0 % [facility] Erythrocyte distribution width (RBC) [Ratio] 14.1 % 10.9 - 14.3 % [facility] Hematocrit (Bld) [Volume fraction] 48.1 % 39.6 - 48.8 % [facility] Hemoglobin (Bld) [Mass/Vol] 16.2 g/dL 13.4 - 16.8 g/dL [facility] Immature granulocytes (Bld) [#/Vol] 0.04 10*3/uL <=0.07 [facility] Immature granulocytes/100 WBC (Bld) 0.4 % [facility] Interpretation and review of laboratory results Abnormal [facility] Lymphocytes (Bld) [#/Vol] 2.26 10*3/uL 0.83 - 3.57 K/uL [facility] Lymphocytes/100 WBC (Bld) 24.7 % [facility] MCH (RBC) [Entitic mass] 29.8 pg 26.1 - 33.3 pg [facility] MCHC (RBC) [Mass/Vol] 33.7 g/dL 31.9 - 36.5 g/dL [facility] MCV (RBC) [Entitic vol] 88.4 fL 79.0 - 94.5 fL [facility] Monocytes (Bld) [#/Vol] 0.77 10*3/uL 0.24 - 0.93 K/uL [facility] Monocytes/100 WBC (Bld) 8.4 % [facility] Neutrophils (Bld) [#/Vol] 5.34 10*3/uL 1.57 - 6.19 K/uL [facility] Nucleated RBC/100 WBC (Bld) [Ratio] 0.0 % <=0.2 /100 WBC [facility] Platelet mean volume (Bld) [Entitic vol] 9.0 fL 8.7 - 12.3 fL [facility] Platelets (Bld) [#/Vol] 315 10*3/uL 146 - 337 K/uL [facility] RBC (Bld) [#/Vol] 5.44 10*6/uL [facility] Segmented neutrophils/100 WBC (Bld) 58.5 % [facility] WBC (Bld) [#/Vol] 9.14 10*3/uL 3.73 - 10.10 K/uL [facility] CMPN WITHOUT GLUCOSEon 04-14 Albumin [Mass/Vol] 4.3 g/dL 3.5 - 5.0 g/dL [facility] ALP [Catalytic activity/Vol] 101 U/L 32 - 126 U/L [facility] ALT [Catalytic activity/Vol] 74 U/L High 10 - 52 U/L [facility] Anion gap [Moles/Vol] 11 mmol/L 7 - 17 mmol/L [facility] AST [Catalytic activity/Vol] 49 U/L High 10 - 39 U/L [facility] Bilirubin [Mass/Vol] 0.5 mg/dL <1.5 [facility] Calcium [Mass/Vol] 9.2 mg/dL 8.6 - 10. 5 mg/dL [facility] Chloride [Moles/Vol] 100 mmol/L 98 - 10 8 mmol/L [facility] CO2 [Moles/Vol] 25 mmol/L 21 - 31 mmol/L [facility] Creatinine [Mass/Vol] 0.82 mg/dL 0.70 - 1.30 mg/dL [facility] GFR/1.73 sq M.predicted CKD-EPI (S/P/Bld) [Vol rate/Area] >90 >=60 mL/min/1.73 m2 [facility] Comment on above: Reported eGFR is bas ed on the CKD-EPI 2020 equation using creatinine, age, and sex. Interpretation and review of laboratory results Abnormal [facility] Potassium [Moles/Vol] 3.6 mmol/L 3.5 - 5.0 mmol/L [facility] Protein [Mass/Vol] 7.5 g/dL 6.4 - 8.3 g/dL [facility] Sodium [Moles/Vol] 132 mmol/L Low 135 - 145 mmol/L [facility] Urea nitrogen [Mass/Vol] 11 mg/dL 7 - 25 mg/dL [facility] Urea nitrogen/Creatinine [Mass ratio] 13 mg/mg [facility] LACTATE DEHYDROGENASEon 03-18 Interpretation and review of laboratory results Normal [facility] LDH Lactate to pyruvate reaction [Catalytic activity/Vol] 155 U/L 100 - 190 U/L [facility] No Panel Informationon 04-14 [facility] HEMOGLOBIN [id number] By: Simba Ortiz on 03-30-2022 Average glucose Estimated from glycated hemoglobin (Bld) [Mass/Vol] 134 mg/dL [facility] HbA1c (Bld) [Mass fraction] 6.3 % High 4.7 - 5.6 % [facility] Interpretation and review of laboratory results Abnormal [facility] XR Foot - right 3 Viewson [...] first MTP joint and third DIP joint. [facility] Radiology Study observation (narrative) [facility] XR Foot - right 3 ViewsOrder ed By: Jean Marie Arana on 02-08-2022 [facility] Work Phone: XR Spine Lumbar and Sacrum [...] I have reviewed and approved this report. [facility] Radiology Study observation (narrative) [facility] XR Spine Lumbar and Sacrum 5 ViewsOrdered By: Dionne Rod on 01-27-2022 [facility] Work Phone: Vital Signs Date Time Vital Sign Value Performing Clinician Facility 08-07-2025 08:18-0400 Body mass index (BMI) [Ratio] 43.62 kg/m2 Chana Cejao [employer] Work Phone: [facility] 08-07-2025 08:18-0400 Body temperature 98.01 [degF] Chana Robles [employer]ARM[employer]Y MANAGER Work Phone: [facility] 08-07-2025 08:18-0400 Body weight 133.99 kg Chana Robles [employer]ARM[employer] MANAGER Work Phone: [facility] 08-07-2025 08:18-0400 Diastolic blood pressure 69 mm[Hg] Chana Cejao [employer]PHARMAC[employer] MANAGER Work Phone: [facility] 08-07-2025 08:18-0400 Heart rate 85 /min Chana Robles [employer]ARM[employer] MANAGER Work Phone: [facility] 08-07-2025 08:18-0400 Respiratory rate 18 /min Chana Robles [employer]ARM[employer] MANAGER Work Phone: [facility] 08-07-2025 08:18-0400 SaO2% (BldA) [Mass fraction] 97 % Chana Robles [employer]ARM[employer] MANAGER Work Phone: [facility] 08-07-2025 08:18-0400 Systolic blood pressure 116 mm[Hg] Chana Cejao [employer]PHARMACY MANAGER Work Phone: [facility] 06-10-2025 08:36-0400 Body height 175.[address] Katia Belle MD Work Phone: [facility] 06-10-2025 08:36-0400 Body mass index (BMI) [Ratio] 44.3 kg/m2 Dr. Katia Belle MD Work Phone: [facility] 06-10-2025 08:36-0400 Body temperature 97 [degF] Dr. Katia Belle MD Work Phone: [facility] 06-10-2025 08:36-0400 Body weight 136.[address] Katia Belle MD Work Phone: [facility] 06-10-2025 08:36-0400 Diastolic blood pressure 72 mm[Hg] Dr. Katia Belle MD Work Phone: [facility] 06-10-2025 08:36-0400 Heart rate 75 /min Dr. Katia Belle MD Work Phone: [facility] 06-10-2025 08:36-0400 Respiratory rate 16 /min Dr. Katia Belle MD Work Phone: [facility] 06-10-2025 08:36-0400 SaO2% (BldA) [Mass fraction] 96 % Dr. Katia Belle MD Work Phone: [facility] 06-10-2025 08:36-0400 Systolic blood pressure 126 mm[Hg] Dr. Katia Belle MD Work Phone: [facility] 04-29-2025 16:56-0400 Body temperature 97.6 [degF] Dr. Katia Belle MD Work Phone: [facility] 04-29-2025 16:56-0400 Diastolic blood pressure 71 mm[Hg] Dr. Katia Belle MD Work Phone: [facility] 04-29-2025 16:56-0400 Heart rate 81 /min Dr. Katia Belle MD Work Phone: [facility] 04-29-2025 16:56-0400 Respiratory rate 16 /min Dr. Katia Belle MD Work Phone: [facility] 04-29-2025 16:56-0400 SaO2% (BldA) [Mass fraction] 96 % Dr. Katia Belle MD Work Phone: [facility] 04-29-2025 16:56-0400 Systolic blood pressure 128 mm[Hg] Dr. Katia Belle MD Work Phone: [facility] 04-29-2025 14:47-0400 Body height 175.[address] Katia Belle MD Work Phone: [facility] 04-29-2025 14:47-0400 Body mass index (BMI) [Ratio] 43.8 kg/m2 Dr. Katia Belle MD Work Phone: [facility] 04-29-2025 14:47-0400 Body weight 134.[address] Katia Belle MD Work Phone: [facility] 04-24-2025 08:07-0400 Body mass index (BMI) [Ratio] 44.89 kg/m2 Abdirahman Rutherford MD Work Phone: [facility] 04-24-2025 08:07-0400 Body temperature 95 [degF] Abdirahman Rutherford MD Work Phone: [facility] 04-24-2025 08:07-0400 Body weight 137.89 kg Abdirahman Rutherford MD Work Phone: [facility] 04-24-2025 08:07-0400 Diastolic blood pressure 81 mm[Hg] Abdirahman Rutherford MD Work Phone: [facility] 04-24-2025 08:07-0400 Heart rate 79 /min Abdirahman Rutherford MD Work Phone: [facility] 04-24-2025 08:07-0400 Respiratory rate 16 /min Abdirahman Rutherford MD Work Phone: [facility] 04-24-2025 08:07-0400 SaO2% (BldA) [Mass fraction] 98 % Abdirahman Rutherford MD Work Phone: [facility] 04-24-2025 08:07-0400 Systolic blood pressure 137 mm[Hg] Abdirahman Rutherford MD Work Phone: [facility] 04-07-2025 23:44-0400 Body temperature 98.4 [degF] Dr. Katia Belle MD Work Phone: [facility] 04-07-2025 23:44-0400 Diastolic blood pressure 87 mm[Hg] Dr. Katia Belle MD Work Phone: [facility] 04-07-2025 23:44-0400 Heart rate 79 /min Dr. Katia Belle MD Work Phone: [facility] 04-07-2025 23:44-0400 Respiratory rate 16 /min Dr. Katia Belle MD Work Phone: [facility] 04-07-2025 23:44-0400 SaO2% (BldA) [Mass fraction] 99 % Dr. Katia Belle MD Work Phone: [facility] 04-07-2025 23:44-0400 Systolic blood pressure 123 mm[Hg] Dr. Katia Belle MD Work Phone: [facility] 04-07-2025 21:24-0400 Body height 175.[address] Katia Belle MD Work Phone: [facility] 04-07-2025 21:24-0400 Body mass index (BMI) [Ratio] 44.4 kg/m2 Dr. Katia Belle MD Work Phone: [facility] 04-07-2025 21:24-0400 Body weight 136.[address] Katia Belle MD Work Phone: [facility] 02-10-2025 14:49-0400 Body mass index (BMI) [Ratio] 44.1 kg/m2 Dr. Katia Belle MD Work Phone: [facility] 02-10-2025 14:49-0400 Body temperature 98.4 [degF] Dr. Katia Belle MD Work Phone: [facility] 02-10-2025 14:49-0400 Body weight 135.[address] Katia Belle MD Work Phone: [facility] 02-10-2025 14:49-0400 Diastolic blood pressure 80 mm[Hg] Dr. Katia Belle MD Work Phone: [facility] 02-10-2025 14:49-0400 Heart rate 79 /min Dr. Katia Belle MD Work Phone: [facility] 02-10-2025 14:49-0400 Respiratory rate 16 /min Dr. Katia Belle MD Work Phone: [facility] 02-10-2025 14:49-0400 SaO2% (BldA) [Mass fraction] 95 % Dr. Katia Belle MD Work Phone: [facility] 02-10-2025 14:49-0400 Systolic blood pressure 124 mm[Hg] Dr. Katia Belle MD Work Phone: [facility] 01-16-2025 10:00-0400 Body mass index (BMI) [Ratio] 44.86 kg/m2 Abdirahman Rutherford MD Work Phone: [facility] 01-16-2025 10:00-0400 Body temperature 97.5 [degF] Abdirahman Rutherford MD Work Phone: [facility] 01-16-2025 10:00-0400 Body weight 137.8 kg Abdirahman Rutherford MD Work Phone: [facility] 01-16-2025 10:00-0400 Diastolic blood pressure 73 mm[Hg] Abdirahman Rutherford MD Work Phone: [facility] 01-16-2025 10:00-0400 Heart rate 88 /min Abdirahman Rutherford MD Work Phone: [facility] 01-16-2025 10:00-0400 Respiratory rate 18 /min Abdirahman Rutherford MD Work Phone: [facility] 01-16-2025 10:00-0400 SaO2% (BldA) [Mass fraction] 95 % Abdirahman Rutherford MD Work Phone: [facility] 01-16-2025 10:00-0400 Systolic blood pressure 114 mm[Hg] Abdirahman Rutherford MD Work Phone: [facility] 09-26-2024 11:20-0500 Body mass index (BMI) [Ratio] 44.77 kg/m2 Abdirahman Rutherford MD Work Phone: [facility] 09-26-2024 11:20-0500 Body temperature 97.9 [degF] Abdirahman Rutherford MD Work Phone: [facility] 09-26-2024 11:20-0500 Body weight 137.53 kg Abdirahman Rutherford MD Work Phone: [facility] 09-26-2024 11:20-0500 Diastolic blood pressure 78 mm[Hg] Abdirahman Rutherford MD Work Phone: [facility] 09-26-2024 11:20-0500 Heart rate 85 /min Abdirahman Rutherford MD Work Phone: [facility] 09-26-2024 11:20-0500 Respiratory rate 18 /min Abdirahman Rutherford MD Work Phone: [facility] 09-26-2024 11:20-0500 SaO2% (BldA) [Mass fraction] 95 % Abdirahman Rutherford MD Work Phone: [facility] 09-26-2024 11:20-0500 Systolic blood pressure 124 mm[Hg] Abdirahman Rutherford MD Work Phone: [facility] 03-17-2024 14:58-0400 Body mass index (BMI) [Ratio] 38.4 kg/m2 Akbar Boogie MD Work Phone: [facility] 03-17-2024 14:58-0400 Body temperature 97.81 [degF] Akbar Boogie MD Work Phone: [facility] 03-17-2024 14:58-0400 Body weight 117.94 kg Akbar Boogie MD Work Phone: [facility] 03-17-2024 14:58-0400 Diastolic blood pressure 65 mm[Hg] Akbar Boogie MD Work Phone: [facility] 03-17-2024 14:58-0400 Heart rate 93 /min Akbar Boogie MD Work Phone: [facility] 03-17-2024 14:58-0400 Respiratory rate 16 /min Akbar Boogie MD Work Phone: [facility] 03-17-2024 14:58-0400 SaO2% (BldA) [Mass fraction] 100 % Akbar Boogie MD Work Phone: [facility] 03-17-2024 14:58-0400 Systolic blood pressure 119 mm[Hg] Akbar Boogie MD Work Phone: [facility] 02-25-2024 09:00-0400 Diastolic blood pressure 63 mm[Hg] Lois Clifford DO Work Phone: [facility] 02-25-2024 09:00-0400 Systolic blood pressure 135 mm[Hg] Lois Clifford DO Work Phone: [facility] 02-25-2024 08:40-0400 Body temperature 97.59 [degF] Lois Venessa DO Work Phone: [facility] 02-25-2024 08:40-0400 Heart rate 70 /min Lois Venessa DO Work Phone: [facility] 02-25-2024 08:40-0400 Respiratory rate 17 /min Lois M[place] DO Work Phone: [facility] 02-25-2024 08:40-0400 SaO2% (BldA) [Mass fraction] 94 % Lois Mccle[place] DO Work Phone: [facility] 02-25-2024 02:36-0400 Body height 175.3 cm Lois Mccle[place] DO Work Phone: [facility] 02-23-2024 13:30-0400 Body temperature 98.4 [degF] No Primary Care Physician [facility] 02-23-2024 13:30-0400 Diastolic blood pressure 100 mm[Hg] No Primary Care Physician [facility] 02-23-2024 13:30-0400 Heart rate 104 /min No Primary Care Physician [facility] 02-23-2024 13:30-0400 Respiratory rate 18 /min No Primary Care Physician [facility] 02-23-2024 13:30-0400 SaO2% (BldA) [Mass fraction] 94 % No Primary Care Physician [facility] 02-23-2024 13:30-0400 Systolic blood pressure 144 mm[Hg] No Primary Care Physician [facility] 02-23-2024 09:39-0400 Body height 175.26 cm No Primary Care Physician [facility] 02-23-2024 09:39-0400 Body weight 126.7 kg No Primary Care Physician [facility] 02-23-2024 06:27-0400 Body mass index (BMI) [Ratio] 41.2 kg/m2 No Primary Care Physician [facility] 02-23-2024 05:41-0400 Body temperature 98 [degF] No Primary Care Physician [facility] 02-23-2024 05:41-0400 Diastolic blood pressure 100 mm[Hg] No Primary Care Physician [facility] 02-23-2024 05:41-0400 Heart rate 89 /min No Primary Care Physician [facility] 02-23-2024 05:41-0400 Respiratory rate 16 /min No Primary Care Physician [facility] 02-23-2024 05:41-0400 SaO2% (BldA) [Mass fraction] 96 % No Primary Care Physician [facility] 02-23-2024 05:41-0400 Systolic blood pressure 148 mm[Hg] No Primary Care Physician [facility] 02-23-2024 04:39-0400 Body height 175.26 cm No Primary Care Physician [facility] 02-23-2024 04:39-0400 Body mass index (BMI) [Ratio] 41.2 kg/m2 No Primary Care Physician [facility] 02-23-2024 04:39-0400 Body weight 126.6 kg No Primary Care Physician [facility] 02-23-2024 02:28-0400 Body temperature 98 [degF] No Primary Care Physician [facility] 02-23-2024 02:28-0400 Diastolic blood pressure 78 mm[Hg] No Primary Care Physician [facility] 02-23-2024 02:28-0400 Heart rate 82 /min No Primary Care Physician [facility] 02-23-2024 02:28-0400 Respiratory rate 18 /min No Primary Care Physician [facility] 02-23-2024 02:28-0400 SaO2% (BldA) [Mass fraction] 97 % No Primary Care Physician [facility] 02-23-2024 02:28-0400 Systolic blood pressure 147 mm[Hg] No Primary Care Physician [facility] 02-22-2024 22:19-0400 Body height 175.26 cm No Primary Care Physician [facility] 02-22-2024 22:19-0400 Body mass index (BMI) [Ratio] 41.3 kg/m2 No Primary Care Physician [facility] 02-22-2024 22:19-0400 Body weight 127 kg No Primary Care Physician [facility] 02-15-2024 08:00-0400 Body mass index (BMI) [Ratio] 42.65 kg/m2 Edilia BOWEN Work Phone: [facility] 02-15-2024 08:00-0400 Body temperature 98.1 [degF] [facility] [employer] Work Phone: [facility] 02-15-2024 08:00-0400 Body weight 131 kg [facility] [employer] [facility] Work Phone: [facility] 02-15-2024 08:00-0400 Diastolic blood pressure 99 mm[Hg] [facility] [employer] [facility] Work Phone: [facility] 02-15-2024 08:00-0400 Heart rate 77 /min [facility] UM [employer]IST[employer]PHARMACY MANAGER Work Phone: [facility] 02-15-2024 08:00-0400 Respiratory rate 18 /min [facility] UM SPECIALIST-PHARMACY MANAGER Work Phone: [facility] 02-15-2024 08:00-0400 SaO2% (BldA) [Mass fraction] 94 % [facility] UM SPECIALIST-PHARMACY MANAGER Work Phone: [facility] 02-15-2024 08:00-0400 Systolic blood pressure 153 mm[Hg] [place] [employer] MA[employer]GER Work Phone: [facility] 01-04-2024 11:49-0400 Body mass index (BMI) [Ratio] 42.62 kg/m2 Abdirahman Rutherford MD Work Phone: [facility] 01-04-2024 11:49-0400 Body temperature 97.59 [degF] Abdirahman Rutherford MD Work Phone: [facility] 01-04-2024 11:49-0400 Body weight 130.91 kg Abdirahman Rutherford MD Work Phone: [facility] 01-04-2024 11:49-0400 Diastolic blood pressure 88 mm[Hg] Abdirahman Rutherford MD Work Phone: [facility] 01-04-2024 11:49-0400 Heart rate 91 /min Abdirahman Rutherford MD Work Phone: [facility] 01-04-2024 11:49-0400 Respiratory rate 18 /min Abdirahman Rutherford MD Work Phone: [facility] 01-04-2024 11:49-0400 SaO2% (BldA) [Mass fraction] 96 % Abdirahman Rutherford MD Work Phone: [facility] 01-04-2024 11:49-0400 Systolic blood pressure 137 mm[Hg] Abdirahman Rutherford MD Work Phone: [facility] 12-23-2023 05:21-0500 Body height 175.26 cm No Primary Care Physician [facility] 12-23-2023 05:21-0500 Body mass index (BMI) [Ratio] 42.4 kg/m2 No Primary Care Physician [facility] 12-23-2023 05:21-0500 Body temperature 97.9 [degF] No Primary Care Physician [facility] 12-23-2023 05:21-0500 Body weight 130.3 kg No Primary Care Physician [facility] 12-23-2023 05:21-0500 Diastolic blood pressure 99 mm[Hg] No Primary Care Physician [facility] 12-23-2023 05:21-0500 Systolic blood pressure 132 mm[Hg] No Primary Care Physician [facility] 12-12-2023 04:39-0500 Body temperature 98.1 [degF] No Primary Care Physician [facility] 12-12-2023 04:39-0500 Diastolic blood pressure 78 mm[Hg] No Primary Care Physician [facility] 12-12-2023 04:39-0500 Heart rate 85 /min No Primary Care Physician [facility] 12-12-2023 04:39-0500 Respiratory rate 16 /min No Primary Care Physician [facility] 12-12-2023 04:39-0500 SaO2% (BldA) [Mass fraction] 94 % No Primary Care Physician [facility] 12-12-2023 04:39-0500 Systolic blood pressure 111 mm[Hg] No Primary Care Physician [facility] 12-12-2023 04:01-0500 Body mass index (BMI) [Ratio] 42.5 kg/m2 No Primary Care Physician [facility] 12-12-2023 04:01-0500 Body weight 130.5 kg No Primary Care Physician [facility] 12-01-2023 10:31-0500 Body mass index (BMI) [Ratio] 42 kg/m2 No Primary Care Physician [facility] 12-01-2023 10:31-0500 Body weight 129.27 kg No Primary Care Physician [facility] 11-30-2023 04:55-0500 Body temperature 98.3 [degF] [facility] 11-30-2023 04:55-0500 Diastolic blood pressure 90 mm[Hg] [facility] 11-30-2023 04:55-0500 Heart rate 90 /min [facility] 11-30-2023 04:55-0500 Respiratory rate 18 /min [facility] 11-30-2023 04:55-0500 SaO2% (BldA) [Mass fraction] 98 % [facility] 11-30-2023 04:55-0500 Systolic blood pressure 140 mm[Hg] [facility] 11-30-2023 03:35-0500 Body height 175.26 cm [facility] 11-30-2023 03:35-0500 Body mass index (BMI) [Ratio] 42.6 kg/m2 [facility] 11-30-2023 03:35-0500 Body weight 130.9 kg [facility] 11-27-2023 04:30-0500 Body temperature 97.7 [degF] TOD ARROYO MD [facility] 11-27-2023 04:30-0500 Diastolic Blood Pressure Non-Invasive 80 mm[Hg] TOD ARROYO MD [facility] 11-27-2023 04:30-0500 Heart rate 99 /min TOD ARROYO MD [facility] 11-27-2023 04:30-0500 Respiratory rate 16 /min TOD ARROYO MD [facility] 11-27-2023 04:30-0500 Systolic Blood Pressure Non-Invasive 135 mm[Hg] TOD ARROYO MD [facility] 11-10-2023 04:14-0500 Body temperature 98.3 [degF] [facility] 11-10-2023 04:14-0500 Diastolic blood pressure 90 mm[Hg] [facility] 11-10-2023 04:14-0500 Heart rate 90 /min [facility] 11-10-2023 04:14-0500 Respiratory rate 18 /min [facility] 11-10-2023 04:14-0500 SaO2% (BldA) [Mass fraction] 98 % [facility] 11-10-2023 04:14-0500 Systolic blood pressure 156 mm[Hg] [facility] 11-10-2023 04:12-0500 Body height 175.26 cm [facility] 11-10-2023 04:12-0500 Body mass index (BMI) [Ratio] 42.5 kg/m2 [facility] 11-10-2023 04:12-0500 Body weight 130.5 kg [facility] 11-03-2023 09:44-0500 Body height 175.3 cm [facility] DO [facility] 11-03-2023 09:44-0500 Body temperature 97.52 [degF] NIDAL CHOUJAA DO [facility] 11-03-2023 09:44-0500 Body weight 127.3 kg CELINEAL CHOUJAA DO [facility] 11-03-2023 09:44-0500 Diastolic Blood Pressure Non-Invasive 91 mm[Hg] NIDAL CHOUJAA DO [facility] 11-03-2023 09:44-0500 Heart rate 83 /min NIDAL CHOUJAA DO [facility] 11-03-2023 09:44-0500 Respiratory rate 18 /min [facility] 11-03-2023 09:44-0500 Systolic Blood Pressure Non-Invasive 143 mm[Hg] [facility] DO [facility] 10-29-2023 13:09-0500 Body height 175.26 cm [facility] 10-29-2023 13:09-0500 Body mass index (BMI) [Ratio] 41.6 kg/m2 [facility] 10-29-2023 13:09-0500 Body temperature 96.7 [degF] [facility] 10-29-2023 13:09-0500 Body weight 127.91 kg [facility] 10-29-2023 13:09-0500 Diastolic blood pressure 72 mm[Hg] [facility] 10-29-2023 13:09-0500 Heart rate 92 /min [facility] 10-29-2023 13:09-0500 Respiratory rate 18 /min [facility] 10-29-2023 13:09-0500 SaO2% (BldA) [Mass fraction] 99 % [facility] 10-29-2023 13:09-0500 Systolic blood pressure 128 mm[Hg] [facility] 09-16-2023 14:18-0500 Body height 175.3 cm Ok Adler DO Work Phone: [facility] 09-16-2023 14:18-0500 Body mass index (BMI) [Ratio] 42.83 kg/m2 Ok Adler DO Work Phone: [facility] 09-16-2023 14:18-0500 Body temperature 98.1 [degF] Ok Sunshinerakola DO Work Phone: [facility] 09-16-2023 14:18-0500 Body weight 131.54 kg Ok Lucykola DO Work Phone: [facility] 09-16-2023 14:18-0500 Diastolic blood pressure 108 mm[Hg] Ok Sunshinerakola DO Work Phone: [facility] 09-16-2023 14:18-0500 Heart rate 99 /min Ok Lucykola DO Work Phone: [facility] 09-16-2023 14:18-0500 Respiratory rate 17 /min Ok Lucykola DO Work Phone: [facility] 09-16-2023 14:18-0500 SaO2% (BldA) [Mass fraction] 97 % Ok Barbozala DO Work Phone: [facility] 09-16-2023 14:18-0500 Systolic blood pressure 163 mm[Hg] Ok Jabarila DO Work Phone: [facility] 05-23-2023 12:49-0400 Diastolic blood pressure 91 mm[Hg] [facility] 05-23-2023 12:49-0400 Heart rate 68 /min [facility] 05-23-2023 12:49-0400 Respiratory rate 14 /min [facility] 05-23-2023 12:49-0400 SaO2% (BldA) [Mass fraction] 98 % [facility] 05-23-2023 12:49-0400 Systolic blood pressure 134 mm[Hg] [facility] 05-23-2023 10:49-0400 Body height 175.26 cm [facility] 05-23-2023 10:49-0400 Body mass index (BMI) [Ratio] 41.5 kg/m2 [facility] 05-23-2023 10:49-0400 Body temperature 96.7 [degF] [facility] 05-23-2023 10:49-0400 Body weight 127.59 kg [facility] 02-13-2023 09:57-0400 Body mass index (BMI) [Ratio] 40.87 kg/m2 [facility] 02-13-2023 09:57-0400 Body weight 134.63 kg [facility] Work Phone: [facility] 02-13-2023 09:57-0400 Diastolic blood pressure 88 mm[Hg] [facility] Work Phone: [facility] 02-13-2023 09:57-0400 Heart rate 88 /min [facility] Work Phone: [facility] 02-13-2023 09:57-0400 Systolic blood pressure 134 mm[Hg] Sonido [facility] Work Phone: [facility] 01-24-2023 05:22-0400 Respiratory rate 16 /min [facility] 01-23-2023 23:23-0400 Body height 175.26 cm [facility] 01-23-2023 23:23-0400 Body mass index (BMI) [Ratio] 43.1 kg/m2 [facility] 01-23-2023 23:23-0400 Body temperature 0 [degF] [facility] 01-23-2023 23:23-0400 Body weight 132.44 kg [facility] 10-27-2022 13:07-0500 Body height 181.5 cm Lonnie Ring [employer]PHARMACY MANAGER Work Phone: [facility] 10-27-2022 13:07-0500 Body mass index (BMI) [Ratio] 39.66 kg/m2 Lonnie Ring UM SPECIALIST-PHARMACY MANAGER Work Phone: [facility] 10-27-2022 13:07-0500 Body temperature 98.4 [degF] Lonnie Ring UM SPECIALIST-PHARMACY MANAGER Work Phone: [facility] 10-27-2022 13:07-0500 Body weight 130.64 kg Lonnie Ring UM SPECIALIST-PHARMACY MANAGER Work Phone: [facility] 10-27-2022 13:07-0500 Diastolic blood pressure 74 mm[Hg] Lonnie Mckeonantz UM SPECIALIST-PHARMACY MANAGER Work Phone: [facility] 10-27-2022 13:07-0500 Heart rate 106 /min Lonnie Bogantz UM SPECIALIST-PHARMACY MANAGER Work Phone: [facility] 10-27-2022 13:07-0500 Respiratory rate 18 /min Lonniedamon Mckeonantz UM SPECIALIST-PHARMACY MANAGER Work Phone: [facility] 10-27-2022 13:07-0500 SaO2% (BldA) [Mass fraction] 95 % Lonniedamon Mckeonantz UM SPECIALIST-PHARMACY MANAGER Work Phone: [facility] 10-27-2022 13:07-0500 Systolic blood pressure 122 mm[Hg] Lonnie Mckeonantz UM SPECIALIST-PHARMACY MANAGER Work Phone: [facility] 10-27-2022 09:01-0500 Body height 175.3 cm Abdirahman Rutherford MD Work Phone: [facility] 10-27-2022 09:01-0500 Body mass index (BMI) [Ratio] 42.65 kg/m2 Abdirahman Rutherford MD Work Phone: [facility] 10-27-2022 09:01-0500 Body temperature 98.49 [degF] Abdirahman Rutherford MD Work Phone: [facility] 10-27-2022 09:01-0500 Body weight 131 kg Abdirahman Rutherford MD Work Phone: [facility] 10-27-2022 09:01-0500 Diastolic blood pressure 79 mm[Hg] Abdirahman Rutherford MD Work Phone: [facility] 10-27-2022 09:01-0500 Heart rate 115 /min Abdirahman Rutherford MD Work Phone: [facility] 10-27-2022 09:01-0500 Respiratory rate 16 /min Abdirahman Rutherford MD Work Phone: [facility] 10-27-2022 09:01-0500 SaO2% (BldA) [Mass fraction] 96 % Abdirahman Rutherford MD Work Phone: [facility] 10-27-2022 09:01-0500 Systolic blood pressure 124 mm[Hg] Abdirahman Rutherford MD Work Phone: [facility] 10-18-2022 04:21-0500 Body height 175.26 cm [facility] Work Phone: 10-18-2022 04:21-0500 Body mass index (BMI) [Ratio] 42.3 kg/m2 [facility] 10-18-2022 04:21-0500 Body temperature 97.5 [degF] [facility] 10-18-2022 04:21-0500 Body weight 129.9 kg [facility] 10-18-2022 04:21-0500 Diastolic blood pressure 93 mm[Hg] [facility] 10-18-2022 04:21-0500 Heart rate 101 /min [facility] 10-18-2022 04:21-0500 Respiratory rate 15 /min [facility] 10-18-2022 04:21-0500 SaO2% (BldA) [Mass fraction] 95 % [facility] 10-18-2022 04:21-0500 Systolic blood pressure 144 mm[Hg] [facility] 10-09-2022 04:40-0500 Diastolic blood pressure 68 mm[Hg] [facility] 10-09-2022 04:40-0500 Heart rate 87 /min [facility] 10-09-2022 04:40-0500 Respiratory rate 16 /min [facility] 10-09-2022 04:40-0500 SaO2% (BldA) [Mass fraction] 97 % [facility] 10-09-2022 04:40-0500 Systolic blood pressure 140 mm[Hg] [facility] 10-09-2022 04:31-0500 Body height 175.26 cm [facility] Work Phone: 10-09-2022 04:31-0500 Body mass index (BMI) [Ratio] 43.1 kg/m2 [facility] 10-09-2022 04:31-0500 Body temperature 98.8 [degF] [facility] 10-09-2022 04:31-0500 Body weight 132.5 kg [facility] 07-21-2022 10:47-0400 Diastolic blood pressure 86 mm[Hg] Abdirahman Rutherford MD Work Phone: [facility] 07-21-2022 10:47-0400 Heart rate 89 /min Abdirahman Rutherford MD Work Phone: [facility] 07-21-2022 10:47-0400 Systolic blood pressure 126 mm[Hg] Abdirahman Rutherford MD Work Phone: [facility] 07-21-2022 09:48-0400 Body height 175.3 cm Abdirahman Rutherford MD Work Phone: [facility] 07-21-2022 09:48-0400 Body mass index (BMI) [Ratio] 43.56 kg/m2 Abdirahman Rutherford MD Work Phone: [facility] 07-21-2022 09:48-0400 Body temperature 97.81 [degF] Abdirahman Rutherford MD Work Phone: [facility] 07-21-2022 09:48-0400 Body weight 133.81 kg Abdirahman Rutherford MD Work Phone: [facility] 07-21-2022 09:48-0400 Respiratory rate 18 /min Abdirahman Rutherford MD Work Phone: [facility] 07-21-2022 09:48-0400 SaO2% (BldA) [Mass fraction] 96 % Abdirahman Rutherford MD Work Phone: [facility] 05-13-2022 08:59-0400 Body height 175.3 cm Fran Gaston MD Work Phone: [facility] 05-13-2022 08:59-0400 Body mass index (BMI) [Ratio] 42.83 kg/m2 Fran Gaston MD Work Phone: [facility] 05-13-2022 08:59-0400 Body temperature 96.91 [degF] Fran Gaston MD Work Phone: [facility] 05-13-2022 08:59-0400 Body weight 131.54 kg Fran Gaston MD Work Phone: [facility] 05-13-2022 08:59-0400 Heart rate 80 /min Fran Gaston MD Work Phone: [facility] 05-13-2022 08:59-0400 SaO2% (BldA) [Mass fraction] 97 % Fran Gaston MD Work Phone: [facility] 04-14-2022 08:36-0400 Body height 175.3 cm Abdirahman Rutherford MD Work Phone: [facility] 04-14-2022 08:36-0400 Body temperature 97.81 [degF] Abdirahman Rutherford MD Work Phone: [facility] 04-14-2022 08:36-0400 Diastolic blood pressure 83 mm[Hg] Abdirahman Rutherford MD Work Phone: [facility] 04-14-2022 08:36-0400 Heart rate 87 /min Abdirahman Rutherford MD Work Phone: [facility] 04-14-2022 08:36-0400 Respiratory rate 18 /min Abdirahman Rutherford MD Work Phone: [facility] 04-14-2022 08:36-0400 SaO2% (BldA) [Mass fraction] 96 % Abdirahman Rutherford MD Work Phone: [facility] 04-14-2022 08:36-0400 Systolic blood pressure 111 mm[Hg] Abdirahman Rutherford MD Work Phone: [facility] 03-30-2022 13:16-0400 Body height 175.3 cm Lonnie Bogantz UM SPECIALIST-PHARMACY MANAGER Work Phone: [facility] 03-30-2022 13:16-0400 Body mass index (BMI) [Ratio] 42.77 kg/m2 Lonnie Bogantz UM SPECIALIST-PHARMACY MANAGER Work Phone: [phone] [place] [address] 03-30-2022 13:16-0400 Body temperature 97.5 [degF] Lonnie Bogantz UM SPECIALIST-PHARMACY MANAGER Work Phone: 1(887)190-355348 [address] 03-30-2022 13:16-0400 Body weight 131.36 kg Lonnie Bogantz UM SPECIALIST-PHARMACY MANAGER Work Phone: 7(533)[phone] [address] 03-30-2022 13:16-0400 Diastolic blood pressure 80 mm[Hg] Lonnie Bogantz UM SPECIALIST-PHARMACY MANAGER Work Phone: [facility] 03-30-2022 13:16-0400 Heart rate 110 /min Lonnie Bogantz UM SPECIALIST-PHARMACY MANAGER Work Phone: [facility] 03-30-2022 13:16-0400 Respiratory rate 18 /min Lonnie Lindaantz UM SPECIALIST-PHARMACY MANAGER Work Phone: [facility] 03-30-2022 13:16-0400 SaO2% (BldA) [Mass fraction] 98 % Lonnie Ring UM SPECIALIST-PHARMACY MANAGER Work Phone: [facility] 03-30-2022 13:16-0400 Systolic blood pressure 120 mm[Hg] Lonnie Ring UM SPECIALIST-PHARMACY MANAGER Work Phone: [facility] 02-21-2022 18:09-0400 Body height 177.8 cm [facility] Work Phone: 02-21-2022 18:09-0400 Body mass index (BMI) [Ratio] 41.5 kg/m2 [facility] Work Phone: 02-21-2022 18:09-0400 Body temperature 97.4 [degF] [facility] Work Phone: 02-21-2022 18:09-0400 Body weight 131.54 kg [facility] Work Phone: 02-21-2022 18:09-0400 Diastolic blood pressure 82 mm[Hg] [facility] Work Phone: 02-21-2022 18:09-0400 Heart rate 86 /min [facility] Work Phone: 02-21-2022 18:09-0400 Respiratory rate 15 /min [facility] Work Phone: 02-21-2022 18:09-0400 SaO2% (BldA) [Mass fraction] 98 % [facility] Work Phone: 02-21-2022 18:09-0400 Systolic blood pressure 147 mm[Hg] [facility] Work Phone: 01-31-2022 15:07-0400 Body height 175.3 cm Lonnie Ring UM SPECIALIST-PHARMACY MANAGER Work Phone: [facility] 01-31-2022 15:07-0400 Body mass index (BMI) [Ratio] 44.75 kg/m2 Lonnie Ring UM SPECIALIST-PHARMACY MANAGER Work Phone: [facility] 01-31-2022 15:07-0400 Body temperature 98.29 [degF] Lonnie Ring UM SPECIALIST-PHARMACY MANAGER Work Phone: [facility] 01-31-2022 15:07-0400 Body weight 137.44 kg Lonnie Ring UM SPECIALIST-PHARMACY MANAGER Work Phone: [facility] 01-31-2022 15:07-0400 Diastolic blood pressure 74 mm[Hg] Lonnie Ring UM SPECIALIST-PHARMACY MANAGER Work Phone: [facility] 01-31-2022 15:07-0400 Heart rate 72 /min Lonnie Ring UM SPECIALIST-PHARMACY MANAGER Work Phone: [facility] 01-31-2022 15:07-0400 SaO2% (BldA) [Mass fraction] 99 % Lonnie Ring UM SPECIALIST-PHARMACY MANAGER Work Phone: [facility] 01-31-2022 15:07-0400 Systolic blood pressure 106 mm[Hg] Lonnie Ring UM SPECIALIST-PHARMACY MANAGER Work Phone: [facility] 01-27-2022 08:11-0400 Body height 175.3 cm Fran Gaston MD Work Phone: [facility] 01-27-2022 08:11-0400 Body mass index (BMI) [Ratio] 44.01 kg/m2 Fran Gaston MD Work Phone: [facility] 01-27-2022 08:11-0400 Body temperature 97 [degF] Fran Gaston MD Work Phone: [facility] 01-27-2022 08:11-0400 Body weight 135.17 kg Fran Gaston MD Work Phone: [facility] 01-13-2022 14:56-0400 Body mass index (BMI) [Ratio] 43.2 kg/m2 [facility] Work Phone: 01-13-2022 14:56-0400 Body temperature 97 [degF] [facility] Work Phone: 01-13-2022 14:56-0400 Body weight 133 kg [facility] Work Phone: 01-13-2022 14:56-0400 Diastolic blood pressure 97 mm[Hg] [facility] Work Phone: 01-13-2022 14:56-0400 Heart rate 88 /min [facility] Work Phone: 01-13-2022 14:56-0400 Respiratory rate 16 /min [facility] Work Phone: 01-13-2022 14:56-0400 SaO2% (BldA) [Mass fraction] 99 % [facility] Work Phone: 01-13-2022 14:56-0400 Systolic blood pressure 135 mm[Hg] [facility] Work Phone: 01-06-2022 20:04-0400 Diastolic blood pressure 90 mm[Hg] [facility] Work Phone: 01-06-2022 20:04-0400 Heart rate 97 /min [facility] Work Phone: 01-06-2022 20:04-0400 Respiratory rate 18 /min [facility] Work Phone: 01-06-2022 20:04-0400 Systolic blood pressure 158 mm[Hg] [facility] Work Phone: 01-06-2022 19:22-0400 Body height 175.26 cm [facility] Work Phone: 01-06-2022 19:22-0400 Body mass index (BMI) [Ratio] 45.3 kg/m2 [facility] Work Phone: 01-06-2022 19:22-0400 Body temperature 97.3 [degF] [facility] Work Phone: 01-06-2022 19:22-0400 Body weight 139.3 kg [facility] Work Phone: 01-06-2022 19:22-0400 SaO2% (BldA) [Mass fraction] 99 % [facility] Work Phone: 12-14-2021 19:06-0500 Respiratory rate 16 /min [facility] Work Phone: 12-14-2021 18:35-0500 Body mass index (BMI) [Ratio] 42 kg/m2 [facility] Work Phone: 12-14-2021 18:35-0500 Body temperature 97 [degF] [facility] Work Phone: 12-14-2021 18:35-0500 Body weight 129.27 kg [facility] Work Phone: 12-14-2021 18:35-0500 Diastolic blood pressure 107 mm[Hg] [facility] Work Phone: 12-14-2021 18:35-0500 Heart rate 101 /min [facility] Work Phone: 12-14-2021 18:35-0500 SaO2% (BldA) [Mass fraction] 98 % [facility] Work Phone: 12-14-2021 18:35-0500 Systolic blood pressure 142 mm[Hg] [facility] Work Phone: 11-23-2021 19:54-0500 Body mass index (BMI) [Ratio] 43.1 kg/m2 [facility] Work Phone: 11-23-2021 19:54-0500 Body temperature 97.4 [degF] [facility] Work Phone: 11-23-2021 19:54-0500 Body weight 132.44 kg [facility] Work Phone: 11-23-2021 19:54-0500 Diastolic blood pressure 95 mm[Hg] [facility] Work Phone: 11-23-2021 19:54-0500 Heart rate 97 /min [facility] Work Phone: 11-23-2021 19:54-0500 Respiratory rate 16 /min [facility] Work Phone: 11-23-2021 19:54-0500 SaO2% (BldA) [Mass fraction] 98 % [facility] Work Phone: 11-23-2021 19:54-0500 Systolic blood pressure 141 mm[Hg] [facility] Work Phone: 11-20-2021 19:35-0500 Body mass index (BMI) [Ratio] 43.1 kg/m2 [facility] Work Phone: 11-20-2021 19:35-0500 Body temperature 97 [degF] [facility] Work Phone: 11-20-2021 19:35-0500 Body weight 132.44 kg [facility] Work Phone: 11-20-2021 19:35-0500 Diastolic blood pressure 94 mm[Hg] [facility] Work Phone: 11-20-2021 19:35-0500 Heart rate 99 /min [facility] Work Phone: 11-20-2021 19:35-0500 Respiratory rate 18 /min [facility] Work Phone: 11-20-2021 19:35-0500 SaO2% (BldA) [Mass fraction] 97 % [facility] Work Phone: 11-20-2021 19:35-0500 Systolic blood pressure 132 mm[Hg] [facility] Work Phone: 10-08-2021 19:15-0500 Body temperature 98.4 [degF] [facility] Work Phone: 10-08-2021 19:15-0500 Diastolic blood pressure 76 mm[Hg] [facility] Work Phone: 10-08-2021 19:15-0500 Heart rate 88 /min [facility] Work Phone: 10-08-2021 19:15-0500 Respiratory rate 18 /min [facility] Work Phone: 10-08-2021 19:15-0500 SaO2% (BldA) [Mass fraction] 96 % [facility] Work Phone: 10-08-2021 19:15-0500 Systolic blood pressure 138 mm[Hg] [facility] Work Phone: 10-08-2021 18:02-0500 Body mass index (BMI) [Ratio] 42.8 kg/m2 [facility] Work Phone: 10-08-2021 18:02-0500 Body weight 131.54 kg [facility] Work Phone: 09-30-2021 14:26-0500 Body mass index (BMI) [Ratio] 42.8 kg/m2 [facility] Work Phone: 09-30-2021 14:26-0500 Body temperature 97.6 [degF] [facility] Work Phone: 09-30-2021 14:26-0500 Body weight 131.54 kg [facility] Work Phone: 09-30-2021 14:26-0500 Diastolic blood pressure 73 mm[Hg] [facility] Work Phone: 09-30-2021 14:26-0500 Heart rate 97 /min [facility] Work Phone: 09-30-2021 14:26-0500 Respiratory rate 18 /min [facility] Work Phone: 09-30-2021 14:26-0500 SaO2% (BldA) [Mass fraction] 95 % [facility] Work Phone: 09-30-2021 14:26-0500 Systolic blood pressure 123 mm[Hg] [facility] Work Phone: 09-21-2021 14:12-0500 Body mass index (BMI) [Ratio] 39.6 kg/m2 [facility] Work Phone: 09-21-2021 14:12-0500 Body temperature 96.3 [degF] [facility] Work Phone: 09-21-2021 [id number] Body weight 128.82 kg [facility] Work Phone: 09-21-2021 14:12-0500 Diastolic blood pressure 104 mm[Hg] [facility] Work Phone: 09-21-2021 14:12-0500 Heart rate 93 /min [facility] Work Phone: 09-21-2021 14:12-0500 Respiratory rate 18 /min [facility] Work Phone: 09-21-2021 14:12-0500 SaO2% (BldA) [Mass fraction] 97 % [facility] Work Phone: 09-21-2021 14:12-0500 Systolic blood pressure 143 mm[Hg] [facility] Work Phone: Encounters Encounter Date Encounter Type Care Provider Facility Start: 08-07-2025 ambulatory [facility] Facility: [facility] Start: 08-07-2025 End: 08-07-2025 Office outpatient visit 15 minutes Chana Robels UM SPECIALIST-PHARMACY MANAGER Work Phone: [facility] Comment on above: TTP (thrombotic thro mbocytopenic purpura) (Primary Dx); Gastroesophageal reflux disease, unspecified whether esophagitis present; Family history of colon cancer in father Start: 08-07-2025 ambulatory [facility] Facility: [facility] Start: 06-10-2025 End: 06-10-[address] Katia Belle MD -[facility] Work Phone: Start: 06-10-2025 End: 06-10-[address] Katia Belle MD Work Phone: -[facility] Start: 06-10-2025 End: 06-10-2025 ambulatory Katia Belle Facility:[facility] Start: 04-29-2025 End: 04-29-2025 Emergency department patient visit Dr. Katia Belle MD Work Phone: -Emergency Department Work Phone: Start: 04-24-2025 ambulatory ABDIRAHMAN Emmanueli ty:[facility] Start: 04-24-2025 End: 04-24-2025 Office outpatient visit 15 minutes Abdirahman Rutherford MD Work Phone: [facility] Comment on above: TTP (thrombotic thro mbocytopenic purpura) (Primary Dx) Start: 04-07-2025 End: 04-07-2025 Emergency department patient visit Dr. Katia Belle MD Work Phone: -Emergency Department Work Phone: Start: 03-27-2025 ambulatory POLO MEREDITH Facility: [facility] Start: 02-10-2025 End: 02-10-[address] Katia Belle MD -[facility] Work Phone: Start: 02-10-2025 End: 02-10-2025 ambulatory Katia Belle Facility:[facility] Start: 01-23-2025 ambulatory POLO MEREDITH Facility: [facility] Start: 01-23-2025 End: 01-23-2025 Subsequent hospital visit by physician Fran Gaston MD Work Phone: [facility] Comment on above: Arrived Start: 01-23-2025 ambulatory POLO MEREDITH Facility: [facility] Start: 01-16-2025 End: 01-16-2025 Office outpatient visit 15 minutes Abdirahman Rutherford MD Work Phone: [facility] Comment on above: TTP (thrombotic thro mbocytopenic purpura) (Primary Dx) Start: 01-16-2025 ambulatory POLO NÚÑEZORE Facility: [facility] Start: 11-30-2024 End: 11-30-2024 Emergency department patient visit Katiadyana Lopezlay Facility:[facility] Start: 11-16-2024 End: 11-16-2024 Emergency department patient visit Ivon Garcia Facility:[facility] Start: 10-29-2024 End: 10-29-2024 ambulatory [facility] Facility:[facility] Start: 09-26-2024 End: 09-26-2024 Office outpatient visit 15 minutes Abdirahman Rutherford MD Work Phone: [facility] Comment on above: TTP (thrombotic thro mbocytopenic purpura) (Primary Dx) Start: 09-26-2024 ambulatory ABDIRAHMAN RUTHERFORD Facili ty:[facility] Start: 09-04-2024 End: 09-04-2024 Emergency department patient visit [facility] Facility:[facility] Start: 08-02-2024 End: 08-02-2024 Emergency department patient visit Ed Physician Provider Facility:[facility] Start: 07-30-2024 ambulatory Josi Saravia Facility:[facility] Start: 07-30-2024 End: 07-30-2024 ambulatory [facility] Facility:[facility] Start: 07-30-2024 End: 07-30-2024 ambulatory [facility] Facility:[facility] Start: 05-13-2024 End: 05-13-2024 Patient encounter procedure Monique Tanner MD Work Phone: [facility] [place] Comment on above: Rotator cuff syndrom e of right shoulder (Primary Dx); Calcific tendinitis Start: 04-11-2024 End: 04-11-2024 Office outpatient new 30 minutes Chencho Avendaño MD Work Phone: [facility] [place] Comment on above: Rotator cuff syndrom e of right shoulder (Primary Dx) Start: 03-17-2024 End: 03-17-2024 Emergency department patient visit IZABELA [facility] Comment on above: Cellulitis of buttoc k (Primary Dx) Start: 02-25-2024 End: 02-25-2024 Emergency department patient visit Lois Clifford Work Phone: [facility] Comment on above: Hyperglycemia Start: 02-23-2024 End: 02-23-2024 Evaluation and management of inpatient [facility] Work [facility]: Start: 02-23-2024 Evaluation and manag ement of inpatient No [facility] Work [facility]: Start: 02-22-2024 End: 02-23-2024 Emergency department patient visit No Primary Care Physician [facility] Work Phone: Start: 02-15-2024 End: 02-15-2024 Office outpatient visit 25 minutes Edilia Robles APRNFaction Skis Work Phone: [facility] Comment on above: TTP (thrombotic thro mbocytopenic purpura) (Primary Dx); Bilateral shoulder pain, unspecified chronicity; Encounter for routine dental examination Start: 02-15-2024 End: 02-15-2024 Patient encounter status Edilia Lillie Robles UM SPECIALIST-[employer] Work Phone: [facility] Start: 01-12-2024 End: 01-12-2024 Office outpatient new 30 minutes Noble Licona MD Work Phone: [facility] Comment on above: Bilateral shoulder p ain, unspecified chronicity (Primary Dx) Start: 01-12-2024 End: 01-12-2024 Subsequent hospital visit by physician Noble Licona MD Work Phone: [facility] Comment on above: Arrived Start: 01-04-2024 End: 01-05-2024 Office outpatient visit 15 minutes Abdirahman Rutherford MD Work Phone: [facility] Comment on above: TTP (thrombotic thro mbocytopenic purpura) (Primary Dx) Start: 12-31-2023 End: 12-31-2023 Emergency department patient visit POLO MELLO Facility:[facility] Start: 12-24-2023 End: 12-24-2023 Emergency department patient visit MAINOR MENDOZA [facility] Start: 12-23-2023 End: 12-23-2023 Emergency department patient visit No Primary Care Physician [facility] Work Phone: Start: 12-12-2023 End: 12-12-2023 Emergency department patient visit No Primary Care Physician [facility] Work Phone: Start: 12-01-2023 End: 12-01-2023 Patient encounter procedure No Primary Care Physician [facility] Work Phone: Start: 11-30-2023 End: 11-30-2023 [facility] Start: 11-27-2023 End: 11-27-2023 Emergency department patient visit TOD ARROYO MD Facility:[facility] Start: 11-27-2023 End: 11-27-2023 Emergency department patient visit TOD ARROYO MD [facility] Start: 11-16-2023 End: 11-16-2023 Office outpatient visit 15 minutes Abdirahman Rutherford MD Work Phone: [facility] Comment on above: TTP (thrombotic thro mbocytopenic purpura) (Primary Dx) Start: 11-10-2023 End: 11-10-2023 Emergency department patient visit [facility] Work Phone: Start: 11-03-2023 End: 11-03-2023 Emergency department patient visit CHINYERE VANDANAVIPIN EWING Facility:[facility] Start: 11-03-2023 End: 11-03-2023 Emergency department patient visit [facility] Start: 10-29-2023 End: 10-29-2023 Emergency department patient visit [facility] Work Phone: Start: 09-16-2023 End: 09-16-2023 Emergency department patient visit Ok Adler DO Work Phone: [facility] Comment on above: Gluteal abscess (Corrine barrett Dx) Start: 09-15-2023 End: 09-15-2023 Emergency department patient visit NO ASSIGNED PCP GENERIC PROVIDER [facility] Start: 05-23-2023 End: 05-23-2023 Emergency department patient visit [facility] Work Phone: Start: 02-13-2023 End: 02-13-2023 Office outpatient visit 15 minutes Sonido Lullibby [facility] Work Phone: [facility] Comment on above: Type 2 diabetes ton itus without complication, with long-term current use of insulin (Primary Dx) Start: 01-23-2023 End: 01-24-2023 Emergency department patient visit [facility] Start: 01-19-2023 End: 01-19-2023 Subsequent hospital visit by physician Memo Saab MD Work Phone: [facility] Comment on above: Canceled (Cancel Smumer son Not Listed - Please provide detailed information) Start: 10-27-2022 End: 10-27-2022 Patient encounter status Lonnie Mckeonheike UM SPECIALIST-PHARMACY MANAGER Work Phone: [facility] Start: 10-27-2022 End: 10-27-2022 Periodic preventive med est patient 40-64yrs Lonnie Mckeonheike UM SPECIALIST-PHARMACY MANAGER Work Phone: [facility] Comment on above: Well adult exam (Corrine barrett Dx); Carpal tunnel syndrome of right wrist; [...] 10-18-2022 End: 10-18-2022 Emergency department patient visit [facility] Start: 10-09-2022 End: 10-09-2022 Emergency department patient visit [facility] Start: 10-06-2022 End: 10-06-2022 Subsequent hospital visit by physician Shira Cota DPM Work Phone: [facility] Comment on above: Arrived Start: 09-16-2022 End: 09-22-2022 Office outpatient visit 15 minutes Shira Cota DPM Work Phone: [facility] [place] Comment on above: Insertional Achilles tendinopathy (Primary [...] MD Work Phone: [facility] Comment on above: Myalgia (Primary Dx) ; [...] 04-06-2022 Office outpatient visit 15 minutes Lonnie Ring UM SPECIALIST-PHARMACY MANAGER Work Phone: [facility] [place] Comment on above: Type 2 diabetes ton itus without complication, with long-term current use of insulin (Primary Dx); Chronic bilateral low back pain with left-sided sciatica; Insertional Achilles tendinopathy; Postcalcaneal bursitis of right foot Start: 02-21-2022 End: 02-21-2022 Emergency department patient visit [facility] Start: 02-08-2022 End: 02-08-2022 Subsequent hospital visit by physician Shira Cota DPM Work Phone: [facility] [place] Comment on above: Arrived Start: 02-08-2022 End: 02-08-2022 Office consultation new/estab patient 60 min Shira Cota DPM Work Phone: [facility] [place] Comment on above: Retrocalcaneal exost osis (Primary Dx); Insertional Achilles tendinopathy; Bilateral foot pain; Postcalcaneal bursitis of right foot Start: 01-31-2022 End: 01-31-2022 Office outpatient visit 15 minutes Lonnie Ring APRN-PHARMACY MANAGER Work Phone: [facility] [place] Comment on above: Chronic bilateral lo w back pain with left-sided sciatica (Primary Dx) Start: 01-27-2022 End: 01-27-2022 Subsequent hospital visit by physician Fran Gaston MD Work Phone: [facility] Comment on above: Arrived Start: 01-27-2022 End: 01-27-2022 Office consultation new/estab patient 60 min Fran Gaston MD Work Phone: [facility] Comment on above: Myalgia (Primary Dx) ; Chronic bilateral low back pain with left-sided sciatica; Strain of lumbar region, initial encounter; Class 3 severe obesity due to excess calories with body mass index (BMI) of 40.0 to 44.9 in adult, unspecified whether serious comorbidity present Start: 01-13-2022 End: 01-13-2022 [facility] Start: 01-06-2022 End: 01-06-2022 [facility] Start: 12-14-2021 End: 12-14-2021 [facility] Start: 11-23-2021 End: 11-23-2021 [facility] Start: 11-20-2021 End: 11-20-2021 [facility] Start: 10-08-2021 End: 10-08-2021 Emergency department patient visit [facility] Start: 09-30-2021 End: 09-30-2021 [facility] Start: 09-29-2021 Patient encounter procedure [facility], [facility] Start: 09-21-2021 End: 09-21-2021 [facility] Procedures Date Procedure Procedure Detail Performing Clinician Start: 08-07-2025 CBC AND ELECTRONIC DIFF Chana Robles UM SPECIALIST-PHARMACY MANAGER Work Phone: Start: 08-07-2025 Complete blood count with white cell differential, automated hCana Robles UM SPECIALIST-PHARMACY MANAGER Work Phone: Start: 08-07-2025 Comprehensive metabo lic panel Chana Robles UM SPECIALIST-PHARMACY MANAGER Work Phone: Start: 04-29-2025 X-ray of ankle, thre e or more views Dr. Katia Belle MD Work Phone: Start: 04-29-2025 X-ray of foot, three or more views Dr. Katia Belle MD Work Phone: Start: 04-24-2025 [id number] ACTIVITY AN D IGG AB W/REFLEX TO INHIBITOR Abdirahman Rutherford MD Work Phone: Start: 04-24-2025 CBC AND ELECTRONIC DIFF Abdirahman Rutherford MD Work Phone: Start: 04-24-2025 Complete blood count with white cell differential, automated Abdirahman Rutherford MD Work Phone: Start: 04-24-2025 Hemoglobin glycosyla yuki a1c Abdirahman Rutherford MD Work Phone: Start: 04-07-2025 Plain X-ray of shoulder Dr. Katia Belle MD Work Phone: Start: 01-23-2025 Radex spine cervical 4 or 5 views Fran Gaston MD Work Phone: Start: 01-16-2025 CBC AND ELECTRONIC DIFF Chana Cejao UM SPECIALIST-PHARMACY MANAGER Work Phone: Start: 01-16-2025 Complete blood count with white cell differential, automated Chana Robles UM SPECIALIST-PHARMACY MANAGER Work Phone: Start: 01-16-2025 Comprehensive metabo lic panel Chana Cejao UM SPECIALIST-PHARMACY MANAGER Work Phone: Start: 09-26-2024 CBC AND ELECTRONIC [...] Work Phone: Start: 02-25-2024 EXTRA MICRO Geovanna esparza UM SPECIALIST-PHARMACY MANAGER Work Phone: Start: 02-25-2024 URINALYSIS REFLEX TO CULTURE Geovanna Senior UM SPECIALIST-PHARMACY MANAGER Work Phone: Start: 02-25-2024 Urnls dip stick/tabl et reagent auto microscopy Geovanna Senior UM SPECIALIST-PHARMACY MANAGER Work Phone: Start: 02-25-2024 Glucose measurement, blood Jin Koch MD Work Phone: Start: 02-25-2024 Radiologic exam ches t single view Geovanna Senior UM SPECIALIST-PHARMACY MANAGER Work Phone: Start: 02-25-2024 Glucose measurement, blood Lois Clifford DO Work Phone: Start: 02-25-2024 Blood [...] Start: 02-25-2024 MINT GREEN TOP TUBE Ivy jose Capone MD Work Phone: Start: 02-25-2024 RAINBOW [...] MD Work Phone: Start: 01-04-2024 C-reactive protein Joser petra Rutherford MD Work Phone: Start: 01-04-2024 CBC AND ELECTRONIC DIFF Edilia Moreira Travis UM SPECIALIST-PHARMACY MANAGER Work Phone: Start: 01-04-2024 Complete blood count with white cell differential, automated Edilia Moreira Travis UM SPECIALIST-PHARMACY MANAGER Work Phone: Start: 01-04-2024 Comprehensive metabo lic panel Edilia Moreira Travis UM SPECIALIST-PHARMACY MANAGER Work Phone: Start: 12-01-2023 X-ray of cervical spine No Primary Care Physician Start: 11-16-2023 [id number] ACTIVITY AN D IGG AB W/REFLEX TO [...] 02-13-2023 Hemoglobin glycosyla yuki a1c Lonnie Ring UM SPECIALIST-PHARMACY MANAGER Work Phone: Start: 10-27-2022 CBC AND ELECTRONIC DIFF Abdirahman Rutherford MD Work Phone: Start: 10-27-2022 Complete blood count with white cell differential, automated Abdirahman Rutherford MD Work Phone: Start: 10-27-2022 Lactate dehydrogenase ldh Abdirahman Rutherford MD Work Phone: Start: 10-06-2022 Mri any jt lower ext rem w/o contrast matrl Markyeni Smith DPM Work Phone: Start: 07-21-2022 CBC AND ELECTRONIC DIFF Abdirahman Rutherford MD Work Phone: Start: 07-21-2022 Complete blood count with white cell differential, automated Abdirahman Rutherford MD Work Phone: Start: 07-21-2022 Hemoglobin glycosyla yuki a1c Lonnie Ring UM SPECIALIST-PHARMACY MANAGER Work Phone: Start: 07-21-2022 Lipid panel Lonnie tinoco UM SPECIALIST-PHARMACY MANAGER Work Phone: Start: 04-14-2022 CBC AND ELECTRONIC DIFF Abdirahman Rutherford MD Work Phone: Start: 04-14-2022 Complete blood count with white cell differential, automated Abdirahman Rutherford MD Work Phone: Start: 04-14-2022 Lactate dehydrogenase ldh Abdirahman Rutherford MD Work Phone: Start: 03-30-2022 Hemoglobin glycosyla yuki a1c Lonnie Ring UM SPECIALIST-PHARMACY MANAGER Work Phone: Start: 02-08-2022 Radex foot complete [...] 09-21-2021 Radiography of ankle Cardiac tamponade (disorder) CapLinked Ophthalmic surgery (qualifier value) CapLinked Plan of Treatment Date Care Activity Detail Author Start: 2041 RSV Immunization aged 60 or older (1 - 1-dose 60+ series) RSV Immunization aged 60 or older (1 - 1-dose 60+ series) [facility] Start: 10-27-2032 DTaP/Tdap/Td Vaccines (3 - Td or Tdap) DTaP/Tdap/Td Vaccines (3 - Td or Tdap) [facility] Start: 10-27-2032 Tetanus vaccination TETANUS [facility] Start: 2031 Zoster Vaccines (1 of 2) Zoster Vaccines (1 of 2) [facility] Start: 11-13-2025 End: 11-13-2025 Patient encounter procedure 11/13/2025 8:40 AM EST Office Visit [facility] [address] [place] [address] Chana Robles, UM SPECIALIST-PHARMACY MANAGER [address] [place] [address] [facility] Start: 10-25-2025 Hemoglobin A1c measurement HBA1C TEST [facility] Start: 08-29-2025 End: 08-29-2025 Patient encounter procedure 08/29/2025 8:50 AM EST Office Visit [facility] [address] [place] [address] Fran Gaston MD [address] [place] [phone] [facility] Start: 08-14-2025 End: 08-07-2026 DIAGNOSTIC UPPER ENDOSCOPY DIAGNOSTIC UPPER ENDOSCOPY GI/Bronch Routine Gastroesophageal reflux disease, unspecified whether esophagitis present Expected: 08/14/2025 (Approximate), Expires: 08/07/2026 [facility] Comment on above: Expected: 08/14/2025 (Approximate), Expi res: 08/07/2026 Start: 08-14-2025 End: 08-07-2026 Screening colonoscopy SCREENING COLONOSCOPY GI/Bronch Routine Family history of colon cancer in father Expected: 08/14/2025 (Approximate), Expires: 08/07/2026 [facility] Comment on above: Expected: 08/14/2025 (Approximate), Expi res: 08/07/2026 Start: 08-07-2025 End: 08-07-2025 Patient encounter procedure 08/07/2025 8:40 AM EDT Office Visit [facility] [address] [place] [phone] Chana Robles, UM SPECIALIST-PHARMACY MANAGER [address] 1[address] [place] [address] [facility] Start: 08-06-2025 End: 08-06-2025 Patient encounter procedure 08/06/2025 11:20 AM EDT Office Visit Primary Care - General Internal Medicine and Pediatrics [facility] [place] [address] [place] [address] Edith Robles DO [address] [place] [address] Primary Care - General Internal Medicine and Pediatrics [facility] [place] Start: 08-05-2025 End: 08-09-2025 [id number] ACTIVITY AND IGG AB W/REFLEX TO INHIBITOR [id number] ACTIVITY AND IGG AB W/REFLEX TO INHIBITOR Lab Routine TTP (thrombotic thrombocytopenic purpura) Expected: 08/05/2025, Expires: 08/09/2025 [facility] Comment on above: Expected: 08/05/2025, Expires: Start: 08-05-2025 End: 09-05-2025 BLOOD, RESEARCH BLOOD, RESEARCH Lab Routine TTP (thrombotic thrombocytopenic purpura) Expected: 08/05/2025, Expires: 09/05/2025 [facility] Comment on above: Expected: 08/05/2025, Expires: Start: 06-16-2025 COVID-19 VACCINE ( season) COVID-19 VACCINE () [facility] Start: 06-16-2025 Influenza vaccination [facility] Start: 05-01-2025 End: 05-01-2025 Patient encounter procedure 05/01/2025 8:50 AM EDT Office Visit [facility] [address] [place] [phone] Fran Gaston MD [address] [place] [phone] [facility] Start: 04-29-2025 [facility] Start: 04-24-2025 End: 04-23-2026 BLOOD, RESEARCH BLOOD, RESEARCH Lab Routine TTP (thrombotic thrombocytopenic purpura) Expected: 04/24/2025, Expires: 04/23/2026 [facility] Comment on above: Expected: 04/24/2025, Expires: Start: 04-24-2025 End: 04-24-2025 Patient encounter procedure 04/24/2025 8:00 AM EDT Office Visit [facility] [address] [place] [phone] Abdirahman Rutherford MD [address] [facility] [address] [place] [address] [facility] Start: 04-23-2025 End: 04-23-2026 BLOOD, RESEARCH BLOOD, RESEARCH Lab Routine TTP (thrombotic thrombocytopenic purpura) Expected: 04/23/2025, Expires: 04/23/2026 [facility] Comment on above: Expected: 04/23/2025, Expires: Start: 04-07-2025 [facility] Start: 03-27-2025 Hemoglobin A1c measurement HBA1C TEST [facility] Start: 01-23-2025 End: 01-23-2025 Patient encounter procedure 01/23/2025 9:10 AM EDT Office Visit [facility] [address] [place] [phone] Fran Gaston MD [address] [place] [address] [facility] Start: 01-16-2025 End: 01-16-2025 Patient encounter procedure 01/16/2025 10:30 AM EDT Office Visit [facility] [address] [place] [phone] Abdirahman Rutherford MD [address] [address] [facility] Start: 01-14-2025 End: 01-18-2025 [id number] ACTIVITY AND IGG AB W/REFLEX TO INHIBITOR [id number] ACTIVITY AND IGG AB W/REFLEX TO INHIBITOR Lab Routine TTP (thrombotic thrombocytopenic purpura) Expected: 01/14/2025, Expires: 01/18/2025 [facility] Comment on above: Expected: 01/14/2025, Expires: Start: 01-14-2025 End: 01-14-2026 BLOOD, RESEARCH BLOOD, RESEARCH Lab Routine TTP (thrombotic thrombocytopenic purpura) Expected: 01/14/2025, Expires: 01/14/2026 [facility] Comment on above: Expected: 01/14/2025, Expires: Start: 10-25-2024 End: 10-25-2024 Patient encounter procedure 10/25/2024 8:50 AM EST Office Visit [facility] [address] [place] [phone] Fran Gaston MD [address] [place] [address] [facility] Start: 09-26-2024 End: 09-25-2025 BLOOD, RESEARCH BLOOD, RESEARCH Lab Routine TTP (thrombotic thrombocytopenic purpura) Expected: 09/26/2024, Expires: 09/25/2025 [facility] Comment on above: Expected: 09/26/2024, Expires: Start: 09-25-2024 End: 09-25-2025 [id number] ACTIVITY AND IGG AB W/REFLEX TO INHIBITOR [id number] ACTIVITY AND IGG AB W/REFLEX TO INHIBITOR Lab Routine TTP (thrombotic thrombocytopenic purpura) Expected: 09/25/2024, Expires: 09/25/2025 [facility] Comment on above: Expected: 09/25/2024, Expires: Start: 09-25-2024 End: 09-25-2025 BLOOD, RESEARCH BLOOD, RESEARCH Lab Routine TTP (thrombotic thrombocytopenic purpura) Expected: 09/25/2024, Expires: 09/25/2025 [facility] Comment on above: Expected: 09/25/2024, Expires: 5 Start: 08-27-2024 Hemoglobin A1c measurement HBA1C TEST [facility] Start: 07-06-2024 Hemoglobin A1c measurement HBA1C TEST [facility] Start: 06-16-2024 COVID-19 VACCINE () COVID-19 VACCINE () [facility] Start: 06-16-2024 Influenza vaccination [facility] Start: 05-16-2024 End: 05-16-2024 Patient encounter procedure 05/16/2024 8:40 AM EDT Office Visit [facility] [address] [place] [phone] TravisEdilia Lillie, UM SPECIALIST-PHARMACY MANAGER [address] 1[address] [place] [address] [facility] Start: 05-13-2024 End: 05-13-2024 Patient encounter procedure 05/13/2024 8:30 AM EDT Office Visit [facility] [place] [address] [place] [address] Monique Tanner MD [address] [place] [address] Sports Medicine Outpatient [facility] Start: 02-24-2024 [facility] Start: 02-23-2024 Patient discharge [facility] Start: 02-23-2024 Care planning and problem solving actions [facility] Start: 02-23-2024 Application of intermittent pneumatic compression device [facility] Start: 02-23-2024 Following clinical pathway protocol [facility] Start: 02-23-2024 Assessment of risk of venous thromboembolism [facility] Start: 02-23-2024 Continuous pulse oximetry [facility] Start: 02-23-2024 Documentation procedure [facility] Start: 02-23-2024 Elevation of head of bed [facility] Start: 02-23-2024 Insertion of catheter into peripheral vein [facility] Start: 02-23-2024 Measuring intake and output [facility] Start: 02-23-2024 Oxygen therapy [facility] Start: 02-23-2024 Patient referral to dietitian [facility] Start: 02-23-2024 Providing care according to standard [facility] Start: 02-23-2024 Referral to service [facility] Start: 02-23-2024 Vital signs measurements [facility] Start: 02-23-2024 [facility] Start: 02-23-2024 Verification routine [facility] Start: 02-23-2024 Admission procedure [facility] Start: 02-23-2024 Thyroid stimulating hormone measurement [facility] Start: 02-23-2024 [facility] Start: 02-23-2024 Hospital admission, emergency, from emergency room, medical nature [facility] Start: 02-23-2024 Verification routine [facility] Start: 02-23-2024 Admission procedure [facility] Start: 02-15-2024 End: 02-15-2024 Patient encounter procedure 02/15/2024 8:40 AM EDT Office Visit [facility] [address] [place] [address] Edilia Robles, UM SPECIALIST-PHARMACY MANAGER [address] [facility] 1st floor [address] [place] [address] [facility] Start: 02-14-2024 End: 02-13-2025 [id number] ACTIVITY AND IGG AB W/REFLEX TO INHIBITOR [id number] ACTIVITY AND IGG AB W/REFLEX TO INHIBITOR Lab Routine TTP (thrombotic thrombocytopenic purpura) Expected: 02/14/2024, Expires: 02/13/2025 [facility] Comment on above: Expected: 02/14/2024, Expires: Start: 01-12-2024 End: 01-12-2024 Patient encounter procedure 01/12/2024 10:15 AM EDT Office Visit [facility] Medicine [facility] [address] [place] [address] Noble Licona MD [address] [place] [address] [facility] Start: 01-05-2024 End: 01-04-2025 SEDIMENTATION RATE, AUTOMATED SEDIMENTATION RATE, AUTOMATED Lab Routine TTP (thrombotic thrombocytopenic purpura) Expected: 01/05/2024, Expires: 01/04/2025 [facility] Comment on above: Expected: 01/05/2024, Expires: Start: 01-03-2024 End: 01-02-2025 BLOOD, RESEARCH BLOOD, RESEARCH Lab Routine TTP (thrombotic thrombocytopenic purpura) Expected: 01/03/2024, Expires: 01/02/2025 [facility] Comment on above: Expected: 01/03/2024, Expires: Start: 01-02-2024 End: 01-01-2025 [id number] ACTIVITY AND IGG AB W/REFLEX TO INHIBITOR [id number] ACTIVITY AND IGG AB W/REFLEX TO INHIBITOR Lab Routine TTP (thrombotic thrombocytopenic purpura) Expected: 01/02/2024, Expires: 01/01/2025 [facility] Work Phone: Comment on above: Expected: 01/02/2024, Expires: Start: 12-23-2023 [facility] Start: 12-12-2023 [facility] Start: 11-30-2023 [facility] Start: 11-16-2023 End: 11-15-2024 BLOOD, RESEARCH BLOOD, RESEARCH Lab Routine TTP (thrombotic thrombocytopenic purpura) Expected: 11/16/2023, Expires: 11/15/2024 [facility] Comment on above: Expected: 11/16/2023, Expires: 5 Start: 11-16-2023 End: 11-15-2024 URINE PROTEIN/CREA RATIO, RANDOM URINE PROTEIN/CREA RATIO, RANDOM Fluids Routine TTP (thrombotic thrombocytopenic purpura) Expected: 11/16/2023, Expires: 11/15/2024 [facility] Comment on above: Expected: 11/16/2023, Expires: 5 Start: 11-10-2023 [facility] Start: 10-29-2023 [facility] Start: 10-27-2023 PREVENTATIVE HEALTH VISIT PREVENTATIVE HEALTH VISIT [facility] Start: 09-29-2023 Urine screening for protein URINE MICROALBUMIN TEST [facility] Start: 08-16-2023 Hemoglobin A1c measurement HBA1C TEST [facility] Start: 07-21-2023 Hemoglobin A1c measurement Diabetes: Hemoglobin A1C [facility] Start: 07-21-2023 Lipid panel LIPIDS [facility] Start: 07-21-2023 LIPIDS LIPIDS [facility] Start: 07-17-2023 End: 07-17-2023 Patient encounter procedure 07/17/2023 Office Visit Family Sonido [facility], [facility] [address] [place] [address] [facility] Start: 06-16-2023 COVID-19 Vaccine () COVID-19 Vaccine () [facility] Start: 06-16-2023 COVID-19 VACCINE () COVID-19 VACCINE () [facility] Start: 06-16-2023 Influenza vaccination Influenza Vaccine (#1) [facility] Start: 04-13-2023 End: 04-13-2023 Patient encounter procedure 04/13/2023 Office Visit Hematology Abdirahman Rutherford MD [address] [facility] 13th [place] [phone] Division of Hematology & Oncology Start: 03-02-2023 End: 03-02-2023 Patient encounter procedure 03/02/2023 Office Visit Sports Medicine Johana Blackwood MD [address] [address] [facility] [place] Start: 02-15-2023 End: 02-15-2023 Patient encounter procedure 02/15/2023 Office Visit Orthopaedics Johana Blackwood MD [address] [place] [address] [facility] Start: 02-02-2023 End: 02-02-2023 Patient encounter procedure 02/02/2023 Office Visit [facility] Sonido [facility], [facility] [address] [place] [address] [facility] Start: 01-24-2023 Suicide precautions [facility] Start: 01-23-2023 Referral to service [facility] Start: 01-23-2023 Suicide precautions [facility] Start: 01-19-2023 Hemoglobin A1c measurement HBA1C TEST [facility] Start: 01-19-2023 End: 01-19-2023 Patient encounter procedure 01/19/2023 Office Visit Hematology Abdirahman Rutherford MD [address] [facility] 13th [place] [address] Division of Hematology & Oncology Start: 12-14-2022 End: 12-14-2022 Patient encounter procedure 12/14/2022 Office Visit Sports Medicine Efrain Berry MD [address] [facility] [address] [place] [address] [facility] Start: 11-03-2022 End: 11-03-2022 Telemedicine consultation with patient 11/03/2022 Telemedicine Family Medicine Sonido Dyer, [facility] [address] [place] [address] [facility] Start: 10-27-2022 End: 10-26-2023 [id number] ACTIVITY AND IGG AB W/REFLEX TO INHIBITOR [facility] Comment on above: Expected: 10/27/2022, Expires: Start: 10-27-2022 End: 10-26-2023 BLOOD, RESEARCH BLOOD, RESEARCH Lab Routine TTP (thrombotic thrombocytopenic purpura) Expected: 10/27/2022, Expires: 10/26/2023 [facility] Comment on above: Expected: 10/27/2022, Expires: Start: 10-27-2022 End: 10-27-2022 Patient encounter procedure 10/27/2022 Office Visit Family Medicine Lonnie Ring, UM SPECIALIST-PHARMACY MANAGER [address] [place] [address] [facility] Start: 10-27-2022 End: 10-27-2022 Patient encounter procedure 10/27/2022 Office Visit Hematology Abdirahman Rutherford MD [address] [facility] [address] 13th [place] [address] Division of Hematology & Oncology Start: 10-06-2022 End: 10-06-2022 Patient encounter procedure 10/06/2022 Appointment Magnetic Resonance Imaging Shira Cota DPM [address] [facility] [address] [place] [address] [facility] Start: 09-29-2022 Hemoglobin A1c measurement HBA1C TEST [facility] Start: 09-29-2022 End: 09-29-2022 Patient encounter procedure Primary [facility] Start: 09-28-2022 Microalbumin measurement, urine, quantitative URINE MICROALBUMIN TEST [facility] Start: 09-28-2022 Urine screening for protein URINE MICROALBUMIN TEST [facility] Start: 09-22-2022 LIPIDS LIPIDS [facility] Start: 09-16-2022 End: 09-16-2023 MR Ankle - left WO contrast MRI ANKLE LEFT WITHOUT CONTRAST Imaging Routine Insertional Achilles tendinopathy Expected: 09/16/2022, Expires: 09/16/2023 [facility] Comment on above: Expected: 09/16/2022, Expires: Start: 08-04-2022 End: 08-04-2022 Telemedicine consultation with patient 08/04/2022 Telemedicine Family Medicine Sonido Dyer, [facility] [address] [place] [address] [facility] Start: 08-01-2022 End: 08-01-2022 Patient encounter procedure 08/01/2022 Office Visit Sports Medicine Shira Cota, DPM [address] [facility] [address] [place] [address] [facility] Start: 07-28-2022 End: 07-28-2022 Patient encounter procedure 07/28/2022 Office Visit Podiatry Shira Cota, BENNETT [address] [facility] [address] [place] [address] [facility] [place] Start: 07-21-2022 End: 07-20-2023 BLOOD, RESEARCH BLOOD, RESEARCH Lab Routine TTP (thrombotic thrombocytopenic purpura) Expected: 07/21/2022, Expires: 07/20/2023 [facility] Comment on above: Expected: 07/21/2022, Expires: 3 Start: 07-21-2022 End: 07-21-2022 Patient encounter procedure 07/21/2022 Office Visit Hematology Abdirahman Rutherford MD [address] [place] [address] [address] [address] Division of Hematology & Oncology Start: 07-20-2022 End: 07-20-2023 [id number] ACTIVITY AND IGG AB W/REFLEX TO INHIBITOR [id number] ACTIVITY AND IGG AB W/REFLEX TO INHIBITOR Lab Routine TTP (thrombotic thrombocytopenic purpura) Expected: 07/20/2022, Expires: 07/20/2023 [facility] Comment on above: Expected: 07/20/2022, Expires: 3 Start: 07-20-2022 End: 07-20-2023 BLOOD, RESEARCH BLOOD, RESEARCH Lab Routine TTP (thrombotic thrombocytopenic purpura) Expected: 07/20/2022, Expires: 07/20/2023 [facility] Comment on above: Expected: 07/20/2022, Expires: 3 Start: 06-30-2022 Hemoglobin A1c measurement HBA1C TEST [facility] Start: 06-16-2022 Influenza vaccination INFLUENZA VACCINE (#1) [facility] Start: 06-02-2022 End: 06-02-2022 Telemedicine consultation with patient 06/02/2022 Telemedicine Family Medicine Sonido Dyer, [facility] [address] [place] [address] [facility] Start: 05-13-2022 End: 05-13-2022 Patient encounter procedure 05/13/2022 Office Visit Multispecialty Fran Gaston MD [address] [place] [address] [facility] Start: 05-12-2022 End: 05-12-2022 Patient encounter procedure 05/12/2022 Office Visit Podiatry Shira Cota, DPVaishnavi [address] [address] Pod[facility] [place] Start: 04-26-2022 End: 04-26-2022 Telemedicine consultation with patient 04/26/2022 Telemedicine Family Medicine Sonido Dyer, [facility] [address] [place] [address] [facility] [place] Start: 04-19-2022 End: 04-19-2022 Patient encounter procedure 04/19/2022 Office Visit Family Medicine Lonnie Ring, UM SPECIALIST-PHARMACY MANAGER [address] [place] [address] [facility] [place] Start: 04-15-2022 End: 04-15-2022 Patient encounter procedure 04/15/2022 Office Visit Multispecialty Fran Gaston MD [address] [place] [address] [facility] Start: 04-14-2022 End: 04-13-2023 [id number] ACTIVITY AND IGG AB W/REFLEX TO INHIBITOR [facility] Comment on above: Expected: 04/14/2022, Expires: 3 Start: 04-14-2022 End: 04-13-2023 BLOOD, RESEARCH BLOOD, RESEARCH Lab Routine TTP (thrombotic thrombocytopenic purpura) Expected: 04/14/2022, Expires: 04/13/2023 [facility] Comment on above: Expected: 04/14/2022, Expires: 3 Start: 04-14-2022 End: 04-14-2022 Patient encounter procedure Division of Hematology & Oncology Start: 03-22-2022 End: 03-22-2022 Patient encounter procedure 03/22/2022 Office Visit Podiatry Shira Cota, DPVaishnavi [address] [facility] [address] [place] [address] [facility] [place] Start: 02-22-2022 End: 02-22-2022 Telemedicine consultation with patient 02/22/2022 Telemedicine Family Medicine Sonido Dyer, [facility] [address] [place] [address] [facility] [place] Start: 02-17-2022 End: 02-17-2022 ambulatory 02/17/2022 Rehab Services Visit Sports Medicine and Rehabilitation Lonnie Ring, UM SPECIALIST-PHARMACY MANAGER [address] [place] [address] Cristela Wong, PT [address] [facility] [address] [place] [phone] Sports Medicine Therapy [facility] [place] Start: 02-09-2022 End: 02-09-2022 ambulatory Sports Medicine Therapy [facility] Comment on above: Arrived Start: 02-08-2022 End: 02-08-2022 Telemedicine consultation with patient 02/08/2022 Telemedicine Family Medicine Sonido Dyer, [facility] [address] [place] [address] Family Medicine Out[facility] [place] Start: 02-08-2022 End: 02-08-2022 Patient encounter procedure 02/08/2022 Office Visit Podiatry Shira Cota, DPVaishnavi [address] [facility] [address] [place] [address] Podiatry Outpatient [facility] [place] Start: 02-02-2022 End: 02-02-2022 ambulatory 02/02/2022 Rehab Services Visit Sports Medicine and Rehabilitation Lonnie Ring APRN-PHARMACY MANAGER [address] [place] [address] Cristela Wong, PT [address] [place] [phone] Sports Medicine Therapy [facility] Start: 01-31-2022 End: 01-31-2022 Patient encounter procedure 01/31/2022 Office Visit Family Medicine Lonnie Ring APRN-PHARMACY MANAGER [address] [place] [address] Family Medicine Outpatient [facility] [place] Start: 01-28-2022 End: 01-28-2022 ambulatory 01/28/2022 Rehab Services Visit Sports Medicine and Rehabilitation Lonnie Ring APRN-PHARMACY MANAGER [address] [place] [address] Cristela Wong, PT [address] [place] [phone] Sports Medicine Therapy [facility] Medicine [place] Start: 06-24-2021 COVID-19 VACCINE (2 - Booster for Karla series) COVID-19 VACCINE (2 - Booster for Karla series) [facility] Start: 02-08-2008 HPV VACCINE (1 - 3-dose SCDM series) HPV VACCINE (1 - 3-dose SCDM series) [facility] Start: 02-08-2000 DTaP/Tdap/Td Vaccines (1 - Tdap) DTaP/Tdap/Td Vaccines (1 - Tdap) [facility] Start: 02-08-2000 Hepatitis B vaccination HEP B VACCINE (1 of 3 - 19+ 3-dose series) [facility] Start: 02-08-2000 Hepatitis B Vaccines (1 of 3 - 19+ 3-dose series) Hepatitis B Vaccines (1 of 3 - 19+ 3-dose series) [facility] Start: 02-08-2000 Third diphtheria, tetanus and acellular pertussis (DTaP) vaccination TDAP (ADULT) [facility] Start: 1999 Diabetes: Estimated Glomerular Filtration Rate for Kidney Health Diabetes: Estimated Glomerular Filtration Rate for Kidney Health [facility] Start: 1999 Diabetes: Urine Albumin-Creatinine Ratio for Kidney Health Diabetes: Urine Albumin-Creatinine Ratio for Kidney Health [facility] Start: 1999 Hepatitis C screening Hepatitis C Screening [facility] Start: 1999 Tetanus vaccination TETANUS [facility] Start: 1994 Varicella vaccination Varicella Vaccines (1 of 2 - 13+ 2-dose series) [facility] Start: 1993 Depression Screening Depression Screening [facility] Start: 1991 Diabetic foot examination Diabetes: Foot Exam [facility] Start: 1991 Glaucoma screening Diabetes: Retinopathy Screening [facility] Start: 1991 Preventive dental service Diabetes: Dental Exam [facility] Start: 1987 Pneumococcal Vaccine: Pediatrics (0 to 5 Years) and At-Risk Patients (6 to 64 Years) (1 - PCV) Pneumococcal Vaccine: Pediatrics (0 to 5 Years) and At-Risk Patients (6 to 64 Years) (1 - PCV) [facility] Start: 1987 Pneumococcal Vaccine: Pediatrics (0 to 5 Years) and At-Risk Patients (6 to 64 Years) (1 of 2 - PCV) Pneumococcal Vaccine: Pediatrics (0 to 5 Years) and At-Risk Patients (6 to 64 Years) (1 of 2 - PCV) [facility] Start: 02-08-1984 PREVENTATIVE HEALTH VISIT PREVENTATIVE HEALTH VISIT [facility] Start: 1982 MMR Vaccines (1 of 1 - Standard series) MMR Vaccines (1 of 1 - Standard series) [facility] Start: 1982 Varicella vaccination Varicella Vaccines (1 of 2 - 2-dose childhood series) [facility] Start: 1981 Diabetic foot examination DIABETIC FOOT EXAM [facility] Start: 1981 Diabetic retinal eye exam EYE EXAM [facility] Start: 1981 Glaucoma screening EYE EXAM [facility] Start: 1981 Hemoglobin A1c measurement Diabetes: Hemoglobin A1C [facility] Start: 1981 Hepatitis B vaccination HEP B VACCINE (1 of 3 - 3-dose series) [facility] Start: 1981 Hepatitis B Vaccines (1 of 3 - 3-dose series) Hepatitis B Vaccines (1 of 3 - 3-dose series) [facility] Start: 1981 HIV screening HIV Screening [facility] Start: 1981 Lipid panel Lipid Panel [facility] Start: 1981 Tetanus vaccination TETANUS [facility] [id number] ACTIVITY [id number] ACTIV ITY Lab Routine TTP (thrombotic thrombocytopenic purpura) 10/27/2022 9:07 AM EST [facility] [id number] ACTIVITY [id number] ACTIV ITY Lab Routine TTP (thrombotic thrombocytopenic purpura) 02/15/2024 8:18 AM EDT [facility] [id number] ACTIVITY [id number] ACTIV ITY Lab Routine TTP (thrombotic thrombocytopenic purpura) 09/26/2024 11:19 AM EST [facility] [id number] ACTIVITY [id number] ACTIV ITY Lab Routine TTP (thrombotic thrombocytopenic purpura) 01/16/2025 9:59 AM EDT [facility] [id number] ACTIVITY [id number] ACTIV ITY Lab Routine TTP (thrombotic thrombocytopenic purpura) 08/07/2025 8:17 AM [facility] [id number] ACTIVITY AN D IGG AB W/REFLEX TO INHIBITOR [id number] ACTIVITY AND IGG AB W/REFLEX TO INHIBITOR Lab Routine TTP (thrombotic thrombocytopenic purpura) 07/21/2022 9:50 AM [facility]T [facility] [id number] ACTIVITY AN D IGG AB W/REFLEX TO INHIBITOR [id number] ACTIVITY AND IGG AB W/REFLEX TO INHIBITOR Lab Routine TTP (thrombotic thrombocytopenic purpura) 01/04/2024 11:49 AM EDT [facility] [id number] ACTIVITY AN D IGG AB W/REFLEX TO INHIBITOR [id number] ACTIVITY AND IGG AB W/REFLEX TO INHIBITOR Lab Routine TTP (thrombotic thrombocytopenic purpura) 02/15/2024 8:18 AM EDT [facility] [id number] ACTIVITY AN D IGG AB W/REFLEX TO INHIBITOR [id number] ACTIVITY AND IGG AB W/REFLEX TO INHIBITOR Lab Routine TTP (thrombotic thrombocytopenic purpura) 09/26/2024 11:19 AM EST [facility] [id number] ACTIVITY AN D IGG AB W/REFLEX TO INHIBITOR [id number] ACTIVITY AND IGG AB W/REFLEX TO INHIBITOR Lab Routine TTP (thrombotic thrombocytopenic purpura) 01/16/2025 9:59 AM EDT [facility] [id number] ACTIVITY AN D IGG AB W/REFLEX TO INHIBITOR [id number] ACTIVITY AND IGG AB W/REFLEX TO INHIBITOR Lab Routine TTP (thrombotic thrombocytopenic purpura) 08/07/2025 8:17 AM EDT [facility] [id number] IGG AB [id number] IGG AB Lab Routine TTP (thrombotic thrombocytopenic purpura) 04/14/2022 8:36 AM EDT [facility] [id number] IGG AB [id number] IGG AB Lab Routine TTP (thrombotic thrombocytopenic purpura) 07/21/2022 9:50 AM EDT [facility] [id number] IGG AB [id number] IGG AB Lab Routine TTP (thrombotic thrombocytopenic purpura) 10/27/2022 9:07 AM EST [facility] [id number] IGG AB [id number] IGG AB Lab Routine TTP (thrombotic thrombocytopenic purpura) 01/04/2024 11:49 AM EDT [facility] [id number] IGG AB [id number] IGG AB Lab Routine TTP (thrombotic thrombocytopenic purpura) 02/15/2024 8:18 AM EDT [facility] [id number] IGG AB [id number] IGG AB Lab Routine TTP (thrombotic thrombocytopenic purpura) 09/26/2024 11:19 AM EST [facility] [id number] IGG AB [id number] IGG AB Lab Routine TTP (thrombotic thrombocytopenic purpura) 01/16/2025 9:59 AM EDT [facility] Alanine aminotransfe rase [Enzymatic activity/volume] in Serum or Plasma [facility] Albumin [Mass/volume ] in Serum or Plasma [facility] Alkaline phosphatase [Enzymatic activity/volume] in Serum or Plasma [facility] Amphetamine [Mass/volume] in Urine [facility] Anion gap measurement [facility] Aspartate aminotransferase [Enzymatic activity/volume] in Serum or Plasma [facility] Benzodiazepine measurement, urine [facility] Bilirubin measuremen t, urine [facility] Bilirubin, total measurement [facility] BLUE LIGHT, RESEARCH BLUE LIGHT, RESEARCH Lab Routine TTP (thrombotic thrombocytopenic purpura) Ordered: 04/14/2022 [facility] Comment on above: Ordered: 04/14/2022 BLUE LIGHT, RESEARCH BLUE LIGHT, RESEARCH Lab Routine TTP (thrombotic thrombocytopenic purpura) Ordered: 07/21/2022 [facility] Comment on above: Ordered: 07/21/2022 BLUE LIGHT, RESEARCH BLUE LIGHT, RESEARCH Lab Routine TTP (thrombotic thrombocytopenic purpura) Ordered: 10/27/2022 [facility] Comment on above: Ordered: 10/27/2022 BLUE LIGHT, RESEARCH BLUE LIGHT, RESEARCH Lab Routine TTP (thrombotic thrombocytopenic purpura) Ordered: 11/16/2023 [facility] Comment on above: Ordered: 11/16/2023 BLUE LIGHT, RESEARCH BLUE LIGHT, RESEARCH Lab Routine TTP (thrombotic thrombocytopenic purpura) Ordered: 01/04/2024 [facility] Comment on above: Ordered: 01/04/2024 BLUE LIGHT, RESEARCH BLUE LIGHT, RESEARCH Lab Routine TTP (thrombotic thrombocytopenic purpura) Ordered: 09/26/2024 [facility] Comment on above: Ordered: 09/26/2024 BLUE LIGHT, RESEARCH BLUE LIGHT, RESEARCH Lab Routine TTP (thrombotic thrombocytopenic purpura) Ordered: 01/16/2025 [facility] Comment on above: Ordered: 01/16/2025 BLUE LIGHT, RESEARCH BLUE LIGHT, RESEARCH Lab Routine TTP (thrombotic thrombocytopenic purpura) Ordered: 04/24/2025 [facility] Comment on above: Ordered: 04/24/2025 BLUE LIGHT, RESEARCH BLUE LIGHT, RESEARCH Lab Routine TTP (thrombotic thrombocytopenic purpura) Ordered: 08/07/2025 [facility] Comment on above: Ordered: 08/07/2025 BUN/Creatinine ratio [facility] Calcium [Mass/volume ] in Serum or Plasma [facility] Carbon dioxide, tota l [Moles/volume] in Serum or Plasma [facility] CBC W Auto Different ial panel - Blood [facility] Chloride [Moles/volu me] in Serum or Plasma [facility] Cholesterol [Mass/volume] in Serum or Plasma [facility] Cholesterol in LDL [Mass/volume] in Serum or Plasma [facility] Cocaine measurement, urine [facility] Comprehensive metabo lic 2000 panel - Serum or Plasma [facility] Creatinine [Moles/volume] in Serum or Plasma [facility] Erythrocyte mean corpuscular volume determination [facility] EXTRA LAVENDER TOP EXTRA LAVENDE R TOP Lab Routine Encounter for follow-up 07/21/2022 9:50 AM EDT [facility] EXTRA TUBES EXTRA TUBES Lab Routine Encounter for follow-up 07/21/2022 9:50 AM EDT [facility] Glucose [Mass/volume ] in Serum or Plasma [facility] Hematocrit [Volume Fraction] of Blood [facility] Hemoglobin [Mass/vol ume] in Blood [facility] Hemoglobin [Presence ] in Urine [facility] Hemoglobin A1c/Hemoglobin.total in Blood [facility] Hemoglobin A1c/Hemoglobin.total in Blood [facility] High density lipopro tein measurement [facility] LAV DRAW, RESEARCH LAV DRAW, RES EARCH Lab Routine TTP (thrombotic thrombocytopenic purpura) Ordered: 04/14/2022 [facility] Comment on above: Ordered: 04/14/2022 LAV DRAW, RESEARCH LAV DRAW, RES EARCH Lab Routine TTP (thrombotic thrombocytopenic purpura) Ordered: 07/21/2022 [facility] Comment on above: Ordered: 07/21/2022 LAV DRAW, RESEARCH LAV DRAW, RES EARCH Lab Routine TTP (thrombotic thrombocytopenic purpura) Ordered: 11/16/2023 [facility] Comment on above: Ordered: 11/16/2023 LAV DRAW, RESEARCH LAV DRAW, RES EARCH Lab Routine TTP (thrombotic thrombocytopenic purpura) Ordered: 01/04/2024 [facility] Comment on above: Ordered: 01/04/2024 LAV DRAW, RESEARCH LAV DRAW, RES EARCH Lab Routine TTP (thrombotic thrombocytopenic purpura) Ordered: 09/26/2024 [facility] Comment on above: Ordered: 09/26/2024 LAV DRAW, RESEARCH LAV DRAW, RES EARCH Lab Routine TTP (thrombotic thrombocytopenic purpura) Ordered: 01/16/2025 [facility] Comment on above: Ordered: 01/16/2025 LAV DRAW, RESEARCH LAV DRAW, RES EARCH Lab Routine TTP (thrombotic thrombocytopenic purpura) Ordered: 04/24/2025 [facility] Comment on above: Ordered: 04/24/2025 LAV DRAW, RESEARCH LAV DRAW, RES EARCH Lab Routine TTP (thrombotic thrombocytopenic purpura) Ordered: 08/07/2025 [facility] Comment on above: Ordered: 08/07/2025 Leukocytes [#/volume ] in Blood [facility] Lipid 1996 panel - S isabelle or Plasma [facility] Magnesium [Mass/volu me] in Serum or Plasma [facility] Mean corpuscular hemoglobin concentration determination [facility] Mean corpuscular hemoglobin determination [facility] Measurement of 3,4-methylenedioxymetham phetamine in urine [facility] Measurement of keton es in urine using dipstick [facility] Measurement of renal function [facility] Methadone measuremen t, urine [facility] Microscopic urinalysis [facility] Neutrophil count [facility] Neutrophil percent differential count [facility] Patient Education [facility] Work Phone: Patient referral [facility] Work Phone: pH of Urine [facility] pH of Urine [facility] Phencyclidine [Prese nce] in Urine [facility] Platelets [#/volume] in Blood [facility] Potassium [Moles/vol ume] in Serum or Plasma [facility] Red blood cell count [facility] Red cell distributio n width determination [facility] Serum inorganic phosphate measurement [facility] Sodium [Moles/volume ] in Serum or Plasma [facility] Specific gravity of Urine [facility] Tobacco use cessatio n education [facility] Total protein measurement [facility] Triglycerides measurement [facility] Urea nitrogen [Mass/volume] in Serum or Plasma [facility] Urinalysis, blood, qualitative [facility] Urine barbiturate measurement [facility] Urine cannabinoid measurement [facility] Urine dipstick for glucose [facility] Urine dipstick for leukocyte esterase [facility] Urine dipstick for nitrite [facility] Urine dipstick for protein [facility] Urine examination [facility] Urine microalbumin/creatinine ratio measurement [facility] Urine microscopy: epithelial cells [facility] Urine Microscopy: wh ite cells [facility] Urine opiate measurement [facility] Urobilinogen [Presen ce] in Urine [facility] End: 03-17-2024 US scan of abdominal aorta [facility] [employer] Work Phone: Comment on above: Once for 1 Occurrences starting 03/17/20 24 until 03/17/2024 VLDL cholesterol measurement [facility] Immunizations Immunization Date Immunization Notes Care Provider Nadir pedraza 10-27-2022 diphtheria, tetanus toxoids and acellular pertussis vaccine, unspecified formulation Lonnie BOWEN Work Phone: [facility] 10-27-2022 tetanus toxoid, redu sunny diphtheria toxoid, and acellular pertussis vaccine, adsorbed; Translations: [TDAP VACCINE >10YO 0.5ML IM] Abdirahman Rutherford MD Work Phone: [facility] 09-29-2022 influenza virus vaccine, unspecified formulation Abdirahman Rutherford MD Work Phone: [facility] 09-28-2021 influenza virus vaccine, unspecified formulation Abdirahman Rutherford MD Work Phone: [facility] 04-29-2021 Covid ([employer]) [facility] 02-04-2021 Covid (Moderna) Dr. Katia beckwith MD Work Phone: [facility] 01-07-2021 Covid (Moderna) Dr. Katia beckwith MD Work Phone: [facility] 01-08-2016 tetanus toxoid, redu sunny diphtheria toxoid, and acellular pertussis vaccine, adsorbed NIDAL CHOUJAA DO [facility] Payers Date Payer Category Payer Self-pay [id number] 2023 Medicaid [id number] 2023 Unknown [id number] 2023 Medicaid (Managed Care) [employer] [id number] 2022 Medicaid [employer] ODM [id number] 2022-Present [phone] [address] [place] [address] Medicaid HMO [id number] 2015 Unknown [id number] 2015 Unknown [id number]. [id number] 2015 Unknown [id number] 1981 Unknown [id number] 2.840.1.785298.3.579.2. 627 1981 Unknown [id number] 2..1.164596.3.579.2. 627 1981 Unknown [id number] 2.0.1.657619.3.579.2. 651 1981 Unknown [id number] .1.591542.3.579.2. 1243 1981 Unknown [id number] .1.830433.3.579.2. 594 1981 Unknown [id number] .1.103944.3.579.2. 594 1981 Unknown [id number] 2.1.674877.3.579.2. 594 1981 Unknown [id number] .1.285403.3.579.2. 594 1981 Unknown [id number] .1.376532.3.579.2. 594 1981 Unknown [id number] .1.060260.3.579.2. 594 1981 Unknown [id number] 12.01.830.1.471825.3.579.2. 594 1981 Unknown [id number] .1.235585.3.579.2. 594 Unknown [id number] Unknown [id number] Unknown [id number] 20.1.532152.3.579.2. 462 Unknown [id number] 2.16.840.1.399806.3.579.2. 462 Unknown [id number] 2.16.840.1.657582.3.579.2. 462 Unknown [id number] 2.16.840.1.518827.3.579.2. 462 Unknown [id number] 2.16.840.1.875033.3.579.2. 462 Unknown [id number] 2.16.840.1.596962.3.579.2. 462 Unknown [id number] 2.16.840.1.323687.3.579.2. 462 Unknown [id number] 2.16.840.1.181939.3.579.2. 462 Unknown [id number] 2.16.840.1.770554.3.579.2. 462 Unknown [id number] 2.16840.1.544473.3.579.2. 462 Unknown [id number] 2.16840.1.308140.3.579.2. 462 Unknown [id number] 2.16840.1.651885.3.579.2. 462 Unknown [id number] 2.16840.1.455417.3.579.2. 462 Social History Date Type Detail Facility Start: 01-06-2022 End: 02-23-2024 Tobacco smoking status UTIS Unknown if ever smoked [facility] Start: 03-13-2019 Rare [facility] Start: 01-12-2015 None [facility] Start: 03-13-2019 Alone [facility] Start: 02-01-2021 Vapor [facility] Start: 1980 Sex Assigned At Male [facility] Start: 02-12-1994 End: 02-15-2024 Tobacco smoking status NHIS Smokes tobacco daily [facility] Start: 02-12-1994 History of tobacco use Cigarette Smoker [facility] Start: 09-22-2021 End: 08-07-2025 Cigarettes smoked current (pack per day) - Reported 1 [facility] Start: 09-22-2021 End: 02-15-2024 Tobacco use and exposure Former smokeless tobacco user [facility] Start: 01-27-2022 End: 08-07-2025 Alcohol intake Current non-drinker of alcohol (finding) [facility] Start: 09-22-2021 End: 09-16-2022 Tobacco Comment Keep's me calm in a stressful situation [facility] Start: 1980 Sex Assigned At Not on file [facility] Start: 01-15-2022 End: 10-27-2022 Exposure to SARS-CoV-2 (event) Unable to assess [facility] Start: 09-26-2022 End: 10-06-2022 Exposure to SARS-CoV-2 (event) Not sure [facility] Start: 09-16-2023 End: 08-07-2025 Alcohol Use Disorder Identification Test - Cons[facility] How often to you hav e a drink containing alcohol? Never [facility] How many standard dr inks containing alcohol do you have on a typical day? Patient does not drink [facility] Sex Assigned At Sex [facility] Start: 08-24-2017 Gender identity Identifies as male gender (finding) [facility] Start: 01-22-2019 Sexual orientation Heterosexual (finding) [facility] Start: 11-18-2012 Sex Male (finding) [facility] Medical Equipment Procedure Code Equipment Code Equipment Origin al Text Equipment Identifier Dates Cath Dial Hemosp lit 19cm [id number] Start: 10-26-2012 Cath Dial Hemosp lit 19cm [id number] Start: 11-02-2012 Use new needle w ith each insulin injection. [id number] Start: 10-20-2021 Use new needle w ith each insulin injection. [id number] Start: 05-26-2022 Use as instructed [id number] Start: 02-28-2024 End: 08-07-2025 Use as instructed [id number] Start: 02-28-2024 End: 08-07-2025 Pen Needle, Diab etic (Pen Needle) 31 gauge x 5/16 needle Start: 01-27-2025 Pen Needle, Diab etic (Bd Ultra-Fine Mini Pen Needle) 31 gauge x 3/16 needle Start: 07-30-2024 End: 08-23-2024 Pen Needle, Diab etic (Pen Needle) 31 gauge x 5/16 needle Start: 08-23-2024 End: 08-23-2024 Pen Needle, Diab etic (Pen Needle) 31 gauge x 5/16 needle Start: 08-23-2024 End: 11-14-2024 Pen Needle, Diab etic (Pen Needle) 31 gauge x 5/16 needle Start: 11-14-2024 End: 01-27-2025 Pen Needle, Diab etic 29 gauge x 1/2 needle Start: 02-23-2024 End: 03-26-2024 Pen Needle, Diab etic 29 gauge x 1/2 needle Start: 03-26-2024 End: 03-26-2024 Pen Needle, Diab etic 29 gauge x 1/2 needle Start: 03-26-2024 End: 08-23-2024 Pen Needle, Diab etic (Pen Needle) 31 gauge x 5/16 needle Start: 01-27-2025 Pen Needle, Diab etic (Bd Ultra-Fine Mini Pen Needle) 31 gauge x 3/16 needle Start: 07-30-2024 End: 08-23-2024 Pen Needle, Diab etic (Pen Needle) 31 gauge x 5/16 needle Start: 08-23-2024 End: 08-23-2024 Pen Needle, Diab etic (Pen Needle) 31 gauge x 5/16 needle Start: 08-23-2024 End: 11-14-2024 Pen Needle, Diab etic (Pen Needle) 31 gauge x 5/16 needle Start: 11-14-2024 End: 01-27-2025 Pen Needle, Diab etic 29 gauge x 1/2 needle Start: 02-23-2024 End: 03-26-2024 Pen Needle, Diab etic 29 gauge x 1/2 needle Start: 03-26-2024 End: 03-26-2024 Pen Needle, Diab etic 29 gauge x 1/2 needle Start: 03-26-2024 End: 08-23-2024 Pen Needle, Diab etic (Pen Needle) 31 gauge x 5/16 needle Start: 01-27-2025 Pen Needle, Diab etic (Bd Ultra-Fine Mini Pen Needle) 31 gauge x 3/16 needle Start: 07-30-2024 End: 08-23-2024 Pen Needle, Diab etic (Pen Needle) 31 gauge x 5/16 needle Start: 08-23-2024 End: 08-23-2024 Pen Needle, Diab etic (Pen Needle) 31 gauge x 5/16 needle Start: 08-23-2024 End: 11-14-2024 Pen Needle, Diab etic (Pen Needle) 31 gauge x 5/16 needle Start: 11-14-2024 End: 01-27-2025 Pen Needle, Diab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 Essential hypertension noneactive [facility] 2024 8:27am [facility] Work Phone: [phone]) 694-631304-03-2025 History of Present illness Narrative* Karli Simpson RN - 01/16/2025 10:30 AM EDT Any petechiae/bleeding/unusual bruising? YES/NO: yes - neck [...] stool? No Reports he is seeing a mission assessment specialist for his neck pain and headaches on 01/23/25. Reports he only sleeping 3-4 hours per night. * Junior Banda MD - 01/16/2025 10:30 AM EDT CHIEF COMPLAINT No chief complaint on file. HISTORY OF PRESENT ILLNESS Jairo Adkins Jr. is a 44 y.o. 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 Hematology History Mr. Adkins was initially diagnosed in 2003 with TTP after he presented to local ED in [place] with diffuse ecchymoses and low platelet count. [...] of Rituxan and PLEX. His TTP and OGAVXF74 activity had been stable, then in December 2020 his FLEKBJ78 activity decreased to less than 30% and [...] and is negative except as noted in HOH. PHYSICAL EXAM BP 114/73 (BP Position: Sitting) [...] Auto 2.51 0.83 - 3.57 K/uL Abs [place] Auto 0.71 0.24 - 0.93 K/uL Abs [...] and we will continue to monitor his HXOYYM51 activity and repeat rituximab if it drops <20%. Plan - Ok to proceed with Endopath study today - Discussed smoking cessation - follow up with [facility] 01/23 - Re-establish with PCP pending - RTC 3 months Junior Banda MD [facility] Hematology/Oncology Fellow PGY4 Pager [phone] I interviewed and examined Mr. Adkins and I agree with the findings and plan as dictated by Dr. Banda. Mood disorder issues which may be related to his TTP diagnosis as well as chronic headaches. RKXMSD73 activity to predict relapse risk of TTP is pending at this time. He will be participating in the EndoPat study of microvascular disease in TTP. -Halima Rutherford * Cassie Brock RN - 01/16/2025 10:30 AM EDT Patient evaluated in Exam Clinic today, the following completed today. Collection of specimen with instructions (urine, sputum, nasal/throat culture) : Urine documented in this [facility]OS[facility] Instructions* Patient Instructions* Cassie Brock RN - 01/16/2025 10:30 AM [...] Auto 2.51 0.83 - 3.57 K/uL Abs [place] Auto 0.71 0.24 - 0.93 K/uL Abs Eos Auto 0.61 (H) 0.00 - 0.48 K/uL Abs Baso Auto 0.07 0.00 - 0.09 K/uL URINE PROTEIN/CREA RATIO, RANDOM Result Value Ref Range Urine Creatinine 137.79 mg/dL Urine Protein 12 mg/dL Prot/Creat Ratio 0.087 mg/mg documented in this [facility]12-12-2024 History of Present illness Narrative* Abdirahman Rutherford MD - 09/26/2024 2:48 PM EST Mr. Adkins is a 44-year-old male who [...] to his many years working as a [employer] employee with heavy lifting and strain on [...] with the use of preemptive rituximab for BXNBWD63 relapses. It has been many years since he has had acute TTP relapse, and we hope that the trend will continue with close monitoring of his QLCWHQ06 activity. He does have risk factors for [...] already seen at baseline in TTP patients. * Cassie Brock RN - 09/26/2024 1:00 PM EST Patient evaluated in [facility] Exam Clinic today, the following completed today. Collection of specimen with instructions (urine, sputum, nasal/throat culture) : urine documented in this encounterL[facility]12-12-2024 Instructions* Patient Instructions* Lisa Lovell RN - 09/26/2024 1:00 PM [...] Auto 2.20 0.83 - 3.57 K/uL Abs [place] Auto 0.78 0.24 - 0.93 K/uL Abs Eos Auto 0.55 (H) 0.00 - 0.48 K/uL Abs Baso Auto 0.06 0.00 - 0.09 K/uL documented in this encounterLima [facility]07-29-2024 History of Present illness Narrative* Monique Tanner MD - 05/13/2024 8:30 AM EDT Subjective: HPI: Jairo Adkins JrLuis Armando is a pleasant 44 y.o. who presents to my clinic for the first time with a chiefcomplaint of right shoulder pain. The patient was referred by Chencho Avendaño,*. Patient referred for Barbotage procedure. The patient reports right shoulder pain has persisted. The patient has a history of DM and TTP. Thepatient has a last Hgb A1c of 8.9 [...] Orthopedic surgery progress notes Impression: Jairo Adkins Jr. is a 44 y.o. who presents with a chief complaint of right shoulder pain. The patient's history, physical examination, and imaging are most consistent with calcific tendinopathy. After discussion with the patient, will proceed with Barbotage procedure without use of corticosteroid/SAB CSI. Plan: 1. Patient Education: The diagnosis and treatment plan were discussed in detail with the patient attoday's visit and any questions were addressed. We [...] Labs/Other: None. 11. Follow-up: BROCK Tanner MD, ATC Sports Medicine Physician Checker In Clinical Professor Department of Physical Medicine and Rehabilitation * Monique Tanner MD - 05/13/2024 8:30 AM EDTAssociated Order(s): UPPER EXTREMITY INJECTION: right supraspinatus tendon [...] Monique Tanner MD, ATC Sports Medicine Physician Checker In Clinical Professor Department of Physical Medicine and Rehabilitation documented in this encounterL[facility]07-29-2024 Instructions* Patient Instructions* Lela Mendoza ATC - 05/13/2024 8:30 AM EDT Aspiration: Post-Injection Instructions You underwent an aspiration at today's appointment. The goal of this is to obtatin fluid to send for labs. If any fluid was obtained during today's procedure, it will be sent to the lab as requested by your referring provider. The injection/aspiration consists of an anesthetic and sometimes a smallamount of normal saline. Post Injection Care: Activity [...] water for 2-3 days (i.e. bath, pool, hottub). It is OK to shower and let [...] the procedure. However, you may use the nrmv-dnu-ykybjav pain medication, non- steroidal anti-inflammatories (i.e. ibuprofen, Advil, Aleve) or acetaminophen (Tylenol) as directed on the container unless contraindicated due to pre- existing medical conditions. Possible Side Effects: Very few [...] to your referring provider. documented in this encounterLima [facility]06-27-2024 History of Present illness Narrative* Chencho Avendaño MD - 04/11/2024 11:45 AM EDT Chief Complaint Patient presents with Left Shoulder - Pain 44 y.o. male c/o BL shoulder pain - R shoulder worse than the L shoulder since November,. Pain located on top of shoulder and radiates down the arm. Described as sharp and aching, agg with activity or ROM. Reports n/t in hand and fingers, Denies mechanical sx. No PHx of Injury, Sx, PT, and Inj.Tx: nothing Right Shoulder - Pain HPI: This [...] There is pain with Neer impingement testing. Monroe's test is positive. Speed's sign is positive. [...] arrival at next appointment. documented in this encounterLima [facility] Hospital06-02-2024 Hospital Discharge instructions* Discharge Instructions* Akbar Boogie MD - 03/17/2024 3:23 PM EDT Warm soaks and antibiotics to localize and hopefully drain abscess * Attachments The following attachments cannot be sent through Care Everywhere. * Cellulitis (Skin Infection), Adult ED (Austrian) documented in this [facility]06-02-2024 Emergency department Note* Akbar Boogie MD - 03/17/2024 2:47 PM EDT EMERGENCY DEPARTMENT ENCOUNTER Pt Name: Jairo Adkins [...] to the emergency department complaining of abscess. Patientstates starting 3 to 4 days ago he developed pain and swelling of his left butt cheek. Similar to his previous buttocks abscesses. Last was 3 months ago. Tetanus immunization up-to-date. No fevers orchills. Hurts to touch. Hurts to sit. He was hoping it would go away but when sfwu-csi-mjxmxhj medications did not work he came to [...] 03:21:29 PM PATIENT REFERRED TO: LD ROMERO [address] [place] [address] DISCHARGE MEDICATIONS: New Prescriptions CEPHALEXIN (KEFLEX) [...] freeto contact the dictating provider for clarification.) Akbar Boogie MD (electronically signed) Emergency Medicine Provider Akbar Boogie MD 03/17/24 1602 * Antonette He RN - 03/17/2024 2:47 PM EDT Patient arrived with steady gait to room 2. Patient complains of boil on left buttocks x 4 days. Patient denies any drainage, nausea, vomiting, fever or chills. Pain 10/10. documented in this [facility]06-02-2024 Emergency department Triage note* Antonette He RN - 03/17/2024 2:47 PM EDT Patient arrived with steady gait to room 2. Patient complains of boil on left buttocks x 4 days. Patient denies any drainage, nausea, vomiting, fever or chills. Pain 10/10. [id number] Emergency department Note* Akbar Boogie MD - 03/17/2024 2:47 PM EDT EMERGENCY DEPARTMENT ENCOUNTER Pt Name: Jairo Adkins [...] to the emergency department complaining of abscess. Patientstates starting 3 to 4 days ago he developed pain and swelling of his left butt cheek. Similar to his previous buttocks abscesses. Last was 3 months ago. Tetanus immunization up-to-date. No fevers orchills. Hurts to touch. Hurts to sit. He was hoping it would go away but when gwgc-nmv-sotvwqs medications did not work he came to [...] 03:21:29 PM PATIENT REFERRED TO: LD CASAS [address] [place] [address] DISCHARGE MEDICATIONS: New Prescriptions CEPHALEXIN (KEFLEX) [...] freeto contact the dictating provider for clarification.) Akbar Boogie MD (electronically signed) Emergency Medicine Provider Akbar Boogie MD 03/17/24 1602 [id number] Hospital course Narrative* Jim Mirza MD - 02/25/2024 1:36 PM EDT Images from the original note were [...] during his recent hospital stay at [facility]. As you may know, Jairo Adkins Jr., is a 44 y.o. male with a past medical history of with PMH of obesity, poorly controlled diabetes mellitus presented to the ED after leaving against medical advice from [facility]. Hyperglycemia likely secondary to non-compliance to treatment, although patient denied this. While waiting for transfer to inpatient bed, the patient became frustrated and decided to leave against medical advice, I lilliam to the bedside to senior counsel him against leaving against medical advice, patient [...] TO ENDOCRINOLOGY - DIABETES IP CONSULT TO SHRIMPER IMAGING/PROCEDURES/RESULTS XR CHEST 1 VIEW PORTABLE Final Result IMPRESSION: Subtle streaky opacities of the left lung base may represent an infectious/inflammatory process. Should you require further information or copies of results or reports please contact [facility] Information [facility] @ [phone] LABS AT TIME OF DISCHARGE Lab Results [...] HOME AT DISCHARGE [place] [address] [address] MEDICATIONS Medication List for when [...] No follow-up provider specified. Jim Robbins MD Electric Motor Fitter-Clinical, Division of Hospital Medicine [facility] 02/25/2024 1:37 PM documented in this encounterOSU [facility] Emergency department Note* Corina Rubin RN - 02/25/2024 1:18 PM EDT 1318: Patient wanting to leave AMA d/t [...] discussing risks involved with leaving. Patient verbalized understandingand refused to stay. Patient left AMA. [facility]05-12[facility] Emergency department Note* Corina Rubin RN - 02/25/2024 1:18 PM EDT 1318: Patient wanting to leave AMA d/t [...] discussing risks involved with leaving. Patient verbalized understandingand refused to stay. Patient left AMA. * SRAVAN Arana - 02/25/2024 6:04 AM EDT Signout: Jairo Adkins Jr. 44 y.o. male [...] DM and chronic pain who presents from OSH with hyperglycemia. Reports recently was on insulin [...] and endocrine consult. SRAVAN Arana 02/25/24 0821 * Lois Clifford, - 02/25/2024 5:29 AM EDT Images from the original note [...] a pMHx of TTP who [facility] for high blood glucose. Hew as recently admitted and left AMA from [facility] because he states they were not [...] or vomiting. He [facility] but no one has called to schedule it for him. height is 1.753 m (5' 9). His temperature is 98.1 F (36.7 C). His blood pressure is 102/57 and hispulse is 91. His respiration is 16 and [...] accurately reflects our care. Lois Clifford DO Electric Motor Fitter of Emergency Medicine Lois Clifford DO 02/25/24 0532 * Geovanna Senior, JAM-PHARMACY MANAGER - 02/25/2024 5:12 AM EDT History Chief Complaint Patient presents with High Blood Sugar 44 y.o. male with PMH TTP, DM, and chronic pain issues presents after leaving AMA from OSH with concern for hyperglycemia. He reports that he has been having glucose issues for a couple of days and was admitted to [facility] for his hyperglycemia. He reports that he was on an insulin drip but left AMA because they wasn't treating me right. He notes increase urination and increasedthirst but denies fevers, chills, headache, dizziness/lightheadedness, chest [...] by the patient and medical records. No surface supply breathing apparatus was used. Past Medical History: Diagnosis Date [...] Auto 3.38 0.83 - 3.57 K/uL Abs [place] Auto 0.93 0.24 - 0.93 K/uL Abs [...] would recommend ED observation for glucose education. Ifany acute findings may require admission for management. This is a shared visit with Dr Clifford. The prescribing of all medications for this patient was discussed with the attending physician. ANDRÉS Leavitt 02/25/24 0615 * Roger Chin RN - 02/25/2024 4:50 AM EDT Bed: E002 Expected date: Expected time: Means of arrival: Comments: Triage * Cassie Posadas RN - 02/25/2024 2:36 AM EDT Patient c/o hyperglycemia, last blood sugar was 360, has taken his insulin and it has continued to rise throughout day. Patient having increased thirst and frequent urination. documented in this encounterLima [facility] Hospital05-12-2024 Consult note* Ernie Baird MD - 02/25/2024 10:51 AM EDTAssociated Order(s): IP CONSULT TO ENDOCRINOLOGY - DIABETES Images from the original note were not included. [facility] Inpatient Diabetes Consult - Team 2 *For provider monorail operator, please use [facility]Genda->[facility]-> Internal Medicine-> Endocrinology & Metabolism-> [...] care. If you have questions please use QDejuana->[facility]-> Internal Medicine-> Endocrinology & Metabolism-> Team 2 to identify monorail operator pager. We will follow glucose trends with [...] He was interviewed at his bedside in [facility]. Per review of his chart and discussion with patient he has a significant history of type 2 diabetes. He patient presented to the [facility] on 02/22 with symptomatic hyperglycemia and [...] this since December (has been trying to getin contact with his PCP for refills without success). He is not checking his blood sugar at home frederic is in need of supplies. He reports [...] smoking cigarettes. He started smoking about 30 yearsago. He has a 60.1 pack-year smoking history. He has quit using smokeless tobacco. DKA occurrences: no Home blood glucoses: glucose meter: not checking since December as he needs testing supplies Immunization History Administered Date(s) Administered 5598-2326 COVID-19 monovalent vaccine, AD26, Karla 0.5 ML 04/29/202120206016-9064 COVID-19 monovalent vaccine, mRNA, Moderna, 50 mcg/0.25 [...] ABSENT 02/25/2024 No results found for: TSH, UBM47GTX, IXP05BND, TSHBASELINE, TSHULTRASEN, T3FREE, U4DPVGQLJ, A6GBFZK, N1GJSRCT, T4FREE, TPOAB CREATININE, URINE POCT Date Value [...] 06/20/2021 NOT DETECTED NOT DETECTED Final Comment: [facility] Negative results do not preclude [...] or clinically deteriorating. No results found for: [id number] [facility] Work Phone: 1(778) 699-736005-12-2024 Consult note* Ernie Baird MD - 02/25/2024 10:51 AM EDTAssociated Order(s): IP CONSULT TO ENDOCRINOLOGY - DIABETES Images from the original note were not included. [facility] Inpatient Diabetes Consult - Team 2 *For provider monorail operator, please use [facility]->[facility]-> Internal Medicine-> Endocrinology & Metabolism-> [...] care. If you have questions please use [facility]Genda->[facility]-> Internal Medicine-> Endocrinology & Metabolism-> Team 2 to identify monorail operator pager. We will follow glucose trends with [...] He was interviewed at his bedside in [facility]. Per review of his chart and discussion with patient he has a significant history of type 2 diabetes. He patient presented to the [facility] on 02/22 with symptomatic hyperglycemia and [...] this since December (has been trying to getin contact with his PCP for refills without success). He is not checking his blood sugar at home frederic is in need of supplies. He reports [...] smoking cigarettes. He started smoking about 30 yearsago. He has a 60.1 pack-year smoking history. He has quit using smokeless tobacco. DKA occurrences: no Home blood glucoses: glucose meter: not checking since December as he needs testing supplies Immunization History Administered Date(s) Administered 1590-1409 COVID-19 monovalent vaccine, AD26, Karla 0.5 ML 04/29/[id number] COVID-19 monovalent vaccine, mRNA, Moderna, 50 mcg/0.25 [...] ABSENT 02/25/2024 No results found for: TSH, OCS81XFF, JAG26OQE, TSHBASELINE, TSHULTRASEN, T3FREE, R4UDPADOZ, B3DWHGD, B9PAAGKW, T4FREE, TPOAB CREATININE, URINE POCT Date Value [...] 06/20/2021 NOT DETECTED NOT DETECTED Final Comment: [facility] Negative results do not preclude [...] or clinically deteriorating. No results found for: RSQUEZV8HQK documented in this encounterLima [facility] Hospital05-12-2024 History and physical note* Jim Mirza MD - 02/25/2024 9:17 AM EDT Images from the original note were not included. Hospital Medicine Admission History & Physical Patient: Jairo Akdins Jr., 1980, [id number] Physician: Jim Robbins MD, Attending Physician, Pager #[phone], Gen Med 6 service Date of face to face patient encounter: 02/25/2024. Assessment and Plan Jairo Adkins Jr. is a 44 y.o. male with PMH of obesity, poorly controlled diabetes mellitus presented to the ED after leaving against medical advice from [facility]. Hyperglycemia: without evidence of diabetic ketoacidosis. [...] to admission at outside hospital, but he alsoleft against medical advice from [facility]. Compliance questionable. Check Hemoglobin A1c slab depiler operator during the hospital stay. History of thrombotic [...] male that has been admitted to [facility]. Jairo Adkins Jr. is a 44 y.o. male with PMH of obesity, poorly controlled diabetes mellitus presented to the ED after leaving against medical advice from [facility]. The patient ran out of insulin, reports he was unable to get in touch with his PCP after he ran outof insulin, patient presented to the [facility] on 02/22 and they admitted him for hyperosmolar state and was started on insulin drip, he was transitioned to basal bolus regimen and heleft against medical advice on Monday and went home, reports he was taking insulin as prescribed (but fill history only shows Lantus), he was unclear about the instructions on how to take Lantus. Patient denied any wilful non-compliance to treatment, but reports unable to get the insulin prescribedby his PCP. No fever, chills, or altered [...] for routine diabetes management. Continuous Blood Gluc Wheel Adjuster (FreeStyle Roxi 14 Day [place]) Device No No Sig: Use to check blood sugar using the Freestyle Roxi sensors Patient not taking: Reported on 01/04/2024 Continuous Blood Gluc Sensor (FreeStyle Roxi 14 Day Sensor) [facility] No No Sig: Use to check blood sugars using the Freestyle Roxi [place]. Change sensor every 14 days. Patient not [...] laboratory and imaging studies. Jim Robbins MD Electric Motor Fitter-Clinical, Division of Hospital Medicine [facility] 02/25/2024 9:17 AM [facility]05-12-[facility] History and physical note* Jim Mirza MD - 02/25/2024 9:17 AM EDT Images from the original note were not included. Hospital Medicine Admission History & Physical Patient: Jairo Adkins Jr., 1980, [id number] Physician: Jim Robbins MD, Attending Physician, Pager #[phone], Gen Med 6 service Date of face to face patient encounter: 02/25/2024. Assessment and Plan Jairo Adkins Jr. is a 44 y.o. male with PMH of obesity, poorly controlled diabetes mellitus presented to the ED after leaving against medical advice from [facility]. Hyperglycemia: without evidence of diabetic ketoacidosis. [...] to admission at outside hospital, but he alsoleft against medical advice from [facility]. Compliance questionable. Check Hemoglobin A1c slab depiler operator during the hospital stay. History of thrombotic [...] male that has been admitted to [facility]. Jairo Adkins Jr. is a 44 y.o. male with PMH of obesity, poorly controlled diabetes mellitus presented to the ED after leaving against medical advice from [facility]. The patient ran out of insulin, reports he was unable to get in touch with his PCP after he ran outof insulin, patient presented to the [facility] on 02/22 and they admitted him for hyperosmolar state and was started on insulin drip, he was transitioned to basal bolus regimen and heleft against medical advice on Monday and went home, reports he was taking insulin as prescribed (but fill history only shows Lantus), he was unclear about the instructions on how to take Lantus. Patient denied any wilful non-compliance to treatment, but reports unable to get the insulin prescribedby his PCP. No fever, chills, or altered [...] for routine diabetes management. Continuous Blood Gluc Wheel Adjuster (FreeStyle Roxi 14 Day [place]) Device No No Sig: Use to check blood sugar using the Freestyle Roxi sensors Patient not taking: Reported on 01/04/2024 Continuous Blood Gluc Sensor (FreeStyle Roxi 14 Day Sensor) [facility] No No Sig: Use to check blood sugars using the Freestyle Roxi [place]. Change sensor every 14 days. Patient not [...] 129/4.1/3.8/1.7/9.9 (02/24 246) Bun/Creat/Cl/CO2/Glucose: 18/0.86/94/27/406 (02/24 246-02/24 07) Body mass index is 42.65 kg/m . I have reviewed the patient's medical history in detail and updated the computerized patient record. Reviewed all the relevant laboratory and imaging studies. Jim Robbins MD Electric Motor Fitter-Clinical, Division of Hospital Medicine [facility] 02/25/2024 9:17 AM documented in this encounterOSU [facility] Physician Emergency department Note* SRAVAN Arana - 02/25/2024 6:04 AM EDT Signout: Jairo Adkins Jr. 44 y.o. male [...] DM and chronic pain who presents from OSH with hyperglycemia. Reports recently was on insulin [...] and endocrine consult. SRAVAN Arana 02/25/24 0821 [facility] Work Phone: [phone]) 794-564405-12-2024 Physician Emergency department Note* Lois Clifford, - 02/25/2024 5:29 AM EDT Images from the original note [...] a pMHx of TTP who [facility] for high blood glucose. Hew as recently admitted and left AMA from [facility] because he states they were not [...] or vomiting. He states she shoul hdave [facility] appointment coming up next week but no one has called to schedule it for him. height is 1.753 m (5' 9). His temperature is 98.1 F (36.7 C). His blood pressure is 102/57 and hispulse is 91. His respiration is 16 and [...] accurately reflects our care. Lois Clifford DO Electric Motor Fitter of Emergency Medicine Lois Clifford DO 02/25/24 0532 [facility]05-12-[facility] Physician Emergency department Note* Geovanna Senior, [facility] SPECIALIST-PHARMACY MANAGER - 02/25/2024 5:12 AM EDT History Chief Complaint Patient presents with High Blood Sugar 44 y.o. male with PMH TTP, DM, and chronic pain issues presents after leaving AMA from OSH with concern for hyperglycemia. He reports that he has been having glucose issues for a couple of days and was admitted to [facility] for his hyperglycemia. He reports that he was on an insulin drip but left AMA because they wasn't treating me right. He notes increase urination and increasedthirst but denies fevers, chills, headache, dizziness/lightheadedness, chest [...] by the patient and medical records. No surface supply breathing apparatus was used. Past Medical History: Diagnosis Date [...] Auto 3.38 0.83 - 3.57 K/uL Abs [place] Auto 0.93 0.24 - 0.93 K/uL Abs [...] would recommend ED observation for glucose education. Ifany acute findings may require admission for management. This is a shared visit with Dr Clifford. The prescribing of all medications for this patient was discussed with the attending physician. ANDRÉS Leavitt 02/25/24 0615 [facility] Work Phone: 1(717) 428-872805-12-2024 Emergency department Note* Roger Chin RN - 02/25/2024 4:50 AM EDT Bed: E002 Expected date: Expected time: Means of arrival: Comments: Triage [facility]05-12-2024 Emergency department Note* Cassie Posadas RN - 02/25/2024 2:36 AM EDT Patient c/o hyperglycemia, last blood sugar was 360, has taken his insulin and it has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 [facility] History of Present illness Narrative* Mark Smith, [...] daily., Disp: , Rfl: Continuous Blood Gluc Wheel Adjuster (FreeStyle Roxi 14 Day Ripplemead) Device, Use to check blood sugar using the Freestyle Roxi sensors, Disp: 1 Each, Rfl: 0 Continuous Blood Gluc Sensor (FreeStyle Roxi 14 Day Sensor) Misc, Use to check blood sugars using the Freestyle Roxi Ripplemead. Change sensor every 14 days., Disp: 2 Each, Rfl: 11 Dulaglutide (Trulicity) 1.5 MG/0.5ML Solution Pen-injector injection, Inject 0.5 mL under the skin once a week., Disp: 2 mL, Rfl: 11 Glucagon, rDNA, (Glucagon Emergency) 1 MG Kit, Use as needed for severe low blood sugar (Hypoglycemia), Disp: 3 kit, Rfl: 1 Insulin Pen Needle (PEN NEEDLES 31GX5/16) 31G X 8 MM [facility], Use new needle with [...] sensation is intact when tested with 5.07 [place] Nina monofilament bilaterally. Musculoskeletal: 5/5 muscle strength [...] pertinent to this visit. documented in this encounterLima [facility] Hospital12-02-2022 History of Present illness Narrative* Mark Smith [...] daily., Disp: , Rfl: Continuous Blood Gluc Wheel Adjuster (FreeStyle Roxi 14 Day Ripplemead) Device, Use to check blood sugar using the Freestyle Roxi sensors, Disp: 1 Each, Rfl: 0 Continuous Blood Gluc Sensor (FreeStyle Roxi 14 Day Sensor) Misc, Use to check blood sugars using the Freestyle Roxi Ripplemead. Change sensor every 14 days., Disp: 2 Each, Rfl: 11 Dulaglutide (Trulicity) 1.5 MG/0.5ML Solution Pen-injector injection, Inject 0.5 mL under the skin once a week., Disp: 2 mL, Rfl: 11 Glucagon, rDNA, (Glucagon Emergency) 1 MG Kit, Use as needed for severe low blood sugar (Hypoglycemia), Disp: 3 kit, Rfl: 1 Insulin Pen Needle (PEN NEEDLES 31GX5/16) 31G X 8 MM [facility], Use new needle with [...] sensation is intact when tested with 5.07 [place] Nina monofilament bilaterally. Musculoskeletal: 5/5 muscle strength [...] pertinent to this visit. documented in this encounterLima Memorial Hospital12-02-2022 Miscellaneous Notes* Addendum Note - Shira Cota DPM - 09/16/2022 12:00 PM ESTAddended by: SHIRA COTA on: 09/22/2022 08:47 AM Modules accepted: Orders * Addendum Note - Shira Cota DPM - 09/16/2022 12:00 PM ESTAddended by: SHIRA COTA on: 09/23/2022 07:55 AM Modules accepted: Orders documented in this encounterLima [facility] Hospital12-02-2022 Note* Addendum Note - Shira Cota DPM - 09/16/2022 12:00 PM ESTAddended by: SHIRA COTA on: 09/22/2022 08:47 AM Modules accepted: Orders [facility]12-02-[facility] Note* Addendum Note - Shira Cota DPM - 09/16/2022 12:00 PM ESTAddended by: SHIRA COTA on: 09/23/2022 07:55 AM Modules accepted: Orders [facility]10-06-[facility] History of Present illness Narrative* Lucy Green RN - 07/21/2022 8:30 AM EDT After visit summary was printed and given to patient. Discharge instructions and follow up appointments reviewed with patient. IHIS Fall prevention education handout included in AVS at time of discharge. All questions answered. Patient verbalized understanding. Patient and family encouraged to call with any additional questions * Edilia Robles APRN-PHARMACY MANAGER - 07/21/2022 8:30 AM EDT CHIEF COMPLAINT [...] after he presented to local ED in [place] with diffuse ecchymoses and low platelet count. [...] of Rituxan and PLEX. His TTP and METDNQ09 activity had been stable, then in December 2020 his EOKANT79 activity decreased to less than 30% and [...] mouth 3 times daily. Continuous Blood Gluc Wheel Adjuster (FreeStyle Roxi 14 Day Ripplemead) Device Use to check blood sugar using the Freestyle Roxi sensors Continuous Blood Gluc Sensor (FreeStyle Roxi 14 Day Sensor) [facility] Use to check blood sugars using the Freestyle Roxi Ripplemead. Change sensor every 14 days. Dulaglutide (Trulicity) 1.5 MG/0.5ML Solution Pen-injector injection Inject 0.5 mL under the skin once a week. Glucagon, rDNA, (Glucagon Emergency) 1 MG Kit Use as needed for severe low blood sugar (Hypoglycemia) Insulin Pen Needle (PEN NEEDLES 31GX5/16) 31G X 8 MM [facility] Use new needle with each insulin injection. [...] and is negative except as noted in HOH. PHYSICAL EXAM BP 126/86 (BP Position: Sitting) [...] Auto 2.39 0.83 - 3.57 K/uL Abs [place] Auto 0.63 0.24 - 0.93 K/uL Abs [...] to the of his daughter. Plan -awaiting UAJHBX92 activity -RTC 3 months It was a pleasure meeting Jairo Adkins Jr. today. Plan was discussed and mutually agreed upon with patient. All questions answered. Encouraged the patient to reach out to clinic if anything arisesin interim. This case was discussed with Dr. Abdirahman Rutherford MD. Chana Bob APRN-PHARMACY MANAGER #[id number] I interviewed and examined Mr Adkins and [...] with questions. Jose Rutherford documented in this encounterU [facility]10-06-[facility]22 Instructions* Patient Instructions* Lucy Green RN - 07/21/2022 8:30 AM EDT Please feel free to contact the triage line at [phone] with any concerns. Hematology Primary Care Team Dr. Abdirahman Robles, JARRETT Green, FERMIN Lovett, [facility] HOSPITALVaishnavi Neves, Research Coordinator Please plan ahead and [...] applied to wood stairs to prevent sliding. Tappen a bright colored line on the edge [...] Auto 2.39 0.83 - 3.57 K/uL Abs [place] Auto 0.63 0.24 - 0.93 K/uL Abs Eos Auto 0.53 (H) 0.00 - 0.48 K/uL Abs Baso Auto 0.10 (H) 0.00 - 0.09 K/uL documented in this encounterLima [facility] Hospital07-29-2022 History of Present illness Narrative* Fran Gaston [...] daily., Disp: , Rfl: Continuous Blood Gluc Wheel Adjuster (FreeStyle Roxi 14 Day Ripplemead) Device, Use to check blood sugar using the Freestyle Roxi sensors, Disp: 1 Each, Rfl: 0 Continuous Blood Gluc Sensor (FreeStyle Roxi 14 Day Sensor) Misc, Use to check blood sugars using the Freestyle Roxi Ripplemead. Change sensor every 14 days., Disp: 2 [...] NEEDLES 31GX5/16) 31G X 8 MM Misc, Use new [...] voiced understanding. He will get tens from [employer]. Fran Gaston MD Electric Motor Fitter - Clinical Department of Anesthesiology and Pain Medicine documented in this encounterLima Memorial Hospital07-28-2022 History of Present illness Narrative* Shira Cota, DPM - 05/12/2022 8:45 AM EDT Chief Complaint: [...] daily., Disp: , Rfl: Continuous Blood Gluc Wheel Adjuster (FreeStyle Roxi 14 Day Ripplemead) Device, Use to check blood sugar using the Freestyle Roxi sensors, Disp: 1 Each, Rfl: 0 Continuous Blood Gluc Sensor (FreeStyle Roxi 14 Day Sensor) Misc, Use to check blood sugars using the Freestyle Roxi Ripplemead. Change sensor every 14 days., Disp: 2 [...] NEEDLES 31GX5/16) 31G X 8 MM [facility] [place], Use new needle with [...] sensation is intact when tested with 5.07 [place] Nina monofilament bilaterally. Musculoskeletal: 5/5 muscle strength [...] any problems or concerns documented in this [facility]06-30-2022 History of Present illness Narrative* Abdirahman Rutherford [...] and we will continue to monitor. His LMQRHF10 activity to help predict the risk of relapse to determine when he may require additional prophylactic rituximab with his primary care physician here at [facility] managing his diabetes and other medical [...] with any additional questions documented in this encounterLima Memorial Hospital06-30-2022 Instructions* Patient Instructions* Lucy Green RN - 04/14/2022 8:20 AM EDT Please feel free to contact the triage line at [phone] with any concerns. Hematology Primary Care Team Dr. Abdirahman Ospina, Hematology Fellow FERMIN Avelar [facility] Candice Gallardo, Research Coordinator Please plan [...] applied to wood stairs to prevent sliding. Tappen a bright colored line on the edge [...] Auto 2.26 0.83 - 3.57 K/uL Abs [place] Auto 0.77 0.24 - 0.93 K/uL Abs Eos Auto 0.64 (H) 0.00 - 0.48 K/uL Abs Baso Auto 0.09 0.00 - 0.09 K/uL documented in this encounterLima Memorial Hospital06-15-2022 History of Present illness Narrative* Lonnie María Elena, UM SPECIALIST-PHARMACY MANAGER - 03/30/2022 1:20 PM EDT Chief Complaint [...] different statin. The 10-year ASCVD risk score ([place] Jr., et al., 2013) is: 16.9% [...] He has not followed up with the [facility]. The patient also reports ongoing left ankle [...] -Advised patient to follow up with the [facility] to discuss ongoing pain. 3. Insertional Achilles [...] 1 lav tubes drawn documented in this encounterLima Memorial Hospital04-26-2022 History of Present illness Narrative* Shira Cota [...] - Pain, MRI Results HPI: Jairo Adkins JrLuis Armando is a [...] daily., Disp: , Rfl: Continuous Blood Gluc Wheel Adjuster (FreeStyle Roxi 14 Day Ripplemead) Device, Use to check blood sugar using the Freestyle Roxi sensors, Disp: 1 Each, Rfl: 0 Continuous Blood Gluc Sensor (FreeStyle Roxi 14 Day Sensor) Misc, Use to check blood sugars using the Freestyle Roxi Ripplemead. Change sensor every 14 days., Disp: 2 [...] NEEDLES 31GX5/16) 31G X 8 MM [facility], Use new needle with [...] sensation is intact when tested with 5.07 [place] Nina monofilament bilaterally. Musculoskeletal: 5/5 muscle strength [...] any problems or concerns documented in this encounterLima Memorial Hospital04-18-2022 History of Present illness Narrative* Lonnie Ring APRN-PHARMACY MANAGER - 01/31/2022 3:00 PM EDT Chief Complaint Patient presents with Back Pain Pt states back pain has stayed the same since last visit. Pt states the mission assessment specialist did prescribe him a tens unit but he cannot find a place that will fill the prescription. History of Present Illness: Mr. Adkins is a 41 y.o. male with a PMH significant for TTP, T2DM, essential HTN, obesity, chronic knee pain, and DDD who presents today for evaluation of low back pain. Low back pain: The patient has been following with the [facility] for low back pain. His last appointment [...] lumbar spine. At his last visit with [facility] patient was advised to continue PT and [...] sciatica: -Patient will continue following with the [facility] and doing PT. -If pain persists [facility] will likely suggest TPI. -Advised patient to [...] all sx above. documented in this encounterOSU [facility]04-14-2022 History of Present illness Narrative* Mikie Quiñones MD - 01/27/2022 8:10 AM EDT [facility] Referred by: ANDRÉS Carrion [address] [place] [address] PCP: ANDRÉS Carrion (General) Reason for consult: [...] busPIRone 10 MG tablet, Continuous Blood Gluc Wheel Adjuster (FreeStyle Roxi 14 Day Ripplemead) Device, Continuous Blood Gluc Sensor (FreeStyle Roxi [...] 5 VIEWS Z68.41 TENS UNIT Jairo Adkins . is a 41 y.o. male with HTN, [...] documentation of this patient. Fran Gaston MD Electric Motor Fitter Anesthesiology / Pain Management [facility] documented in this encounterOSU [facility] Medical CenterDischarge summary Author Ashok Norton [facility] November 10, 2023 4:49am Note Date/Time November 10, 2023 4 :30am [facility] Medical Records Department [address] [place] [address] Emergency Department Summary 11/10/23 MR#: [id number] Acct: [id number] Name: JAIRO ADKINS . Rep #:[id number] : 1980 43 From: Ashok Norton MD [...] right hand that precedes this shoulder pain. [facility] Medical History Anxiety Bipolar disorder Depression [...] your Primary Care Provider. Call [facility] ([phone]) or report to the closest Emergency Room. Call 911 if necessary. 11/10/23 0449 <Electronically signed by Ashok Norton MD> Cosigner Signature (if applicable): CC: No Primary Care Physician ~ Signed [facility] Work Phone: Discharge summary Author Antonio Montgomery [facility] December 23, 2023 6:05am Note Date/Time December 23, 2023 5:39 am [facility] Medical Records Department [address] [place] [address] Emergency Department Summary 12/23/23 MR#: [id number] Acct: [id number] Name: JAIRO ADKINS CLAUDIA Sousa Rep #:[id number] : 1980 43 From: Antonio Montgomery MD [...] Weakness Narrative Narrative: Patient is a 33-year-old bqqlo-gyab-psnyxvsp male presents with atraumatic rightshoulder pain that [...] similar symptoms: Yes Recent Illness/Hospitalization: No PFSH [facility] Medical History Anxiety Bipolar disorder Depression Diabetes [...] your Primary Care Provider. Call [facility] ([phone]) or report to the closest Emergency Room. Call 911 if necessary. 12/23/23 0605 <Electronically signed by Antonio Montgomery MD> Cosigner Signature (if applicable): CC: No Primary Care Physician ~ Signed [facility] Work Phone: Evaluation + Plan note No data available for this section [facility] Evaluation noteNo assessment information available [facility] Work Phone: Evaluation note* Diagnosis Myalgia- [...] serious comorbidity present [facility] Diagnosis Chronic bilateral low back pain with left-sided sciatica Myalgia Mylagia and myositis, unspecified Strain of lumbar region, initial encounter Class 3 severe obesity due to excess calories with body mass index (BMI) of 40.0 to 44.9 in adult, unspecified whether serious comorbidity present [facility] encounter [facility] Diagnosis Chronic bilateral low back pain with left-sided sciatica- Primary [facility]* Diagnosis 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 Bilateral foot pain Pain in limb Postcalcaneal bursitis of right foot documented in this [facility]* Diagnosis Type 2 diabetes mellitus without complication, with long-term current use of insulin- Primary 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 Postcalcaneal bursitis of right foot documented [facility] this [facility]* Diagnosis 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 documented [facility] encounter [facility]* Diagnosis Insertional Achilles tendinopathy- Primary Retrocalcaneal exostosis Exostosis of unspecified site Postcalcaneal bursitis of right foot Bilateral foot pain Pain in limb [facility]* Diagnosis Myalgia- Primary Mylagia and myositis, unspecified Class 3 severe obesity due to excess calories with body mass index (BMI) of 40.0 to 44.9 in adult, unspecified whether serious comorbidity present Chronic bilateral low back pain without sciatica Cervicalgia Muscle spasm of back Other symptoms referable to back documented in this [facility]* Diagnosis 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 Type 2 diabetes mellitus without complication, with long-term current use of insulin Encounter for follow-up documented in this encounter [facility]* Diagnosis Insertional Achilles tendinopathy- Primary Other chronic pain Chronic heel pain, right Chronic heel pain, left documented in this encounter [facility]* Diagnosis Insertional Achilles tendinopathy- Primary Other chronic pain Chronic heel pain, right Chronic heel pain, left Encounter for diabetic foot exam Hammertoe, bilateral documented in this encounter [facility]* Diagnosis Insertional Achilles tendinopathy documented [facility]* Diagnosis 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 documented in this [facility]* Diagnosis Well adult exam- [...] vaccination Need for prophylactic vaccination with combined [id number] (DTP) vaccine documented in this encounter [facility]* Diagnosis Type 2 diabetes mellitus without complication, with long-term current use of insulin- Primary documented in this [facility]* Diagnosis Gluteal abscess- Primary Cellulitis and abscess of buttock documented in this encounter [facility] note* Diagnosis 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 documented in this encounter [facility]* Diagnosis Bilateral shoulder pain, unspecified chronicity- Primary Bilateral shoulder pain, unspecified chronicity Bilateral shoulder pain, unspecified chronicity documented in this encounter [facility]* Diagnosis Bilateral shoulder pain, unspecified chronicity documented in this encounter [facility]* Diagnosis 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 Bilateral shoulder pain, unspecified chronicity Encounter for routine dental examination documented in this encounter [facility]* Diagnosis Onset Date Resolution Status Cervical radiculopathy at C6 acute Nicotine addiction chronic TTP (thrombotic thrombocytopenic purpura) chronic Hyperosmolar hyperglycemic state (HHS) acute [facility] Work Phone: Evaluation note* Diagnosis Onset Date Resolution Status Cervical radiculopathy at C6 acute Nicotine addiction chronic TTP (thrombotic thrombocytopenic purpura) chronic Hyperosmolar hyperglycemic state (HHS) acute Morbid obesity with BMI of 40.0-44.9, adult acute Type 2 diabetes mellitus acu te Nicotine addiction chronic [facility] Work Phone: Evaluation note* Diagnosis Hyperglycemia- Primary Other abnormal glucose Hyperglycemia Other abnormal glucose body mass index of 40.0-49.9 Hyperglycemia due to diabetes mellitus Hyponatremia Hyposmolality and/or hyponatremia documented in this encounter [facility]* Diagnosis Cellulitis of buttock- Primary Cellulitis and abscess of buttock [facility]* Diagnosis Rotator cuff syndrome of right shoulder- Primary Disorders of bursae and tendons in shoulder region, unspecified documented in this encounter [facility]* Diagnosis Rotator cuff syndrome of right shoulder- Primary Disorders of bursae and tendons in shoulder region, unspecified Calcific tendinitis Calcium deposits in tendon and bursa documented in this encounter [facility]* Diagnosis 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 [facility] encounter [facility]* Diagnosis 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 [facility]* Diagnosis Cervicalgia Chronic tension-type headache, intractable Chronic tension type headache documented in this encounter [facility]* Diagnosis 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 [facility] encounter [facility]* Diagnosis 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 Rep #:[id number] : 1980 44 From: Mainor Woods DO PCP: Care Physician,No Primary Status :ADM IN Location: ICU CVICU 4-1 HPI - General General Date of Admission: 02/23/24 Date of Service: 02/23/24 Chief Complaint: Severe Hyperglycemia. HPI Narrative JAIRO ADKINS, is a 44 M with a past medical history of tobacco abuse, history of substance abuse, morbid obesity; BMI 41.3 this admission, history of TTP, bipolar disorder, migraine headaches, and diabetes mellitus type 2; uncontrolledwith hyperglycemia who presents to [facility] ER complaining of highly elevated blood glucose. Mr. Adkins reports his symptoms began approximately 2 months prior to admission after he ran out of Trulicity and was not able to obtain [...] expected to be greater than 2 midnights. [facility] Medical History Anxiety Bipolar disorder Depression Diabetes [...] % (Auto) 54.4, Lymph % (Auto) 28.9, [place] % (Auto) 9.4, Eos % (Auto) 6.3 H, Baso % (Auto) 0.7, Absolute Neuts (auto) 4.9, Absolute Lymphs (auto) 2.61, Nucleated RBC % 0 Assessment & Plan Assessment/Plan (1) Hyperosmolar hyperglycemic state (HHS): (2) Type 2 diabetes mellitus: QUALIFIERS: Diabetes mellitus complication status: without complication Diabetes mellitus detention insulin use: without detention use Qualified Code(s): E11.9 - Type 2 [...] uncontrolled with hyperglycemia [facility] precipitating #1 - Resume [...] 5. History of substance abuse - Check [place] UDS to screen for any illicit agents [...] 85 minutes. Charges/Coding Visit Charges Inpatient E&M: 66325 Init Hosp L3 02/23/24 0613 <Electronically signed by Mainor Payan DO> Cosigner Signature (if applicable): CC: Dr. Mainor Payan DO; No Primary Care Physician~ Signed [facility] Work Phone: Hospital Discharge instructions Additional [...] 1 pill 4 times a day till gone.[facility] Work Phone: Hospital Discharge instructions Additional Instructions Ice, wear the brace, and take Tylenol 1000 mg every 6 hours as needed. Follow-up with orthopedics. Use the norco for breakthrough pain.[facility] Work Phone: Hospital Discharge instructions Additional [...] 3 times a day to prevent frozen shoulder.[facility] Work Phone: Hospital Discharge instructions Additional Instructions You to follow-up with your doctor. The name of your doctor is located on your insurance card issued to you by care source.[facility] Work Phone: Hospital Discharge instructions* Attachments The following attachments cannot be sent through Care Everywhere. * [facility] AMB SMOKING CESSATION LINKS documented in this encounterOSU [facility] CenterHospital Discharge instructionsAmbulatory Orders* Endocrinology Location: None Selected [facility] Work Phone: Instructions* Attachments The following attachments cannot be sent through Care Everywhere. * Rotator Cuff Impingement or Degeneration (Austrian) documented in this encounterOSU [facility] CenterProgress note Author Karli Reyes [facility] February 23, 2024 3:53pm Note Date/Time February 23, 2024 3:53p m [facility] Medical Records Department [address] [place] [address] Progress Note - Hospitalist 02/23/241551 MR#: [id number] Acct: [id number] Name: JAIRO ADKINS Jr. Rep #:[id number] : 1980 44 From: Karli Reyes DO [...] instructed to call today but it appears hehas not yet done that. Lantus prescription for 1 month supply was sent to the local pharmacy and the patient signed AMA paperwork. 02/23/241552 <Electronically signed by Karli Reyes DO> Cosigner Signature (if applicable): CC: ~ Signed [facility] Work Phone: Reason for referral (narrative)* Consultation (Routine) - New Request Specialty Diagnoses / Procedures Referred By Camila ward Referred To Contact Multispecialty Diagnoses Insertional Achilles tendinopathy Shira Cota, BENNETT [address] [facility] [address] [place] [address] Referral ID Status Reason Start Date Expiration Date V isits Requested Visits Authorized [id number] New Request 09/16/2022 10/11/2023 1 1 * MRI/CAT Scan (Routine) - New Request Specialty Diagnoses / Procedures Referred By Contac t Referred To Contact Diagnoses Insertional Achilles tendinopathy Procedures MRI ANKLE LEFT WITHOUT CONTRAST [place] MRI LOWER EXTREM JT, W/O CONTRAST Shira Cota, BENNETT [address] [facility] [address] [place] [address] Referral ID Status Reason Start Date Expiration Date V isits Requested Visits Authorized [id number] New Request 09/16/2022 10/11/2023 1 [facility] Consultation (Routine) - New Request Specialty Diagnoses / Procedures Referred By Contac t Referred To Contact Hand Diagnoses Carpal tunnel syndrome of right wrist Lonnie Ring APRN-CNP [address] [facility] [address] [place] [address] Referral ID Status Reason Start Date Expiration Date V isits Requested Visits Authorized [id number] New Request 10/27/2022 11/21/2023 1 1 * Adjunctive Therapy (Routine) - Closed Specialty Diagnoses / Procedures Referred By Contac t Referred To Contact Social Work Diagnoses Housing instability Food insecurity Lonnie Ring APRN-CNP [address] [facility] [address] [place] [address] Referral ID Status Reason Start Date Expiration Date Visits Re quested Visits Authorized [id number] Closed 10/27/2022 11/21/2023 1 1 [facility] for referral (narrative)* Consultation (Routine) - New Request Specialty Diagnoses / Procedures Referred By Contac t Referred To Contact Orthopaedic Surgery Diagnoses TTP (thrombotic thrombocytopenic purpura) Abdirahman Rutherford MD [address] [place] [address] Referral ID Status Reason Start Date Expiration Date V isits Requested Visits Authorized [id number] New Request 01/04/2024 01/28/2025 1 1 [facility] for referral (narrative)* Unlisted Procedure Code (Routine) - New Request Specialty Diagnoses / Procedures Referred By Contac t Referred To Contact Procedures PLATELET MONITORING PER PROTOCOL Jim Key MD [address] [place] [address] Referral ID Status Reason Start Date Expiration Date V isits Requested Visits Authorized [id number] New Request 02/25/2024 03/21/2025 1 1 * Unlisted Procedure Code (Routine) - New Request Specialty Diagnoses / Procedures Referred By Contac t Referred To Contact Procedures DVT/VTE RISK ASSESSMENT Jim Key MD [address] [place] [address] Referral ID Status Reason Start Date Expiration Date V isits Requested Visits Authorized [id number] New Request 02/25/2024 03/21/2025 1 1 [facility] for referral (narrative)* Consultation (Routine) - New Request Specialty Diagnoses / Procedures Referred By Contac t Referred To Contact Sports Ortho and Primary Care Sports Diagnoses Rotator cuff syndrome of right shoulder Chencho Avendaño MD [address] [place] [address] Referral ID Status Reason Start Date Expiration Date V isits Requested Visits Authorized [id number] New Request 04/11/2024 05/06/2025 1 1 [facility]No reason for referral information availableWUniversity Hospitals [facility] Work Phone: Chief Complaint and Reason for Visit Chief [...] adult Type 2 diabetes mellitus Nicotine addiction Chief Complaint Admit Date 3 m fu February 10, 2025 2:4 2pm left shoulder pain April 07, 2025 9:24 pm Reason for Visit Admit Date Hyperglycemia due to type 2 diabetes olivier litus February 10, 2025 2:42pm TTP (thrombotic thrombocytopenic purpura ) February 10, 2025 2:42pm Screening for depression February 10 2:42pm Smokes cigarettes February 10, 2025 2:4 2pm Mixed hyperlipidemia February 10, 2025 2: 42pm Elevated liver enzymes February 10, 2025 2:42pm Suspected sleep apnea February 10, 2025 2 :42pm Essential hypertension February 10, 2025 2:42pm Chief Complaint Admit Date 3 m fu February 10, 2025 2:4 2pm left shoulder pain April 07, 2025 9:24 pm lower ext April 29, 2025 2:46 pm Chief Complaint Admit Date 3 m fu February 10, 2025 2:4 2pm left shoulder pain April 07, 2025 9:24 pm lower ext April 29, 2025 2:46 pm 4 M FU June 10, 2025 8: 27am Reason for Visit Admit Date Hyperglycemia due to type 2 diabetes olivier litus February 10, 2025 2:42pm TTP (thrombotic thrombocytopenic purpura ) February 10, 2025 2:42pm Screening for depression February 10 2:42pm Smokes cigarettes February 10, 2025 2:4 2pm Mixed hyperlipidemia February 10, 2025 2: 42pm Elevated liver enzymes February 10, 2025 2:42pm Suspected sleep apnea February 10, 2025 2 :42pm Essential hypertension February 10, 2025 2:42pm Hyperglycemia due to type 2 diabetes olivier litus June 10, 2025 8:27am TTP (thrombotic thrombocytopenic purpura ) June 10, 2025 8:27am Smokes cigarettes June 10, 2025 8: 27am Mixed hyperlipidemia June 10, 2025 8 :27am Elevated liver enzymes June 10, 2025 8:27am Suspected sleep apnea June 10, 2025 8:27am Essential hypertension June 10, 2025 8:27am Chief Complaint Admit Date left shoulder pain April 07, 2025 9:24 pm lower ext April 29, 2025 2:46 pm 4 M FU June 10, 2025 8: 27am Reason for Visit Admit Date Hyperglycemia due to type 2 diabetes olivier litus June 10, 2025 8:27am TTP (thrombotic thrombocytopenic purpura ) June 10, 2025 8:27am Smokes cigarettes June 10, 2025 8: 27am Mixed hyperlipidemia June 10, 2025 8 :27am Elevated liver enzymes June 10, 2025 8:27am Suspected sleep apnea June 10, 2025 8:27am Essential hypertension June 10, 2025 8:27am Advance Directives No Advanced Directives Records Found Advance Directive Response Recorded Date/ Time Advance Directives No January 12, 015 10:57pm Living Will No January 06, 2022 7:43pm Power of Naval Designer No January 06 7:43pm Latest Code Status [...] February 21, 2022 8: 01pm Power of Naval Designer No February 21, 2022 8:01pm Latest Code [...] October 09, 2 022 4:38am Power of Naval Designer No October 09, 2022 4:38am Advance Directive Response Recorded Date/ Time Advance Directives No January 12, 2 015 9:57pm Living Will No October 18 3 4:23am Power of Naval Designer No October 18, 2 023 4:23am Latest [...] No January 24, 2023 3:02am Power of Naval Designer No January 24 3:02am Advance Directive Response Recorded Date/ Time Advance Directives No January 12, 2 015 10:57pm Living Will No May 23, 2023 11:15am Power of Naval Designer No May 23 11:15am Advance Directive Response Recorded Date/ Time Advance Directives No January 12, 2 015 9:57pm Living Will No October 29 1:15pm Power of Naval Designer No October 29, 2023 1:15pm Advance Directive Response Recorded Date/ Time Advance Directives No January 12, 2 015 9:57pm Living Will No November 10 4:14am Power of Naval Designer No November 10, 2023 4:14am Advance Directive Response Recorded Date/ Time Advance Directives No January 12, 2 015 9:57pm Living Will No November 30, 2 024 3:38am Power of Naval Designer No November 30, 2023 3:38am Advance Directive Response Recorded Date/ Time Advance Directives No January 12, 2 015 9:57pm Living Will No December 23, 2023 5:26am Power of Naval Designer No December 22 5:26am Advance Directive Response Recorded Date/ Time Advance Directives No January 12, 2 015 10:57pm Living Will No February 22, 2024 10 :18pm Power of Naval Designer No February 22, 2024 10:18pm Advance Directive Response Recorded Date/ Time Advance Directives No January 12, 2 015 10:57pm Living Will No February 23, 2024 4 :42am Power of Naval Designer No February 23, 2024 4:42am Advance Directive Response Recorded Date/ Time Advance Directives No January 12, 2 015 10:57pm Living Will No February 23, 2024 6 :27am Power of Naval Designer No February 23, 2024 6:27am Date Activated [...] Comments 10/25/2012 8:21 PM 11/01/2012 4:24 PM Advance Directive Response Recorded Date/ Time Do you have a Healthcare Power of Naval Designer? No April 07, 2025 9:24pm Advance Directives No January 12, 015 10:57pm Advance Directive Response Recorded Date/ Time Do you have a Healthcare Power of Naval Designer? No April 29, 2025 4:56pm Do you have a Healthcare Power of Naval Designer? No April 07, 2025 9:24pm Advance Directives No January 12, 2 015 10:57pm Reason for Referral Specialty Diagnoses / Procedures Referred By Camila ward Referred To Contact Diagnoses Insertional Achilles tendinopathy Procedures XR FOOT RIGHT 3 VIEWS Serge Murdock, BENNETT [address] [place] [address] Referral ID Status Reason Start Date Expiration Date V isits Requested Visits Authorized [id number] New Request 02/08/2022 03/05/2023 1 1 Specialty Diagnoses / Procedures Referred By Camila ward Referred To Contact Diagnoses Insertional Achilles tendinopathy Procedures MRI ANKLE LEFT WITHOUT CONTRAST [place] MRI LOWER EXTREM JT, W/O CONTRAST Shira Cota, DPM [address] [place] [address] Referral ID Status Reason Start Date Expiration Date Visits Re quested Visits Authorized [id number] Closed 09/16/2022 10/11/2023 1 1 Specialty Diagnoses / Procedures Referred By Contac t Referred To Contact Physical Therapy Diagnoses Bilateral shoulder pain, unspecified chronicity Noble Licona MD [address] [place] [address] Referral ID Status Reason Start Date Expiration Date V isits Requested Visits Authorized [id number] New Request 01/12/2024 02/05/2025 1 1 Scheduling Instructions [facility] Sports Medicine [place] (Orthopedic, Sports Rehab) [address], [address], [place] [address] Outpatient Care [place] (Burn, Neurological, Orthopedic, Pelvic Health, Sports Rehab) [address] [facility], [address], [place] [address] Outpatient Care [facility] (Orthopedic Rehab) [address] [facility], [address], [place] [address] Outpatient Care [place] (Orthopedic, Pelvic Health, Sports) [address] [facility], [address], [place] [address] Outpatient Care [place] - Pelvic Health [address] [facility], [address], [place] [address] Outpatient Care [place] (Orthopedic, Pelvic Health, Sports Rehab) [address], [address], [place] [address] Outpatient Care [facility] (Aquatic, Burn, Neurological, Orthopedic, Pelvic Health Rehab) [address] [facility] [address], [place] [address] Outpatient Care [place] (Burn, Neurological, Orthopedic, Pelvic Health, Sports Rehab) [address] , [address] [address] Outpatient Rehabilitation [facility] (Burn, Neurological, Orthopedic Rehab) [address] [place] [address] [facility] (Aquatic, Burn, Neurological, Orthopedic, Pelvic Health Rehab) [address] [place] [address] Outpatient Rehabilitation [place] (Burn, Neurological, Orthopedic Rehab) [address] [place] [address] Sports Medicine [facility] (Orthopedic, Sports Rehab) [address] [facility], [address], [place] [address] Sports [facility] (Orthopedic, Sports Rehab) [address] , [place] [address] Sports Medicine Rehabilitation [facility] (Orthopedic, Sports Rehab) [address] [place] [address] Sports Medicine Rehabilitation [facility] (Aquatic, Orthopedic, Pelvic Health, Sports Rehab) [address], [place] [address] Sports Medicine Rehabilitation [facility] (Orthopedic, Sports Rehab) [address] [place] [address] Sports Medicine Rehabilitation [facility] (Orthopedic, Sports Rehab) [address] [facility] [address], [facility], [address], [place] [address] Specialty Diagnoses / Procedures Referred By Contac t Referred To Contact Physical Therapy Diagnoses Bilateral shoulder pain, unspecified chronicity Edilia Robles, UM SPECIALIST-PHARMACY MANAGER [address] [address] Referral ID Status Reason Start Date Expiration Date V isits Requested Visits Authorized [id number] New Request 02/15/2024 03/11/2025 1 1 Specialty Diagnoses / Procedures Referred By Contac t Referred To Contact Dentistry Diagnoses Encounter for routine dental examination Edilia Robles, UM SPECIALIST-PHARMACY MANAGER [address] [place] [address] Referral ID Status Reason Start Date Expiration Date V isits Requested Visits Authorized [id number] New Request 02/15/2024 03/11/2025 1 1 Scheduling Instructions [facility] Locations: [facility] [place] [address] [facility] Faculty Clin[facility] [place] [address] [place] [address], Fourth [place] [address] [facility] [address], [address] [place] [address] Specialty Diagnoses / Procedures Referred By Contac t Referred To Contact Diagnoses Rotator cuff syndrome of right shoulder Procedures [facility] Monique Tanner MD [address] [place] [address] Referral ID Status Reason Start Date Expiration Date V isits Requested Visits Authorized [id number] New Request 05/13/2024 06/07/2025 1 1 Summary Purpose Family History Relationship Condition Age at Onset Recorded Date/T kaylie mother Diabetes mellitus Unknown Cardiac disease Unknown Malignant neoplasm Unknown Asthma Unknown Anxiety Unknown Arthritis Unknown No Family History Records Found Additional Source [...] back pain with left-sided sciatica Lonnie Ring APRN-PHARMACY MANAGER [address] [place] [id number] Referral ID Status Reason Start Date Expiration Date V isits Requested Visits Authorized [id number] New Request 01/06/2022 01/31/2023 1 1 Reason Comments Back Pain Pt states back pain has stayed the same since last visit. Pt states the mission assessment specialist did prescribe him a tens unit [...] Podiatry Diagnoses Left Achilles tendinitis Lonnie Ring APRN-PHARMACY MANAGER [address] [id number] Referral ID Status Reason Start Date Expiration Date V isits Requested Visits Authorized [id number] New Request 12/08/2021 01/02/2023 1 1 Specialty Diagnoses / Procedures Referred By Camila ward Referred To Contact Diagnoses Insertional Achilles tendinopathy Procedures XR FOOT RIGHT 3 VIEWS Serge Murdock L, DPM [address] [place] [address] Referral ID Status Reason Start Date Expiration Date V isits Requested Visits Authorized [id number] New Request 02/08/2022 03/05/2023 1 1 Reason [...] tendinopathy Procedures MRI ANKLE LEFT WITHOUT CONTRAST [place] MRI LOWER EXTREM JT, W/O CONTRAST Shira Cota, DPM [address] [place] [address] Referral ID Status Reason Start Date Expiration Date Visits Re quested Visits Authorized [id number] Closed 09/16/2022 10/11/2023 1 1 Reason Comments Physical Specialty Diagnoses / Procedures Referred By Camila ward Referred To Contact Diagnoses Research exam Procedures MRI CARDIAC STRESS WITH CONTRAST [place] CARDIAC MRI W/W/O CONTRAST W STRESS Memo Saab MD [address] [place] [address] Referral ID Status Reason Start Date Expiration Date V isits Requested Visits Authorized [id number] Auth Not Needed 01/18/2023 02/12/2024 1 1 Reason Comments Diabetes Reason Comments Abscess Left butt cheek boil that started on Monday, and has gotten progressively worse per patient; he attempted to sarmad it himself on Monday and used warm compresses on Monday as well; denies fevers or chills Reason Comments Follow-up Reason Comments Pain Specialty Diagnoses / Procedures Referred By Camila ward Referred To Contact Orthopaedic Surgery Diagnoses TTP (thrombotic thrombocytopenic purpura) Abdirahman Rutherford MD [address] [place] [address] Referral ID Status Reason Start Date Expiration Date V isits Requested Visits Authorized [id number] New Request 01/04/2024 01/28/2025 1 1 Reason [...] injection Specialty Diagnoses / Procedures Referred By Camila t Referred To Contact Sports Ortho and Primary Care Sports Diagnoses Rotator cuff syndrome of right shoulder Chencho Avendaño MD [address]nd [place] [address] Referral ID Status Reason Start Date Expiration Date V isits Requested Visits Authorized [id number] New Request 04/11/2024 05/06/2025 1 1 Reason Comments Follow-up Research Endopat Care Teams (unrecognized sec tion and content) Sorority Supervisor Relationship Specialty Start Date End Date Lonnie Ring APRN-PHARMACY MANAGER [address] [place] [address] PCP - General Certified Nurse Practitioner 09/22/21 Sorority Supervisor Relationship Specialty Start Date End Date Lonnie Ring APRN-PHARMACY MANAGER [address] [place] [address] PCP - General Certified Nurse Practitioner 09/22/21 Sorority Supervisor Relationship Specialty Start Date End Date Lonnie Ring APRN-PHARMACY MANAGER [address] [place] [address] PCP - General Certified Nurse Practitioner 09/22/21 Sorority Supervisor Relationship Specialty Start Date End Date Lonnie Ring, UM SPECIALIST-PHARMACY MANAGER [address] [place] [address] PCP - General Certified Nurse Practitioner 09/22/21 Sorority Supervisor Relationship Specialty Start Date End Date GiovannyLonnie cody APRNPHARMACY MANAGER [address] [place] [address] PCP - General Certified Nurse Practitioner 09/22/21 Sorority Supervisor Relationship Specialty Start Date End Date María Elena Lonnie, UM SPECIALISTPHARMACY MANAGER [address] [place] [address] PCP - General Certified Nurse Practitioner 09/22/21 Sorority Supervisor Relationship Specialty Start Date End Date GiovannyLonnie cody APRNPHARMACY MANAGER [address] [place] [address] PCP - General Certified Nurse Practitioner 09/22/21 Sorority Supervisor Relationship Specialty Start Date End Date María ElenaLonnie APRNPHARMACY MANAGER [address] [place] [address] PCP - General Certified Nurse Practitioner 09/22/21 Sorority Supervisor Relationship Specialty Start Date End Date LindaLonnie burroughs UM SPECIALISTPHARMACY MANAGER [address] [place] [address] PCP - General Certified Nurse Practitioner 09/22/21 Sorority Supervisor Relationship Specialty Start Date End Date LindaLonnie burroughs APRNPHARMACY MANAGER [address] [place] [address] PCP - General Certified Nurse Practitioner 09/22/21 Sorority Supervisor Relationship Specialty Start Date End Date Giovannyescobar LonnieANA LUISA joseNPHARMACY MANAGER [address] [place] [address] PCP - General Certified Nurse Practitioner 09/22/21 Sorority Supervisor Relationship Specialty Start Date End Date Lonnie Ring [facility]A.[facility] [address] [place] [address] PCP - General Certified Nurse Practitioner 09/22/21 Sorority Supervisor Relationship Specialty Start Date End Date Lonnie Ring [facility] [address] [place] [address] PCP - General Certified Nurse Practitioner 09/22/21 Team Status: Active Member Role Status Dates No Primary Care Physician Family Provider Active LONNIE RING Primary Care Provider Active Team Status: Inactive [...] Dr. Bharti Dick MD Emergency Provider Active Sorority Supervisor Relationship Specialty Start Date End Date Lonnie Ring APR[facility] [address] [place] [address] PCP - General Certified Nurse Practitioner 09/22/21 Sorority Supervisor Relationship Specialty Start Date End Date Lon[facility] [address] [place] [address] PCP - General Certified Nurse Practitioner 09/22/21 Team Status: Active Member Role Status Dates No Primary Care Physician Family Provider Active No Primary Care Physician Primary Care Provider Active Team Status: Inactive Member Role Status Dates LONNIEMARÍA ELENA Primary Care Provider Active Dr. Bharti Dick MD Attending Provider, Emergency Provider Active Team Status: Inactive Member Role Status Dates Dr. Jo Dumont DO Emergency Provider Active No Primary Care Physician Primary Care Provider Active Sorority Supervisor Relationship Specialty Start Date End Date Izabela Turner [address] [place] [id number] PCP - General 09/16/23 Team Status: Inactive [...] Ivon Garcia DO Attending Provider, Emergency P rovider Active Sorority Supervisor Relationship Specialty Start Date End Date Polo Meredith, UM SPECIALIST-PHARMACY MANAGER [address] [facility] [address] [place] [id number] PCP - Family Medicine Certified Nurse Practitioner 08/04/23 Polo Meredith, UM SPECIALIST-PHARMACY MANAGER [address] [facility] [address] [place] [id number] PCP - General Certified Nurse Practitioner 08/04/23 Team Status: Inactive Member Role Status Dates No Primary Care Physician Primary Care Provider Active Dr. Ashok Norton MD Attending Provider, Emergency Provider Active Team Status: Inactive Member Role Status Dates Dr. Desmond Mendoza DO Emergency Provider Active No Primary Care [...] Member Role Status Dates Dr. Desmond Mendoza DO Attending Provider, Emergency Pr ovider Active No Primary Care Physician Primary Care Provider Active Team Status: Inactive Member Role Status Dates No Primary Care Physician Primary Care Provider Active Dr. Antonio Montgomery MD Emergency Provider Active Sorority Supervisor Relationship Specialty Start Date End Date Polo Meredith, UM SPECIALIST-PHARMACY MANAGER [address] [place] [address] PCP - Family Medicine Certified Nurse Practitioner 08/04/23 Polo Meredith APRN-PHARMACY MANAGER [address] [place] [address] PCP - General Certified Nurse Practitioner 08/04/23 Sorority Supervisor Relationship Specialty Start Date End Date Polo Meredith UM SPECIALIST-PHARMACY MANAGER [address] [facility] [address] [place] [address] PCP - Family Medicine Certified Nurse Practitioner 08/04/23 Polo Meredith UM SPECIALIST-PHARMACY MANAGER [address] [facility] [address] [place] [address] PCP - General Certified Nurse Practitioner 08/04/23 Sorority Supervisor Relationship Specialty Start Date End Date Polo Meredith APRN-PHARMACY MANAGER [address] [facility] [address] [place] [address] PCP - Family Medicine Certified Nurse Practitioner 08/04/23 Polo Meredith APRN-PHARMACY MANAGER [address] [facility] [address] [place] [address] PCP - General Certified Nurse Practitioner 08/04/23 Sorority Supervisor Relationship Specialty Start Date End Date Polo Meredith APRN-PHARMACY MANAGER [address] [facility] [address] [place] [address] PCP - Family Medicine Certified Nurse Practitioner 08/04/23 Polo Meredith UM SPECIALIST-PHARMACY MANAGER [address] [facility] [address] [place] [address] PCP - General Certified Nurse Practitioner 08/04/23 Team Status: Active Member Role Status Dates No Primary Care Physician Primary Care Provider Active Dr. Desmond Mendoza , DO Emergency Provider Active Dr. Mainor Payan , DO Admit Provider, Attending Pr ovider Active Team Status: Inactive Member Role Status Dates No Primary Care Physician Primary Care Provider Active Dr. Antonio Montgomery MD Attending Provider, Emergency Provi alannah Active Team Status: Inactive Member Role Status Dates No Primary Care Physician Primary Care Provider Active Dr. Desmond Mendoza , DO Emergency Provider Active Team Status: Inactive Member Role Status Dates No Primary Care Physician Primary Care Provider Active Dr. Desmond Mendoza , DO Emergency Provider Active Dr. Mainor Payan , DO Admit Provider, Other Provid er Active Dr. Karli Reyes , DO Attending Provider Active Sorority Supervisor Relationship Specialty Start Date End Date Polo Meredith, UM SPECIALIST-PHARMACY MANAGER [address] [facility] [address] [place] [address] PCP - Family Medicine Certified Nurse Practitioner 08/04/23 Polo Meredith, UM SPECIALIST-PHARMACY MANAGER [address] [facility] [address] [place] [address] PCP - General Certified Nurse Practitioner 08/04/23 Sorority Supervisor Relationship Specialty Start Date End Date Polo Meredith, UM SPECIALIST-PHARMACY MANAGER [address] [facility] [address] [place] [address] PCP - Family Medicine Certified Nurse Practitioner 08/04/23 Polo Meredith, UM SPECIALIST-PHARMACY MANAGER [address] [facility] [address] [place] [address] PCP - General Certified Nurse Practitioner 08/04/23 Sorority Supervisor Relationship Specialty Start Date End Date Polo Meredith APRN-PHARMACY MANAGER [address] [place] [address] PCP - Family Medicine Certified Nurse Practitioner 08/04/23 Polo Meredith UM SPECIALIST-PHARMACY MANAGER [address] [place] [address] PCP - General Certified Nurse Practitioner 08/04/23 Sorority Supervisor Relationship Specialty Start Date End Date Polo Meredith APRN-PHARMACY MANAGER [address] [place] [address] PCP - Family Medicine Certified Nurse Practitioner 08/04/23 Polo Meredith UM SPECIALIST-PHARMACY MANAGER [address] [place] [address] PCP - General Certified Nurse Practitioner 08/04/23 Sorority Supervisor Relationship Specialty Start Date End Date Polo Meredith APRN-PHARMACY MANAGER [address] [place] [address] PCP - Family Medicine Certified Nurse Practitioner 08/04/23 Polo Meredith, UM SPECIALIST-PHARMACY MANAGER [address] [place] [address] PCP - General Certified Nurse Practitioner 08/04/23 Sorority Supervisor Relationship Specialty Start Date End Date Polo Meredith UM SPECIALIST-PHARMACY MANAGER [address] [place] [address] PCP - Family Medicine Certified Nurse Practitioner 08/04/23 Polo Meredith APRN-PHARMACY MANAGER [address] [facility] [address] [place] [address] PCP - General Certified Nurse Practitioner 08/04/23 Team Status: Active Member Role Status Dates Dr. Katia Belle MD Primary Care Provider Active Team Status: Inactive Member Role Status Dates Dr. Katia Belle MD Primary Care Provider Active Start: February 10, 2025 End: February 10, 2025 Dr. Katia Belle MD Attending Provider Active Start: February 10, 2025 End: February 10, 2025 Dr. Katia Belle MD Referring Provider Active Start: February 10, 2025 End: February 10, 2025 Team Status: Inactive Member Role Status Dates Dr. Katia Belle MD Primary Care Provider Active Start: April 07, 2025 End: April 07, 2025 Dr. Eliecer Cortez , Referring Provider Active Start: April 07, 2025 End: April 07, 2025 Dr. Eliecer Cortez , Emergency Provider Active Start: April 07, 2025 End: April 07, 2025 Sorority Supervisor Relationship Specialty Start Date End Date Polo Meredith APRN-PHARMACY MANAGER [address] [facility] [address] [place] [address] PCP - Family Medicine Certified Nurse Practitioner 08/04/23 Polo Meredith, UM SPECIALIST-PHARMACY MANAGER [address] [facility] [address] [place] [address] PCP - General Certified Nurse Practitioner 08/04/23 Team Status: Active Member Role/Relationship Status Dates Dr. Katia Belle MD Primary Care Provider Active Team Status: Inactive Member Role/Relationship Status Dates Dr. Katia Belle MD Primary Care Provider Active Start: February 10, 2025 End: February 10, 2025 Dr. Katia Belle MD Attending Provider Active Start: February 10, 2025 End: February 10, 2025 Dr. Katia Belle MD Referring Provider Active Start: February 10, 2025 End: February 10, 2025 Team Status: Inactive Member Role/Relationship Status Dates Dr. Katia Belle MD Primary Care Provider Active Start: April 07, 2025 End: April 07, 2025 Dr. Eliecer Cortez DO Attending Provider Active Start: April 07, 2025 End: April 07, 2025 Dr. Eliecer Cortez DO Referring Provider Active Start: April 07, 2025 End: April 07, 2025 Dr. Eliecer Cortez DO Emergency Provider Active Start: April 07, 2025 End: April 07, 2025 Team Status: Inactive Member Role/Relationship Status Dates Dr. Katia Belle MD Primary Care Provider Active Start: April 29, 2025 End: April 29, 2025 Dr. Eliecer Cortez DO Emergency Provider Active Start: April 29, 2025 End: April 29, 2025 Team Status: Inactive Member Role/Relationship Status Dates Dr. Katia Belle MD Primary Care Provider Active Start: April 29, 2025 End: April 29, 2025 Dr. Eliecer Cortez DO Attending Provider Active Start: April 29, 2025 End: April 29, 2025 Dr. Eliecer Cortez DO Emergency Provider Active Start: April 29, 2025 End: April 29, 2025 Team Status: Inactive Member Role/Relationship Status Dates Dr. Katia Belle MD Primary Care Provider Active Start: June 10, 2025 End: June 10, 2025 Dr. Katia Belle MD Attending Provider Active Start: June 10, 2025 End: June 10, 2025 Dr. Katia Belle MD Referring Provider Active Start: June 10, 2025 End: June 10, 2025 Team Status: Inactive Member Role/Relationship Status Dates Dr. Katia Belle MD Primary Care Provider Active Start: April 07, 2025 End: April 07, 2025 Dr. Eliecer Cortez DO Attending Provider Active Start: April 07, 2025 End: April 07, 2025 Dr. Eliecer Cortez DO Referring Provider Active Start: April 07, 2025 End: April 07, 2025 Dr. Eliecer Cortez DO Emergency Provider Active Start: April 07, 2025 End: April 07, 2025 Team Status: Inactive Member Role/Relationship Status Dates Dr. Katia Belle MD Primary Care Provider Active Start: April 29, 2025 End: April 29, 2025 Dr. Eliecer Cortez DO Attending Provider Active Start: April 29, 2025 End: April 29, 2025 Dr. Eliecer Cortez DO Emergency Provider Active Start: April 29, 2025 End: April 29, 2025 Team Status: Inactive Member Role/Relationship Status Dates Dr. Katia Belle MD Primary Care Provider Active Start: June 10, 2025 End: June 10, 2025 Dr. Katia Belle MD Attending Provider Active Start: June 10, 2025 End: June 10, 2025 Dr. Katia Belle MD Referring Provider Active Start: June 10, 2025 End: June 10, 2025 Team Status: Inactive Member Role/Relationship Status Dates Dr. Katia Belle MD Primary Care Provider Active Start: June 10, 2025 End: June 10, 2025 Dr. Katia Belle MD Attending Provider Active Start: June 10, 2025 End: June 10, 2025 Sorority Supervisor Relationship Specialty Start Date End Date Polo Meredith APRN-CNP PCP - Family Medicine Certified Nurse Practitioner 08/04/23 Polo Meredith APRN-CNP PCP - General Certified Nurse Practitioner 08/04/23 Scheduled Active and Recently Administ ered Medications (unrecognized section and content) Medication Order 09/14/2023 09/15/2023 09/16/2023 lidocaine-EPINEPHrine (Xylocaine W/EPI) 1 %-1:[id number] injection 10 mL 10 mL, Infiltration, Once, [...] DIRECTED, Starting on 02/25/24 at 0839, Until Sun 5 at 1543, Blood glucose <80 mg/dL, For [...] pharmacy or obtain from crash [facility] ++ glucose (GLUTOSE) 40 % oral gel 1-2 Tube(Linked Group 1) 1-2 Tube, Oral, ADMINISTER DIRECTED, Starting on 02/25/24 at 0839, Until Sun 5 at 1543, Blood glucose <80 mg/dL, For [...] NEEDED, Starting on 02/25/24 at 1003, Until Sun 524 at 1543, [...] Oral, DAILY AT BEDTIME NEEDED, Starting on 02/25/24 at 1003, Until 02/25/24 at 1543, Insomnia Ondansetron (ZOFRAN) tablet 4 [...] glucose is greater than 200md/dl, then notify Network Relations Consultant. And BLOOD GLUCOSE (POC DEVICE) (CANCELED) Routine, [...] 50% needed, contact pharmacy or obtain from [facility] cart ++ And glucose (GLUTOSE) 40 % oral gel 1-2 TubeJump to med 1-2 Tube, Oral, ADMINISTER DIRECTED, Starting on [...] at 0840, Until Specified, Who to Notify: Network Relations Consultant, For all Blood Glucose LESS THAN 80 mg/dl, notify Network Relations Consultant after treatment per Hypoglycemia in Non- Adults [...] 02/25/24, For 12 hours, Who to Notify: Network Relations Consultant, For all Blood Glucose LESS THAN 80 mg/dl, notify Network Relations Consultant after treatment per Hypoglycemia in Non- Adults [...] section and content) DATE CREATED AUTHOR 12/13/2023 [facility] DATE CREATED AUTHOR AUTHOR'S ORGANIZ ATION 12/25/2023 [facility] DATE CREATED AUTHOR AUTHOR'S ORGANIZ ATION 12/31/2023 [facility] DATE CREATED AUTHOR AUTHOR'S ORGANIZ ATION 01/25/2024 [facility] DATE CREATED AUTHOR AUTHOR'S ORGANIZ ATION 01/31/2024 [facility] DATE CREATED AUTHOR AUTHOR'S ORGANIZ ATION 03/17/2024 [facility] DATE CREATED AUTHOR AUTHOR'S ORGANIZ ATION 06/20/2025 [facility] DATE CREATED AUTHOR AUTHOR'S ORGANIZ ATION 08/08/2025 [facility] FOR RECORDS PERTAINING TO PATIENTS WHO ARE [...] BE BASED ON THE PRIMARY CLINICAL RECORDS. [employer] [facility]. provides no warranty or guarantee of the accuracy or completeness of information in this document.
[2025-10-09] MEDS: 0.9% Normal Saline (500mL Bag) 500 ML 999 ML IV (22:54)
[2025-10-09] MEDS: 0.9% Normal Saline (1000mL) 1,000 ML 1000 ML IV (22:54)
[2025-10-09 22:58] VITALS: BP 133/83; PULSE 91; RESP 16; O2SAT 95
[2025-10-09 22:58] LABS: SITE Not entered; VBG BASE EXCESS -1 mmol/L (-1.0-3.5); VBG PO2 57 mmHg (25-40); VBG SO2 91 % (50-70); VBG TCO2 24 mmol/L (23-33)
[2025-10-09 23:00] LABS: Hematocrit 50.2 % (40-54); Hemoglobin 17.3 g/dL (13.0-16.5); Immature Granulocytes Count 0.060 X10^3/uL (0.0-0.0); Mean Corp Hgb Conc 34.5 g/dL (32-36); Mean Corpuscular Volume 88.1 fL (80-94); Mean Platelet Vol. 10.9 fl (6.2-12.0); NRBC Flagged by Analyzer 0 % (0-5); Platelet Count 274 K/mm3 (150-450); RBC Distribution Width CV 13.0 % (11.6-14.6); RBC Distribution Width SD 41.5 fl (35.1-43.9); Red Blood Count 5.70 M/mm3 (4.6-6.2); White Blood Count 12.7 K/mm3 (4.4-11.0)
[2025-10-09 23:04] LABS: Mucous, Urine 0 SEEN /hpf (<or=2+); Red Blood Cells-Urine 0 SEEN /hpf (0-5); Squamous Epithelial Cells - UA 0 SEEN /hpf (0-5)
--- NOTE | 2025-10-09 23:08 | EDS_ITS ---
HPI History of Present Illness Chief Complaint: Hyperglycemia Narrative Narrative: Patient was seen and examined after presenting to ED for hyperglycemia states that has been less controlled recently just because of the cuts that have occurred to his Medicaid states that he does have one of the arm sensors reports that his friend has been up in the 300s to almost 400s states that he has had to ration his insulin. [facility] Medical History Vision problems History of ulcer disease Hearing problem History of blood transfusion Back problem Acute arthritis Seasonal allergies Substance abuse Anxiety Depression Smoker Migraines Diabetes TTP (thrombotic thrombocytopenic purpura) Home Medications ?Medication ?Instructions ?Recorded ?Last Taken ?Type flash glucose scanning reader #1 ea 02/28/24 Unknown R x (FreeStyle Roxi 2 [place]) flash glucose sensor (FreeStyle #3 ea 07/30/24 Unknown Rx Roxi 2 Sensor kit) blood-glucose,clam shucker,cont #1 ea 09/11/24 Unknown Rx (FreeStyle Roxi 3 [place]) blood pressure monitor #1 ea 10/29/24 Unknown Rx insulin glargine 100 unit/mL (3 35 unit (0.35 mL) subc ut BID #76 mL 02/10/25 Unknown Rx mL) subcutaneous pen (Lantus Solostar U-100 Insulin) insulin lispro 100 unit/mL 22 unit (0.22 mL) subcut TI D #60 mL 07/17/25 Unknown Rx subcutaneous pen pen needle, diabetic 31 gauge x #100 ea 07/28/25 Unkno wn Rx 5/16 (Pen Needle) dulaglutide 4.5 mg/0.5 mL 4.5 mg (0.5 mL) subcut QWEEK #2 mL 08/11/25 Unknown Rx subcutaneous pen injector blood-glucose sensor (FreeStyle #1 KIT 09/08/25 Unknow n Rx Roxi 3 Sensor device) Allergy/AdvReac Type Severity Reaction Status Date / Time adhesive Allergy Rash Verified 10/09/25 22:03 dicyclomine HCl (From Bentyl) Allergy Hives Verified 10/09/25 22:03 fentanyl Allergy Hives Verified 10/09/25 22:03 Latex, Natural Rubber Allergy Rash Verified 10/09/25 22:03 methadone Allergy Other Verified 10/09/25 22:03 prednisone Allergy Rash Verified 10/09/25 22:03 tramadol HCl (From Ultram) Allergy Hives Verified 10/09/25 22:03 aspirin AdvReac Other Verified 10/09/25 22:03 ketorolac tromethamine (From AdvReac Upset Verified 10/09/25 22:03 Toradol) Stomach Family History Mother Diabetes Heart disease Cancer unknown Asthma Anxiety Arthritis Surgical History H/O eye surgery Social History household members: significant other, children and other details: eagle housing: house current occupational status: unemployed Smoking Status: Current every day smoker tobacco type: cigarettes Tobacco: How many years used: 30 Electronic Cigarette Use: not used quit status: not considering quitting alcohol intake: never substance use type: former substance user and marijuana what type of physical activity do you participate in: walking seatbelt use: always do you feel safe at home: Yes ROS ROS ED ROS Narrative Pertinent Positives: Polyuria polydipsia hyperglycemia rationing insulin Pertinent Negatives: Fevers chills chest pain pressure shortness of breath vomiting diarrhea The remainder of review of systems negative unless otherwise stated in the HPI above. Systems reviewed including constitutional, psychiatric, cardiovascular, respiratory, integument, HENT, gastrointestinal. EXAM Physical Exam Narrative Exam Narrative: Patient is afebrile hemodynamically stable does not appear toxic or in distress he is normocephalic and atraumatic. Normal heart and lung sounds abdomen is soft nontender nondistended he has intact and equal MSPs in his extremities his skin is warm and well-perfused. Normal range of motion of the head and neck Const Vital Signs: 10/09/25 22:00 10/09/25 22:09 10/09/25 22:15 Temperature 97.6 F L Temperature Source Temporal Pulse Rate 97 96 Respiratory Rate 18 18 Respiratory Effort Normal Non-Labored Respiratory Pattern Normal Blood Pressure 136/88 H Blood Pressure Mean 104 Pulse Ox 97 95 Oxygen Delivery Method Room Air Room Air 10/09/25 22:58 10/10/25 00:00 10/10/25 01:11 Temperature 98.2 F Temperature Source Pulse Rate 91 81 90 Respiratory Rate 16 18 21 H Respiratory Effort Respiratory Pattern Blood Pressure 133/83 H 144/93 H 134/87 H Blood Pressure Mean 99 110 102 Pulse Ox 95 97 94 Oxygen Delivery Method Room Air Room Air MDM MDM MDM Narrative Medical decision making narrative: Nursing notes, triage notes, available previous documentation, and vital signs were reviewed. Any discrepancies noted were addressed. Differential Diagnoses: Hyperglycemia lower suspicion for DKA seems like his suboptimal control of his diabetes is now secondary to cuts that are occurring to people's health care Interventions: Insulin Fluids Given: 1500 cc normal saline Labs Reviewed: Venous blood gas with a pH of 7.46 pCO2 is 32 bicarb of 23. Slight leukocytosis at 12.7 hemoglobin is 17.3 platelets of 274. Slight hyponatremia but secondary to the patient's hyperglycemia no elevated anion gap glucose was 663 slightly elevated trans transaminases AST was 87 with an ALT of 151 beta-hydroxybutyrate is undetectable urine is unremarkable Previous Documentation Reviewed: None available or applicable at this time. ED Course: Patient presenting with hyperglycemia less controlled with his diabetes because he has had to ration his insulin I have low suspicion that he is actually in DKA however we will get some labs and evaluate make sure he does not have a high anion gap metabolic acidosis we will provide him with fluids given his polyuria and polydipsia and treat accordingly. 0113: Reevaluation glucose is now down to 449 patient is downtrending return precautions follow-up recommendations provided patient is stable for discharge home This note was made utilizing voice recognition software. All attempts were made to correct spelling or other errors prior to note completion. However, due to the fast-paced nature of emergency medicine, some errors may still be present. Lab Data Labs: Laboratory Results - last 24 hr 10/09/25 10/09/25 10/09/25 22:08 22:10 22:55 WBC 12.7 H RBC 5.70 Hgb 17.3 H Hct 50.2 MCV 88.1 MCH 30.4 MCHC 34.5 RDW Std Deviation 41.5 RDW Coeff of Serafin 13.0 Plt Count 274 MPV 10.9 Immature Gran % (Auto) 0.500 Neut % (Auto) 58.9 Lymph % (Auto) 28.8 [place] % (Auto) 5.9 Eos % (Auto) 5.2 H Baso % (Auto) 0.7 Absolute Neuts (auto) 7.5 Absolute Lymphs (auto) 3.65 Nucleated RBC % 0 Sodium 130 L Potassium 4.3 Chloride 92 L Carbon Dioxide 23.8 Anion Gap 15 BUN 20 H Creatinine 0.98 Estim Creat Clear Calc 126.88 Est GFR (MDRD) Non-Af 97 BUN/Creatinine Ratio 20.8 H Glucose 663 H* Calcium 9.6 Total Bilirubin 0.38 AST 87 H ALT 151 H Alkaline Phosphatase 180 H Total Protein 7.8 Albumin 4.3 Globulin 3.6 Albumin/Globulin Ratio 1.2 b-Hydroxybutyric mmol/L 0.0 Urine Color Yellow Urine Clarity Clear Urine pH 6.5 Ur Specific [place] 1.010 Urine Protein Negative Urine Glucose (UA) 1000 H Urine Ketones Negative Urine Occult Blood Negative Urine Nitrite Negative Urine Bilirubin Negative Urine Urobilinogen Normal Ur Leukocyte Esterase Negative Urine RBC 0 SEEN Urine WBC 0 SEEN Ur Squamous Epith Cells 0 SEEN Urine Bacteria 0 SEEN Urine Mucus 0 SEEN POC Glucose > 500 H* 10/10/25 01:08 WBC RBC Hgb Hct MCV MCH MCHC RDW Std Deviation RDW Coeff of Serafin Plt Count MPV Immature Gran % (Auto) Neut % (Auto) Lymph % (Auto) [place] % (Auto) Eos % (Auto) Baso % (Auto) Absolute Neuts (auto) Absolute Lymphs (auto) Nucleated RBC % Sodium Potassium Chloride Carbon Dioxide Anion Gap BUN Creatinine Estim Creat Clear Calc Est GFR (MDRD) Non-Af BUN/Creatinine Ratio Glucose Calcium Total Bilirubin AST ALT Alkaline Phosphatase Total Protein Albumin Globulin Albumin/Globulin Ratio b-Hydroxybutyric mmol/L Urine Color Urine Clarity Urine pH Ur Specific [place] Urine Protein Urine Glucose (UA) Urine Ketones Urine Occult Blood Urine Nitrite Urine Bilirubin Urine Urobilinogen Ur Leukocyte Esterase Urine RBC Urine WBC Ur Squamous Epith Cells Urine Bacteria Urine Mucus POC Glucose 449 H ABG Data ABG results: ABG 10/09/25 22:54 Specimen Type ROBERTA Sample Site Not entered VBG pH 7.46 H VBG pO2 57 H VBG HCO3 23 VBG Total CO2 24 VBG O2 Sat (Calc) 91 H VBG Base Excess -1 POC Mix VBG pCO2 Pt Tmp 32.1 L O2 Delivery Device Room Air Discharge Plan Triage Chief Complaint: Hyperglycemia ED Provider: Nurys Lawrence Dx/Rx/DC Orders Clinical Impression: Hyperglycemia, Polyuria, Polydipsia Instructions: ED Diabetic Hyperglycemia Prescriptions: No Action (DME) FreeStyle Roxi 2 [place] Misc See Rx Instructions .Route Qty: 1 0RF Rx Instructions: As directed (DME) FreeStyle Roxi 2 Sensor Kit See Rx Instructions .Route Qty: 3 2RF Rx Instructions: As directed (DME) blood pressure monitor Kit See Rx Instructions .Route Qty: 1 0RF Rx Instructions: As directed insulin glargine [Lantus Solostar U-100 Insulin] 100 unit/mL (3 mL) insulin pen 35 unit subcut BID Qty: 76 0RF (DME) FreeStyle Roxi 3 [place] Misc See Rx Instructions .Route Qty: 1 0RF Rx Instructions: As directed insulin lispro 100 unit/mL insulin pen 22 unit subcut TID Qty: 60 0RF Rx Instructions: Take 22 units with each meal If sugars are between 150-199: take an extra 2 units If between 200-249: take an extra 4 units If between 250-299: take an extra 6 units If between 300-349: take an extra 8 units If between 350-399: take an extra 10 units If over 400: take 10 units and call PCP (DME) pen needle, diabetic [Pen Needle] 31 gauge x 5/16 needle See Rx Instructions .Route Qty: 100 3RF Rx Instructions: As directed five times daily; DMII (E11.9) dulaglutide 4.5 mg/0.5 mL pen injector 4.5 mg subcut QWEEK Qty: 2 1RF (DME) FreeStyle Roxi 3 Sensor Device See Rx Instructions .ROUTE .COMPLEX Qty: 1 5RF Dose Instruction: CHANGE SENSOR EVERY 14 DAYS DIRECTED Rx Instructions: CHANGE SENSOR EVERY 14 DAYS DIRECTED Primary Care Provider: Katia Belle Referrals: Katia Belle MD [Primary Care Provider, Internal Medicine] Activity Restrictions/Additional Instructions: You need to follow-up with your doctor please return if you are getting worse try not to ration your insulin I know this is difficult given the changes with your healthcare Print Language: Persian Disposition Disposition: Home, Self Care
[2025-10-09 23:23] LABS: Glucose, Dipstick 1000 mg/dl (Normal); Ketone-Dipstick Negative (Negative); Leukocyte Esterase-Dipstick Negative /ul (Negative); Nitrite-Dipstick Negative (Negative); Occult Blood-Urine Negative /ul (Negative); Protein-Dipstick Negative (Negative); Specific Gravity, Urine 1.010 (1.002-1.030); Urine Bilirubin Dipstick Negative (Negative)
[2025-10-09 23:23] LABS: BETA-HYDROXYBUTYRATE 0.0 mmol/L (0.0-0.3)
[2025-10-09 23:25] LABS: AST(SGOT) 87 U/L (<=37); Alanine Aminotransfer ALT/SGPT 151 U/L (<=46); Albumin, Serum 4.3 g/dL (3.5-5.0); Alkaline Phosphatase 180 U/L (40-129); Anion Gap 15 (7-18); BUN 20 mg/dL (4-19); BUN/Creat Ratio 20.8 RATIO (10-20); Calcium,Total 9.6 mg/dL (7.6-11.0); Carbon Dioxide 23.8 mmol/L (20.0-29.0); Chloride 92 mmol/L (96-106); Estimated Creatinine Clearance 126.88 ml/min (50-250); Globulin 3.6 g/dL (2.2-4.2); Glucose 663 mg/dL (70-99); Potassium 4.3 mmol/L (3.5-5.1)
[2025-10-09 23:30] LABS: Color, Urine Yellow (Yellow)
[2025-10-09] MEDS: Insulin Lispro 10 UNIT in Syringe 0 ML 6 UNIT IV (23:57)
[2025-10-10] VITALS: BP 144/93; PULSE 81; RESP 18; O2SAT 97
[2025-10-10 01:11] VITALS: BP 134/87; PULSE 90; RESP 21; TEMP 36.8; O2SAT 94
== END 2025-10-10 01:35 | disposition home or self-care (01) ==
PROVIDERS: Emergency Provider Specialist/Technologist Athletic Trainer; PCP Internal Medicine; Visit Provider Specialist/Technologist Athletic Trainer
DX: E11.65 Type 2 diabetes mellitus with hyperglycemia (principal); Z79.4 Long term (current) use of insulin; F17.210 Nicotine dependence, cigarettes, uncomplicated; Z79.85 Long-term (current) use of injectable non-insulin antidiabetic drugs
CPT/HCPCS: 80053; 81001; 82010; 82803; 82962; 85025; 96361; 96374; 99284; A4216